=== PATIENT | female | born 1940 | race Caucasian/White ===

== ENCOUNTER → 2016-11-01 | Outpatient (CLI) | payer MEDICARE ==
[2016-11-01 16:27] LABS: Anisocytosis Slight; CH 30.7; CHCM 32.1; HCT 36.3 % (34.0-46.0); HDW 2.49; HGB 11.8 gm/dL (11.4-16.0); MCH 31.2 pg (25.0-35.0); MCHC 32.4 g/dL (31.0-37.0); Mean Platelet Volume 6.7; RBC 3.78 m/uL (3.80-5.40); RDW 16.3 % (11.5-15.5); WBC 8.8 k/uL (3.8-10.6)
[2016-11-01 16:29] LABS: Appearance,Urine Clear (Clear); Bacteria,Urine Occasional /hpf; Bilirubin,Urine Negative (Negative); Glucose,Urine (UA) Negative (Negative); Ketones,Urine Negative (Negative); Leukocyte Esterase,Urine Moderate (Negative); Nitrite,Urine Negative (Negative); PH, Urine 6.5 (5.0-8.0); Particle Count 970; Protein,Urine Negative (Negative); Specific Gravity,Urine 1.006 (1.001-1.035); Squamous Epithelial Cell,Urine 1 /hpf (0-4); UA Billing (MACRO vs. MICRO) MICRO; Urobilinogen,Urine <2.0 mg/dL (<2.0); WBC,Urine 6 /hpf (0-5)
[2016-11-01 16:39] LABS: ALT 27 U/L (9-52); AST 25 U/L (14-36); Alkaline Phosphatase 49 U/L (38-126); Anion Gap 10 mmol/L; Blood Urea Nitrogen 15 mg/dL (7-17); Calcium 9.7 mg/dL (8.4-10.2); Carbon Dioxide 26 mmol/L (22-30); Chloride 102 mmol/L (98-107); Glucose 121 mg/dL (74-99); Non-African American GFR(MDRD) >60 (>60 ml/min/1.73 sqM); Phosphorous 3.8 mg/dL (2.5-4.5); Potassium 5.4 mmol/L (3.5-5.1); Sodium 138 mmol/L (137-145); Total Bilirubin 0.5 mg/dL (0.2-1.3); Total Protein 7.2 g/dL (6.3-8.2)
[2016-11-01 17:45] LABS: Vitamin B12 638 pg/mL
[2016-11-01 19:08] LABS: Hemoglobin A1C 5.6 % (4.2-6.1)
== END | disposition home or self-care (01) ==
LOC: LABWHC1 15:52
PROVIDERS: ATTEND Psychiatry & Neurology Psychiatry
DX: E11.9 Type 2 diabetes mellitus without complications (principal); E03.9 Hypothyroidism, unspecified
CPT/HCPCS: 36415; 80053; 81001; 82306; 82607; 82746; 83036; 84100; 84439; 84443; 85027; 87077; 87086; 87186

== ENCOUNTER → 2017-02-05 | Outpatient (CLI) | payer MEDICARE | END | disposition home or self-care (01) | LOC: LABWHC1 15:44 | PROVIDERS: ATTEND Internal Medicine | DX: E87.5 Hyperkalemia (principal) | CPT/HCPCS: 36415; 84132 ==

== ENCOUNTER → 2017-02-19 | Outpatient (CLI) | payer MEDICARE | END | disposition home or self-care (01) | LOC: LABWHC1 13:50 | PROVIDERS: ATTEND Internal Medicine | DX: J44.9 Chronic obstructive pulmonary disease, unspecified (principal); E11.9 Type 2 diabetes mellitus without complications; E87.5 Hyperkalemia; E78.5 Hyperlipidemia, unspecified; I10 Essential (primary) hypertension; E55.9 Vitamin D deficiency, unspecified | CPT/HCPCS: 36415; 84132 ==

== ENCOUNTER → 2017-02-28 | Outpatient (CLI) | payer MEDICARE ==
[2017-02-28 09:39] LABS: Basophils # (A) 0.1 k/uL (0-0.2); Basophils % (A) 1 %; CH 29.6; CHCM 33.3; Eosinophils # (A) 0.3 k/uL (0-0.7); Eosinophils % (A) 5 %; HCT 35.5 % (34.0-46.0); HDW 2.52; HGB 11.8 gm/dL (11.4-16.0); Luc # (Auto) 0.17; Luc % (Auto) 3; Lymphocytes # (A) 2.2 k/uL (1.0-4.8); Lymphocytes % (A) 35 %; MCH 29.6 pg (25.0-35.0); MCHC 33.2 g/dL (31.0-37.0); Mean Platelet Volume 7.1; Monocytes # (A) 0.4 k/uL (0-1.0); Monocytes % (A) 6 %; Neutrophils # (A) 3.1 k/uL (1.3-7.7); Neutrophils % (A) 50 %; RBC 3.98 m/uL (3.80-5.40); RDW 15.6 % (11.5-15.5); WBC 6.2 k/uL (3.8-10.6); WBC (Perox) 6.62
[2017-02-28 11:05] LABS: Hemoglobin A1C 5.7 % (4.2-6.1)
[2017-02-28 11:26] LABS: Erythrocyte Sedimentation Rate 21 mm/hr (0-20)
[2017-02-28 11:46] LABS: ALT 25 U/L (9-52); AST 17 U/L (14-36); Alkaline Phosphatase 65 U/L (38-126); Anion Gap 10 mmol/L; Blood Urea Nitrogen 17 mg/dL (7-17); C Reactive Protein 7.7 mg/L (<10.0); Calcium 9.8 mg/dL (8.4-10.2); Carbon Dioxide 25 mmol/L (22-30); Chloride 102 mmol/L (98-107); Glucose 84 mg/dL (74-99); Magnesium 1.7 mg/dL (1.6-2.3); Non-African American GFR(MDRD) >60 (>60 ml/min/1.73 sqM); Sodium 137 mmol/L (137-145); Total Bilirubin 0.2 mg/dL (0.2-1.3); Total Protein 6.5 g/dL (6.3-8.2)
== END | disposition home or self-care (01) ==
LOC: LABWHC1 08:15
PROVIDERS: ATTEND Internal Medicine
DX: E27.40 Unspecified adrenocortical insufficiency (principal); D64.9 Anemia, unspecified; E11.9 Type 2 diabetes mellitus without complications; E87.8 Other disorders of electrolyte and fluid balance, not elsewhere classified
CPT/HCPCS: 36415; 80053; 82533; 83036; 83735; 85025; 85652; 86140

== ENCOUNTER → 2017-05-01 | Outpatient (CLI) | payer MEDICARE ==
--- NOTE | 2017-05-01 16:59 | XR ---
EXAMINATION TYPE: XR chest 2V DATE OF EXAM: 05/01/2017 COMPARISON: 04/29/2014 HISTORY: Cough TECHNIQUE: Frontal and lateral views of the chest are obtained. FINDINGS: There is no heart failure nor confluent pneumonic infiltrate. Heart and mediastinum are no rmal. There is no pleural effusion. Bones are osteopenic. IMPRESSION: No active cardiopulmonary disease. No change.
== END | disposition home or self-care (01) ==
LOC: RADXRMAIN 16:05
PROVIDERS: ATTEND Internal Medicine
DX: J06.9 Acute upper respiratory infection, unspecified (principal)
CPT/HCPCS: 71020

== ENCOUNTER → 2017-06-20 | Outpatient (CLI) | payer MEDICARE | END | disposition home or self-care (01) | LOC: LABWHC1 15:54 | PROVIDERS: ATTEND Internal Medicine | DX: E53.8 Deficiency of other specified B group vitamins (principal) | CPT/HCPCS: 36415; 82607; 83921 ==

== ENCOUNTER → 2017-08-30 | Outpatient (CLI) | payer MEDICARE ==
[2017-08-30 12:31] LABS: ALT 32 U/L (9-52); AST 23 U/L (14-36); Anion Gap 10 mmol/L; Blood Urea Nitrogen 26 mg/dL (7-17); C Reactive Protein <5.0 mg/L (<10.0); Calcium 9.7 mg/dL (8.4-10.2); Carbon Dioxide 28 mmol/L (22-30); Chloride 103 mmol/L (98-107); Cholesterol 262 mg/dL (<200); Creatine Kinase 50 U/L (30-135); Glucose 114 mg/dL (74-99); HDL Cholesterol 52 mg/dL (40-60); LDL Cholesterol,Calculated 183 mg/dL (0-99); Potassium 5.4 mmol/L (3.5-5.1); Sodium 141 mmol/L (137-145); Triglycerides 135 mg/dL (<150)
[2017-08-30 15:49] LABS: Iron Saturation 17.37 (12.00-45.00)
[2017-08-30 15:54] LABS: Hemoglobin A1C 5.6 % (4.0-6.0)
[2017-08-30 15:59] LABS: Vitamin D 25 Hydroxy 31.2 ng/mL (30.0-100.0)
== END | disposition home or self-care (01) ==
LOC: LABWHC1 11:40
PROVIDERS: ATTEND Internal Medicine
DX: E11.9 Type 2 diabetes mellitus without complications (principal); E87.5 Hyperkalemia; E78.5 Hyperlipidemia, unspecified; E55.9 Vitamin D deficiency, unspecified; D64.9 Anemia, unspecified
CPT/HCPCS: 36415; 80048; 80061; 82306; 82550; 82728; 83036; 83540; 83550; 84450; 84460; 85652; 86140

== ENCOUNTER 2017-12-01 13:46 | Observation (INO) | payer MEDICARE ==
[2017-12-01] MEDS ORDERED: ASPIRIN 81 MG PO STA (14:06)
--- NOTE | 2017-12-01 14:11 | ED ---
Chest Pain HPI - General Chief Complaint: Chest Pain Stated Complaint: chest; side and back pain; sweaty Time Seen by Provider: 12/01/17 13:50 Source: patient, RN notes reviewed Mode of arrival: wheelchair Limitations: no limitations - History of Present Illness Initial Comments: This is a 76-year-old female with a history of coronary artery disease status post a total of 5 stents who was recently diagnosed with a heart murmur who states she's been having intermittent episodes of left-sided chest pain is burning in nature on and off recently. He states that today she had an episode last about half hour until she took nitroglycerin. She stated it was about a 8/ 10 in severity. She also has some diaphoresis with it. Currently she is pain- free . She did state that the pain this afternoon did radiate down her left arm and to between her shoulder blades. She does she states she's been having some burning sensation to her lower extremities on and off. No abdominal pain currently she is pain-free after the nitroglycerin no fevers or chills no shortness breath no other modifying symptoms or complaints at this time MD Complaint: chest pain - Related Data Home Medications Medication Instructions Recorded Confirmed Aspirin EC [Ecotrin Low Dose] 81 mg PO DAILY 04/29/14 12/01/17 Atenolol 100 mg PO HS 04/29/14 12/01/17 Atorvastatin [Lipitor] 80 mg PO HS 04/29/14 12/01/17 Cevimeline [Evoxac] 30 mg PO TID 04/29/14 12/01/17 Cyclobenzaprine [Flexeril] 10 mg PO HS 04/29/14 12/01/17 Folic Acid 1 mg PO DAILY 04/29/14 12/01/17 Gabapentin [Neurontin] 600 mg PO TID 04/29/14 12/01/17 Glimepiride [Amaryl] 1 mg PO DAILY 04/29/14 12/01/17 HYDROcodone/APAP 10-325MG [[place] 1 each PO Q6H PRN 04/29/14 12/01/17 10-325] Nitroglycerin Extended Release 6.5 mg PO BID 04/29/14 12/01/17 [Nitro-Bid] PARoxetine HCL [Paxil] 30 mg PO DAILY 04/29/14 12/01/17 metFORMIN HCL [Glucophage] 500 mg PO BID 04/29/14 12/01/17 Lisinopril [Zestril] 10 mg PO DAILY 04/29/15 12/01/17 Metoclopramide [Reglan] 10 mg PO ACHS PRN 04/29/15 12/01/17 Previous Rx's Medication Instructions Recorded Nitroglycerin Sl Tabs [Nitrostat] 0.4 mg SUBLINGUAL DIRECTED PRN 05/02/14 #25 tab Allergies Allergy/AdvReac Type Severity Reaction Status Date / Time latex Allergy Itching Verified 12/01/17 13:57 Sulfa (Sulfonamide Allergy Rash/Hives Verified 12/01/17 13:57 Antibiotics) embrel Allergy Rash/Hives Uncoded 12/01/17 13:57 tape Allergy Rash/Hives Uncoded 12/01/17 13:57 Review of Systems ROS Statement: Those systems with pertinent positive or pertinent negative responses have been documented in the HPI. ROS Other: All systems not noted in ROS Statement are negative. EKG Findings - EKG Results: EKG: interpreted by NILES, sinus rhythm (EKG shows a sinus rhythm rate is 78. Interval 182 QRS duration 72 QT since QTC of 46/[address] T-wave configuration) Past Medical History Past Medical History: Chest Pain / Angina, Diabetes Mellitus, Deep Vein Thrombosis (DVT), Eye Disorder, Fibromyalgia, Hyperlipidemia, Hypertension, Rheumatoid Arthritis (RA) Additional Past Medical History / Comment(s): Cataracts History of Any Multi-Drug Resistant Organisms: None Reported Past Surgical History: Appendectomy, Cholecystectomy, Heart Catheterization With Stent, Hernia Repair, Hysterectomy, Tonsillectomy Additional Past Surgical History / Comment(s): 5 heart stents. Cataracts in both eyes. Past Anesthesia/Blood Transfusion Reactions: No Reported Reaction Date of Last Stent Placement:: 2011 Past Psychological History: Depression Smoking Status: Former smoker - Past Family History Father Additional Family Medical History / Comment(s): pt stated had heart issues, but not sure what Mother Additional Family Medical History / Comment(s): leaking valve General Exam - General Exam Comments Initial Comments: This is a well-developed well-nourished awake alert oriented 3 female Limitations: no limitations General appearance: alert, anxious Head exam: Present: atraumatic, normocephalic, normal inspection Eye exam: Present: normal appearance, PERRL, EOMI. Absent: scleral icterus, conjunctival injection, periorbital swelling ENT exam: Present: normal exam, mucous membranes moist Neck exam: Present: normal inspection. Absent: tenderness, meningismus, lymphadenopathy Respiratory exam: Present: normal lung sounds bilaterally. Absent: respiratory distress, wheezes, rales, rhonchi, stridor Cardiovascular Exam: Present: regular rate, normal rhythm, normal heart sounds. Absent: systolic murmur, diastolic murmur, rubs, gallop, clicks GI/Abdominal exam: Present: soft, normal bowel sounds. Absent: distended, tenderness, guarding, rebound, rigid Extremities exam: Present: normal inspection, full ROM, normal capillary refill. Absent: tenderness, pedal edema, joint swelling, calf tenderness Back exam: Present: normal inspection Neurological exam: Present: alert, oriented X3, CN II-XII intact Psychiatric exam: Present: normal affect, normal mood Skin exam: Present: warm, dry, intact, normal color. Absent: rash Course Vital Signs 12/01/17 12/01/17 12/01/17 13:55 14:22 15:01 Temperature 97.6 F Pulse Rate 84 78 87 Respiratory 18 18 18 Rate Blood Pressure 194/85 196/86 167/81 O2 Sat by Pulse 98 100 99 Oximetry 12/01/17 15:55 Temperature Pulse Rate 83 Respiratory 18 Rate Blood Pressure 183/81 O2 Sat by Pulse 100 Oximetry - Reevaluation(s) Reevaluation #1: 12/01/17 16:04 Patient stated he pain-free for well she has some recurrence of pain in the left chest though no changes on the monitor. Chest Pain MDM - MDM I did review the imaging and report no acute findings I did discuss findings with the patient family members patient be admitted for evaluation by cardiology workup thus far is negative however the symptoms are suspicious. Disposition Clinical Impression: Unstable angina pectoris, Chest pain Disposition: ADMITTED IP TO THIS [facility] Condition: Stable Referrals: Cornelio Garcia MD [Primary Care Provider] - 1-2 days
[2017-12-01 14:38] LABS: Anisocytosis Slight; Basophils % (A) 0 %; Eosinophils # (A) 0.1 k/uL (0-0.7); Eosinophils % (A) 1 %; HCT 34.3 % (34.0-46.0); HGB 11.5 gm/dL (11.4-16.0); Lymphocytes # (A) 1.4 k/uL (1.0-4.8); Lymphocytes % (A) 13 %; MCH 30.3 pg (25.0-35.0); MCHC 33.6 g/dL (31.0-37.0); Mean Platelet Volume 7.4; Monocytes # (A) 0.7 k/uL (0-1.0); Monocytes % (A) 6 %; Neutrophils # (A) 8.7 k/uL (1.3-7.7); Neutrophils % (A) 79 %; Platelet Count 272 k/uL (150-450); RBC 3.81 m/uL (3.80-5.40); RDW 16.4 % (11.5-15.5)
[2017-12-01 14:47] LABS: ALT 23 U/L (9-52); AST 18 U/L (14-36); Albumin 4.5 g/dL (3.5-5.0); Alkaline Phosphatase 78 U/L (38-126); Anion Gap 19 mmol/L; Blood Urea Nitrogen 22 mg/dL (7-17); Calcium 10.2 mg/dL (8.4-10.2); Carbon Dioxide 20 mmol/L (22-30); Chloride 103 mmol/L (98-107); Glucose 83 mg/dL (74-99); Magnesium 1.9 mg/dL (1.6-2.3); Potassium 4.3 mmol/L (3.5-5.1); Sodium 142 mmol/L (137-145); Total Bilirubin 0.4 mg/dL (0.2-1.3); Total Protein 7.4 g/dL (6.3-8.2)
[2017-12-01 14:52] LABS: Partial Thromboplastin Time 20.5 sec (22.0-30.0); Prothrombin Time 9.5 sec (9.0-12.0)
--- NOTE | 2017-12-01 14:55 | XR ---
EXAMINATION TYPE: XR chest 2V DATE OF EXAM: 12/01/2017 COMPARISON: 05/01/2017 HISTORY: Chest pain TECHNIQUE: Frontal and lateral views of the chest are obtained. FINDINGS: Heart and mediastinum are normal. Lungs are clear. There is no pleural effusion. There are chest leads. Bony thorax is intact. IMPRESSION: No active cardiopulmonary disease. No change.
[2017-12-01 14:58] LABS: Creatine Kinase 24 U/L (30-135)
[2017-12-01 15:10] LABS: Creatine Kinase MB 0.3 ng/mL (0.0-2.4); Troponin I <0.012 ng/mL (0.000-0.034)
[2017-12-01] MEDS ORDERED: NITROGLYCERIN SL TABS 0.4 MG TAB SUBLINGUAL PRN (16:05)
[2017-12-01] MEDS ORDERED: METOCLOPRAMIDE 10 MG TAB PO PRN (16:08)
[2017-12-01] MEDS ORDERED: SODIUM CHLORIDE 0.9% 1,000 ML IV SCH (16:15)
[2017-12-01 17:21] LABS: Glucose,Whole Blood 141 mg/dL (75-99)
[2017-12-01 17:43] VITALS: BMI 30.9
[2017-12-01] MEDS: metFORMIN 500 MG TAB PO SCH (17:53)
[2017-12-01] MEDS: INSULIN ASPART 100 UNIT/ML 1 ML 10 ML VIAL SQ SCH ×2 (17:54→21:52)
[2017-12-01] MEDS: PANTOPRAZOLE 40 MG TABLET PO SCH (18:36)
[2017-12-01] MEDS: HYDROcodone/APAP 10-325MG 1 EACH TAB PO PRN (18:53)
[2017-12-01 20:56] LABS: Creatine Kinase 20 U/L (30-135)
[2017-12-01 21:09] LABS: Creatine Kinase MB 0.3 ng/mL (0.0-2.4); Troponin I <0.012 ng/mL (0.000-0.034)
[2017-12-01] MEDS: CEVIMELINE 30 MG CAP PO SCH (21:53)
[2017-12-01] MEDS: CYCLOBENZAPRINE 10 MG TAB PO SCH (21:53)
[2017-12-01] MEDS: ATENOLOL 50 MG TAB PO SCH (21:53)
[2017-12-01] MEDS: GABAPENTIN 300 MG CAP PO SCH (21:53)
[2017-12-01] MEDS: ATORVASTATIN 80 MG TAB PO SCH (21:54)
[2017-12-01] MEDS: NITROGLYCERIN EXTENDED RELEASE 6.5 MG CAPSULE.ER PO SCH (21:54)
[2017-12-01 22:05] LABS: Glucose,Whole Blood 83 mg/dL (75-99)
--- NOTE | 2017-12-01 23:13 | HP ---
HISTORY AND PHYSICAL DATE OF ADMISSION: 12/01/2017. ATTENDING PHYSICIAN: Dr. Garcia. HISTORY OF PRESENT ILLNESS: This is a 76-year-old white female who is being admitted by me for Dr. Garcia, who is her primary care physician, and I am covering Dr. Garcia during this weekend. The patient was brought to the emergency room with complaints of chest pain. The patient was having this chest pain on and off for the past 1-2 weeks and it was like a severe burning pain, but it was radiating to the left arm and also since she had some episodes of diaphoresis and she is known to have coronary artery disease and has had a total of 5 stents placed and she has been following with Dr. Ferraro, information security engineer. In the emergency room, her EKG showed a normal sinus rhythm, nonspecific ST changes. There are no acute EKG changes. Apparently her cardiac enzymes are within normal limits and recently Dr. Ferraro noticed a murmur and he was going to further evaluate her cardiac functions and also complete cardiac evaluation. The patient was admitted to the hospital for further evaluation and treatment. PAST MEDICAL HISTORY: Reveals as mentioned before. She is known to have coronary artery disease, hypertensive cardiovascular disease, diabetes mellitus and peripheral neuropathy and rheumatoid arthritis. CURRENT MEDICATIONS: Include: 1. Aspirin 81 mg daily. 2. Atenolol 100 mg p.o. daily. 3. Lipitor 80 mg p.o. daily. 4. Flexeril 10 mg daily. 5. Neurontin 600 mg p.o. t.i.d. 6. Glimepiride 1 mg daily and. 7. [place] 10/325 one every 6 hours p.r.n. 8. Nitro-Bid 30 mg p.o. daily. 9. Nitroglycerin sublingual p.r.n. 10.Paxil 30 mg p.o. daily. 11.Metformin 500 mg p.o. b.i.d. 12.Lisinopril 10 mg daily and. 13.Reglan 10 mg p.o. daily at bedtime p.r.n. ALLERGIES: She is allergic to LATEX, SULFA, ENBREL. REVIEW OF SYSTEMS: The patient denies any headache. Appetite has been good. Bowels regular. She has chest pain as mentioned before and she has no shortness of breath. She has no abdominal pain. She has no polyuria or dysuria. She has no neurological symptoms. PHYSICAL EXAMINATION: Reveals a 76-year-old white female, morbidly obese. She is alert and oriented. There is no jaundice. There is no generalized lymphadenopathy. No petechia or bruises. Temperature 97.6, pulse 84 per minute, blood pressure 167/81. Chest x-ray: No acute process. The patient was admitted to the hospital for further evaluation and treatment. Her family history reveals that the patient has a strong family history of heart disease and coronary artery disease and arthritis. IMPRESSION: 1. Chest pain, unstable angina. 2. History of coronary artery disease, status post multiple stent placements. 3. Hypertensive cardiovascular disease. 4. Diabetes mellitus. 5. Peripheral neuropathy. 6. Rheumatoid arthritis. PLAN: Patient will be admitted to the hospital. Heart will be monitored with telemetry. The patient is back on her previous home medications. Diabetes will be controlled with NovoLog sliding scale. Will get cardiology consultation. Prognosis is guarded. The diagnosis, prognosis and therapeutic plans were discussed in detail with the patient. MMLAUREANOL / IJN: [id number] /
[2017-12-02 04:03] LABS: Cholesterol 149 mg/dL (<200); HDL Cholesterol 56 mg/dL (40-60); LDL Cholesterol,Calculated 69 mg/dL (0-99); Triglycerides 122 mg/dL (<150)
[2017-12-02 04:06] LABS: Creatine Kinase <20 U/L (30-135)
[2017-12-02 04:19] LABS: Creatine Kinase MB 0.3 ng/mL (0.0-2.4); Troponin I <0.012 ng/mL (0.000-0.034)
[2017-12-02] MEDS: HYDROcodone/APAP 10-325MG 1 EACH TAB PO PRN ×2 (08:30→22:14)
--- NOTE | 2017-12-02 08:52 | P.CRDCN ---
History of Present Illness Consult date: 12/02/17 Consult reason: chest pain History of present illness: This is a 76-year-old female patient who presented to the emergency department with left anterior chest burning radiating to her left arm and left scapula. The pain started yesterday afternoon but she states has been on and off for a few days. She states it is different than the pain that she had prior to her myocardial infarction and stent placement but is in the same location. She denies any shortness of breath. Had significant diaphoresis associated with her pain. She follows with Dr. Arriola in the office on a regular basis and last visit was 2 days ago. She had a recent echocardiogram and was told that she has a leaky a valve but was able to give details.The patient had [address] Matt and 3 stents and warmth in the past. She had some bilateral lower extremity pain below the knee found her feet during this episode. I examine her lower extremities and her pedal pulses are palpable bilaterally. No skin color changes noted. The patient did take one nitroglycerin with relief of her chest pain at home. Currently she has no chest discomfort and she is seen lying in bed in no acute distress. Review of Systems All systems: negative Constitutional: Reports as per HPI Eyes: denies blurred vision Cardiovascular: Reports as per HPI, Reports chest pain Past Medical History Past Medical History: Chest Pain / Angina, Diabetes Mellitus, Deep Vein Thrombosis (DVT), Eye Disorder, Fibromyalgia, Hyperlipidemia, Hypertension, Rheumatoid Arthritis (RA) Additional Past Medical History / Comment(s): Cataracts History of Any Multi-Drug Resistant Organisms: None Reported Past Surgical History: Appendectomy, Cholecystectomy, Heart Catheterization With Stent, Hernia Repair, Hysterectomy, Tonsillectomy Additional Past Surgical History / Comment(s): 5 heart stents. Cataracts in both eyes. Past Anesthesia/Blood Transfusion Reactions: No Reported Reaction Date of Last Stent Placement:: 2011 Past Psychological History: Depression Smoking Status: Former smoker Past Alcohol Use History: None Reported Past Drug Use History: None Reported - Past Family History Father Additional Family Medical History / Comment(s): pt stated had heart issues, but not sure what Mother Additional Family Medical History / Comment(s): leaking valve Medications and Allergies Home Medications Medication Instructions Recorded Confirmed Type Aspirin EC [Ecotrin Low Dose] 81 mg PO DAILY 04/29/14 12/01/17 History Atenolol 100 mg PO HS 04/29/14 12/01/17 History Atorvastatin [Lipitor] 80 mg PO HS 04/29/14 12/01/17 History Cevimeline [Evoxac] 30 mg PO BID 04/29/14 12/01/17 History Gabapentin [Neurontin] 600 mg PO TID 04/29/14 12/01/17 History HYDROcodone/APAP 10-325MG [[place] 1 tab PO TID PRN 04/29/14 12/01/17 History 10-325] metFORMIN HCL [Glucophage] 500 mg PO AC-BID 04/29/14 12/01/17 History DULoxetine HCL [Cymbalta] 90 mg PO DAILY 12/01/17 12/01/17 History Loratadine [Claritin] 10 mg PO DAILY 12/01/17 12/01/17 History Memantine [Namenda] 10 mg PO BID 12/01/17 12/01/17 History Methotrexate Sodium [Methotrexate] 25 mg PO Q7D 12/01/17 12/01/17 History Omeprazole [PriLOSEC] 20 mg PO DAILY 12/01/17 12/01/17 History Terazosin [Hytrin] 1 mg PO HS 12/01/17 12/01/17 History Tofacitinib Citrate [Xeljanz] 5 mg PO BID 12/01/17 12/01/17 History buPROPion HCL [Wellbutrin XL] 300 mg PO DAILY 12/01/17 12/01/17 History metFORMIN HCL [Glucophage] 1,000 mg PO AC-SUPPER 12/01/17 12/01/17 History valACYclovir [Valtrex] 500 mg PO DAILY 12/01/17 12/01/17 History Allergies Allergy/AdvReac Type Severity Reaction Status Date / Time etanercept [From Enbrel] Allergy Rash/Hives Verified 12/01/17 16:49 latex Allergy Itching Verified 12/01/17 16:49 Sulfa (Sulfonamide Allergy Rash/Hives Verified 12/01/17 16:49 Antibiotics) tape Allergy Rash/Hives Uncoded 12/01/17 13:57 Physical Exam Vitals: Vital Signs Temp Pulse Pulse Resp BP BP Pulse Ox 12/02/17 06:06 98.1 F 77 18 110/60 96 12/02/17 04:00 98.1 F 77 18 110/60 96 12/02/17 00:00 98.0 F 85 18 169/74 95 12/01/17 20:00 18 12/01/17 19:46 98.1 F 86 18 171/75 95 12/01/17 18:16 16 12/01/17 16:50 97.8 F 86 16 179/77 98 12/01/17 15:55 83 18 183/81 100 12/01/17 15:01 87 18 167/81 99 12/01/17 14:22 78 18 196/86 100 12/01/17 13:55 97.6 F 84 18 194/85 98 Intake and Output 12/01/17 12/02/17 12/02/17 22:59 06:59 14:59 Other: Voiding Method Toilet Toilet Toilet # Voids 1 Weight 78.6 kg 78.6 kg - Constitutional General appearance: average body habitus - EENT Eyes: normal appearance Ears: bilateral: normal - Neck No JVD Carotids: bilateral: upstroke normal - Respiratory Respiratory: bilateral: CTA - Cardiovascular Rhythm: regular Abnormal Heart Sounds: systolic murmur - Gastrointestinal General gastrointestinal: normal bowel sounds - Integumentary Integumentary: normal - Neurologic Neurologic: CNII-XII intact Results 12/01/17 14:22 12/01/17 14:22 Cardiac Enzymes 12/01/17 12/01/17 12/01/17 Range/Units 14:22 14:22 20:25 AST 18 (14-36) U/L CK-MB (CK-2) 0.3 0.3 (0.0-2.4) ng/mL Troponin I <0.012 <0.012 (0.000-0.034) ng/mL 12/02/17 Range/Units 03:19 AST (14-36) U/L CK-MB (CK-2) 0.3 (0.0-2.4) ng/mL Troponin I <0.012 (0.000-0.034) ng/mL Coagulation 12/01/17 Range/Units 14:22 PT 9.5 (9.0-12.0) sec APTT 20.5 L (22.0-30.0) sec Lipids 12/02/17 Range/Units 03:19 Triglycerides 122 (<150) mg/dL Cholesterol 149 (<200) mg/dL HDL Cholesterol 56 (40-60) mg/dL CBC 12/01/17 Range/Units 14:22 WBC 11.0 H (3.8-10.6) k/uL RBC 3.81 (3.80-5.40) m/uL Hgb 11.5 (11.4-16.0) gm/dL Hct 34.3 (34.0-46.0) % Plt Count 272 (150-450) k/uL Comprehensive Metabolic Panel 12/01/17 Range/Units 14:22 Sodium 142 (137-145) mmol/L Potassium 4.3 (3.5-5.1) mmol/L Chloride 103 (98-107) mmol/L Carbon Dioxide 20 L (22-30) mmol/L BUN 22 H (7-17) mg/dL Creatinine 0.70 (0.52-1.04) mg/dL Glucose 83 (74-99) mg/dL Calcium 10.2 (8.4-10.2) mg/dL AST 18 (14-36) U/L ALT 23 (9-52) U/L Alkaline Phosphatase 78 (38-126) U/L Total Protein 7.4 (6.3-8.2) g/dL Albumin 4.5 (3.5-5.0) g/dL Current Medications Generic Name Dose Route Start Last Admin Trade Name Freq PRN Reason Stop Dose Admin Hydrocodone Bitart/Acetaminophen 1 each 12/01/17 16:08 12/02/17 08:30 [place] 10 PO 1 each Q6H PRN Administration Pain Aspirin 325 mg 12/02/17 09:00 Aspirin PO DAILY RUKHSANA Atenolol 100 mg 12/01/17 21:00 12/01/17 21:53 Tenormin PO 100 mg HS RUKHSANA Administration Atorvastatin Calcium 80 mg 12/01/17 21:00 12/01/17 21:54 Lipitor PO 80 mg HS RUKHSANA Administration Cevimeline HCl 30 mg 12/01/17 22:00 12/01/17 21:53 Evoxac PO 30 mg TID RUKHSANA Administration Cyclobenzaprine HCl 10 mg 12/01/17 21:00 12/01/17 21:53 Flexeril PO 10 mg HS RUKHSANA Administration Folic Acid 1 mg 12/02/17 09:00 Folic Acid PO DAILY [facility] Gabapentin 600 mg 12/01/17 22:00 12/01/17 21:53 Neurontin PO 600 mg TID RUKHSANA Administration Glimepiride 1 mg 12/02/17 07:30 Amaryl PO AC-BRKFST [facility] Insulin Aspart 0 unit 12/01/17 17:30 12/01/17 21:52 Novolog SQ Not Given ACHS [facility] Protocol Lisinopril 10 mg 12/02/17 09:00 Zestril PO DAILY [facility] Metformin HCl 500 mg 12/01/17 17:30 12/01/17 17:53 Glucophage PO 500 mg BID-W/MEALS RUKHSANA Administration Metoclopramide HCl 10 mg 12/01/17 16:08 Reglan PO ACHS PRN Nausea And Vomiting Nitroglycerin 6.5 mg 12/01/17 21:00 12/01/17 21:54 Nitro-Bid PO Not Given BID [facility] Nitroglycerin 0.4 mg 12/01/17 16:05 Nitrostat SUBLINGUAL Q5M PRN Chest Pain Pantoprazole Sodium 40 mg 12/01/17 18:00 12/01/17 18:36 Protonix PO 40 mg AC-BID RUKHSANA Administration Paroxetine HCl 30 mg 12/02/17 09:00 Paxil PO DAILY [facility] Sodium Chloride 10 ml 12/01/17 21:00 12/01/17 21:54 Saline Flush IV 10 ml BID RUKHSANA Administration Intake and Output 12/01/17 12/02/17 12/02/17 22:59 06:59 14:59 Other: Voiding Method Toilet Toilet Toilet # Voids 1 Weight 78.6 kg 78.6 kg 12/01/17 14:22 12/01/17 14:22 - EKG Interpretation EKG: sinus rhythm (T-wave inversion in lead V1) Assessment and Plan Assessment: Chest pain History of CAD with stent 5 Diabetes mellitus Hypertension Hyperlipidemia Plan: Obtain recent echocardiogram and records from previous cardiac stents. The patient's pain is consistent with angina and we will start heparin drip and apply Nitropaste to the chest wall. Schedule for Lexiscan stress test tomorrow. Further recommendations will be made depending on the results. Thank you very common for this consultation.
[2017-12-02] MEDS: metFORMIN 500 MG TAB PO SCH ×2 (08:55→17:09)
[2017-12-02] MEDS: INSULIN ASPART 100 UNIT/ML 1 ML 10 ML VIAL SQ SCH ×4 (08:55→22:12)
[2017-12-02] MEDS: LISINOPRIL 10 MG TAB PO SCH (08:58)
[2017-12-02] MEDS: PANTOPRAZOLE 40 MG TABLET PO SCH ×2 (08:58→17:22)
[2017-12-02] MEDS: GABAPENTIN 300 MG CAP PO SCH ×3 (08:58→22:14)
[2017-12-02] MEDS: PARoxetine 10 MG TAB PO SCH (08:59)
[2017-12-02] MEDS: CEVIMELINE 30 MG CAP PO SCH ×3 (08:59→22:14)
[2017-12-02] MEDS: NITROGLYCERIN EXTENDED RELEASE 6.5 MG CAPSULE.ER PO SCH ×2 (08:59→22:14)
[2017-12-02] MEDS: GLIMEPIRIDE 1 MG TAB PO SCH (08:59)
[2017-12-02] MEDS: FOLIC ACID 1 MG TAB PO SCH (08:59)
[2017-12-02] MEDS ORDERED: NON-FORMULARY DRUG (Aspirin Ec 81 MG) PO SCH (09:00)
[2017-12-02 09:05] LABS: Glucose,Whole Blood 97 mg/dL (75-99)
[2017-12-02] MEDS: ASPIRIN 325 MG TAB PO SCH (09:16)
[2017-12-02] MEDS ORDERED: DOCUSATE 100 MG CAP PO PRN (11:34)
[2017-12-02 11:52] LABS: Glucose,Whole Blood 104 mg/dL (75-99)
[2017-12-02 16:51] LABS: Glucose,Whole Blood 105 mg/dL (75-99)
[2017-12-02] MEDS: ACETAMINOPHEN TAB 325 MG TAB PO PRN (20:03)
[2017-12-02] MEDS: ATENOLOL 50 MG TAB PO SCH (21:15)
[2017-12-02] MEDS: CYCLOBENZAPRINE 10 MG TAB PO SCH (21:15)
[2017-12-02] MEDS: ATORVASTATIN 80 MG TAB PO SCH (21:15)
[2017-12-02 21:32] LABS: Glucose,Whole Blood 149 mg/dL (75-99)
[2017-12-02] MEDS ORDERED: MELATONIN 5 MG TABLET PO SCH (22:15)
--- NOTE | 2017-12-02 22:50 | PN ---
PROGRESS NOTE DATE OF SERVICE: 12/02/2017. HISTORY: This is a 76-year-old white female who is known to have coronary artery disease and has had multiple stents placed in the past. Apparently, a total of 5 stents have been inserted in the past. She was brought to the emergency room because of recurrent burning chest pain, sometimes the pain radiates to the left arm. In the ER she has some relief with nitroglycerin. Her cardiac enzymes were within normal limits. EKG did not show any acute changes. Because of a history of coronary artery disease and stent placement, the patient was admitted to the hospital for further evaluation and treatment. The patient's heart was monitored with telemetry and she was placed back on her previous medications. [facility] were consulted and the patient was seen by Dr. Edwin Ferraro. He is following the patient. She is being further evaluated by the post graduate internship. The patient seems to be fairly comfortable. She denies any chest pain. Vital signs are stable. Heart is in sinus rhythm. Lungs are clear. There is no acute cardiorespiratory problems. We will continue current treatments and medications. Primary care physician is Dr. Garcia, he will resume her care starting tomorrow. MMODL / IJN: [id number] /
[2017-12-03] MEDS ORDERED: REGADENOSON 0.4 MG/5 ML SYRINGE IV ONE (07:49)
[2017-12-03] MEDS ORDERED: AMINOPHYLLINE 500 MG/20 ML VIAL IV PRN (07:49)
[2017-12-03 08:10] LABS: Glucose,Whole Blood 101 mg/dL (75-99)
[2017-12-03 08:27] VITALS: RESP 18
[2017-12-03] MEDS: INSULIN ASPART 100 UNIT/ML 1 ML 10 ML VIAL SQ SCH ×2 (08:27→12:32)
[2017-12-03] MEDS ORDERED: AMINOPHYLLINE 250 MG/10 ML VIAL IV ONE (10:10)
--- NOTE | 2017-12-03 10:59 | NM ---
EXAMINATION TYPE: NM stress lexiscan cardiolite DATE OF EXAM: 12/03/2017 COMPARISON: NONE HISTORY: TECHNIQUE: After the intravenous administration of 10.6 mCi Tc 99m Sestamibi - Cardiolite resting SP ECT images acquired 45 minutes post injection. The patient received 0.4mg Lexiscan, 26.7 mCi Tc 99m Sestamibi - Stress images obtained [address] injection FINDINGS: Review of stress and rest SPECT images demonstrates no distinct perfusion abnormality. Gated analysi s shows normal wall motion with an estimated left ventricular ejection fraction of 55 %. IMPRESSION: No scintigraphic evidence for reversible ischemia.
[2017-12-03] MEDS: GABAPENTIN 300 MG CAP PO SCH (11:08)
[2017-12-03] MEDS: LISINOPRIL 10 MG TAB PO SCH (11:08)
[2017-12-03] MEDS: GLIMEPIRIDE 1 MG TAB PO SCH (11:08)
[2017-12-03] MEDS: FOLIC ACID 1 MG TAB PO SCH (11:08)
[2017-12-03] MEDS: NITROGLYCERIN EXTENDED RELEASE 6.5 MG CAPSULE.ER PO SCH (11:08)
[2017-12-03] MEDS: PANTOPRAZOLE 40 MG TABLET PO SCH (11:08)
[2017-12-03] MEDS: CEVIMELINE 30 MG CAP PO SCH (11:08)
[2017-12-03] MEDS: ASPIRIN 325 MG TAB PO SCH (11:08)
[2017-12-03] MEDS: PARoxetine 10 MG TAB PO SCH (11:09)
[2017-12-03] MEDS: ACETAMINOPHEN TAB 325 MG TAB PO PRN (11:14)
[2017-12-03 11:28] VITALS: BP 119/57; PULSE 72; TEMP 98.3
[2017-12-03] MEDS ORDERED: ASPIRIN 81 MG PO SCH (12:14)
[2017-12-03 12:15] LABS: Glucose,Whole Blood 177 mg/dL (75-99)
[2017-12-03] MEDS: metFORMIN 500 MG TAB PO SCH (12:16)
--- NOTE | 2017-12-03 12:22 | P.PN ---
Subjective Progress Note Date: 12/03/17 Mrs. Zazueta is a pleasant 76-year-old female past medical history significant for coronary artery disease, diabetes mellitus, dyslipidemia, hypertension and dyslipidemia. She follows with Dr. Ferraro in the office. We are following with her on this admission for an episode of chest pain. She has had no further symptoms of chest pain since admission. Most recent cardiac catheterization was reviewed from 04/2014 which revealed the left main artery was normal-sized with no significant stenosis, previously stented segment from proximal to mid LAD shows mild in-stent restenosis with portions up to 40-50%, circumflex artery mild to moderate disease, RCA is large dominant vessel and in the midportion has a 40-50% stenosis. Dobutamine stress echocardiogram was obtained at that time which showed no evidence of stress induced ischemia and so angioplasty was not performed, maximum medical therapy recommended. Telemetry tracings have been unremarkable. Cardiac enzymes negative 3, LDL 69 , HDL 56. Blood pressure 112/54 heart rate 63 afebrile maintaining oxygen saturation on room air. Objective - Vital Signs Vital signs: Vital Signs Temp 98.3 F 12/03/17 11:25 Pulse 72 12/03/17 11:58 Resp 18 12/03/17 11:58 BP 119/57 12/03/17 11:25 Pulse Ox 96 12/03/17 11:25 Intake & Output 12/02/17 12/03/17 12/03/17 18:59 06:59 18:59 Weight 78.471 kg Other: Voiding Method Toilet Toilet Toilet - Exam GENERAL: Well-appearing, well-nourished and in no acute distress. NECK: Supple without JVD or thyromegaly. LUNGS: Breath sounds clear to auscultation bilaterally. Respiration equal and unlabored. No wheezes, rales or rhonchi. HEART: Regular rate and rhythm with systolic murmur at the base, no rubs or gallops. S1 and S2 heard. EXTREMITIES: Normal range of motion, no edema. No clubbing or cyanosis. Peripheral pulses intact and strong. - Labs CBC & Chem 7: 12/01/17 14:22 12/01/17 14:22 Labs: Abnormal Lab Results - Last 24 Hours (Table) 12/02/17 12/02/17 12/03/17 Range/Units 16:49 21:13 08:07 POC Glucose (mg/dL) 105 H 149 H 101 H (75-99) mg/dL Assessment and Plan Assessment: ASSESSMENT 1. Chest pain, atypical. An acute coronary event has been ruled out. 2. History of coronary artery disease. 3. Hypertension 4. Dyslipidemia 5. Diabetes mellitus PLAN Office records have been reviewed. Lexiscan stress test was ordered and performed. There is no evidence for reversible ischemia with an EF of 55%. She is stable from a cardiac perspective. Follow-up with Dr. Ferraro in 2 weeks. Nurse Practitioner note has been reviewed, I agree with a documented findings and plan of care. Patient was seen and examined.
[2017-12-03] MEDS: HYDROcodone/APAP 10-325MG 1 EACH TAB PO PRN (12:37)
--- NOTE | 2017-12-03 13:43 | P.DS ---
Providers Date of admission: 12/01/17 16:05 Attending physician: Cornelio Garcia Consults: 12/01/17 16:05 Consult Physician Urgent Consulting Provider: Edwin Ferraro Consult Reason/Comments: Chest pain Do you want consulting provider notified?: Yes Primary care physician: Cornelio Garcia Patient Condition at Discharge: Stable Plan - Discharge Summary Discharge Rx Participant: No New Discharge Prescriptions: Continue metFORMIN HCL [Glucophage] 500 mg PO AC-BID Cevimeline [Evoxac] 30 mg PO BID Aspirin EC [Ecotrin Low Dose] 81 mg PO DAILY HYDROcodone/APAP 10-325MG [[place] 10-325] 1 tab PO TID PRN PRN Reason: Pain Gabapentin [Neurontin] 600 mg PO TID Atenolol 100 mg PO HS metFORMIN HCL [Glucophage] 1,000 mg PO AC-SUPPER valACYclovir [Valtrex] 500 mg PO DAILY Terazosin [Hytrin] 1 mg PO HS Omeprazole [PriLOSEC] 20 mg PO DAILY Methotrexate Sodium [Methotrexate] 25 mg PO Q7D buPROPion HCL [Wellbutrin XL] 300 mg PO DAILY Memantine [Namenda] 10 mg PO BID Loratadine [Claritin] 10 mg PO DAILY DULoxetine HCL [Cymbalta] 90 mg PO DAILY Tofacitinib Citrate [Xeljanz] 5 mg PO BID No Action Atorvastatin [Lipitor] 80 mg PO HS Discharge Medication List Aspirin EC [Ecotrin Low Dose] 81 mg PO DAILY 04/29/14 [History] Atenolol 100 mg PO HS 04/29/14 [History] Atorvastatin [Lipitor] 80 mg PO HS 04/29/14 [History] Cevimeline [Evoxac] 30 mg PO BID 04/29/14 [History] Gabapentin [Neurontin] 600 mg PO TID 04/29/14 [History] HYDROcodone/APAP 10-325MG [[place] 10-325] 1 tab PO TID PRN 04/29/14 [History] metFORMIN HCL [Glucophage] 500 mg PO AC-BID 04/29/14 [History] DULoxetine HCL [Cymbalta] 90 mg PO DAILY 12/01/17 [History] Loratadine [Claritin] 10 mg PO DAILY 12/01/17 [History] Memantine [Namenda] 10 mg PO BID 12/01/17 [History] Methotrexate Sodium [Methotrexate] 25 mg PO Q7D 12/01/17 [History] Omeprazole [PriLOSEC] 20 mg PO DAILY 12/01/17 [History] Terazosin [Hytrin] 1 mg PO HS 12/01/17 [History] Tofacitinib Citrate [Xeljanz] 5 mg PO BID 12/01/17 [History] buPROPion HCL [Wellbutrin XL] 300 mg PO DAILY 12/01/17 [History] metFORMIN HCL [Glucophage] 1,000 mg PO AC-SUPPER 12/01/17 [History] valACYclovir [Valtrex] 500 mg PO DAILY 12/01/17 [History] Follow up Appointment(s)/Referral(s): Edwin Ferraro MD [STAFF PHYSICIAN] - 2 Weeks Cornelio Garcia MD [Primary Care Provider] - 1-2 days
--- NOTE | 2017-12-03 13:43 | P.DS ---
Providers Date of admission: 12/01/17 16:05 Expected date of discharge: 12/03/17 Attending physician: Cornelio Garcia Consults: 12/01/17 16:05 Consult Physician Urgent Consulting Provider: Edwin Ferraro Consult Reason/Comments: Chest pain Do you want consulting provider notified?: Yes Primary care physician: Cornelio Garcia Patient Condition at Discharge: Stable Plan - Discharge Summary Discharge Rx Participant: No New Discharge Prescriptions: Continue metFORMIN HCL [Glucophage] 500 mg PO AC-BID Cevimeline [Evoxac] 30 mg PO BID Aspirin EC [Ecotrin Low Dose] 81 mg PO DAILY HYDROcodone/APAP 10-325MG [[place] 10-325] 1 tab PO TID PRN PRN Reason: Pain Gabapentin [Neurontin] 600 mg PO TID Atenolol 100 mg PO HS metFORMIN HCL [Glucophage] 1,000 mg PO AC-SUPPER valACYclovir [Valtrex] 500 mg PO DAILY Terazosin [Hytrin] 1 mg PO HS Omeprazole [PriLOSEC] 20 mg PO DAILY Methotrexate Sodium [Methotrexate] 25 mg PO Q7D buPROPion HCL [Wellbutrin XL] 300 mg PO DAILY Memantine [Namenda] 10 mg PO BID Loratadine [Claritin] 10 mg PO DAILY DULoxetine HCL [Cymbalta] 90 mg PO DAILY Tofacitinib Citrate [Xeljanz] 5 mg PO BID No Action Atorvastatin [Lipitor] 80 mg PO HS Discharge Medication List Aspirin EC [Ecotrin Low Dose] 81 mg PO DAILY 04/29/14 [History] Atenolol 100 mg PO HS 04/29/14 [History] Atorvastatin [Lipitor] 80 mg PO HS 04/29/14 [History] Cevimeline [Evoxac] 30 mg PO BID 04/29/14 [History] Gabapentin [Neurontin] 600 mg PO TID 04/29/14 [History] HYDROcodone/APAP 10-325MG [[place] 10-325] 1 tab PO TID PRN 04/29/14 [History] metFORMIN HCL [Glucophage] 500 mg PO AC-BID 04/29/14 [History] DULoxetine HCL [Cymbalta] 90 mg PO DAILY 12/01/17 [History] Loratadine [Claritin] 10 mg PO DAILY 12/01/17 [History] Memantine [Namenda] 10 mg PO BID 12/01/17 [History] Methotrexate Sodium [Methotrexate] 25 mg PO Q7D 12/01/17 [History] Omeprazole [PriLOSEC] 20 mg PO DAILY 12/01/17 [History] Terazosin [Hytrin] 1 mg PO HS 12/01/17 [History] Tofacitinib Citrate [Xeljanz] 5 mg PO BID 12/01/17 [History] buPROPion HCL [Wellbutrin XL] 300 mg PO DAILY 12/01/17 [History] metFORMIN HCL [Glucophage] 1,000 mg PO AC-SUPPER 12/01/17 [History] valACYclovir [Valtrex] 500 mg PO DAILY 12/01/17 [History] Follow up Appointment(s)/Referral(s): Edwin Ferraro MD [STAFF PHYSICIAN] - 2 Weeks Cornelio Garcia MD [Primary Care Provider] - 1-2 days
[2017-12-03 14:21] LABS: Hemoglobin A1C 5.9 % (4.0-6.0)
--- NOTE | 2017-12-03 14:33 | EST ---
EXERCISE STRESS DATE OF SERVICE: 12/03/2017 AGE: 76 SEX: F HT: 5'2' WT: 175 PROTOCOL: Lexiscan Cardiolite Stress Test HEART RATE REST: 58 BLOOD PRESSURE REST: 104/41 MAXIMUM HEART RATE ACHIEVED: 71 MAXIMUM BLOOD PRESSURE: 115/57 85% MPHR: 123 100% MPHR: 145 INDICATIONS: Baseline rhythm is sinus mechanism, rate 58, normal axis and intervals, nonspecific ST- T wave changes. Baseline blood pressure 104/41 mmHg. Patient's electrograph monitoring revealed no evidence of diagnostic ischemic ST deviation. Cardiolite was injected per protocol. CONCLUSION: 1. Nondiagnostic electrocardiograph stress testing. 2. Nuclear images will be reported separately. MMODL / IJN: [id number] /
--- NOTE | 2017-12-03 18:21 | DS ---
DISCHARGE SUMMARY DATE OF SERVICE: 12/03/2017. DATA: Her height is 5 feet 2 inches. Weight 78.47 kg. BSA 1.8 m2, BMI 31.6 kg/m2, on the obesity side. ALLERGIES: MULTIPLE: 1. ETANERCEPT (Enbrel) caused rash and hives). 2. LATEX caused itching. 3. SULFA and SULFONAMIDE DERIVATIVES caused rash and hives. 4. TAPE caused rash and hives. FINAL DIAGNOSES: 1. Chest pain with normal EKG and normal troponin. 2. High risk with a history of previous stent with coronary artery disease x5. 3. Underlying rheumatoid arthritis. 4. Diabetes mellitus, type 2. 5. Hypertension, currently controlled. 6. Gastroesophageal reflux disease. 7. Acute coronary event has been ruled out. 8. Cleared for discharge by cardiology group. Patient presented to the emergency room with the complaint of chest pain and perspiration (sweaty) with a history of previous 5 stents and coronary artery disease. She was seen in the emergency room and evaluated, with the impression of unstable angina. Cardiology consultation was ordered and she was placed on observation status. They called Dr. Willam Wallace, who saw the patient and did her history and physical. Patient was seen by Cardiology. They requested a Lexiscan stress test. This was subsequently done, and the result was negative. The patient was seen today and evaluated. She was clear of chest pain. She stated that when she came in she had sudden onset of flushing and her legs were warm as well. The patient has been treated for back pain by Dr. Lemons and she has been on Lyrica as well. The patient is seen today face to face. Her vital signs on discharge are temperature 98.3, pulse 72, respiratory rate 18, blood pressure 119/57 with a mean of 77 and oxygen saturation 96%. HEENT was negative. Neck was supple. Chest was clear to auscultation and percussion. HEART: PMI in the 5th intercostal space outside the midclavicular line with normal S1, S2. No gallop. The abdomen was obese. Positive bowel sounds. No organ enlargement. EXTREMITIES: No edema. Positive pulses and normal movement. Ambulatory. No neuro deficits. ASSESSMENT: Patient is in stable general condition for discharge after clearance from the cardiology group. 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 Ferraro, next week, and myself, Dr. Garcia, next week in 1-2 days. Further evaluation of the chest pain recurrence will be done as outpatient. During her present stress and SPECT scan she was found to have an ejection fraction of 55% with no evidence of abnormalities in the perfusion. MMODL / IJN: [id number] /
== END 2017-12-03 15:10 | disposition home or self-care (01) ==
LOC: EC 13:46 → 3OBS 16:05 → 3SUR 18:58 → 3OBS 12-03 07:18
PROVIDERS: ADMIT Internal Medicine; ATTEND Internal Medicine
DX: R07.89 Other chest pain (principal); R61 Generalized hyperhidrosis; M54.9 Dorsalgia, unspecified; I25.10 Atherosclerotic heart disease of native coronary artery without angina pectoris; Z95.5 Presence of coronary angioplasty implant and graft; M06.9 Rheumatoid arthritis, unspecified; I11.9 Hypertensive heart disease without heart failure; E66.01 Morbid (severe) obesity due to excess calories; Z68.31 Body mass index [BMI] 31.0-31.9, adult; E11.42 Type 2 diabetes mellitus with diabetic polyneuropathy; K21.9 Gastro-esophageal reflux disease without esophagitis; R01.1 Cardiac murmur, unspecified; I25.2 Old myocardial infarction; M79.661 Pain in right lower leg; M79.662 Pain in left lower leg; M79.7 Fibromyalgia; F32.9 Major depressive disorder, single episode, unspecified; E78.5 Hyperlipidemia, unspecified; Z79.899 Other long term (current) drug therapy; Z79.82 Long term (current) use of aspirin; Z79.84 Long term (current) use of oral hypoglycemic drugs; Z88.2 Allergy status to sulfonamides; Z88.8 Allergy status to other drugs, medicaments and biological substances; Z91.048 Other nonmedicinal substance allergy status; Z91.040 Latex allergy status; Z86.718 Personal history of other venous thrombosis and embolism; Z90.49 Acquired absence of other specified parts of digestive tract; Z87.891 Personal history of nicotine dependence
CPT/HCPCS: 99285 ×2; 36415; 94760; 93005; 93017; 83880; 80061; 80053; 82550 ×2; 82553 ×2; 83735; 84484 ×2; 85025; 85610; 85730; 83036; 71046; 78452; G0378 ×3; A9500; J2785; J0280

== ENCOUNTER 2018-01-03 10:13 | Inpatient (IN) | payer MEDICARE ==
[2018-01-03] MEDS ORDERED: IPRATROPIUM-ALBUTEROL 3 ML NEB INHALATION STA (10:44)
[2018-01-03] MEDS ORDERED: ASPIRIN 81 MG PO STA (10:45)
[2018-01-03] MEDS ORDERED: NITROGLYCERIN SL TABS 0.4 MG TAB SUBLINGUAL STA (10:45)
--- NOTE | 2018-01-03 10:49 | ED ---
General Adult HPI - General Chief complaint: Shortness of Breath Stated complaint: Chest Pain Time Seen by Provider: 01/03/18 10:17 Source: patient, family, EMS, RN notes reviewed Mode of arrival: EMS Limitations: no limitations - History of Present Illness Initial comments: Patient is a pleasant 77-year-old female presenting to the emergency Department with chest discomfort. Patient did not feel well last night however symptoms mostly started this morning. Patient has had a cough for a few days. Patient has been easily fatigued the past few days. Patient has dyspnea on exertion. Patient does have chest discomfort that is actually more in her back. Chest discomfort does feel somewhat like previously diagnosed heart problems. Patient does have a history of heart attack and several previous stents. Patient denies any fevers. - Related Data Home Medications Medication Instructions Recorded Confirmed Aspirin EC [Ecotrin Low Dose] 81 mg PO DAILY 04/29/14 01/03/18 Atenolol 100 mg PO HS 04/29/14 01/03/18 Atorvastatin [Lipitor] 80 mg PO HS 04/29/14 01/03/18 Cevimeline [Evoxac] 30 mg PO BID 04/29/14 01/03/18 Gabapentin [Neurontin] 600 mg PO TID 04/29/14 01/03/18 HYDROcodone/APAP 10-325MG [[place] 1 tab PO TID PRN 04/29/14 01/03/18 10-325] metFORMIN HCL [Glucophage] 500 mg PO AC-BID 04/29/14 01/03/18 DULoxetine HCL [Cymbalta] 90 mg PO DAILY 12/01/17 01/03/18 Loratadine [Claritin] 10 mg PO DAILY 12/01/17 01/03/18 Memantine [Namenda] 10 mg PO BID 12/01/17 01/03/18 Methotrexate Sodium [Methotrexate] 25 mg PO Q7D 12/01/17 01/03/18 Omeprazole [PriLOSEC] 20 mg PO DAILY 12/01/17 01/03/18 Terazosin [Hytrin] 1 mg PO HS 12/01/17 01/03/18 Tofacitinib Citrate [Xeljanz] 5 mg PO BID 12/01/17 01/03/18 buPROPion HCL [Wellbutrin XL] 300 mg PO DAILY 12/01/17 01/03/18 metFORMIN HCL [Glucophage] 1,000 mg PO AC-SUPPER 12/01/17 01/03/18 valACYclovir [Valtrex] 500 mg PO DAILY 12/01/17 01/03/18 Allergies Allergy/AdvReac Type Severity Reaction Status Date / Time etanercept [From Enbrel] Allergy Rash/Hives Verified 01/03/18 10:36 latex Allergy Itching Verified 01/03/18 10:36 Sulfa (Sulfonamide Allergy Rash/Hives Verified 01/03/18 10:36 Antibiotics) tape Allergy Rash/Hives Uncoded 12/01/17 13:57 Review of Systems ROS Statement: Those systems with pertinent positive or pertinent negative responses have been documented in the HPI. ROS Other: All systems not noted in ROS Statement are negative. Constitutional: Denies: fever Eyes: Denies: eye pain ENT: Denies: ear pain Respiratory: Reports: cough, dyspnea Cardiovascular: Reports: chest pain Endocrine: Reports: fatigue Gastrointestinal: Denies: abdominal pain Genitourinary: Denies: dysuria Musculoskeletal: Reports: as per HPI, back pain Skin: Denies: rash Neurological: Denies: weakness Past Medical History Past Medical History: Coronary Artery Disease (CAD), Chest Pain / Angina, CVA/ TIA, Diabetes Mellitus, Deep Vein Thrombosis (DVT), Eye Disorder, Fibromyalgia, Hyperlipidemia, Hypertension, Rheumatoid Arthritis (RA) Additional Past Medical History / Comment(s): Cataracts History of Any Multi-Drug Resistant Organisms: None Reported Past Surgical History: Appendectomy, Cholecystectomy, Heart Catheterization With Stent, Hernia Repair, Hysterectomy, Tonsillectomy Additional Past Surgical History / Comment(s): 5 heart stents. Cataracts in both eyes. Past Anesthesia/Blood Transfusion Reactions: No Reported Reaction Date of Last Stent Placement:: 2011 Past Psychological History: Depression Smoking Status: Former smoker Past Alcohol Use History: None Reported Past Drug Use History: None Reported - Past Family History Father Additional Family Medical History / Comment(s): pt stated had heart issues, but not sure what Mother Additional Family Medical History / Comment(s): leaking valve General Exam Limitations: no limitations General appearance: alert, in no apparent distress Head exam: Present: atraumatic Eye exam: Present: normal appearance, PERRL ENT exam: Present: normal oropharynx Neck exam: Present: normal inspection Respiratory exam: Present: rales (Left lung base) Cardiovascular Exam: Present: tachycardia GI/Abdominal exam: Present: soft. Absent: tenderness Extremities exam: Present: normal inspection. Absent: pedal edema, calf tenderness Back exam: Present: normal inspection. Absent: tenderness Neurological exam: Present: alert Psychiatric exam: Present: normal affect, normal mood Skin exam: Present: normal color Course Vital Signs 01/03/18 01/03/18 10:21 11:17 Temperature 99.6 F Pulse Rate 109 H 105 H Respiratory 28 H Rate Blood Pressure 132/62 O2 Sat by Pulse 93 L Oximetry - Reevaluation(s) Reevaluation #1: 01/03/18 13:02 Patient does meet sepsis criteria diagnosed at 1302. IV antibiotics will be ordered. Blood culture and lactic acid were already ordered. EKG Findings - EKG Comments: EKG Findings:: Sinus tachycardia 106. IN 194. QRS 100. QT 352. QTC 467. Normal axis. Inferior Q waves. There is some ST depression in leads aVL and V2 as well as leads V5 and V6. Medical Decision Making - Medical Decision Making Patient reevaluated and somewhat improved. Patient and family updated on results and plan. Patient did have recent stress test . patient does have EKG changes and somewhat elevated troponin. Patient will be placed on heparin. Patient will also be covered with antibiotics for pneumonia as well as treatment for congestive heart failure. Case was discussed in detail with Dr. Trina phelps, who will admit this patient. Cardiology will be placed on consult. - Lab Data Result diagrams: 01/03/18 10:31 01/03/18 10:31 Lab Results 01/03/18 01/03/18 01/03/18 Range/Units 10:31 10:31 10:31 WBC 9.4 (3.8-10.6) k/uL RBC 3.35 L (3.80-5.40) m/uL Hgb 9.9 L D (11.4-16.0) gm/dL Hct 31.1 L (34.0-46.0) % MCV 93.0 (80.0-100.0) fL MCH 29.7 (25.0-35.0) pg MCHC 31.9 (31.0-37.0) g/dL RDW 17.4 H (11.5-15.5) % Plt Count 249 (150-450) k/uL Neutrophils % 93 % Lymphocytes % 4 % Monocytes % 2 % Eosinophils % 0 % Basophils % 0 % Neutrophils # 8.7 H (1.3-7.7) k/uL Lymphocytes # 0.4 L (1.0-4.8) k/uL Monocytes # 0.2 (0-1.0) k/uL Eosinophils # 0.0 (0-0.7) k/uL Basophils # 0.0 (0-0.2) k/uL Hypochromasia Slight Anisocytosis Slight PT (9.0-12.0) sec INR (<1.2) APTT (22.0-30.0) sec D-Dimer (<0.60) mg/L FEU Sodium 137 (137-145) mmol/L Potassium 4.4 (3.5-5.1) mmol/L Chloride 105 (98-107) mmol/L Carbon Dioxide 18 L (22-30) mmol/L Anion Gap 14 mmol/L BUN 17 (7-17) mg/dL Creatinine 0.75 (0.52-1.04) mg/dL Est GFR (CKD-EPI)AfAm 90 (>60 ml/min/1.73 sqM) Est GFR (CKD-EPI)NonAf 78 (>60 ml/min/1.73 sqM) Glucose 153 H (74-99) mg/dL Calcium 8.4 (8.4-10.2) mg/dL Magnesium 1.7 (1.6-2.3) mg/dL Total Bilirubin 0.7 (0.2-1.3) mg/dL AST 18 (14-36) U/L ALT 28 (9-52) U/L Alkaline Phosphatase 64 (38-126) U/L Total Creatine Kinase 77 (30-135) U/L CK-MB (CK-2) 1.3 (0.0-2.4) ng/mL CK-MB (CK-2) Rel Index 1.7 Troponin I 0.179 H* (0.000-0.034) ng/mL NT-Pro-B Natriuret Pep pg/mL Total Protein 6.0 L (6.3-8.2) g/dL Albumin 3.6 (3.5-5.0) g/dL 01/03/18 01/03/18 Range/Units 10:31 10:31 WBC (3.8-10.6) k/uL RBC (3.80-5.40) m/uL Hgb (11.4-16.0) gm/dL Hct (34.0-46.0) % MCV (80.0-100.0) fL MCH (25.0-35.0) pg MCHC (31.0-37.0) g/dL RDW (11.5-15.5) % Plt Count (150-450) k/uL Neutrophils % % Lymphocytes % % Monocytes % % Eosinophils % % Basophils % % Neutrophils # (1.3-7.7) k/uL Lymphocytes # (1.0-4.8) k/uL Monocytes # (0-1.0) k/uL Eosinophils # (0-0.7) k/uL Basophils # (0-0.2) k/uL Hypochromasia Anisocytosis PT 10.2 (9.0-12.0) sec INR 1.0 (<1.2) APTT 20.2 L (22.0-30.0) sec D-Dimer 9.53 H (<0.60) mg/L FEU Sodium (137-145) mmol/L Potassium (3.5-5.1) mmol/L Chloride (98-107) mmol/L Carbon Dioxide (22-30) mmol/L Anion Gap mmol/L BUN (7-17) mg/dL Creatinine (0.52-1.04) mg/dL Est GFR (CKD-EPI)AfAm (>60 ml/min/1.73 sqM) Est GFR (CKD-EPI)NonAf (>60 ml/min/1.73 sqM) Glucose (74-99) mg/dL Calcium (8.4-10.2) mg/dL Magnesium (1.6-2.3) mg/dL Total Bilirubin (0.2-1.3) mg/dL AST (14-36) U/L ALT (9-52) U/L Alkaline Phosphatase (38-126) U/L Total Creatine Kinase (30-135) U/L CK-MB (CK-2) (0.0-2.4) ng/mL CK-MB (CK-2) Rel Index Troponin I (0.000-0.034) ng/mL NT-Pro-B Natriuret Pep 6180 pg/mL Total Protein (6.3-8.2) g/dL Albumin (3.5-5.0) g/dL - Radiology Data Radiology results: report reviewed (Computed tomography scan of the chest shows no pulmonary embolism. Findings favor in multifocal left pneumonia superimposed on congestive heart failure.), image reviewed (Chest x-ray shows congestive heart failure.) Critical Care Time Critical Care Time: Yes Total Critical Care Time: 32 Disposition Clinical Impression: Congestive heart failure, Pneumonia, NSTEMI (non-ST elevated myocardial infarction) Disposition: ADMITTED IP TO THIS HOSP Condition: Serious Referrals: Cornelio Garcia MD [Primary Care Provider] - 1-2 days Decision Time: 13:04
[2018-01-03 11:10] LABS: Albumin 3.6 g/dL (3.5-5.0); Anisocytosis Slight; Basophils % (A) 0 %; Calcium 8.4 mg/dL (8.4-10.2); Eosinophils % (A) 0 %; HCT 31.1 % (34.0-46.0); Hypochromasia Slight; Lymphocytes # (A) 0.4 k/uL (1.0-4.8); Lymphocytes % (A) 4 %; MCH 29.7 pg (25.0-35.0); MCHC 31.9 g/dL (31.0-37.0); Magnesium 1.7 mg/dL (1.6-2.3); Mean Platelet Volume 7.2; Monocytes # (A) 0.2 k/uL (0-1.0); Monocytes % (A) 2 %; Neutrophils # (A) 8.7 k/uL (1.3-7.7); Neutrophils % (A) 93 %; Platelet Count 249 k/uL (150-450); Potassium 4.4 mmol/L (3.5-5.1); RBC 3.35 m/uL (3.80-5.40); RDW 17.4 % (11.5-15.5); Total Bilirubin 0.7 mg/dL (0.2-1.3); WBC 9.4 k/uL (3.8-10.6)
[2018-01-03 11:11] LABS: HGB 9.9 gm/dL (11.4-16.0)
[2018-01-03 11:25] LABS: Prothrombin Time 10.2 sec (9.0-12.0)
[2018-01-03 11:28] LABS: D-Dimer 9.53 mg/L FEU (<0.60); Partial Thromboplastin Time 20.2 sec (22.0-30.0)
[2018-01-03 11:35] LABS: Creatine Kinase MB 1.3 ng/mL (0.0-2.4)
[2018-01-03 11:43] LABS: Troponin I 0.179 ng/mL (0.000-0.034)
--- NOTE | 2018-01-03 11:43 | XR ---
EXAMINATION TYPE: XR chest 2V DATE OF EXAM: 01/03/2018 COMPARISON: Chest x-ray December 01, 2012 HISTORY: Difficulty breathing and chest pain. TECHNIQUE: Frontal and lateral views of the chest are obtained. FINDINGS: Anterior fusion plate lower cervical spine is redemonstrated. There is new cardiomegaly wi th small bilateral pleural effusions seen best on lateral chest x-ray and moderate central congestion as well as alveolar edema bilaterally. No pneumothorax is seen. IMPRESSION: Suspect CHF exacerbation as there is new cardiomegaly with small bilateral pleural effus ions and moderate central vascular congestion as well as central alveolar edema all identified on cur rent study.
[2018-01-03] MEDS ORDERED: HYDROcodone/APAP 5-325MG 1 EACH TAB PO STA (12:16)
--- NOTE | 2018-01-03 12:21 | CT ---
EXAMINATION TYPE: CT angio chest DATE OF EXAM: 01/03/2018 COMPARISON: Chest radiograph of the same date HISTORY: SOB, chest pain, back pain CT DLP: 575 mGycm. Automated Exposure Control for Dose Reduction was Utilized. CONTRAST: CTA scan of the thorax is performed with IV Contrast, patient injected with 100 mL of Isovue 370, pul monary embolism protocol. MIP Images are created on CT scanner and reviewed. FINDINGS: LUNGS: There is a moderate right and small left pleural effusion with associated bibasilar compressiv e atelectasis. In addition to interstitial prominence/interlobular septal thickening, multifocal grou ndglass opacities, and pulmonary vascular engorgement there are left upper lobe and lingular as well as to a lesser degree left lower lobe opacities which demonstrate areas of decreased enhancement comp atible with multifocal pneumonia. There is no pleural effusion or pneumothorax seen. The tracheobron chial tree is patent. MEDIASTINUM: There is satisfactory enhancement of the pulmonary artery and its branches, there is no CT evidence for pulmonary embolism. Mediastinal adenopathy is seen with the largest nodes in the subc arinal space measuring 1.3 cm in short axis and the right perihilar space measuring 1.2 cm in short a xis. No cardiomegaly or pericardial effusion is seen. Coronary artery stent is noted. Moderate athe rosclerosis is noted of the thoracic aorta and upper abdominal aorta. OTHER: There is a moderate hiatal hernia present. There is diffuse pancreatic parenchymal atrophy. Ch olecystectomy clips are within the gallbladder fossa. Mild to moderate multilevel degenerative change of the thoracic spine are noted. IMPRESSION: 1. No evidence of pulmonary embolism. 2. Findings favoring multifocal left-sided pneumonia superimposed upon sequela of congestive heart fa ilure. 3. Moderate hiatal hernia. 4. Mediastinal adenopathy, likely reactive to impression #2.
[2018-01-03] MEDS ORDERED: HEPARIN SODIUM,PORCINE 5,000 UNIT/ML 1 ML VIAL IV ONE (13:04)
[2018-01-03] MEDS ORDERED: NITROGLYCERIN SL TABS 0.4 MG TAB SUBLINGUAL PRN (13:04)
[2018-01-03] MEDS ORDERED: HEPARIN SODIUM,PORCINE 5,000 UNIT/ML 1 ML VIAL IV PRN (13:04)
[2018-01-03] MEDS ORDERED: PNEUMONIA PROTOCOL UTILIZED 1 EACH MISC PO PRN (13:04)
[2018-01-03] MEDS ORDERED: AZITHROMYCIN 500 MG in SODIUM CHLORIDE 0.9% 250 ML IVPB STA (13:09)
[2018-01-03] MEDS ORDERED: cefTRIAXone IN SWFI 1,000 MG/10 ML SYRINGE IVP STA (13:10)
--- NOTE | 2018-01-03 13:49 | XR ---
EXAMINATION TYPE: XR KUB DATE OF EXAM: 01/03/2018 1:41 PM CLINICAL HISTORY: Abdominal tenderness upon palpitation TECHNIQUE: Two supine KUB images of the abdomen are obtained. COMPARISON: Abdominal x-ray series October 09, 2012. FINDINGS: Scattered gas is seen in non-distended small bowel loops. Slightly prominent gas-filled sma ll bowel loops in the left abdomen are present. Gas and fecal material is seen in non-distended colon . Contrast from recent CT chest is seen in collecting systems and bladder. Overlying EKG wires are se en. Cholecystectomy clips are redemonstrated. There are coils over the lower abdomen from prior herni a repair surgery. IMPRESSION: Overall nonspecific but likely nonobstructive bowel gas pattern.
[2018-01-03] MEDS: FUROSEMIDE 10 MG/ML 4 ML VIAL IV SCH ×2 (14:23→20:41)
[2018-01-03] MEDS: HEPARIN SODIUM,PORCINE/D5W PMX 25,000 UNIT in DEXTROSE/WATER 1 500ML.BAG IV SCH (14:26)
[2018-01-03 16:27] LABS: Troponin I 0.575 ng/mL (0.000-0.034)
[2018-01-03] MEDS: GABAPENTIN 300 MG CAP PO SCH ×2 (17:34→20:41)
--- NOTE | 2018-01-03 18:08 | P.HPIM ---
History of Present Illness H&P Date: 01/03/18 (nstemi,chf,) Chief Complaint: sob,chest discomf dictated#[id number] date 01/03/2018 Past Medical History Past Medical History: Coronary Artery Disease (CAD), Chest Pain / Angina, CVA/ TIA, Diabetes Mellitus, Deep Vein Thrombosis (DVT), Eye Disorder, Fibromyalgia, Hyperlipidemia, Hypertension, Myocardial Infarction ([place]), Osteoarthritis (OA), Rheumatoid Arthritis (RA) Additional Past Medical History / Comment(s): "Leaky" heart valve, NIDDM type II , neuropathy R hand and feet, DVT R calf, chronic pain, chronic back pain, DDD, anemia, hiatal hernia, hemorrhoids, IBS, diverticulosis, constipation, sinus problems, falls, skin cancer with removal, shingelle "break outs"- last time a few months ago. Last Myocardial Infarction Date:: 2011 History of Any Multi-Drug Resistant Organisms: None Reported Past Surgical History: Appendectomy, Cholecystectomy, Heart Catheterization, Heart Catheterization With Stent, Hernia Repair, Hysterectomy, Tonsillectomy Additional Past Surgical History / Comment(s): PCI with multiple stents, ventral hernia repair, colonoscopy, bilateral cataract removals, skin cancer removals. Past Anesthesia/Blood Transfusion Reactions: No Reported Reaction Date of Last Stent Placement:: 2011 Past Psychological History: Depression Additional Psychological History / Comment(s): Pt states she has had depression for many years and sees Dr. Will. She states her depression is stable at this time and she is not suicidal, nor would she ever really commit suicide, although in the past she has thought of it. Pt resides with her spouse. She uses a cane or walker to ambulate. Due to health reasons she has not driven in about 2 months, her spouse drives. She has no home care. Smoking Status: Former smoker Past Alcohol Use History: None Reported Additional Past Alcohol Use History / Comment(s): Pt started smoking in 1961 and quit in 1980. Past Drug Use History: None Reported - Past Family History Father Additional Family Medical History / Comment(s): pt stated had heart issues, but not sure what Mother Additional Family Medical History / Comment(s): leaking valve Medications and Allergies Home Medications Medication Instructions Recorded Confirmed Type Aspirin EC [Ecotrin Low Dose] 81 mg PO DAILY 04/29/14 01/03/18 History Atenolol 100 mg PO HS 04/29/14 01/03/18 History Atorvastatin [Lipitor] 80 mg PO HS 04/29/14 01/03/18 History Cevimeline [Evoxac] 30 mg PO BID 04/29/14 01/03/18 History Gabapentin [Neurontin] 600 mg PO TID 04/29/14 01/03/18 History HYDROcodone/APAP 10-325MG [[place] 1 tab PO TID PRN 04/29/14 01/03/18 History 10-325] metFORMIN HCL [Glucophage] 500 mg PO AC-BID 04/29/14 01/03/18 History DULoxetine HCL [Cymbalta] 90 mg PO DAILY 12/01/17 01/03/18 History Loratadine [Claritin] 10 mg PO DAILY 12/01/17 01/03/18 History Memantine [Namenda] 10 mg PO BID 12/01/17 01/03/18 History Methotrexate Sodium [Methotrexate] 25 mg PO Q7D 12/01/17 01/03/18 History Omeprazole [PriLOSEC] 20 mg PO DAILY 12/01/17 01/03/18 History Terazosin [Hytrin] 1 mg PO HS 12/01/17 01/03/18 History Tofacitinib Citrate [Xeljanz] 5 mg PO BID 12/01/17 01/03/18 History buPROPion HCL [Wellbutrin XL] 300 mg PO DAILY 12/01/17 01/03/18 History metFORMIN HCL [Glucophage] 1,000 mg PO AC-SUPPER 12/01/17 01/03/18 History valACYclovir [Valtrex] 500 mg PO DAILY 12/01/17 01/03/18 History Allergies Allergy/AdvReac Type Severity Reaction Status Date / Time etanercept [From Enbrel] Allergy Rash/Hives Verified 01/03/18 10:36 latex Allergy Itching Verified 01/03/18 10:36 Sulfa (Sulfonamide Allergy Rash/Hives Verified 01/03/18 10:36 Antibiotics) tape Allergy Rash/Hives Uncoded 12/01/17 13:57 Physical Exam Vitals: Vital Signs Temp Pulse Resp BP Pulse Ox 01/03/18 14:43 100.3 F H 102 H 20 105/58 96 01/03/18 13:14 103 H 22 122/53 95 01/03/18 13:04 100 01/03/18 11:17 105 H 01/03/18 10:21 99.6 F 109 H 28 H 132/62 93 L Intake and Output 01/03/18 01/03/18 01/03/18 06:59 14:59 22:59 Intake Total 143.5 Balance 143.5 Intake: Intake, IV Titration 143.5 Amount Azithromycin 500 mg In 125 Sodium Chloride 0.9% 250 ml @ 125 mls/hr IVPB ONCE STA Rx#:[id number] Heparin Sodium,Porcine/ 18.5 D5w Pmx 25,000 unit In Dextrose/Water 1 500ml. bag @ 12 UNITS/KG/HR 18.5 mls/hr IV .Q24H [facility] Rx#: [id number] Other: # Voids 1 Weight 77.111 kg Results CBC & Chem 7: 01/03/18 10:31 01/03/18 10:31 Labs: Abnormal Lab Results - Last 24 Hours (Table) 01/03/18 01/03/18 01/03/18 Range/Units 10:31 10:31 10:31 RBC 3.35 L (3.80-5.40) m/uL Hgb 9.9 L D (11.4-16.0) gm/dL Hct 31.1 L (34.0-46.0) % RDW 17.4 H (11.5-15.5) % Neutrophils # 8.7 H (1.3-7.7) k/uL Lymphocytes # 0.4 L (1.0-4.8) k/uL APTT (22.0-30.0) sec D-Dimer (<0.60) mg/L FEU Carbon Dioxide 18 L (22-30) mmol/L Glucose 153 H (74-99) mg/dL CK-MB (CK-2) (0.0-2.4) ng/mL Troponin I 0.179 H* (0.000-0.034) ng/mL Total Protein 6.0 L (6.3-8.2) g/dL 01/03/18 01/03/18 Range/Units 10:31 15:23 RBC (3.80-5.40) m/uL Hgb (11.4-16.0) gm/dL Hct (34.0-46.0) % RDW (11.5-15.5) % Neutrophils # (1.3-7.7) k/uL Lymphocytes # (1.0-4.8) k/uL APTT 20.2 L (22.0-30.0) sec D-Dimer 9.53 H (<0.60) mg/L FEU Carbon Dioxide (22-30) mmol/L Glucose (74-99) mg/dL CK-MB (CK-2) 3.0 H* (0.0-2.4) ng/mL Troponin I 0.575 H* (0.000-0.034) ng/mL Total Protein (6.3-8.2) g/dL Thrombosis Risk Factor Assmnt - Choose All That Apply Any of the Below Risk Factors Present?: Yes Each Factor Represents 1 point: Acute [place], Heart failure (<1month), Obesity (BMI >25), Serious lung disease incl. pneumonia (< 1month) Other Risk Factors: Yes Each Risk Factor Represents 2 Points: Malignancy Each Risk Factor Represents 3 Points: Age 75 years or older, History of DVT/PE Other congenital or acquired thrombophilia - If yes, enter type in comment: No Thrombosis Risk Factor Assessment Total Risk Factor Score: 12 Thrombosis Risk Factor Assessment Level: High Risk
[2018-01-03] MEDS: NITROGLYCERIN OINT 1 INCH/GM PACKET TOPICAL SCH ×2 (18:35→23:26)
[2018-01-03] MEDS: HYDROcodone/APAP 10-325MG 1 EACH TAB PO PRN (18:38)
--- NOTE | 2018-01-03 19:13 | P.CNPUL ---
History of Present Illness Consult date: 01/03/18 Reason for consult: dyspnea, cough, hypoxemia, pulmonary fibrosis Chief complaint: Shortness of breath and dry nonproductive cough History of present illness: 77-year-old female who was seen eval reexamined as per request of Dr. Garcia, patient is a nonsmoker but does have a history of complex and multiple medical problems and issues she is been complaining of increasing shortness of breath especially on exertion for last 1-1/2 month and last few weeks it got to a point that with activity and exertion she had to sit due to severe degree of dyspnea, patient was seen in the emergency department about a week ago was discharged now came back again and presented this time and emergency department earlier this morning with problems associated with bilateral chest discomfort more so on the left side feeling of generalized aches pains fatigue and some chest and back discomfort as well, patient has been admitted into the hospital a computed tomography scan of the chest was performed which I have reviewed Her history is significant for advanced rheumatoid arthritis for which she is on methotrexate once a week and Xeljanz 5 mg 2 times a day, her last use of oral prednisone was somewhere about a month to 2 months ago, her history is significant for coronary artery disease and angina history of TIAs type 2 diabetes mellitus deep venous thrombosis chronic fibromyalgia dyslipidemia hypertension hypertensive cardiovascular disease Review of Systems All systems: negative Constitutional: Reports anorexia, Reports chills, Reports fatigue, Reports lethargy, Reports malaise, Reports sweats, Reports weakness Eyes: denies as per HPI Ears: deny: decreased hearing Ears, nose, mouth and throat: Reports as per HPI Cardiovascular: Reports as per HPI, Reports chest pain, Reports lightheadedness , Reports palpitations, Reports shortness of breath Respiratory: Reports as per HPI, Reports congestion, Reports cough, Reports dyspnea Gastrointestinal: Reports as per HPI, Reports bloating, Reports constipation, Reports dyspepsia, Reports early satiety Genitourinary: Reports as per HPI Menstruation: Reports as per HPI Musculoskeletal: Reports as per HPI, Reports leg numbness/tingling, Reports myalgias Integumentary: Reports as per HPI Neurological: Reports as per HPI Psychiatric: Reports as per HPI Endocrine: Reports as per HPI Hematologic/Lymphatic: Reports as per HPI Allergic/Immunologic: Reports as per HPI Past Medical History Past Medical History: Coronary Artery Disease (CAD), Chest Pain / Angina, CVA/ TIA, Diabetes Mellitus, Deep Vein Thrombosis (DVT), Eye Disorder, Fibromyalgia, Hyperlipidemia, Hypertension, Myocardial Infarction ([place]), Osteoarthritis (OA), Rheumatoid Arthritis (RA) Additional Past Medical History / Comment(s): "Leaky" heart valve, NIDDM type II , neuropathy R hand and feet, DVT R calf, chronic pain, chronic back pain, DDD, anemia, hiatal hernia, hemorrhoids, IBS, diverticulosis, constipation, sinus problems, falls, skin cancer with removal, shingelle "break outs"- last time a few months ago. Last Myocardial Infarction Date:: 2011 History of Any Multi-Drug Resistant Organisms: None Reported Past Surgical History: Appendectomy, Cholecystectomy, Heart Catheterization, Heart Catheterization With Stent, Hernia Repair, Hysterectomy, Tonsillectomy Additional Past Surgical History / Comment(s): PCI with multiple stents, ventral hernia repair, colonoscopy, bilateral cataract removals, skin cancer removals. Past Anesthesia/Blood Transfusion Reactions: No Reported Reaction Date of Last Stent Placement:: 2011 Past Psychological History: Depression Additional Psychological History / Comment(s): Pt states she has had depression for many years and sees Dr. Will. She states her depression is stable at this time and she is not suicidal, nor would she ever really commit suicide, although in the past she has thought of it. Pt resides with her spouse. She uses a cane or walker to ambulate. Due to health reasons she has not driven in about 2 months, her spouse drives. She has no home care. Smoking Status: Former smoker Past Alcohol Use History: None Reported Additional Past Alcohol Use History / Comment(s): Pt started smoking in 1960 and quit in 1980. Past Drug Use History: None Reported - Past Family History Father Additional Family Medical History / Comment(s): pt stated had heart issues, but not sure what Mother Additional Family Medical History / Comment(s): leaking valve Medications and Allergies Home Medications Medication Instructions Recorded Confirmed Type Aspirin EC [Ecotrin Low Dose] 81 mg PO DAILY 04/29/14 01/03/18 History Atenolol 100 mg PO HS 04/29/14 01/03/18 History Atorvastatin [Lipitor] 80 mg PO HS 04/29/14 01/03/18 History Cevimeline [Evoxac] 30 mg PO BID 04/29/14 01/03/18 History Gabapentin [Neurontin] 600 mg PO TID 04/29/14 01/03/18 History HYDROcodone/APAP 10-325MG [[place] 1 tab PO TID PRN 04/29/14 01/03/18 History 10-325] metFORMIN HCL [Glucophage] 500 mg PO AC-BID 04/29/14 01/03/18 History DULoxetine HCL [Cymbalta] 90 mg PO DAILY 12/01/17 01/03/18 History Loratadine [Claritin] 10 mg PO DAILY 12/01/17 01/03/18 History Memantine [Namenda] 10 mg PO BID 12/01/17 01/03/18 History Methotrexate Sodium [Methotrexate] 25 mg PO Q7D 12/01/17 01/03/18 History Omeprazole [PriLOSEC] 20 mg PO DAILY 12/01/17 01/03/18 History Terazosin [Hytrin] 1 mg PO HS 12/01/17 01/03/18 History Tofacitinib Citrate [Xeljanz] 5 mg PO BID 12/01/17 01/03/18 History buPROPion HCL [Wellbutrin XL] 300 mg PO DAILY 12/01/17 01/03/18 History metFORMIN HCL [Glucophage] 1,000 mg PO AC-SUPPER 12/01/17 01/03/18 History valACYclovir [Valtrex] 500 mg PO DAILY 12/01/17 01/03/18 History Allergies Allergy/AdvReac Type Severity Reaction Status Date / Time etanercept [From Enbrel] Allergy Rash/Hives Verified 01/03/18 10:36 latex Allergy Itching Verified 01/03/18 10:36 Sulfa (Sulfonamide Allergy Rash/Hives Verified 01/03/18 10:36 Antibiotics) tape Allergy Rash/Hives Uncoded 12/01/17 13:57 Physical Exam Vitals: Vital Signs Temp Pulse Resp BP Pulse Ox 01/03/18 14:43 100.3 F H 102 H 20 105/58 96 01/03/18 13:14 103 H 22 122/53 95 01/03/18 13:04 100 01/03/18 11:17 105 H 01/03/18 10:21 99.6 F 109 H 28 H 132/62 93 L Intake and Output 01/03/18 01/03/18 01/03/18 06:59 14:59 22:59 Intake Total 143.5 Balance 143.5 Intake: Intake, IV Titration 143.5 Amount Azithromycin 500 mg In 125 Sodium Chloride 0.9% 250 ml @ 125 mls/hr IVPB ONCE STA Rx#:[id number] Heparin Sodium,Porcine/ 18.5 D5w Pmx 25,000 unit In Dextrose/Water 1 500ml. bag @ 12 UNITS/KG/HR 18.5 mls/hr IV .Q24H [facility] Rx#: [id number] Other: # Voids 1 Weight 77.111 kg General appearance: alert, in no apparent distress Head exam: Present: atraumatic Eye exam: Present: normal appearance, PERRL ENT exam: Present: normal oropharynx Neck exam: Present: normal inspection Respiratory exam: Present: rales (Left lung base) with fine expiratory rhonchi basal crackles are present the last to percussion and decrease in air entry at the bases noted bilaterally Cardiovascular Exam: Present: tachycardia GI/Abdominal exam: Present: soft. Absent: tenderness Extremities exam: Present: normal inspection. Absent: pedal edema, calf tenderness, examination the hand revealed finding consistent with advanced rheumatoid arthritis Back exam: Present: normal inspection. Absent: tenderness Neurological exam: Present: alert Psychiatric exam: Present: normal affect, normal mood Skin exam: Present: normal color Results - Laboratory Findings CBC and BMP: 01/03/18 10:31 01/03/18 10:31 PT/INR, D-dimer PT 10.2 sec (9.0-12.0) 01/03/18 10:31 INR 1.0 (<1.2) 01/03/18 10:31 D-Dimer 9.53 mg/L FEU (<0.60) H 01/03/18 10:31 Abnormal lab findings: Abnormal Labs 01/03/18 01/03/18 01/03/18 10:31 10:31 10:31 RBC 3.35 L Hgb 9.9 L D Hct 31.1 L RDW 17.4 H Neutrophils # 8.7 H Lymphocytes # 0.4 L APTT D-Dimer Carbon Dioxide 18 L Glucose 153 H CK-MB (CK-2) Troponin I 0.179 H* Total Protein 6.0 L 01/03/18 01/03/18 10:31 15:23 RBC Hgb Hct RDW Neutrophils # Lymphocytes # APTT 20.2 L D-Dimer 9.53 H Carbon Dioxide Glucose CK-MB (CK-2) 3.0 H* Troponin I 0.575 H* Total Protein - Diagnostic Findings Chest x-ray: report reviewed, image reviewed CT scan - chest: report reviewed, image reviewed (Chest x-ray revealed cardiomegaly interstitial edema small bilateral pleural effusion findings are very much suggestive of congestive heart failure, computed tomography scan of the chest reviewed there is bilateral pleural effusion more so on the right side compared to left side dense infiltrate along with air bronchograms seen in the left upper lobe some patchy groundglass attenuation noted in the left lower lobe as well, basal bronchiectasis noted some evidence of pulmonary hypertension noted as well small mediastinal lymph node about 1.2-1.3 cm noted, his findings are very much suggestive of the multi lobar pneumonia however associated congestive heart failure cannot be excluded noninfectious etiologies like bronchiolitis obliterans occlusive pneumonia however cannot be excluded, mediastinal lymphadenopathy appears to be reactive patient may very well be an heart failure related to multifactorial process and echocardiogram would be helpful) Assessment and Plan Assessment: Acute hypoxic respiratory failure related to multi lobar pneumonia Bilateral pleural effusion likely related to acute heart failure Acute heart failure suspect acute on chronic systolic and/or diastolic heart failure Noninfectious complication like bronchiolitis obliterans occlusive pneumonia related to advanced rheumatoid arthritis cannot be excluded Suspect presence of pulmonary hypertension Rheumatoid lung and interstitial lung disease related to advanced rheumatoid arthritis cannot be excluded however patient needs to be evaluated once pneumonia clears up with a high resolution computed tomography scan which will be arranged on outpatient setting Plan: Agree with workup of heart failure with echocardiogram and cardiovascular evaluation Would initiate patient on IV steroids with Solu-Medrol along with broad- spectrum antibiotics with vancomycin and Zosyn Sputum for Gram stain and culture Bilateral ultrasound of the chest if significant effusion is seen patient could benefit from thoracentesis Further evaluation of rheumatoid lung once pneumonia clears up Follow clinical course closely patient could benefit from bronchoscopy and transbronchial lung biopsy once more stable and if infiltrate do not clear Further recommendations pending plan of care as per clinical response of the patient Time with Patient: Greater than 30
[2018-01-03] MEDS ORDERED: VANCOMYCIN IV PER PHARMACY 1 EACH MISC MISCELLANE PRN (19:15)
[2018-01-03] MEDS ORDERED: VANCOMYCIN 1,500 MG in SODIUM CHLORIDE 0.9% 250 ML IVPB ONE (19:30)
--- NOTE | 2018-01-03 20:30 | HP ---
HISTORY AND PHYSICAL DATE OF ADMISSION: 01/03/18. She is a 77-year-old, white female, , . PATIENT CHIEF COMPLAINT: The patient presented to the emergency room by EMS with the complaint of shortness of breath and chest discomfort with minimal exertion. She stated that her symptoms started 2 days ago. However, she has been fatigued and tired for 1 week duration. As she presented to the emergency room with the chest discomfort and last night she has been coughing and short of breath with minimal exertion as mentioned above and have minimal chest discomfort and mainly in the back. The patient does have a history of heart attack in the past and she had a stent was placed by Cardiology. Her current list of medications. Home medication: 1. Aspirin enteric-coated 81 mg daily. 2. Atenolol 100 mg at q.h.s.. 3. Atorvastatin, Lipitor 80 mg at q.h.s. 4. Evoxac "Cevimeline" 30 mg and twice a day. 5. She is also on gabapentin by Dr. Lemons 600 mg t.i.d. 6. She has been on hydrocodone APAP, [place] 10/[address] Lemons. 7. She had Metformin 500 mg twice a day a.c. meals. 8. Duloxetine, Cymbalta 90 mg p.o. daily. 9. Hydrocodone has been prescribed by the [facility] Dr. Lemons. 10.She is on loratadine, Claritin 10 mg daily. 11.She is also on Namenda 10 mg twice a day. 12.She has been on methotrexate 25 mg once a week per week every 7 days. 13.Omeprazole 20 mg daily. 14.Terazosin 1 mg at q.h.s. 15.She is on Xeljanz. The other name for it is tofacitinib. 16.The patient also on Wellbutrin XL 300 mg once a day. 17.Metformin and Glucophage 1000 AC supper. 18.Valtrex 500 mg daily for underlying herpes simplex protection. ALLERGY: SHE IS ALLERGIC TO ENBREL, LATEX, SULFONAMIDE, AND SULFA DRUGS AND TAPE. PAST MEDICAL HISTORY: 1. She had history of rheumatoid arthritis, has been treated by Dr. Alfonso. 2. History of osteoarthritis as well. 3. Depression. 4. Immune compromised. 5. Currently presented with cough and shortness of breath. REVIEW OF SYMPTOMS: Reviewing of the system shows: GENERAL: She was short of breath as well as underlying some chest discomfort and coughing, fatigue. HEENT: Head is no headache or blurred vision. She has mild temperature at least she is feeling that as she admitted to the hospital. In the hospital, her temperature 100.3, but she denied the temperature or she did not measure it at home. GASTROINTESTINAL: On the GI, she denied any diarrhea or hematochezia or hematemesis or melena. GENITOURINARY: No dysuria. MUSCULOSKELETAL: She has significant weakness associated with the osteoarthritis, back pain, and rheumatoid arthritis. EYES: No injection and no scratching. Ear was no hearing well and no pain. RESPIRATORY as mentioned above and dyspnea and mild chest pain. PAST MEDICAL HISTORY: She had a coronary artery disease, history of angina. She has a history of diabetes mellitus, DVT, eye disorder, fibromyalgia, hyperlipidemia, hypertension, and rheumatoid arthritis. PAST SURGICAL HISTORY: Cataract extraction bilateral, she had surgical history of appendectomy and cholecystectomy, heart catheterization with stent, and hernia repair and hysterectomy and tonsillectomy. SOCIAL HISTORY: She is a former smoker. Alcohol history negative. Drug history negative. Her last stent placement in 2011. She has a history of a 5 heart stents. The patient was conscious, alert and oriented x3. Seen in the emergency room at module 23. She has at that time as well abdominal pain in the mid upper quadrant and did complain of constipation chronically secondary to the pain killers. We did a flat abdomen and found probably tension and she has also a chest x-ray and found that she had anterior fusion of the lower cervical spine and she has cardiomegaly they said new and small bilateral pleural effusion and mild central congestion and alveolar edema bilaterally. No pneumothorax with the conclusion of suspicious congestive heart failure exacerbation with new cardiomegaly and small bilateral pleural effusion and moderate central vascular congestion with the central alveolar edema. She had subsequently had a CT scan of the chest and the impression was to rule out with the presence of elevated D-dimer and found that she had a moderate hiatal hernia and diffuse pancreatic parenchymal atrophy. Cholecystectomy within the gallbladder fossa. [id number] multiple degenerative changes of the thoracic spine. Conclusion there is multi focal left-sided pneumonia superimposed with congestive heart failure, moderate hiatal hernia, and mediastinal adenopathy is likely active secondary to the multifocal sided . LABORATORY DATA: As the patient had laboratory and the laboratory was indicating that her white count is 9.4 and hemoglobin was 9.9 with anemia and she is currently pale and her MCV 93. Her neutrophil for the differential is high 8.7. Her PTT is 20.2, INR is 1 and PT is 10.2. The D-dimer was 9.53, and for that reason, she had CT scan of the chest with contrast. Her chemistry profile indicating sodium 137, potassium 4.4, chloride 105 and carbon dioxide was 18 with the tendency to be in metabolic acidosis and for that purpose we held the metformin. Her anion gap was 14, BUN of 17 and creatinine of 0.75. Estimated glomerular filtration rate for non- was 78 and her blood sugar was 153. Calcium normal. Magnesium 1.7 and AST, ALT normal at 18 and 28, alkaline phosphatase 64. CPK is 77 and CK-MB 1.3 and index 1.7. However, the troponin is 0.179 and when is repeated her troponin went up to 0.575 and she had also the CK-MB was 3. The patient has also beta natriuretic peptide 6180. The total protein is 6 and albumin was 3.6. PHYSICAL EXAMINATION: GENERAL: With the underlying examination [id number]. The patient was conscious, alert, oriented. She still has significant distress and coughing. Not much phlegm and the x-ray also was indicating pneumonia bilateral. VITAL SIGNS: Her current vital signs indicating this temperature 100.3 and orally, and her pulse rate was ranging between 105-102 with the underlying tachycardia. Her blood pressure was ranging between 122/53 to 105/58 with the mean pressure is 73. Her saturation is 96 to 95% on room air. On the physical examination, the patient had as mention her HEENT: The head was normocephalic, atraumatic. Her pupil was equal, reactive and conjunctivae was pink. Sclerae was nonicteric. On the nose was negative. No rhinitis. In the ear, hearing was stable and she had oropharynx upper plate and lower partial. NECK was supple. No JVD. No thyromegaly. No lymphadenopathy. Trachea midline with a history of surgery for the anterior fusion of the cervical spine. LUNG: Was decreased air entry of both bilaterally bases with inspiratory rhonchi. CARDIOVASCULAR: She has tachycardia with a heart positive for a murmur on the apex as well as the base 2/6 with the underlying history of aortic stenosis as well as valvular heart disease. ABDOMEN: The abdomen was protuberant, tympanic on percussion and some tenderness on the left upper and mid quadrant. Initial temperature on presentation in the ER was 99, temperature 99.6 and a pulse rate 109, respiratory rate 28. NEUROLOGICAL examination grossly intact. No lateralizing sign and no facial asymmetry. PSYCHIATRIC: On the psychiatry, she has normal affect and normal mood. SKIN: Normal as well. ASSESSMENT: 1. With the underlying possibility of of sepsis associated with underlying pneumonia as we are multifocal left-sided and congestive heart failure and they order of the lactic acid and blood culture. The EKG was also sinus tachycardia. She has some abnormality with ST depression in the aVL lead. 2. With the underlying her laboratory indicating pneumonia. 3. With a high BNP, congestive heart failure could be possibly diastolic only with the cardiomegaly, however, will not be cleared until we have the echocardiogram results and cardiology consultation. The patient has non STEMI with progressing and elevation of the troponin [address]-segment depression. 4. Anemia of chronic disease as well with the normal MCV and hemoglobin is 9.9, hematocrit 31.1. 5. She has underlying immunocompromise with the history of rheumatoid arthritis and she was on two medications, methotrexate as well as the Xeljanz from Dr. Alfonso the educational therapist. 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 Cardiology consultation and also we consulted Dr. Ismael Valadez, pulmonary and Critical and with the underlying also elevated troponin and non-STEMI evaluation for the heart especially with a history of 5 stents as the patient mentioned. She has as well pallor and monitoring the kidney function as well with a BUN currently 17 and creatinine 0.75. The patient was started on antibiotic in the emergency room. We will continue the antibiotic as well and with the further recommendation as the consultation with the Cardiology and the Pulmonary for the patient to see and further treatment accordingly. MMODL / IJN: [id number] /
[2018-01-03] MEDS: ATORVASTATIN 80 MG TAB PO SCH (20:41)
[2018-01-03] MEDS: MEMANTINE 10 MG TAB PO SCH (20:41)
[2018-01-03] MEDS: CEVIMELINE 30 MG CAP PO SCH (20:41)
[2018-01-03] MEDS: methylPREDNISolone SOD SUCCI 40 MG/ML 1 ML VIAL IV SCH (20:42)
[2018-01-03] MEDS ORDERED: ATENOLOL 50 MG TAB PO SCH (21:00)
[2018-01-03] MEDS ORDERED: ACETAMINOPHEN TAB 325 MG TAB PO PRN (21:13)
[2018-01-03] MEDS: SENNOSIDES-DOCUSATE SODIUM 1 EACH TAB PO SCH (21:54)
--- NOTE | 2018-01-03 22:47 | US ---
EXAMINATION TYPE: US chest DATE OF EXAM: 01/03/2018 COMPARISON: NONE CLINICAL HISTORY: pleural effusion. Pleural effusion EXAM MEASUREMENTS: Right Pleural Effusion fluid pocket: 8.2 cm Right skin to fluid thickness: 2.9 cm Left Pleural Effusion fluid pocket: 7.2 cm Left skin to fluid thickness: 2.7 cm Pulmonologists are able to review the images in the patient?s EMR. Bilateral pleural effusion with lung tissue visualized on both sides. Did not claudette fluid pockets. IMPRESSIONS: Bilateral pleural effusions are demonstrated.
[2018-01-03 23:22] LABS: Creatine Kinase MB 7.2 ng/mL (0.0-2.4); Troponin I 2.16 ng/mL (0.000-0.034)
[2018-01-03] MEDS: PIPERACILLIN-TAZOBACTAM 3.375 GM in DEXTROSE/WATER 1 50ML.BAG IVPB SCH (23:25)
[2018-01-03] MEDS: MELATONIN 3 MG TABLET PO PRN (23:25)
[2018-01-04 03:51] LABS: Anisocytosis Slight; Basophils % (A) 0 %; Eosinophils % (A) 0 %; HCT 28.6 % (34.0-46.0); HGB 8.9 gm/dL (11.4-16.0); Hypochromasia Moderate; Lymphocytes # (A) 0.5 k/uL (1.0-4.8); Lymphocytes % (A) 5 %; MCH 29.9 pg (25.0-35.0); MCHC 31.2 g/dL (31.0-37.0); MCV 95.6 fL (80.0-100.0); Macrocytosis Slight; Mean Platelet Volume 7.1; Monocytes # (A) 0.2 k/uL (0-1.0); Monocytes % (A) 2 %; Neutrophils # (A) 8.9 k/uL (1.3-7.7); Neutrophils % (A) 92 %; Platelet Count 207 k/uL (150-450); RDW 18.2 % (11.5-15.5); WBC 9.7 k/uL (3.8-10.6)
[2018-01-04 04:01] LABS: Calcium 8.7 mg/dL (8.4-10.2); Potassium 4.8 mmol/L (3.5-5.1)
[2018-01-04] MEDS: NITROGLYCERIN OINT 1 INCH/GM PACKET TOPICAL SCH ×2 (05:50→11:40)
[2018-01-04] MEDS: PANTOPRAZOLE 40 MG TABLET PO SCH (05:50)
[2018-01-04] MEDS: VANCOMYCIN 1,250 MG in SODIUM CHLORIDE 0.9% 250 ML IVPB SCH ×2 (05:55→21:24)
[2018-01-04] MEDS: FUROSEMIDE 10 MG/ML 4 ML VIAL IV SCH ×3 (05:55→21:25)
[2018-01-04 06:01] LABS: Glucose,Whole Blood 251 mg/dL (75-99)
[2018-01-04] MEDS: INSULIN ASPART 100 UNIT/ML 1 ML 10 ML VIAL SQ SCH ×4 (06:12→21:24)
[2018-01-04] MEDS: PIPERACILLIN-TAZOBACTAM 3.375 GM in DEXTROSE/WATER 1 50ML.BAG IVPB SCH ×3 (08:05→23:18)
[2018-01-04] MEDS: AZITHROMYCIN 500 MG TAB PO SCH (08:06)
[2018-01-04] MEDS: DULoxetine HCL 30 MG CAPSULE.DR PO SCH (08:06)
[2018-01-04] MEDS: ASPIRIN 81 MG PO SCH (08:07)
[2018-01-04] MEDS: GABAPENTIN 300 MG CAP PO SCH ×3 (08:07→21:24)
[2018-01-04] MEDS: SENNOSIDES-DOCUSATE SODIUM 1 EACH TAB PO SCH ×2 (08:07→21:25)
[2018-01-04] MEDS: MEMANTINE 10 MG TAB PO SCH ×2 (08:07→21:24)
[2018-01-04] MEDS: valACYclovir 500 MG TAB PO SCH (08:07)
[2018-01-04] MEDS: buPROPion XL 300 MG TAB.ER.24H PO SCH (08:07)
[2018-01-04] MEDS: LORATADINE 10 MG TAB PO SCH (08:07)
[2018-01-04] MEDS: CEVIMELINE 30 MG CAP PO SCH ×2 (08:07→21:23)
[2018-01-04] MEDS: methylPREDNISolone SOD SUCCI 40 MG/ML 1 ML VIAL IV SCH ×2 (08:08→21:25)
[2018-01-04] MEDS ORDERED: cefTRIAXone IN SWFI 1,000 MG/10 ML SYRINGE IVP SCH (09:00)
[2018-01-04] MEDS ORDERED: ASPIRIN 325 MG TAB PO SCH (09:00)
--- NOTE | 2018-01-04 09:43 | CONS ---
CONSULTATION Marie Zazueta is a 77-year-old female who presented with increasing shortness of breath. She may have had some vague discomfort in the chest, but her main problem was shortness of breath with minimal exertion. She has been diagnosed with the left-sided multifocal pneumonia and is receiving IV antibiotics. Her symptoms have been ongoing for the last 2 to 3 weeks. However, Cardiology was consulted on account of an abnormal EKG as well as abnormal cardiac enzymes. A 12-lead ECG shows sinus tachycardia with T-wave inversions in the inferior leads and ST depression in the lateral precordial leads as well as the high lateral leads consistent with ischemia in the inferior lateral territory. There is cardiac injury demonstrated by abnormal cardiac enzymes which show a rising trend consistent with acute myocardial infarction in the setting of left multifocal pneumonitis. Her highest troponin is 2.16. These ECG changes are completely new. Some medications at this time include aspirin, atenolol, atorvastatin, Lasix, IV heparin and IV antibiotics including Zosyn and vancomycin. She is on Lasix 40 mg q.8. LABS: Are reviewed. White count is 9.7, hemoglobin is 8.9. Electrolytes are normal. BUN is 18, creatinine is 0.9. LDL is 68, HDL is 53, total cholesterol 124. ALLERGIES: To ENBREL, LATEX, SULFONAMIDES and TAPE PAST MEDICAL HISTORY: Rheumatoid arthritis, depression, immunocompromised state. She has had coronary artery disease, status post coronary stenting in the past. PHYSICAL EXAMINATION: On examination, she is lying in bed, slightly propped up. She is definitely short of breath at rest. She is afebrile, 97 degrees Fahrenheit, pulse rate in the 80s, blood pressure 102/65 mmHg, 99% on 2 L nasal oxygen via nasal via nasal cannula. Breath sounds are reduced bilaterally, especially on the left side. Heart sounds, S1, S2 are soft, but tachycardia. There are no murmurs. Abdomen is soft, nontender. Extremities are warm, no edema. IMPRESSION: 1. Acute myocardial injury consistent with abnormal ECG consistent with an acute myocardial infarction inferolateral tilting. 2. Known coronary artery disease status post stenting in the past. 3. Left-sided pneumonitis at this time and associated shortness of breath. 4. Patient was on appropriate treatment with appropriate packing for coronary artery disease. At this time she is also on IV heparin which I would continue. My plan is to continue IV Lasix while she is on IV antibiotics to avoid fluid overload. Get a 2D echo and Doppler study and continue heparin for at least 24 hours and then once her pneumonitis is under better control, then early next, proceed with coronary angiography. There is no plan for elective cardiac catheterization over the next 2-3 days until her pneumonitis resolves, unless it is an urgent situation. MMJANET / HERNESTON: [id number] /
--- NOTE | 2018-01-04 10:46 | XR ---
EXAMINATION TYPE: XR chest 2V DATE OF EXAM: 01/04/2018 COMPARISON: Prior chest x-ray 01/03/2018 HISTORY: Pneumonia TECHNIQUE: Frontal and lateral views of the chest are obtained. FINDINGS: There is some improvement in bilateral airspace disease. No pneumothorax or sizable effusi on evident. There are overlying cardiac leads. Heart size Slightly improved although there are differences in technique. Coronary artery stents, calcification suspected. IMPRESSION: Suspect improvement in volume status, aeration within the lungs.
[2018-01-04 11:35] LABS: Glucose,Whole Blood 226 mg/dL (75-99)
[2018-01-04] MEDS: IPRATROPIUM-ALBUTEROL 3 ML NEB INHALATION SCH ×2 (11:36→19:49)
[2018-01-04] MEDS: HEPARIN SODIUM,PORCINE/D5W PMX 25,000 UNIT in DEXTROSE/WATER 1 500ML.BAG IV SCH (12:23)
--- NOTE | 2018-01-04 12:44 | P.PN ---
Subjective Progress Note Date: 01/04/18 HPI:77-year-old female who was seen eval reexamined as per request of Dr. Garcia , patient is a nonsmoker but does have a history of complex and multiple medical problems and issues she is been complaining of increasing shortness of breath especially on exertion for last 1-1/2 month and last few weeks it got to a point that with activity and exertion she had to sit due to severe degree of dyspnea, patient was seen in the emergency department about a week ago was discharged now came back again and presented this time and emergency department earlier this morning with problems associated with bilateral chest discomfort more so on the left side feeling of generalized aches pains fatigue and some chest and back discomfort as well, patient has been admitted into the hospital a computed tomography scan of the chest was performed Interval History: 01/04/18- patient is being seen examined and evaluated on rounds. She is resting up in bed on 2 L of supplemental oxygen via nasal cannula. She did undergo an ultrasound of the chest yesterday which did reveal a right-sided 8.2 cm pleural effusion in the left 7.2 cm pleural effusion however both sides bilaterally have lung tissue was in the fluid. This is explained to the patient. And it is high risk to do a thoracentesis so we will continue to hold on the thoracentesis and do more diuresis. Her chest x-ray from this morning was reviewed and is improved. She continues on antibiotics, steroids and heparin drip. She is afebrile no further complaints. Objective - Vital Signs Vital signs: Vital Signs Temp 97.1 F L 01/04/18 08:00 Pulse 88 01/04/18 11:48 Resp 19 01/04/18 08:00 BP 93/56 01/04/18 08:00 Pulse Ox 99 01/04/18 08:02 Intake & Output 01/03/18 01/04/18 01/04/18 18:59 06:59 18:59 Intake Total 143.5 283.147 192.015 Output Total 700 Balance 143.5 -416.853 192.015 Weight 77.111 kg 81.4 kg 81.4 kg Intake: Intake, IV Titration 143.5 283.147 192.015 Amount Azithromycin 500 mg In 125 Sodium Chloride 0.9% 250 ml @ 125 mls/hr IVPB ONCE STA Rx#:[id number] Heparin Sodium,Porcine/ 18.5 283.147 192.015 D5w Pmx 25,000 unit In Dextrose/Water 1 500ml. bag @ 12 UNITS/KG/HR 18.5 mls/hr IV .Q24H [facility] Rx#: [id number] Output: Urine 700 Other: # Voids 1 1 - Exam GENERAL EXAM: Alert, active, comfortable in no apparent distress. HEAD: Normocephalic. EYES: Normal reaction of pupils, equal size. NOSE: Clear with pink turbinates. THROAT: No erythema or exudates. NECK: No masses, no JVD. CHEST: No chest wall deformity. LUNGS: Lungs noted to have some fine expiratory rales bilaterally. Bases diminished CVS: S1 and S2 normal with no audible mumurs, regular rhythm, tachy. ABDOMEN: No hepatosplenomegaly, normal bowel sounds, no guarding or rigidity. EXTREMITIES: No edema noted, pedal pulses palpable. CENTRAL NERVOUS SYSTEM: No focal deficits, tone is normal in all 4 extremities. - Labs CBC & Chem 7: 01/04/18 03:22 01/04/18 03:22 Labs: Abnormal Lab Results - Last 24 Hours (Table) 01/03/18 01/03/18 01/03/18 Range/Units 15:23 19:58 22:10 RBC (3.80-5.40) m/uL Hgb (11.4-16.0) gm/dL Hct (34.0-46.0) % RDW (11.5-15.5) % Neutrophils # (1.3-7.7) k/uL Lymphocytes # (1.0-4.8) k/uL APTT 41.0 H (22.0-30.0) sec Sodium (137-145) mmol/L Carbon Dioxide (22-30) mmol/L BUN (7-17) mg/dL Glucose (74-99) mg/dL POC Glucose (mg/dL) (75-99) mg/dL Total Creatine Kinase 244 H (30-135) U/L CK-MB (CK-2) 3.0 H* 7.2 H* (0.0-2.4) ng/mL Troponin I 0.575 H* 2.160 H* (0.000-0.034) ng/mL 01/04/18 01/04/18 01/04/18 Range/Units 03:22 03:22 03:22 RBC 3.00 L (3.80-5.40) m/uL Hgb 8.9 L (11.4-16.0) gm/dL Hct 28.6 L (34.0-46.0) % RDW 18.2 H (11.5-15.5) % Neutrophils # 8.9 H (1.3-7.7) k/uL Lymphocytes # 0.5 L (1.0-4.8) k/uL APTT 41.2 H (22.0-30.0) sec Sodium 134 L (137-145) mmol/L Carbon Dioxide 21 L (22-30) mmol/L BUN 18 H (7-17) mg/dL Glucose 226 H (74-99) mg/dL POC Glucose (mg/dL) (75-99) mg/dL Total Creatine Kinase (30-135) U/L CK-MB (CK-2) (0.0-2.4) ng/mL Troponin I (0.000-0.034) ng/mL 01/04/18 01/04/18 01/04/18 Range/Units 05:59 10:53 11:24 RBC (3.80-5.40) m/uL Hgb (11.4-16.0) gm/dL Hct (34.0-46.0) % RDW (11.5-15.5) % Neutrophils # (1.3-7.7) k/uL Lymphocytes # (1.0-4.8) k/uL APTT 50.6 H (22.0-30.0) sec Sodium (137-145) mmol/L Carbon Dioxide (22-30) mmol/L BUN (7-17) mg/dL Glucose (74-99) mg/dL POC Glucose (mg/dL) 251 H 226 H (75-99) mg/dL Total Creatine Kinase (30-135) U/L CK-MB (CK-2) (0.0-2.4) ng/mL Troponin I (0.000-0.034) ng/mL Assessment and Plan Assessment: Assessment: Acute hypoxic respiratory failure related to multi lobar pneumonia Bilateral pleural effusion likely related to acute heart failure Acute heart failure suspect acute on chronic systolic and/or diastolic heart failure Noninfectious complication like bronchiolitis obliterans occlusive pneumonia related to advanced rheumatoid arthritis cannot be excluded Suspect presence of pulmonary hypertension Rheumatoid lung and interstitial lung disease related to advanced rheumatoid arthritis cannot be excluded however patient needs to be evaluated once pneumonia clears up with a high resolution computed tomography scan which will be arranged on outpatient setting Plan: Medications have been reviewed and will be continued as ordered. Continue with pulmonary hygiene, coughing and deep breathing exercises, and supportive care. Supplemental oxygen to maintain oxygen saturations of 92% or better. Continue nebulizer treatments. GI and DVT prophylaxis. Heparin drip per cardiology Agree with workup of heart failure with echocardiogram and cardiovascular evaluation Would initiate patient on IV steroids with Solu-Medrol along with broad- spectrum antibiotics with vancomycin and Zosyn Sputum for Gram stain and culture Bilateral ultrasound of the chest if significant effusion is seen patient could benefit from thoracentesis Further evaluation of rheumatoid lung once pneumonia clears up Follow clinical course closely patient could benefit from bronchoscopy and transbronchial lung biopsy once more stable and if infiltrate do not clear Further recommendations pending plan of care as per clinical response of the patient We are covering for Dr. Valadez I performed an examination of the patient and discussed their management with the nurse practitioner. I have reviewed the nurse practitioner's note and agree with the documented findings and plan of care.
--- NOTE | 2018-01-04 12:52 | P.PN ---
Subjective Progress Note Date: 01/04/18 (Acute inferior LA, multilobar pneumonia) Principal diagnosis: This is dictation on the progress note date of service 01/04/2018. Dictation by Dr. Dinora Ewing [facility]. Patient seen and evaluated [id number] discussed with the current diagnosis. #1 acute myocardial infarction inferior wall with the EKG changes and progressive elevation of the troponin. #2 underlying multilobar pneumonia . #3 bilateral pleural effusion. #4 drop in blood pressure or the underlying LA. #5 anemia mixed picture with the underlying chronic disease as well as iron deficiency. #6 underlying mild metabolic acidosis with the carbon dioxide 18 has been improved to 20 today. #7 acute respiratory failure was the elbow pulse ox on room air to 94. Consultation: #1 Dr. Ferraro cnc specialist. #2 pulmonary and critical care Dr. Ismael Valadez. Examination [id number] today Vital sign indicating temperature 97 and repeat 97.1. Her heart rate 80 respiratory rate ranging between 17-19 nonlabored. Blood pressure was 102/65 with a mean 77 and repeat was 93/56 with a mean pressure 68. R oxygenation on room air was 94 L percentage on the nasal cannula was 2 L 99%. Laboratories: White count is 9.7, hemoglobin is 8.9 hematocrit 28.6 and MCV 95.6. She had a moderate hypochromic and the slight macrocytosis with the mixed picture. She is on heparin protocol with the lost PTT level 50.6. Chemistry indicating sodium 134, potassium 4.8, carbon dioxide 21 has been improved. BUN 18 creatinine 0.9 with the estimated glomerular filtration rate for non- 63. Her glucose is 226 covered with insulin to scale however repeat has been 251 and 226. Calcium 8.7, magnesium is 2. Her total CK 244, CK-MB 7.2, troponin 12.160 which progressively elevated with the underlying LA. Acute nature her triglyceride 54 with a total cholesterol 124 and LDL 60 and HDL 53. Troponin started on the 01/03/2018 and they are 0.179 and the second reading 0.575 , last reading troponin 1 was 2.160 indicator of acute transmural LA. BMP 6180 with the mild complication of congestive heart failure associated with effusion., Lactic acid 1.4 was done twice. Here original carbon dioxide was 18 on admission. Patient conscious alert oriented 3, denied any chest pain that she had costochondritis with the underlying osteoarthritis and history of rheumatoid arthritis. Patient also has immunosuppressed and has a high risk of cardiovascular with the rheumatoid arthritis. HEENT was negative she has upper plate dentures and lower partial. Uvula midline able to eat and drink however she is pale with the anemia which will be further investigation the iron and the vitamin with a mixed picture of hypochromasia and macrocytosis. Neck was supple no JVD no thyromegaly no lymphadenopathy and trachea midline. Chest: She has decreased air entry in the lower basis and the lung is 88. She had history of cough and she is on 3 antibiotic at this time with the consultation with Dr. Ismael Valadez pulmonary and critical care. Azithromycin, vancomycin, Rocephin,. With multi lobar pneumonia and pleural effusion. Heart: Regular sinus rhythm and she has history of aortic stenosis. Seen by Dr. Ferraro cardiology and the following the patient closely. Patient on heparin to call as well. The blood pressure dropped down mildly and discussed with Dr. Ferraro and we remove the Nitropaste and as well divided the atenolol to twice a day 50 mg which is a total doses that she has been taken before 100 mg. The abdomen is soft positive bowel sounds no tenderness. Extremities no edema and positive pulses. Neurological examination: No fascial asymmetry no ataxia and no lateralizing sign. Patient complaint for anxiety and insomnia especially with the start of steroid by Dr. 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 Assessment and plan. We'll check iron deficiency and will check vitamin B12 and folic acid as well and the continue the current medication adding Ativan at bedtime 0.5 mg because of the melatonin has not been effective. For further monitoring her laboratory and fasting blood sugar as well as hemoglobin A1c. Dr. Willam Wallace will be following the patient in my absence in the weekend started today until Sunday morning or a be back on service. Objective - Vital Signs Vital signs: Vital Signs Temp 97.1 F L 01/04/18 08:00 Pulse 88 01/04/18 11:48 Resp 19 01/04/18 08:00 BP 93/56 01/04/18 08:00 Pulse Ox 99 01/04/18 08:02 Intake & Output 01/03/18 01/04/18 01/04/18 18:59 06:59 18:59 Intake Total 143.5 283.147 192.015 Output Total 700 Balance 143.5 -416.853 192.015 Weight 77.111 kg 81.4 kg 81.4 kg Intake: Intake, IV Titration 143.5 283.147 192.015 Amount Azithromycin 500 mg In 125 Sodium Chloride 0.9% 250 ml @ 125 mls/hr IVPB [facility] Rx#:[id number] Heparin Sodium,Porcine/ 18.5 283.147 192.015 D5w Pmx 25,000 unit In Dextrose/Water 1 500ml. bag @ 12 UNITS/KG/HR 18.5 mls/hr IV .Q24H [facility] Rx#: [id number] Output: Urine 700 Other: # Voids 1 1 - Labs CBC & Chem 7: 01/04/18 03:22 01/04/18 03:22 Labs: Abnormal Lab Results - Last 24 Hours (Table) 01/03/18 01/03/18 01/03/18 Range/Units 15:23 19:58 22:10 RBC (3.80-5.40) m/uL Hgb (11.4-16.0) gm/dL Hct (34.0-46.0) % RDW (11.5-15.5) % Neutrophils # (1.3-7.7) k/uL Lymphocytes # (1.0-4.8) k/uL APTT 41.0 H (22.0-30.0) sec Sodium (137-145) mmol/L Carbon Dioxide (22-30) mmol/L BUN (7-17) mg/dL Glucose (74-99) mg/dL POC Glucose (mg/dL) (75-99) mg/dL Total Creatine Kinase 244 H (30-135) U/L CK-MB (CK-2) 3.0 H* 7.2 H* (0.0-2.4) ng/mL Troponin I 0.575 H* 2.160 H* (0.000-0.034) ng/mL 01/04/18 01/04/18 01/04/18 Range/Units 03:22 03:22 03:22 RBC 3.00 L (3.80-5.40) m/uL Hgb 8.9 L (11.4-16.0) gm/dL Hct 28.6 L (34.0-46.0) % RDW 18.2 H (11.5-15.5) % Neutrophils # 8.9 H (1.3-7.7) k/uL Lymphocytes # 0.5 L (1.0-4.8) k/uL APTT 41.2 H (22.0-30.0) sec Sodium 134 L (137-145) mmol/L Carbon Dioxide 21 L (22-30) mmol/L BUN 18 H (7-17) mg/dL Glucose 226 H (74-99) mg/dL POC Glucose (mg/dL) (75-99) mg/dL Total Creatine Kinase (30-135) U/L CK-MB (CK-2) (0.0-2.4) ng/mL Troponin I (0.000-0.034) ng/mL 01/04/18 01/04/18 01/04/18 Range/Units 05:59 10:53 11:24 RBC (3.80-5.40) m/uL Hgb (11.4-16.0) gm/dL Hct (34.0-46.0) % RDW (11.5-15.5) % Neutrophils # (1.3-7.7) k/uL Lymphocytes # (1.0-4.8) k/uL APTT 50.6 H (22.0-30.0) sec Sodium (137-145) mmol/L Carbon Dioxide (22-30) mmol/L BUN (7-17) mg/dL Glucose (74-99) mg/dL POC Glucose (mg/dL) 251 H 226 H (75-99) mg/dL Total Creatine Kinase (30-135) U/L CK-MB (CK-2) (0.0-2.4) ng/mL Troponin I (0.000-0.034) ng/mL
--- NOTE | 2018-01-04 14:20 | CDI ---
acute inferior TN Last Revision, June 2017 Documentation Clarification Form Date: 01/04/18 From: Samira Salazar RN Admit Date: 01/03/2018 1:04:00 PM Patient Name: Marie Zazueta Visit Number: [id number] ATTENTION: The Clinical Documentation Specialists (CDI) and [facility] Coding Staff appreciate your assistance in clarifying documentation. Please respond to the clarification below the line at the bottom and electronically sign. The CDI & [facility] Coding staff will review the response and follow-up if needed. Please note: Queries are made part of the Legal Health Record. If you have any questions, please contact the author of this message via ITS. Dr. Cornelio Garcia, Conflicting documentation has been found in the medical record. IN the H&P on 01/03 it is stated the patient had a Non Stemi On 01/04 it is stated acute myocardial infarction History/Risk Factors: RA, osteoarthritis, depression, immune compromised, anemia , CAD, angina, CVA/TIA, DM, DVT, TN Clinical Indicators: TROP 0.179 - 0.575 - 2.160 EKG: sinus tachycardia with t wave inversions and st depression in the lateral precordial leads as well as the high lateral leads consistent with ischemia in the inferior lateral territory. Consult: Cardiology Treatment: Atenolo, aspirin, heparin Telemetry In your opinion what is the most clinically appropriate diagnosis for this patient? Other explanation of clinical findings Unable to determine (no explanation for clinical findings) Please continue to document in your progress notes , under the line below and/ or in the discharge summary in order to capture severity of illness and risk of mortality. Include clinical findings that support your diagnosis. MTDD
[2018-01-04] MEDS: HYDROcodone/APAP 10-325MG 1 EACH TAB PO PRN ×2 (15:25→22:38)
[2018-01-04 16:52] LABS: Glucose,Whole Blood 228 mg/dL (75-99)
--- NOTE | 2018-01-04 18:40 | ECHOF ---
Referral Reason:chf,EKG abn. ,abn. troponin MEASUREMENTS -------- HEIGHT: 157.5 cm WEIGHT: 77.1 kg BP: 122/53 RVIDd: 2.3 cm (< 3.3) IVSd: 0.9 cm (0.6 - 1.1) LVIDd: 6.0 cm (3.9 - 5.3) LVPWd: 0.9 cm (0.6 - 1.1) IVSs: 1.0 cm LVIDs: 5.6 cm LVPWs: 1.0 cm LAESV Index (A-L): 45.51 ml/m Ao Diam: 2.7 cm (2.0 - 3.7) AV Cusp: 1.6 cm (1.5 - 2.6) LA Diam: 4.3 cm (2.7 - 3.8) EPSS: 2.0 cm MV E Nikolas: 1.28 m/s MV DecT: 216 ms MV A Inkolas: 1.21 m/s MV E/A Ratio: 1.06 AR PHT: 258 ms RAP: 5.00 mmHg RVSP: 40.90 mmHg MV EF SLOPE: 74.73 mm/s (70 - 150) MV EXCURSION: 1.75 cm (> 18.000) FINDINGS -------- Sinus rhythm. This was a technically difficult study with suboptimal views. The left ventricular size is normal. Left ventricular wall thickness is normal. Overall left vent ricular systolic function is severely impaired with, an EF between 20 - 25 %. Apical segments contr acting only. The right ventricle is normal in size. LA is severely dilated >40 ml/m2 RA appears enlarged. 5ml of Lumason was utilized for enhancement of images. Aortic valve is trileaflet and is mildly thickened. There is moderate aortic regurgitation. There is no evidence of aortic stenosis. The mitral valve leaflets are mildly thickened. Severe mitral regurgitation is present. Mild tricuspid regurgitation present. There is mild pulmonary hypertension. The right ventricular systolic pressure, as measured by Doppler, is 40.90mmHg. Trace/mild (physiologic) pulmonic regurgitation. The aortic root size is normal. Normal inferior vena cava with normal inspiratory collapse consistent with estimated right atrial pre ssure of 5 mmHg. There is no pericardial effusion. CONCLUSIONS -------- 1. Sinus rhythm. 2. This was a technically difficult study with suboptimal views. 3. The left ventricular size is normal. 4. Left ventricular wall thickness is normal. 5. Overall left ventricular systolic function is severely impaired with, an EF between 20 - 25 %. 6. Apical segments abena only. 7. LA is severely dilated >40 ml/m2 8. RA appears enlarged. 9. 5ml of Lumason was utilized for enhancement of images. 10. Aortic valve is trileaflet and is mildly thickened. 11. There is moderate aortic regurgitation. 12. The mitral valve leaflets are mildly thickened. 13. Severe mitral regurgitation is present. 14. Mild tricuspid regurgitation present. 15. There is mild pulmonary hypertension. 16. The right ventricular systolic pressure, as measured by Doppler, is 40.90mmHg. 17. Trace/mild (physiologic) pulmonic regurgitation. 18. The aortic root size is normal. 19. There is no pericardial effusion. DOUGH RAISER: Femi Bray RDCS
[2018-01-04 20:59] LABS: Glucose,Whole Blood 246 mg/dL (75-99)
[2018-01-04] MEDS: ATORVASTATIN 80 MG TAB PO SCH (21:23)
[2018-01-04] MEDS: INSULIN DETEMIR 100 UNIT/ML 10 ML VIAL SQ SCH (21:23)
[2018-01-04] MEDS: ATENOLOL 50 MG TAB PO SCH (21:24)
[2018-01-04] MEDS: LORazepam 0.5 MG TAB PO SCH (21:24)
[2018-01-05 05:49] LABS: Glucose,Whole Blood 109 mg/dL (75-99)
[2018-01-05] MEDS: INSULIN ASPART 100 UNIT/ML 1 ML 10 ML VIAL SQ SCH ×4 (05:54→21:22)
[2018-01-05] MEDS: FUROSEMIDE 10 MG/ML 4 ML VIAL IV SCH (06:05)
[2018-01-05] MEDS: PANTOPRAZOLE 40 MG TABLET PO SCH (06:05)
[2018-01-05 06:42] LABS: Anisocytosis Slight; Basophils % (A) 0 %; Eosinophils % (A) 0 %; HCT 25.8 % (34.0-46.0); HGB 8.4 gm/dL (11.4-16.0); Hypochromasia Slight; Lymphocytes # (A) 1.2 k/uL (1.0-4.8); Lymphocytes % (A) 14 %; MCH 30.1 pg (25.0-35.0); MCHC 32.5 g/dL (31.0-37.0); MCV 92.7 fL (80.0-100.0); Macrocytosis Slight; Mean Platelet Volume 7.2; Monocytes # (A) 0.4 k/uL (0-1.0); Monocytes % (A) 5 %; Neutrophils # (A) 6.9 k/uL (1.3-7.7); Neutrophils % (A) 79 %; Platelet Count 241 k/uL (150-450); RBC 2.79 m/uL (3.80-5.40); WBC 8.7 k/uL (3.8-10.6)
[2018-01-05 07:19] LABS: Calcium 8.6 mg/dL (8.4-10.2)
[2018-01-05 07:24] LABS: Potassium 4.4 mmol/L (3.5-5.1)
[2018-01-05] MEDS: IPRATROPIUM-ALBUTEROL 3 ML NEB INHALATION SCH ×3 (09:05→20:26)
[2018-01-05] MEDS: GABAPENTIN 300 MG CAP PO SCH ×3 (09:23→19:35)
[2018-01-05] MEDS: MEMANTINE 10 MG TAB PO SCH ×2 (09:23→19:35)
[2018-01-05] MEDS: DULoxetine HCL 30 MG CAPSULE.DR PO SCH (09:24)
[2018-01-05] MEDS: ATENOLOL 50 MG TAB PO SCH ×2 (09:24→19:35)
[2018-01-05] MEDS: CEVIMELINE 30 MG CAP PO SCH ×2 (09:24→19:35)
[2018-01-05] MEDS: SENNOSIDES-DOCUSATE SODIUM 1 EACH TAB PO SCH ×2 (09:26→19:35)
[2018-01-05] MEDS: valACYclovir 500 MG TAB PO SCH (09:26)
[2018-01-05] MEDS: ASPIRIN 81 MG PO SCH (09:26)
[2018-01-05] MEDS: LORATADINE 10 MG TAB PO SCH (09:26)
[2018-01-05] MEDS: buPROPion XL 300 MG TAB.ER.24H PO SCH (09:26)
[2018-01-05] MEDS: AZITHROMYCIN 500 MG TAB PO SCH (09:26)
[2018-01-05] MEDS: methylPREDNISolone SOD SUCCI 40 MG/ML 1 ML VIAL IV SCH ×2 (09:27→21:37)
[2018-01-05] MEDS: PIPERACILLIN-TAZOBACTAM 3.375 GM in DEXTROSE/WATER 1 50ML.BAG IVPB SCH ×2 (10:54→17:13)
[2018-01-05] MEDS: HYDROcodone/APAP 10-325MG 1 EACH TAB PO PRN ×2 (11:07→19:35)
[2018-01-05 11:33] LABS: Glucose,Whole Blood 157 mg/dL (75-99)
[2018-01-05 12:01] LABS: Iron Saturation 5.5 (12.00-45.00)
--- NOTE | 2018-01-05 12:08 | PN ---
PROGRESS NOTE Marie is doing well. She has no chest discomfort, dizziness, lightheadedness. She did have non-Q-wave myocardial infarction. She is pain free. White count is normal. She is on IV antibiotics at this time. Electrolytes show sodium 135, potassium 4.4, bicarb 21, BUN 36, and creatinine . LDL is 60. EXAMINATION: Temperature is 97.4 degrees Fahrenheit, pulse rate in the 70s, blood pressure is 122/66 mmHg, 94% on room air. Medications were reviewed. She is on aspirin, Atenolol, atorvastatin and currently on IV Lasix and IV heparin as well as IV antibiotics. PLAN: 1. Stop heparin tomorrow morning at 5:00 am. 2. Continue current medications but stop IV Lasix and switch to p.o. Lasix 40 mg p.o. daily. MMLAUREANOL / HERNESTON: [id number] /
--- NOTE | 2018-01-05 13:02 | PN ---
PROGRESS NOTE DATE OF SERVICE: 01/05/2018. She does not complain of any shortness of breath today. She has an occasional cough. She is due for a cardiac cath apparently on Sunday. She continues on IV heparin. On physical examination, her blood pressure is 108/56, respiratory rate of 18, pulse rate of 80, temperature 97.4, O2 saturation on room air is 96%. HEENT is unremarkable. Chest reveals decreased breath sounds at bases. Cardiovascular system reveals a S1, S2. Abdomen is soft. There is trace pedal edema. White count is 8.7, hemoglobin of 8.4. Sodium 135, potassium 4.4, chloride 99, bicarb 29, BUN 26, creatinine 0.98. IMPRESSION: At this time: 1. Acute hypoxic respiratory failure in part due to congestive heart failure. 2. Bilateral pleural effusions. 3. Possible pulmonary hypertension. 4. Rheumatoid lung and interstitial lung disease. Continue to optimize the fluid status. Continue her on IV heparin. Agree with further workup from a cardiac perspective. Continue antibiotics. Her prognosis at this time is guarded. MMODL / IJN: [id number] /
[2018-01-05] MEDS: FERROUS SULFATE 325 MG TAB PO SCH (13:09)
[2018-01-05] MEDS: VANCOMYCIN 1,250 MG in SODIUM CHLORIDE 0.9% 250 ML IVPB SCH (15:36)
[2018-01-05] MEDS: HEPARIN SODIUM,PORCINE/D5W PMX 25,000 UNIT in DEXTROSE/WATER 1 500ML.BAG IV SCH (15:46)
[2018-01-05 16:54] LABS: Glucose,Whole Blood 246 mg/dL (75-99)
--- NOTE | 2018-01-05 17:20 | PN ---
PROGRESS NOTE DATE OF SERVICE: 01/05/2018. ATTENDING PHYSICIAN: Dr. Garcia This is a 77-year-old white female who was admitted by Dr. Garcia. The patient has multiple medical problems. The patient was seen by me as I am covering Dr. Garcia this weekend. The patient has a longstanding history of coronary artery disease and has had several stent placements in the past. This time she was admitted with non ST elevation myocardial infarction. Her cardiac enzymes were elevated and the troponin was also elevated and the last troponin level was 2.1. The patient also has bilateral pneumonia with bilateral pleural effusion and the patient currently receiving IV antibiotics and steroid and also getting heparin drip. The patient was seen by [facility] in consultation and they are following the patient. As her troponin level was elevated, release of information clerk is planning to do cardiac catheterization on Sunday. The patient denies any chest pain and the patient was also seen by restaurant line cook in consultation and they are also following the patient because she is on heparin and going to have a cardiac catheterization. Thoracentesis is not going to be done now. The patient also has anemia. Her hemoglobin today is 8.4. It was gradually dropping. The patient denies any rectal bleeding. However, we will check the stool for any occult blood. We will also place her on ferrous sulfate 325 mg p.o. daily. Her vital signs otherwise stable and she is not in any acute distress. Overall prognosis is guarded. The diagnosis, prognosis and therapeutic plans were discussed in detail with the patient today. MMODL / IJN: [id number] /
[2018-01-05] MEDS: ATORVASTATIN 80 MG TAB PO SCH (19:35)
[2018-01-05 21:12] LABS: Glucose,Whole Blood 163 mg/dL (75-99)
[2018-01-05] MEDS: MELATONIN 3 MG TABLET PO PRN (21:22)
[2018-01-05] MEDS: INSULIN DETEMIR 100 UNIT/ML 10 ML VIAL SQ SCH (21:22)
[2018-01-05] MEDS: LORazepam 0.5 MG TAB PO SCH (21:22)
[2018-01-06] MEDS: PIPERACILLIN-TAZOBACTAM 3.375 GM in DEXTROSE/WATER 1 50ML.BAG IVPB SCH ×3 (00:44→15:58)
[2018-01-06] MEDS ORDERED: VANCOMYCIN TROUGH DUE 1 EACH MISC MISCELLANE ONE (05:00)
[2018-01-06] MEDS: VANCOMYCIN 1,250 MG in SODIUM CHLORIDE 0.9% 250 ML IVPB SCH (05:24)
[2018-01-06 05:55] LABS: Glucose,Whole Blood 110 mg/dL (75-99)
[2018-01-06] MEDS: INSULIN ASPART 100 UNIT/ML 1 ML 10 ML VIAL SQ SCH ×4 (05:59→23:01)
[2018-01-06 06:11] LABS: Mean Platelet Volume 7.1; Platelet Count 210 k/uL (150-450)
[2018-01-06] MEDS: PANTOPRAZOLE 40 MG TABLET PO SCH (06:58)
[2018-01-06] MEDS: IPRATROPIUM-ALBUTEROL 3 ML NEB INHALATION SCH ×3 (08:19→20:48)
[2018-01-06] MEDS: CEVIMELINE 30 MG CAP PO SCH ×2 (08:22→20:43)
[2018-01-06] MEDS: methylPREDNISolone SOD SUCCI 40 MG/ML 1 ML VIAL IV SCH ×2 (08:22→20:43)
[2018-01-06] MEDS: GABAPENTIN 300 MG CAP PO SCH ×3 (08:22→20:44)
[2018-01-06] MEDS: AZITHROMYCIN 500 MG TAB PO SCH (08:23)
[2018-01-06] MEDS: valACYclovir 500 MG TAB PO SCH (08:23)
[2018-01-06] MEDS: MEMANTINE 10 MG TAB PO SCH ×2 (08:23→20:43)
[2018-01-06] MEDS: ATENOLOL 50 MG TAB PO SCH ×2 (08:23→20:42)
[2018-01-06] MEDS: SENNOSIDES-DOCUSATE SODIUM 1 EACH TAB PO SCH ×2 (08:23→20:44)
[2018-01-06] MEDS: ASPIRIN 81 MG PO SCH (08:23)
[2018-01-06] MEDS: buPROPion XL 300 MG TAB.ER.24H PO SCH (08:23)
[2018-01-06] MEDS: DULoxetine HCL 30 MG CAPSULE.DR PO SCH (08:24)
[2018-01-06] MEDS: LORATADINE 10 MG TAB PO SCH (08:25)
[2018-01-06] MEDS: HYDROcodone/APAP 10-325MG 1 EACH TAB PO PRN (08:36)
[2018-01-06] MEDS ORDERED: FUROSEMIDE 10 MG/ML 4 ML VIAL IV SCH (09:00)
--- NOTE | 2018-01-06 11:39 | PN ---
PROGRESS NOTE DATE OF SERVICE: 01/06/2018 This is a 77-year-old white female, home, who is a patient of Dr. Garcia. I saw the patient today for Dr. Garcia as I am covering Dr. Garcia this weekend. The patient was admitted with severe shortness of breath and cough and general weakness and in the ER, she was found to have found to be in acute hypoxic respiratory failure and also congestive heart failure and bilateral pleural effusion and pneumonia. She was also found to be anemic and her hemoglobin is 8.4 and it was dropping from previous lab results. The patient was started on iron tablets and also checking the stool for occult blood. The patient was seen by [facility] in consultation and the patient has a history of multiple stent placements in the past. Dr. Ferraro saw the patient today and he is planning to do a cardiac catheterization tomorrow. The patient was also seen by Dr. Ping Penn in consultation The patient is getting IV antibiotics and IV Solu-Medrol and updraft treatments. The patient today is complaining of generalized weakness and otherwise her vital signs are stable. Heart is in sinus rhythm. Lungs revealed diminished breath sounds both bases with few scattered rales and rhonchi. Abdomen is soft and nontender. There is no mass palpable. Examination of the lower extremities reveal no pitting edema. Neurologic examination does not reveal localizing signs. The patient's weakness could be due to the anemia and the patient has been started on iron tablets and also checking the stool for occult blood. Prognosis is guarded. The diagnosis, prognosis and therapeutic plans were discussed in detail with the patient today also. Dr. Garcia will be back to work and resume care of this patient tomorrow. MMODL / IJN: [id number] /
[2018-01-06 11:53] LABS: Glucose,Whole Blood 170 mg/dL (75-99)
[2018-01-06] MEDS: FERROUS SULFATE 325 MG TAB PO SCH (11:53)
[2018-01-06 16:30] LABS: Glucose,Whole Blood 241 mg/dL (75-99)
[2018-01-06] MEDS: VANCOMYCIN 1,500 MG in SODIUM CHLORIDE 0.9% 250 ML IVPB SCH (17:28)
--- NOTE | 2018-01-06 19:27 | PN ---
PROGRESS NOTE 77-year-old female. Marie seems to be stable. She denies any chest discomfort. She does appear a bit short of breath. Blood pressure is 147/84, 133/80 and 102/61 mmHg. She appears to be short of breath at rest. Heart rate is in normal range. Afebrile. Breath sounds are reduced bilaterally. Some crackles at the bases. Heart sounds S1, S2 are soft. She is being treated with IV antibiotics. I reviewed her medications. FINAL IMPRESSION: 1. The patient is being treated for infection in her urinary system. 2. Non-Q-wave myocardial infarction and she is on aspirin, atenolol and atorvastatin. Yesterday had I reduced the dose of Lasix to 40 mg once daily but I would increase that to twice daily since she appears a bit short of breath today. We will reassess tomorrow for cardiac catheterization. MMODL / IJN: [id number] /
[2018-01-06] MEDS: FUROSEMIDE 10 MG/ML 4 ML VIAL IV SCH (20:42)
[2018-01-06] MEDS: ATORVASTATIN 80 MG TAB PO SCH (20:43)
[2018-01-06 20:50] LABS: Glucose,Whole Blood 213 mg/dL (75-99)
[2018-01-06] MEDS: LORazepam 0.5 MG TAB PO SCH (23:01)
[2018-01-06] MEDS: INSULIN DETEMIR 100 UNIT/ML 10 ML VIAL SQ SCH (23:02)
[2018-01-07] MEDS: PIPERACILLIN-TAZOBACTAM 3.375 GM in DEXTROSE/WATER 1 50ML.BAG IVPB SCH ×4 (00:15→23:06)
[2018-01-07 05:57] LABS: Glucose,Whole Blood 105 mg/dL (75-99)
[2018-01-07] MEDS: PANTOPRAZOLE 40 MG TABLET PO SCH (05:59)
[2018-01-07] MEDS: INSULIN ASPART 100 UNIT/ML 1 ML 10 ML VIAL SQ SCH ×4 (05:59→20:30)
[2018-01-07] MEDS: HYDROcodone/APAP 10-325MG 1 EACH TAB PO PRN (06:07)
[2018-01-07 06:49] LABS: Anisocytosis Slight; Basophils % (A) 0 %; Eosinophils % (A) 0 %; HCT 24.5 % (34.0-46.0); HGB 8.2 gm/dL (11.4-16.0); Hypochromasia Slight; Lymphocytes # (A) 1.5 k/uL (1.0-4.8); Lymphocytes % (A) 17 %; MCH 30.1 pg (25.0-35.0); MCHC 33.3 g/dL (31.0-37.0); MCV 90.3 fL (80.0-100.0); Mean Platelet Volume 7.4; Monocytes # (A) 0.7 k/uL (0-1.0); Monocytes % (A) 8 %; Neutrophils # (A) 6.5 k/uL (1.3-7.7); Neutrophils % (A) 73 %; Platelet Count 243 k/uL (150-450); RBC 2.71 m/uL (3.80-5.40); RDW 17.8 % (11.5-15.5); WBC 8.9 k/uL (3.8-10.6)
[2018-01-07 07:01] LABS: Calcium 8.8 mg/dL (8.4-10.2); Potassium 3.9 mmol/L (3.5-5.1)
[2018-01-07] MEDS: IPRATROPIUM-ALBUTEROL 3 ML NEB INHALATION SCH ×3 (08:03→19:06)
[2018-01-07] MEDS: DULoxetine HCL 30 MG CAPSULE.DR PO SCH (08:47)
[2018-01-07] MEDS: MEMANTINE 10 MG TAB PO SCH ×2 (08:47→20:05)
[2018-01-07] MEDS: ASPIRIN 81 MG PO SCH (08:48)
[2018-01-07] MEDS: GABAPENTIN 300 MG CAP PO SCH ×3 (08:48→20:05)
[2018-01-07] MEDS: CEVIMELINE 30 MG CAP PO SCH ×2 (08:48→20:04)
[2018-01-07] MEDS: LORATADINE 10 MG TAB PO SCH (08:48)
[2018-01-07] MEDS: FUROSEMIDE 10 MG/ML 4 ML VIAL IV SCH ×2 (08:48→20:04)
[2018-01-07] MEDS: buPROPion XL 300 MG TAB.ER.24H PO SCH (08:48)
[2018-01-07] MEDS: SENNOSIDES-DOCUSATE SODIUM 1 EACH TAB PO SCH ×2 (08:48→20:05)
[2018-01-07] MEDS: ATENOLOL 50 MG TAB PO SCH ×2 (08:48→20:04)
[2018-01-07] MEDS: valACYclovir 500 MG TAB PO SCH (08:48)
[2018-01-07] MEDS: AZITHROMYCIN 500 MG TAB PO SCH (08:48)
[2018-01-07] MEDS: methylPREDNISolone SOD SUCCI 40 MG/ML 1 ML VIAL IV SCH (08:49)
--- NOTE | 2018-01-07 09:50 | P.PN ---
Subjective Progress Note Date: 01/06/18 (Late entry note) Principal diagnosis: Bilateral pneumonia, acute hypoxic respirator failure, non-infectious pneumonia like bronchiolitis obliterans occlusive pneumonia cannot be excluded, acute hypoxic respirator failure, bilateral pleural effusion, congestive heart failure likely acute systolic heart failure, coronary artery disease, non-ST segment elevated SC 01/06/2018, patient seen and evaluated examined during the rounds has been getting IV steroids antibiotics with significant improvement in respiratory status cardiovascular services following planning for cath and angiogram likely tomorrow labs reviewed medications reviewed care plan discussed with the patient at length 77-year-old female who was seen eval reexamined as per request of Dr. Garcia, patient is a nonsmoker but does have a history of complex and multiple medical problems and issues she is been complaining of increasing shortness of breath especially on exertion for last 1-1/2 month and last few weeks it got to a point that with activity and exertion she had to sit due to severe degree of dyspnea, patient was seen in the emergency department about a week ago was discharged now came back again and presented this time and emergency department earlier this morning with problems associated with bilateral chest discomfort more so on the left side feeling of generalized aches pains fatigue and some chest and back discomfort as well, patient has been admitted into the hospital a computed tomography scan of the chest was performed which I have reviewed Her history is significant for advanced rheumatoid arthritis for which she is on methotrexate once a week and Xeljanz 5 mg 2 times a day, her last use of oral prednisone was somewhere about a month to 2 months ago, her history is significant for coronary artery disease and angina history of TIAs type 2 diabetes mellitus deep venous thrombosis chronic fibromyalgia dyslipidemia hypertension hypertensive cardiovascular disease Objective - Vital Signs Vital signs: Vital Signs Temp 97.7 F 01/07/18 08:53 Pulse 79 01/07/18 08:53 Resp 18 01/07/18 08:53 BP 129/61 01/07/18 08:53 Pulse Ox 95 01/07/18 08:53 Intake & Output 01/06/18 01/07/18 01/07/18 18:59 06:59 18:59 Intake Total 1070 250 Output Total 1400 1200 Balance -330 -950 Weight 83.4 kg Intake: Intake, IV Titration 350 100 Amount Piperacillin-Tazobactam 3 100 100 .375 gm In Dextrose/Water 1 50ml.bag @ 12.5 mls/hr IVPB Q8HR [facility] Rx#: [id number] Vancomycin 1,500 mg In 250 Sodium Chloride 0.9% 250 ml @ 125 mls/hr IVPB Q16H [facility] Rx#:[id number] Oral 720 150 Output: Urine 1400 1200 Other: # Voids 5 - Exam General appearance: alert, in no apparent distress Head exam: Present: atraumatic Eye exam: Present: normal appearance, PERRL ENT exam: Present: normal oropharynx Neck exam: Present: normal inspection Respiratory exam: Present: rales (Left lung base) with fine expiratory rhonchi basal crackles are present the last to percussion and decrease in air entry at the bases noted bilaterally Cardiovascular Exam: Present: tachycardia GI/Abdominal exam: Present: soft. Absent: tenderness Extremities exam: Present: normal inspection. Absent: pedal edema, calf tenderness, examination the hand revealed finding consistent with advanced rheumatoid arthritis Back exam: Present: normal inspection. Absent: tenderness Neurological exam: Present: alert Psychiatric exam: Present: normal affect, normal mood Skin exam: Present: normal color - Labs CBC & Chem 7: 01/07/18 06:24 01/07/18 06:24 Labs: Abnormal Lab Results - Last 24 Hours (Table) 01/06/18 01/06/18 01/06/18 Range/Units 11:27 16:21 20:48 RBC (3.80-5.40) m/uL Hgb (11.4-16.0) gm/dL Hct (34.0-46.0) % RDW (11.5-15.5) % Sodium (137-145) mmol/L Chloride (98-107) mmol/L BUN (7-17) mg/dL Glucose (74-99) mg/dL POC Glucose (mg/dL) 170 H 241 H 213 H (75-99) mg/dL 01/07/18 01/07/18 01/07/18 Range/Units 05:53 06:24 06:24 RBC 2.71 L (3.80-5.40) m/uL Hgb 8.2 L (11.4-16.0) gm/dL Hct 24.5 L (34.0-46.0) % RDW 17.8 H (11.5-15.5) % Sodium 135 L (137-145) mmol/L Chloride 97 L (98-107) mmol/L BUN 23 H (7-17) mg/dL Glucose 102 H (74-99) mg/dL POC Glucose (mg/dL) 105 H (75-99) mg/dL Microbiology - Last 24 Hours (Table) 01/03/18 22:10 Blood Culture - Preliminary Blood No Growth after 72 hours 01/03/18 21:48 Blood Culture - Preliminary Blood No Growth after 72 hours 01/03/18 10:31 Blood Culture - Preliminary Blood No Growth after 72 hours Assessment and Plan Assessment: Acute hypoxic respiratory failure related to multi lobar pneumonia Bilateral pleural effusion likely related to acute heart failure Acute heart failure suspect acute on chronic systolic and/or diastolic heart failure Noninfectious complication like bronchiolitis obliterans occlusive pneumonia related to advanced rheumatoid arthritis cannot be excluded Suspect presence of pulmonary hypertension Rheumatoid lung and interstitial lung disease related to advanced rheumatoid arthritis cannot be excluded however patient needs to be evaluated once pneumonia clears up with a high resolution computed tomography scan which will be arranged on outpatient setting Plan: Agree with workup of heart failure with echocardiogram and cardiovascular evaluation Would maintain patient on IV steroids with Solu-Medrol along with broad- spectrum antibiotics with vancomycin and Zosyn Sputum for Gram stain and culture Bilateral ultrasound of the chest if significant effusion is seen patient could benefit from thoracentesis Further evaluation of rheumatoid lung once pneumonia clears up Follow clinical course closely patient could benefit from bronchoscopy and transbronchial lung biopsy once more stable and if infiltrate do not clear Further recommendations pending plan of care as per clinical response of the patient Time with Patient: Greater than 30
--- NOTE | 2018-01-07 09:53 | P.PN ---
Subjective Progress Note Date: 01/07/18 Principal diagnosis: Bilateral pneumonia, acute hypoxic respirator failure, non-infectious pneumonia like bronchiolitis obliterans occlusive pneumonia cannot be excluded, acute hypoxic respirator failure, bilateral pleural effusion, congestive heart failure likely acute systolic heart failure, coronary artery disease, non-ST segment elevated ID 01/07/2018, patient seen eval examined during the rounds clinically patient has been doing slightly better in terms of breathing denies any cough or sputum production patient remains on broad-spectrum antibiotics and IV steroids tolerating well her to cath and angiogram has been postponed for tomorrow, patient appears to be responding well with IV steroids breathing treatments and antibiotics along with gentle diuresis will lowered down the Solu-Medrol to once daily today 01/06/2018, patient seen and evaluated examined during the rounds has been getting IV steroids antibiotics with significant improvement in respiratory status cardiovascular services following planning for cath and angiogram likely tomorrow labs reviewed medications reviewed care plan discussed with the patient at length 77-year-old female who was seen eval reexamined as per request of Dr. Garcia, patient is a nonsmoker but does have a history of complex and multiple medical problems and issues she is been complaining of increasing shortness of breath especially on exertion for last 1-1/2 month and last few weeks it got to a point that with activity and exertion she had to sit due to severe degree of dyspnea, patient was seen in the emergency department about a week ago was discharged now came back again and presented this time and emergency department earlier this morning with problems associated with bilateral chest discomfort more so on the left side feeling of generalized aches pains fatigue and some chest and back discomfort as well, patient has been admitted into the hospital a computed tomography scan of the chest was performed which I have reviewed Her history is significant for advanced rheumatoid arthritis for which she is on methotrexate once a week and Xeljanz 5 mg 2 times a day, her last use of oral prednisone was somewhere about a month to 2 months ago, her history is significant for coronary artery disease and angina history of TIAs type 2 diabetes mellitus deep venous thrombosis chronic fibromyalgia dyslipidemia hypertension hypertensive cardiovascular disease Objective - Vital Signs Vital signs: Vital Signs Temp 97.7 F 01/07/18 08:53 Pulse 79 01/07/18 08:53 Resp 18 01/07/18 08:53 BP 129/61 01/07/18 08:53 Pulse Ox 95 01/07/18 08:53 Intake & Output 01/06/18 01/07/18 01/07/18 18:59 06:59 18:59 Intake Total 1070 250 Output Total 1400 1200 Balance -330 -950 Weight 83.4 kg Intake: Intake, IV Titration 350 100 Amount Piperacillin-Tazobactam 3 100 100 .375 gm In Dextrose/Water 1 50ml.bag @ 12.5 mls/hr IVPB Q8HR RUKHSANA Rx#: [id number] Vancomycin 1,500 mg In 250 Sodium Chloride 0.9% 250 ml @ 125 mls/hr IVPB Q16H RUKHSANA Rx#:[id number] Oral 720 150 Output: Urine 1400 1200 Other: # Voids 5 - Exam General appearance: alert, in no apparent distress Head exam: Present: atraumatic Eye exam: Present: normal appearance, PERRL ENT exam: Present: normal oropharynx Neck exam: Present: normal inspection Respiratory exam: Present: rales (Left lung base) with fine expiratory rhonchi basal crackles are present the last to percussion and decrease in air entry at the bases noted bilaterally Cardiovascular Exam: Present: tachycardia GI/Abdominal exam: Present: soft. Absent: tenderness Extremities exam: Present: normal inspection. Absent: pedal edema, calf tenderness, examination the hand revealed finding consistent with advanced rheumatoid arthritis Back exam: Present: normal inspection. Absent: tenderness Neurological exam: Present: alert Psychiatric exam: Present: normal affect, normal mood Skin exam: Present: normal color - Labs CBC & Chem 7: 01/07/18 06:24 01/07/18 06:24 Labs: Abnormal Lab Results - Last 24 Hours (Table) 01/06/18 01/06/18 01/06/18 Range/Units 11:27 16:21 20:48 RBC (3.80-5.40) m/uL Hgb (11.4-16.0) gm/dL Hct (34.0-46.0) % RDW (11.5-15.5) % Sodium (137-145) mmol/L Chloride (98-107) mmol/L BUN (7-17) mg/dL Glucose (74-99) mg/dL POC Glucose (mg/dL) 170 H 241 H 213 H (75-99) mg/dL 01/07/18 01/07/18 01/07/18 Range/Units 05:53 06:24 06:24 RBC 2.71 L (3.80-5.40) m/uL Hgb 8.2 L (11.4-16.0) gm/dL Hct 24.5 L (34.0-46.0) % RDW 17.8 H (11.5-15.5) % Sodium 135 L (137-145) mmol/L Chloride 97 L (98-107) mmol/L BUN 23 H (7-17) mg/dL Glucose 102 H (74-99) mg/dL POC Glucose (mg/dL) 105 H (75-99) mg/dL Microbiology - Last 24 Hours (Table) 01/03/18 22:10 Blood Culture - Preliminary Blood No Growth after 72 hours 01/03/18 21:48 Blood Culture - Preliminary Blood No Growth after 72 hours 01/03/18 10:31 Blood Culture - Preliminary Blood No Growth after 72 hours Assessment and Plan Assessment: Acute hypoxic respiratory failure related to multi lobar pneumonia Bilateral pleural effusion likely related to acute heart failure Acute heart failure suspect acute on chronic systolic and/or diastolic heart failure Noninfectious complication like bronchiolitis obliterans occlusive pneumonia related to advanced rheumatoid arthritis cannot be excluded Suspect presence of pulmonary hypertension Rheumatoid lung and interstitial lung disease related to advanced rheumatoid arthritis cannot be excluded however patient needs to be evaluated once pneumonia clears up with a high resolution computed tomography scan which will be arranged on outpatient setting Plan: Agree with workup of heart failure with echocardiogram and cardiovascular evaluation, with cardiac cath and angiogram Would maintain patient on IV steroids with Solu-Medrol along with broad- spectrum antibiotics with vancomycin and Zosyn Sputum for Gram stain and culture Bilateral ultrasound of the chest if significant effusion is seen patient could benefit from thoracentesis Further evaluation of rheumatoid lung once pneumonia clears up Follow clinical course closely patient could benefit from bronchoscopy and transbronchial lung biopsy once more stable and if infiltrate do not clear Further recommendations pending plan of care as per clinical response of the patient Time with Patient: Greater than 30
[2018-01-07] MEDS: VANCOMYCIN 1,500 MG in SODIUM CHLORIDE 0.9% 250 ML IVPB SCH (10:40)
[2018-01-07] MEDS ORDERED: NITROGLYCERIN SL TABS 0.4 MG TAB SUBLINGUAL PRN (11:05)
[2018-01-07] MEDS ORDERED: ALPRAZolam 0.25 MG TAB PO PRN (11:05)
[2018-01-07] MEDS ORDERED: ALPRAZolam 0.5 MG TAB PO PRN (11:05)
[2018-01-07] MEDS ORDERED: SODIUM CHLORIDE 0.9% 1,000 ML in EMPTY BAG 1 BAG IV ONE (11:05)
[2018-01-07] MEDS ORDERED: ATORVASTATIN 80 MG TAB PO STA (11:05)
[2018-01-07] MEDS ORDERED: ASPIRIN 325 MG TAB PO STA (11:05)
--- NOTE | 2018-01-07 11:16 | P.PN ---
Subjective Progress Note Date: 01/07/18 Principal diagnosis: Shortness of breath This is a 77-year-old female who follows with in the office. She has a known history of rheumatoid arthritis, coronary artery disease with prior stent placement, hypertension, hyperlipidemia. She presented to the hospital with symptoms of worsening shortness of breath, exertional in nature. Patient had been diagnosed with left-sided multifocal pneumonia and was receiving antibiotics IV. Cardiology consultation was initially requested because of abnormal EKG and cardiac enzymes. She was seen in consultation by Dr. Ferraro. Blood pressure this morning 128/60 with a heart rate in the 70s, temperature 97.7. White blood cell count 8.9, hemoglobin 8.2, platelet count 243. Sodium 135, potassium 3.9, BUN 23, creatinine 0.8. Patient's breathing overall today is stable. Objective - Vital Signs Vital signs: Vital Signs Temp 97.7 F 01/07/18 08:53 Pulse 79 01/07/18 08:53 Resp 18 01/07/18 08:53 BP 129/61 01/07/18 08:53 Pulse Ox 95 01/07/18 08:53 Intake & Output 01/06/18 01/07/18 01/07/18 18:59 06:59 18:59 Intake Total 1070 250 580 Output Total 1400 1200 Balance -330 -950 580 Weight 83.4 kg Intake: Intake, IV Titration 350 100 Amount Piperacillin-Tazobactam 3 100 100 .375 gm In Dextrose/Water 1 50ml.bag @ 12.5 mls/hr IVPB Q8HR RUKHSANA Rx#: [id number] Vancomycin 1,500 mg In 250 Sodium Chloride 0.9% 250 ml @ 125 mls/hr IVPB Q16H RUKHSANA Rx#:[id number] Oral 720 150 580 Output: Urine 1400 1200 Other: # Voids 5 - Exam PHYSICAL EXAMINATION: GENERAL: 77-year-old female in no apparent distress at the time of my examination. HEENT: Head is atraumatic, normocephalic. Pupils equal, round. Sclera anicteric. Conjunctiva are clear. Mucous membranes of the mouth are moist. Neck is supple. There is no elevated jugular venous pressure.] bruit is heard. HEART EXAMINATION: Heart S1, S2 normal. No murmur or gallop heard. CHEST EXAMINATION: Lungs reveal diminished air entry bilaterally with fine crackles to the bases ABDOMEN: Soft, nontender. Bowel sounds are heard. No organomegaly noted. EXTREMITIES: 2+ peripheral pulses with no evidence of peripheral edema and no calf tenderness noted. NEUROLOGIC patient is awake, alert and oriented -3. . - Labs CBC & Chem 7: 01/07/18 06:24 01/07/18 06:24 Labs: Abnormal Lab Results - Last 24 Hours (Table) 01/06/18 01/06/18 01/06/18 Range/Units 11:27 16:21 20:48 RBC (3.80-5.40) m/uL Hgb (11.4-16.0) gm/dL Hct (34.0-46.0) % RDW (11.5-15.5) % Sodium (137-145) mmol/L Chloride (98-107) mmol/L BUN (7-17) mg/dL Glucose (74-99) mg/dL POC Glucose (mg/dL) 170 H 241 H 213 H (75-99) mg/dL 01/07/18 01/07/18 01/07/18 Range/Units 05:53 06:24 06:24 RBC 2.71 L (3.80-5.40) m/uL Hgb 8.2 L (11.4-16.0) gm/dL Hct 24.5 L (34.0-46.0) % RDW 17.8 H (11.5-15.5) % Sodium 135 L (137-145) mmol/L Chloride 97 L (98-107) mmol/L BUN 23 H (7-17) mg/dL Glucose 102 H (74-99) mg/dL POC Glucose (mg/dL) 105 H (75-99) mg/dL Microbiology - Last 24 Hours (Table) 01/03/18 22:10 Blood Culture - Preliminary Blood No Growth after 72 hours 01/03/18 21:48 Blood Culture - Preliminary Blood No Growth after 72 hours 01/03/18 10:31 Blood Culture - Preliminary Blood No Growth after 72 hours Assessment and Plan Plan: Assessment and plan #1 sepsis associated with underlying and pneumonia #2 non-Q-wave myocardial infarction #3 anemia of chronic disease #4 rheumatoid arthritis #5 known history of coronary artery disease with prior PCI #6 hypertension #7 hyperlipidemia #8 diabetes Plan Cardiology's perspective, patient is advised to undergo cardiac catheterization tomorrow. The risks and benefits were explained in detail willing to proceed. This will be performed by Dr. VC Stoner tomorrow. DNP note has been reviewed, I agree with a documented findings and plan of care. Patient was seen and examined.
[2018-01-07] MEDS: FERROUS SULFATE 325 MG TAB PO SCH (11:40)
[2018-01-07 11:52] LABS: Glucose,Whole Blood 138 mg/dL (75-99)
--- NOTE | 2018-01-07 14:19 | PN ---
PROGRESS NOTE 77-year-old white female. . NEW DATA: Height 5 feet 2 inches, weight 83.4 kg. BSA 1.84 m2 and BMI 33.6 kg/m2, with the underlying obesity. ALLERGIES: ETANERCEPT, LATEX, SULFA and SULFONAMIDE ANTIBIOTIC and TAPE. The patient seen today evaluated and she has only 1 complaint of her bowel movement, constipation with the current plan and program. She only has small bowel movement and she needs to feel that she is having a good bowel movement. Otherwise, she denied any shortness of breath and she denied any chest pain. She stated that the Cardiology planned for cardiac catheterization today and however the because of emergency delayed to tomorrow. Her vital sign is temperature 97.7 orally, pulse 74, respiratory rate 18, nonlabored, and her blood pressure 129/61. Her mean blood pressure 83. She is on room air 95. She had scattered cough with probability with associated bronchitis. LABORATORIES: Current laboratories was indicating her white count is 8.9 with hemoglobin 8.2 and hematocrit 24.5, and the platelet count 243, and she had underlying hypochromasia, slight and anisocytosis slight. On the chemistry, she has sodium 135, potassium 3.9, chloride 97, and her carbon dioxide is 22. Her BUN is 23, creatinine 0.84 with the estimated glomerular filtration rate for non- 68. Her blood sugar has been monitored and as well as with the POC and she has been fluctuating with the underlying steroid and between 241 and 105. This morning, her blood sugar was 102, however , before lunch 138, covered with insulin to scale. Her calcium is 8.8. The patient seen by Cardiology as well as Pulmonary and she was planned as mention for cardiac catheterization will be done tomorrow. Her echocardiogram was indicating patient has sinus rhythm and she had left ventricular systolic function severely impaired with ejection fraction 20-25. She had left atrial severely dilated more than 40 mL/m2. She has right atrium appeared to be enlarged. She had aortic valve trileaflet and she had moderate aortic regurgitation and severe mitral regurgitation and mild tricuspid regurgitation. Mild pulmonary hypertension and right ventricular pressure 40.90 mmHg. She had a physiologic pulmonary regurgitation. No pericardial effusion and the aortic root was normal. Pulmonary consultation was obtained with Dr. Ismael Valadez, who reviewed the patient and his impression acute hypoxic respiratory failure with related to multiple lobar pneumonia. She has bilateral pleural effusion related to acute heart failure. Next she had acute heart failure, acute on chronic systolic and diastolic with the associated impaired systolic function to 20-25%. Next, she has also non infectious complication like bronchiolitis obliterans occlusive pneumonia could be related in advanced rheumatoid arthritis could not be excluded, which supports the event of pulmonary hypertension and rheumatoid lung and interstitial disease related to advanced rheumatoid arthritis could not be excluded. His plan at that time to continue with IV Zosyn and Gram stain and the bilateral ultrasound and further evaluation when the pneumonia cleared up. In regard of cardiology and indicating that assessment and plan by the Cardiology group that the patient has: 1. Sepsis associated with underlying pneumonia. 2. Non-Q myocardial infarction. 3. Anemia of chronic disease. 4. Rheumatoid arthritis. 5. Coronary artery disease with a previous history of 5 stents and prior PCI. 6. Hypertension. 7. Hyperlipidemia. 8. Diabetes mellitus and the patient is supposedly scheduled for cardiac catheterization and will be done by Dr. Virgil Stoner tomorrow. 9. This dictation was done by Bertha Beal, ALLAN-C Dr. Stone. On today's examination, as mentioned before in previous progress note that she had a troponin to 0.160 and with the underlying changes in the EKG. However, the changes was reviewed as well by Dr. Ferraro, who stated that the patient had acute inferior myocardial infarction. BUT NO Q WAVE abnormalites Her vitamin B12 level was normal 614. Folate was 13 and this test was done as patient was using methotrexate and with the underlying possibility of decreased anemia also. We have the serum ferritin 69.8, which was normal. Her hemoglobin A1c was 6 and her magnesium is 2 and the CK was high 244. Her total cholesterol 124 with HDL 53, and normal liver enzymes. As mentioned, her blood pressure currently is very well controlled and no evidence of dysrhythmia and no specific complaint at this time. She had a CT scan on admission with angiogram to rule out PE by the ER and was negative. The result was negative. PHYSICAL EXAMINATION: Patient conscious, alert, oriented x3. Able to communicate freely. Denied any chest pain or shortness of breath today. HEENT: The head was normocephalic, atraumatic. Pupils equal, reactive. Conjunctivae was pale and sclerae nonicteric. The oropharynx was normal. Uvula midline. Normal swallowing. Hearing was normal. Neck was supple. No lymphadenopathy. No thyromegaly. Trachea midline. The chest was clear to auscultation on the upper lung field. In the lower lung staley, she had inspiratory dry rhonchi with the crepitus with deep inspiration and was related probably to pulmonary fibrosis versus rheumatoid arthritis lung. The underlying multilobar pneumonia and she is on antibiotic and last chest x-ray was done on the 15 and will be obtaining another chest x-ray. The chest x- ray was done on the 01/04/2018 indicating that improvement in bilateral airspace disease. No pneumothorax. We will repeat the chest x-ray for the followup. The heart was regular sinus rhythm. However, these drop in her echocardiogram for ejection fraction with the ischemic cardiomyopathy that is considered and with the acute congestive heart failure was mainly systolic on the top of diastolic and systolic. IMPRESSION: 1. She had acute respiratory failure. 2. She has no edema of the lower extremities and no JVD. 3. She had chronic constipation. 4. Hypertension and hypertensive heart disease is currently controlled. 5. She hasNONQMI myocardial infarction, inferior myocardial infarction with the changes in the inferior lead as well as the elevated troponin and the drop in the ejection fraction . 6. Otherwise the lung that she had probable bronchiolitis. Underlying rheumatoid lung and otherwise with the rheumatoid arthritis. 7. Diabetes mellitus, and hemoglobin A1c 6 and currently fairly well controlled. However, fluctuation with the steroid. 8. She had initially pleural effusion and the test for the ultrasound and that was indicating that she had a bilateral pleural effusion demonstrated. However , it was small enough not to need further treatment as she is diuresed with the consideration from the congestive heart failure. 9. Ischemic cardiomyopathy with the ejection fraction of 20-25% by echocardiogram. PLAN: We will continue current treatment. Waiting for the cardiac catheterization and depend on the result of cardiac cath. Further treatment depends on the results of the cardiac catheterization. MMODL / IJN: [id number] / SHILPA
--- NOTE | 2018-01-07 14:42 | XR ---
EXAMINATION TYPE: XR chest 2V DATE OF EXAM: 01/07/2018 COMPARISON: 01/04/2018 TECHNIQUE: PA and lateral views submitted. HISTORY: Shortness of breath FINDINGS: Diffuse interstitial pattern seen with small bilateral effusions and cardiomegaly. Postsurgical noel e overlying the cervical spine and right shoulder. No pneumothorax. Atherosclerotic change aorta. Coronary stenting and previous surgery in the gallbladder fossa noted. Degenerative change of the spine. IMPRESSION: 1. Bilateral small effusions with interstitial pattern correlate for CHF.
[2018-01-07] MEDS: POLYETHYLENE GLYCOL 3350 17 GM POWD.PACK PO SCH (15:58)
[2018-01-07 16:28] LABS: Glucose,Whole Blood 323 mg/dL (75-99)
[2018-01-07] MEDS: ATORVASTATIN 80 MG TAB PO SCH (20:04)
[2018-01-07] MEDS: LORazepam 0.5 MG TAB PO SCH ×2 (20:04→20:53)
[2018-01-07 20:28] LABS: Glucose,Whole Blood 228 mg/dL (75-99)
[2018-01-07] MEDS: INSULIN DETEMIR 100 UNIT/ML 10 ML VIAL SQ SCH (20:30)
[2018-01-08] MEDS: VANCOMYCIN 1,500 MG in SODIUM CHLORIDE 0.9% 250 ML IVPB SCH ×2 (03:20→21:09)
[2018-01-08 05:52] LABS: Glucose,Whole Blood 141 mg/dL (75-99)
[2018-01-08] MEDS: ASPIRIN 81 MG PO SCH (06:21)
[2018-01-08] MEDS: ATENOLOL 50 MG TAB PO SCH ×2 (06:29→21:18)
[2018-01-08] MEDS: PIPERACILLIN-TAZOBACTAM 3.375 GM in DEXTROSE/WATER 1 50ML.BAG IVPB SCH ×2 (06:29→16:02)
[2018-01-08] MEDS: FUROSEMIDE 10 MG/ML 4 ML VIAL IV SCH (06:29)
[2018-01-08] MEDS: PANTOPRAZOLE 40 MG TABLET PO SCH (06:29)
[2018-01-08] MEDS: CEVIMELINE 30 MG CAP PO SCH ×2 (06:30→21:18)
[2018-01-08] MEDS: buPROPion XL 300 MG TAB.ER.24H PO SCH (06:30)
[2018-01-08] MEDS: GABAPENTIN 300 MG CAP PO SCH ×3 (06:30→21:18)
[2018-01-08] MEDS: AZITHROMYCIN 500 MG TAB PO SCH (06:30)
[2018-01-08] MEDS: DULoxetine HCL 30 MG CAPSULE.DR PO SCH (06:30)
[2018-01-08] MEDS: LORATADINE 10 MG TAB PO SCH (06:30)
[2018-01-08] MEDS: valACYclovir 500 MG TAB PO SCH (06:31)
[2018-01-08] MEDS: methylPREDNISolone SOD SUCCI 40 MG/ML 1 ML VIAL IV SCH (06:31)
[2018-01-08] MEDS: MEMANTINE 10 MG TAB PO SCH ×2 (06:31→21:18)
[2018-01-08] MEDS: INSULIN ASPART 100 UNIT/ML 1 ML 10 ML VIAL SQ SCH ×4 (06:31→21:19)
[2018-01-08] MEDS: SENNOSIDES-DOCUSATE SODIUM 1 EACH TAB PO SCH ×2 (06:31→21:18)
[2018-01-08 06:32] LABS: Potassium 4.2 mmol/L (3.5-5.1)
[2018-01-08] MEDS: POLYETHYLENE GLYCOL 3350 17 GM POWD.PACK PO SCH (06:35)
[2018-01-08] MEDS: IPRATROPIUM-ALBUTEROL 3 ML NEB INHALATION SCH ×3 (08:02→20:44)
[2018-01-08] MEDS ORDERED: ATORVASTATIN 80 MG TAB PO ONE (09:00)
[2018-01-08] MEDS ORDERED: ASPIRIN 325 MG TAB PO ONE (09:00)
[2018-01-08 11:37] LABS: Glucose,Whole Blood 155 mg/dL (75-99)
[2018-01-08] MEDS ORDERED: IV FLUID CONTINUATION 150 ML IV ONE (11:57)
[2018-01-08] MEDS ORDERED: SODIUM CHLORIDE 0.9% 500 ML IV ONE (11:57)
[2018-01-08] MEDS ORDERED: fentaNYL (PF) 50 MCG/ML 2 ML AMP ONE (12:13)
[2018-01-08] MEDS ORDERED: fentaNYL (PF) 50 MCG/ML 2 ML AMP IV ONE ×2 (12:18)
[2018-01-08] MEDS ORDERED: LIDOCAINE 2% SYG (PF) 100 MG/5 ML MISCELLANE ONE (12:26)
[2018-01-08] MEDS ORDERED: LIDOCAINE 2% INJ 20 MG/ML SQ ONE (12:26)
[2018-01-08] MEDS ORDERED: MIDAZOLAM 2 MG/2 ML VIAL ONE (12:27)
[2018-01-08] MEDS ORDERED: MIDAZOLAM 2 MG/2 ML VIAL IV ONE (12:29)
[2018-01-08] MEDS ORDERED: CLOPIDOGREL 75 MG TAB ONE ×2 (12:51→12:55)
[2018-01-08] MEDS ORDERED: BIVALIRUDIN BOLUS 250 MG/50 ML IV ONE (12:52)
[2018-01-08] MEDS ORDERED: BIVALIRUDIN 250 MG in SODIUM CHLORIDE 0.9% 50 ML IV ONE (12:52)
[2018-01-08] MEDS ORDERED: CLOPIDOGREL 75 MG TAB PO ONE (12:59)
[2018-01-08] MEDS ORDERED: IOPAMIDOL-370 125ML BTL INJ ONE (13:12)
[2018-01-08] MEDS ORDERED: IOPAMIDOL-370 100ML BTL INJ ONE (13:13)
--- NOTE | 2018-01-08 13:17 | CC ---
CARDIAC CATHETERIZATION REPORT She is a 77-year-old female, who was admitted with symptoms of shortness of breath. The patient was treated for heart failure and pneumonia. Patient was found to have EKG changes with ST-segment depression in the lateral leads and T-wave inversions in the inferior leads. Patient's EKG was suggestive of possible old inferior wall myocardial infarction. Echocardiogram revealed ejection fraction of 20% to 25%. The patient had a troponin elevation of 2.1. The patient also has history of evidence of anemia which appears to be iron-deficiency anemia. In view of the abnormal troponin and impaired LV systolic function, patient was advised further evaluation with a cardiac catheterization. Patient has had prior history of stent to the LAD as well as the right coronary artery. PROCEDURE: The right groin was prepped and draped in the usual manner and the skin is infiltrated with 2% Xylocaine. The right femoral artery was entered using Seldinger technique and #6-Arabic sheath was placed in. Selective coronary angiography was then performed in multiple projections. The left ventricular pressures were obtained. The patient tolerated the procedure well. HEMODYNAMICS: Left ventricular end-diastolic pressure is 32 to 36 mmHg. No gradient is noted across the aortic valve. SELECTIVE CORONARY ANGIOGRAPHY: Left main coronary artery is normally patent. LAD has a long area of stented segment in the proximal and mid portion. There is mild diffuse disease in the stented segment but without any hemodynamically significant stenosis and this is unchanged from the previous cath. The distal LAD in the lower one- third has a 70% stenosis. Circumflex coronary artery is a good caliber blood vessel, nondominant in distribution. The obtuse marginal branch has a long area of 60% stenosis, which is unchanged from before. Right coronary artery is a large caliber blood vessel. There is a stent in the proximal and mid right coronary artery. At the proximal edge of the stent, there is 90% stenosis. The distal area of stented segment looks normal. FINAL IMPRESSION: This study reveals a 90% stenosis in the proximal edge of the stented segment in the right coronary artery. The stent in the left anterior descending artery has mild diffuse disease with 30% to 40% stenosis which is unchanged from before. The obtuse marginal branch has a long area of 60% stenosis. RECOMMENDATIONS: Films were reviewed with Dr. Valenzuela and will proceed with a stent to the RCA. Further workup for patient's anemia is suggested, iron transfusion is suggested. MMODL / IJN: [id number] /
[2018-01-08] MEDS ORDERED: RX INFO: IV CONTRAST WAS GIVEN 1 EACH MISC MISCELLANE PRN (13:25)
[2018-01-08] MEDS ORDERED: ZOLPIDEM 5 MG TAB PO PRN (13:25)
[2018-01-08] MEDS ORDERED: NITROGLYCERIN SL TABS 0.4 MG TAB SUBLINGUAL PRN (13:25)
[2018-01-08] MEDS ORDERED: MAG HYDROX/AL HYDROX/SIMETH 30 ML CUP PO PRN (13:25)
[2018-01-08] MEDS ORDERED: ATROPINE SULFATE 0.1 MG/ML 10ML SYRINGE IV PRN (13:25)
[2018-01-08] MEDS ORDERED: SODIUM CHLORIDE 0.9% 1,000 ML IV SCH (13:30)
--- NOTE | 2018-01-08 13:44 | PTCA ---
PERCUTANEOUSTRANS CORORONARY ANGIOGRAPHY Ms. Zazueta is a 77-year-old female with a known history of coronary artery disease who presented with pneumonia, CHF and elevation of troponin. She was evaluated by Dr. Ferraro. Subsequently underwent cardiac catheterization by Dr. Virgil Stoner and was found to have significant stenosis involving the proximal right coronary artery in a calcified segment. In view of that, recommendation made regarding coronary angioplasty and stenting. The procedure as well as risks and complications were discussed with the patient who is in full understanding and agreement. PROCEDURE: A 6-Luxembourgish FR4 guiding catheter was introduced into the system. After cannulating the right coronary ostium, a 0.014 whisper J-wire was advanced across the lesion, positioned distally. Then a 2.5 x 12 mm Trek balloon was advanced and inflation at 10 atmospheres were done. Following that, the balloon was removed and a 2.5 x 15 mm Xience Alpine stent was deployed, it was dilated at 18 atmospheres. Following that, the balloon was removed and a 2.75 x 12 mm NC Trek balloon was advanced and one inflation at 14 atmospheres was done. After the last inflation, after appropriate wait, the balloon and the guidewire were withdrawn back in the guiding catheter. Images were obtained and repeated. Those images reveal stable successful stenting. At that point, the guiding catheter, the balloon and the guidewire were removed. The sheath was removed. Hemostasis was obtained with deployment of an Angio-Seal. There was no immediate complication. The patient is returned to her room in stable condition. Of note, the patient had no chest discomfort or EKG changes with the inflations. She received Angiomax per protocol as well as oral loading dose of clopidogrel. RESULTS: Successful stenting of the proximal right coronary artery with reduction of stenosis from 99% to 0%. RECOMMENDATION: Patient will be continued on aspirin, Plavix, beta faith, ROBERT inhibitor, statins. The importance of dual antiplatelet treatment were discussed with the patient and her family who are in full understanding and agreement. Duration of procedure: 24 minutes. MMODL / IJN: [id number] /
--- NOTE | 2018-01-08 13:47 | LTR ---
DATE OF SERVICE: 01/08/[address] Garcia: I had the pleasure of performing coronary angioplasty and stenting on Mrs. Zazueta at [facility] on January 08. A full copy of procedure note will be forwarded to you. In brief, she was found to have critical stenosis in the proximal right coronary artery. She underwent successful stenting of that vessel using a drug-eluting stent. I am hopeful that this procedure will stabilize her status. Thank you again for allowing me to participate in her care. Please feel free to call with any questions. Sincerely, BLANK / ROXANN: [id number] /
--- NOTE | 2018-01-08 13:58 | P.PN ---
Subjective Progress Note Date: 01/08/18 Principal diagnosis: Bilateral pneumonia, acute hypoxic respirator failure, non-infectious pneumonia like bronchiolitis obliterans occlusive pneumonia cannot be excluded, acute hypoxic respirator failure, bilateral pleural effusion, congestive heart failure likely acute systolic heart failure, coronary artery disease, non-ST segment elevated CO 09/10/2017, patient seen eval examined during the rounds patient is status post cardiac cath angiogram and another stent has been placed, from [facility] standpoint patient has been doing better denies any cough or sputum production chest x-ray performed yesterday reviewed care plan discussed with the cardiovascular services as well as primary services as well, for now we'll maintain patient on once a day Solu-Medrol along with antibiotics however they can be switched to oral agree with monitoring observing and maximize aeration of medical therapy for now patient does not appear to be ready for discharge for another 48-72 hours until more significant response has been seen of therapy 01/07/2018, patient seen eval examined during the rounds clinically patient has been doing slightly better in terms of breathing denies any cough or sputum production patient remains on broad-spectrum antibiotics and IV steroids tolerating well her to cath and angiogram has been postponed for tomorrow, patient appears to be responding well with IV steroids breathing treatments and antibiotics along with gentle diuresis will lowered down the Solu-Medrol to once daily today 01/06/2018, patient seen and evaluated examined during the rounds has been getting IV steroids antibiotics with significant improvement in respiratory status cardiovascular services following planning for cath and angiogram likely tomorrow labs reviewed medications reviewed care plan discussed with the patient at length 77-year-old female who was seen eval reexamined as per request of Dr. Garcia, patient is a nonsmoker but does have a history of complex and multiple medical problems and issues she is been complaining of increasing shortness of breath especially on exertion for last 1-1/2 month and last few weeks it got to a point that with activity and exertion she had to sit due to severe degree of dyspnea, patient was seen in the emergency department about a week ago was discharged now came back again and presented this time and emergency department earlier this morning with problems associated with bilateral chest discomfort more so on the left side feeling of generalized aches pains fatigue and some chest and back discomfort as well, patient has been admitted into the hospital a computed tomography scan of the chest was performed which I have reviewed Her history is significant for advanced rheumatoid arthritis for which she is on methotrexate once a week and Xeljanz 5 mg 2 times a day, her last use of oral prednisone was somewhere about a month to 2 months ago, her history is significant for coronary artery disease and angina history of TIAs type 2 diabetes mellitus deep venous thrombosis chronic fibromyalgia dyslipidemia hypertension hypertensive cardiovascular disease Objective - Vital Signs Vital signs: Vital Signs Temp 98.3 F 01/08/18 08:54 Pulse 70 01/08/18 13:45 Resp 16 01/08/18 13:45 BP 113/55 01/08/18 13:30 Pulse Ox 93 L 01/08/18 13:30 Intake & Output 01/07/18 01/08/18 01/08/18 18:59 06:59 18:59 Intake Total 1180 120.71 Output Total 1500 925 Balance -320 -925 120.71 Weight 82.3 kg Intake: IV 120.71 Oral 1180 Output: Urine 1500 925 Other: Voiding Method Toilet Toilet # Voids 1 - Exam General appearance: alert, in no apparent distress Head exam: Present: atraumatic Eye exam: Present: normal appearance, PERRL ENT exam: Present: normal oropharynx Neck exam: Present: normal inspection Respiratory exam: Present: Good bilateral air entry is present without any significant reason rhonchi or rub Cardiovascular Exam: Present: tachycardia GI/Abdominal exam: Present: soft. Absent: tenderness Extremities exam: Present: normal inspection. Absent: pedal edema, calf tenderness, examination the hand revealed finding consistent with advanced rheumatoid arthritis Back exam: Present: normal inspection. Absent: tenderness Neurological exam: Present: alert Psychiatric exam: Present: normal affect, normal mood Skin exam: Present: normal color - Labs CBC & Chem 7: 01/07/18 06:24 01/08/18 05:40 Labs: Abnormal Lab Results - Last 24 Hours (Table) 01/07/18 01/07/18 01/08/18 Range/Units 16:10 20:26 05:40 Sodium 135 L (137-145) mmol/L BUN 30 H (7-17) mg/dL Glucose 119 H (74-99) mg/dL POC Glucose (mg/dL) 323 H 228 H (75-99) mg/dL 01/08/18 01/08/18 Range/Units 05:49 11:34 Sodium (137-145) mmol/L BUN (7-17) mg/dL Glucose (74-99) mg/dL POC Glucose (mg/dL) 141 H 155 H (75-99) mg/dL Microbiology - Last 24 Hours (Table) 01/03/18 10:31 Blood Culture - Preliminary Blood No Growth after 120 hours 01/05/18 20:39 Gram Stain - Final Sputum Sputum Culture - Final 01/03/18 22:10 Blood Culture - Preliminary Blood No Growth after 96 hours 01/03/18 21:48 Blood Culture - Preliminary Blood No Growth after 96 hours Assessment and Plan Assessment: Acute hypoxic respiratory failure related to multi lobar pneumonia Bilateral pleural effusion likely related to acute heart failure Coronary artery disease and acute non-ST segment elevated CO, status post stent and LAD for details please refer to dictated report of cardiac cath angiogram performed earlier this morning Acute heart failure suspect acute on chronic systolic and/or diastolic heart failure Noninfectious complication like bronchiolitis obliterans occlusive pneumonia related to advanced rheumatoid arthritis cannot be excluded Suspect presence of pulmonary hypertension Rheumatoid lung and interstitial lung disease related to advanced rheumatoid arthritis cannot be excluded however patient needs to be evaluated once pneumonia clears up with a high resolution computed tomography scan which will be arranged on outpatient setting Plan: Agree with workup and therapy of heart failure with echocardiogram and cardiovascular evaluation, with cardiac cath and angiogram with findings as noted above Would maintain patient on IV steroids with Solu-Medrol along with broad- spectrum antibiotics as however can be switched to oral like Augmentin 875 twice a day Sputum for Gram stain and culture Further evaluation of rheumatoid lung once pneumonia clears up Follow clinical course closely patient could benefit from bronchoscopy and transbronchial lung biopsy once more stable and if infiltrate do not clear Further recommendations pending plan of care as per clinical response of the patient Time with Patient: Greater than 30
[2018-01-08 14:10] LABS: Glucose,Whole Blood 170 mg/dL (75-99)
[2018-01-08] MEDS: HYDROcodone/APAP 10-325MG 1 EACH TAB PO PRN ×2 (15:01→21:28)
[2018-01-08] MEDS: FERROUS SULFATE 325 MG TAB PO SCH (15:02)
[2018-01-08] MEDS: FUROSEMIDE 20 MG TAB PO SCH ×2 (16:02→17:31)
[2018-01-08 17:16] LABS: Glucose,Whole Blood 228 mg/dL (75-99)
--- NOTE | 2018-01-08 18:12 | P.PN ---
Subjective Progress Note Date: 01/08/18 Principal diagnosis: Non-STEMI HI involving proximal right coronary artery, associated successful stenting and the reduction of stenosis from 99-0% done by Dr. Valenzuela, manufacturing quality engineer. Her primary lawn care specialist is Dr. Valdovinos, patient presented to his congestive heart failure, chest pressure, elevated troponin, elevated BNP. With no evidence of Q waves which is a final diagnosis non-STEMI inferior wall HI. She has anemia mixed picture with the underlying anemia of chronic disease as well as iron deficiency with low iron saturation and low iron, patient will be receiving iron infusion started tomorrow 125 mg IV piggyback once a day for 2 days on the monitor. Patient seen by critical care and pulmonary Dr. 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 Ismael Valadez, patient on steroid minimal dose IV and future plan to change to oral, patient on antibiotic which including Zosyn IV piggyback, vancomycin, azithromycin, lost chest x-ray there is no evidence at this time is infiltrate indicating that has been resolved. Cardiac cath done today on 01/08/2018 with the stent successful in the proximal right coronary artery with reduction of the stenosis from 99-0%. Her laboratory her today lab is a sodium 135 potassium 4.2 chloride 98 carbon dioxide 22 BUN of 30 creatinine 0.9 and blood sugar 119 her serum B12 614 serum folate 13 and serum ferritin 69.8. Her hemoglobin on 8.2 with the hematocrit 24.5 On the physical exam: Her temperature 96.9 pulse is 64 per minute regular., Respiratory rate 18 and blood pressure is stable 127/61 and 133/63 with the oxygen saturation 97%. Patient had CT angiogram on admission and was indicating no PE, ultrasound of the chest showed that she had effusion however his medical from the congestive heart failure. And her echocardiogram indicating ejection fraction 20-25% with the underlying global hypokinesia and ischemic cardiomyopathy with a history of prior 5 stenting to the coronary arteries. HEENT was negative, she had a. Conjunctiva and the mucous membrane with bandemia. We did send for stool for Hemoccults. And plan for the iron transfusion. Tomorrow. Neck was supple no JVD no thyromegaly no lymphadenopathy trachea midline. Chest currently is clear to auscultation and percussion and yesterday chest x- ray indicating small bilateral pleural effusion associated with the congestive heart failure no pneumonia, which explain that probably resulted with the antibiotic however patient had currently laryngitis with a loss of voice and probably with the associated bronchiolitis from rheumatoid lung. Heart was regular sinus rhythm and the blood pressure has been stable. Abdomen soft positive bowel sounds no tenderness. Extremities severe generalized weakness unable to carry herself by her legs and need significant rehabilitation probably may need rehab at [facility] or medical [place] [facility] and we will be consulting the office the social service and the supply chain planner. Neurologically: No lateralizing sign., No neuro deficit, she had right leg discomfort however she had the cardiac cath through the right femoral vessels. 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 #2 acute inferior myocardial infarction complicated with congestive heart failure, elevated troponin, elevated pro-bnp. And shortness of breath. #3 bilateral multilobar lung infiltrate with the associated pneumonia treated with the antibiotic IV. 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 And treated with a steroid IV. #5 severe anemia with the mixed picture associated with chronic disease and iron deficiency, patient will be transfused iron tomorrow for 2 doses. #6 rheumatoid arthritis advanced with the immunosuppressed secondary to xeljans and the methotrexate #7 normal vitamin B12 level and folic acid and homocysteine and Malonic acid. #8 severe cardiomyopathy with the underlying ejection fraction of 20-25% which has been dropped on this admission from previous echo. Patient had today the cardiac cath and stent placement, will be infused her with iron tomorrow and day after and will continue rehab and will consult social service for custodial rehabilitation for reconditioning. Dr. Ismael Valadez will assess her pneumonia and antibiotic as well and the steroid. Objective - Vital Signs Vital signs: Vital Signs Temp 97.7 F 01/08/18 16:00 Pulse 72 01/08/18 16:30 Resp 16 01/08/18 16:30 BP 123/63 01/08/18 16:30 Pulse Ox 95 01/08/18 16:30 Intake & Output 01/07/18 01/08/18 01/08/18 18:59 06:59 18:59 Intake Total 1180 120.71 Output Total 1500 925 Balance -320 -925 120.71 Weight 82.3 kg Intake: IV 120.71 Oral 1180 Output: Urine 1500 925 Other: Voiding Method Toilet Toilet # Voids 1 - Labs CBC & Chem 7: 01/07/18 06:24 01/08/18 05:40 Labs: Abnormal Lab Results - Last 24 Hours (Table) 01/07/18 01/08/18 01/08/18 Range/Units 20:26 05:40 05:49 Sodium 135 L (137-145) mmol/L BUN 30 H (7-17) mg/dL Glucose 119 H (74-99) mg/dL POC Glucose (mg/dL) 228 H 141 H (75-99) mg/dL 01/08/18 01/08/18 01/08/18 Range/Units 11:34 13:58 17:00 Sodium (137-145) mmol/L BUN (7-17) mg/dL Glucose (74-99) mg/dL POC Glucose (mg/dL) 155 H 170 H 228 H (75-99) mg/dL Microbiology - Last 24 Hours (Table) 01/03/18 10:31 Blood Culture - Preliminary Blood No Growth after 120 hours 01/05/18 20:39 Gram Stain - Final Sputum Sputum Culture - Final 01/03/18 22:10 Blood Culture - Preliminary Blood No Growth after 96 hours 01/03/18 21:48 Blood Culture - Preliminary Blood No Growth after 96 hours
[2018-01-08 20:33] LABS: Glucose,Whole Blood 175 mg/dL (75-99)
[2018-01-08] MEDS: ATORVASTATIN 80 MG TAB PO SCH (21:18)
[2018-01-08] MEDS: INSULIN DETEMIR 100 UNIT/ML 10 ML VIAL SQ SCH (21:19)
[2018-01-08] MEDS: LORazepam 0.5 MG TAB PO SCH (21:28)
[2018-01-09] MEDS: PIPERACILLIN-TAZOBACTAM 3.375 GM in DEXTROSE/WATER 1 50ML.BAG IVPB SCH ×2 (00:11→07:45)
[2018-01-09 06:04] LABS: Glucose,Whole Blood 141 mg/dL (75-99)
[2018-01-09] MEDS: PANTOPRAZOLE 40 MG TABLET PO SCH (06:10)
[2018-01-09] MEDS: INSULIN ASPART 100 UNIT/ML 1 ML 10 ML VIAL SQ SCH ×4 (06:10→21:15)
[2018-01-09] MEDS: FERROUS SULFATE 325 MG TAB PO SCH (07:43)
[2018-01-09] MEDS: buPROPion XL 300 MG TAB.ER.24H PO SCH (07:43)
[2018-01-09] MEDS: LORATADINE 10 MG TAB PO SCH (07:43)
[2018-01-09] MEDS: valACYclovir 500 MG TAB PO SCH (07:43)
[2018-01-09] MEDS: DULoxetine HCL 30 MG CAPSULE.DR PO SCH (07:44)
[2018-01-09] MEDS: CLOPIDOGREL 75 MG TAB PO SCH (07:44)
[2018-01-09] MEDS: CEVIMELINE 30 MG CAP PO SCH ×2 (07:44→20:05)
[2018-01-09] MEDS: GABAPENTIN 300 MG CAP PO SCH ×3 (07:44→20:05)
[2018-01-09] MEDS: FUROSEMIDE 20 MG TAB PO SCH (07:44)
[2018-01-09] MEDS: AZITHROMYCIN 500 MG TAB PO SCH (07:44)
[2018-01-09] MEDS: ATENOLOL 50 MG TAB PO SCH (07:44)
[2018-01-09] MEDS: methylPREDNISolone SOD SUCCI 40 MG/ML 1 ML VIAL IV SCH (07:45)
[2018-01-09] MEDS: SENNOSIDES-DOCUSATE SODIUM 1 EACH TAB PO SCH ×2 (07:45→20:05)
[2018-01-09] MEDS: ASPIRIN 81 MG PO SCH (07:45)
[2018-01-09] MEDS: POLYETHYLENE GLYCOL 3350 17 GM POWD.PACK PO SCH (07:45)
[2018-01-09] MEDS: MEMANTINE 10 MG TAB PO SCH ×2 (07:45→20:05)
[2018-01-09] MEDS: IPRATROPIUM-ALBUTEROL 3 ML NEB INHALATION SCH ×3 (08:32→19:19)
[2018-01-09] MEDS ORDERED: LISINOPRIL 5 MG TAB PO SCH (09:00)
[2018-01-09] MEDS ORDERED: VANCOMYCIN TROUGH DUE 1 EACH MISC MISCELLANE ONE (09:00)
[2018-01-09] MEDS ORDERED: FUROSEMIDE 10 MG/ML 2 ML VIAL IV SCH (09:00)
--- NOTE | 2018-01-09 09:39 | P.PN ---
Subjective Progress Note Date: 01/09/18 Principal diagnosis: Non-Q MA acute inferior status post cardiac cath and stent in the right coronary artery proximal "". Acute respiratory failure resolved Bilateral infiltrate with underlying bronchitis and laryngitis. Rheumatoid arthritis Deconditioning with inability to walk need for rehabilitation. Diabetes mellitus2 on insulin to scale. Hypertension with hypertensive heart disease, blood pressure is controlled. Ischemic cardiomyopathy with ejection fraction 20-25%. 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 Fever on admission associated with the above. Blood culture negative Sputum culture negative. Bilateral small pleural effusion associated with congestive heart failure acute systolic dysfunction. Anemia secondary chronic disease as well as iron deficiency, iron infusion once a day for 2 days ordered. Dictation on the progress note dictated 01/09/[address] miguel Ewing [facility] Patient seen today evaluated [id number] she denied any chest pain, no anginal pain. She is status post PCI angioplasty and stent placement in the proximal right coronary artery on the date of 01/08/[address] Valenzuela. Patient denied any abdominal pain and she is taking medication for constipation and she is started to have small bowel movement. Vital sign 97.7 temperature pulse 72/m regular, respiratory rate 16 nonlabored. Blood pressure 116/63. Conscious alert oriented 3. She is pale with the iron deficiency she will be transfused iron infusion today. Patient need rehab the future planning for [facility]/medical [place] for rehabilitation. HEENT normal no changes. Neck was supple no JVD no thyromegaly no lymphadenopathy. Chest is irradiated, she is coughing, she has a loss of voice with harsh with the associated laryngitis, blood culture was negative sputum culture also was negative with the probably viral. Dr. Ismael Valadez pulmonary and critical is following the patient as well. Lost chest x-ray did not indicate for further pneumonia. She has minimal small effusion, patient on diuretics. Heart regular sinus rhythm with the underlying history of congestive heart failure and progressively improving. And no chest pain. The abdomen is soft positive bowel sounds and no tenderness and she has some discomfort due to coughing and using her lips and radiated to the upper abdominal area. Extremities no edema and positive pulses. However she is unable to ambulate with a few steps to the bathroom and need for rehabilitation. Neurologically stable no lateralizing sign no neuro deficit. Assessment and plan: Will obtain laboratory tomorrow, lab today was not available at the time of dictation. And will monitor her hemoglobin and hematocrit and consult director of social work for planning of discharge, Patient will be transfused iron infusion 1 today and 1 tomorrow. Further pulmonary evaluation and advice will be obtained from Dr. Ismael Valadez pulmonary and critical. And the cardiology doctor Bonifacio. Objective - Vital Signs Vital signs: Vital Signs Temp 97.7 F 01/09/18 07:55 Pulse 72 01/09/18 08:46 Resp 16 01/09/18 07:55 BP 110/62 01/09/18 07:55 Pulse Ox 95 01/09/18 07:55 Intake & Output 01/08/18 01/09/18 01/09/18 18:59 06:59 18:59 Intake Total 120.71 236 Balance 120.71 236 Weight 83.1 kg Intake: IV 120.71 Oral 236 Other: Voiding Method Toilet Toilet Toilet # Voids 1 - Labs CBC & Chem 7: 01/07/18 06:24 01/08/18 05:40 Labs: Abnormal Lab Results - Last 24 Hours (Table) 01/08/18 01/08/18 01/08/18 Range/Units 11:34 13:58 17:00 POC Glucose (mg/dL) 155 H 170 H 228 H (75-99) mg/dL 01/08/18 01/09/18 Range/Units 20:32 06:02 POC Glucose (mg/dL) 175 H 141 H (75-99) mg/dL Microbiology - Last 24 Hours (Table) 01/03/18 22:10 Blood Culture - Preliminary Blood No Growth after 120 hours 01/03/18 21:48 Blood Culture - Preliminary Blood No Growth after 120 hours 01/03/18 10:31 Blood Culture - Preliminary Blood No Growth after 120 hours 01/05/18 20:39 Gram Stain - Final Sputum Sputum Culture - Final
[2018-01-09 09:45] LABS: Anisocytosis Slight; Basophils % (A) 0 %; Eosinophils # (A) 0.1 k/uL (0-0.7); Eosinophils % (A) 1 %; HCT 25.3 % (34.0-46.0); HGB 8.1 gm/dL (11.4-16.0); Hypochromasia Slight; Lymphocytes # (A) 1.4 k/uL (1.0-4.8); Lymphocytes % (A) 15 %; MCH 29.4 pg (25.0-35.0); MCHC 31.8 g/dL (31.0-37.0); MCV 92.3 fL (80.0-100.0); Mean Platelet Volume 7.7; Monocytes # (A) 0.9 k/uL (0-1.0); Monocytes % (A) 9 %; Neutrophils # (A) 6.5 k/uL (1.3-7.7); Neutrophils % (A) 71 %; Platelet Count 266 k/uL (150-450); RBC 2.74 m/uL (3.80-5.40); RDW 17.9 % (11.5-15.5); WBC 9.2 k/uL (3.8-10.6)
[2018-01-09 09:52] LABS: Calcium 8.8 mg/dL (8.4-10.2); Potassium 3.6 mmol/L (3.5-5.1)
[2018-01-09] MEDS: VANCOMYCIN 1,500 MG in SODIUM CHLORIDE 0.9% 250 ML IVPB SCH (10:20)
[2018-01-09] MEDS: CARVEDILOL 6.25 MG TAB PO SCH ×2 (11:19→15:54)
[2018-01-09] MEDS: SPIRONOLACTONE 25 MG TAB PO SCH (11:19)
[2018-01-09 11:27] LABS: Glucose,Whole Blood 277 mg/dL (75-99)
[2018-01-09] MEDS: SODIUM FERRIC GLUCONAT-SUCROSE 125 MG in SODIUM CHLORIDE 0.9% 100 ML IVPB SCH (12:36)
--- NOTE | 2018-01-09 14:10 | P.PN ---
Subjective Progress Note Date: 01/09/18 Principal diagnosis: Bilateral pneumonia, acute hypoxic respirator failure, non-infectious pneumonia like bronchiolitis obliterans occlusive pneumonia cannot be excluded, acute hypoxic respirator failure, bilateral pleural effusion, congestive heart failure likely acute systolic heart failure, coronary artery disease, non-ST segment elevated OK 01/09/2018, patient seen eval examined during the rounds clinically patient has been doing well awake and alert breathing comfortably still get short of breath on activity and exertion patient has been tolerating his steroids and antibiotics fairly well labs reviewed medications reviewed recent chest x-ray reviewed as well, the culture results and reports are reviewed blood cultures 3 and negative sputum Gram stain no significant predominance of any organism is seen final culture results are pending would recommend to switch antibiotics and DC the Vanco and Zosyn and simply use Augmentin along with Zithromax, would continue IV Solu-Medrol once daily for now 01/08/2018, patient seen eval examined during the rounds patient is status post cardiac cath angiogram and another stent has been placed, from [facility] standpoint patient has been doing better denies any cough or sputum production chest x-ray performed yesterday reviewed care plan discussed with the cardiovascular services as well as primary services as well, for now we'll maintain patient on once a day Solu-Medrol along with antibiotics however they can be switched to oral agree with monitoring observing and maximize aeration of medical therapy for now patient does not appear to be ready for discharge for another 48-72 hours until more significant response has been seen of therapy 01/07/2018, patient seen eval examined during the rounds clinically patient has been doing slightly better in terms of breathing denies any cough or sputum production patient remains on broad-spectrum antibiotics and IV steroids tolerating well her to cath and angiogram has been postponed for tomorrow, patient appears to be responding well with IV steroids breathing treatments and antibiotics along with gentle diuresis will lowered down the Solu-Medrol to once daily today 01/06/2018, patient seen and evaluated examined during the rounds has been getting IV steroids antibiotics with significant improvement in respiratory status cardiovascular services following planning for cath and angiogram likely tomorrow labs reviewed medications reviewed care plan discussed with the patient at length 77-year-old female who was seen eval reexamined as per request of Dr. Garcia, patient is a nonsmoker but does have a history of complex and multiple medical problems and issues she is been complaining of increasing shortness of breath especially on exertion for last 1-1/2 month and last few weeks it got to a point that with activity and exertion she had to sit due to severe degree of dyspnea, patient was seen in the emergency department about a week ago was discharged now came back again and presented this time and emergency department earlier this morning with problems associated with bilateral chest discomfort more so on the left side feeling of generalized aches pains fatigue and some chest and back discomfort as well, patient has been admitted into the hospital a computed tomography scan of the chest was performed which I have reviewed Her history is significant for advanced rheumatoid arthritis for which she is on methotrexate once a week and Xeljanz 5 mg 2 times a day, her last use of oral prednisone was somewhere about a month to 2 months ago, her history is significant for coronary artery disease and angina history of TIAs type 2 diabetes mellitus deep venous thrombosis chronic fibromyalgia dyslipidemia hypertension hypertensive cardiovascular disease Objective - Vital Signs Vital signs: Vital Signs Temp 97.8 F 01/09/18 11:49 Pulse 72 01/09/18 13:59 Resp 16 01/09/18 11:49 BP 119/61 01/09/18 11:49 Pulse Ox 98 01/09/18 11:49 Intake & Output 01/08/18 01/09/18 01/09/18 18:59 06:59 18:59 Intake Total 120.71 336 Balance 120.71 336 Weight 83.1 kg Intake: IV 120.71 Oral 336 Other: Voiding Method Toilet Toilet Toilet # Voids 1 1 - Exam General appearance: alert, in no apparent distress Head exam: Present: atraumatic Eye exam: Present: normal appearance, PERRL ENT exam: Present: normal oropharynx Neck exam: Present: normal inspection Respiratory exam: Present: Good bilateral air entry is present without any significant reason rhonchi or rub Cardiovascular Exam: Present: tachycardia GI/Abdominal exam: Present: soft. Absent: tenderness Extremities exam: Present: normal inspection. Absent: pedal edema, calf tenderness, examination the hand revealed finding consistent with advanced rheumatoid arthritis Back exam: Present: normal inspection. Absent: tenderness Neurological exam: Present: alert Psychiatric exam: Present: normal affect, normal mood Skin exam: Present: normal color - Labs CBC & Chem 7: 01/09/18 08:55 01/09/18 08:55 Labs: Abnormal Lab Results - Last 24 Hours (Table) 01/08/18 01/08/18 01/08/18 Range/Units 13:58 17:00 20:32 RBC (3.80-5.40) m/uL Hgb (11.4-16.0) gm/dL Hct (34.0-46.0) % RDW (11.5-15.5) % BUN (7-17) mg/dL Glucose (74-99) mg/dL POC Glucose (mg/dL) 170 H 228 H 175 H (75-99) mg/dL 01/09/18 01/09/18 01/09/18 Range/Units 06:02 08:55 08:55 RBC 2.74 L (3.80-5.40) m/uL Hgb 8.1 L (11.4-16.0) gm/dL Hct 25.3 L (34.0-46.0) % RDW 17.9 H (11.5-15.5) % BUN 32 H (7-17) mg/dL Glucose 165 H (74-99) mg/dL POC Glucose (mg/dL) 141 H (75-99) mg/dL 01/09/18 Range/Units 11:25 RBC (3.80-5.40) m/uL Hgb (11.4-16.0) gm/dL Hct (34.0-46.0) % RDW (11.5-15.5) % BUN (7-17) mg/dL Glucose (74-99) mg/dL POC Glucose (mg/dL) 277 H (75-99) mg/dL Microbiology - Last 24 Hours (Table) 01/03/18 10:31 Blood Culture - Final Blood No Growth after 144 hours 01/03/18 22:10 Blood Culture - Preliminary Blood No Growth after 120 hours 01/03/18 21:48 Blood Culture - Preliminary Blood No Growth after 120 hours Assessment and Plan Assessment: Acute hypoxic respiratory failure related to multi lobar pneumonia Bilateral pleural effusion likely related to acute heart failure Coronary artery disease and acute non-ST segment elevated OK, status post stent and LAD for details please refer to dictated report of cardiac cath angiogram performed earlier this morning Acute heart failure suspect acute on chronic systolic and/or diastolic heart failure Noninfectious complication like bronchiolitis obliterans occlusive pneumonia related to advanced rheumatoid arthritis cannot be excluded Suspect presence of pulmonary hypertension Rheumatoid lung and interstitial lung disease related to advanced rheumatoid arthritis cannot be excluded however patient needs to be evaluated once pneumonia clears up with a high resolution computed tomography scan which will be arranged on outpatient setting Plan: Agree with workup and therapy of heart failure with echocardiogram and cardiovascular evaluation, with cardiac cath and angiogram with findings as noted above Would maintain patient on IV steroids with Solu-Medrol along with broad- spectrum antibiotics and adjustment of antibiotics as noted above Reviewed results of Sputum for Gram stain and culture Further evaluation of rheumatoid lung once pneumonia clears up Follow clinical course closely patient could benefit from bronchoscopy and transbronchial lung biopsy once more stable and if infiltrate do not clear Further recommendations pending plan of care as per clinical response of the patient Time with Patient: Greater than 30
--- NOTE | 2018-01-09 15:23 | P.PN ---
Subjective Progress Note Date: 01/09/18 Principal diagnosis: Shortness of breath This is a 77-year-old female who follows with in the office. She has a known history of rheumatoid arthritis, coronary artery disease with prior stent placement, hypertension, hyperlipidemia. She presented to the hospital with symptoms of worsening shortness of breath, exertional in nature. Patient had been diagnosed with left-sided multifocal pneumonia and was receiving antibiotics IV. Cardiology consultation was initially requested because of abnormal EKG and cardiac enzymes. She was seen in consultation by Dr. Ferraro. Blood pressure this morning 128/60 with a heart rate in the 70s, temperature 97.7. White blood cell count 8.9, hemoglobin 8.2, platelet count 243. Sodium 135, potassium 3.9, BUN 23, creatinine 0.8. Patient's breathing overall today is stable. 01/09/2018 Patient was taken to the cardiac catheterization lab yesterday where she was found to have a 90% stenosis in the proximal edge of the stented segment in the right coronary artery. The stent in the LAD has mild disease of 30-40% stenosis unchanged from prior. The obtuse marginal branch had a long area of stenosis proximally 60%. Following the procedure patient underwent angioplasty and stenting of the RCA. She was seen and examined this morning, complaining of some mild shortness of breath. Blood pressure 120/60 with a heart rate in the 70s, 98% on room air. White blood cell count 9.2, hemoglobin 8.1, platelet count 266. Sodium 137, potassium 3.6, BUN 32, creatinine 1.0. Objective - Vital Signs Vital signs: Vital Signs Temp 97.8 F 01/09/18 11:49 Pulse 73 01/09/18 11:49 Resp 16 01/09/18 11:49 BP 119/61 01/09/18 11:49 Pulse Ox 98 01/09/18 11:49 Intake & Output 01/08/18 01/09/18 01/09/18 18:59 06:59 18:59 Intake Total 120.71 236 Balance 120.71 236 Weight 83.1 kg Intake: IV 120.71 Oral 236 Other: Voiding Method Toilet Toilet Toilet # Voids 1 1 - Exam PHYSICAL EXAMINATION: GENERAL: 77-year-old female in no apparent distress at the time of my examination. HEENT: Head is atraumatic, normocephalic. Pupils equal, round. Sclera anicteric. Conjunctiva are clear. Mucous membranes of the mouth are moist. Neck is supple. There is no elevated jugular venous pressure.] bruit is heard. HEART EXAMINATION: Heart S1, S2 normal. No murmur or gallop heard. CHEST EXAMINATION: Lungs reveal diminished air entry bilaterally with fine crackles to the bases ABDOMEN: Soft, nontender. Bowel sounds are heard. No organomegaly noted. Right groin soft, no evidence of any hematoma. EXTREMITIES: 2+ peripheral pulses with no evidence of peripheral edema and no calf tenderness noted. NEUROLOGIC patient is awake, alert and oriented -3. . - Labs CBC & Chem 7: 01/09/18 08:55 01/09/18 08:55 Labs: Abnormal Lab Results - Last 24 Hours (Table) 01/08/18 01/08/18 01/08/18 Range/Units 13:58 17:00 20:32 RBC (3.80-5.40) m/uL Hgb (11.4-16.0) gm/dL Hct (34.0-46.0) % RDW (11.5-15.5) % BUN (7-17) mg/dL Glucose (74-99) mg/dL POC Glucose (mg/dL) 170 H 228 H 175 H (75-99) mg/dL 01/09/18 01/09/18 01/09/18 Range/Units 06:02 08:55 08:55 RBC 2.74 L (3.80-5.40) m/uL Hgb 8.1 L (11.4-16.0) gm/dL Hct 25.3 L (34.0-46.0) % RDW 17.9 H (11.5-15.5) % BUN 32 H (7-17) mg/dL Glucose 165 H (74-99) mg/dL POC Glucose (mg/dL) 141 H (75-99) mg/dL 01/09/18 Range/Units 11:25 RBC (3.80-5.40) m/uL Hgb (11.4-16.0) gm/dL Hct (34.0-46.0) % RDW (11.5-15.5) % BUN (7-17) mg/dL Glucose (74-99) mg/dL POC Glucose (mg/dL) 277 H (75-99) mg/dL Microbiology - Last 24 Hours (Table) 01/03/18 10:31 Blood Culture - Final Blood No Growth after 144 hours 01/03/18 22:10 Blood Culture - Preliminary Blood No Growth after 120 hours 01/03/18 21:48 Blood Culture - Preliminary Blood No Growth after 120 hours 01/05/18 20:39 Gram Stain - Final Sputum Sputum Culture - Final Assessment and Plan Plan: Assessment and plan #1 sepsis associated with underlying and pneumonia #2 non-Q-wave myocardial infarction #3 anemia of chronic disease #4 rheumatoid arthritis #5 known history of coronary artery disease with prior PCI #6 hypertension #7 hyperlipidemia #8 diabetes #9 systolic congestive heart failure acute on chronic Plan Status post angioplasty and stenting of the right coronary artery. We will start her on IV Lasix today, add Aldactone to her medication regime, decrease aspirin 81 mg daily. We will also discontinue the Tenormin and start the patient on Coreg. Lisinopril, we will hold this now for 48 hours and then initiate Entresto. DNP note has been reviewed, I agree with a documented findings and plan of care. Patient was seen and examined.
[2018-01-09 16:39] LABS: Glucose,Whole Blood 210 mg/dL (75-99)
[2018-01-09] MEDS: AMOXIC-POT CLAV 500-125 MG 1 EACH TAB PO SCH (20:04)
[2018-01-09] MEDS: FUROSEMIDE 10 MG/ML 4 ML VIAL IV SCH (20:05)
[2018-01-09] MEDS: ATORVASTATIN 80 MG TAB PO SCH (20:05)
[2018-01-09 20:53] LABS: Glucose,Whole Blood 187 mg/dL (75-99)
[2018-01-09] MEDS: INSULIN DETEMIR 100 UNIT/ML 10 ML VIAL SQ SCH (21:15)
[2018-01-09] MEDS: LORazepam 0.5 MG TAB PO SCH (21:15)
[2018-01-09] MEDS: HYDROcodone/APAP 10-325MG 1 EACH TAB PO PRN (22:45)
[2018-01-10] MEDS: PANTOPRAZOLE 40 MG TABLET PO SCH (06:27)
[2018-01-10] MEDS: CARVEDILOL 6.25 MG TAB PO SCH ×2 (06:27→18:41)
[2018-01-10 06:28] LABS: Glucose,Whole Blood 98 mg/dL (75-99)
[2018-01-10] MEDS: INSULIN ASPART 100 UNIT/ML 1 ML 10 ML VIAL SQ SCH ×4 (06:28→21:08)
[2018-01-10 06:36] LABS: Anisocytosis Slight; Basophils % (A) 0 %; Eosinophils # (A) 0.2 k/uL (0-0.7); Eosinophils % (A) 2 %; HGB 8.3 gm/dL (11.4-16.0); Hypochromasia Slight; Lymphocytes # (A) 1.4 k/uL (1.0-4.8); Lymphocytes % (A) 15 %; MCH 29.8 pg (25.0-35.0); MCHC 33.3 g/dL (31.0-37.0); MCV 89.4 fL (80.0-100.0); Mean Platelet Volume 7.3; Monocytes # (A) 0.7 k/uL (0-1.0); Monocytes % (A) 8 %; Neutrophils # (A) 6.5 k/uL (1.3-7.7); Neutrophils % (A) 72 %; Platelet Count 278 k/uL (150-450); RDW 17.6 % (11.5-15.5)
[2018-01-10 06:49] LABS: Calcium 8.7 mg/dL (8.4-10.2); Potassium 3.5 mmol/L (3.5-5.1)
[2018-01-10] MEDS ORDERED: VANCOMYCIN 1,500 MG in SODIUM CHLORIDE 0.9% 250 ML IVPB SCH (07:00)
[2018-01-10 08:55] VITALS: RESP 18
[2018-01-10] MEDS: IPRATROPIUM-ALBUTEROL 3 ML NEB INHALATION SCH ×3 (09:20→19:42)
[2018-01-10] MEDS: AMOXIC-POT CLAV 500-125 MG 1 EACH TAB PO SCH ×2 (09:49→20:02)
[2018-01-10] MEDS: SENNOSIDES-DOCUSATE SODIUM 1 EACH TAB PO SCH ×2 (09:49→20:02)
[2018-01-10] MEDS: MEMANTINE 10 MG TAB PO SCH ×2 (09:49→20:02)
[2018-01-10] MEDS: CEVIMELINE 30 MG CAP PO SCH ×2 (09:49→20:02)
[2018-01-10] MEDS: CLOPIDOGREL 75 MG TAB PO SCH (09:50)
[2018-01-10] MEDS: GABAPENTIN 300 MG CAP PO SCH ×3 (09:50→20:02)
[2018-01-10] MEDS: DULoxetine HCL 30 MG CAPSULE.DR PO SCH (09:50)
[2018-01-10] MEDS: ASPIRIN 81 MG PO SCH (09:50)
[2018-01-10] MEDS: SPIRONOLACTONE 25 MG TAB PO SCH (09:50)
[2018-01-10] MEDS: methylPREDNISolone SOD SUCCI 40 MG/ML 1 ML VIAL IV SCH (09:50)
[2018-01-10] MEDS: AZITHROMYCIN 500 MG TAB PO SCH (09:50)
[2018-01-10] MEDS: POLYETHYLENE GLYCOL 3350 17 GM POWD.PACK PO SCH (09:50)
[2018-01-10] MEDS: LORATADINE 10 MG TAB PO SCH (09:50)
[2018-01-10] MEDS: buPROPion XL 300 MG TAB.ER.24H PO SCH (09:50)
[2018-01-10] MEDS: FUROSEMIDE 10 MG/ML 4 ML VIAL IV SCH (09:50)
[2018-01-10] MEDS: valACYclovir 500 MG TAB PO SCH (09:50)
[2018-01-10] MEDS: SODIUM FERRIC GLUCONAT-SUCROSE 125 MG in SODIUM CHLORIDE 0.9% 100 ML IVPB SCH (10:09)
[2018-01-10 10:46] VITALS: BMI 33.5
[2018-01-10 12:00] LABS: Glucose,Whole Blood 259 mg/dL (75-99)
--- NOTE | 2018-01-10 12:58 | P.PN ---
Subjective Progress Note Date: 01/10/18 Principal diagnosis: Shortness of breath This is a 77-year-old female who follows with in the office. She has a known history of rheumatoid arthritis, coronary artery disease with prior stent placement, hypertension, hyperlipidemia. She presented to the hospital with symptoms of worsening shortness of breath, exertional in nature. Patient had been diagnosed with left-sided multifocal pneumonia and was receiving antibiotics IV. Cardiology consultation was initially requested because of abnormal EKG and cardiac enzymes. She was seen in consultation by Dr. Ferraro. Blood pressure this morning 128/60 with a heart rate in the 70s, temperature 97.7. White blood cell count 8.9, hemoglobin 8.2, platelet count 243. Sodium 135, potassium 3.9, BUN 23, creatinine 0.8. Patient's breathing overall today is stable. 01/09/2018 Patient was taken to the cardiac catheterization lab yesterday where she was found to have a 90% stenosis in the proximal edge of the stented segment in the right coronary artery. The stent in the LAD has mild disease of 30-40% stenosis unchanged from prior. The obtuse marginal branch had a long area of stenosis proximally 60%. Following the procedure patient underwent angioplasty and stenting of the RCA. She was seen and examined this morning, complaining of some mild shortness of breath. Blood pressure 120/60 with a heart rate in the 70s, 98% on room air. White blood cell count 9.2, hemoglobin 8.1, platelet count 266. Sodium 137, potassium 3.6, BUN 32, creatinine 1.0. 01/10/2018 Patient was seen and examined this morning, feeling better overall. Up ambulating with physical therapy today. Blood pressure 130/60, heart rate in the 80s, 95% on room air. White blood cell count 9.0, hemoglobin 8.3, platelet count 278. Sodium 137, potassium 3.5, BUN 29, creatinine 0.7. Echocardiogram with Doppler study was performed which revealed an ejection fraction of 20-25%. LA is severely dilated. Moderate aortic regurgitation, severe mitral regurgitation. We will repeat a chest x-ray tomorrow morning. Continue current dose of IV Lasix. Objective - Vital Signs Vital signs: Vital Signs Temp 97.1 F L 01/10/18 08:00 Pulse 80 06/21/18 08:00 Resp 18 01/10/18 08:00 BP 109/55 01/10/18 08:00 Pulse Ox 96 01/10/18 08:00 Intake & Output 01/09/18 01/10/18 01/10/18 18:59 06:59 18:59 Intake Total 436 600 368 Balance 436 600 368 Weight 83.2 kg 83.2 kg Intake: Intake, IV Titration 250 Amount Vancomycin 1,500 mg In 250 Sodium Chloride 0.9% 250 ml @ 125 mls/hr IVPB Q16H [facility] Rx#:[id number] Oral 436 600 118 Other: Voiding Method Toilet Toilet # Voids 1 - Exam PHYSICAL EXAMINATION: GENERAL: 77-year-old female in no apparent distress at the time of my examination. HEENT: Head is atraumatic, normocephalic. Pupils equal, round. Sclera anicteric. Conjunctiva are clear. Mucous membranes of the mouth are moist. Neck is supple. There is no elevated jugular venous pressure.] bruit is heard. HEART EXAMINATION: Heart S1, S2 normal. No murmur or gallop heard. CHEST EXAMINATION: Lungs reveal diminished air entry bilaterally with fine crackles to the bases ABDOMEN: Soft, nontender. Bowel sounds are heard. No organomegaly noted. Right groin soft, no evidence of any hematoma. EXTREMITIES: 2+ peripheral pulses with no evidence of peripheral edema and no calf tenderness noted. Right groin soft, no evidence of any hematoma. NEUROLOGIC patient is awake, alert and oriented -3. . - Labs CBC & Chem 7: 01/10/18 06:22 01/10/18 06:22 Labs: Abnormal Lab Results - Last 24 Hours (Table) 01/09/18 01/09/18 01/10/18 Range/Units 16:36 20:52 06:22 RBC 2.80 L (3.80-5.40) m/uL Hgb 8.3 L (11.4-16.0) gm/dL Hct 25.0 L (34.0-46.0) % RDW 17.6 H (11.5-15.5) % BUN (7-17) mg/dL POC Glucose (mg/dL) 210 H 187 H (75-99) mg/dL 01/10/18 01/10/18 Range/Units 06:22 11:52 RBC (3.80-5.40) m/uL Hgb (11.4-16.0) gm/dL Hct (34.0-46.0) % RDW (11.5-15.5) % BUN 29 H (7-17) mg/dL POC Glucose (mg/dL) 259 H (75-99) mg/dL Microbiology - Last 24 Hours (Table) 01/03/18 22:10 Blood Culture - Final Blood No Growth after 144 hours 01/03/18 21:48 Blood Culture - Final Blood No Growth after 144 hours 01/03/18 10:31 Blood Culture - Final Blood No Growth after 144 hours Assessment and Plan Plan: Assessment and plan #1 sepsis associated with underlying and pneumonia #2 non-Q-wave myocardial infarction #3 anemia of chronic disease #4 rheumatoid arthritis #5 known history of coronary artery disease with prior PCI #6 hypertension #7 hyperlipidemia #8 diabetes #9 systolic congestive heart failure acute on chronic Plan From cardiology's perspective, we will continue current dose of IV Lasix. Repeat chest x-ray in the morning tomorrow. Patient had severe mitral regurgitation on echocardiogram. will review his office notes regarding further management. We'll check lytes BUN and creatinine in the morning. Continue to monitor intake and output and daily weights. DNP note has been reviewed, I agree with a documented findings and plan of care. Patient was seen and examined.
[2018-01-10] MEDS ORDERED: POTASSIUM CHLORIDE ER 10 MEQ TAB.ER.PRT PO STA (13:15)
--- NOTE | 2018-01-10 13:29 | P.PN ---
Subjective Progress Note Date: 01/10/18 Non-Q CA with a coronary artery stenosis and right coronary artery proximal part 90 percent, status post angioplasty and stent after cardiac catheterization with the result 0 stenosis post procedure. Anemia Picture patient transfused 2 units of iron, her hemoglobin 8.3 and we will be transfusing third one tomorrow prior to transfer to the care home facility. Dr. Rory patterson and critical care has been adjusting the antibiotic currently she is on Augmentin and azithromycin and we will be question regarding discharge with a 2 antibiotic versus 1, as well as in regard of the steroid as well. Patient has underlying congestive heart failure acute systolic dysfunction with the improvement of the ejection fraction to 20-25. Admission with underlying multilobar pneumonia resolved with the antibiotic, however she had tracheobronchitis with the laryngitis questionable viral in origin negative blood culture and negative sputum. 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 Ismael patterson. Hypertension with hypertensive heart disease currently stable with blood pressure ranging between 109/55. On the physical exam today Temperature 97.1 orally, pulse 80/m regular nonlabored and respiratory rate 18/ m blood pressure 109/55 and a mean pressure 73. HEENT negative, neck was supple, no JVD, no lymphadenopathy. Chest was clear no wheezes nor rhonchi's she had a small pleural effusion from the congestive heart failure stable. Heart: Regular sinus rhythm with the underlying cardiomegaly and severe mitral regurg will be followed as outpatient by Dr. Ferraro. Abdomen soft obese positive bowel sounds and extremities no edema and positive pulses. Neurological stable general condition no lateralizing sign and now able to have a few steps. With the deconditioning with their heart attack will be also transferred to extended facility as [facility] for further rehabilitation and conditioning. We will be starting her on as outpatient with the her medication for the rheumatoid arthritis and with the plan Plan: Obtain that tomorrow a chest x-ray in the morning as well as CBC with differential as well as BMP and magnesium. Objective - Vital Signs Vital signs: Vital Signs Temp 97.1 F L 01/10/18 08:00 Pulse 80 01/10/18 08:00 Resp 18 01/10/18 08:00 BP 109/55 01/10/18 08:00 Pulse Ox 96 01/10/18 08:00 Intake & Output 01/09/18 01/10/18 01/10/18 18:59 06:59 18:59 Intake Total 436 600 368 Balance 436 600 368 Weight 83.2 kg 83.2 kg Intake: Intake, IV Titration 250 Amount Vancomycin 1,500 mg In 250 Sodium Chloride 0.9% 250 ml @ 125 mls/hr IVPB Q16H [facility] Rx#:[id number] Oral 436 600 118 Other: Voiding Method Toilet Toilet # Voids 1 - Labs CBC & Chem 7: 01/10/18 06:22 01/10/18 06:22 Labs: Abnormal Lab Results - Last 24 Hours (Table) 01/09/18 01/09/18 01/10/18 Range/Units 16:36 20:52 06:22 RBC 2.80 L (3.80-5.40) m/uL Hgb 8.3 L (11.4-16.0) gm/dL Hct 25.0 L (34.0-46.0) % RDW 17.6 H (11.5-15.5) % BUN (7-17) mg/dL POC Glucose (mg/dL) 210 H 187 H (75-99) mg/dL 01/10/18 01/10/18 Range/Units 06:22 11:52 RBC (3.80-5.40) m/uL Hgb (11.4-16.0) gm/dL Hct (34.0-46.0) % RDW (11.5-15.5) % BUN 29 H (7-17) mg/dL POC Glucose (mg/dL) 259 H (75-99) mg/dL Microbiology - Last 24 Hours (Table) 01/03/18 22:10 Blood Culture - Final Blood No Growth after 144 hours 01/03/18 21:48 Blood Culture - Final Blood No Growth after 144 hours 01/03/18 10:31 Blood Culture - Final Blood No Growth after 144 hours
--- NOTE | 2018-01-10 13:43 | P.PN ---
Progress Note - Text Office records reviewed Patient seen on November 2017 76-year-old female who had presented with shortness of breath and a burning discomfort in the chest. The echo showed ejection fraction of 50% with septal hypokinesis. Past history of coronary stenting to the mid LAD many years back before 2005 as of the stenting to the RCA Moderate aortic regurgitation, mild mitral regurgitation A few days later she was admitted to the hospital with burning discomfort in the left arm and left scapula lung with diaphoresis She underwent pharmacologic stress testing at [facility] on December 03 and the stress test did not show any evidence for ischemia ejection fraction was 55% History of hypertension and diabetes dyslipidemia and past history of myocardial infarction After the stress test was planning to perform a transesophageal echo to assess her valves In addition the plan was to switch to beta blockers and lisinopril and discontinue amlodipine On this admission in December 2017 she underwent coronary angiography, for non-Q- wave myocardial infarction 90% stenosis at the proximal edge of the stented RCA Mild diffuse disease in the area of the stent in the mid LAD, 30-40% stenosis Long area of 60% stenosis in the obtuse marginal She underwent RCA stenting, Zions stent She is also being evaluated and treated for iron deficiency anemia 2-D echo shows severe LV dysfunction ejection fraction 20-25%. Only the apical segments abena. Severe MR and moderate aortic regurgitation These are new echocardiographic findings Plan Maximize medical treatment Reassess LV function in follow-up post revascularization Increase his degree of mitral regurgitation and consider transesophageal echocardiography in the future
--- NOTE | 2018-01-10 14:16 | XR ---
EXAMINATION TYPE: XR chest 2V DATE OF EXAM: 01/10/2018 COMPARISON: 01/07/2018 TECHNIQUE: PA and lateral views submitted. HISTORY: cough and congestion FINDINGS: Diffuse interstitial pattern. Small bilateral effusions. Postsurgical change overlying the right shou lder and cervical spine. No pneumothorax. Coronary artery stenting noted. Degenerative change of the spine. Heart size stable. IMPRESSION: 1. Diffuse interstitial pattern with small bilateral effusions correlate for CHF.
[2018-01-10] MEDS: FUROSEMIDE 20 MG TAB PO SCH (15:13)
--- NOTE | 2018-01-10 15:17 | P.PN ---
Subjective Progress Note Date: 01/10/18 Principal diagnosis: Bilateral pneumonia, acute hypoxic respirator failure, non-infectious pneumonia like bronchiolitis obliterans occlusive pneumonia cannot be excluded, acute hypoxic respirator failure, bilateral pleural effusion, congestive heart failure likely acute systolic heart failure, coronary artery disease, non-ST segment elevated OR 01/10/2018, patient seen eval reexamined during the rounds clinically patient has been doing well awake and alert breathing comfortably patient is status post stent of the RCA hemodynamics is stable patient is being maximized on medical therapy she remains on oral broad-spectrum antibiotics, Solu-Medrol is just once a day and tolerating it well, labs reviewed medications reviewed him a chest x-ray performed today reviewed as well revealed cardiomegaly interstitial edema possible small pleural effusion 01/09/2018, patient seen eval examined during the rounds clinically patient has been doing well awake and alert breathing comfortably still get short of breath on activity and exertion patient has been tolerating his steroids and antibiotics fairly well labs reviewed medications reviewed recent chest x-ray reviewed as well, the culture results and reports are reviewed blood cultures 3 and negative sputum Gram stain no significant predominance of any organism is seen final culture results are pending would recommend to switch antibiotics and DC the Vanco and Zosyn and simply use Augmentin along with Zithromax, would continue IV Solu-Medrol once daily for now 01/08/2018, patient seen eval examined during the rounds patient is status post cardiac cath angiogram and another stent has been placed, from [facility] standpoint patient has been doing better denies any cough or sputum production chest x-ray performed yesterday reviewed care plan discussed with the cardiovascular services as well as primary services as well, for now we'll maintain patient on once a day Solu-Medrol along with antibiotics however they can be switched to oral agree with monitoring observing and maximize aeration of medical therapy for now patient does not appear to be ready for discharge for another 48-72 hours until more significant response has been seen of therapy 01/07/2018, patient seen eval examined during the rounds clinically patient has been doing slightly better in terms of breathing denies any cough or sputum production patient remains on broad-spectrum antibiotics and IV steroids tolerating well her to cath and angiogram has been postponed for tomorrow, patient appears to be responding well with IV steroids breathing treatments and antibiotics along with gentle diuresis will lowered down the Solu-Medrol to once daily today 01/06/2018, patient seen and evaluated examined during the rounds has been getting IV steroids antibiotics with significant improvement in respiratory status cardiovascular services following planning for cath and angiogram likely tomorrow labs reviewed medications reviewed care plan discussed with the patient at length 77-year-old female who was seen eval reexamined as per request of Dr. Garcia, patient is a nonsmoker but does have a history of complex and multiple medical problems and issues she is been complaining of increasing shortness of breath especially on exertion for last 1-1/2 month and last few weeks it got to a point that with activity and exertion she had to sit due to severe degree of dyspnea, patient was seen in the emergency department about a week ago was discharged now came back again and presented this time and emergency department earlier this morning with problems associated with bilateral chest discomfort more so on the left side feeling of generalized aches pains fatigue and some chest and back discomfort as well, patient has been admitted into the hospital a computed tomography scan of the chest was performed which I have reviewed Her history is significant for advanced rheumatoid arthritis for which she is on methotrexate once a week and Xeljanz 5 mg 2 times a day, her last use of oral prednisone was somewhere about a month to 2 months ago, her history is significant for coronary artery disease and angina history of TIAs type 2 diabetes mellitus deep venous thrombosis chronic fibromyalgia dyslipidemia hypertension hypertensive cardiovascular disease Objective - Vital Signs Vital signs: Vital Signs Temp 97.1 F L 01/10/18 08:00 Pulse 80 01/10/18 08:00 Resp 18 01/10/18 08:00 BP 109/55 01/10/18 08:00 Pulse Ox 96 01/10/18 08:00 Intake & Output 01/09/18 01/10/18 01/10/18 18:59 06:59 18:59 Intake Total 436 600 368 Balance 436 600 368 Weight 83.2 kg 83.2 kg Intake: Intake, IV Titration 250 Amount Vancomycin 1,500 mg In 250 Sodium Chloride 0.9% 250 ml @ 125 mls/hr IVPB Q16H [facility] Rx#:[id number] Oral 436 600 118 Other: Voiding Method Toilet Toilet # Voids 1 - Exam General appearance: alert, in no apparent distress Head exam: Present: atraumatic Eye exam: Present: normal appearance, PERRL ENT exam: Present: normal oropharynx Neck exam: Present: normal inspection Respiratory exam: Present: Good bilateral air entry is present without any significant reason rhonchi or rub Cardiovascular Exam: Present: tachycardia GI/Abdominal exam: Present: soft. Absent: tenderness Extremities exam: Present: normal inspection. Absent: pedal edema, calf tenderness, examination the hand revealed finding consistent with advanced rheumatoid arthritis Back exam: Present: normal inspection. Absent: tenderness Neurological exam: Present: alert Psychiatric exam: Present: normal affect, normal mood Skin exam: Present: normal color - Labs CBC & Chem 7: 01/10/18 06:22 01/10/18 06:22 Labs: Abnormal Lab Results - Last 24 Hours (Table) 01/09/18 01/09/18 01/10/18 Range/Units 16:36 20:52 06:22 RBC 2.80 L (3.80-5.40) m/uL Hgb 8.3 L (11.4-16.0) gm/dL Hct 25.0 L (34.0-46.0) % RDW 17.6 H (11.5-15.5) % BUN (7-17) mg/dL POC Glucose (mg/dL) 210 H 187 H (75-99) mg/dL 01/10/18 01/10/18 Range/Units 06:22 11:52 RBC (3.80-5.40) m/uL Hgb (11.4-16.0) gm/dL Hct (34.0-46.0) % RDW (11.5-15.5) % BUN 29 H (7-17) mg/dL POC Glucose (mg/dL) 259 H (75-99) mg/dL Microbiology - Last 24 Hours (Table) 01/03/18 22:10 Blood Culture - Final Blood No Growth after 144 hours 01/03/18 21:48 Blood Culture - Final Blood No Growth after 144 hours 01/03/18 10:31 Blood Culture - Final Blood No Growth after 144 hours Assessment and Plan Assessment: Acute hypoxic respiratory failure related to multi lobar pneumonia Bilateral pleural effusion likely related to acute heart failure, echo now reveals ejection fraction 20% Coronary artery disease and acute non-ST segment elevated OR, status post stent in RCA for details please refer to dictated report of cardiac cath angiogram performed earlier this morning Acute heart failure suspect acute on chronic systolic and/or diastolic heart failure Noninfectious complication like bronchiolitis obliterans occlusive pneumonia related to advanced rheumatoid arthritis cannot be excluded Suspect presence of severe pulmonary hypertension Rheumatoid lung and interstitial lung disease related to advanced rheumatoid arthritis cannot be excluded however patient needs to be evaluated once pneumonia clears up with a high resolution computed tomography scan which will be arranged on outpatient setting Plan: Agree with workup and therapy of heart failure with echocardiogram and cardiovascular evaluation, with cardiac cath and angiogram with findings as noted above Would maintain patient on IV steroids with Solu-Medrol along with broad- spectrum antibiotics and adjustment of antibiotics as noted above Reviewed results of Sputum for Gram stain and culture Further evaluation of rheumatoid lung once pneumonia clears up Follow clinical course closely patient could benefit from bronchoscopy and transbronchial lung biopsy once more stable and if infiltrate do not clear Further recommendations pending plan of care as per clinical response of the patient Time with Patient: Greater than 30
[2018-01-10 16:48] LABS: Glucose,Whole Blood 272 mg/dL (75-99)
[2018-01-10] MEDS: SACUBITRIL/VALSARTAN 24 MG-26 MG TABLET PO SCH (20:02)
[2018-01-10] MEDS: ATORVASTATIN 80 MG TAB PO SCH (20:02)
[2018-01-10] MEDS: LORazepam 0.5 MG TAB PO SCH (20:05)
[2018-01-10] MEDS: MELATONIN 3 MG TABLET PO PRN (20:05)
[2018-01-10] MEDS: HYDROcodone/APAP 10-325MG 1 EACH TAB PO PRN (20:06)
[2018-01-10 20:50] LABS: Glucose,Whole Blood 139 mg/dL (75-99)
[2018-01-10] MEDS: INSULIN DETEMIR 100 UNIT/ML 10 ML VIAL SQ SCH (21:40)
[2018-01-11 05:57] LABS: Glucose,Whole Blood 126 mg/dL (75-99)
[2018-01-11] MEDS: INSULIN ASPART 100 UNIT/ML 1 ML 10 ML VIAL SQ SCH ×2 (06:00→12:12)
[2018-01-11] MEDS: PANTOPRAZOLE 40 MG TABLET PO SCH (06:10)
[2018-01-11] MEDS: CARVEDILOL 6.25 MG TAB PO SCH (06:10)
[2018-01-11 07:25] LABS: Anisocytosis Slight; Basophils % (A) 0 %; Eosinophils # (A) 0.2 k/uL (0-0.7); Eosinophils % (A) 2 %; HCT 28.1 % (34.0-46.0); Hypochromasia Slight; Lymphocytes # (A) 1.4 k/uL (1.0-4.8); Lymphocytes % (A) 18 %; MCH 29.6 pg (25.0-35.0); MCV 92.3 fL (80.0-100.0); Mean Platelet Volume 6.6; Monocytes # (A) 0.6 k/uL (0-1.0); Monocytes % (A) 8 %; Neutrophils # (A) 5.4 k/uL (1.3-7.7); Neutrophils % (A) 70 %; Platelet Count 293 k/uL (150-450); RBC 3.05 m/uL (3.80-5.40); RDW 18.8 % (11.5-15.5); WBC 7.7 k/uL (3.8-10.6)
[2018-01-11 07:53] LABS: Anion Gap 11 mmol/L; Blood Urea Nitrogen 19 mg/dL (7-17); Calcium 8.5 mg/dL (8.4-10.2); Carbon Dioxide 29 mmol/L (22-30); Chloride 96 mmol/L (98-107); Glucose 113 mg/dL (74-99); Magnesium 1.8 mg/dL (1.6-2.3); Potassium 3.5 mmol/L (3.5-5.1); Sodium 136 mmol/L (137-145)
[2018-01-11] MEDS: SENNOSIDES-DOCUSATE SODIUM 1 EACH TAB PO SCH (08:19)
[2018-01-11] MEDS: LORATADINE 10 MG TAB PO SCH (08:19)
[2018-01-11] MEDS: SACUBITRIL/VALSARTAN 24 MG-26 MG TABLET PO SCH (08:19)
[2018-01-11] MEDS: CLOPIDOGREL 75 MG TAB PO SCH (08:19)
[2018-01-11] MEDS: buPROPion XL 300 MG TAB.ER.24H PO SCH (08:19)
[2018-01-11] MEDS: AZITHROMYCIN 500 MG TAB PO SCH (08:19)
[2018-01-11] MEDS: valACYclovir 500 MG TAB PO SCH (08:19)
[2018-01-11] MEDS: CEVIMELINE 30 MG CAP PO SCH (08:19)
[2018-01-11] MEDS: ASPIRIN 81 MG PO SCH (08:19)
[2018-01-11] MEDS: AMOXIC-POT CLAV 500-125 MG 1 EACH TAB PO SCH (08:19)
[2018-01-11] MEDS: DULoxetine HCL 30 MG CAPSULE.DR PO SCH (08:19)
[2018-01-11] MEDS: MEMANTINE 10 MG TAB PO SCH (08:19)
[2018-01-11] MEDS: POLYETHYLENE GLYCOL 3350 17 GM POWD.PACK PO SCH (08:20)
[2018-01-11] MEDS: GABAPENTIN 300 MG CAP PO SCH ×2 (08:20→16:17)
[2018-01-11] MEDS: FUROSEMIDE 20 MG TAB PO SCH ×2 (08:20→16:17)
[2018-01-11] MEDS: SPIRONOLACTONE 25 MG TAB PO SCH (08:20)
[2018-01-11] MEDS: IPRATROPIUM-ALBUTEROL 3 ML NEB INHALATION SCH ×2 (08:21→12:13)
[2018-01-11] MEDS ORDERED: predniSONE 50 MG TAB PO SCH (09:00)
[2018-01-11] MEDS: SODIUM FERRIC GLUCONAT-SUCROSE 125 MG in SODIUM CHLORIDE 0.9% 100 ML IVPB SCH (09:59)
[2018-01-11 11:18] LABS: Glucose,Whole Blood 238 mg/dL (75-99)
--- NOTE | 2018-01-11 12:32 | P.PN ---
Subjective Patient is lying comfortably in bed. She denies any chest discomfort no shortness of breath. Her breathing is a lot better now. On examination she is afebrile 97.2F, blood pressure is 128/64 mmHg heart rates are in the 80s Breath sounds are reduced bilaterally but no rhonchi no crackles Systolic murmur is audible over the apex of the heart Abdomen soft nontender External is warm no edema Impression New onset cardio myopathy, which was not present several months back New onset mitral regurgitation which was not present several months back Known CAD, non-Q-wave MA on this admission status post coronary stenting to the proximal RCA Plan Maximize medical treatment for heart failure and coronary artery disease In the future evaluation of mitral regurgitation and cardio myopathy in follow- up in about 3 months as an outpatient Objective - Vital Signs Vital signs: Vital Signs Temp 97.2 F L 01/11/18 08:00 Pulse 85 01/11/18 08:00 Resp 18 01/11/18 08:00 BP 131/60 01/11/18 08:00 Pulse Ox 93 L 01/11/18 08:00 Intake & Output 01/10/18 01/11/18 01/11/18 18:59 06:59 18:59 Intake Total 1018 240 340 Output Total 0 Balance 1018 240 340 Weight 83.2 kg 80.6 kg Intake: Intake, IV Titration 350 100 Amount Sodium Ferric Gluconat- 100 100 Sucrose 125 mg In Sodium Chloride 0.9% 100 ml @ 100 mls/hr IVPB DAILY [facility] Rx#:[id number] Vancomycin 1,500 mg In 250 Sodium Chloride 0.9% 250 ml @ 125 mls/hr IVPB Q16H [facility] Rx#:[id number] Oral 668 240 240 Output: Urine 0 Other: Voiding Method Toilet # Voids 1 2 1 - Labs CBC & Chem 7: 01/11/18 07:03 01/11/18 07:03 Labs: Abnormal Lab Results - Last 24 Hours (Table) 01/10/18 01/10/18 01/11/18 Range/Units 16:42 20:49 05:56 RBC (3.80-5.40) m/uL Hgb (11.4-16.0) gm/dL Hct (34.0-46.0) % RDW (11.5-15.5) % Sodium (137-145) mmol/L Chloride (98-107) mmol/L BUN (7-17) mg/dL Glucose (74-99) mg/dL POC Glucose (mg/dL) 272 H 139 H 126 H (75-99) mg/dL 01/11/18 01/11/18 01/11/18 Range/Units 07:03 07:03 11:15 RBC 3.05 L (3.80-5.40) m/uL Hgb 9.0 L (11.4-16.0) gm/dL Hct 28.1 L (34.0-46.0) % RDW 18.8 H (11.5-15.5) % Sodium 136 L (137-145) mmol/L Chloride 96 L (98-107) mmol/L BUN 19 H (7-17) mg/dL Glucose 113 H (74-99) mg/dL POC Glucose (mg/dL) 238 H (75-99) mg/dL
--- NOTE | 2018-01-11 13:22 | P.DS ---
Providers Date of admission: 01/03/18 13:04 Expected date of discharge: 01/11/18 (discharge to [facility]) Attending physician: Cornelio Garcia Consults: 01/03/18 13:04 Consult Physician Urgent Consulting Provider: William Brumfield Consult Reason/Comments: [email or web address] Do you want consulting provider notified?: Yes 01/03/18 14:36 Consult Physician Urgent Consulting Provider: Ismael Valadez Consult Reason/Comments: SOB , R/O rheumatoid lung Do you want consulting provider notified?: Yes 01/08/18 13:25 Consult Physician Routine Consulting Provider: [facility] Consult Reason/Comments: Post Interventional patient Do you want consulting provider notified?: Already Contacted Primary care physician: Cornelio Garcia discharge summary dictated by Dr. Dinora Ewing [facility] date of discharge his 2017. Final diagnoses #1 acute non-Q myocardial infarction , #2 right coronary proximal artery stenosis status post cardiac cath, PCI, stent placement by Dr. brumfield invasive cardiology. #3 complicated with congestive heart failure acute systolic #4 ischemic cardiomyopathy with drop of the ejection fraction 20% to 25 %. #5 anemia mixed picture of iron deficiency and chronic disease, status post iron transfusion 1 unit per day for 3 days. With the improvement of the hemoglobin to 9 today. #6 multilobar pneumonia treated with 3 antibiotic Zosyn , vancomycin, azithromycin, by the critical care and pulmonary Dr. Ismael Valadez. #7 bilateral pleural effusion secondary to congestive heart failure. #8 underlying pulmonary fibrosis, interstitial lung disease, need for further investigation as outpatient by Dr. Ismael Valadez the pulmonary and critical. #9 underlying rheumatoid arthritis, rheumatoid lung associated with bronchitis obliterans. #10 laryngitis and bronchitis. #11hypertension with hypertensive heart disease currently blood pressure is controlled. #12 immunocompromise with the methotrexate, with possible effect on the lung. #13 acute hypoxic respiratory failure related to multiple lobar pneumonia. #14 non-infectious complication like burrowing acute colitis obliterans occlusive pneumonia related to rheumatoid arthritis could not be executed until for further investigation her Dr. Ismael Valadez Laboratory today on 01/11/2018: WBC 7.7 hemoglobin 9 hematocrit 28.1 which is improved from 8.3 hemoglobin and hematocrit was 25 on 620. Electrolyte sodium 136 potassium 3.5 chloride 96 carbon dioxide 29 BUN 19 creatinine 0.68 magnesium 1.8 and blood sugar fasting 113. Vital sign today on 01/11/2018 Temperature 97.2 orally pulse is 85 and respiratory rate is 18/m comfortable nonlabored, blood pressure 131/60 with a mean 83 her pulse ox ranging between 93 and 95. Percent. Patient feel comfortable no shortness of breath her laryngitis and cough is improved.the chest x-ray on the date of 621 improved with the underlying diffuse interstitial lung disease.and The impression of Dr. Arriola the breast buffer who is taking care of her as outpatient as well stated in his impression new onset of of cardiomyopathy which was not present several months ago. Also new onset of mitral regurgitation severe and was not present several months back and currently stated that coronary artery disease and non-Q wave FL on admission and post stenting to the proximal RCA continued for future evaluation for mitral regurg and cardiomyopathy as outpatient. On the presentation to the emergency room: Presented with shortness of breath, congestive heart failure, chest discomfort, with abnormal chest x-ray, hypoxemia , pleural effusion, pneumonia. Hospital course: Patient admitted to telemetry with the progression of the troponin and cardiac panel and her elevated proBNP, telemetry and IV diuresis with Lasix and echocardiogram, cardiology consultation, pulmonary consultation As patient improved gradually and the cardiology advised to go to the care home for rehab and I was told that everything is set up for [facility] currently 90 received a note from the social professionals who came and discussed with me the patient is not eligible for care home and the insurance would send her home with [facility]. On On the physical examination patient is conscious alert oriented she had able to go to the bathroom a few steps however she definitely needs further rehabilitation. Her HEENT negative and she had her color is improving but she still have pallor and anemia her oropharynx is negative and no neck was supple no JVD no thyromegaly no lymphadenopathy trachea midline. The chest was markedly improvement and with no wheezes no rhonchi's and the heart was regular sinus rhythm the abdomen was soft positive bowel sounds and extremities no edema. The assessment Assessment: And plan: Patient apparently has the insurance did not accepting her for care home she will be going home and to be discharged home today and follow-up with Dr. Ismael Valadez as well as Dr. Ferraro as well as myself in 3-[address] Farias. And continue her current medication. Patient Condition at Discharge: Serious Plan - Discharge Summary Discharge Rx Participant: Yes New Discharge Prescriptions: New Acetaminophen Tab [Tylenol] 650 mg PO Q6HR PRN tab PRN Reason: Fever And/ Or Pain Amoxic-Pot Clav 500-125 mg [Augmentin 500-125 mg] 1 each PO BID 7 Days tab Aspirin 81 mg PO DAILY chew Azithromycin [Zithromax] 500 mg PO DAILY #5 tab Carvedilol [Coreg] 6.25 mg PO BID-W/MEALS tab Clopidogrel [Plavix] 75 mg PO DAILY tab Furosemide [Lasix] 60 mg PO BID@0900,1600 tab Insulin Aspart [NovoLOG (formulary)] 0 unit SQ ACHS vial Insulin Detemir [Levemir] 10 unit SQ HS syr Ipratropium-Albuterol Nebulize [Duoneb 0.5 mg-3 mg/3 ml Soln] 3 ml INHALATION RT-TID ampul.neb Mag Hydrox/Al Hydrox/Simeth [Maalox] 30 ml PO Q4HR PRN cup PRN Reason: Heartburn Melatonin 6 mg PO HS PRN tablet PRN Reason: insomia Nitroglycerin Sl Tabs [Nitrostat] 0.4 mg SUBLINGUAL Q5M PRN tab PRN Reason: Chest Pain Polyethylene Glycol 3350 [Miralax] 17 gm PO DAILY powd.pack predniSONE 50 mg PO DAILY tab Sacubitril/Valsartan [Entresto 24 mg-26 mg Tablet] 1 each PO BID tablet Sennosides-Docusate Sodium [Senokot-S] 1 each PO BID tab Continue Cevimeline [Evoxac] 30 mg PO BID Atorvastatin [Lipitor] 80 mg PO HS Gabapentin [Neurontin] 600 mg PO TID valACYclovir [Valtrex] 500 mg PO DAILY Omeprazole [PriLOSEC] 20 mg PO DAILY buPROPion HCL [Wellbutrin XL] 300 mg PO DAILY Loratadine [Claritin] 10 mg PO DAILY DULoxetine HCL [Cymbalta] 90 mg PO DAILY Tofacitinib Citrate [Xeljanz] 5 mg PO BID Discontinued metFORMIN HCL [Glucophage] 500 mg PO AC-BID Aspirin EC [Ecotrin Low Dose] 81 mg PO DAILY HYDROcodone/APAP 10-325MG [[place] 10-325] 1 tab PO TID PRN PRN Reason: Pain Atenolol 100 mg PO HS metFORMIN HCL [Glucophage] 1,000 mg PO AC-SUPPER Terazosin [Hytrin] 1 mg PO HS Memantine [Namenda] 10 mg PO BID No Action Methotrexate Sodium [Methotrexate] 25 mg PO Q7D Discharge Medication List Atorvastatin [Lipitor] 80 mg PO HS 04/29/14 [History] Cevimeline [Evoxac] 30 mg PO BID 04/29/14 [History] Gabapentin [Neurontin] 600 mg PO TID 04/29/14 [History] DULoxetine HCL [Cymbalta] 90 mg PO DAILY 12/01/17 [History] Loratadine [Claritin] 10 mg PO DAILY 12/01/17 [History] Methotrexate Sodium [Methotrexate] 25 mg PO Q7D 12/01/17 [History] Omeprazole [PriLOSEC] 20 mg PO DAILY 12/01/17 [History] Tofacitinib Citrate [Xeljanz] 5 mg PO BID 12/01/17 [History] buPROPion HCL [Wellbutrin XL] 300 mg PO DAILY 12/01/17 [History] valACYclovir [Valtrex] 500 mg PO DAILY 12/01/17 [History] Acetaminophen Tab [Tylenol] 650 mg PO Q6HR PRN tab 01/11/18 [Rx] Amoxic-Pot Clav 500-125 mg [Augmentin 500-125 mg] 1 each PO BID 7 Days tab [Rx] Aspirin 81 mg PO DAILY chew 01/11/18 [Rx] Azithromycin [Zithromax] 500 mg PO DAILY #5 tab 01/11/18 [Rx] Carvedilol [Coreg] 6.25 mg PO BID-W/MEALS tab 01/11/18 [Rx] Clopidogrel [Plavix] 75 mg PO DAILY tab 01/11/18 [Rx] Furosemide [Lasix] 60 mg PO BID@0900,1600 tab 01/11/18 [Rx] Insulin Aspart [NovoLOG (formulary)] 0 unit SQ ACHS vial 01/11/18 [Rx] Insulin Detemir [Levemir] 10 unit SQ HS syr 01/11/18 [Rx] Ipratropium-Albuterol Nebulize [Duoneb 0.5 mg-3 mg/3 ml Soln] 3 ml INHALATION RT -TID ampul.neb 01/11/18 [Rx] Mag Hydrox/Al Hydrox/Simeth [Maalox] 30 ml PO Q4HR PRN cup 01/11/18 [Rx] Melatonin 6 mg PO HS PRN tablet 01/11/18 [Rx] Nitroglycerin Sl Tabs [Nitrostat] 0.4 mg SUBLINGUAL Q5M PRN tab 01/11/18 [Rx] Polyethylene Glycol 3350 [Miralax] 17 gm PO DAILY powd.pack 01/11/18 [Rx] Sacubitril/Valsartan [Entresto 24 mg-26 mg Tablet] 1 each PO BID tablet [Rx] Sennosides-Docusate Sodium [Senokot-S] 1 each PO BID tab 01/11/18 [Rx] predniSONE 50 mg PO DAILY tab 01/11/18 [Rx] Follow up Appointment(s)/Referral(s): Edwin Ferraro MD [STAFF PHYSICIAN] - 01/25/18 6:00 pm (Sunday) Ismael Valadez MD [STAFF PHYSICIAN] - 1 Week Cornelio Garcia MD [Primary Care Provider] - 01/11/18 11:00 am (Sunday) Patient Instructions/Handouts: *Surgery [facility] - After Heart Catheterization - [facility] [facility] Instructions, Left Heart Catheterization (DC)
[2018-01-11 14:21] VITALS: BP 111/56; PULSE 86; TEMP 97.1
--- NOTE | 2018-01-11 15:20 | P.PN ---
Subjective Progress Note Date: 01/11/18 Principal diagnosis: Bilateral pneumonia, acute hypoxic respirator failure, non-infectious pneumonia like bronchiolitis obliterans occlusive pneumonia cannot be excluded, acute hypoxic respirator failure, bilateral pleural effusion, congestive heart failure likely acute systolic heart failure, coronary artery disease, non-ST segment elevated VT 01/11/2018, patient seen eval examined during the rounds clinically patient is doing well cuff congestion shortness of breath is improved able to ambulate now hemodynamic status stable, room air oxygen saturation ranging from 90-95% chest x-ray performed yesterday reviewed and compared with the prior x-ray, IV steroids have been discontinued patient likely will be discharged home later on today 01/10/2018, patient seen eval reexamined during the rounds clinically patient has been doing well awake and alert breathing comfortably patient is status post stent of the RCA hemodynamics is stable patient is being maximized on medical therapy she remains on oral broad-spectrum antibiotics, Solu-Medrol is just once a day and tolerating it well, labs reviewed medications reviewed him a chest x-ray performed today reviewed as well revealed cardiomegaly interstitial edema possible small pleural effusion 01/09/2018, patient seen eval examined during the rounds clinically patient has been doing well awake and alert breathing comfortably still get short of breath on activity and exertion patient has been tolerating his steroids and antibiotics fairly well labs reviewed medications reviewed recent chest x-ray reviewed as well, the culture results and reports are reviewed blood cultures 3 and negative sputum Gram stain no significant predominance of any organism is seen final culture results are pending would recommend to switch antibiotics and DC the Vanco and Zosyn and simply use Augmentin along with Zithromax, would continue IV Solu-Medrol once daily for now 01/08/2018, patient seen eval examined during the rounds patient is status post cardiac cath angiogram and another stent has been placed, from [facility] standpoint patient has been doing better denies any cough or sputum production chest x-ray performed yesterday reviewed care plan discussed with the cardiovascular services as well as primary services as well, for now we'll maintain patient on once a day Solu-Medrol along with antibiotics however they can be switched to oral agree with monitoring observing and maximize aeration of medical therapy for now patient does not appear to be ready for discharge for another 48-72 hours until more significant response has been seen of therapy 01/07/2018, patient seen eval examined during the rounds clinically patient has been doing slightly better in terms of breathing denies any cough or sputum production patient remains on broad-spectrum antibiotics and IV steroids tolerating well her to cath and angiogram has been postponed for tomorrow, patient appears to be responding well with IV steroids breathing treatments and antibiotics along with gentle diuresis will lowered down the Solu-Medrol to once daily today 01/06/2018, patient seen and evaluated examined during the rounds has been getting IV steroids antibiotics with significant improvement in respiratory status cardiovascular services following planning for cath and angiogram likely tomorrow labs reviewed medications reviewed care plan discussed with the patient at length 77-year-old female who was seen eval reexamined as per request of Dr. Garcia, patient is a nonsmoker but does have a history of complex and multiple medical problems and issues she is been complaining of increasing shortness of breath especially on exertion for last 1-1/2 month and last few weeks it got to a point that with activity and exertion she had to sit due to severe degree of dyspnea, patient was seen in the emergency department about a week ago was discharged now came back again and presented this time and emergency department earlier this morning with problems associated with bilateral chest discomfort more so on the left side feeling of generalized aches pains fatigue and some chest and back discomfort as well, patient has been admitted into the hospital a computed tomography scan of the chest was performed which I have reviewed Her history is significant for advanced rheumatoid arthritis for which she is on methotrexate once a week and Xeljanz 5 mg 2 times a day, her last use of oral prednisone was somewhere about a month to 2 months ago, her history is significant for coronary artery disease and angina history of TIAs type 2 diabetes mellitus deep venous thrombosis chronic fibromyalgia dyslipidemia hypertension hypertensive cardiovascular disease Objective - Vital Signs Vital signs: Vital Signs Temp 97.1 F L 01/11/18 12:00 Pulse 86 01/11/18 12:00 Resp 18 01/11/18 12:00 BP 111/56 01/11/18 12:00 Pulse Ox 93 L 01/11/18 12:00 Intake & Output 01/10/18 01/11/18 01/11/18 18:59 06:59 18:59 Intake Total 1018 240 580 Output Total 0 Balance 1018 240 580 Weight 83.2 kg 80.6 kg Intake: Intake, IV Titration 350 100 Amount Sodium Ferric Gluconat- 100 100 Sucrose 125 mg In Sodium Chloride 0.9% 100 ml @ 100 mls/hr IVPB DAILY RUKHSANA Rx#:[id number] Vancomycin 1,500 mg In 250 Sodium Chloride 0.9% 250 ml @ 125 mls/hr IVPB Q16H RUKHSANA Rx#:[id number] Oral 668 240 480 Output: Urine 0 Other: Voiding Method Toilet # Voids 1 2 1 - Exam General appearance: alert, in no apparent distress Head exam: Present: atraumatic Eye exam: Present: normal appearance, PERRL ENT exam: Present: normal oropharynx Neck exam: Present: normal inspection Respiratory exam: Present: Good bilateral air entry is present without any significant reason rhonchi or rub Cardiovascular Exam: Present: tachycardia GI/Abdominal exam: Present: soft. Absent: tenderness Extremities exam: Present: normal inspection. Absent: pedal edema, calf tenderness, examination the hand revealed finding consistent with advanced rheumatoid arthritis Back exam: Present: normal inspection. Absent: tenderness Neurological exam: Present: alert Psychiatric exam: Present: normal affect, normal mood Skin exam: Present: normal color - Labs CBC & Chem 7: 01/11/18 07:03 01/11/18 07:03 Labs: Abnormal Lab Results - Last 24 Hours (Table) 01/10/18 01/10/18 01/11/18 Range/Units 16:42 20:49 05:56 RBC (3.80-5.40) m/uL Hgb (11.4-16.0) gm/dL Hct (34.0-46.0) % RDW (11.5-15.5) % Sodium (137-145) mmol/L Chloride (98-107) mmol/L BUN (7-17) mg/dL Glucose (74-99) mg/dL POC Glucose (mg/dL) 272 H 139 H 126 H (75-99) mg/dL 01/11/18 01/11/18 01/11/18 Range/Units 07:03 07:03 11:15 RBC 3.05 L (3.80-5.40) m/uL Hgb 9.0 L (11.4-16.0) gm/dL Hct 28.1 L (34.0-46.0) % RDW 18.8 H (11.5-15.5) % Sodium 136 L (137-145) mmol/L Chloride 96 L (98-107) mmol/L BUN 19 H (7-17) mg/dL Glucose 113 H (74-99) mg/dL POC Glucose (mg/dL) 238 H (75-99) mg/dL Assessment and Plan Assessment: Acute hypoxic respiratory failure related to multi lobar pneumonia Bilateral pleural effusion likely related to acute heart failure, echo now reveals ejection fraction 20% Coronary artery disease and acute non-ST segment elevated VT, status post stent in RCA for details please refer to dictated report of cardiac cath angiogram performed earlier this morning Acute heart failure suspect acute on chronic systolic and/or diastolic heart failure Noninfectious complication like bronchiolitis obliterans occlusive pneumonia related to advanced rheumatoid arthritis cannot be excluded Suspect presence of severe pulmonary hypertension Rheumatoid lung and interstitial lung disease related to advanced rheumatoid arthritis cannot be excluded however patient needs to be evaluated once pneumonia clears up with a high resolution computed tomography scan which will be arranged on outpatient setting Plan: Agree with workup and therapy of heart failure with echocardiogram and cardiovascular evaluation, with cardiac cath and angiogram with findings as noted above Would also off of IV steroids Reviewed results of Sputum for Gram stain and culture Further evaluation of rheumatoid lung once pneumonia clears up Follow clinical course closely patient could benefit from bronchoscopy and transbronchial lung biopsy once more stable and if infiltrate do not clear Further recommendations pending plan of care as per clinical response of the patient Time with Patient: Greater than 30
== END 2018-01-11 16:47 | disposition home or self-care (01) | DRG 246 ==
LOC: EC 10:13 → 6SEL 13:04
PROVIDERS: ADMIT Internal Medicine; ATTEND Internal Medicine
PROC: B2111ZZ Fluoroscopy of Multiple Coronary Arteries using Low Osmolar Contrast (ICD-10-PCS; 2018-01-08)
PROC: 027034Z Dilation of Coronary Artery, One Artery with Drug-eluting Intraluminal Device, Percutaneous Approach (ICD-10-PCS; principal; 2018-01-08 11:57)
PROC: 4A023N7 Measurement of Cardiac Sampling and Pressure, Left Heart, Percutaneous Approach (ICD-10-PCS; 2018-01-08 11:57)
DX: I21.4 Non-ST elevation (NSTEMI) myocardial infarction (principal); I50.23 Acute on chronic systolic (congestive) heart failure; J18.9 Pneumonia, unspecified organism; J96.01 Acute respiratory failure with hypoxia; E87.2 Acidosis; J84.9 Interstitial pulmonary disease, unspecified; D50.9 Iron deficiency anemia, unspecified; D63.8 Anemia in other chronic diseases classified elsewhere; E11.42 Type 2 diabetes mellitus with diabetic polyneuropathy; E66.9 Obesity, unspecified; E78.5 Hyperlipidemia, unspecified; F32.9 Major depressive disorder, single episode, unspecified; F41.9 Anxiety disorder, unspecified; G47.00 Insomnia, unspecified; I08.0 Rheumatic disorders of both mitral and aortic valves; I11.0 Hypertensive heart disease with heart failure; I25.10 Atherosclerotic heart disease of native coronary artery without angina pectoris; I25.2 Old myocardial infarction; I25.5 Ischemic cardiomyopathy; J04.0 Acute laryngitis; J45.909 Unspecified asthma, uncomplicated; K44.9 Diaphragmatic hernia without obstruction or gangrene; K58.9 Irritable bowel syndrome, unspecified; K59.09 Other constipation; M05.10 Rheumatoid lung disease with rheumatoid arthritis of unspecified site; M79.7 Fibromyalgia; G89.29 Other chronic pain; K57.90 Diverticulosis of intestine, part unspecified, without perforation or abscess without bleeding; K64.9 Unspecified hemorrhoids; M19.90 Unspecified osteoarthritis, unspecified site; M54.9 Dorsalgia, unspecified; R59.0 Localized enlarged lymph nodes; I27.20 Pulmonary hypertension, unspecified; J84.89 Other specified interstitial pulmonary diseases; Z79.899 Other long term (current) drug therapy; Z68.33 Body mass index [BMI] 33.0-33.9, adult; Z79.82 Long term (current) use of aspirin; Z79.84 Long term (current) use of oral hypoglycemic drugs; Z85.828 Personal history of other malignant neoplasm of skin; Z91.040 Latex allergy status; Z88.2 Allergy status to sulfonamides; Z88.8 Allergy status to other drugs, medicaments and biological substances; Z91.048 Other nonmedicinal substance allergy status; Z86.73 Personal history of transient ischemic attack (TIA), and cerebral infarction without residual deficits; Z87.891 Personal history of nicotine dependence; Z86.718 Personal history of other venous thrombosis and embolism; Z90.49 Acquired absence of other specified parts of digestive tract; Z90.710 Acquired absence of both cervix and uterus; Z98.1 Arthrodesis status; Z95.5 Presence of coronary angioplasty implant and graft; Z98.42 Cataract extraction status, left eye; Z98.41 Cataract extraction status, right eye; Z96.1 Presence of intraocular lens; Z91.81 History of falling
CPT/HCPCS: 36415; 71046; 71275; 74018; 76604; 80048; 80053; 80061; 80202; 82550; 82553; 82607; 82728; 82746; 83036; 83090; 83540; 83550; 83605; 83735; 83880; 83921; 84484; 85025; 85049; 85347; 85379; 85610; 85730; 87040; 87070; 87205; 93005; 93306; 93458; 94640; 94760; 96365; 96368; 96375; 96376; 99291

== ENCOUNTER → 2018-02-18 | Outpatient (CLI) | payer MEDICARE ==
[2018-02-18 17:06] LABS: Anion Gap 6 mmol/L; Blood Urea Nitrogen 19 mg/dL (7-17); Calcium 9.8 mg/dL (8.4-10.2); Carbon Dioxide 26 mmol/L (22-30); Chloride 104 mmol/L (98-107); Glucose 82 mg/dL (74-99); Magnesium 2.2 mg/dL (1.6-2.3); Potassium 5.4 mmol/L (3.5-5.1); Sodium 136 mmol/L (137-145)
== END | disposition home or self-care (01) ==
LOC: LABWHC1 16:26
PROVIDERS: ATTEND Internal Medicine
DX: E87.8 Other disorders of electrolyte and fluid balance, not elsewhere classified (principal); N18.3 Chronic kidney disease, stage 3 (moderate)
CPT/HCPCS: 36415; 80048; 83735

== ENCOUNTER → 2018-03-04 | Outpatient (CLI) | payer MEDICARE ==
[2018-03-04 16:36] LABS: Anion Gap 8 mmol/L; Blood Urea Nitrogen 23 mg/dL (7-17); Calcium 9.4 mg/dL (8.4-10.2); Carbon Dioxide 25 mmol/L (22-30); Chloride 105 mmol/L (98-107); Glucose 112 mg/dL (74-99); Sodium 138 mmol/L (137-145)
[2018-03-04 16:53] LABS: T4, Free (Free Thyroxine) 0.93 ng/dL (0.78-2.19)
== END | disposition home or self-care (01) ==
LOC: LABWHC1 15:45
PROVIDERS: ATTEND Internal Medicine
DX: E87.5 Hyperkalemia (principal); E05.90 Thyrotoxicosis, unspecified without thyrotoxic crisis or storm
CPT/HCPCS: 36415; 80048; 84439; 84443

== ENCOUNTER 2018-07-18 08:45 | Emergency (ER) | payer MEDICARE ==
[2018-07-18 09:06] VITALS: RESP 18
[2018-07-18] MEDS ORDERED: ACETAMINOPHEN TAB 500 MG TAB PO STA (09:47)
--- NOTE | 2018-07-18 10:20 | ED ---
Fall HPI - General Chief Complaint: Fall Stated Complaint: FALL, HEAD INJURY Time Seen by Provider: 07/18/18 09:11 Source: patient, RN notes reviewed, old records reviewed Mode of arrival: wheelchair - History of Present Illness Initial Comments: Patient is a 77-year-old female who was sent by [employer]. She presents [facility] today for headache after falling from a standing positioning hitting her head one week ago. Short she had no loss consciousness at the time. She states she's had persistent dizziness and headache since then. She is not on any blood thinners. Patient reports that her head went through the drywall of her house. She states that she's had no vomiting episodes. She denies any extremity, chest pain or abdominal pain. She denies any back pain related to the fall. Patient also complains of some neck pain with position. Patient denies any recent fever, chills, shortness of breath, chest pain, back pain, abdominal pain, nausea vomiting, numbness or tingling, dysuria or hematuria, constipation or diarrhea, visual changes, or any other current symptoms - Related Data Home Medications Medication Instructions Recorded Confirmed Atorvastatin [Lipitor] 80 mg PO HS 04/29/14 07/18/18 Cevimeline [Evoxac] 30 mg PO BID 04/29/14 07/18/18 Gabapentin [Neurontin] 600 mg PO TID 04/29/14 07/18/18 DULoxetine HCL [Cymbalta] 30 mg PO TID 12/01/17 07/18/18 Omeprazole [PriLOSEC] 20 mg PO DAILY 12/01/17 07/18/18 Tofacitinib Citrate [Xeljanz] 5 mg PO BID 12/01/17 07/18/18 valACYclovir [Valtrex] 500 mg PO DAILY 12/01/17 07/18/18 Aspirin EC [Ecotrin Low Dose] 81 mg PO DAILY 07/18/18 07/18/18 Carvedilol [Coreg] 6.25 mg PO BID 07/18/18 07/18/18 Cetirizine HCl [Zyrtec] 10 mg PO BID 07/18/18 07/18/18 Cyclobenzaprine [Flexeril] 10 mg PO TID PRN 07/18/18 07/18/18 Furosemide [Lasix] 20 mg PO DAILY 07/18/18 07/18/18 Insulin Aspart (Niacinamide) See Protocol SQ AC-TID 07/18/18 07/18/18 [Fiasp 100 Unit/ml Flextouch] Insulin Glargine,Hum.rec.anlog 10 unit SQ HS 07/18/18 07/18/18 [Lantus Solostar] Metoprolol Succinate (ER) [Toprol 25 mg PO DAILY 07/18/18 07/18/18 XL] Sennosides-Docusate Sodium 1 tab PO BID 07/18/18 07/18/18 [Senokot-S] busPIRone HCl [Buspar] 5 mg PO BID 07/18/18 07/18/18 rOPINIRole HCL [Requip] 0.25 mg PO HS 07/18/18 07/18/18 Previous Rx's Medication Instructions Recorded Clopidogrel [Plavix] 75 mg PO DAILY tab 01/11/18 Nitroglycerin Sl Tabs [Nitrostat] 0.4 mg SUBLINGUAL Q5M PRN tab 01/11/18 Polyethylene Glycol 3350 [Miralax] 17 gm PO DAILY powd.pack 01/11/18 Acetaminophen Tab [Tylenol Tab] 500 mg PO Q4H #20 tablet 07/18/18 Meclizine [Antivert] 25 mg PO TID #12 tab 07/18/18 Ondansetron Odt [Zofran Odt] 4 mg PO Q8HR PRN #12 tab 07/18/18 Allergies Allergy/AdvReac Type Severity Reaction Status Date / Time etanercept [From Enbrel] Allergy Rash/Hives Verified 07/18/18 09:38 latex Allergy Itching Verified 07/18/18 09:38 Sulfa (Sulfonamide Allergy Rash/Hives Verified 07/18/18 09:38 Antibiotics) tape Allergy Rash/Hives Uncoded 07/18/18 09:06 Review of Systems ROS Statement: Those systems with pertinent positive or pertinent negative responses have been documented in the HPI. ROS Other: All systems not noted in ROS Statement are negative. Past Medical History Past Medical History: Coronary Artery Disease (CAD), Chest Pain / Angina, CVA/ TIA, Diabetes Mellitus, Deep Vein Thrombosis (DVT), Eye Disorder, Fibromyalgia, Hyperlipidemia, Hypertension, Myocardial Infarction (PA), Osteoarthritis (OA), Rheumatoid Arthritis (RA) Additional Past Medical History / Comment(s): "Leaky" heart valve, NIDDM type II , neuropathy R hand and feet, DVT R calf, chronic pain, chronic back pain, DDD, anemia, hiatal hernia, hemorrhoids, IBS, diverticulosis, constipation, sinus problems, falls, skin cancer with removal, shingelle "break outs"- last time a few months ago. Last Myocardial Infarction Date:: 2011 History of Any Multi-Drug Resistant Organisms: None Reported Past Surgical History: Appendectomy, Cholecystectomy, Heart Catheterization, Heart Catheterization With Stent, Hernia Repair, Hysterectomy, Tonsillectomy Additional Past Surgical History / Comment(s): PCI with multiple stents, ventral hernia repair, colonoscopy, bilateral cataract removals, skin cancer removals. Past Anesthesia/Blood Transfusion Reactions: No Reported Reaction Date of Last Stent Placement:: 2011 Past Psychological History: Depression Smoking Status: Former smoker Past Alcohol Use History: None Reported Past Drug Use History: None Reported - Past Family History Father Additional Family Medical History / Comment(s): pt stated had heart issues, but not sure what Mother Additional Family Medical History / Comment(s): leaking valve General Exam - General Exam Comments Initial Comments: 77-year-old female. Alert and oriented 3. Limitations: physical limitation General appearance: alert, in no apparent distress Head exam: Present: atraumatic, normocephalic, normal inspection, other ( Tenderness over the top of her scalp over the bilateral parietal regions.) Eye exam: Present: normal appearance, PERRL, EOMI. Absent: scleral icterus, conjunctival injection, periorbital swelling ENT exam: Present: normal exam, mucous membranes moist Neck exam: Present: normal inspection. Absent: tenderness, meningismus, lymphadenopathy Respiratory exam: Present: normal lung sounds bilaterally. Absent: respiratory distress, wheezes, rales, rhonchi, stridor Cardiovascular Exam: Present: regular rate, normal rhythm, normal heart sounds. Absent: systolic murmur, diastolic murmur, rubs, gallop, clicks GI/Abdominal exam: Present: soft, normal bowel sounds. Absent: distended, tenderness, guarding, rebound, rigid Extremities exam: Present: normal inspection, full ROM, normal capillary refill. Absent: tenderness, pedal edema, joint swelling, calf tenderness Back exam: Present: normal inspection Neurological exam: Present: alert, oriented X3, CN II-XII intact Expanded Patient oriented to: Present: person, place, time Speech: Present: fluid speech Cranial nerves: EOM's Intact: Normal Cerebellar function: Finger to Nose: Normal Upper motor neuron: Pronator Drift: Normal Sensory exam: Upper Extremity Light Touch: Normal, Lower Extremity Light Touch: Normal Motor strength exam: RUE: 5, LUE: 5, RLE: 5, LLE: 5 Eye Response: (4) open spontaneously Motor Response: (6) obeys commands Verbal Response: (5) oriented Heber Total: 15 Psychiatric exam: Present: normal affect, normal mood Skin exam: Present: warm, dry, intact, normal color. Absent: rash Course Vital Signs 07/18/18 09:02 Temperature 98.2 F Pulse Rate 79 Respiratory 18 Rate Blood Pressure 117/68 O2 Sat by Pulse 99 Oximetry Medical Decision Making - Medical Decision Making 77-year-old female presents for his apartment today with chief complaint of fall 1 week ago where she hit her head on the drywall. She has no neurological deficits. She complains of tenderness to palpation over the front of her scalp. A She's had history of surgery on her spine. She has no neurological paresthesias or deficits. She is on plavix. At this time her CT of the brain is completed and negative for any acute process. CT of the cervical spine shows no acute subluxation. Patient will be discharged with concussion diagnoses. Discussed that she can follow-up with primary care provider neurology. Discussed all return parameters and all questions answered. - Radiology Data Radiology results: report reviewed CT of the brain shows age-related atrophy and chronic small vessel ischemic change without acute intracranial process seen at this time. CT of the cervical spine shows no acute fracture subluxation. Disposition Clinical Impression: Concussion Disposition: HOME SELF-CARE Condition: Good Prescriptions: Acetaminophen Tab [Tylenol Tab] 500 mg PO Q4H #20 tablet Meclizine [Antivert] 25 mg PO TID #12 tab Ondansetron Odt [Zofran Odt] 4 mg PO Q8HR PRN #12 tab PRN Reason: Nausea Is patient prescribed a controlled substance at d/c from ED?: No Referrals: Cornelio Garcia MD [Primary Care Provider] - 1-2 days Time of Disposition: 10:39
--- NOTE | 2018-07-18 10:27 | CT ---
EXAMINATION TYPE: CT brain marianela tomlinson DATE OF EXAM: 07/18/2018 COMPARISON: 05/23/2017 HISTORY: fall, headache CT DLP: 1379.[address] of the brain was performed. The ventricles, basal cisterns and sulci overlying the cerebral convexities demonstrate mild enlargem ent. There is no evidence for intracranial hemorrhage or sulcal effacement. There is decreased attenuatio n about the periventricular white matter and deep white matter of both cerebral hemispheres, compatib le with chronic small vessel ischemia. No mass effects are seen. If symptoms persist consider MRI. Osseous calvarium is intact. IMPRESSION: 1. Age related atrophic and chronic small vessel ischemic change without acute intracranial process seen at this time. CT Cervical Spine: Unenhanced CT of the cervical spine was performed with bone and soft tissue window settings submitted . Coronal and sagittal reconstruction is obtained. There is normal alignment and prevertebral soft tissues. No evidence for acute cervical fracture . Scattered degenerative disc disease and spondylosis. Biapical scarring. IMPRESSION: 1. No evidence for acute fracture or subluxation of the cervical spine.
[2018-07-18 11:04] VITALS: BP 114/76; PULSE 73; TEMP 97.3
== END 2018-07-18 11:07 | disposition home or self-care (01) ==
LOC: EC 08:45
DX: S06.0X0A Concussion without loss of consciousness, initial encounter (principal); M54.2 Cervicalgia; I11.9 Hypertensive heart disease without heart failure; E11.40 Type 2 diabetes mellitus with diabetic neuropathy, unspecified; I25.119 Atherosclerotic heart disease of native coronary artery with unspecified angina pectoris; I25.2 Old myocardial infarction; E78.5 Hyperlipidemia, unspecified; G89.29 Other chronic pain; F32.9 Major depressive disorder, single episode, unspecified; M06.9 Rheumatoid arthritis, unspecified; K58.9 Irritable bowel syndrome, unspecified; Z87.891 Personal history of nicotine dependence; Z79.899 Other long term (current) drug therapy; Z79.82 Long term (current) use of aspirin; Z79.4 Long term (current) use of insulin; Z91.040 Latex allergy status; Z88.2 Allergy status to sulfonamides; Z91.048 Other nonmedicinal substance allergy status; Z88.8 Allergy status to other drugs, medicaments and biological substances; Z87.19 Personal history of other diseases of the digestive system; Z85.828 Personal history of other malignant neoplasm of skin; Z86.69 Personal history of other diseases of the nervous system and sense organs; Z98.890 Other specified postprocedural states; Z95.5 Presence of coronary angioplasty implant and graft; Z90.49 Acquired absence of other specified parts of digestive tract; Z98.42 Cataract extraction status, left eye; Z98.41 Cataract extraction status, right eye; W18.39XA Other fall on same level, initial encounter; W22.01XA Walked into wall, initial encounter; Y92.009 Unspecified place in unspecified non-institutional (private) residence as the place of occurrence of the external cause
CPT/HCPCS: 70450; 72125; 99284

== ENCOUNTER → 2018-08-08 | Outpatient (CLI) | payer MEDICARE ==
--- NOTE | 2018-08-08 13:47 | XR ---
Left hip HISTORY: Trauma and pain 2 views of the left hip Bone mineralization, joint spaces and alignment are maintained. IMPRESSION: No fracture or dislocation. Consider hip MRI for persistent symptoms.
--- NOTE | 2018-08-08 13:49 | XR ---
Lumbar spine HISTORY: Trauma and pain 5 views of the lumbosacral spine, correlation plain film 02/24/2013 Lumbar vertebral bodies show preserved height, and there is an anterolisthesis grade 1 at L4-5. Bone mineralization is reduced, stable. Postop changes are noted anterior abdomen, right upper quadrant. T here are vascular calcifications present. Loss of disc height present L4-5, L5-S1. There is no spondylolysis or spondylolisthesis. Sclerosis in the posterior elements compatible with f acet arthropathy. IMPRESSION: Degenerative disc disease, osteopenia, facet arthropathy. No fracture or subluxation. MRI may be of benefit.
--- NOTE | 2018-08-08 13:51 | XR ---
Thoracic spine HISTORY: Trauma and pain 3 views of the thoracic spine correlated to prior exam 02/24/2013 No significant interval change. There is multilevel spondylosis. Loss of disc height present at the i ntervertebral levels of the lower thoracic spine. Present vertebral bodies show decreased mineralizat ion which could limit sensitivity. Thoracic vertebral bodies show preserved height and alignment. Pos top changes are noted in the cervical spine. There is a mild spinal curvature. IMPRESSION: Degenerative disc disease and osteopenia. No fracture or subluxation.
== END | disposition home or self-care (01) ==
LOC: RADXRMAIN 11:43
PROVIDERS: ATTEND Internal Medicine
DX: M85.88 Other specified disorders of bone density and structure, other site (principal); M51.36 Other intervertebral disc degeneration, lumbar region; M46.96 Unspecified inflammatory spondylopathy, lumbar region; M06.9 Rheumatoid arthritis, unspecified; M54.5 Low back pain; M25.552 Pain in left hip; M51.34 Other intervertebral disc degeneration, thoracic region
CPT/HCPCS: 72072; 72110; 73502

== ENCOUNTER → 2018-08-23 | Outpatient (CLI) | payer MEDICARE ==
[2018-08-23 17:55] LABS: Calcium 9.5 mg/dL (8.4-10.2); Magnesium 2.1 mg/dL (1.6-2.3)
--- NOTE | 2018-08-24 09:59 | CT ---
EXAMINATION TYPE: CT pelvis wo con DATE OF EXAM: 08/23/2018 COMPARISON: None. HISTORY: low back and left hip pain following fall. CT DLP: 533.2 mGycm Automated exposure control for dose reduction was used. FINDINGS: Sacrum and coccyx are intact. Pelvis is intact. Sacroiliac joints are symmetric and felt within pantera l limits. There is mild to moderate axial joint space loss and mild acetabular spurring in both hips without acute fracture or dislocation. Pubic symphysis is intact. No suspicious bowel dilatation. Uterus is surgically absent or markedly atrophic. Remnant ovaries are not suspiciously enlarged. No concerning pelvic fluid collection is present. No suspicious groin rock nopathy or hernia. There is partial visualization of coils over the anterior abdominal wall from prio r hernia repair surgery. IMPRESSION: NO ACUTE FRACTURE OR DISLOCATION IN THE PELVIS.
--- NOTE | 2018-08-24 10:05 | CT ---
EXAMINATION TYPE: CT lumbar spine wo con DATE OF EXAM: 08/23/2018 5:16 PM COMPARISON: CT lumbar spine May 23, 2017 HISTORY: low back and left hip pain following fall. CT DLP: 1049.6 mGycm Automated exposure control for dose reduction was used. Unenhanced CT of the lumbar spine was performed. Bone and soft tissue window settings are submitted as well as coronal and sagittal reconstructions. 5 lumbar-type vertebra are redemonstrated. No acute fracture or dislocation is present. There is pers istent grade 1 anterolisthesis of L4 on L5. Persistent mild disc space narrowing L4-L5 level. Vertebr al body heights and disc space heights are maintained. No new large posterior disc herniations are se en. Review of axial images redemonstrate mild facet degenerative changes L2-L3 level with mild effacement posterior lateral thecal sac. No significant change from prior. Axial images at L3-L4 level redemonstrate mild to moderate facet degenerative changes and ligament fl avum hypertrophy bilaterally effacing posterior lateral thecal sac. There is mild broad disc bulge mi ldly effacing anterior thecal sac on axial image 58. There is mild bilateral anterior inferior neural foraminal narrowing. Axial images at the L4-L5 level show spondylolisthesis with moderate to advanced facet degenerative c hanges bilaterally. There is broad disc protrusions. There is effacement of anterior posterior latera l thecal sac on axial image 68. Most prominent spinal canal stenosis is seen at this level similar to prior study axial image 58. There is mild right and moderate left-sided anterior inferior neural for aminal narrowing similar to prior. Axial images at L5-S1 level show moderate facet degenerative changes bilaterally. Spinal canal is pre served. Bilateral neural foramina are patent. There is redemonstration of 2 nonobstructing calculi left kidney axial image 31 measuring up to 3 mm in size. Some cortical thinning in both kidneys is present. Mild to moderate calcified plaque in aort a extending into branch vessels is redemonstrated. IMPRESSION: Multilevel degenerative changes redemonstrated. Most prominent findings L4-L5 level due t o degenerative changes and spondylolisthesis. No significant change from prior CT.
== END | disposition home or self-care (01) ==
LOC: RADCTMAIN 16:49
PROVIDERS: ATTEND Psychiatry & Neurology Neurology
DX: M47.816 Spondylosis without myelopathy or radiculopathy, lumbar region (principal); M43.16 Spondylolisthesis, lumbar region; M53.3 Sacrococcygeal disorders, not elsewhere classified; M25.552 Pain in left hip; M85.80 Other specified disorders of bone density and structure, unspecified site; Z51.81 Encounter for therapeutic drug level monitoring
CPT/HCPCS: 36415; 72131; 72192; 82306; 82310; 83735

== ENCOUNTER → 2018-09-09 | Outpatient (CLI) | payer MEDICARE ==
[2018-09-09 10:06] LABS: Appearance,Urine Clear (Clear); Bilirubin,Urine Negative (Negative); Blood,Urine Negative (Negative); Color,Urine Yellow; Glucose,Urine (UA) Negative (Negative); Hyaline Casts,Urine 20 /lpf (0-2); Ketones,Urine Negative (Negative); Leukocyte Esterase,Urine Small (Negative); Mucus,Urine Rare /hpf; Nitrite,Urine Negative (Negative); Protein,Urine Negative (Negative); RBC,Urine 1 /hpf (0-5); Specific Gravity,Urine 1.016 (1.001-1.035); Squamous Epithelial Cell,Urine 6 /hpf (0-4); Urobilinogen,Urine <2.0 mg/dL (<2.0); WBC,Urine 1 /hpf (0-5)
[2018-09-09 10:09] LABS: Basophils # (A) 0.1 k/uL (0-0.2); Basophils % (A) 1 %; Eosinophils # (A) 0.2 k/uL (0-0.7); Eosinophils % (A) 2 %; HCT 34.6 % (34.0-46.0); HGB 11.3 gm/dL (11.4-16.0); Lymphocytes % (A) 29 %; MCH 30.8 pg (25.0-35.0); MCHC 32.7 g/dL (31.0-37.0); MCV 94.1 fL (80.0-100.0); Mean Platelet Volume 6.9; Monocytes # (A) 0.4 k/uL (0-1.0); Monocytes % (A) 6 %; Neutrophils # (A) 4.1 k/uL (1.3-7.7); Neutrophils % (A) 61 %; Platelet Count 225 k/uL (150-450); RBC 3.68 m/uL (3.80-5.40); RDW 14.5 % (11.5-15.5); WBC 6.8 k/uL (3.8-10.6)
[2018-09-09 11:43] LABS: Erythrocyte Sedimentation Rate 18 mm/hr (0-20)
[2018-09-09 18:41] LABS: ALT 20 U/L (8-44); AST 26 U/L (13-35); Albumin/Globulin Ratio 2.15 (1.60-3.17); Alkaline Phosphatase 76 U/L (41-126); C Reactive Protein <0.4 mg/dL (0.0-0.8); Calcium 9.1 mg/dL (8.7-10.3); Carbon Dioxide 26.9 mmol/L (21.6-31.8); Chloride 107 mmol/L (96-109); Cholesterol 142 mg/dL (0-200); Creatine Kinase 76 U/L (26-186); Glucose 105 mg/dL (70-110); LDL Cholesterol,Calculated 65.4 mg/dL (0.0-131.0); Potassium 4.6 mmol/L (3.5-5.5); Sodium 142 mmol/L (135-145); Total Bilirubin 0.3 mg/dL (0.3-1.2); Total Protein 6.3 g/dL (6.2-8.2)
[2018-09-09 21:31] LABS: Hemoglobin A1C 6.9 % (4.0-6.0)
== END | disposition home or self-care (01) ==
LOC: LABWHC1 09:23
PROVIDERS: ATTEND Internal Medicine
DX: E11.9 Type 2 diabetes mellitus without complications (principal); E78.5 Hyperlipidemia, unspecified; I10 Essential (primary) hypertension; E55.9 Vitamin D deficiency, unspecified; M06.9 Rheumatoid arthritis, unspecified
CPT/HCPCS: 36415; 80053; 80061; 81001; 82306; 82550; 83036; 84443; 85025; 85652; 86140

== ENCOUNTER → 2019-01-25 | Outpatient (CLI) | payer MEDICARE ==
--- NOTE | 2019-01-25 15:18 | XR ---
EXAMINATION TYPE: XR foot complete RT DATE OF EXAM: 01/25/2019 COMPARISON: NONE HISTORY: Foot pain TECHNIQUE: 3 views FINDINGS: There is mild subluxation deformity at the second and third MP joints with minimal spurring . There is no osteopenia. I see no fracture. Metatarsals are intact. The big toe appears intact. IMPRESSION: Mild subluxation deformity of the second and third MP joints. No fracture seen. This coul d relate to inflammatory arthritis.
== END | disposition home or self-care (01) ==
LOC: RADXRMAIN 14:34
PROVIDERS: ATTEND Internal Medicine
DX: S93.331A Other subluxation of right foot, initial encounter (principal); M21.6X1 Other acquired deformities of right foot
CPT/HCPCS: 84550

== ENCOUNTER 2019-02-01 17:00 | Observation (INO) | payer MEDICARE ==
[2019-02-01] MEDS ORDERED: ASPIRIN 81 MG PO STA (17:55)
[2019-02-01] MEDS ORDERED: SODIUM CHLORIDE 0.9% 500 ML 500 ML IV STA (17:55)
[2019-02-01] MEDS ORDERED: SODIUM CHLORIDE 0.9% 1,000 ML IV STA (17:58)
--- NOTE | 2019-02-01 18:01 | ED ---
General Adult HPI - General Chief complaint: Chest Pain Stated complaint: chest pain Time Seen by Provider: 02/01/19 17:29 Source: patient Mode of arrival: wheelchair Limitations: no limitations - History of Present Illness Initial comments: Dictation was produced using [employer] dictation software. please excuse any grammatical, word or spelling errors. Chief Complaint: 78-year-old female with past medical history of coronary artery disease, status post stent, diabetes presents with chest pain. History of Present Illness: She is 78-year-old female she states she is here today because of some chest pain. Patient states that yesterday she tripped causing her to fall and strike her head and neck. Patient denies any loss of consciousness. Patient also reports that she hurt her chest after the incident. Patient went to bed tonight and was warm and was sweaty. Disorder she woke up and felt worsening chest pain. States the pain radiates to her left scapula. She also feels some spasms to her left upper extremity. Patient has history of coronary artery disease. She denies being on any anticoagulation medications at this time. Patient had a coronary artery stent placed November of last year. States that her pain is worse with movement and deep inspiration. However sometimes does feel dull. Denies any coughing. She is in mild shortness of breath. The ROS documented in this emergency department record has been reviewed and confirmed by me. Those systems with pertinent positive or negative responses coles ve been documented in the HPI. All other systems are other negative and/or noncontributory. PHYSICAL EXAM: General Impression: Alert and oriented x3, not in acute distress HEENT: Normocephalic atraumatic, extra-ocular movements intact, pupils equal and reactive to light bilaterally, mucous membranes moist. Cardiovascular: Heart regular rate and rhythm, S1&S2 audible, no murmurs, rubs or gallops Chest: Lungs clear to auscultation bilaterally, no rhonchi, no wheeze, no rales Abdomen: Bowel sounds present, abdomen soft, non-tender, non-distended, no organomegaly Musculoskeletal: Pulses present and equal in all extremities, no peripheral edema Motor: no focal deficits noted Neurological: CN II-XII grossly intact, no focal motor or sensory deficits noted Skin: Intact with no visualized rashes Psych: Normal affect and mood ED course: 78-year-old female multiple comorbidities presents with chest pain. His upon arrival shows heart rate of 103, blood pressure 72/47. Rest of vital signs within acceptable limits. EKG shows nonspecific changes. Patient did take a nitroglycerin without any improvement of her symptoms. Repeat blood pressure is within acceptable limits.Laboratory evaluation was obtained. CBC unremarkable. Coag panel unremarkable. D-dimer is 4.64. Patient had a candidate for CTA given elevated renal markers. Metabolic panel was obtained showing elevated renal markers. Patient does have a troponin of 0.02. Patient has any active pain symptoms at this time. VQ scan was obtained showing low probability for pulmonary emboli. Chest CT was obtained because patient is chest pain and fell showing no acute processes. No acute traumatic injuries noted to the CT of the head and spine. Given patient's clinical presentation we will have patient admitted observation for serial troponins and cardiology consultation. Patient's clinical presentation consistent with atypical chest pain with typical features. Patient be admitted observation for serial troponins. Patient was given aspirin. EKG interpretation: Ventricular rate 92, normal sinus rhythm,. Interval 160, Q 72, QTC 472. No MA prolongation, no QTC prolongation, no ST changes. There are T-wave inversions in the high lateral leads.. EKG compared to 01/09/2018 showing no changes. Overall, this EKG is unremarkable - Related Data Home Medications Medication Instructions Recorded Confirmed Atorvastatin [Lipitor] 80 mg PO HS 04/29/14 02/01/19 Cevimeline [Evoxac] 30 mg PO BID 04/29/14 02/01/19 Gabapentin [Neurontin] 600 mg PO TID 04/29/14 02/01/19 DULoxetine HCL [Cymbalta] 30 mg PO TID 12/01/17 02/01/19 Omeprazole [PriLOSEC] 20 mg PO DAILY 12/01/17 02/01/19 Tofacitinib Citrate [Xeljanz] 5 mg PO BID 12/01/17 02/01/19 valACYclovir [Valtrex] 500 mg PO DAILY 12/01/17 02/01/19 Aspirin EC [Ecotrin Low Dose] 81 mg PO DAILY 07/18/18 02/01/19 Cyclobenzaprine [Flexeril] 10 mg PO TID PRN 07/18/18 02/01/19 Furosemide [Lasix] 20 mg PO DAILY 07/18/18 02/01/19 Insulin Aspart (Niacinamide) See Protocol SQ AC-TID 07/18/18 02/01/19 [Fiasp 100 Unit/ml Flextouch] Insulin Glargine,Hum.rec.anlog 10 unit SQ HS 07/18/18 02/01/19 [Lantus Solostar] Metoprolol Succinate (ER) [Toprol 25 mg PO DAILY 07/18/18 02/01/19 XL] Sennosides-Docusate Sodium 1 tab PO BID 07/18/18 02/01/19 [Senokot-S] busPIRone HCl [Buspar] 5 mg PO BID 07/18/18 02/01/19 rOPINIRole HCL [Requip] 0.25 mg PO HS 07/18/18 02/01/19 Loratadine [Claritin] 10 mg PO DAILY PRN 02/01/19 02/01/19 Previous Rx's Medication Instructions Recorded Clopidogrel [Plavix] 75 mg PO DAILY tab 01/11/18 Nitroglycerin Sl Tabs [Nitrostat] 0.4 mg SUBLINGUAL Q5M PRN tab 01/11/18 Polyethylene Glycol 3350 [Miralax] 17 gm PO DAILY powd.pack 01/11/18 Allergies Allergy/AdvReac Type Severity Reaction Status Date / Time etanercept [From Enbrel] Allergy Rash/Hives Verified 02/01/19 19:10 latex Allergy Itching Verified 02/01/19 19:10 Sulfa (Sulfonamide Allergy Rash/Hives Verified 02/01/19 19:10 Antibiotics) tape Allergy Rash/Hives Uncoded 07/18/18 09:06 Review of Systems ROS Statement: Those systems with pertinent positive or pertinent negative responses have been documented in the HPI. ROS Other: All systems not noted in ROS Statement are negative. Past Medical History Past Medical History: Coronary Artery Disease (CAD), Chest Pain / Angina, CVA/TIA, Diabetes Mellitus, Deep Vein Thrombosis (DVT), Eye Disorder, Fibromyalgia, Hyperlipidemia, Hypertension, Myocardial Infarction (RI), Osteoarthritis (OA), Rheumatoid Arthritis (RA) Additional Past Medical History / Comment(s): "Leaky" heart valve, NIDDM type II, neuropathy R hand and feet, DVT R calf, chronic pain, chronic back pain, DDD, anemia, hiatal hernia, hemorrhoids, IBS, diverticulosis, constipation, sinus problems, falls, skin cancer with removal, shingelle "break outs"- last time a few months ago. Last Myocardial Infarction Date:: 2011 History of Any Multi-Drug Resistant Organisms: None Reported Past Surgical History: Appendectomy, Cholecystectomy, Heart Catheterization, Heart Catheterization With Stent, Hernia Repair, Hysterectomy, Tonsillectomy Additional Past Surgical History / Comment(s): PCI with multiple stents, ventral hernia repair, colonoscopy, bilateral cataract removals, skin cancer removals. Past Anesthesia/Blood Transfusion Reactions: No Reported Reaction Date of Last Stent Placement:: 2011 Past Psychological History: Depression Smoking Status: Former smoker Past Alcohol Use History: None Reported Past Drug Use History: None Reported - Past Family History Father Additional Family Medical History / Comment(s): pt stated had heart issues, but not sure what Mother Additional Family Medical History / Comment(s): leaking valve General Exam Limitations: no limitations Course Vital Signs 02/01/19 02/01/19 02/01/19 17:04 18:05 18:38 Temperature 97.6 F Pulse Rate 103 H 86 Respiratory 20 18 Rate Blood Pressure 72/47 109/57 107/53 O2 Sat by Pulse 98 99 99 Oximetry 02/01/19 21:50 Temperature Pulse Rate 86 Respiratory 18 Rate Blood Pressure 125/57 O2 Sat by Pulse 99 Oximetry Medical Decision Making - Lab Data Result diagrams: 02/01/19 17:45 02/01/19 17:45 Lab Results 02/01/19 02/01/19 02/01/19 Range/Units 17:45 17:45 17:45 WBC 10.4 (3.8-10.6) k/uL RBC 4.13 (3.80-5.40) m/uL Hgb 12.6 (11.4-16.0) gm/dL Hct 36.7 (34.0-46.0) % MCV 88.8 (80.0-100.0) fL MCH 30.6 (25.0-35.0) pg MCHC 34.4 (31.0-37.0) g/dL RDW 15.3 (11.5-15.5) % Plt Count 290 (150-450) k/uL Neutrophils % 67 % Lymphocytes % 22 % Monocytes % 7 % Eosinophils % 1 % Basophils % 1 % Neutrophils # 7.0 (1.3-7.7) k/uL Lymphocytes # 2.3 (1.0-4.8) k/uL Monocytes # 0.7 (0-1.0) k/uL Eosinophils # 0.1 (0-0.7) k/uL Basophils # 0.1 (0-0.2) k/uL PT 9.9 (9.0-12.0) sec INR 0.9 (<1.2) APTT 21.9 L (22.0-30.0) sec D-Dimer 4.64 H (<0.60) mg/L FEU Sodium 136 L (137-145) mmol/L Potassium 4.5 (3.5-5.1) mmol/L Chloride 99 (98-107) mmol/L Carbon Dioxide 21 L (22-30) mmol/L Anion Gap 16 mmol/L BUN 31 H (7-17) mg/dL Creatinine 1.64 H (0.52-1.04) mg/dL Est GFR (CKD-EPI)AfAm 35 (>60 ml/min/1.73 sqM) Est GFR (CKD-EPI)NonAf 30 (>60 ml/min/1.73 sqM) Glucose 132 H (74-99) mg/dL Calcium 10.0 (8.4-10.2) mg/dL Magnesium 2.1 (1.6-2.3) mg/dL Total Bilirubin 0.6 (0.2-1.3) mg/dL AST 26 (14-36) U/L ALT 17 (9-52) U/L Alkaline Phosphatase 122 (38-126) U/L Troponin I (0.000-0.034) ng/mL Total Protein 7.4 (6.3-8.2) g/dL Albumin 4.6 (3.5-5.0) g/dL Lipase 83 (23-300) U/L 02/01/19 Range/Units 17:45 WBC (3.8-10.6) k/uL RBC (3.80-5.40) m/uL Hgb (11.4-16.0) gm/dL Hct (34.0-46.0) % MCV (80.0-100.0) fL MCH (25.0-35.0) pg MCHC (31.0-37.0) g/dL RDW (11.5-15.5) % Plt Count (150-450) k/uL Neutrophils % % Lymphocytes % % Monocytes % % Eosinophils % % Basophils % % Neutrophils # (1.3-7.7) k/uL Lymphocytes # (1.0-4.8) k/uL Monocytes # (0-1.0) k/uL Eosinophils # (0-0.7) k/uL Basophils # (0-0.2) k/uL PT (9.0-12.0) sec INR (<1.2) APTT (22.0-30.0) sec D-Dimer (<0.60) mg/L FEU Sodium (137-145) mmol/L Potassium (3.5-5.1) mmol/L Chloride (98-107) mmol/L Carbon Dioxide (22-30) mmol/L Anion Gap mmol/L BUN (7-17) mg/dL Creatinine (0.52-1.04) mg/dL Est GFR (CKD-EPI)AfAm (>60 ml/min/1.73 sqM) Est GFR (CKD-EPI)NonAf (>60 ml/min/1.73 sqM) Glucose (74-99) mg/dL Calcium (8.4-10.2) mg/dL Magnesium (1.6-2.3) mg/dL Total Bilirubin (0.2-1.3) mg/dL AST (14-36) U/L ALT (9-52) U/L Alkaline Phosphatase (38-126) U/L Troponin I 0.020 (0.000-0.034) ng/mL Total Protein (6.3-8.2) g/dL Albumin (3.5-5.0) g/dL Lipase (23-300) U/L Disposition Clinical Impression: Chest pain Disposition: ADMITTED IP TO THIS HOSP Condition: Fair Referrals: Cornelio Garcia MD [Primary Care Provider] - 1-2 days Decision Time: 21:57
[2019-02-01 18:22] LABS: Albumin 4.6 g/dL (3.5-5.0); Magnesium 2.1 mg/dL (1.6-2.3); Potassium 4.5 mmol/L (3.5-5.1); Total Bilirubin 0.6 mg/dL (0.2-1.3); Total Protein 7.4 g/dL (6.3-8.2)
[2019-02-01 18:27] LABS: Basophils # (A) 0.1 k/uL (0-0.2); Basophils % (A) 1 %; Eosinophils # (A) 0.1 k/uL (0-0.7); Eosinophils % (A) 1 %; HCT 36.7 % (34.0-46.0); HGB 12.6 gm/dL (11.4-16.0); Lymphocytes # (A) 2.3 k/uL (1.0-4.8); Lymphocytes % (A) 22 %; MCH 30.6 pg (25.0-35.0); MCHC 34.4 g/dL (31.0-37.0); MCV 88.8 fL (80.0-100.0); Mean Platelet Volume 7.8; Monocytes # (A) 0.7 k/uL (0-1.0); Monocytes % (A) 7 %; Neutrophils % (A) 67 %; Platelet Count 290 k/uL (150-450); RBC 4.13 m/uL (3.80-5.40); RDW 15.3 % (11.5-15.5); WBC 10.4 k/uL (3.8-10.6)
--- NOTE | 2019-02-01 18:35 | XR ---
EXAMINATION TYPE: XR chest 2V DATE OF EXAM: 02/01/2019 COMPARISON: 01/10/2018 INDICATION: Chest pain short of breath TECHNIQUE: Frontal and lateral views of the chest are obtained. FINDINGS: The heart size is normal. The pulmonary vasculature is normal. Some minimal atelectasis may be within the lingula adjacent to the cardiac apex. Lung windows otherwi se are clear. IMPRESSION: 1. Suggestion of some atelectasis at the level of the cardiac apex within the lingula.
[2019-02-01 18:39] LABS: INR 0.9 (<1.2); Prothrombin Time 9.9 sec (9.0-12.0)
--- NOTE | 2019-02-01 18:46 | CT ---
EXAMINATION TYPE: CT brain cspine wo con DATE OF EXAM: 02/01/2019 COMPARISON: 07/18/2018 HISTORY: Fall 2 days ago. Complains of fatigue and weakness. CT DLP: 1420.3 mGycm, Automated exposure control for dose reduction was used. CONTRAST: None CT of the brain is performed utilizing 3 mm thick sections through the posterior fossa and 3 mm thick sections through the remaining calvarium. Study is performed within 24 hours of arrival to the hospital. No abnormal hyperdensity is present to suggest an acute intracranial hemorrhage. No mass lesion is evident. No acute infarcts are evident. Ventricles and sulci are appropriate for the patient age. Paranasal sinuses and mastoid air cells within the [id number] are clear. IMPRESSIONS: 1. Normal CT brain. CT cervical spine. COMPARISON: None CT of the cervical spine is performed in the axial plane at 2 mm thick sections. Reconstructed image s in the coronal, and sagittal plane are reviewed on the computer. No acute fractures are evident. Vertebral body alignment is normal. There is a prior anterior C5-6 fusion. There is mild disc space narrowing through the unfused cervical spine Vertebral body heights are preserved. No spinal canal stenosis is evident. Facet hypertrophy is present C2-C3 contributing to foraminal narrowing on the left. Facet hypertrophy is present at C3-4 also contributing to foraminal narrowing on the left. Milder foraminal narrowing but facet hypertrophy is present C4-5. IMPRESSIONS: 1. Facet hypertrophy C2-3 soon through C4-5 on the left contributing to mild foraminal narrowing. 2. No acute osseous abnormality.
[2019-02-01 18:53] LABS: D-Dimer 4.64 mg/L FEU (<0.60); Partial Thromboplastin Time 21.9 sec (22.0-30.0)
[2019-02-01] MEDS ORDERED: LORazepam 2 MG/ML INJ IV STA (19:45)
[2019-02-01] MEDS ORDERED: MORPHINE SULFATE 2 MG/ML SYRINGE IVP STA (19:45)
--- NOTE | 2019-02-01 19:52 | CT ---
EXAMINATION TYPE: CT chest wo con DATE OF EXAM: 02/01/2019 COMPARISON: 01/03/2018 HISTORY: Elevated d-dimer. Fall today. Unable to inject due to elevated labs. CT DLP: 301 mGycm, Automated exposure control for dose reduction was used. CONTRAST: Performed injected with 0 mL of Isovue 300. TECHNIQUE: Axial images were obtained at 5 mm thick sections. Reconstructed images are reviewed on [facility] computer in the coronal plane. FINDINGS: Portion of the thyroid visualized is normal. No suspicious lung nodules or focal infiltrates are present. No enlarged mediastinal or hilar adenopathy is evident. The ascending aorta diameter at the level o f the main pulmonary artery is 3.2 cm. The main pulmonary artery diameter at the bifurcation is 2.4 cm. Significant coronary artery calcification is present. There is a moderate size hiatal hernia. Limited CT sections are obtained through the upper abdomen. Nonobstructing renal stones are present. No pneumothorax is evident. Mediastinum appears unremarkable. No displaced rib fractures are evident. Vertebral body heights are preserved. Vacuum disc phenomenon is within scattered midthoracic levels. IMPRESSIONS: 1. Normal Chest CT.
--- NOTE | 2019-02-01 21:25 | NM ---
EXAMINATION TYPE: NM pul vent and perfuse DATE OF EXAM: 02/01/2019 COMPARISON: NONE HISTORY: History provided is rule out PE TECHNIQUE: Utilizing inhalation of 67.5 mCi Tc 99m DTPA aerosol and intravenous injection of 5.1 mCi of Tc 99m MAA, ventilation and perfusion images are acquired post injection in multiple projections. FINDINGS: Normal radiotracer distribution is noted in the lungs. There is no evidence of mismatched defects. IMPRESSION: Low probability for pulmonary embolism.
[2019-02-01] MEDS ORDERED: NITROGLYCERIN SL TABS 0.4 MG TAB SUBLINGUAL PRN ×2 (21:57→22:44)
[2019-02-01 23:37] LABS: Glucose,Whole Blood 107 mg/dL (75-99)
[2019-02-02] MEDS: CYCLOBENZAPRINE 10 MG TAB PO PRN ×2 (00:07→09:00)
[2019-02-02 00:11] LABS: Appearance,Urine Clear (Clear); Bilirubin,Urine Negative (Negative); Blood,Urine Negative (Negative); Color,Urine Yellow; Glucose,Urine (UA) Negative (Negative); Hyaline Casts,Urine 70 /lpf (0-2); Ketones,Urine Negative (Negative); Leukocyte Esterase,Urine Trace (Negative); Mucus,Urine Rare /hpf; Nitrite,Urine Negative (Negative); Protein,Urine Negative (Negative); RBC,Urine <1 /hpf (0-5); Specific Gravity,Urine 1.014 (1.001-1.035); Squamous Epithelial Cell,Urine 3 /hpf (0-4); Urobilinogen,Urine <2.0 mg/dL (<2.0)
[2019-02-02] MEDS: ASPIRIN 81 MG PO SCH ×2 (00:13→09:01)
[2019-02-02 05:48] LABS: Basophils % (A) 0 %; Eosinophils # (A) 0.1 k/uL (0-0.7); Eosinophils % (A) 2 %; HCT 32.8 % (34.0-46.0); HGB 10.7 gm/dL (11.4-16.0); Lymphocytes # (A) 1.8 k/uL (1.0-4.8); Lymphocytes % (A) 26 %; MCH 30.2 pg (25.0-35.0); MCHC 32.5 g/dL (31.0-37.0); MCV 92.9 fL (80.0-100.0); Mean Platelet Volume 7.1; Monocytes # (A) 0.5 k/uL (0-1.0); Monocytes % (A) 7 %; Neutrophils # (A) 4.5 k/uL (1.3-7.7); Neutrophils % (A) 63 %; Platelet Count 212 k/uL (150-450); RBC 3.53 m/uL (3.80-5.40); RDW 14.2 % (11.5-15.5); WBC 7.1 k/uL (3.8-10.6)
[2019-02-02 05:57] LABS: Calcium 8.7 mg/dL (8.4-10.2); Potassium 3.8 mmol/L (3.5-5.1)
[2019-02-02 06:12] LABS: Glucose,Whole Blood 132 mg/dL (75-99)
[2019-02-02] MEDS: INSULIN ASPART (NovoLOG) 100 UNIT/ML VIAL SQ SCH ×2 (06:15→11:52)
[2019-02-02] MEDS ORDERED: LORATADINE 10 MG TAB PO PRN (09:00)
[2019-02-02] MEDS ORDERED: POLYETHYLENE GLYCOL 3350 17 GM POWD.PACK PO SCH (09:00)
[2019-02-02] MEDS ORDERED: valACYclovir 500 MG TAB PO SCH (09:00)
[2019-02-02] MEDS ORDERED: CEVIMELINE 30 MG CAP PO SCH (09:00)
[2019-02-02] MEDS ORDERED: PANTOPRAZOLE 40 MG TABLET PO SCH (09:00)
[2019-02-02] MEDS ORDERED: ASPIRIN 325 MG TAB PO SCH (09:00)
[2019-02-02] MEDS ORDERED: DULoxetine HCL 30 MG CAPSULE.DR PO SCH (09:00)
[2019-02-02] MEDS ORDERED: GABAPENTIN 300 MG CAP PO SCH (09:00)
[2019-02-02] MEDS ORDERED: FUROSEMIDE 20 MG TAB PO SCH (09:00)
[2019-02-02] MEDS ORDERED: busPIRone HCl 5 MG TAB PO SCH (09:00)
[2019-02-02] MEDS ORDERED: CLOPIDOGREL 75 MG TAB PO SCH (09:00)
[2019-02-02] MEDS ORDERED: SENNOSIDES-DOCUSATE SODIUM 1 EACH TAB PO SCH (09:00)
[2019-02-02] MEDS ORDERED: METOPROLOL SUCCINATE (ER) 25 MG TAB.ER.24H PO SCH (09:00)
[2019-02-02 11:56] LABS: Glucose,Whole Blood 139 mg/dL (75-99)
--- NOTE | 2019-02-02 12:51 | P.HPIM ---
History of Present Illness H&P Date: 02/02/19 Chief Complaint: Chest pain This is admission history and physical on observation status. Dictation by Dr. Radha Ewing [facility] Patient presented with the chief complaint of chest pain arrived in wheelchair after she fell down. History of present illness 78 years old white female she presented to the ER because of the chest pain after she tripped and fell down facedown with strike her head and neck with the bruise on the left side of the forehead. There is no loss of consciousness. This event happened on 02/01/2019 as she went to bed in the night she felt the pain is worsening and the pain radiated to the left scapula and left upper extremities. She had a history of coronary artery disease and stenting and which is done last year and she felt is better to go to the emergency room. Review of system: She had neck pain and they did computed tomography scan of the brain and the neck and she has degenerative arthritis of the cervical neck. No evidence of bleeding in the brain or fracture of the cervical neck. She had also computed tomography scan of the chest with no evidence of PE as well as VQ scan which was low probability. But still have the traumatic chest pain and the same time she had low blood pressure. Due to the EKG found that her ventricular rate 92/m regular sinus and no NH prolongation and no QT C prolongation she had however T-wave inversion. Medication list: Patient on atorvastatin 80 mg daily at bedtime #2 cevimeline 30 mg twice a day for saliva under a mouse with a history of rheumatoid arthritis or the saliva and dry mouth due to rheumatoid arthritis. #3 gabapentin Neurontin 600 mg 3 times a day. #4 duloxetine Cymbalta 30 mg by mouth 3 times a day. #5 omeprazole 20 mg before meals breakfast daily. #6 Central xeljanz 5 mg twice a day #7. Valtrex 500 mg daily. #8 aspirin enteric-coated 81 mg daily. #9 Flexeril 10 mg 3 times a day when necessary. #10 Lasix 20 mg daily. #11 insulin aspart slacks touch before meals meal 3 times a day to scale. #12 insulin with Lantus Solo*10 units at at bedtime. #13 metoprolol succinate 25 mg daily. #14 Senokot-S 1 tablet twice a day when necessary for constipation. #15 5 mg twice a day #16 Requip 0.25 mg at at bedtime #17 Claritin 10 mg daily. #18 Plavix 75 mg daily. #19 nitroglycerin sublingual Nitrostat 0.4 mg every 5 minutes when necessary for chest pain. #20 polyethylene glycol 3350 MiraLAX 17 g daily when necessary Past medical history: #1 coronary artery disease, history of chest pain and angina in the past, diabetes mellitus type 2 insulin dependent. History of fibromyalgia, rheumatoid arthritis, hyperlipidemia, hypertension, myocardial infarction, osteoarthritis. She has also I disorder followed by the process specialist. No murmurs of the heart. Neuropathy of the right hand and feet. History of right DVT in the past, chronic pain syndrome treated by Dr. Telles, history of hiatal hernia, diverticulosis, constipation, Kina, skin cancer with removal,. Surgical history she has appendectomy, cholecystectomy, heart catheterization, stent placement, hernia repair, hysterectomy, tonsillectomy, with multiple stent, ventral hernia repair, colonoscopy, bilateral cataract removal,. History of depression not present at this time. On the examination: Clinical exam patient at the time presentation in the ER her vital sign indicating temperature 97.6 heart rate 103 respiratory rate 20 and blood pressure 72/47 with the pulse ox 98 and that's hypotension. On the physical examination patient is conscious alert oriented 3. Head was normocephalic and she had bruises on the left side of the scientologist negative computed tomography scan. Of the brain. Neck she is tender with the underlying cervical arthritis facet arthropathy of the cervical spine no fracture. Pupil equal reactive conjunctivae was pink sclera was nonicteric. Oropharynx was negative with dentures. Ears negative with normal hearing and nose no discharge. Neck was supple no JVD no thyromegaly no lymphadenopathy and trachea midline. Chest is clear to auscultation and percussion and no wheezes no rhonchi's. And respiratory sound is normal Heart is regular sinus rhythm was soft murmur on the left sternal border grade 1-2/6. Abdomen soft positive bowel sounds obese and no tenderness in the 4 quadrant. And Extremities there is left leg sign of bruising and due to the fall. On palpation of the chest wall she has underlying tenderness with a history of costochondritis and fibromyalgia. Endocrine she had history of diabetes mellitus and neuropathy. Psychiatry: Depression. And antianxiety. Neurologically: No lateralizing sign and no evidence of cranial nerve deficit. And she is ambulatory. Assessment: #1 chest pain #2 fall as she tripped. #3 history of coronary artery disease atherosclerotic heart disease with several stenting she stated up to 5 at this time #4 hypotension etiology unclear #5 laboratory was normal with the WBC 10.4 and hemoglobin 12.6, and platelet count 290. Her PT and INR is normal but the d-dimer was elevated 4.64 etiology unknown His electrolytes sodium 136 potassium 4.5 carbon dioxide 21 BUN 31 and creatinine 1.64, her estimated glomerular filtration rate of 30 with the underlying chronic kidney disease stage III B. His blood sugar 132 on the admission magnesium 2.1 and alkaline phosphatase was 122 AST 26 and a LT 17 and total protein 7.4 albumin 4.6 serum lipase is 84. VQ scan low probability of pulmonary embolism. CT of the chest is normal Her vital sign today on the 02/02/2019: Temperature 98.2 F oral pulse rate 95/m respiratory rate 17 and the blood pressure fluctuating between 107/65 and 99/55 her pulse ox also fluctuating between 98 on room air and 94. Recommendation plan: Patient seen by Dr. Arriola is her manager shift however we don't have input if further testing will be done as echo, or other testing including stress test and adjusting of her medication. We will wait for his opinion. Continue monitoring the blood pressure and the monitoring the blood sugar. And will adjust some of the medication if the patient also agreeable to see if the blood pressure . Today laboratory on 714 indicating that WBC 7.1, hemoglobin 10.7 and the hematocrit 32.8 platelet count 212. Her sodium 138 potassium 3.8 chloride 105 carbon dioxide 25, creatinine is 1.14 with the BUN 29 and estimated glomerular filtration rate for non- 47 indicating chronic kidney disease stage IIIA. Blood sugar was 135 and the POC glucose was 139 is very good control her lipid profile indicating LDL 49 with the total of cholesterol 114 with HDL 34 and triglyceride 156. Troponin is 0.013 and the prior one 0.020., Her urine analysis was negative We will waiting for Dr. Arriola to evaluate and and have a decision of the patient to go home today or waiting for for further testing. Patient on observation status as my knowledge from the ER Past Medical History Past Medical History: Coronary Artery Disease (CAD), Chest Pain / Angina, CVA/TIA, Diabetes Mellitus, Deep Vein Thrombosis (DVT), Eye Disorder, Fibromyalgia, Hyperlipidemia, Hypertension, Myocardial Infarction ([place]), Osteoarthritis (OA), Rheumatoid Arthritis (RA) Additional Past Medical History / Comment(s): "Leaky" heart valve, NIDDM type II, neuropathy R hand and feet, DVT R calf, chronic pain, chronic back pain, DDD, anemia, hiatal hernia, hemorrhoids, IBS, diverticulosis, constipation, sinus problems, falls, skin cancer with removal, shingelle "break outs"- last time a few months ago. Last Myocardial Infarction Date:: 2017 History of Any Multi-Drug Resistant Organisms: None Reported Past Surgical History: Appendectomy, Cholecystectomy, Heart Catheterization, Heart Catheterization With Stent, Hernia Repair, Hysterectomy, Tonsillectomy Additional Past Surgical History / Comment(s): PCI with multiple stents(6-7), ventral hernia repair, colonoscopy, bilateral cataract removals, skin cancer removals. Past Anesthesia/Blood Transfusion Reactions: No Reported Reaction Date of Last Stent Placement:: 2017 Smoking Status: Former smoker - Past Family History Father Additional Family Medical History / Comment(s): pt stated had heart issues, but not sure what Mother Additional Family Medical History / Comment(s): leaking valve Medications and Allergies Home Medications Medication Instructions Recorded Confirmed Type Atorvastatin [Lipitor] 80 mg PO HS 04/29/14 02/01/19 History Cevimeline [Evoxac] 30 mg PO BID 04/29/14 02/01/19 History Gabapentin [Neurontin] 600 mg PO TID 04/29/14 02/01/19 History DULoxetine HCL [Cymbalta] 30 mg PO TID 12/01/17 02/01/19 History Omeprazole [PriLOSEC] 20 mg PO DAILY 12/01/17 02/01/19 History Tofacitinib Citrate [Xeljanz] 5 mg PO BID 12/01/17 02/01/19 History valACYclovir [Valtrex] 500 mg PO DAILY 12/01/17 02/01/19 History Clopidogrel [Plavix] 75 mg PO DAILY tab 01/11/18 02/01/19 Rx Nitroglycerin Sl Tabs [Nitrostat] 0.4 mg SUBLINGUAL Q5M PRN tab 01/11/18 02/01/19 Rx Polyethylene Glycol 3350 [Miralax] 17 gm PO DAILY powd.pack 01/11/18 02/01/19 Rx Aspirin EC [Ecotrin Low Dose] 81 mg PO DAILY 07/18/18 02/01/19 History Cyclobenzaprine [Flexeril] 10 mg PO TID PRN 07/18/18 02/01/19 History Furosemide [Lasix] 20 mg PO DAILY 07/18/18 02/01/19 History Insulin Aspart (Niacinamide) See Protocol SQ AC-TID 07/18/18 02/01/19 History [Fiasp 100 Unit/ml Flextouch] Insulin Glargine,Hum.rec.anlog 10 unit SQ HS 07/18/18 02/01/19 History [Lantus Solostar] Metoprolol Succinate (ER) [Toprol 25 mg PO DAILY 07/18/18 02/01/19 History XL] Sennosides-Docusate Sodium 1 tab PO BID 07/18/18 02/01/19 History [Senokot-S] busPIRone HCl [Buspar] 5 mg PO BID 07/18/18 02/01/19 History rOPINIRole HCL [Requip] 0.25 mg PO HS 07/18/18 02/01/19 History Loratadine [Claritin] 10 mg PO DAILY PRN 02/01/19 02/01/19 History Allergies Allergy/AdvReac Type Severity Reaction Status Date / Time etanercept [From Enbrel] Allergy Rash/Hives Verified 02/01/19 19:10 latex Allergy Itching Verified 02/01/19 19:10 Sulfa (Sulfonamide Allergy Rash/Hives Verified 02/01/19 19:10 Antibiotics) tape Allergy Rash/Hives Uncoded 07/18/18 09:06 Physical Exam Vitals: Vital Signs Temp Pulse Pulse Resp BP BP Pulse Ox 02/02/19 08:00 98 F 93 17 99/55 94 L 02/02/19 04:00 98.2 F 95 17 107/65 98 02/02/19 03:43 92 17 02/02/19 00:00 92 17 02/01/19 23:57 98 F 92 17 121/62 100 02/01/19 23:44 100 02/01/19 22:41 98.0 F 87 18 111/55 99 02/01/19 21:50 86 18 125/57 99 02/01/19 18:38 86 18 107/53 99 02/01/19 18:05 109/57 99 02/01/19 17:04 97.6 F 103 H 20 72/47 98 Intake and Output 02/01/19 02/02/19 02/02/19 22:59 06:59 14:59 Intake Total 400 Output Total 400 Balance 0 Intake: Oral 400 Output: Urine 400 Other: Voiding Method Toilet Weight 77.111 kg 77.3 kg Results CBC & Chem 7: 02/02/19 05:33 02/02/19 05:33 Labs: Abnormal Lab Results - Last 24 Hours (Table) 02/01/19 02/01/19 02/01/19 Range/Units 17:45 17:45 23:35 RBC (3.80-5.40) m/uL Hgb (11.4-16.0) gm/dL Hct (34.0-46.0) % APTT 21.9 L (22.0-30.0) sec D-Dimer 4.64 H (<0.60) mg/L FEU Sodium 136 L (137-145) mmol/L Carbon Dioxide 21 L (22-30) mmol/L BUN 31 H (7-17) mg/dL Creatinine 1.64 H (0.52-1.04) mg/dL Glucose 132 H (74-99) mg/dL POC Glucose (mg/dL) 107 H (75-99) mg/dL Triglycerides (<150) mg/dL HDL Cholesterol (40-60) mg/dL Ur Leukocyte Esterase (Negative) Hyaline Casts (0-2) /lpf Urine Mucus (None) /hpf 02/01/19 02/02/19 02/02/19 Range/Units 23:40 05:33 05:33 RBC 3.53 L (3.80-5.40) m/uL Hgb 10.7 L (11.4-16.0) gm/dL Hct 32.8 L (34.0-46.0) % APTT (22.0-30.0) sec D-Dimer (<0.60) mg/L FEU Sodium (137-145) mmol/L Carbon Dioxide (22-30) mmol/L BUN 29 H (7-17) mg/dL Creatinine 1.14 H (0.52-1.04) mg/dL Glucose 135 H (74-99) mg/dL POC Glucose (mg/dL) (75-99) mg/dL Triglycerides 156 H (<150) mg/dL HDL Cholesterol 34 L (40-60) mg/dL Ur Leukocyte Esterase Trace H (Negative) Hyaline Casts 70 H (0-2) /lpf Urine Mucus Rare H (None) /hpf 02/02/19 02/02/19 Range/Units 06:09 11:36 RBC (3.80-5.40) m/uL Hgb (11.4-16.0) gm/dL Hct (34.0-46.0) % APTT (22.0-30.0) sec D-Dimer (<0.60) mg/L FEU Sodium (137-145) mmol/L Carbon Dioxide (22-30) mmol/L BUN (7-17) mg/dL Creatinine (0.52-1.04) mg/dL Glucose (74-99) mg/dL POC Glucose (mg/dL) 132 H 139 H (75-99) mg/dL Triglycerides (<150) mg/dL HDL Cholesterol (40-60) mg/dL Ur Leukocyte Esterase (Negative) Hyaline Casts (0-2) /lpf Urine Mucus (None) /hpf Thrombosis Risk Factor Assmnt - Choose All That Apply Each Risk Factor Represents 3 Points: Age 75 years or older Thrombosis Risk Factor Assessment Total Risk Factor Score: 3 Thrombosis Risk Factor Assessment Level: Moderate Risk
[2019-02-02 14:31] VITALS: RESP 18
--- NOTE | 2019-02-02 14:48 | P.CRDCN ---
History of Present Illness History of present illness: This is Sandra Payan PA-C dictating a consult on this patient The patient was interviewed and examined by me as well as by Dr. Ferraro Case discussed with Dr. Ferraro and he agrees with the plan of care IMPRESSION / ASSESSMENT: chest discomfort, EKG shows no ST-T changes, troponins negative 3, pain has resolved CAD status post stenting Diabetes Hypotension on admission, blood pressure has been stable PLAN: Patient states she had a low blood pressure at home, blood pressure has been low normal at the hospital, does not appear to need Lasix at this time discontinue Lasix to avoid hypotension Check orthostatic vitals Continue all other cardiac medications including dual antiplatelet therapy, statins, and metoprolol due to history of CAD and stenting, monitor for hypotension HPI Patient is a 78-year-old female with a past medical history of CAD status post stenting, diabetes, hypertension who presented to the emergency department with complaints of dizziness and chest tightness. States she has been dizzy and had trouble walking for the last 2 days and checked her blood pressure at home and it was in the low "80s" systolic. She also had some chest discomfort which she describes as a tightness in the left side of her chest. She this discomfort was different from how she felt prior to her stent placement. Denies shortness of breath or syncope. States she has been taking all her medications as prescribed. States she was well hydrated and had eaten that day. He did fall the day before because she tripped over her husbands [facility]. Denies passing out. Patient took nitroglycerin without relief from her symptoms per ER note. Upon admission her blood pressure was 72/87 and heart rate was 103 but repeat vitals showed improvement to 109/57 heart rate came down to 86. Patient underwent workup for PE which was negative. Patient seen and examined resting comfortably in bed. The blood pressure has remained low normal, stable. States she feels better today. Denies any symptoms of chest pain, shortness of breath, lightheadedness, dizziness. ROS: No fevers, chills or rigors, no cough, phlegm or expectoration, no nausea, vomiting or diarrhea, no hematuria, dysuria, no musculoskeletal complaints, no strokes or seizures, no skin lesions. EXAMINATION: Patient is afebrile, pulse 93, respirations 17, blood pressure 99/55, oxygen saturation 94 percent on room air Patient seen and examined resting comfortably in bed Heart is regular, no murmurs appreciated, lungs clear to auscultation bilaterally, no rhonchi, wheezing, or crackles appreciated No elevated JVD No lower extremity edema Mucous membranes dry REVIEW OF LABS, ECG & MEDICAL DATA EKG showed sinus rhythm with Q waves inferiorly which are present on previous EKGs, no ST changes noted WBC 7.1, hemoglobin 10.7, electrolytes within normal limits, BUN 29, creatinine 1.14 Total cholesterol 114, LDL 49, HDL 34 Troponins negative [address] showed no suspicious lung nodules, focal infiltrates, or pneumothorax Pulmonary perfusion imaging showed low probability for PE Past Medical History Past Medical History: Coronary Artery Disease (CAD), Chest Pain / Angina, CVA/TIA, Diabetes Mellitus, Deep Vein Thrombosis (DVT), Eye Disorder, Fibromyalgia, Hyperlipidemia, Hypertension, Myocardial Infarction ([place]), Osteoart hritis ([place]), Rheumatoid Arthritis ([place]) Additional Past Medical History / Comment(s): "Leaky" heart valve, NIDDM type II, neuropathy R hand and feet, DVT R calf, chronic pain, chronic back pain, DDD, anemia, hiatal hernia, hemorrhoids, IBS, diverticulosis, constipation, sinus problems, falls, skin cancer with removal, shingelle "break outs"- last time a few months ago. Last Myocardial Infarction Date:: 2017 History of Any Multi-Drug Resistant Organisms: None Reported Past Surgical History: Appendectomy, Cholecystectomy, Heart Catheterization, Heart Catheterization With Stent, Hernia Repair, Hysterectomy, Tonsillectomy Additional Past Surgical History / Comment(s): PCI with multiple stents(6-7), ventral hernia repair, colonoscopy, bilateral cataract removals, skin cancer removals. Past Anesthesia/Blood Transfusion Reactions: No Reported Reaction Date of Last Stent Placement:: 2017 Smoking Status: Former smoker - Past Family History Father Additional Family Medical History / Comment(s): pt stated had heart issues, but not sure what Mother Additional Family Medical History / Comment(s): leaking valve Medications and Allergies Home Medications Medication Instructions Recorded Confirmed Type Atorvastatin [Lipitor] 80 mg PO HS 04/29/14 02/01/19 History Cevimeline [Evoxac] 30 mg PO BID 04/29/14 02/01/19 History Gabapentin [Neurontin] 600 mg PO TID 04/29/14 02/01/19 History DULoxetine HCL [Cymbalta] 30 mg PO TID 12/01/17 02/01/19 History Omeprazole [PriLOSEC] 20 mg PO DAILY 12/01/17 02/01/19 History Tofacitinib Citrate [Xeljanz] 5 mg PO BID 12/01/17 02/01/19 History valACYclovir [Valtrex] 500 mg PO DAILY 12/01/17 02/01/19 History Clopidogrel [Plavix] 75 mg PO DAILY tab 01/11/18 02/01/19 Rx Nitroglycerin Sl Tabs [Nitrostat] 0.4 mg SUBLINGUAL Q5M PRN tab 01/11/18 02/01/19 Rx Polyethylene Glycol 3350 [Miralax] 17 gm PO DAILY powd.pack 01/11/18 02/01/19 Rx Aspirin EC [Ecotrin Low Dose] 81 mg PO DAILY 07/18/18 02/01/19 History Cyclobenzaprine [Flexeril] 10 mg PO TID PRN 07/18/18 02/01/19 History Furosemide [Lasix] 20 mg PO DAILY 07/18/18 02/01/19 History Insulin Aspart (Niacinamide) See Protocol SQ AC-TID 07/18/18 02/01/19 History [Fiasp 100 Unit/ml Flextouch] Insulin Glargine,Hum.rec.anlog 10 unit SQ HS 07/18/18 02/01/19 History [Lantus Solostar] Metoprolol Succinate (ER) [Toprol 25 mg PO DAILY 07/18/18 02/01/19 History XL] Sennosides-Docusate Sodium 1 tab PO BID 07/18/18 02/01/19 History [Senokot-S] busPIRone HCl [Buspar] 5 mg PO BID 07/18/18 02/01/19 History rOPINIRole HCL [Requip] 0.25 mg PO HS 07/18/18 02/01/19 History Loratadine [Claritin] 10 mg PO DAILY PRN 02/01/19 02/01/19 History Allergies Allergy/AdvReac Type Severity Reaction Status Date / Time etanercept [From Enbrel] Allergy Rash/Hives Verified 02/01/19 19:10 latex Allergy Itching Verified 02/01/19 19:10 Sulfa (Sulfonamide Allergy Rash/Hives Verified 02/01/19 19:10 Antibiotics) tape Allergy Rash/Hives Uncoded 07/18/18 09:06 Physical Exam Vitals: Vital Signs Temp Pulse Pulse Resp BP BP Pulse Ox 02/02/19 12:00 98 F 86 18 115/59 97 02/02/19 08:00 98 F 93 17 99/55 94 L 02/02/19 04:00 98.2 F 95 17 107/65 98 02/02/19 03:43 92 17 02/02/19 00:00 92 17 02/01/19 23:57 98 F 92 17 121/62 100 02/01/19 23:44 100 02/01/19 22:41 98.0 F 87 18 111/55 99 02/01/19 21:50 86 18 125/57 99 02/01/19 18:38 86 18 107/53 99 02/01/19 18:05 109/57 99 02/01/19 17:04 97.6 F 103 H 20 72/47 98 Intake and Output 02/01/19 02/02/19 02/02/19 22:59 06:59 14:59 Intake Total 400 Output Total 400 Balance 0 Intake: Oral 400 Output: Urine 400 Other: Voiding Method Toilet Weight 77.111 kg 77.3 kg Results 02/02/19 05:33 02/02/19 05:33 Cardiac Enzymes 02/01/19 02/01/19 02/01/19 Range/Units 17:45 17:45 23:56 AST 26 (14-36) U/L Troponin I 0.020 0.020 (0.000-0.034) ng/mL 02/02/19 Range/Units 05:33 AST (14-36) U/L Troponin I 0.013 (0.000-0.034) ng/mL Coagulation 02/01/19 Range/Units 17:45 PT 9.9 (9.0-12.0) sec APTT 21.9 L (22.0-30.0) sec Lipids 02/02/19 Range/Units 05:33 Triglycerides 156 H (<150) mg/dL Cholesterol 114 (<200) mg/dL HDL Cholesterol 34 L (40-60) mg/dL CBC 02/01/19 02/02/19 Range/Units 17:45 05:33 WBC 10.4 7.1 (3.8-10.6) k/uL RBC 4.13 3.53 L (3.80-5.40) m/uL Hgb 12.6 10.7 L (11.4-16.0) gm/dL Hct 36.7 32.8 L (34.0-46.0) % Plt Count 290 212 (150-450) k/uL Comprehensive Metabolic Panel 02/01/19 02/02/19 Range/Units 17:45 05:33 Sodium 136 L 138 (137-145) mmol/L Potassium 4.5 3.8 (3.5-5.1) mmol/L Chloride 99 105 (98-107) mmol/L Carbon Dioxide 21 L 25 (22-30) mmol/L BUN 31 H 29 H (7-17) mg/dL Creatinine 1.64 H 1.14 H (0.52-1.04) mg/dL Glucose 132 H 135 H (74-99) mg/dL Calcium 10.0 8.7 (8.4-10.2) mg/dL AST 26 (14-36) U/L ALT 17 (9-52) U/L Alkaline Phosphatase 122 (38-126) U/L Total Protein 7.4 (6.3-8.2) g/dL Albumin 4.6 (3.5-5.0) g/dL Current Medications Generic Name Dose Route Start Last Admin Trade Name Freq PRN Reason Stop Dose Admin Aspirin 81 mg 02/01/19 22:45 02/02/19 09:01 Aspirin PO 81 mg DAILY RUKHSANA Administration Atorvastatin Calcium 80 mg 02/02/19 21:00 Lipitor PO HS RUKHSANA Buspirone HCl 5 mg 02/02/19 09:00 02/02/19 09:00 Buspar PO 5 mg BID RUKHSANA Administration Cevimeline HCl 30 mg 02/02/19 09:00 02/02/19 09:01 Evoxac PO 30 mg BID RUKHSANA Administration Clopidogrel Bisulfate 75 mg 02/02/19 09:00 02/02/19 09:01 Plavix PO 75 mg DAILY RUKHSANA Administration Cyclobenzaprine HCl 10 mg 02/01/19 23:30 02/02/19 09:00 Flexeril PO 10 mg TID PRN Administration Muscle Spasm Duloxetine HCl 30 mg 02/02/19 09:00 02/02/19 09:00 Cymbalta PO 30 mg TID RUKHSANA Administration Gabapentin 600 mg 02/02/19 09:00 02/02/19 09:00 Neurontin PO 600 mg TID RUKHSANA Administration Insulin Aspart 2 - 12 unit 02/02/19 07:30 02/02/19 11:52 Novolog SQ Not Given ACHS [facility] Insulin Detemir 10 unit 02/02/19 21:00 Levemir SQ HS [facility] Loratadine 10 mg 02/02/19 09:00 Claritin PO DAILY PRN Allergy Symptoms Metoprolol Succinate 25 mg 02/02/19 09:00 02/02/19 09:00 Toprol Xl PO 25 mg DAILY [facility] Administration Nitroglycerin 0.4 mg 02/01/19 21:57 Nitrostat SUBLINGUAL Q5M PRN Chest Pain Nitroglycerin 0.4 mg 02/01/19 22:44 Nitrostat SUBLINGUAL Q5M PRN Chest Pain Pantoprazole Sodium 40 mg 02/02/19 09:00 02/02/19 09:00 Protonix PO 40 mg DAILY [facility] Administration Polyethylene Glycol 17 gm 02/02/19 09:00 02/02/19 09:04 Miralax PO Not Given DAILY [facility] Ropinirole HCl 0.25 mg 02/02/19 21:00 Requip PO HS [facility] Senna/Docusate Sodium 1 each 02/02/19 09:00 02/02/19 09:00 Senokot-S PO 1 each BID [facility] Administration Valacyclovir HCl 500 mg 02/02/19 09:00 02/02/19 09:00 Valtrex PO 500 mg DAILY [facility] Administration Intake and Output 02/01/19 02/02/19 02/02/19 22:59 06:59 14:59 Intake Total 400 Output Total 400 Balance 0 Intake: Oral 400 Output: Urine 400 Other: Voiding Method Toilet Weight 77.111 kg 77.3 kg 02/02/19 05:33 02/02/19 05:33
[2019-02-02 15:35] VITALS: BP 108/56; PULSE 85; TEMP 98.1
--- NOTE | 2019-02-02 16:32 | P.DS ---
Providers Date of admission: 02/01/19 21:58 Attending physician: Cornelio Garcia Consults: 02/01/19 21:57 Consult Physician Urgent Consulting Provider: William Valenzuela Consult Reason/Comments: chest pain Do you want consulting provider notified?: Yes Primary care physician: Cornelio Garcia This is dictation on discharge summary date of service 02/02/2019. Patient cleared by Dr. Ferraro the conveyor feeder offbearer for discharge. Final diagnosis: #1 chest pain associated with full at home. #2 hypotension associated with Lasix diuretic discontinued. #3 CT of the chest, VQ scan, chest x-ray, troponin, all the above is negative with no acute cardiac event. #4 history of rheumatoid arthritis, degenerative osteoarthritis, fibromyalgia. #5 hypotension which is fluctuating and Lasix has been discontinued. #6 history of coronary artery disease and atherosclerotic heart disease with previous 5 stent was placed. #7 lightheadedness and dizziness associated with hypotension which is improved on discharge. Dr. Ferraro cardiology consult. Emergency room presentation: 78 years old white female with the underlying history of coronary artery disease and stents. She had fall at home and developed chest pain, when she went to the bed at the night of 02/01/2019 she felt pain radiated to the left scapula and she was warm and sweaty. Her lost stent was placed on the last year and she thought that may be something going on with a history of MD in the past. Patient also with a history of rheumatoid arthritis was treated by Dr. Carranza the cosmetics presser. Hospital course In the emergency room underwent pulmonary perfusion imaging VQ scan which was no evidence of PE, she has also CT of the head and the cervical spine because of the fall and the pain in the neck and she found that she had cervical arthritis of the spine as well as computed tomography scan of the head which was normal. The chest x-ray showed some atelectatic at cardiac apex within the lingula however the computed tomography scan was negative Patient admitted on observation status and repeated the cardiac panel was troponin and cardiology consultation. Patient cleared from the cardiology point of the and they stopped the Lasix with the underlying hypotension improved. Exam on discharge: Her vital sign temperature 98.1 F oral her pulse rate is 85/m regular and respiratory rate is 18/m nonlabored her blood pressure 106/55 with a mean 72 and a repeat 108/56 with a repeat 73. Her pulse ox 97 on the room air. Her head is normocephalic she had bruises on the left methodist secondary to the fall with the computed tomography scan of the brain was negative. Pupil was equal reactive. Extraocular muscle movement intact, no nausea no vomiting. The neck was supple muscle pain of the neck with the underlying facet arthropathy no fractures. She had both an to eat and swallow, hearing not affected. Nose no discharge. Chest was clear to auscultation and percussion no wheezes no rhonchi's no shortness of breath Heart regular sinus rhythm no dysrhythmia. Abdomen soft positive bowel sound Extremities no edema. Positive pulses, ambulatory, Psychiatry: Anxiety and depression. Neurology: No lateralizing sign and no tremors cranial nerve is intact Patient assessment and plan: #1 patient stable general condition for discharge home #2 continue home medication except Lasix. #3 follow-up was Dr. Ferraro next week #4 follow-up with Dr. Garcia in 2-3 days with the whole medication in a bag to review in the office Patient was on observation status and discharge on observation status. Patient Condition at Discharge: Fair Plan - Discharge Summary Discharge Rx Participant: No New Discharge Prescriptions: Discontinued Furosemide [Lasix] 20 mg PO DAILY No Action Cevimeline [Evoxac] 30 mg PO BID Atorvastatin [Lipitor] 80 mg PO HS Gabapentin [Neurontin] 600 mg PO TID valACYclovir [Valtrex] 500 mg PO DAILY Omeprazole [PriLOSEC] 20 mg PO DAILY DULoxetine HCL [Cymbalta] 30 mg PO TID Tofacitinib Citrate [Xeljanz] 5 mg PO BID Clopidogrel [Plavix] 75 mg PO DAILY tab Nitroglycerin Sl Tabs [Nitrostat] 0.4 mg SUBLINGUAL Q5M PRN tab PRN Reason: Chest Pain Polyethylene Glycol 3350 [Miralax] 17 gm PO DAILY powd.pack Aspirin EC [Ecotrin Low Dose] 81 mg PO DAILY busPIRone HCl [Buspar] 5 mg PO BID Cyclobenzaprine [Flexeril] 10 mg PO TID PRN PRN Reason: Muscle Spasm Insulin Aspart (Niacinamide) [Fiasp 100 Unit/ml Flextouch] See Protocol SQ AC-TID Insulin Glargine,Hum.rec.anlog [Lantus Solostar] 10 unit SQ HS Metoprolol Succinate (ER) [Toprol XL] 25 mg PO DAILY rOPINIRole HCL [Requip] 0.25 mg PO HS Sennosides-Docusate Sodium [Senokot-S] 1 tab PO BID Loratadine [Claritin] 10 mg PO DAILY PRN PRN Reason: Allergy Symptoms Discharge Medication List Atorvastatin [Lipitor] 80 mg PO HS 04/29/14 [History] Cevimeline [Evoxac] 30 mg PO BID 04/29/14 [History] Gabapentin [Neurontin] 600 mg PO TID 04/29/14 [History] DULoxetine HCL [Cymbalta] 30 mg PO TID 12/01/17 [History] Omeprazole [PriLOSEC] 20 mg PO DAILY 12/01/17 [History] Tofacitinib Citrate [Xeljanz] 5 mg PO BID 12/01/17 [History] valACYclovir [Valtrex] 500 mg PO DAILY 12/01/17 [History] Clopidogrel [Plavix] 75 mg PO DAILY tab 01/11/18 [Rx] Nitroglycerin Sl Tabs [Nitrostat] 0.4 mg SUBLINGUAL Q5M PRN tab 01/11/18 [Rx] Polyethylene Glycol 3350 [Miralax] 17 gm PO DAILY powd.pack 01/11/18 [Rx] Aspirin EC [Ecotrin Low Dose] 81 mg PO DAILY 07/18/18 [History] Cyclobenzaprine [Flexeril] 10 mg PO TID PRN 07/18/18 [History] Insulin Aspart (Niacinamide) [Fiasp 100 Unit/ml Flextouch] See Protocol SQ AC- TID 07/18/18 [History] Insulin Glargine,Hum.rec.anlog [Lantus Solostar] 10 unit SQ HS 07/18/18 [History] Metoprolol Succinate (ER) [Toprol XL] 25 mg PO DAILY 07/18/18 [History] Sennosides-Docusate Sodium [Senokot-S] 1 tab PO BID 07/18/18 [History] busPIRone HCl [Buspar] 5 mg PO BID 07/18/18 [History] rOPINIRole HCL [Requip] 0.25 mg PO HS 07/18/18 [History] Loratadine [Claritin] 10 mg PO DAILY PRN 02/01/19 [History] Follow up Appointment(s)/Referral(s): Cornelio Garcia MD [Primary Care Provider] - 1-2 days
[2019-02-02] MEDS ORDERED: INSULIN DETEMIR (LEVEMIR) 100 UNIT/ML SYR SQ SCH (21:00)
[2019-02-02] MEDS ORDERED: ATORVASTATIN 80 MG TAB PO SCH (21:00)
== END 2019-02-02 17:29 | disposition home or self-care (01) ==
LOC: EC 17:00 → 3SCARD 21:58
PROVIDERS: ADMIT Internal Medicine; ATTEND Internal Medicine
DX: R07.89 Other chest pain (principal); S00.83XA Contusion of other part of head, initial encounter; S80.12XA Contusion of left lower leg, initial encounter; I95.2 Hypotension due to drugs; T50.1X5A Adverse effect of loop [high-ceiling] diuretics, initial encounter; I12.9 Hypertensive chronic kidney disease with stage 1 through stage 4 chronic kidney disease, or unspecified chronic kidney disease; N18.3 Chronic kidney disease, stage 3 (moderate); I25.10 Atherosclerotic heart disease of native coronary artery without angina pectoris; M79.7 Fibromyalgia; M06.9 Rheumatoid arthritis, unspecified; E78.5 Hyperlipidemia, unspecified; M46.92 Unspecified inflammatory spondylopathy, cervical region; R79.89 Other specified abnormal findings of blood chemistry; M19.90 Unspecified osteoarthritis, unspecified site; G89.4 Chronic pain syndrome; E11.42 Type 2 diabetes mellitus with diabetic polyneuropathy; K58.9 Irritable bowel syndrome, unspecified; K57.90 Diverticulosis of intestine, part unspecified, without perforation or abscess without bleeding; K44.9 Diaphragmatic hernia without obstruction or gangrene; F32.9 Major depressive disorder, single episode, unspecified; F41.9 Anxiety disorder, unspecified; K59.00 Constipation, unspecified; K64.9 Unspecified hemorrhoids; M54.9 Dorsalgia, unspecified; D64.9 Anemia, unspecified; Z79.82 Long term (current) use of aspirin; Z79.02 Long term (current) use of antithrombotics/antiplatelets; Z79.4 Long term (current) use of insulin; Z79.899 Other long term (current) drug therapy; Z91.040 Latex allergy status; Z88.2 Allergy status to sulfonamides; Z88.8 Allergy status to other drugs, medicaments and biological substances; Z91.048 Other nonmedicinal substance allergy status; Z86.73 Personal history of transient ischemic attack (TIA), and cerebral infarction without residual deficits; Z95.5 Presence of coronary angioplasty implant and graft; I25.2 Old myocardial infarction; Z86.718 Personal history of other venous thrombosis and embolism; Z85.828 Personal history of other malignant neoplasm of skin; Z90.49 Acquired absence of other specified parts of digestive tract; Z90.710 Acquired absence of both cervix and uterus; Z98.42 Cataract extraction status, left eye; Z98.41 Cataract extraction status, right eye; Z87.891 Personal history of nicotine dependence; Z82.49 Family history of ischemic heart disease and other diseases of the circulatory system; W01.0XXA Fall on same level from slipping, tripping and stumbling without subsequent striking against object, initial encounter; Y92.009 Unspecified place in unspecified non-institutional (private) residence as the place of occurrence of the external cause
CPT/HCPCS: 96361; 96374; 96375; 99285; 36415; 94760; 93005; 85379; 80061; 80053; 80048; 83690; 83735; 84484 ×2; 85025 ×2; 85610; 85730; 81001; 71046; 72125; 70450; 71250; 78582; G0378 ×2; A9540; A9567; J2060; J2270

== ENCOUNTER → 2019-03-04 | Outpatient (CLI) | payer MEDICARE | END | disposition home or self-care (01) | LOC: LABWHC1 11:28 | PROVIDERS: ATTEND Psychiatry & Neurology Pain Medicine | DX: I49.9 Cardiac arrhythmia, unspecified (principal) | CPT/HCPCS: 93005 ==

== ENCOUNTER 2019-03-25 16:56 | Inpatient (IN) | payer MEDICARE ==
[2019-03-25] MEDS ORDERED: SODIUM CHLORIDE 0.9% 1,000 ML IV STA ×2 (17:24)
[2019-03-25] MEDS ORDERED: SODIUM CHLORIDE 0.9% 500 ML 500 ML IV STA (17:24)
--- NOTE | 2019-03-25 17:24 | ED ---
Allergic Reaction HPI - General Chief complaint: Allergic Reaction Stated complaint: Med Reaction Time Seen by Provider: 03/25/19 17:00 Source: EMS, RN notes reviewed, old records reviewed Mode of arrival: EMS Limitations: no limitations - History of Present Illness Initial Comments: This is a 78-year-old female the ER for eversion multiple complaints, patient is initially presented for she feels like maybe symptoms are medication reaction, recently start Atarax or hydroxyzine for overall generalized itching prescribed by dermatology and developed a red rash itching rash over entire body. She also admits to having some chest pain evasive shortness of breath. Patient has a long calm. Medical history both medical and surgical history. No other known significant change in medications per patient. MD Complaint: allergic reaction, hives, other (Urticaria) -: days(s) Exposure: medication Symptoms: rash, itching Severity: moderate Previous Allergy History: none - Related Data Home Medications Medication Instructions Recorded Confirmed Atorvastatin [Lipitor] 80 mg PO HS 04/29/14 03/25/19 Cevimeline [Evoxac] 30 mg PO BID 04/29/14 03/25/19 Gabapentin [Neurontin] 600 mg PO TID 04/29/14 03/25/19 DULoxetine HCL [Cymbalta] 30 mg PO TID 12/01/17 03/25/19 Omeprazole [PriLOSEC] 40 mg PO DAILY 12/01/17 03/25/19 Tofacitinib Citrate [Xeljanz] 5 mg PO BID 12/01/17 03/25/19 valACYclovir [Valtrex] 500 mg PO DAILY 12/01/17 03/25/19 Aspirin EC [Ecotrin Low Dose] 81 mg PO DAILY 07/18/18 03/25/19 Cyclobenzaprine [Flexeril] 10 mg PO TID PRN 07/18/18 03/25/19 Insulin Aspart (Niacinamide) See Protocol SQ AC-TID 07/18/18 03/25/19 [Fiasp 100 Unit/ml Flextouch] Insulin Glargine,Hum.rec.anlog 10 unit SQ HS 07/18/18 03/25/19 [Lantus Solostar] Metoprolol Succinate (ER) [Toprol 25 mg PO DAILY 07/18/18 03/25/19 XL] busPIRone HCl [Buspar] 5 mg PO BID 07/18/18 03/25/19 rOPINIRole HCL [Requip] 0.25 mg PO HS 07/18/18 03/25/19 Loratadine [Claritin] 10 mg PO DAILY PRN 02/01/19 03/25/19 Hydrocodone/Acetaminophen [[place] 1 tab PO TID PRN 03/25/19 03/25/19 10-325] Memantine [Namenda] 10 mg PO DAILY 03/25/19 03/25/19 Terazosin [Hytrin] 1 mg PO HS 03/25/19 03/25/19 hydrOXYzine HCL 10 mg PO HS 03/25/19 03/25/19 Previous Rx's Medication Instructions Recorded Clopidogrel [Plavix] 75 mg PO DAILY tab 01/11/18 Nitroglycerin Sl Tabs [Nitrostat] 0.4 mg SUBLINGUAL Q5M PRN tab 01/11/18 Allergies Allergy/AdvReac Type Severity Reaction Status Date / Time etanercept [From Enbrel] Allergy Rash/Hives Verified 03/25/19 17:39 latex Allergy Itching Verified 03/25/19 17:39 Sulfa (Sulfonamide Allergy Rash/Hives Verified 03/25/19 17:39 Antibiotics) tape Allergy Rash/Hives Uncoded 07/18/18 09:06 Review of Systems ROS Statement: Those systems with pertinent positive or pertinent negative responses have been documented in the HPI. ROS Other: All systems not noted in ROS Statement are negative. Past Medical History Past Medical History: Coronary Artery Disease (CAD), Chest Pain / Angina, CVA/TIA, Diabetes Mellitus, Deep Vein Thrombosis (DVT), Eye Disorder, Fibromyalgia, Hyperlipidemia, Hypertension, Myocardial Infarction (PR), Ost eoarthritis (OA), Rheumatoid Arthritis (RA) Additional Past Medical History / Comment(s): "Leaky" heart valve, NIDDM type II, neuropathy R hand and feet, DVT R calf, chronic pain, chronic back pain, DDD, anemia, hiatal hernia, hemorrhoids, IBS, diverticulosis, constipation, sinus problems, falls, skin cancer with removal, shingelle "break outs"- last time a few months ago. Last Myocardial Infarction Date:: 2017 History of Any Multi-Drug Resistant Organisms: None Reported Past Surgical History: Appendectomy, Cholecystectomy, Heart Catheterization, Heart Catheterization With Stent, Hernia Repair, Hysterectomy, Tonsillectomy Additional Past Surgical History / Comment(s): PCI with multiple stents(6-7), ventral hernia repair, colonoscopy, bilateral cataract removals, skin cancer removals. Past Anesthesia/Blood Transfusion Reactions: No Reported Reaction Date of Last Stent Placement:: 2017 Past Psychological History: Depression Smoking Status: Former smoker - Past Family History Father Additional Family Medical History / Comment(s): pt stated had heart issues, but not sure what Mother Additional Family Medical History / Comment(s): leaking valve General Exam Limitations: no limitations General appearance: alert, in no apparent distress Head exam: Present: atraumatic, normocephalic, normal inspection Eye exam: Present: normal appearance, PERRL, EOMI. Absent: scleral icterus, conjunctival injection, periorbital swelling ENT exam: Present: normal exam, mucous membranes moist Neck exam: Present: normal inspection. Absent: tenderness, meningismus, lymphadenopathy Respiratory exam: Present: normal lung sounds bilaterally. Absent: respiratory distress, wheezes, rales, rhonchi, stridor Cardiovascular Exam: Present: normal rhythm, tachycardia, normal heart sounds. Absent: systolic murmur, diastolic murmur, rubs, gallop, clicks GI/Abdominal exam: Present: soft, normal bowel sounds. Absent: distended, tenderness, guarding, rebound, rigid Extremities exam: Present: normal inspection, full ROM, normal capillary refill. Absent: tenderness, pedal edema, joint swelling, calf tenderness Back exam: Present: normal inspection Neurological exam: Present: alert, oriented X3, CN II-XII intact Psychiatric exam: Present: normal affect, normal mood Skin exam: Present: warm, dry, intact, normal color, rash, urticaria (Diffuse) Course Vital Signs 03/25/19 03/25/19 03/25/19 16:59 18:00 18:53 Temperature 99.4 F 99.5 F 100.9 F H Pulse Rate 102 H 103 H Respiratory 18 18 Rate Blood Pressure 135/58 115/64 O2 Sat by Pulse 92 L 99 Oximetry 03/25/19 19:06 Temperature Pulse Rate 64 Respiratory 18 Rate Blood Pressure 118/64 O2 Sat by Pulse 97 Oximetry - Reevaluation(s) Reevaluation #1: 03/25/19 17:34 Medical records reviewed Reevaluation #2: 03/25/19 19:47 Symptoms are improved with fever control hydration and antihistamines here in the ER as well as steroids Medical Decision Making - Medical Decision Making 78 female the ER for evaluation. Patient has a for rash and itching, bleeding is medication reaction, patient also having fever and elevated heart rate. New- onset A. fib with RVR we'll admit for cardiology evaluation, patient also be admitted to rule out any kind of underlying infection or bacteremia regarding positive fever. Patient denying any chest pain currently - Lab Data Result diagrams: 03/25/19 17:37 03/25/19 17:37 Lab Results 03/25/19 03/25/19 03/25/19 Range/Units 17:37 17:37 17:37 WBC 6.2 (3.8-10.6) k/uL RBC 3.99 (3.80-5.40) m/uL Hgb 11.5 (11.4-16.0) gm/dL Hct 35.3 (34.0-46.0) % MCV 88.5 (80.0-100.0) fL MCH 28.8 (25.0-35.0) pg MCHC 32.5 (31.0-37.0) g/dL RDW 14.3 (11.5-15.5) % Plt Count 171 (150-450) k/uL Neutrophils % 76 % Lymphocytes % 12 % Monocytes % 5 % Eosinophils % 4 % Basophils % 1 % Neutrophils # 4.7 (1.3-7.7) k/uL Lymphocytes # 0.7 L (1.0-4.8) k/uL Monocytes # 0.3 (0-1.0) k/uL Eosinophils # 0.3 (0-0.7) k/uL Basophils # 0.1 (0-0.2) k/uL PT (9.0-12.0) sec INR (<1.2) APTT (22.0-30.0) sec Sodium 136 L (137-145) mmol/L Potassium 3.6 (3.5-5.1) mmol/L Chloride 104 (98-107) mmol/L Carbon Dioxide 21 L (22-30) mmol/L Anion Gap 11 mmol/L BUN 19 H (7-17) mg/dL Creatinine 0.82 (0.52-1.04) mg/dL Est GFR (CKD-EPI)AfAm 80 (>60 ml/min/1.73 sqM) Est GFR (CKD-EPI)NonAf 69 (>60 ml/min/1.73 sqM) Glucose 170 H (74-99) mg/dL Calcium 8.7 (8.4-10.2) mg/dL Phosphorus 2.5 (2.5-4.5) mg/dL Magnesium 1.9 (1.6-2.3) mg/dL Total Bilirubin 0.7 (0.2-1.3) mg/dL AST 18 (14-36) U/L ALT 30 (9-52) U/L Alkaline Phosphatase 85 (38-126) U/L Creatine Kinase 42 (30-135) U/L Troponin I (0.000-0.034) ng/mL NT-Pro-B Natriuret Pep 2840 pg/mL Total Protein 6.2 L (6.3-8.2) g/dL Albumin 3.5 (3.5-5.0) g/dL TSH 0.548 (0.465-4.680) mIU/L Urine Color Urine Appearance (Clear) Urine pH (5.0-8.0) Ur Specific [place] (1.001-1.035) Urine Protein (Negative) Urine Glucose (UA) (Negative) Urine Ketones (Negative) Urine Blood (Negative) Urine Nitrite (Negative) Urine Bilirubin (Negative) Urine Urobilinogen (<2.0) mg/dL Ur Leukocyte Esterase (Negative) 03/25/19 03/25/19 03/25/19 Range/Units 17:37 17:37 18:07 WBC (3.8-10.6) k/uL RBC (3.80-5.40) m/uL Hgb (11.4-16.0) gm/dL Hct (34.0-46.0) % MCV (80.0-100.0) fL MCH (25.0-35.0) pg MCHC (31.0-37.0) g/dL RDW (11.5-15.5) % Plt Count (150-450) k/uL Neutrophils % % Lymphocytes % % Monocytes % % Eosinophils % % Basophils % % Neutrophils # (1.3-7.7) k/uL Lymphocytes # (1.0-4.8) k/uL Monocytes # (0-1.0) k/uL Eosinophils # (0-0.7) k/uL Basophils # (0-0.2) k/uL PT 9.6 (9.0-12.0) sec INR 0.9 (<1.2) APTT 18.8 L (22.0-30.0) sec Sodium (137-145) mmol/L Potassium (3.5-5.1) mmol/L Chloride (98-107) mmol/L Carbon Dioxide (22-30) mmol/L Anion Gap mmol/L BUN (7-17) mg/dL Creatinine (0.52-1.04) mg/dL Est GFR (CKD-EPI)AfAm (>60 ml/min/1.73 sqM) Est GFR (CKD-EPI)NonAf (>60 ml/min/1.73 sqM) Glucose (74-99) mg/dL Calcium (8.4-10.2) mg/dL Phosphorus (2.5-4.5) mg/dL Magnesium (1.6-2.3) mg/dL Total Bilirubin (0.2-1.3) mg/dL AST (14-36) U/L ALT (9-52) U/L Alkaline Phosphatase (38-126) U/L Creatine Kinase (30-135) U/L Troponin I 0.023 (0.000-0.034) ng/mL NT-Pro-B Natriuret Pep pg/mL Total Protein (6.3-8.2) g/dL Albumin (3.5-5.0) g/dL TSH (0.465-4.680) mIU/L Urine Color Light Yellow Urine Appearance Clear (Clear) Urine pH 6.0 (5.0-8.0) Ur Specific [place] 1.003 (1.001-1.035) Urine Protein Negative (Negative) Urine Glucose (UA) Negative (Negative) Urine Ketones Negative (Negative) Urine Blood Negative (Negative) Urine Nitrite Negative (Negative) Urine Bilirubin Negative (Negative) Urine Urobilinogen <2.0 (<2.0) mg/dL Ur Leukocyte Esterase Negative (Negative) - EKG Data -: EKG Interpreted by Me (EKG shows A. fib with RVR rate 108, QRS 72, QTc 463) - Radiology Data Radiology results: report reviewed (Chest x-rays negative for acute disease), image reviewed Disposition Clinical Impression: Allergic reaction, Atrial fibrillation with RVR, Fever Disposition: ADMITTED IP TO THIS HOSP Condition: Fair Is patient prescribed a controlled substance at d/c from ED?: No Referrals: Cornelio Garcia MD [Primary Care Provider] - 1-2 days
[2019-03-25 17:49] LABS: Basophils # (A) 0.1 k/uL (0-0.2); Basophils % (A) 1 %; Eosinophils # (A) 0.3 k/uL (0-0.7); Eosinophils % (A) 4 %; HCT 35.3 % (34.0-46.0); HGB 11.5 gm/dL (11.4-16.0); Lymphocytes # (A) 0.7 k/uL (1.0-4.8); Lymphocytes % (A) 12 %; MCH 28.8 pg (25.0-35.0); MCHC 32.5 g/dL (31.0-37.0); MCV 88.5 fL (80.0-100.0); Mean Platelet Volume 7.1; Monocytes # (A) 0.3 k/uL (0-1.0); Monocytes % (A) 5 %; Neutrophils # (A) 4.7 k/uL (1.3-7.7); Neutrophils % (A) 76 %; Platelet Count 171 k/uL (150-450); RBC 3.99 m/uL (3.80-5.40); RDW 14.3 % (11.5-15.5); WBC 6.2 k/uL (3.8-10.6)
[2019-03-25 17:59] LABS: Albumin 3.5 g/dL (3.5-5.0); Calcium 8.7 mg/dL (8.4-10.2); Magnesium 1.9 mg/dL (1.6-2.3); Phosphorus 2.5 mg/dL (2.5-4.5); Potassium 3.6 mmol/L (3.5-5.1); Total Bilirubin 0.7 mg/dL (0.2-1.3); Total Protein 6.2 g/dL (6.3-8.2)
[2019-03-25 18:04] LABS: INR 0.9 (<1.2); Prothrombin Time 9.6 sec (9.0-12.0)
[2019-03-25 18:11] LABS: Partial Thromboplastin Time 18.8 sec (22.0-30.0)
[2019-03-25 18:14] LABS: Appearance,Urine Clear (Clear); Bilirubin,Urine Negative (Negative); Blood,Urine Negative (Negative); Color,Urine Light Yellow; Glucose,Urine (UA) Negative (Negative); Ketones,Urine Negative (Negative); Leukocyte Esterase,Urine Negative (Negative); Nitrite,Urine Negative (Negative); Protein,Urine Negative (Negative); Specific Gravity,Urine 1.003 (1.001-1.035); Urobilinogen,Urine <2.0 mg/dL (<2.0)
[2019-03-25] MEDS ORDERED: ACETAMINOPHEN TAB 500 MG TAB PO STA (19:01)
[2019-03-25] MEDS ORDERED: HEPARIN SODIUM,PORCINE 5,000 UNIT/ML 1 ML VIAL IV PRN (19:13)
[2019-03-25] MEDS ORDERED: HEPARIN SODIUM,PORCINE 5,000 UNIT/ML 1 ML VIAL IV ONE (19:13)
[2019-03-25] MEDS ORDERED: NITROGLYCERIN SL TABS 0.4 MG TAB SUBLINGUAL PRN ×2 (19:13→22:07)
[2019-03-25] MEDS ORDERED: ASPIRIN 81 MG PO STA (19:13)
[2019-03-25] MEDS ORDERED: HEPARIN SOD,PORK IN 0.45% NACL 25,000 UNIT in 0.45% NACL 1 250ML.BAG IV SCH (19:15)
--- NOTE | 2019-03-25 19:33 | XR ---
EXAMINATION: XR chest 2V DATE AND TIME: 03/25/2019 6:07 PM CLINICAL INDICATION: PHH; Weakness TECHNIQUE: Departmental protocol COMPARISON: 02/01/2019 FINDINGS: The lungs are clear. The pleural spaces are negative. The cardiac silhouette is not enlarged. The remainder of the mediastinal silhouette is unremarkable. The skeletal structures and soft tissues are negative for acute findings. IMPRESSION: NO ACUTE PROCESS.
[2019-03-25] MEDS ORDERED: DILTIAZEM DRIP BOLUS FROM BAG 1 MG SOLN IV ONE (19:47)
[2019-03-25] MEDS ORDERED: DILTIAZEM 125 MG in SODIUM CHLORIDE 0.9% 100 ML IV SCH (20:00)
[2019-03-25] MEDS: METOPROLOL TARTRATE 25 MG TAB PO SCH (20:17)
[2019-03-25] MEDS: SODIUM CHLORIDE 0.9% 1,000 ML IV SCH (20:57)
[2019-03-25 21:06] LABS: Glucose,Whole Blood 125 mg/dL (75-99)
[2019-03-25] MEDS ORDERED: DOXAZOSIN 1 MG TAB PO SCH (22:35)
[2019-03-25] MEDS ORDERED: hydrOXYzine HCL 10 MG TAB PO SCH (22:35)
[2019-03-25] MEDS: ATORVASTATIN 80 MG TAB PO SCH (22:44)
[2019-03-25] MEDS: busPIRone HCl 5 MG TAB PO SCH (22:45)
[2019-03-25] MEDS: DULoxetine HCL 30 MG CAPSULE.DR PO SCH (22:45)
[2019-03-25] MEDS: GABAPENTIN 300 MG CAP PO SCH (22:45)
[2019-03-25] MEDS: HYDROcodone/APAP 10-325MG 1 EACH TAB PO PRN (22:45)
[2019-03-25] MEDS: TOFACITINIB CITRATE 5 MG PO SCH (22:46)
[2019-03-25] MEDS: CYCLOBENZAPRINE 10 MG TAB PO PRN (22:47)
[2019-03-25 22:52] LABS: Glucose,Whole Blood 184 mg/dL (75-99)
[2019-03-25] MEDS: INSULIN DETEMIR (LEVEMIR) 100 UNIT/ML SYR SQ SCH (23:38)
[2019-03-25] MEDS: ZOLPIDEM 5 MG TAB PO PRN (23:39)
[2019-03-25] MEDS: CEVIMELINE 30 MG CAP PO SCH (23:49)
[2019-03-26] MEDS: SODIUM CHLORIDE 0.9% 1,000 ML IV SCH ×3 (03:25→20:55)
[2019-03-26 06:00] LABS: Mean Platelet Volume 7.1; Platelet Count 146 k/uL (150-450)
[2019-03-26 06:07] LABS: Glucose,Whole Blood 120 mg/dL (75-99)
[2019-03-26] MEDS ORDERED: INSULIN ASPART SQ SCH (07:30)
[2019-03-26 08:18] LABS: Cholesterol 97 mg/dL (<200); HDL Cholesterol 33 mg/dL (40-60); LDL Cholesterol,Calculated 2 mg/dL (0-99); Triglycerides 311 mg/dL (<150)
[2019-03-26] MEDS ORDERED: LORATADINE 10 MG TAB PO PRN (09:00)
[2019-03-26] MEDS ORDERED: predniSONE 10 MG TAB PO SCH (09:00)
[2019-03-26] MEDS ORDERED: ASPIRIN 325 MG TAB PO SCH (09:00)
[2019-03-26] MEDS: METOPROLOL TARTRATE 25 MG TAB PO SCH (09:11)
[2019-03-26] MEDS: ASPIRIN 81 MG PO SCH (09:11)
[2019-03-26] MEDS: GABAPENTIN 300 MG CAP PO SCH ×3 (09:11→20:47)
[2019-03-26] MEDS: HYDROcodone/APAP 10-325MG 1 EACH TAB PO PRN ×3 (09:12→23:04)
[2019-03-26] MEDS: PANTOPRAZOLE 40 MG TABLET PO SCH (09:12)
[2019-03-26] MEDS: busPIRone HCl 5 MG TAB PO SCH ×2 (09:12→20:47)
[2019-03-26] MEDS: DULoxetine HCL 30 MG CAPSULE.DR PO SCH ×3 (09:12→20:46)
[2019-03-26] MEDS: CLOPIDOGREL 75 MG TAB PO SCH (09:12)
[2019-03-26] MEDS: MEMANTINE 10 MG TAB PO SCH (09:12)
[2019-03-26] MEDS: valACYclovir 500 MG TAB PO SCH (09:22)
[2019-03-26] MEDS: methylPREDNISolone SOD SUCCI 40 MG/ML 1 ML VIAL IV SCH ×2 (09:45→20:48)
--- NOTE | 2019-03-26 11:40 | P.CRDCN ---
History of Present Illness Consult date: 03/26/19 Requesting physician: Cornelio Garcia Consult reason: atrial fibrillation Chief complaint: Weakness, rash History of present illness: This is a 78-year-old female who follows regularly with Dr. Reilly in the office. She has a known history of diabetes, hypertension, hyperlipidemia, coronary artery disease, history of iron deficiency anemia, prior history of LAD stenting and RCA stenting. She underwent a cardiac catheterization by Dr. maddie archer in December of last year which revealed a 90% stenosis of the proximal stented segment of the RCA, the stent in the LAD had mild diffuse disease of 30-40% stenosis which was unchanged from previous in the obtuse marginal branch had a long area of 60% stenosis. Subsequent to that patient underwent stenting of the RCA by Dr. Valenzuela. The patient had an echo performed during that admission which revealed an ejection fraction of 20-25%, severe mitral regurgitation. Patient presents to the hospital on this occasion with symptoms of lethargy. She states that she developed a rash after the procedure was done by her proposition player, she was started on Atarax and shortly thereafter developed a reaction, she became quite weak and lethargic. For this reason the patient came to the emergency room for further evaluation and treatment. Her EKG on presentation here showed atrial fibrillation with rapid ventricular response, according to the patient she had no prior documented history of atrial fibrillation. Chest x-ray did not reveal any acute process. Blood pressure 116/58, heart rate in the 70s, 96% on room air. She is afebrile. Her white blood cell count is normal, hemoglobin 11.5, platelet count 171 on admission, 146 this morning. Sodium 136, potassium 3.6, BUN 19 and creatinine 0.8. Magnesium 1.9, BNP level 2840. Troponin 0.023, 0.029, 0.028. TSH 0.548. At the time of my examination, patient feels well, she denies having any palpitations, but states that she had an episode of sharp chest pain prior to coming to the hospital, very different from the pain she has had in the past with her myocardial infarction. Past Medical History Past Medical History: Coronary Artery Disease (CAD), Chest Pain / Angina, CVA/TIA, Diabetes Mellitus, Deep Vein Thrombosis (DVT), Eye Disorder, Fib romyalgia, Hyperlipidemia, Hypertension, Myocardial Infarction ([place]), Osteoarthritis (OA), Rheumatoid Arthritis (RA) Additional Past Medical History / Comment(s): "Leaky" heart valve, NIDDM type II, neuropathy R hand and feet, DVT R calf, chronic pain, chronic back pain, DDD, anemia, hiatal hernia, hemorrhoids, IBS, diverticulosis, constipation, sinus problems, falls, skin cancer with removal, shingelle "break outs"- last time a few months ago. Last Myocardial Infarction Date:: 2017 History of Any Multi-Drug Resistant Organisms: None Reported Past Surgical History: Appendectomy, Cholecystectomy, Heart Catheterization, Heart Catheterization With Stent, Hernia Repair, Hysterectomy, Tonsillectomy Additional Past Surgical History / Comment(s): PCI with multiple stents(6-7), ventral hernia repair, colonoscopy, bilateral cataract removals, skin cancer removals. Past Anesthesia/Blood Transfusion Reactions: No Reported Reaction Date of Last Stent Placement:: 2017 Past Psychological History: Depression Additional Psychological History / Comment(s): . Smoking Status: Former smoker Past Alcohol Use History: None Reported Additional Past Alcohol Use History / Comment(s): Pt started smoking in 1960 and quit in 1980. Past Drug Use History: None Reported - Past Family History Father Additional Family Medical History / Comment(s): pt stated had heart issues, but not sure what Mother Additional Family Medical History / Comment(s): leaking valve Medications and Allergies Home Medications Medication Instructions Recorded Confirmed Type Atorvastatin [Lipitor] 80 mg PO HS 04/29/14 03/25/19 History Cevimeline [Evoxac] 30 mg PO BID 04/29/14 03/25/19 History Gabapentin [Neurontin] 600 mg PO TID 04/29/14 03/25/19 History DULoxetine HCL [Cymbalta] 30 mg PO TID 12/01/17 03/25/19 History Omeprazole [PriLOSEC] 40 mg PO DAILY 12/01/17 03/25/19 History Tofacitinib Citrate [Xeljanz] 5 mg PO BID 12/01/17 03/25/19 History valACYclovir [Valtrex] 500 mg PO DAILY 12/01/17 03/25/19 History Clopidogrel [Plavix] 75 mg PO DAILY tab 01/11/18 03/25/19 Rx Nitroglycerin Sl Tabs [Nitrostat] 0.4 mg SUBLINGUAL Q5M PRN tab 01/11/18 03/25/19 Rx Aspirin EC [Ecotrin Low Dose] 81 mg PO DAILY 07/18/18 03/25/19 History Cyclobenzaprine [Flexeril] 10 mg PO TID PRN 07/18/18 03/25/19 History Insulin Aspart (Niacinamide) See Protocol SQ AC-TID 07/18/18 03/25/19 History [Fiasp 100 Unit/ml Flextouch] Insulin Glargine,Hum.rec.anlog 10 unit SQ HS 07/18/18 03/25/19 History [Lantus Solostar] Metoprolol Succinate (ER) [Toprol 25 mg PO DAILY 07/18/18 03/25/19 History XL] busPIRone HCl [Buspar] 5 mg PO BID 07/18/18 03/25/19 History rOPINIRole HCL [Requip] 0.25 mg PO HS 07/18/18 03/25/19 History Loratadine [Claritin] 10 mg PO DAILY PRN 02/01/19 03/25/19 History Hydrocodone/Acetaminophen [[place] 1 tab PO TID PRN 03/25/19 03/25/19 History 10-325] Memantine [Namenda] 10 mg PO DAILY 03/25/19 03/25/19 History Terazosin [Hytrin] 1 mg PO HS 03/25/19 03/25/19 History hydrOXYzine HCL 10 mg PO HS 03/25/19 03/25/19 History predniSONE 0 mg PO DIRECTED 03/25/19 03/25/19 History Allergies Allergy/AdvReac Type Severity Reaction Status Date / Time etanercept [From Enbrel] Allergy Rash/Hives Verified 03/25/19 17:39 latex Allergy Itching Verified 03/25/19 17:39 Sulfa (Sulfonamide Allergy Rash/Hives Verified 03/25/19 17:39 Antibiotics) tape Allergy Rash/Hives Uncoded 07/18/18 09:06 Physical Exam Vitals: Vital Signs Temp Pulse Pulse Pulse Resp BP BP 03/26/19 08:17 98.6 F 79 79 18 115/55 03/26/19 08:00 18 03/26/19 04:00 82 18 111/62 03/26/19 03:24 18 03/25/19 23:34 98.2 F 80 18 106/86 03/25/19 23:31 80 18 03/25/19 22:21 99.7 F H 89 89 18 106/69 03/25/19 21:41 03/25/19 20:32 98.9 F 105 H 18 115/68 03/25/19 19:06 64 18 118/64 03/25/19 18:53 100.9 F H 03/25/19 18:00 99.5 F 103 H 18 115/64 03/25/19 16:59 99.4 F 102 H 18 135/58 Pulse Ox 03/26/19 08:17 96 03/26/19 08:00 03/26/19 04:00 95 03/26/19 03:24 03/25/19 23:34 94 L 03/25/19 23:31 03/25/19 22:21 98 03/25/19 21:41 98 03/25/19 20:32 98 03/25/19 19:06 97 03/25/19 18:53 03/25/19 18:00 99 03/25/19 16:59 92 L Intake and Output 03/25/19 03/26/19 03/26/19 22:59 06:59 14:59 Intake Total 120.189 Balance 120.189 Intake: Intake, IV Titration 120.189 Amount Heparin Sod,Pork in 0.45% 120.189 NaCl 25,000 unit In 0.45 % NaCl 1 250ml.bag @ 12 UNITS/KG/HR 9.798 mls/hr IV .Q24H [facility] Rx#: [id number] Other: Voiding Method Toilet Toilet Toilet # Voids 1 1 Weight 81.647 kg 80.1 kg PHYSICAL EXAMINATION: GENERAL: 78-year-old female in no acute distress at the time of my examination HEENT: Head is atraumatic, normocephalic. Pupils equal, round. Sclera anicteric. Conjunctiva are clear. Mucous membranes of the mouth are moist. Neck is supple. There is no elevated jugular venous pressure. No carotid bruit is heard. HEART EXAMINATION: Heart S1 and S2 irregularly irregular a systolic murmur is heard CHEST EXAMINATION: Lungs are clear to auscultation and precussion. No chest wall tenderness is noted on palpation or with deep breathing. Patient does have a rash on her back ABDOMEN: Soft, nontender. Bowel sounds are heard. No organomegaly noted. EXTREMITIES: 2+ peripheral pulses with no evidence of peripheral edema and no calf tenderness noted. NEUROLOGIC patient is awake, alert and oriented 3 . . Results 03/26/19 05:26 03/25/19 17:37 Cardiac Enzymes 03/25/19 03/25/19 03/25/19 Range/Units 17:37 17:37 23:59 AST 18 (14-36) U/L Troponin I 0.023 0.029 (0.000-0.034) ng/mL 03/26/19 Range/Units 05:26 AST (14-36) U/L Troponin I 0.028 (0.000-0.034) ng/mL Coagulation 03/25/19 03/26/19 Range/Units 17:37 05:26 PT 9.6 (9.0-12.0) sec APTT 18.8 L 44.5 H (22.0-30.0) sec Lipids 03/26/19 Range/Units 05:26 Triglycerides 311 H (<150) mg/dL Cholesterol 97 (<200) mg/dL HDL Cholesterol 33 L (40-60) mg/dL CBC 03/25/19 03/26/19 Range/Units 17:37 05:26 WBC 6.2 (3.8-10.6) k/uL RBC 3.99 (3.80-5.40) m/uL Hgb 11.5 (11.4-16.0) gm/dL Hct 35.3 (34.0-46.0) % Plt Count 171 146 L (150-450) k/uL Comprehensive Metabolic Panel 03/25/19 Range/Units 17:37 Sodium 136 L (137-145) mmol/L Potassium 3.6 (3.5-5.1) mmol/L Chloride 104 (98-107) mmol/L Carbon Dioxide 21 L (22-30) mmol/L BUN 19 H (7-17) mg/dL Creatinine 0.82 (0.52-1.04) mg/dL Glucose 170 H (74-99) mg/dL Calcium 8.7 (8.4-10.2) mg/dL AST 18 (14-36) U/L ALT 30 (9-52) U/L Alkaline Phosphatase 85 (38-126) U/L Total Protein 6.2 L (6.3-8.2) g/dL Albumin 3.5 (3.5-5.0) g/dL Current Medications Generic Name Dose Route Start Last Admin Trade Name Freq PRN Reason Stop Dose Admin Hydrocodone Bitart/Acetaminophen 1 each 03/25/19 22:35 03/26/19 09:12 [place] 10 PO 1 each TID PRN Administration Pain Aspirin 81 mg 03/26/19 09:00 03/26/19 09:11 Aspirin PO 81 mg DAILY RUKHSANA Administration Atorvastatin Calcium 80 mg 03/25/19 22:30 03/25/19 22:44 Lipitor PO 80 mg HS RUKHSANA Administration Buspirone HCl 5 mg 03/25/19 22:30 03/26/19 09:12 Buspar PO 5 mg BID RUKHSANA Administration Calamine/Pramoxine 1 applic 03/26/19 09:25 Caladryl TOPICAL TID PRN Skin Irritation Cevimeline HCl 30 mg 03/25/19 22:30 03/25/19 23:49 Evoxac PO 30 mg BID RUKHSANA Administration Clopidogrel Bisulfate 75 mg 03/26/19 09:00 03/26/19 09:12 Plavix PO 75 mg DAILY RUKHSANA Administration Cyclobenzaprine HCl 10 mg 03/25/19 22:30 03/25/19 22:47 Flexeril PO 10 mg TID PRN Administration Muscle Spasm Doxazosin Mesylate 1 mg 03/25/19 22:35 03/25/19 23:38 Cardura PO 1 mg HS RUKHSANA Administration Duloxetine HCl 30 mg 03/25/19 22:30 03/26/19 09:12 Cymbalta PO 30 mg TID RUKHSANA Administration Gabapentin 600 mg 03/25/19 22:30 03/26/19 09:11 Neurontin PO 600 mg TID RUKHSANA Administration Heparin Sodium (Porcine) 0 unit 03/25/19 19:13 Heparin IV Q6HR PRN Low PTT Protocol Sodium Chloride 1,000 mls @ 100 mls/hr 03/25/19 19:15 03/26/19 08:31 Saline 0.9% IV 100 mls/hr .Q10H RUKHSANA Administration Heparin Sodium/Sodium Chloride 250 mls @ 9.798 mls/hr 03/25/19 19:15 03/26/19 08:34 25,000 unit/ Sodium Chloride IV 14 units/kg/hr .Q24H RUKHSANA 11.431 mls/hr Titration Protocol 12 UNITS/KG/HR Diltiazem HCl 125 mg/ Sodium 125 mls @ 5 mls/hr 03/25/19 20:00 03/25/19 20:25 Chloride IV Not Given .Q24H RUKHSANA 5 MG/HR Insulin Aspart 0 unit 03/26/19 23:17 Novolog SQ ACHS RUKHSANA Protocol Insulin Detemir 10 unit 03/25/19 22:35 03/25/19 23:38 Levemir SQ 10 unit HS RUKHSANA Administration Loratadine 10 mg 03/26/19 09:00 Claritin PO DAILY PRN Allergy Symptoms Memantine 10 mg 03/26/19 09:00 03/26/19 09:12 Namenda PO 10 mg DAILY RUKHSANA Administration Methylprednisolone Sodium Succinate 40 mg 03/26/19 09:30 03/26/19 09:45 Solu-Medrol IV 40 mg Q12HR RUKHSANA Administration Metoprolol Tartrate 25 mg 03/25/19 21:00 03/26/19 09:11 Lopressor PO 25 mg BID RUKHSANA Administration Nitroglycerin 0.4 mg 03/25/19 22:07 Nitrostat SUBLINGUAL Q5M PRN Chest Pain Non-Formulary Medication 5 mg 03/25/19 22:15 03/25/19 22:46 Tofacitinib Citrate [Xeljanz] PO Not Given BID RUKHSANA Pantoprazole Sodium 40 mg 03/26/19 09:00 03/26/19 09:12 Protonix PO 40 mg DAILY RUKHSANA Administration Ropinirole HCl 0.25 mg 03/25/19 22:35 03/25/19 23:39 Requip PO 0.25 mg HS RUKHSANA Administration Valacyclovir HCl 500 mg 03/26/19 09:00 03/26/19 09:22 Valtrex PO 500 mg DAILY RUKHSANA Administration Zolpidem Tartrate 5 mg 03/25/19 23:14 03/25/19 23:39 Ambien PO 5 mg HS PRN Administration Insomnia Intake and Output 03/25/19 03/26/19 03/26/19 22:59 06:59 14:59 Intake Total 120.189 Balance 120.189 Intake: Intake, IV Titration 120.189 Amount Heparin Sod,Pork in 0.45% 120.189 NaCl 25,000 unit In 0.45 % NaCl 1 250ml.bag @ 12 UNITS/KG/HR 9.798 mls/hr IV .Q24H [facility] Rx#: [id number] Other: Voiding Method Toilet Toilet Toilet # Voids 1 1 Weight 81.647 kg 80.1 kg 03/26/19 05:26 03/25/19 17:37 EKG Interpretations (text) EKG shows atrial fibrillation with moderately rapid ventricular response Assessment and Plan Plan: Assessment and plan #1 symptoms of weakness and lethargy, likely secondary to medication reaction, patient was recently started on Atarax, temperature of 100.9 #2 recent rash following the procedure at dermatology office #3 coronary artery disease history with prior LAD and RCA stenting, most recent stent was performed in 2018 #4 ischemic cardiomyopathy, documented ejection fraction of 20-25% by echo performed a year ago, severe mitral regurgitation #5 hypertension #6 hyperlipidemia #7 diabetes #8 nicotine dependence #9 family history of premature coronary artery disease Plan We will obtain a repeat echocardiogram with Doppler study, continue baby aspirin, Lipitor 80, discontinue IV Cardizem, patient has a known documented ejection fraction of 20%, increase metoprolol to 50 mg by mouth twice a day, discontinue the IV heparin and start the patient on Eliquis 5 mg one tablet by mouth twice a day. Patient is also receiving 100 mL of IV fluid per hour we will discontinue this. We also recommend starting the patient on Entresto . Further recommendations to follow. DNP note has been reviewed, I agree with a documented findings and plan of care. Patient was seen and examined.
--- NOTE | 2019-03-26 11:58 | HP ---
HISTORY AND PHYSICAL The patient 78 years old, white female, . CHIEF COMPLAINT: Patient brought by EMS because of her underlying itching and hives and also anxiety with the underlying allergic reaction. HISTORY OF PRESENT ILLNESS: A 78-year-old white female presented to the ER at [facility] by EMS with the complaint that she had allergic reaction. Patient seen by the physician in the ER doctor, Dr. Coppola and who did not call me to tell me about the patient and subsequently I received a call on the floor that the patient admitted to the floor with the chest pain. As I did ask her, she presented to the emergency room from reaction and she thought that is from hydroxyzine and all what she received only 1-1/2 tablet. DETAILED HISTORY: On March 21, the patient had rash and itching. Went to Dr. Ramos's office where seen by nurse practitioner who did do cryo and treat her underlying itching and hives with Atarax and gave her a prescription for 10 mg of Atarax once a day. Patient at that time went back home. She took the Atarax 1 tablet 10 mg and she stated that she could not sleep all night. She was itching. She was miserable and; however, she waited for another day to see if improving. On Sunday, patient took half a tablet and she felt to that itching was worse and she felt also some pressure on the chest and felt that the chest discomfort or pressure from the medication or the allergy happened with whole-body blotches and urticaria. She was seen by Dr. Coppola and at that time they fund that she had heart rate in atrial fibrillation and with the rapid ventricular response and they admitted her to the groundwater monitoring technician floor as well as they changed her medication from Lopressor, metoprolol succinate to Lopressor tartrate twice a day. They did laboratory in the ER and the disposition was allergic reaction, and the atrial fibrillation, RVR was a fever. Unfortunately, Torrey Alvarez never contacted me to let me acknowledged that the patient in the hospital in the case of some urgency or other acute problem without my knowledge. I did question the patient today and the patient stated that she is feeling fine. She did not feel any palpitation, but she felt the chest pressure could be associated with her allergic reaction that happened with the hives. Her home medication: 1. Atorvastatin 80 mg at bedtime. 2. Evoxac 30 mg twice a day for dryness of the mouth. 3. Gabapentin, Neurontin 600 mg t.i.d. 4. Duloxetine, Cymbalta 30 mg t.i.d. 5. Omeprazole 40 mg daily a.c. breakfast. 6. Xeljanz for the rheumatoid arthritis and she was taking at 5 mg twice a day by Dr. Alfonso, the inspector receiving. 7. She is also on Valtrex 500 mg p.o. q. daily. 8. Aspirin enteric-coated low-dose 81 mg daily. 9. Flexeril 10 mg t.i.d. p.r.n. only for muscle spasm. 10.She is on insulin as part 100 unit touch a.c. meals t.i.d. 11.Also, she is on insulin Glargine which is" Lantus SoloSTAR" 10 unit at bedtime subcutaneous. 12.Metoprolol succinate 25 mg daily, which changed in the ER to metoprolol tartrate 25 mg twice a day. 13.She is on buspirone 5 mg twice a day. 14.Ropinirole, Requip 0.25 mg at bedtime for restless legs syndrome. 15.She is also on loratadine 10 mg daily. 16.She is on hydrocodone acetaminophen, [place] 10/325 mg t.i.d. p.r.n. by Dr. [facility]. 17.She is on Namenda 10 mg daily. 18.Terazosin 1 mg at bedtime. 19.Hydroxyzine was a recent event from the Dermatology given on March 21. Patient did go there for her rashes. 20.She is on Clopidogrel, Plavix 75 mg q. daily. 21.Sublingual nitroglycerin 0.4 mg IV every 5 minutes p.r.n. for acute chest pain. She has allergic to ENBREL causes hives. LATEX, itching, SULFA, rash and hives, TAPE, allergy. Review of systems mainly: NEUROPSYCHIATRY: She had anxiety, neurosis and depression but stable at the time of exam. CARDIOVASCULAR: She had history of multiple stents with coronary artery disease and she had a heart catheterization and history of chest pain that worried her and brought to the emergency room. GI: She had loose bowel at home for the last 3 days. However, today she said that she had no bowel movement. MUSCULOSKELETAL: She is ambulatory. ENDOCRINE: She has diabetes mellitus. MUSCULOSKELETAL: She has also underlying degenerative arthritis and rheumatoid arthritis and fibromyalgia. SKIN: Hives, not completely resolving associated with itching and causing her to be having severe irritation, inability to sleep, insomnia after taken the Atarax. PAST MEDICAL HISTORY: She had coronary artery disease, chest pain, angina. She has history of diabetes mellitus as well as history of DVT. She has high disorder and fibromyalgia, hyperlipidemia, hypertension, OR, osteoarthritis, rheumatoid arthritis. She had history of murmurs and neuropathy of the lower extremities, degenerative osteoarthritis, hiatal hernia and irritable bowel syndrome and history of hemorrhoid, diverticulosis, constipation, but recently was loose bowel. She had history of shingles in the past and skin cancer removed. SURGICAL HISTORY: Cholecystectomy, heart catheterization, stent placement, hernia repair, hysterectomy, tonsillectomy. She had multiple stents approximation is 5-6, ventral hernia repair, colonoscopy in the past, bilateral cataract removal and skin cancer as mentioned. History of depression and she is former smoker. She is . FAMILY HISTORY: Mother, leaky valve, and her father has heart issues. PHYSICAL EXAMINATION: Patient is conscious, alert, oriented x3, and sitting on the chair, no evidence of respiratory distress. Vital sign when presented to the emergency room: Temperature was 99.4 low-grade with a heart rate 102, 103 and her blood pressure 135/58 and; however, subsequently the temperature was increased with the groundwater monitoring technician found to have atrial fibrillation with RVR and subsequently patient admitted to the hospital for the RVR and allergic reaction. On examination, clinical, patient is conscious, alert, oriented x3. The head was normocephalic, atraumatic. Pupil was equal, reactive. Oropharynx was negative and she had upper plate and lower partial uvula midline. No facial asymmetry. Neck was supple. No JVD. No thyromegaly. No lymph node adenopathy. Trachea midline. The chest was clear to auscultation and percussion with the underlying fibromyalgia and tenderness over the chest. The skin rash has been improving, but not completely resolved, and still itching. CARDIOVASCULAR: The heart was normal size and rhythm; however, in the ER was mentioned that she had the AF. The abdomen is soft. Positive bowel sounds. No organ enlargement. EXTREMITIES: No edema and full range and she had also osteoarthritis. Neurologically, she is oriented x3. Cranial nerve 2 through 12 was intact. Psychiatry was normal mood. Skin was diffuse urticaria. The etiology that was thought to be Atarax; however, usually the Atarax helped with the allergy as patient initially went to the Dermatology because of rash. The laboratory indicating white count was 6.2 with a hemoglobin 11.5 and hematocrit 35.3, MCV 88.5, platelet count 171. Sodium 136, potassium 3.6, chloride 104, carbon dioxide 21, her BUN was 19 and creatinine 0.82 with an EGFR for non- 69. Her blood sugar was 170 and normal calcium 8.7, phosphorus 2.5, magnesium 1.9, total bili 0.7, AST 18, ALT of 30 and alk phos 85, and CK was 42. Her proBNP beta natriuretic peptide was 2,840 and the protein was 6.2, albumin 3.5, and TSH was stable 0.548. She had also PT and INR with the PT 9.6, INR 0.9, and PTT 18.8. She had troponin, one was negative 0.023, and she had a urine analysis was essentially negative and no glucose and no blood. An EKG was indicating that heart rate 108 with the atrial fib, RVR per the note of Dr. Coppola with the underlying allergic reaction as the final disposition from the ER, Dr. Coppola and the chest x-ray was no acute process. ASSESSMENT: 1. Patient had this history of urticaria and acute reaction, it is unclear is it from Atarax or other etiology and she only received 1-1/2 tablets. 2. Underlying history of tachyarrhythmia as seen in the ER with atrial fibrillation and rapid ventricular response; however, the rapid response was in 108, which is considered not extreme, and the patient at that time admitted to the hospital to the groundwater monitoring technician. However, I did not know until the nursing staff called me and told me that the patient on the floor and I did not have any knowledge of the patient. Subsequently, the patient received her medication and we adjusted the medicine when I did history and physical as well and stop the Atarax completely. Continue the consultation with the Cardiology and started Medrol 40 mg IV q.12 hours and monitoring the effect and also Caladryl 3 times a day spray. 3. She is diabetic and we have continued her insulin and also insulin to scale. BLANK / HERNESTON: [id number] /
[2019-03-26 12:04] LABS: Glucose,Whole Blood 277 mg/dL (75-99)
[2019-03-26] MEDS: TOFACITINIB CITRATE 5 MG PO SCH ×2 (12:20→20:40)
[2019-03-26] MEDS: APIXABAN 5 MG TAB PO SCH ×2 (12:30→20:47)
[2019-03-26] MEDS: INSULIN ASPART (NovoLOG) 100 UNIT/ML VIAL SQ SCH ×3 (13:06→20:51)
[2019-03-26] MEDS: CYCLOBENZAPRINE 10 MG TAB PO PRN (13:59)
[2019-03-26] MEDS: PRAMOX-CALAMINE 1-8% LOTION 1 APPLIC/5 ML LOTION TOPICAL PRN ×2 (15:39→23:34)
[2019-03-26] MEDS: CEVIMELINE 30 MG CAP PO SCH ×2 (15:40→20:48)
[2019-03-26 17:04] LABS: Glucose,Whole Blood 267 mg/dL (75-99)
[2019-03-26] MEDS ORDERED: INSULIN ASPART (NovoLOG) 100 UNIT/ML VIAL SQ ONE (17:11)
[2019-03-26 20:42] LABS: Glucose,Whole Blood 353 mg/dL (75-99)
[2019-03-26] MEDS: ATORVASTATIN 80 MG TAB PO SCH (20:47)
[2019-03-26] MEDS: METOPROLOL TARTRATE 50 MG TAB PO SCH (20:48)
[2019-03-26] MEDS: INSULIN DETEMIR (LEVEMIR) 100 UNIT/ML SYR SQ SCH (20:51)
[2019-03-26] MEDS ORDERED: INSULIN ASPART (NovoLOG) 100 UNIT/ML VIAL SQ SCH (23:17)
[2019-03-26] MEDS: ZOLPIDEM 5 MG TAB PO PRN (23:35)
[2019-03-27 06:07] LABS: Glucose,Whole Blood 257 mg/dL (75-99)
[2019-03-27 06:14] LABS: Basophils % (A) 0 %; Eosinophils % (A) 0 %; HCT 28.3 % (34.0-46.0); Lymphocytes # (A) 0.8 k/uL (1.0-4.8); Lymphocytes % (A) 18 %; MCH 29.4 pg (25.0-35.0); MCHC 32.5 g/dL (31.0-37.0); MCV 90.2 fL (80.0-100.0); Mean Platelet Volume 7.4; Monocytes # (A) 0.2 k/uL (0-1.0); Monocytes % (A) 4 %; Neutrophils # (A) 3.5 k/uL (1.3-7.7); Neutrophils % (A) 76 %; Platelet Count 151 k/uL (150-450); RBC 3.14 m/uL (3.80-5.40); RDW 14.4 % (11.5-15.5); WBC 4.6 k/uL (3.8-10.6)
[2019-03-27 06:17] LABS: HGB 9.2 gm/dL (11.4-16.0)
--- NOTE | 2019-03-27 06:21 | ECHOF ---
Referral Reason:afib MEASUREMENTS -------- HEIGHT: 160.0 cm WEIGHT: 79.8 kg BP: 115/55 RVIDd: 2.9 cm (< 3.3) IVSd: 1.0 cm (0.6 - 1.1) LVIDd: 4.9 cm (3.9 - 5.3) LVPWd: 1.1 cm (0.6 - 1.1) IVSs: 1.5 cm LVIDs: 3.7 cm LVPWs: 1.4 cm LA Diam: 3.7 cm (2.7 - 3.8) LAESV Index (A-L): 32.97 ml/m Ao Diam: 2.7 cm (2.0 - 3.7) AV Cusp: 2.0 cm (1.5 - 2.6) MV EXCURSION: 18.395 mm (> 18.000) MV EF SLOPE: 52 mm/s (70 - 150) EPSS: 0.5 cm MV E Nikolas: 1.25 m/s MV DecT: 185 ms MV A Nikolas: 1.08 m/s MV E/A Ratio: 1.15 AR PHT: 336 ms RAP: 5.00 mmHg RVSP: 26.31 mmHg FINDINGS -------- Sinus rhythm. This was a technically adequate study. The left ventricular size is normal. There is borderline concentric left ventricular hypertrophy. Overall left ventricular systolic function is mildly impaired with, an EF between 45 - 50 %. Basal inferior LV wall motion is hypokinetic. Mid inferior LV wall motion is hypokinetic. The right ventricle is normal in size. LA is midly dilated 29-33ml/m2. The right atrium is normal in size. Interatrial and interventricular septum intact. There is mild aortic valve sclerosis. There is mild aortic regurgitation. Mild mitral annular calcification present. [id number] mitral regurgitation is present. Mild tricuspid regurgitation present. Right ventricular systolic pressure is normal at < 35 mmHg. Trace/mild (physiologic) pulmonic regurgitation. The aortic root size is normal. Normal inferior vena cava with normal inspiratory collapse consistent with estimated right atrial pre ssure of 5 mmHg. There is no pericardial effusion. CONCLUSIONS -------- 1. Sinus rhythm. 2. This was a technically adequate study. 3. The left ventricular size is normal. 4. There is borderline concentric left ventricular hypertrophy. 5. Overall left ventricular systolic function is mildly impaired with, an EF between 45 - 50 %. 6. Basal inferior LV wall motion is hypokinetic. 7. Mid inferior LV wall motion is hypokinetic. 8. The right ventricle is normal in size. 9. LA is midly dilated 29-33ml/m2. 10. The right atrium is normal in size. 11. Interatrial and interventricular septum intact. 12. There is mild aortic valve sclerosis. 13. There is mild aortic regurgitation. 14. Mild mitral annular calcification present. 15. [id number] mitral regurgitation is present. 16. Mild tricuspid regurgitation present. 17. Right ventricular systolic pressure is normal at < 35 mmHg. 18. Trace/mild (physiologic) pulmonic regurgitation. 19. The aortic root size is normal. 20. Normal inferior vena cava with normal inspiratory collapse consistent with estimated right atrial pressure of 5 mmHg. 21. There is no pericardial effusion. INDEPENDENT LIVING INSTRUCTOR: Valencia Ha RDCS
[2019-03-27] MEDS: INSULIN ASPART (NovoLOG) 100 UNIT/ML VIAL SQ SCH ×2 (06:22→17:07)
[2019-03-27 06:42] LABS: African American GFR (CKD) >90 (>60 ml/min/1.73 sqM); Anion Gap 9 mmol/L; Blood Urea Nitrogen 17 mg/dL (7-17); Calcium 8.5 mg/dL (8.4-10.2); Carbon Dioxide 21 mmol/L (22-30); Chloride 106 mmol/L (98-107); Glucose 264 mg/dL (74-99); Potassium 4.7 mmol/L (3.5-5.1); Sodium 136 mmol/L (137-145)
[2019-03-27] MEDS ORDERED: predniSONE 10 MG TAB PO SCH (09:00)
[2019-03-27] MEDS ORDERED: predniSONE 5 MG TAB PO SCH (09:00)
[2019-03-27] MEDS: CEVIMELINE 30 MG CAP PO SCH (09:06)
[2019-03-27] MEDS: busPIRone HCl 5 MG TAB PO SCH (09:06)
[2019-03-27] MEDS: GABAPENTIN 300 MG CAP PO SCH (09:06)
[2019-03-27] MEDS: CLOPIDOGREL 75 MG TAB PO SCH (09:07)
[2019-03-27] MEDS: ASPIRIN 81 MG PO SCH (09:07)
[2019-03-27] MEDS: valACYclovir 500 MG TAB PO SCH (09:07)
[2019-03-27] MEDS: PANTOPRAZOLE 40 MG TABLET PO SCH (09:08)
[2019-03-27] MEDS: MEMANTINE 10 MG TAB PO SCH (09:08)
[2019-03-27] MEDS: APIXABAN 5 MG TAB PO SCH (09:08)
[2019-03-27] MEDS: DULoxetine HCL 30 MG CAPSULE.DR PO SCH (09:09)
[2019-03-27] MEDS: METOPROLOL TARTRATE 50 MG TAB PO SCH (09:09)
[2019-03-27] MEDS: TOFACITINIB CITRATE 5 MG PO SCH (10:31)
[2019-03-27] MEDS: CYCLOBENZAPRINE 10 MG TAB PO PRN (10:46)
[2019-03-27] MEDS: HYDROcodone/APAP 10-325MG 1 EACH TAB PO PRN (10:46)
[2019-03-27 12:06] LABS: Glucose,Whole Blood 263 mg/dL (75-99)
[2019-03-27 12:21] VITALS: BP 121/58; PULSE 74; RESP 16; TEMP 96.9
--- NOTE | 2019-03-27 15:41 | P.PN ---
Subjective Progress Note Date: 03/27/19 This is a 78-year-old female who follows regularly with Dr. Reilly in the office. She has a known history of diabetes, hypertension, hyperlipidemia, coronary artery disease, history of iron deficiency anemia, prior history of LAD stenting and RCA stenting. She underwent a cardiac catheterization by Dr. maddie archer in December of last year which revealed a 90% stenosis of the proximal stented segment of the RCA, the stent in the LAD had mild diffuse disease of 30-40% stenosis which was unchanged from previous in the obtuse marginal branch had a long area of 60% stenosis. Subsequent to that patient underwent stenting of the RCA by Dr. Valenzuela. The patient had an echo performed during that admission which revealed an ejection fraction of 20-25%, severe mitral regurgitation. Patient presents to the hospital on this occasion with symptoms of lethargy. She states that she developed a rash after the procedure was done by her traveling crane operator, she was started on Atarax and shortly thereafter developed a reaction, she became quite weak and lethargic. For this reason the patient came to the emergency room for further evaluation and treatment. Her EKG on presentation here showed atrial fibrillation with rapid ventricular response, according to the patient she had no prior documented history of atrial fibrillation. Chest x-ray did not reveal any acute process. Blood pressure 116/58, heart rate in the 70s, 96% on room air. She is afebrile. Her white blood cell count is normal, hemoglobin 11.5, platelet count 171 on admission, 146 this morning. Sodium 136, potassium 3.6, BUN 19 and creatinine 0.8. Magnesium 1.9, BNP level 2840. Troponin 0.023, 0.029, 0.028. TSH 0.548. At the time of my examination, patient feels well, she denies having any palpitations, but states that she had an episode of sharp chest pain prior to coming to the hospital, very different from the pain she has had in the past with her myocardial infarction. 03/27/2019 Patient seen and examined this morning, overall doing well. Continues to be in atrial fibrillation. From our perspective she may be able to be discharged home, we would recommend she continue the Eliquis along with the Plavix, no aspi rin. Hemodynamically the patient is stable. Echocardiogram with Doppler study revealed an ejection fraction of 45-50%. Objective - Vital Signs Vital signs: Vital Signs Temp 96.9 F L 03/27/19 12:00 Pulse 74 03/27/19 12:00 Resp 16 03/27/19 12:00 BP 121/58 03/27/19 12:00 Pulse Ox 96 03/27/19 12:00 Intake & Output 03/26/19 03/27/19 03/27/19 18:59 06:59 18:59 Intake Total 1746.189 700 Output Total 1 Balance 1745.189 700 Weight 83.2 kg Intake: IV 666 Heparin Sod,Pork in 0.45% 66 NaCl 25,000 unit In 0.45 % NaCl 1 250ml.bag @ 12 UNITS/KG/HR 9.798 mls/hr IV .Q24H RUKHSANA Rx#: [id number] Sodium Chloride 0.9% 1, 600 000 ml @ 100 mls/hr IV . Q10H STA Rx#:[id number] Intake, IV Titration 120.189 Amount Heparin Sod,Pork in 0.45% 120.189 NaCl 25,000 unit In 0.45 % NaCl 1 250ml.bag @ 12 UNITS/KG/HR 9.798 mls/hr IV .Q24H RUKHSANA Rx#: [id number] Oral 960 700 Output: Stool 1 Other: Voiding Method Toilet Toilet # Voids 3 1 3 # Bowel Movements 1 - Exam PHYSICAL EXAMINATION: GENERAL: 78-year-old female in no acute distress at the time of my examination HEENT: Head is atraumatic, normocephalic. Pupils equal, round. Sclera anicteric. Conjunctiva are clear. Mucous membranes of the mouth are moist. Neck is supple. There is no elevated jugular venous pressure. No carotid bruit is heard. HEART EXAMINATION: Heart S1 and S2 irregularly irregular a systolic murmur is heard CHEST EXAMINATION: Lungs are clear to auscultation and precussion. No chest wall tenderness is noted on palpation or with deep breathing. Patient does have a rash on her back ABDOMEN: Soft, nontender. Bowel sounds are heard. No organomegaly noted. EXTREMITIES: 2+ peripheral pulses with no evidence of peripheral edema and no calf tenderness noted. NEUROLOGIC patient is awake, alert and oriented 3 . - Labs CBC & Chem 7: 03/27/19 05:43 09/05/19 05:43 Labs: Abnormal Lab Results - Last 24 Hours (Table) 03/26/19 03/26/19 03/27/19 Range/Units 16:56 20:40 05:43 RBC 3.14 L (3.80-5.40) m/uL Hgb 9.2 L D (11.4-16.0) gm/dL Hct 28.3 L (34.0-46.0) % Lymphocytes # 0.8 L (1.0-4.8) k/uL Sodium (137-145) mmol/L Carbon Dioxide (22-30) mmol/L Glucose (74-99) mg/dL POC Glucose (mg/dL) 267 H 353 H (75-99) mg/dL 03/27/19 03/27/19 03/27/19 Range/Units 05:43 06:05 12:04 RBC (3.80-5.40) m/uL Hgb (11.4-16.0) gm/dL Hct (34.0-46.0) % Lymphocytes # (1.0-4.8) k/uL Sodium 136 L (137-145) mmol/L Carbon Dioxide 21 L (22-30) mmol/L Glucose 264 H (74-99) mg/dL POC Glucose (mg/dL) 257 H 263 H (75-99) mg/dL Microbiology - Last 24 Hours (Table) 03/25/19 20:09 Blood Culture - Preliminary Blood No Growth after 24 hours Assessment and Plan Plan: Assessment and plan #1 symptoms of weakness and lethargy, likely secondary to medication reaction, patient was recently started on Atarax, temperature of 100.9 #2 recent rash following the procedure at dermatology office #3 coronary artery disease history with prior LAD and RCA stenting, most recent stent was performed in 2018 #4 ischemic cardiomyopathy, documented ejection fraction of 20-25% by echo performed a year ago, severe mitral regurgitation #5 hypertension #6 hyperlipidemia #7 diabetes #8 nicotine dependence #9 family history of premature coronary artery disease Plan Echo showed normal left ventricular systolic function. From our perspective patient may be able to be discharged home today, we'll make her a follow-up appointment in the office post discharge. We'll recommend patient to be discharged home on Eliquis along with Plavix, no aspirin. DNP note has been reviewed, I agree with a documented findings and plan of care. Patient was seen and examined.
--- NOTE | 2019-03-28 10:19 | DS ---
DISCHARGE SUMMARY DATE OF SERVICE: 03/27/2019 FINAL DIAGNOSES: 1. Acute fever associated with urticarial rash with a reaction to the Atarax and abnormal temperature 100.9. 2. Atrial fibrillation with RVR, mild, which is resolved. 3. Underlying coronary artery disease with a history of LAD and RCA stenting with most recent stent was in 2018. 4. History of ischemic heart disease and her ejection fraction was noted at 20%-25%; however, the new echocardiogram done by Dr. Tinoco was indicating 45%-50%. 5. She had severe mitral regurgitation, hypertension and hypertensive heart disease, hyperlipidemia, diabetes mellitus type 2, on insulin. 6. She also has rheumatoid arthritis as well as osteoarthritis and treated by Dr. Alfonso and she has mentioned history of nicotine dependence, currently is not a smoker and she had a severe mitral regurgitation. 7. Family history of premature coronary artery disease. 8. Hypomagnesemia and currently magnesium is 2 and normal. On the recent, she has a rash with visitation to the Dermatology followed by acute reaction to the medication, Atarax, which was discontinued. Patient on Eliquis, Plavix and aspirin on discharge and we requested the assessment with the Cardiology for clarification of continuation of the three medicines or only two. Patient had an echocardiogram and was read by Dr. Tinoco with the impression of sinus rhythm at that time as well as she had left ventricular size is normal. She had ejection fraction 45%- 50%. She has basal inferior left ventricular wall motion hypokinetic. She had a mid inferior left ventricular wall motion hypokinetic. She had mild aortic regurgitation and she had left atrial mild dilated with the intra-atrial and interventricular septum is intact and she had mild aortic valve sclerosis, mild aortic regurgitation and she had mild mitral annular calcification. She had a mild to moderate mitral regurgitation, mild tricuspid regurgitation, and she had right ventricular systolic pressure normal, less than 35 mmHg. She had trace physiologic pulmonary regurgitation and the aortic root size is normal. No pain on discharge and her presentation, patient presented to the emergency room with the rash and chest discomfort and subsequently the emergency room physician admitted her to the floor and then subsequently the nursing staff called me with the presence of the patient; however, I was not called by the ER to tell me about the patient's admission. Patient did well and her heart rate returned to normal range, and subsequently as patient stabilized, discharged home today in a stable general condition with the vital sign on exam indicating that her temperature was 96.9 orally Fahrenheit. Her pulse rate regular sinus 74 beats per minute, respiratory rate 16 per minute, nonlabored, her blood pressure 121/58 with a mean arterial pressure 79. Her oxygen saturation was 96. Patient in the ER was changed her medication Toprol-XL to metoprolol tartrate 25 mg twice a day and patient given a prescription for that. REVIEWING OF LABORATORY: Patient today, her white count is 4.6 with a hemoglobin 9.2, hematocrit 28.3 with the underlying anemia of chronic disease. Her sodium 136, and with the normal range 137 and her potassium 4.7, chloride 106, carbon dioxide 21 and a normal range of 22, which is insignificant. Her BUN of 9, creatinine is 0.73 with the underlying estimated glomerular filtration rate for then non- 80 and she had a blood sugar was elevated with the use of Solu-Medrol 40 mg IV every 12 hours for 2 doses for the clarification of her itching as well as her scratching with the presence of hives secondary to Atarax that she presumed and her blood sugar, she continued to be monitored at home and use as she is on basal insulin as well as short-acting and she is followed by Dr. Zulema Valadez, the recruiting intern who she will be seeing for followup. Currently magnesium is 2 and normal, calcium is 8.5. DISCHARGE PHYSICAL EXAM: Patient is feeling fine. No complaint. No chest pain. No feeling of arrhythmia and the heart rate was in the 70-80 per minute and the blood pressure stable. Her HEENT, head was normocephalic, atraumatic. Pupil was equal, reactive. Conjunctivae were pink. Sclerae were nonicteric and the oropharynx, he had dentures and normal and she has dentures with the upper and lower natural, uvula midline. No facial asymmetry. The neck was supple. No JVD. No thyromegaly. No lymphadenopathy. Trachea midline. The chest was clear to auscultation and percussion. No wheezes, no rhonchi. Heart, PMI in the fifth intercostal space outside midclavicular line and the normal S1, S2 and no gallop and no evidence of atrial fibrillation on discharge. The abdomen is obese, positive bowel sounds. No organ enlargement and the extremities no edema and positive pulses. Skin, resolution of the rash and no itching and no hives. ASSESSMENT: Patient in stable general condition, cleared by Cardiology for discharge and we were requesting from Cardiology to evaluate the three medications, Plavix as well as the Eliquis as well as aspirin and to decide which one needs to be stopped per the Cardiology recommendation. Patient otherwise will be discharged home today to follow up with bilingual teacher aide as well and to follow up with me in 3-5 days. BLANK / ROXANN: [id number] /
--- NOTE | 2019-03-31 08:47 | CDI ---
Documentation Clarification Form Date: 03/31/2019 8:43:00 AM From: Inessa Hines Phone: If you have a question regarding this query, please contact Seema Eric at [phone] between 8am and 5pm. Admit Date: 03/25/2019 7:13:00 PM Patient Name: Marie Zazueta Visit Number: [id number] Discharge Date: 03/27/2019 3:42:00 PM ATTENTION: The Clinical Documentation Specialists (CDI) and [facility] Coding Staff appreciate your assistance in clarifying documentation. Please respond to the clarification below the line at the bottom and electronically sign. The CDI & [facility] Coding staff will review the response and follow-up if needed. Please note: Queries are made part of the Legal Health Record. If you have any questions, please contact the author of this message via ITS. Dr. Tom Tinoco Atrial Fibrillation is documented throughout the chart. History/Risk Factors: Patient admitted with adverse reaction to Atarax, Hypertension, CAD, aortic valve sclerosis and regurgitation, mitral annular calcification Clinical Indicators: Chest pain, shortness of breath, elevated heart rate EKG/telemetry: On presentation showed atrial fibrillation with RVR Treatment: IV Cardizem ordered but not given In your professional opinion, can you please clarify the type of Atrial Fibrillation, if known? Chronic/Permanent Paroxysmal Persistent Other, please specify Unable to determine MTDD
[2019-04-11] MEDS ORDERED: predniSONE 5 MG TAB PO SCH (09:00)
== END 2019-03-27 15:42 | disposition home or self-care (01) | DRG 310 ==
LOC: EC 16:56 → 3SCARD 19:13
PROVIDERS: ADMIT Internal Medicine; ATTEND Internal Medicine
DX: I48.91 Unspecified atrial fibrillation (principal); L27.0 Generalized skin eruption due to drugs and medicaments taken internally; E11.65 Type 2 diabetes mellitus with hyperglycemia; E11.42 Type 2 diabetes mellitus with diabetic polyneuropathy; I25.5 Ischemic cardiomyopathy; R50.2 Drug induced fever; D63.8 Anemia in other chronic diseases classified elsewhere; I11.9 Hypertensive heart disease without heart failure; M06.9 Rheumatoid arthritis, unspecified; T43.595A Adverse effect of other antipsychotics and neuroleptics, initial encounter; E78.5 Hyperlipidemia, unspecified; F32.9 Major depressive disorder, single episode, unspecified; F41.9 Anxiety disorder, unspecified; G25.81 Restless legs syndrome; G47.00 Insomnia, unspecified; I08.0 Rheumatic disorders of both mitral and aortic valves; I25.10 Atherosclerotic heart disease of native coronary artery without angina pectoris; I25.2 Old myocardial infarction; K58.9 Irritable bowel syndrome, unspecified; M19.90 Unspecified osteoarthritis, unspecified site; M79.7 Fibromyalgia; G89.29 Other chronic pain; K44.9 Diaphragmatic hernia without obstruction or gangrene; K57.90 Diverticulosis of intestine, part unspecified, without perforation or abscess without bleeding; K64.9 Unspecified hemorrhoids; M54.9 Dorsalgia, unspecified; Z79.02 Long term (current) use of antithrombotics/antiplatelets; Z79.4 Long term (current) use of insulin; Z79.82 Long term (current) use of aspirin; Z79.899 Other long term (current) drug therapy; Z85.828 Personal history of other malignant neoplasm of skin; Z86.19 Personal history of other infectious and parasitic diseases; Z86.718 Personal history of other venous thrombosis and embolism; Z86.73 Personal history of transient ischemic attack (TIA), and cerebral infarction without residual deficits; Z90.710 Acquired absence of both cervix and uterus; Z95.5 Presence of coronary angioplasty implant and graft; Z90.49 Acquired absence of other specified parts of digestive tract; Z98.42 Cataract extraction status, left eye; Z98.41 Cataract extraction status, right eye; Z96.1 Presence of intraocular lens; Z87.891 Personal history of nicotine dependence; Z91.040 Latex allergy status; Z88.2 Allergy status to sulfonamides; Z88.8 Allergy status to other drugs, medicaments and biological substances; Z91.048 Other nonmedicinal substance allergy status; Z91.81 History of falling; Z82.49 Family history of ischemic heart disease and other diseases of the circulatory system
CPT/HCPCS: 36415; 71046; 80048; 80053; 80061; 81003; 82550; 83735; 83880; 84100; 84443; 84484; 85025; 85049; 85610; 85730; 87040; 93005; 93306; 94760; 96361; 96374; 99285

== ENCOUNTER → 2019-04-23 | Outpatient (CLI) | payer MEDICARE ==
[2019-04-23 13:10] LABS: Basophils % (A) 1 %; Eosinophils # (A) 0.2 k/uL (0-0.7); Eosinophils % (A) 3 %; HCT 34.9 % (34.0-46.0); HGB 10.9 gm/dL (11.4-16.0); Hypochromasia Slight; Lymphocytes # (A) 2.1 k/uL (1.0-4.8); Lymphocytes % (A) 36 %; MCH 28.5 pg (25.0-35.0); MCHC 31.2 g/dL (31.0-37.0); MCV 91.3 fL (80.0-100.0); Mean Platelet Volume 7.5; Monocytes # (A) 0.3 k/uL (0-1.0); Monocytes % (A) 6 %; Neutrophils % (A) 52 %; Platelet Count 184 k/uL (150-450); RBC 3.83 m/uL (3.80-5.40); RDW 14.2 % (11.5-15.5); WBC 5.7 k/uL (3.8-10.6)
[2019-04-23 18:49] LABS: ALT 17 U/L (8-44); AST 18 U/L (13-35); African American GFR (CKD) 71.5 (60.0-200.0); Albumin/Globulin Ratio 2.22 (1.60-3.17); Alkaline Phosphatase 59 U/L (41-126); Bilirubin, Conjugated <0.20 mg/dL (0.20-0.40); Calcium 9.3 mg/dL (8.7-10.3); Chloride 108 mmol/L (96-109); Globulin 1.8 g/dL (1.6-3.3); Glucose 175 mg/dL (70-110); Non-African American GFR(CKD) 61.7 (60.0-200.0); Potassium 4.3 mmol/L (3.5-5.5); Sodium 143 mmol/L (135-145); Total Bilirubin 0.3 mg/dL (0.2-1.2); Total Protein 5.8 g/dL (6.2-8.2)
== END | disposition home or self-care (01) ==
LOC: LABWHC1 11:43
PROVIDERS: ATTEND Dermatology Procedural Dermatology
DX: E03.9 Hypothyroidism, unspecified (principal); L29.8 Other pruritus
CPT/HCPCS: 36415; 80048; 80076; 84439; 84443; 85025

== ENCOUNTER 2019-05-09 17:13 | Inpatient (IN) | payer MEDICARE ==
--- NOTE | 2019-05-09 17:24 | US ---
EXAMINATION TYPE: US venous doppler duplex LE DATE OF EXAM: 05/09/2019 5:02 PM COMPARISON: NONE CLINICAL HISTORY: R22.42 SWELLING OF LOWER LIMBS. Edema and pain bilateral legs for 1 week, right leg worse SIDE PERFORMED: bilateral TECHNIQUE: The lower extremity deep venous system is examined utilizing real time linear array sonog lauren with graded compression, doppler sonography and color-flow sonography. VESSELS IMAGED: External Iliac Vein (EIV) Common Femoral Vein Deep Femoral Vein Greater Saphenous Vein * Femoral Vein Popliteal Vein Small Saphenous Vein * Proximal Calf Veins (* superficial vessels) Right Leg: No evidence of DVT as visualized Left Leg: Positive for DVT left femoral vein extending into popliteal vein IMPRESSION: There is evidence of acute deep venous thrombosis in the left femoral vein extending to t he knee. No evidence of deep venous thrombosis in the right leg.
[2019-05-09] MEDS ORDERED: HEPARIN SODIUM,PORCINE 10,000 UNIT/ML 1 ML VIAL IV ONE (17:43)
--- NOTE | 2019-05-09 18:01 | ED ---
General Adult HPI - General Chief complaint: Recheck/Abnormal Lab/Rx Stated complaint: Poss dvt-came from [place] Time Seen by Provider: 05/09/19 17:38 Source: patient Mode of arrival: wheelchair Limitations: no limitations - History of Present Illness Initial comments: Dictation was produced using [employer] dictation software. please excuse any grammatical, word or spelling errors. Chief Complaint: 78-year-old female sent in by primary care physician for DVT. History of Present Illness: Patient is 78-year-old female she was sent in by primary care physician for left lower extremity DVT. Patient has been having days of groin pain bilaterally. She complains of some swelling in her left leg. Patient seen at primary care physician's office where she was evaluated. She was sent over to have ultrasound performed of her lower extremities. Patient was found to have a left lower extremity DVT. Denies any chest pain or sh ortness of breath. The ROS documented in this emergency department record has been reviewed and co nfirmed by me. Those systems with pertinent positive or negative responses have been documented in the HPI. All other systems are other negative and/or noncontributory. PHYSICAL EXAM: General Impression: Alert and oriented x3, not in acute distress HEENT: Normocephalic atraumatic, extra-ocular movements intact, pupils equal and reactive to light bilaterally, mucous membranes moist. Cardiovascular: Heart regular rate and rhythm, S1&S2 audible, no murmurs, rubs or gallops Chest: Lungs clear to auscultation bilaterally, no rhonchi, no wheeze, no rales Abdomen: Bowel sounds present, abdomen soft, non-tender, non-distended, no organomegaly Musculoskeletal: Pulses present and equal in all extremities, no peripheral edema, swelling at the mid tib area of the left compared to the right Motor: no focal deficits noted Neurological: CN II-XII grossly intact, no focal motor or sensory deficits noted Skin: Intact with no visualized rashes Psych: Normal affect and mood ED course: 78-year-old male presents with left lower extremity DVT. Patient has no signs or symptoms to suggest pulmonary embolus. On arrival are within acceptable limits. Discussed patient case with Dr. Garcia who requests the patient be admitted with anticoagulation medications. Return evaluation obtained. Pending CBC. Coag panel metabolic panel grossly unremarkable. Chest x-ray is nonacute. Pelvis x-ray shows no acute processes. Suspicion case with Dr. Garcia who is willing to accept patients care. Patient started on heparin. EKG interpretation: Ventricular rate 77, normal sinus rhythm,. Interval to 6, care is 84, QTC 439. No WA prolongation, no QTC prolongation, no ST or T-wave changes noted. Compared to EKG from 03/25/2019 without any changes. Overall, this EKG is unremarkable - Related Data Home Medications Medication Instructions Recorded Confirmed Atorvastatin [Lipitor] 80 mg PO HS 04/29/14 05/09/19 Cevimeline [Evoxac] 30 mg PO BID 04/29/14 05/09/19 Gabapentin [Neurontin] 600 mg PO DIRECTED 04/29/14 05/09/19 Omeprazole [PriLOSEC] 40 mg PO DAILY 12/01/17 05/09/19 Tofacitinib Citrate [Xeljanz] 5 mg PO BID 12/01/17 05/09/19 valACYclovir [Valtrex] 500 mg PO DAILY 12/01/17 05/09/19 Cyclobenzaprine [Flexeril] 10 mg PO TID PRN 07/18/18 05/09/19 Insulin Aspart (Niacinamide) See Protocol SQ ACHS PRN 07/18/18 05/09/19 [Fiasp 100 Unit/ml Flextouch] Insulin Glargine,Hum.rec.anlog 10 unit SQ HS 07/18/18 05/09/19 [Lantus Solostar] busPIRone HCl [Buspar] 5 mg PO BID 07/18/18 05/09/19 rOPINIRole HCL [Requip] 0.25 mg PO HS 07/18/18 05/09/19 Loratadine [Claritin] 10 mg PO DAILY PRN 02/01/19 05/09/19 Hydrocodone/Acetaminophen [[place] 1 tab PO TID PRN 03/25/19 05/09/19 10-325] Memantine [Namenda] 10 mg PO DAILY 03/25/19 05/09/19 Terazosin [Hytrin] 1 mg PO HS 03/25/19 05/09/19 Previous Rx's Medication Instructions Recorded Clopidogrel [Plavix] 75 mg PO DAILY tab 01/11/18 Nitroglycerin Sl Tabs [Nitrostat] 0.4 mg SUBLINGUAL Q5M PRN tab 01/11/18 Apixaban [Eliquis] 5 mg PO BID tab 03/27/19 Metoprolol Tartrate [Lopressor] 50 mg PO BID #60 tab 03/27/19 Pramox-Calamine 1-8% Lotion 1 applic TOPICAL TID PRN lotion 03/27/19 [Caladryl] Zolpidem [Ambien] 5 mg PO HS PRN tab 03/27/19 Allergies Allergy/AdvReac Type Severity Reaction Status Date / Time etanercept [From Enbrel] Allergy Rash/Hives Verified 05/09/19 19:14 latex Allergy Itching Verified 05/09/19 19:14 Sulfa (Sulfonamide Allergy Rash/Hives Verified 05/09/19 19:14 Antibiotics) tape Allergy Rash/Hives Uncoded 05/09/19 17:16 Review of Systems ROS Statement: Those systems with pertinent positive or pertinent negative responses have been documented in the HPI. ROS Other: All systems not noted in ROS Statement are negative. Past Medical History Past Medical History: Coronary Artery Disease (CAD), Chest Pain / Angina, CVA/TIA, Diabetes Mellitus, Deep Vein Thrombosis (DVT), Eye Disorder, Fibromyalgia, Hyperlipidemia, Hypertension, Myocardial Infarction ([place]), Osteoarthritis (OA), Rheumatoid Arthritis (RA) Additional Past Medical History / Comment(s): "Leaky" heart valve, NIDDM type II, neuropathy R hand and feet, DVT R calf, chronic pain, chronic back pain, DDD, anemia, hiatal hernia, hemorrhoids, IBS, diverticulosis, constipation, sinus problems, falls, skin cancer with removal, shingelle "break outs"- last time a few months ago. Last Myocardial Infarction Date:: 2017 History of Any Multi-Drug Resistant Organisms: None Reported Past Surgical History: Appendectomy, Cholecystectomy, Heart Catheterization, Heart Catheterization With Stent, Hernia Repair, Hysterectomy, Tonsillectomy Additional Past Surgical History / Comment(s): PCI with multiple stents(6-7), ventral hernia repair, colonoscopy, bilateral cataract removals, skin cancer removals. Past Anesthesia/Blood Transfusion Reactions: No Reported Reaction Date of Last Stent Placement:: 2017 Past Psychological History: Depression Smoking Status: Former smoker Past Alcohol Use History: None Reported Past Drug Use History: None Reported - Past Family History Father Additional Family Medical History / Comment(s): pt stated had heart issues, but not sure what Mother Additional Family Medical History / Comment(s): leaking valve General Exam Limitations: no limitations Course Vital Signs 05/09/19 05/09/19 17:18 18:57 Temperature 98.1 F Pulse Rate 75 77 Respiratory 18 19 Rate Blood Pressure 152/73 127/56 O2 Sat by Pulse 98 99 Oximetry Medical Decision Making - Lab Data Result diagrams: 05/09/19 18:35 Lab Results 05/09/19 05/09/19 Range/Units 18:35 18:35 PT 9.8 (9.0-12.0) sec INR 0.9 (<1.2) APTT 22.4 (22.0-30.0) sec Sodium 138 (137-145) mmol/L Potassium 4.2 (3.5-5.1) mmol/L Chloride 106 (98-107) mmol/L Carbon Dioxide 21 L (22-30) mmol/L Anion Gap 11 mmol/L BUN 27 H (7-17) mg/dL Creatinine 0.77 (0.52-1.04) mg/dL Est GFR (CKD-EPI)AfAm 86 (>60 ml/min/1.73 sqM) Est GFR (CKD-EPI)NonAf 75 (>60 ml/min/1.73 sqM) Glucose 117 H (74-99) mg/dL Calcium 9.6 (8.4-10.2) mg/dL Disposition Clinical Impression: DVT (deep venous thrombosis) Disposition: ADMITTED IP TO THIS [facility] Condition: Fair Referrals: Cornelio Garcia MD [Primary Care Provider] - 1-2 days Decision Time: 21:02
[2019-05-09] MEDS: HEPARIN SOD,PORK IN 0.45% NACL 25,000 UNIT in 0.45% NACL 1 250ML.BAG IV SCH (18:52)
[2019-05-09 18:56] LABS: Calcium 9.6 mg/dL (8.4-10.2); Potassium 4.2 mmol/L (3.5-5.1)
[2019-05-09 19:09] LABS: INR 0.9 (<1.2); Partial Thromboplastin Time 22.4 sec (22.0-30.0); Prothrombin Time 9.8 sec (9.0-12.0)
[2019-05-09] MEDS ORDERED: LORATADINE 10 MG TAB PO PRN (19:30)
[2019-05-09] MEDS ORDERED: NITROGLYCERIN SL TABS 0.4 MG TAB SUBLINGUAL PRN (19:30)
[2019-05-09] MEDS ORDERED: PRAMOX-CALAMINE 1-8% LOTION 1 APPLIC/5 ML LOTION TOPICAL PRN (19:30)
[2019-05-09] MEDS ORDERED: INSULIN ASPART SQ PRN (19:30)
--- NOTE | 2019-05-09 19:39 | XR ---
EXAMINATION TYPE: XR chest 1V portable DATE OF EXAM: 05/09/2019 COMPARISON: 03/25/2019 HISTORY: Leg edema TECHNIQUE: Single frontal view of the chest is obtained. FINDINGS: There is no heart failure nor confluent pneumonic infiltrate. Costophrenic angles are flakito r. Heart size is normal. IMPRESSION: No active cardiopulmonary disease. Normal heart. No change.
--- NOTE | 2019-05-09 19:49 | XR ---
EXAMINATION TYPE: XR pelvis AP view DATE OF EXAM: 05/09/2019 COMPARISON: NONE HISTORY: Leg edema TECHNIQUE: Single view FINDINGS: Pelvic ring is intact. Proximal femurs and hip joints are intact. Sacroiliac joints appear normal. There is vascular calcification. IMPRESSION: Pelvis appears normal for age. No fracture.
[2019-05-09] MEDS: CYCLOBENZAPRINE 10 MG TAB PO PRN (19:59)
--- NOTE | 2019-05-09 20:08 | HP ---
HISTORY AND PHYSICAL DATE OF SERVICE: 05/09/2019 CHIEF COMPLAINT: The patient came today, requested to be seen in the office because of her leg swelling. She did not have any other symptoms except the leg swelling, and the leg was painful at times in both lower extremities. HISTORY OF PRESENT ILLNESS: This patient is a 78-year-old white female with multiple medical problems. 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 Ferraro, and she came today because her leg was swelling. She denied any chest pain or shortness of breath or tenderness on the chest. She was examined in the office today, and the only impression was tenderness on the lower extremities bilaterally, worse on the left than the right, with the distribution of the femoral vein. She had ankle swelling 2+ and positive pulses on the dorsalis pedis and posterior tibial. However, she had pain at the junction of the calf muscle and the knee on the medial side. Subsequently the patient was sent to [facility] for a STAT ultrasound of the lower extremities to rule out DVT and to obtain D-dimer as well. We were able to catch the service before the end of the day and subsequently the patient had the test and I was called from the ultrasound department that the patient has positive DVT in the left femoral vein extending into the popliteal vein on the left side. No DVT was visualized on the right side. The department advised sending the patient to the emergency room and I was called from the emergency room with the finding as well and discussed it with the ER physician. Patient will be admitted to the floor with heparin protocol. ALLERGIES: She had flushing and itching and she thought this was from Neurontin. The patient was advised in the office to stop the Neurontin for now. She has ALLERGIES to: 1. LIPITOR. 2. LISINOPRIL. 3. LYRICA. 4. ENBREL. 5. SULFA. 6. CIPRO. 7. ATARAX. MEDICATIONS: Her current list of medications: 1. Cough syrup which is promethazine without codeine 6.25 mg/5 mL. She was taking it 4 times a day. 2. Atorvastatin 40 mg once a day at bedtime. She had previous reaction, but currently she has consideration of reaction from Lipitor or not. We will be consulting Dr. Ferraro. 3. She is on anticoagulation on Eliquis 5 mg tablet twice a day in spite of the presence of DVT of the left leg. 4. Metoprolol tartrate 50 mg 1 tablet twice a day. 5. Terazosin 1 mg at bedtime. 6. Prednisone 10 mg daily. That is for rheumatoid arthritis. 7. Buspirone 5 mg twice a day. 8. She had allergy in the eyes and she is using [facility]. 9. From Dr. Lemons for back pain she takes [place] 325/10 thee times a day. 10.She has a history of viral infection and herpes simplex and she has been taking 500 mg of Valtrex once a day. 11.Namenda 10 mg twice a day. 12.From the rheumatology office, the [facility], she is also on Xeljanz [address] Alfonso and continued by the PA of Dr. Alfonso, Any. 13.Ropinirole for restless legs syndrome. 14.Fluticasone nasal spray 1 spray in the nostril twice a day a.m. and p.m. 15.With her allergies, she is also taking Claritin 10 mg or the generic form, loratadine. 16.Omeprazole 40 mg before breakfast. 17.Gabapentin 600 mg twice a day from Dr. Lemons. 18.She currently thought that her itching was from the Neurontin and was advised to stop it temporarily. 19.She is a diabetic, on insulin therapy. She is taking Lantus Solostar 100 units/mL and she takes 10 units at bedtime. 20.CBG to scale with Humalog KwikPen 100. She does that according to scale. 21.For chronic constipation, she was taking MiraLAX 17 grams p.o. dissolved with water or juice once daily as needed. 22.Senokot S, which is 50 mg/8.6 mg one twice a day. 23.Nitroglycerin; however, she denied any chest pain. This is sublingual 0.4 mg p.r.n. 24.Cyclobenzaprine, which is Flexeril, from Dr. eLmons's team, the [facility]. 25.Cevimeline from Dr. Alfonso, with the [facility] giving her 30 mg capsule as directed for dryness of the mouth with the Sjogren syndrome. When the patient was seen in the office, she was able to ambulate. REVIEW OF SYSTEMS: NEUROPSYCHIATRY: Patient was stable. No history of stroke in the past. CARDIOVASCULAR: No palpitation or chest pain. RESPIRATORY: No cough or expectoration or shortness of breath. GI: No hematemesis or melena or hematochezia. Normal bowel movement. MUSCULOSKELETAL: She had underlying history of rheumatoid arthritis as well as osteoarthritis and chronic pain syndrome and was treated by Dr. Alfonso, the saddle and harness maker, and Dr. Lemons, the neurologist. ENDOCRINE: She has history of diabetes mellitus, type 2, insulin-dependent, and has been monitored by Dr. Zulema Valadez, art studio teacher. The patient has underlying cognitive function impairment and has been started on medication that was initiated by the PA of Dr. Lemons's office. PHYSICAL EXAMINATION: The patient was conscious, alert, oriented x3. Her weight in the office was 184.4. Blood pressure 132/70, pulse regular 82 per minute, respiratory rate 16 per minute. She was afebrile. Her pulse ox was 98%. Height was 62-3/4. HEENT: The head was normocephalic, atraumatic. Pupils equal, reactive. Conjunctivae were pink. Sclerae were nonicteric. Her nose was negative. Oropharynx: She had partial and upper plate. No abnormality. Uvula midline. The throat were normal. She has flushed skin of the face and neck; she thought that was from the Neurontin; however, that could be also associated with something else, as she had in the past a problem with Lipitor, with rash and itching. That has been described by Dr. Ferraro, Cardiology, and I did not know whether he knows or not, but for the time being we will consult Cardiology as well. The chest was clear to auscultation and percussion. Normal breath sounds. HEART: PMI in the fifth intercostal space. Normal S1, S2. No gallop. She has history of hypertension with hypertensive heart disease and history of fibromyalgia as well. She has history of COPD and chronic obstructive lung disease, cervicalgia, as well as GERD disease. She has anxiety and she has been seen in the past by Dr. Will and currently Dr. Lemons. She has history of restless legs syndrome as well. The abdomen was soft. Positive bowel sounds. No tenderness in the 4 quadrants. EXTREMITIES: She had bilateral pitting edema, mainly on the foot, ankle, shaft, and she has some tenderness on the junction on the left side between the venous crossing the popliteal. No erythema has been present with that. She had been anticoagulated and the problem is how that happened with the anticoagulation. Patient admitted to the hospital and will start the heparin protocol and we will consult Cardiology and also Hematology/Oncology. MMODL / IJN: [id number] /
[2019-05-09] MEDS ORDERED: NALOXONE 0.4 MG/ML 1 ML VIAL IV PRN (20:59)
[2019-05-09] MEDS ORDERED: INSULIN DETEMIR (LEVEMIR) 100 UNIT/ML SYR SQ SCH (21:00)
[2019-05-09] MEDS: CEVIMELINE 30 MG CAP PO SCH (22:51)
[2019-05-09] MEDS: busPIRone HCl 5 MG TAB PO SCH (22:51)
[2019-05-09] MEDS: TOFACITINIB CITRATE 5 MG PO SCH (22:53)
[2019-05-09 22:59] LABS: Glucose,Whole Blood 191 mg/dL (75-99)
[2019-05-10] MEDS: HYDROcodone/APAP 10-325MG 1 EACH TAB PO PRN ×3 (00:10→18:05)
[2019-05-10] MEDS: METOPROLOL TARTRATE 50 MG TAB PO SCH ×3 (00:10→20:32)
[2019-05-10] MEDS: ZOLPIDEM 5 MG TAB PO PRN ×2 (00:11→23:39)
[2019-05-10] MEDS: DOXAZOSIN 1 MG TAB PO SCH ×2 (00:49→20:31)
[2019-05-10 07:59] LABS: Glucose,Whole Blood 103 mg/dL (75-99)
[2019-05-10] MEDS: INSULIN ASPART (NovoLOG) 100 UNIT/ML VIAL SQ SCH ×4 (09:15→20:31)
[2019-05-10] MEDS: PANTOPRAZOLE 40 MG TABLET PO SCH (09:18)
[2019-05-10] MEDS: CLOPIDOGREL 75 MG TAB PO SCH (09:18)
[2019-05-10] MEDS: busPIRone HCl 5 MG TAB PO SCH ×2 (09:19→20:31)
[2019-05-10] MEDS: TOFACITINIB CITRATE 5 MG PO SCH ×2 (09:19→20:32)
[2019-05-10] MEDS: valACYclovir 500 MG TAB PO SCH (09:19)
[2019-05-10] MEDS: CEVIMELINE 30 MG CAP PO SCH ×2 (09:19→20:31)
[2019-05-10] MEDS: MEMANTINE 10 MG TAB PO SCH (09:19)
[2019-05-10] MEDS: CYCLOBENZAPRINE 10 MG TAB PO PRN ×2 (09:24→18:06)
[2019-05-10 11:04] LABS: Glucose,Whole Blood 231 mg/dL (75-99)
--- NOTE | 2019-05-10 12:43 | P.CRDCN ---
<Tavia Watson - Last Filed: 05/10/19 13:41> History of Present Illness Consult date: 05/10/19 Reason for Consult (text): DVT History of present illness: the patient is a 78-year-old female with past medical history of new onset paroxysmal atrial fibrillation, diabetes mellitus, hypertension, hyperlipidemia, coronary artery disease status post stenting of the RCA and LAD, iron deficiency edema, and ischemic cardiomyopathy, who follows with Dr. Ferraro in the off ice.she was sent to the hospital by her primary care provider after she was found to have a left femoral and left popliteal DVT on recent venous ultrasound. She states while she was in the emergency room she also had developed some chest discomfort which was relieved with nitroglycerin. EKG shows sinus mechanism without acute ST or T-wave changes.recent echocardiogram in March 2019 shows LV function of 45-50% with basal inferior and mid inferior hypokinesis, mild aortic sclerosis, mild aortic regurgitation, and mild to moderate mitral regurgitation. sodium 138, potassium 4.2, chloride 106, BUN 27, and creatinine 0.77. on exam this morning she is currently sitting comfortably at the side of her bed. She states she does continue to have some discomfort in her lower extremities, which is worse on the right. She denies any recurrence of her chest discomfort since her initial episode in the emergency room. PAST MEDICAL HISTORY: CAD status post stenting, hypertension, hyperlipidemia, ischemic cardiomyopathy, diabetes mellitus, deficiency anemia REVIEW OF SYSTEMS: No fever or chills. No cough or expectoration. No diaphoresis. Patient denies headache, dizziness, blurred vision, double vision. Patient denies any stomach discomfort. No nausea, vomiting. No hematochezia. No hematemesis. Denies any black stools or blood in his stools. Denies dysuria or hematuria. No muscle weakness or numbness. no chest discomfort or shortness of breath. Bilateral lower extremity discomfort, worse on the right. PHYSICAL EXAMINATION: This is a 78-year-old female in no apparent distress at the time of my examination. HEENT: Head is atraumatic, normocephalic. Pupils are equal, round. Sclerae anicteric. Conjunctivae are clear. Mucous membranes of the mouth are moist. Neck is supple. There is no jugular venous distention. No carotid bruit is heard. CHEST EXAMINATION: Lungs are clear to auscultation. No chest wall tenderness is noted on palpation or with deep breathing. HEART EXAMINATION: Heart regular rate and rhythm. S1, S2 heard.soft systolic murmur. No gallops or rub. ABDOMEN: Soft, nontender. Bowel sounds are heard. No organomegaly noted. EXTREMITIES: 2+ peripheral pulses with no evidence of peripheral edema and no calf tenderness noted. NEUROLOGIC EXAMINATION: Patient is awake, alert and oriented x3. LABORATORY DATA: sodium 138, potassium 4.2, chloride 106, BUN 27, and creatinine 0.77.. FINAL ASSESSMENT AND PLAN: #1 acute DVT, left femoral and left popliteal #2 CAD #3 hypertension, controlled #4 dyslipidemia #5 ischemic cardiomyopathy, recent LV function 45-50% #6 mitral regurgitation #7 paroxysmal atrial fibrillation, on Eliquis PLAN: We will continue heparin drip and current medication regimen. If she has recurrent chest discomfort, stress testing will be considered. hematology consult for acute DVT on novel anticoagulation Past Medical History Past Medical History: Coronary Artery Disease (CAD), Chest Pain / Angina, CVA/TIA, Diabetes Mellitus, Deep Vein Thrombosis (DVT), Eye Disorder, Fibromyalgia, Hyperlipidemia, Hypertension, Myocardial Infarction (NM), Osteoarthritis (OA), Rheumatoid Arthritis (RA) Additional Past Medical History / Comment(s): "Leaky" heart valve, NIDDM type II, neuropathy R hand and feet, DVT R calf, chronic pain, chronic back pain, DDD, anemia, hiatal hernia, hemorrhoids, IBS, diverticulosis, constipation, sinus problems, falls, skin cancer with removal, shingelle "break outs" Last Myocardial Infarction Date:: 2017 History of Any Multi-Drug Resistant Organisms: None Reported Past Surgical History: Appendectomy, Cholecystectomy, Heart Catheterization, Heart Catheterization With Stent, Hernia Repair, Hysterectomy, Tonsillectomy Additional Past Surgical History / Comment(s): PCI with multiple stents(6-7), ventral hernia repair, colonoscopy, bilateral cataract removals, skin cancer removals. Past Anesthesia/Blood Transfusion Reactions: No Reported Reaction Date of Last Stent Placement:: 2017 Past Psychological History: Depression Smoking Status: Former smoker Past Alcohol Use History: None Reported Additional Past Alcohol Use History / Comment(s): Pt started smoking in 1 and quit in 1980. Past Drug Use History: None Reported - Past Family History Father Additional Family Medical History / Comment(s): pt stated had heart issues, but not sure what Mother Additional Family Medical History / Comment(s): leaking valve Medications and Allergies Home Medications Medication Instructions Recorded Confirmed Type Atorvastatin [Lipitor] 80 mg PO HS 04/29/14 05/09/19 History Cevimeline [Evoxac] 30 mg PO BID 04/29/14 05/09/19 History Gabapentin [Neurontin] 600 mg PO DIRECTED 04/29/14 05/09/19 History Omeprazole [PriLOSEC] 40 mg PO DAILY 12/01/17 05/09/19 History Tofacitinib Citrate [Xeljanz] 5 mg PO BID 12/01/17 05/09/19 History valACYclovir [Valtrex] 500 mg PO DAILY 12/01/17 05/09/19 History Clopidogrel [Plavix] 75 mg PO DAILY tab 01/11/18 05/09/19 Rx Nitroglycerin Sl Tabs [Nitrostat] 0.4 mg SUBLINGUAL Q5M PRN tab 01/11/18 05/09/19 Rx Cyclobenzaprine [Flexeril] 10 mg PO TID PRN 07/18/18 05/09/19 History Insulin Aspart (Niacinamide) See Protocol SQ ACHS PRN 07/18/18 05/09/19 History [Fiasp 100 Unit/ml Flextouch] Insulin Glargine,Hum.rec.anlog 10 unit SQ HS 07/18/18 05/09/19 History [Lantus Solostar] busPIRone HCl [Buspar] 5 mg PO BID 07/18/18 05/09/19 History rOPINIRole HCL [Requip] 0.25 mg PO HS 07/18/18 05/09/19 History Loratadine [Claritin] 10 mg PO DAILY PRN 02/01/19 05/09/19 History Hydrocodone/Acetaminophen [Vesper 1 tab PO TID PRN 03/25/19 05/09/19 History 10-325] Memantine [Namenda] 10 mg PO DAILY 03/25/19 05/09/19 History Terazosin [Hytrin] 1 mg PO HS 03/25/19 05/09/19 History Apixaban [Eliquis] 5 mg PO BID tab 03/27/19 05/09/19 Rx Metoprolol Tartrate [Lopressor] 50 mg PO BID #60 tab 03/27/19 05/09/19 Rx Pramox-Calamine 1-8% Lotion 1 applic TOPICAL TID PRN lotion 03/27/19 05/09/19 Rx [Caladryl] Zolpidem [Ambien] 5 mg PO HS PRN tab 03/27/19 05/09/19 Rx Allergies Allergy/AdvReac Type Severity Reaction Status Date / Time etanercept [From Enbrel] Allergy Rash/Hives Verified 05/09/19 19:14 latex Allergy Itching Verified 05/09/19 19:14 Sulfa (Sulfonamide Allergy Rash/Hives Verified 05/09/19 19:14 Antibiotics) tape Allergy Rash/Hives Uncoded 05/09/19 17:16 Physical Exam Vitals: Vital Signs Temp Pulse Pulse Resp BP BP Pulse Ox 05/10/19 11:33 97.9 F 66 18 138/61 95 05/10/19 04:20 97.0 F L 72 16 119/58 95 05/10/19 00:48 93 153/76 05/10/19 00:07 101 H 160/75 05/09/19 22:36 155/73 05/09/19 22:23 97.8 F 96 16 176/89 99 05/09/19 21:38 98.2 F 88 18 155/68 98 05/09/19 18:57 77 19 127/56 99 05/09/19 17:18 98.1 F 75 18 152/73 98 Intake and Output 05/09/19 05/10/19 05/10/19 22:59 06:59 14:59 Intake Total 104.924 67.322 Balance 104.924 67.322 Intake: Intake, IV Titration 104.924 67.322 Amount Heparin Sod,Pork in 0.45% 104.924 67.322 NaCl 25,000 unit In 0.45 % NaCl 1 250ml.bag @ 18 UNITS/KG/HR 14.778 mls/hr IV .[id number] [facility] Rx#: [id number] Other: Voiding Method Toilet Toilet # Voids 1 Weight 82.1 kg Results 05/09/19 18:35 Coagulation 05/09/19 05/10/19 05/10/19 Range/Units 18:35 01:00 07:52 PT 9.8 (9.0-12.0) sec APTT 22.4 >200.0 H* 152.1 H* (22.0-30.0) sec Comprehensive Metabolic Panel 05/09/19 Range/Units 18:35 Sodium 138 (137-145) mmol/L Potassium 4.2 (3.5-5.1) mmol/L Chloride 106 (98-107) mmol/L Carbon Dioxide 21 L (22-30) mmol/L BUN 27 H (7-17) mg/dL Creatinine 0.77 (0.52-1.04) mg/dL Glucose 117 H (74-99) mg/dL Calcium 9.6 (8.4-10.2) mg/dL Current Medications Generic Name Dose Route Start Last Admin Trade Name Freq PRN Reason Stop Dose Admin Hydrocodone Bitart/Acetaminophen 1 each 05/09/19 23:53 05/10/19 09:23 Vesper 10 PO 1 each TID PRN Administration Pain Buspirone HCl 5 mg 05/09/19 21:00 05/10/19 09:19 Buspar PO 5 mg BID RUKHSANA Administration Calamine/Pramoxine 1 applic 05/09/19 19:30 Caladryl TOPICAL TID PRN Skin Irritation Cevimeline HCl 30 mg 05/09/19 21:00 05/10/19 09:19 Evoxac PO 30 mg BID RUKHSANA Administration Clopidogrel Bisulfate 75 mg 05/10/19 09:00 05/10/19 09:18 Plavix PO 75 mg DAILY RUKHSANA Administration Cyclobenzaprine HCl 10 mg 05/09/19 19:30 05/10/19 09:24 Flexeril PO 10 mg TID PRN Administration Muscle Spasm Doxazosin Mesylate 1 mg 05/09/19 21:00 05/10/19 00:49 Cardura PO 1 mg HS RUKHSANA Administration Heparin Sodium (Porcine) 0 unit 05/09/19 17:43 Heparin IV PER PROTOCOL PRN Low PTT Protocol Heparin Sodium/Sodium Chloride 250 mls @ 14.778 mls/hr 05/09/19 17:45 05/10/19 09:52 25,000 unit/ Sodium Chloride IV 12 units/kg/hr .[id number] RUKHSANA 9.852 mls/hr Titration Protocol 18 UNITS/KG/HR Insulin Aspart 0 unit 05/10/19 07:30 05/10/19 12:19 Novolog SQ 3 unit ACHS RUKHSANA Administration Protocol Insulin Detemir 10 unit 05/09/19 21:00 05/09/19 22:51 Levemir SQ 10 unit HS RUKHSANA Administration Loratadine 10 mg 05/09/19 19:30 Claritin PO DAILY PRN Allergy Symptoms Memantine 10 mg 05/10/19 09:00 05/10/19 09:19 Namenda PO 10 mg DAILY RUKHSANA Administration Metoprolol Tartrate 50 mg 05/09/19 21:00 05/10/19 09:18 Lopressor PO 50 mg BID RUKHSANA Administration Naloxone HCl 0.2 mg 05/09/19 20:59 Narcan IV Q2M PRN Opioid Reversal Nitroglycerin 0.4 mg 05/09/19 19:30 05/09/19 22:32 Nitrostat SUBLINGUAL 0.4 mg Q5M PRN Administration Chest Pain Non-Formulary Medication 5 mg 05/09/19 21:00 05/10/19 09:19 Tofacitinib Citrate [Xeljanz] PO Not Given BID [facility] Pantoprazole Sodium 40 mg 05/10/19 07:30 05/10/19 09:18 Protonix PO 40 mg AC-BRKFST RUKHSANA Administration Ropinirole HCl 0.25 mg 05/09/19 21:00 05/09/19 22:52 Requip PO 0.25 mg HS RUKHSANA Administration Valacyclovir HCl 500 mg 05/10/19 09:00 05/10/19 09:19 Valtrex PO 500 mg DAILY RUKHSANA Administration Zolpidem Tartrate 5 mg 05/09/19 19:30 05/10/19 00:11 Ambien PO 5 mg HS PRN Administration Insomnia Intake and Output 05/09/19 05/10/19 05/10/19 22:59 06:59 14:59 Intake Total 104.924 67.322 Balance 104.924 67.322 Intake: Intake, IV Titration 104.924 67.322 Amount Heparin Sod,Pork in 0.45% 104.924 67.322 NaCl 25,000 unit In 0.45 % NaCl 1 250ml.bag @ 18 UNITS/KG/HR 14.778 mls/hr IV .[id number] [facility] Rx#: [id number] Other: Voiding Method Toilet Toilet # Voids 1 Weight 82.1 kg 05/09/19 18:35 <Edwin Ferraro - Last Filed: 05/10/19 21:28> History of Present Illness History of present illness: Patient presented with lower extremity edema and was found to have femoral/popliteal DVT despite normal anticoagulants plus aspirin She had complained of chest discomfort upon admission but a CT scan did not show any evidence for pulmonary embolism Troponin normal Hematology Evaluation Consideration for IVC filter placement Hold off on stress testing for now Physical Exam Vitals: Vital Signs Temp Pulse Pulse Resp BP BP Pulse Ox 05/10/19 21:00 97.8 F 81 16 164/79 99 05/10/19 11:33 97.9 F 66 18 138/61 95 05/10/19 04:20 97.0 F L 72 16 119/58 95 05/10/19 00:48 93 153/76 05/10/19 00:07 101 H 160/75 05/09/19 22:36 155/73 05/09/19 22:23 97.8 F 96 16 176/89 99 05/09/19 21:38 98.2 F 88 18 155/68 98 Intake and Output 05/10/19 05/10/19 05/10/19 06:59 14:59 22:59 Intake Total 104.924 67.322 72.549 Balance 104.924 67.322 72.549 Intake: Intake, IV Titration 104.924 67.322 72.549 Amount Heparin Sod,Pork in 0.45% 104.924 67.322 72.549 NaCl 25,000 unit In 0.45 % NaCl 1 250ml.bag @ 18 UNITS/KG/HR 14.778 mls/hr IV .[id number] [facility] Rx#: [id number] Other: Voiding Method Toilet Toilet # Voids 1 2 1 # Bowel Movements 1 Results 05/09/19 18:35 Cardiac Enzymes 05/10/19 Range/Units 14:44 Troponin I 0.029 (0.000-0.034) ng/mL Coagulation 05/10/19 05/10/19 05/10/19 Range/Units 01:00 07:52 16:00 APTT >200.0 H* 152.1 H* 44.3 H (22.0-30.0) sec Current Medications Generic Name Dose Route Start Last Admin Trade Name Freq PRN Reason Stop Dose Admin Hydrocodone Bitart/Acetaminophen 1 each 05/09/19 23:53 05/10/19 18:05 Vesper 10 PO 1 each TID PRN Administration Pain Buspirone HCl 5 mg 05/09/19 21:00 05/10/19 20:31 Buspar PO 5 mg BID RUKHSANA Administration Calamine/Pramoxine 1 applic 05/09/19 19:30 Caladryl TOPICAL TID PRN Skin Irritation Cevimeline HCl 30 mg 05/09/19 21:00 05/10/19 20:31 Evoxac PO 30 mg BID RUKHSANA Administration Clopidogrel Bisulfate 75 mg 05/10/19 09:00 05/10/19 09:18 Plavix PO 75 mg DAILY RUKHSANA Administration Cyclobenzaprine HCl 10 mg 05/09/19 19:30 05/10/19 18:06 Flexeril PO 10 mg TID PRN Administration Muscle Spasm Doxazosin Mesylate 1 mg 05/09/19 21:00 05/10/19 20:31 Cardura PO 1 mg HS RUKHSANA Administration Heparin Sodium (Porcine) 0 unit 05/09/19 17:43 Heparin IV PER PROTOCOL PRN Low PTT Protocol Heparin Sodium/Sodium Chloride 250 mls @ 14.778 mls/hr 05/09/19 17:45 17:10 25,000 unit/ Sodium Chloride IV 14 units/kg/hr .[id number] RUKHSANA 11.494 mls/hr Administration Protocol 18 UNITS/KG/HR Insulin Aspart 0 unit 05/10/19 07:30 05/10/19 20:31 Novolog SQ 1 unit ACHS RUKHSANA Administration Protocol Loratadine 10 mg 05/09/19 19:30 Claritin PO DAILY PRN Allergy Symptoms Memantine 10 mg 05/10/19 09:00 05/10/19 09:19 Namenda PO 10 mg DAILY RUKHSANA Administration Metoprolol Tartrate 50 mg 05/09/19 21:00 05/10/19 20:32 Lopressor PO 50 mg BID RUKHSANA Administration Naloxone HCl 0.2 mg 05/09/19 20:59 Narcan IV Q2M PRN Opioid Reversal Nitroglycerin 0.4 mg 05/09/19 19:30 05/09/19 22:32 Nitrostat SUBLINGUAL 0.4 mg Q5M PRN Administration Chest Pain Non-Formulary Medication 5 mg 05/09/19 21:00 05/10/19 20:32 Tofacitinib Citrate [Xeljanz] PO Not Given BID [facility] Pantoprazole Sodium 40 mg 05/10/19 07:30 05/10/19 09:18 Protonix PO 40 mg AC-BRKFST RUKHSANA Administration Ropinirole HCl 0.25 mg 05/09/19 21:00 05/10/19 20:32 Requip PO 0.25 mg HS RUKHSANA Administration Valacyclovir HCl 500 mg 05/10/19 09:00 05/10/19 09:19 Valtrex PO 500 mg DAILY RUKHSANA Administration Zolpidem Tartrate 5 mg 05/09/19 19:30 05/10/19 00:11 Ambien PO 5 mg HS PRN Administration Insomnia Intake and Output 05/10/19 05/10/19 05/10/19 06:59 14:59 22:59 Intake Total 104.924 67.322 72.549 Balance 104.924 67.322 72.549 Intake: Intake, IV Titration 104.924 67.322 72.549 Amount Heparin Sod,Pork in 0.45% 104.924 67.322 72.549 NaCl 25,000 unit In 0.45 % NaCl 1 250ml.bag @ 18 UNITS/KG/HR 14.778 mls/hr IV .[id number] [facility] Rx#: [id number] Other: Voiding Method Toilet Toilet # Voids 1 2 1 # Bowel Movements 1 05/09/19 18:35
--- NOTE | 2019-05-10 13:08 | P.CONS ---
History of Present Illness - Reason for Consult Consult date: 05/10/19 DVT, on anticoagulation - History of Present Illness The patient is a 78-year-old white female with multiple medical problems. The patient had been seen in the cuff knitter's office on the day of admission and had complained of some chest discomfort which was relieved with nitroglycerin. She is also complaining of some swelling in both lower extremities with pain that is more marked in the right groin and right thigh. She was subsequently seen by her PCP and sent in for an ultrasound, which revealed a DVT in the left femoral vein extending to the popliteal vein. She was therefore admitted for further management, and started on IV heparin. Interestingly the patient is already on eliquis or atrial fibrillation, prescribed by cardiology. She states that she has been on this for some months at least. On my questioning, the patient was very definite that she had not missed any doses. The patient has a long-standing history of rheumatoid arthritis for more than 25 years, and is on Xeljanz. The admitting history and physical notes that she is also on prednisone 10 mg per day. However the patient states that this was just started. She had not been on chronic steroids a long time, other than a Me drol Dosepak within the last few weeks. She states that she had had a blood clot in the right lower extremity, in the calf about 20 years ago after traveling to and from [place]. She does not re member how this was treated. There is no history of miscarriages, or family history of clotting disorders The patient does have some memory issues. Review of Systems Constitutional: Reports fatigue Eyes: denies blurred vision, denies pain Ears: deny: decreased hearing, ear discharge, earache, tinnitus Ears, nose, mouth and throat: Reports as per HPI (dry mouth) Cardiovascular: Reports chest pain, Reports irregular heart beat Respiratory: Reports dyspnea (mild) Gastrointestinal: Denies abdominal pain, Denies diarrhea, Denies nausea, Denies vomiting Genitourinary: Reports urinary frequency Menstruation: Reports postmenopausal Musculoskeletal: Reports as per HPI, Reports hot joints (not currently active), Reports muscle weakness Integumentary: Denies pruritus, Denies rash Neurological: Reports memory loss, Denies numbness, Denies weakness Psychiatric: Reports memory loss Endocrine: Reports fatigue Hematologic/Lymphatic: Reports as per HPI, Reports thrombophilia Past Medical History Past Medical History: Coronary Artery Disease (CAD), Chest Pain / Angina, CVA/TIA, Diabetes Mellitus, Deep Vein Thrombosis (DVT), Eye Disorder, Fibromyalgia, Hyperlipidemia, Hypertension, Myocardial Infarction (IA), Osteoarthritis (OA), Rheumatoid Arthritis (RA) Additional Past Medical History / Comment(s): "Leaky" heart valve, NIDDM type II, neuropathy R hand and feet, DVT R calf, chronic pain, chronic back pain, DDD, anemia, hiatal hernia, hemorrhoids, IBS, diverticulosis, constipation, sinus problems, falls, skin cancer with removal, shingelle "break outs" Last Myocardial Infarction Date:: 2018 History of Any Multi-Drug Resistant Organisms: None Reported Past Surgical History: Appendectomy, Cholecystectomy, Heart Catheterization, Heart Catheterization With Stent, Hernia Repair, Hysterectomy, Tonsillectomy Additional Past Surgical History / Comment(s): PCI with multiple stents(6-7), ventral hernia repair, colonoscopy, bilateral cataract removals, skin cancer removals. Past Anesthesia/Blood Transfusion Reactions: No Reported Reaction Date of Last Stent Placement:: 2017 Past Psychological History: Depression Smoking Status: Former smoker Past Alcohol Use History: None Reported Additional Past Alcohol Use History / Comment(s): Pt started smoking in 1960 and quit in 1980. Past Drug Use History: None Reported - Past Family History Father Additional Family Medical History / Comment(s): pt stated had heart issues, but not sure what Mother Additional Family Medical History / Comment(s): leaking valve Medications and Allergies Home Medications Medication Instructions Recorded Confirmed Type Atorvastatin [Lipitor] 80 mg PO HS 04/29/14 05/09/19 History Cevimeline [Evoxac] 30 mg PO BID 04/29/14 05/09/19 History Gabapentin [Neurontin] 600 mg PO DIRECTED 04/29/14 05/09/19 History Omeprazole [PriLOSEC] 40 mg PO DAILY 12/01/17 05/09/19 History Tofacitinib Citrate [Xeljanz] 5 mg PO BID 12/01/17 05/09/19 History valACYclovir [Valtrex] 500 mg PO DAILY 12/01/17 05/09/19 History Clopidogrel [Plavix] 75 mg PO DAILY tab 01/11/18 05/09/19 Rx Nitroglycerin Sl Tabs [Nitrostat] 0.4 mg SUBLINGUAL Q5M PRN tab 01/11/18 05/09/19 Rx Cyclobenzaprine [Flexeril] 10 mg PO TID PRN 07/18/18 05/09/19 History Insulin Aspart (Niacinamide) See Protocol SQ ACHS PRN 07/18/18 05/09/19 History [Fiasp 100 Unit/ml Flextouch] Insulin Glargine,Hum.rec.anlog 10 unit SQ HS 07/18/18 05/09/19 History [Lantus Solostar] busPIRone HCl [Buspar] 5 mg PO BID 07/18/18 05/09/19 History rOPINIRole HCL [Requip] 0.25 mg PO HS 07/18/18 05/09/19 History Loratadine [Claritin] 10 mg PO DAILY PRN 02/01/19 05/09/19 History Hydrocodone/Acetaminophen [[place] 1 tab PO TID PRN 03/25/19 05/09/19 History 10-325] Memantine [Namenda] 10 mg PO DAILY 03/25/19 05/09/19 History Terazosin [Hytrin] 1 mg PO HS 03/25/19 05/09/19 History Apixaban [Eliquis] 5 mg PO BID tab 03/27/19 05/09/19 Rx Metoprolol Tartrate [Lopressor] 50 mg PO BID #60 tab 03/27/19 05/09/19 Rx Pramox-Calamine 1-8% Lotion 1 applic TOPICAL TID PRN lotion 03/27/19 05/09/19 Rx [Caladryl] Zolpidem [Ambien] 5 mg PO HS PRN tab 03/27/19 05/09/19 Rx Allergies Allergy/AdvReac Type Severity Reaction Status Date / Time etanercept [From Enbrel] Allergy Rash/Hives Verified 05/09/19 19:14 latex Allergy Itching Verified 05/09/19 19:14 Sulfa (Sulfonamide Allergy Rash/Hives Verified 05/09/19 19:14 Antibiotics) tape Allergy Rash/Hives Uncoded 05/09/19 17:16 Physical Exam Vitals: Vital Signs Temp Pulse Pulse Resp BP BP Pulse Ox 05/10/19 11:33 97.9 F 66 18 138/61 95 05/10/19 04:20 97.0 F L 72 16 119/58 95 05/10/19 00:48 93 153/76 05/10/19 00:07 101 H 160/75 05/09/19 22:36 155/73 05/09/19 22:23 97.8 F 96 16 176/89 99 05/09/19 21:38 98.2 F 88 18 155/68 98 05/09/19 18:57 77 19 127/56 99 05/09/19 17:18 98.1 F 75 18 152/73 98 Intake and Output 05/09/19 05/10/19 05/10/19 22:59 06:59 14:59 Intake Total 104.924 67.322 Balance 104.924 67.322 Intake: Intake, IV Titration 104.924 67.322 Amount Heparin Sod,Pork in 0.45% 104.924 67.322 NaCl 25,000 unit In 0.45 % NaCl 1 250ml.bag @ 18 UNITS/KG/HR 14.778 mls/hr IV .[id number] [facility] Rx#: [id number] Other: Voiding Method Toilet Toilet # Voids 1 Weight 82.1 kg - Constitutional General appearance: no acute distress - EENT Eyes: EOMI, PERRLA ENT: hearing grossly normal, normal oropharynx - Neck Neck: no lymphadenopathy Thyroid: bilateral: normal size - Respiratory Respiratory: bilateral: CTA - Cardiovascular Rhythm: regular Heart sounds: normal: S1, S2 - Gastrointestinal General gastrointestinal: normal bowel sounds, soft - Integumentary Integumentary: normal - Neurologic Neurologic: CNII-XII intact - Musculoskeletal 1+ right lower extremity edema pretibial - Psychiatric Psychiatric: A&O x's 3, appropriate affect Results CBC & Chem 7: 05/09/19 18:35 Labs: Abnormal Lab Results - Last 24 Hours (Table) 05/09/19 05/09/19 05/10/19 Range/Units 18:35 22:49 01:00 APTT >200.0 H* (22.0-30.0) sec Carbon Dioxide 21 L (22-30) mmol/L BUN 27 H (7-17) mg/dL Glucose 117 H (74-99) mg/dL POC Glucose (mg/dL) 191 H (75-99) mg/dL 1005/10/19 05/10/19 Range/Units 07:48 07:52 11:00 APTT 152.1 H* (22.0-30.0) sec Carbon Dioxide (22-30) mmol/L BUN (7-17) mg/dL Glucose (74-99) mg/dL POC Glucose (mg/dL) 103 H 231 H (75-99) mg/dL Comments: pelvis x-ray report reviewed Chest x-ray: report reviewed Venous US: report reviewed Assessment and Plan (1) DVT (deep venous thrombosis) Narrative/Plan: The patient is being seen for a diagnosis of left lower extremity proximal DVT, while on anticoagulation. This is her second episode, the first one being many years ago, in the calf and occurring after traveling. No details could be recorded by the patient about that event. There is no other personal or family history suggestive of a clotting disorder The patient's recall is diminished and it is possible that she may not have been compliant with the eliquis. However on repeated questioning, she was very definite that she had not missed any doses. Therefore, at this time, and this would have to be resumed as possible failure of eliquis. The patient has been placed on IV heparin, which is very appropriate at this time. Continue IV heparin for now, till further recommendations can be finalized - The patient does have underlying risk factors, including chronic inflammation from her rheumatoid arthritis for more than 25 years. In addition Xeljanz is also associated with increased risk of venous thrombus embolism. - As obvious provoking factors are present, and there is no family history, full hypercoagulable workup is not required. Given her history of autoimmune disease, and we will however check for antiphospholipid antibodies. - I will also check a CTA for baseline, to check for a concurrent PE as the patient did report some chest pain and mild shortness of breath - case discussed with the shell machine operator Current Visit: Yes Status: Acute Code(s): I82.409 - ACUTE EMBOLISM AND THOMBOS UNSP DEEP VN UNSP LOWER EXTREMITY SNOMED Code(s): 557502193 Plan: Therefore to the admitting service and other consultants for management of her other medical problems
--- NOTE | 2019-05-10 14:25 | P.CON ---
Consult Note - . Consult date: 05/10/19 Assessment/Plan:: Progress note date of service 05/10/2019. Patient was a positive DVT left femoral vein extending to the popliteal. Patient placed on IV heparin. Patient with history of stenting of the heart she is on Plavix which she is continued. Patient was not on aspirin will not start aspirin to avoid the risk of bleeding. I did this for close Dr. Ferraro today personally on the phone and I did discuss with him that ALLERGY to Lipitor in the past and the patient complaining of itching and flushing we held the Lipitor but she has no other ALLERGY to other statins, we held also the Neurontin and will see in the future if the future statin. Any itching or flushing. Patient stated that she is religiously taking Eliquis anticoagulant twice a day, and currently developed a DVT of the left lower extremity in the femoral vein with extension to popliteal and distillation operator helper on the examination today, she had bilateal ankle edema, with the bedrest currently on these exam was completely resolved but still have the tenderness on the medial left thigh with a crossing to the popliteal vein. I did do read the consultation was Dr. Montes hematology oncology. I felt the patient has failure of eliquis for preventing the PE or DVT, patient on heparin IV, Plavix. Patient vital signs stable temperature 97.9 orally F pulse 66 regular sinus, respiratory rate 18, blood pressure 138/61 with the pulse ox 95%. Laboratory her pro time and INR has been monitored and her pro time went up more than 200 and then subsequently down to 152.1 and down which is according to the protocol for heparin for DVT her blood sugars 31 after lunch however she is on insulin long-acting and short acting as well. Further adjustment will be made Dr. Montes did order CT of the lung to rule out any PEs as well. On the clinical exam: HEENT was negative Head was normocephalic and atraumatic. Oropharynx is normal. Chest was clear to auscultation and percussion no wheezes no rhonchi's. The heart regular sinus rhythm no evidence of atrial fibrillation. Abdomen soft positive bowel sounds no organ enlargement. Extremities currently no edema but she has tenderness on the left femoral vein crossing to the popliteal. Neurologically stable generally no CVA. Assessment: Left femoral vein DVT with extension to the popliteal. With the proposed failure of Eliquis to prevent DVT. 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 Coronary artery disease atherosclerotic heart disease with history of stent treated with Plavix. Rheumatoid arthritis treated by Dr. Susan Hayes mechanical artist. Chronic pain syndrome treated by Dr. Lemons and the PAs. For management of the pain control. Fibromyalgia. History of itching and flushing associated with Lipitor, has been held. Possible association with Neurontin for given neuropathy and complication of colton betes mellitus currently stopped. Hyperlipidemia. Lost night she had symptoms of jaw pain and the neck pain with a history of angina in the past we'll be obtaining troponin, patient had EKG was negative in the ER lost night. Underlying autoimmune diseae . Continue the heparin therapy IV. Further evaluation regarding of statin ALLERGY, and eliquis failure. Obtaining laboratory in a.m. I spoke with Dr. Jasmine brito guarding of the case personally .
--- NOTE | 2019-05-10 15:29 | CT ---
EXAMINATION TYPE: CT angio chest DATE OF EXAM: 05/10/2019 2:24 PM COMPARISON: 02/01/2019 HISTORY: Cough. PE. CT DLP: 456.1 mGycm Automated exposure control for dose reduction was used. CONTRAST: CTA scan of the thorax is performed with IV Contrast, patient injected with 66ml mL of Isovue 370, pu lmonary embolism protocol. . There are 3-D post processed images. FINDINGS: There is subpleural interstitial density at the posterior lung bases. There is no pleural effusion. T here is mild hiatal hernia. Heart size is normal. There is no pericardial effusion. There are no mony r masses. There is no mediastinal adenopathy. There are a few mediastinal lymph nodes that measure le ss than 1 cm. Thoracic aorta shows no aneurysm or dissection. There is normal contrast opacification of the pulmonary arteries. There are no filling defects. There is hypertrophic spurring in the thoracic spine. There is no compression fracture. The ribs appear in tact. IMPRESSION: NO EVIDENCE OF PULMONARY EMBOLISM. MILD PULMONARY INTERSTITIAL FIBROTIC CHANGES. HIATAL HERNIA. HEART AND LUNGS UNCHANGED COMPARED TO OLD EXAM.
[2019-05-10] MEDS ORDERED: HEPARIN SODIUM,PORCINE 5,000 UNIT/ML 1 ML VIAL IV STA (16:45)
[2019-05-10] MEDS: HEPARIN SOD,PORK IN 0.45% NACL 25,000 UNIT in 0.45% NACL 1 250ML.BAG IV SCH (17:10)
[2019-05-10 17:15] LABS: Glucose,Whole Blood 211 mg/dL (75-99)
[2019-05-10 20:04] LABS: Glucose,Whole Blood 142 mg/dL (75-99)
[2019-05-11 05:54] LABS: Basophils % (A) 0 %; Eosinophils # (A) 0.1 k/uL (0-0.7); Eosinophils % (A) 2 %; HCT 30.6 % (34.0-46.0); HGB 9.8 gm/dL (11.4-16.0); Lymphocytes # (A) 1.8 k/uL (1.0-4.8); Lymphocytes % (A) 35 %; MCH 28.7 pg (25.0-35.0); MCHC 31.9 g/dL (31.0-37.0); MCV 89.9 fL (80.0-100.0); Mean Platelet Volume 8.4; Monocytes # (A) 0.5 k/uL (0-1.0); Monocytes % (A) 9 %; Neutrophils # (A) 2.8 k/uL (1.3-7.7); Neutrophils % (A) 52 %; Platelet Count 175 k/uL (150-450); RDW 15.1 % (11.5-15.5); WBC 5.3 k/uL (3.8-10.6)
[2019-05-11 06:43] LABS: Erythrocyte Sedimentation Rate 17 mm/hr (0-20)
[2019-05-11 06:59] LABS: ALT 19 U/L (9-52); AST 19 U/L (14-36); African American GFR (CKD) >90 (>60 ml/min/1.73 sqM); Albumin 3.6 g/dL (3.5-5.0); Alkaline Phosphatase 58 U/L (38-126); Anion Gap 7 mmol/L; Blood Urea Nitrogen 14 mg/dL (7-17); Calcium 8.9 mg/dL (8.4-10.2); Carbon Dioxide 24 mmol/L (22-30); Chloride 111 mmol/L (98-107); Cholesterol 143 mg/dL (<200); Glucose 113 mg/dL (74-99); HDL Cholesterol 50 mg/dL (40-60); LDL Cholesterol,Calculated 61 mg/dL (0-99); Potassium 4.1 mmol/L (3.5-5.1); Sodium 142 mmol/L (137-145); Total Bilirubin 0.3 mg/dL (0.2-1.3); Total Protein 6.3 g/dL (6.3-8.2); Triglycerides 161 mg/dL (<150)
[2019-05-11 07:22] LABS: Glucose,Whole Blood 109 mg/dL (75-99)
[2019-05-11] MEDS: INSULIN ASPART (NovoLOG) 100 UNIT/ML VIAL SQ SCH ×4 (07:33→20:51)
[2019-05-11] MEDS: CYCLOBENZAPRINE 10 MG TAB PO PRN ×3 (08:50→20:58)
[2019-05-11] MEDS: PANTOPRAZOLE 40 MG TABLET PO SCH (08:50)
[2019-05-11] MEDS: CLOPIDOGREL 75 MG TAB PO SCH (08:50)
[2019-05-11] MEDS: METOPROLOL TARTRATE 50 MG TAB PO SCH ×2 (08:50→20:50)
[2019-05-11] MEDS: MEMANTINE 10 MG TAB PO SCH (08:51)
[2019-05-11] MEDS: HYDROcodone/APAP 10-325MG 1 EACH TAB PO PRN ×3 (08:51→20:58)
[2019-05-11] MEDS: busPIRone HCl 5 MG TAB PO SCH ×2 (08:52→20:49)
[2019-05-11] MEDS: CEVIMELINE 30 MG CAP PO SCH ×2 (08:52→20:50)
[2019-05-11] MEDS: valACYclovir 500 MG TAB PO SCH (08:53)
[2019-05-11] MEDS: TOFACITINIB CITRATE 5 MG PO SCH ×2 (08:53→20:52)
[2019-05-11 11:30] LABS: Glucose,Whole Blood 126 mg/dL (75-99)
--- NOTE | 2019-05-11 13:53 | P.PN ---
Subjective Progress Note Date: 05/11/19 the patient is a 78-year-old female with past medical history of new onset paroxysmal atrial fibrillation, diabetes mellitus, hypertension, hyperlipidemia, coronary artery disease status post stenting of the RCA and LAD, iron deficiency edema, and ischemic cardiomyopathy, who follows with Dr. Ferraro in the office.she was sent to the hospital by her primary care provider after she was found to have a left femoral and left popliteal DVT on recent venous ultrasound. She states while she was in the emergency room she also had developed some chest discomfort which was relieved with nitroglycerin. EKG shows sinus mechanism without acute ST or T-wave changes.recent echocardiogram in March 2019 shows LV function of 45-50% with basal inferior and mid inferior hypokinesis, mild aortic sclerosis, mild aortic regurgitation, and mild to moderate mitral regurgitation. sodium 138, potassium 4.2, chloride 106, BUN 27, and creatinine 0.77. 05/10/19 on exam this morning she is currently sitting comfortably at the side of her bed. She states she does continue to have some discomfort in her lower extre mities, which is worse on the right. She denies any recurrence of her chest discomfort since her initial episode in the emergency room. CT of the chest negative for pulmonary emboli. 05/11/19 Patient states her lower extremity discomfort is improving. She denies any chest pain, chest pressure, palpitations, dizziness, or lightheadedness. She continues to be on heparin drip. Laboratory data shows WBC of 5.3, hemoglobin 9.8, hematocrit 30.6, platelet 175, sodium 142, potassium 4.1, BUN 14, c reatinine 0.72, LDL 61, triglycerides 161. Objective - Vital Signs Vital signs: Vital Signs Temp 98.0 F 05/11/19 04:57 Pulse 75 05/11/19 04:57 Resp 16 05/11/19 04:57 BP 144/78 05/11/19 04:57 Pulse Ox 95 05/11/19 04:57 Intake & Output 05/10/19 05/11/19 05/11/19 18:59 06:59 18:59 Intake Total 139.871 664.519 Balance 139.871 664.519 Intake: Intake, IV Titration 139.871 74.519 Amount Heparin Sod,Pork in 0.45% 139.871 74.519 NaCl 25,000 unit In 0.45 % NaCl 1 250ml.bag @ 18 UNITS/KG/HR 14.778 mls/hr IV .[id number] [facility] Rx#: [id number] Oral 590 Other: Voiding Method Toilet Toilet # Voids 2 1 2 # Bowel Movements 1 - Exam GENERAL: Well-appearing, well-nourished and in no acute distress. NECK: Supple without JVD or thyromegaly. LUNGS: Breath sounds clear to auscultation bilaterally. Respiration equal and unlabored. No wheezes, rales or rhonchi. HEART: Regular rate and rhythm.soft systolic murmur. no rubs or gallops. S1 and S2 heard. EXTREMITIES: Normal range of motion, no edema. No clubbing or cyanosis. Peripheral pulses intact and strong. - Labs CBC & Chem 7: 05/11/19 05:35 05/11/19 05:35 Labs: Abnormal Lab Results - Last 24 Hours (Table) 05/10/19 05/10/19 05/10/19 Range/Units 16:00 17:13 20:03 RBC (3.80-5.40) m/uL Hgb (11.4-16.0) gm/dL Hct (34.0-46.0) % APTT 44.3 H (22.0-30.0) sec Chloride (98-107) mmol/L Glucose (74-99) mg/dL POC Glucose (mg/dL) 211 H 142 H (75-99) mg/dL Triglycerides (<150) mg/dL 05/10/19 05/11/19 05/11/19 Range/Units 22:33 05:35 05:35 RBC 3.40 L (3.80-5.40) m/uL Hgb 9.8 L (11.4-16.0) gm/dL Hct 30.6 L (34.0-46.0) % APTT 112.3 H* (22.0-30.0) sec Chloride 111 H (98-107) mmol/L Glucose 113 H (74-99) mg/dL POC Glucose (mg/dL) (75-99) mg/dL Triglycerides 161 H (<150) mg/dL 05/11/19 05/11/19 05/11/19 Range/Units 05:35 07:13 11:29 RBC (3.80-5.40) m/uL Hgb (11.4-16.0) gm/dL Hct (34.0-46.0) % APTT 51.2 H (22.0-30.0) sec Chloride (98-107) mmol/L Glucose (74-99) mg/dL POC Glucose (mg/dL) 109 H 126 H (75-99) mg/dL Triglycerides (<150) mg/dL Assessment and Plan Assessment: #1 acute DVT, left femoral and left popliteal, on novel anticoagulation #2 CAD #3 hypertension, controlled #4 dyslipidemia #5 ischemic cardiomyopathy, recent LV function 45-50% #6 mitral regurgitation #7 paroxysmal atrial fibrillation, on Eliquis Plan: Further recommendations regarding anticoagulation per hematology. Patient states she did not miss any doses of her Eliquis, although her APTT was not mildly elevated on initial blood work. Increase lisinopril to 5 mg daily for hypertension.
--- NOTE | 2019-05-11 13:56 | P.PN ---
Subjective Progress Note Date: 05/11/19 (Failure of Eliquis, DVT) Progress note date of service 05/11/2019. Patient seen and evaluated. The admission diagnosis: Left femoral vein thrombosis with extension to the popliteal, #2 failure of Eliquis anticoagulant to prevent DVT with a history of the secondary current. #3 rheumatoid arthritis, osteoarthritis, #4 autoimmune disease, sjogrn's syndrome. #5 fibromyalgia. #6 history of atrial fibrillation currently normal sinus rhythm . #7 diabetes mellitus type 2. Insulin-dependent. #8 hypertension with hypertensive heart disease. #9 coronary artery disease atherosclerotic heart disease, previous stenting 5. #10 history of impairment of left ventricular function with the ischemic cardiomyopathy. #11 no history of current congestive heart failure, normal also troponin. In spite that she had left jaw pain. With normal EKG sinus rhythm. #12 history of asthma not reactive at this time This patient seen and evaluated today she is conscious alert oriented 3 Her vital sign indicating temperature 98.0 F oral and pulse rate 75 regular permanent respiratory rate 16 and blood pressure 144/78. Laboratory WBC 5.3 with hemoglobin dropped to 9.8 with a hematocrit 30.6. She is on anticoagulation with heparin unfractionated IV with the held with holding eliquis space due to failure uncontrolled Dr. Montes hematology oncology able to advice with different protocol or we need to have green filter. Lipid profile was normal with the LDL 61, HDL 50, total 143, triglycerides 161. Stool for Hemoccult was negative and yesterday troponin was normal which was done because of the pain over the left jaw. And the EKG prior to that was negative normal sinus rhythm. HEENT negative neck was supple chest was clear to auscultation and percussion no wheezes no rhonchi's Heart was regular sinus rhythm, abdomen was soft positive bowel sounds, history of atrial fibrillation currently not present. Extremities edema has resolved. Still have the discomfort and tenderness on the left femoral vein crossing to the popliteal vein. PT and therapeutic on heparin There is CTA impression no evidence of pulmonary embolism. Pulmonary interstitial fibrotic changes. Changes for hiatal hernia. Heart and lung was negative. Assessment and plan #1 as mentioned above in the diagnosis #2 continue the current treatment. #3 waiting for cardiology for decision on the anticholesterol medication after we held the atorvastatin/Lipitor because of the ALLERGY and itching and flushing. #4 will be waiting also for Dr. Montes the hematology oncology for his advice and instruction with the underlying DVT. And the failure of eliquis, and the underlying use of green filter if needed, and at this time we'll be consulting Dr. Kelby Macario vascular surgeon if this is the recommendation from Dr. Montes. Objective - Vital Signs Vital signs: Vital Signs Temp 98.0 F 05/11/19 04:57 Pulse 75 05/11/19 04:57 Resp 16 05/11/19 04:57 BP 144/78 05/11/19 04:57 Pulse Ox 95 05/11/19 04:57 Intake & Output 05/10/19 05/11/19 05/11/19 18:59 06:59 18:59 Intake Total 139.871 664.519 Balance 139.871 664.519 Intake: Intake, IV Titration 139.871 74.519 Amount Heparin Sod,Pork in 0.45% 139.871 74.519 NaCl 25,000 unit In 0.45 % NaCl 1 250ml.bag @ 18 UNITS/KG/HR 14.778 mls/hr IV .[id number] [facility] Rx#: [id number] Oral 590 Other: Voiding Method Toilet Toilet # Voids 2 1 # Bowel Movements 1 - Labs CBC & Chem 7: 05/11/19 05:35 05/11/19 05:35 Labs: Abnormal Lab Results - Last 24 Hours (Table) 05/10/19 05/10/19 05/10/19 Range/Units 16:00 17:13 20:03 RBC (3.80-5.40) m/uL Hgb (11.4-16.0) gm/dL Hct (34.0-46.0) % APTT 44.3 H (22.0-30.0) sec Chloride (98-107) mmol/L Glucose (74-99) mg/dL POC Glucose (mg/dL) 211 H 142 H (75-99) mg/dL Triglycerides (<150) mg/dL 05/10/19 05/11/19 05/11/19 Range/Units 22:33 05:35 05:35 RBC 3.40 L (3.80-5.40) m/uL Hgb 9.8 L (11.4-16.0) gm/dL Hct 30.6 L (34.0-46.0) % APTT 112.3 H* (22.0-30.0) sec Chloride 111 H (98-107) mmol/L Glucose 113 H (74-99) mg/dL POC Glucose (mg/dL) (75-99) mg/dL Triglycerides 161 H (<150) mg/dL 05/11/19 05/11/19 05/11/19 Range/Units 05:35 07:13 11:29 RBC (3.80-5.40) m/uL Hgb (11.4-16.0) gm/dL Hct (34.0-46.0) % APTT 51.2 H (22.0-30.0) sec Chloride (98-107) mmol/L Glucose (74-99) mg/dL POC Glucose (mg/dL) 109 H 126 H (75-99) mg/dL Triglycerides (<150) mg/dL
[2019-05-11] MEDS: HEPARIN SOD,PORK IN 0.45% NACL 25,000 UNIT in 0.45% NACL 1 250ML.BAG IV SCH (16:20)
[2019-05-11 17:15] LABS: Glucose,Whole Blood 126 mg/dL (75-99)
[2019-05-11 19:52] LABS: Glucose,Whole Blood 175 mg/dL (75-99)
[2019-05-11] MEDS: DOXAZOSIN 1 MG TAB PO SCH (20:50)
[2019-05-11] MEDS: ZOLPIDEM 5 MG TAB PO PRN (23:00)
[2019-05-12] MEDS: HEPARIN SOD,PORK IN 0.45% NACL 25,000 UNIT in 0.45% NACL 1 250ML.BAG IV SCH ×2 (02:17→15:39)
[2019-05-12 07:12] LABS: Glucose,Whole Blood 104 mg/dL (75-99)
[2019-05-12] MEDS: CLOPIDOGREL 75 MG TAB PO SCH (08:30)
[2019-05-12] MEDS: valACYclovir 500 MG TAB PO SCH (08:30)
[2019-05-12] MEDS: INSULIN ASPART (NovoLOG) 100 UNIT/ML VIAL SQ SCH ×4 (08:30→21:20)
[2019-05-12] MEDS: MEMANTINE 10 MG TAB PO SCH (08:30)
[2019-05-12] MEDS: METOPROLOL TARTRATE 50 MG TAB PO SCH ×2 (08:30→21:20)
[2019-05-12] MEDS: TOFACITINIB CITRATE 5 MG PO SCH ×2 (08:30→21:19)
[2019-05-12] MEDS: CEVIMELINE 30 MG CAP PO SCH ×2 (08:30→21:20)
[2019-05-12] MEDS: busPIRone HCl 5 MG TAB PO SCH ×2 (08:30→21:19)
[2019-05-12] MEDS: PANTOPRAZOLE 40 MG TABLET PO SCH (08:30)
[2019-05-12] MEDS: LISINOPRIL 5 MG TAB PO SCH (08:30)
[2019-05-12] MEDS: HEPARIN SODIUM,PORCINE 5,000 UNIT/ML 1 ML VIAL IV PRN ×2 (08:32→22:59)
[2019-05-12] MEDS: CYCLOBENZAPRINE 10 MG TAB PO PRN ×2 (08:45→16:13)
[2019-05-12] MEDS: HYDROcodone/APAP 10-325MG 1 EACH TAB PO PRN ×2 (08:45→16:13)
[2019-05-12] MEDS ORDERED: LISINOPRIL 2.5 MG TAB PO SCH (09:00)
--- NOTE | 2019-05-12 09:09 | P.PN ---
Subjective Progress Note Date: 05/12/19 The patient is tolerating IV heparin well. She continues to have discomfort in the right hip and thigh region and persistent mild swelling of the right lower extremity. No fever/chills/nausea/vomiting/obvious bleeding Objective - Vital Signs Vital signs: Vital Signs Temp 97.8 F 05/11/19 20:51 Pulse 78 05/12/19 05:00 Resp 16 05/12/19 05:00 BP 146/72 05/12/19 05:00 Pulse Ox 95 05/12/19 05:00 Intake & Output 05/11/19 05/12/19 05/12/19 18:59 06:59 18:59 Intake Total 765.481 57.046 Balance 765.481 57.046 Intake: Intake, IV Titration 175.481 57.046 Amount Heparin Sod,Pork in 0.45% 175.481 57.046 NaCl 25,000 unit In 0.45 % NaCl 1 250ml.bag @ 18 UNITS/KG/HR 14.778 mls/hr IV .[id number] [facility] Rx#: [id number] Oral 590 Other: Voiding Method Toilet # Voids 2 2 - Constitutional General appearance: Present: no acute distress - EENT Eyes: Present: EOMI ENT: Present: hearing grossly normal, normal oropharynx - Respiratory Respiratory: bilateral: CTA - Cardiovascular Rhythm: irregularly irregular Heart sounds: normal: S1, S2 - Gastrointestinal General gastrointestinal: Present: normal bowel sounds, soft - Integumentary Integumentary: Present: normal - Neurologic Neurologic: Present: CNII-XII intact - Musculoskeletal Musculoskeletal Comment(s): Persistent right lower extremity 1+ edema pretibial, as well as calf tenderness Musculoskeletal: Present: strength equal bilaterally - Psychiatric Psychiatric: Present: A&O x's 3, appropriate affect - Labs CBC & Chem 7: 05/11/19 05:35 05/11/19 05:35 Labs: Abnormal Lab Results - Last 24 Hours (Table) 05/11/19 05/11/19 05/11/19 Range/Units 11:29 17:13 19:51 APTT (22.0-30.0) sec POC Glucose (mg/dL) 126 H 126 H 175 H (75-99) mg/dL 05/12/19 05/12/19 Range/Units 06:54 07:09 APTT 35.9 H (22.0-30.0) sec POC Glucose (mg/dL) 104 H (75-99) mg/dL Assessment and Plan (1) DVT (deep venous thrombosis) Narrative/Plan: The patient is tolerating IV heparin well. She continues to have pain in the right lower extremity along with swelling and calf tenderness. Therefore Dopp ler of the right lower extremity will be repeated. - Antiphospholipid antibody testing results are pending at this time - Nursing has been asked to have family bring over her Eliquis bottle to the [employer] [facility] to check your the patient has truly been taking it regularly. - If it is confirmed and the patient has been compliant, indicating that this is a failure of anticoagulation, then she will need a change of outpatient therapy. Awaiting results of APL antibody testing. If these are positive, she should be treated with warfarin. On the other hand, if it appears the patient was not compliant with her medication, she can be switched back to the same with compliance is reinforced. -The case was also discussed with rheumatology. Xeljanz may be associated with an increased risk of venous thromboembolism. Therefore the patient has other options, change of therapy could be considered. - At this time there is NO indication for the patient to have an IVC filter. She has several other anticoagulation options available for her. - If APL antibody testing is still not available, the patient could potentially be discharged on Lovenox and transitioned to her final regimen as an outpatient - CTA was negative. Current Visit: Yes Status: Acute Code(s): I82.409 - ACUTE EMBOLISM AND THOMBOS UNSP DEEP VN UNSP LOWER EXTREMITY SNOMED Code(s): 714120405 Plan: Defer to the admitting service and other consultants for management of other medical problems
[2019-05-12 11:24] LABS: Glucose,Whole Blood 213 mg/dL (75-99)
[2019-05-12 14:15] LABS: Cardiolipin Ab IgG Interp NEGATIVE (NEGATIVE); Cardiolipin Ab IgM Interp NEGATIVE (NEGATIVE); Cardiolipin IgA Antibody <0.5 U/mL; Cardiolipin IgM Antibody 0.2 U/mL
[2019-05-12 15:12] LABS: APTT 99 Sec(s) (<43); APTT 1:1 Mix 58 Sec(s) (<43); Dilute Russell Viper Venom 40 Sec(s) (<44); Hexagonal Phase Neutralization Negative (Negative)
--- NOTE | 2019-05-12 15:45 | US ---
EXAMINATION TYPE: US venous doppler duplex LE RT DATE OF EXAM: 05/12/2019 12:57 PM COMPARISON: NONE CLINICAL HISTORY: Pain, swelling. Right leg pain and swelling. SIDE PERFORMED: Right TECHNIQUE: The lower extremity deep venous system is examined utilizing real time linear array sonog lauren with graded compression, doppler sonography and color-flow sonography. VESSELS IMAGED: External Iliac Vein (EIV) Common Femoral Vein Deep Femoral Vein Greater Saphenous Vein * Femoral Vein Popliteal Vein Small Saphenous Vein * Proximal Calf Veins (* superficial vessels) There is normal flow, compressibility, vascular waveforms. Right Leg: Negative for DVT IMPRESSION: No evident deep venous thrombosis at or above the right knee.
--- NOTE | 2019-05-12 16:03 | PN ---
PROGRESS NOTE DATE OF SERVICE: 05/12/2019 FULL CODE. DATA: She is 5 feet 3 inches, weight 82.1 kg. BSA 1.85 m2. BMI 32.1 kg/m2. ALLERGIES: ETANERCEPT, LATEX, SULFA, SULFONAMIDE and TAPE. The patient was seen today, evaluated. Discussion with her, face to face. CURRENT VITAL SIGNS: Stable. Temperature 97.9 Fahrenheit orally, pulse 67 per minute, regular, respiratory rate 18 per minute, non-labored, blood pressure 117/59 with a mean blood pressure 78. Her oxygen is 99% on room air. She monitors her blood sugar. In the morning it was 104. However, when she eats lunch and breakfast it becomes elevated. The patient is on currently on insulin to scale as well as long-acting insulin Levemir. She was at home on Lantus and in the hospital on Levemir. Her current status is with the underlying left DVT of the femoral vein with extension to the popliteal vein. She is on heparin protocol. Dr. Montes of Hematology/Oncology saw her this morning. She also had right lower extremity discomfort suspicious for DVT and he repeated the venous duplex scan today. The official report is not available yet. Currently on examination she is conscious, alert, oriented x3. CTA of the chest was negative for PE. HEENT was negative. Neck was supple. No JVD. No thyromegaly. No lymphadenopathy. Trachea midline. The chest was clear to auscultation and percussion. No wheezes. No rhonchi. HEART: PMI in the fifth intercostal space. Regular sinus rhythm. No dysrhythmia. She has a history of paroxysmal atrial fibrillation and she was on Eliquis. Beside that she was on Plavix and she developed the DVT of the left lower extremity. Her abdomen is soft. Positive bowel sounds. EXTREMITIES: Currently no edema, but presence of both left leg and right leg discomfort, and she thought that there was some pain across the vein. Dr. Montes subsequently ordered the venous duplex study. Report is not available at this time. ASSESSMENT: 1. Failure of Eliquis for preventing deep venous thrombosis. She is also on Plavix with a previous history of stent. She stated 5 stents. 2. Currently also she is diabetic, on insulin to scale. 3. She is also on a beta faith. 4. She has a history of insomnia, restless legs syndrome. 5. History of underlying chronic use of for herpes simplex. She is on valacyclovir as well. I did review Dr. Montes's note today. He indicates that he will be checking more regarding her compliance versus noncompliance and he mentioned that if failure of Eliquis, the patient may be on Coumadin. We will be looking for his order in the future if we start the Coumadin or if we wait until he finishes his evaluation. The patient understands the current situation. I discussed it with her in detail. We will wait for Dr. Montes's decision on what anticoagulation will be, starting the oral medication for anticoagulation. At this time the patient is on the heparin protocol and she is comfortable with that at this time. Dr. Montes is also comfortable with the IV heparin. We will see in the next couple of days the results of his testing as well as further planning about continuing anticoagulation. In regards to the statin, we are waiting for Cardiology to name the different statins that they may like to use, as we have a history of ALLERGY TO LIPITOR in the past. She has no for further itching and no further flushing. With this finding, we will be waiting for Cardiology to determine which statin to consider for the hyperlipidemia. We did check her cholesterol and lipid panel, which has been very satisfactory. MMLAUREANOL / IJN: [id number] /
[2019-05-12 17:26] LABS: Glucose,Whole Blood 126 mg/dL (75-99)
[2019-05-12 20:22] LABS: Glucose,Whole Blood 156 mg/dL (75-99)
[2019-05-12] MEDS: DOXAZOSIN 1 MG TAB PO SCH (21:20)
[2019-05-12] MEDS: ZOLPIDEM 5 MG TAB PO PRN (23:05)
[2019-05-13] MEDS: HYDROcodone/APAP 10-325MG 1 EACH TAB PO PRN ×3 (00:22→17:23)
[2019-05-13] MEDS: HEPARIN SOD,PORK IN 0.45% NACL 25,000 UNIT in 0.45% NACL 1 250ML.BAG IV SCH (03:08)
[2019-05-13 07:09] LABS: Glucose,Whole Blood 108 mg/dL (75-99)
[2019-05-13] MEDS: INSULIN ASPART (NovoLOG) 100 UNIT/ML VIAL SQ SCH ×4 (08:30→20:13)
[2019-05-13] MEDS: PANTOPRAZOLE 40 MG TABLET PO SCH (08:39)
[2019-05-13] MEDS: busPIRone HCl 5 MG TAB PO SCH ×2 (08:39→21:12)
[2019-05-13] MEDS: CEVIMELINE 30 MG CAP PO SCH ×2 (08:40→21:13)
[2019-05-13] MEDS: CLOPIDOGREL 75 MG TAB PO SCH (08:40)
[2019-05-13] MEDS: METOPROLOL TARTRATE 50 MG TAB PO SCH ×2 (08:40→21:13)
[2019-05-13] MEDS: MEMANTINE 10 MG TAB PO SCH (08:40)
[2019-05-13] MEDS: TOFACITINIB CITRATE 5 MG PO SCH (08:40)
[2019-05-13] MEDS: LISINOPRIL 5 MG TAB PO SCH (08:40)
[2019-05-13] MEDS: valACYclovir 500 MG TAB PO SCH (08:43)
[2019-05-13] MEDS: CYCLOBENZAPRINE 10 MG TAB PO PRN ×2 (08:43→17:23)
--- NOTE | 2019-05-13 09:12 | P.PN ---
Subjective Progress Note Date: 05/13/19 The patient denies any new complaints. She continues to have some discomfort in the right lower extremity which is slightly better. She has had no new extremity swelling. No shortness of breath or recurrent chest pain. No obvious bleeding. Objective - Vital Signs Vital signs: Vital Signs Temp 98.2 F 05/13/19 05:00 Pulse 78 05/13/19 05:00 Resp 18 05/13/19 05:00 BP 126/78 05/13/19 05:00 Pulse Ox 96 05/13/19 05:00 Intake & Output 05/12/19 05/13/19 05/13/19 18:59 06:59 18:59 Intake Total 731.461 965.071 Balance 731.461 965.071 Intake: Intake, IV Titration 151.461 125.071 Amount Heparin Sod,Pork in 0.45% 151.461 125.071 NaCl 25,000 unit In 0.45 % NaCl 1 250ml.bag @ 18 UNITS/KG/HR 14.778 mls/hr IV .[id number] [facility] Rx#: [id number] Oral 580 840 Other: Voiding Method Toilet Toilet Toilet # Voids 3 3 # Bowel Movements 1 - Constitutional General appearance: Present: no acute distress - EENT Eyes: Present: EOMI ENT: Present: hearing grossly normal, normal oropharynx - Respiratory Respiratory: bilateral: CTA - Cardiovascular Rhythm: irregularly irregular Heart sounds: normal: S1, S2 - Gastrointestinal General gastrointestinal: Present: normal bowel sounds, soft - Integumentary Integumentary: Present: normal - Neurologic Neurologic: Present: CNII-XII intact - Musculoskeletal Musculoskeletal: Present: generalized weakness, strength equal bilaterally - Psychiatric Psychiatric: Present: A&O x's 3 - Labs CBC & Chem 7: 05/11/19 05:35 05/11/19 05:35 Labs: Abnormal Lab Results - Last 24 Hours (Table) 05/11/19 05/12/19 05/12/19 Range/Units 05:35 11:13 15:23 APTT 128.8 H* (22.0-30.0) sec Lupus Anticoag aPTT 99 H (<43) Sec(s) Lupus Anticoag PTT Mix 58 H (<43) Sec(s) POC Glucose (mg/dL) 213 H (75-99) mg/dL 05/12/19 05/12/19 05/12/19 Range/Units 17:24 20:21 21:58 APTT 38.5 H (22.0-30.0) sec Lupus Anticoag aPTT (<43) Sec(s) Lupus Anticoag PTT Mix (<43) Sec(s) POC Glucose (mg/dL) 126 H 156 H (75-99) mg/dL 05/13/19 05/13/19 Range/Units 04:24 07:08 APTT 154.2 H* (22.0-30.0) sec Lupus Anticoag aPTT (<43) Sec(s) Lupus Anticoag PTT Mix (<43) Sec(s) POC Glucose (mg/dL) 108 H (75-99) mg/dL Assessment and Plan (1) DVT (deep venous thrombosis) Narrative/Plan: The patient's labs showed to be negative for the antiphospholipid antibodies. She had Doppler of the right lower extremity done which was also negative. She is tolerating IV heparin well. - The patient's medications were obtained from home and it was confirmed that she had been taking her Eliquis. Thus this DVT does appear to represent failure of her prior anticoagulation. - The patient was therefore need to be switched to a different regimen. I discussed various options with her. She is obviously reluctant to take Lovenox because of the inconvenience of giving herself injections daily. She would much prefer an oral alternative. Pradaxa would be a reasonable oral option. It is approved for treatment of DVT/PE, as well as in patients with non-valvular atrial fibrillation. The patient does not have any underlying liver or kidney disease that would contraindicate its use. Mechanism of action is also different from that of Eliquis - I therefore asked nursing to check for coverage for the 150 mg by mouth twice a day dose. If it is covered, the patient can stop heparin and get a dose now and then be discharged on the same. - Case was also discussed with rheumatology. As her Xeljanz may be a potential provoking factor, this will be held at this time. The patient will follow up with rheumatology to discuss alternative therapies Current Visit: Yes Status: Acute Code(s): I82.409 - ACUTE EMBOLISM AND TH OMBOS UNSP DEEP VN UNSP LOWER EXTREMITY SNOMED Code(s): 437066399 Plan: Defer to the admitting service for management of her other medical problems
[2019-05-13 11:33] LABS: Glucose,Whole Blood 138 mg/dL (75-99)
[2019-05-13] MEDS: DABIGATRAN 150 MG CAP PO SCH ×2 (13:06→21:13)
--- NOTE | 2019-05-13 14:50 | PN ---
PROGRESS NOTE She is a 78-year-old white female, , date of 1940 and room number in the [facility], bed 2. NEW DATA: She is a FULL CODE. Her height is 5 foot 3 inches, weight 82.1 kg, BSA 1.85 m2, BMI 32.1 kg/m2 and her account number again [id number]. ALLERGY AND ADVERSE EFFECT: Entracept , LATEX, SULFONAMIDE, TAPE. Patient is seen and evaluated today. She is feeling much better. However, she had yesterday the venous duplex study on the right lower extremities, which is indicating normal with no evidence of DVT, which was ordered Dr. Montes because of the patient complaint at that time. Also, patient denied any chest pain, denied any shortness of breath and her edema of the lower extremity has been resolved and she did very well today and she was seen today by Dr. Montes, Hematology and Oncology and he did discuss with her the current plan of care with the underlying left DVT and failure of the Eliquis and the patient agreed with him for trying similar in a different mechanism of action and after his discussion, they agreed for using Pradaxa which noted is his reasonable option. And was approved for DVT and PE and also with nonvalvular atrial fibrillation, and at this time also, he advised the patient to discuss the treatment of Xeljanz with the oreman. Currently she is not on any Xeljanz and with the underlying potential provoking factor for DVT. The only question for the Hematology/Oncology; patient is on Plavix with the underlying history of stent placed in the heart, about 5 of them and that was started by the Cardiology and the question is for the Hematology/Oncology, do we have any increased risk of bleeding with using Pradaxa and Plavix or it will be enough to use Pradaxa only or continue with the Plavix with the Pradaxa and that will be causing any risk of high bleeding or not to be monitoring that. I did discuss with nurse and she will call Dr. Montes and meanwhile because the patient is still on the heparin, will hold after the hand heparin discontinuation and clarification with Dr. Montes and starting the Pradaxa and tomorrow she will be having again Pradaxa if Dr. Montes agree with the possible treatment or continuation of Pradaxa and Plavix and subsequently we can send her home in a clarification situation instead of having worried about the risk of bleeding. CURRENT EXAMINATION: She is conscious, alert, oriented. She denied any chest pain and as mentioned, she has negative PE by the CTA of the chest. Today, her vital signs indicating that her temperature is 96.7, and regular heart beat. No evidence of atrial fibrillation. She has respiratory nonlabored 18 per minute, blood pressure 112/60, and respiratory rate 77 with 97% pulse ox on room air. HEENT was negative. Neck was supple and no JVD. No thyromegaly. No lymphadenopathy. Trachea midline. Chest was clear to auscultation percussion. No wheezes, no rhonchi. The heart was regular sinus rhythm and the abdomen was soft. Positive bowel sounds. Extremities, she had still some tenderness on the left lower extremities of the femoral vein and crossing to the popliteal, DVT and with the underlying left leg has markedly improved and with edema resolved. The right lower extremity has been improving with no pain to minimal pain. No edema of the ankles bilaterally or the calf. NEUROLOGICALLY: Stable general condition. No asymmetry and cranial nerves were intact. ASSESSMENT: 1. The failure of Eliquis for prophylaxis of deep venous thrombosis. 2. Underlying new event of deep venous thrombosis of the left lower extremity femoral vein with the extension to the popliteal. 3. Her Eliquis has been discontinued and Dr. Montes is starting her on Pradaxa with the question is do we use Plavix with the Pradaxa and they will clarify that with Dr. Montes and will see after patient taken the Pradaxa and discontinuation of the heparin per order of Dr. Montes and subsequently tomorrow if she is stable and vital signs stable and no further problem, will be discharging her tomorrow. MMODL / IJN: [id number] / MTDStanley
[2019-05-13 16:55] LABS: Glucose,Whole Blood 143 mg/dL (75-99)
[2019-05-13 20:07] LABS: Glucose,Whole Blood 122 mg/dL (75-99)
[2019-05-13] MEDS: DOXAZOSIN 1 MG TAB PO SCH (21:13)
[2019-05-13] MEDS: ZOLPIDEM 5 MG TAB PO PRN (22:50)
[2019-05-14] MEDS: CYCLOBENZAPRINE 10 MG TAB PO PRN ×2 (03:53→12:04)
[2019-05-14] MEDS: HYDROcodone/APAP 10-325MG 1 EACH TAB PO PRN ×2 (03:53→12:03)
[2019-05-14 07:02] LABS: Glucose,Whole Blood 107 mg/dL (75-99)
[2019-05-14] MEDS: INSULIN ASPART (NovoLOG) 100 UNIT/ML VIAL SQ SCH ×2 (08:06→12:05)
[2019-05-14] MEDS: METOPROLOL TARTRATE 50 MG TAB PO SCH (08:25)
[2019-05-14] MEDS: PANTOPRAZOLE 40 MG TABLET PO SCH (08:25)
[2019-05-14] MEDS: LISINOPRIL 5 MG TAB PO SCH (08:25)
[2019-05-14] MEDS: valACYclovir 500 MG TAB PO SCH (08:26)
[2019-05-14] MEDS: DABIGATRAN 150 MG CAP PO SCH (08:26)
[2019-05-14] MEDS: busPIRone HCl 5 MG TAB PO SCH (08:27)
[2019-05-14] MEDS: CEVIMELINE 30 MG CAP PO SCH (08:27)
[2019-05-14 11:08] LABS: Glucose,Whole Blood 161 mg/dL (75-99)
[2019-05-14 12:15] VITALS: PULSE 72; RESP 16
[2019-05-14 13:04] VITALS: BP 137/62; TEMP 97.9
--- NOTE | 2019-05-14 14:08 | P.DS ---
Providers Date of admission: 05/09/19 21:01 Admission date Discharge date 05/14/2019 Expected date of discharge: 05/14/19 Attending physician: Cornelio Garcia Consults: 05/10/19 08:00 Consult Physician Routine Consulting Provider: Edwin Ferraro Consult Reason/Comments: DVT, patient already on elliquis, ALLERGY to Lipitor with itching Do you want consulting provider notified?: Yes Consult Physician Routine Consulting Provider: Hiro Montes Consult Reason/Comments: Left DVT with extension to the popliteal non- provoked, and despite elliquis Do you want consulting provider notified?: Yes Primary care physician: Cornelio Garcia Dictation of discharge summary date of service 05/14/2019. Diagnosis: #1 left femoral vein DVT with extension to the popliteal. #2 failure of r eliquis anticoagulant for preventing DVT, stopped and changed to Paradaxa. After full course of heparin unfractionated IV infusion. #3 coronary artery disease status post 5 stent, patient on Plavix, because of increased risk of bleeding, communication with cardiology as well as hematology oncology decided to stop the Plavix. #4 rheumatoid arthritis, Sjogren syndrome, on xeljanx orally, with the tendency and promot to DVT recommended for discontinuation by Dr. montes/after he discusses that with Dr. Alfonso the home care chaplain. #5 hypertension is controlled, with the blood pressure tendency to be low today 100 systolic, prazosin has been stopped and discontinued. #6 patient on Flexeril currently no apparently reason for use discontinued. #7 history of paroxysmal atrial fibrillation, currently normal sinus rhythm, on anticoagulant. #8 degenerative osteoarthritis. #9 fibromyalgia. #10 hyper-lipidemia. #11 previous history of DVT this is her second episode non-provoked DVT. ER presentation: Patient initially seen in the office because of underlying leg pain and swelling of the ankle with 1-2+ pitting edema. Patient sent to the ultrasound stat in the hospital ultrasound department, they called me back with the presence of the DVT of the left femoral vein on the left lower extremities with extension to the popliteal vein, patient subsequently admitted to the emergency room and admitted to the hospital. Patient already was on eliquis 5 mg twice a day and Plavix 75 mg once a day and she was religiously taken her medication with good compliance, patient developed DVT of the left lower extremities with the underlying failure of anticoagulant. Progress note: Patient started on unfractionated heparin IV, consultation with hematology oncology, consultation with the cardiology, monitoring her vital sign and the blood pressure. Patient had IV heparin for full 5 days since admission until discharge however started on paradaxa yesterday first dosing, Dr. Montes ordered 150 mg twice a day. Subsequently he had a question on the use of Plavix with paradoxical with increased risk of bleeding, Dr. Montes did refer that to the cardiology and subsequently they decided to stop the Plavix with the understandable the patient had stent in the past and she is followed by Dr. Arriola. No complaint of chest pain or shortness of breath she had a complain of the right leg pain, Dr. Montes did order a venous duplex study on the right lower extremities as a repeat and was negative again for DVT. Patient did well, after clarification with the pharmaceutical that the insurance will pay for paradoxical, and the cardiology discontinued the Plavix. And the patient stable general condition patient discharged home today with the adjustment of medication. On discharge exam: Patient is conscious alert oriented her blood pressure was earlier 100 systolic and discontinued the alpha-1 faith which was ordered by different physician i.e. neurologist or cash on delivery clerk. Also discontinuation of Xeljanz for rheumatoid arthritis uncontrolled patient seen by Dr. Carranza because of the tendency to promote DVT. Discontinuation of Flexeril with known unknown reason to be used she doesn't have no muscle spasm. Pain management has been done by Dr. Lemons and she continue to follow on with him. And will follow with Dr. Montes hematology oncology for the paradoxical as well as cardiology Dr. Arriola. She also seen Dr. Tenorio dermatology for pruritus and itching. On exam today: HEENT: Head was normocephalic and atraumatic, pupil was equal reactive, conjunctiva was pink, sclera nonicteric, Normal hearing, oropharynx she has upper plate and lower natural occasional partial use. Neck was supple no JVD no thyromegaly no lymphadenopathy trachea midline. Chest: Clear to auscultation percussion no wheezes no rhonchi's, Heart regular sinus rhythm with a history of paroxysmal atrial fibrillation the present at this time and she is on anticoagulant. Abdomen: Soft. Bowel sounds no organ enlargement. Extremities: Complete resolution of edema of the lower extremities no ankle edema pulses is intact 2+ bilateral. Still have tenderness on the femoral vein on the left lower extremities with extension to the popliteal. Neurologically: Normal mood conscious alert oriented 3 no lateralizing sign and ambulatory. No evidence of TIA or CVA. Assessment stable general condition for discharge home today . Discussed with the patient the changes of medication in detail and given typed medication list by myself as well as discussed the medication with the prescription given to the patient as well. Plan: To follow-up with the consulting physician cardiology, hematology oncology, home care chaplain, pain management Dr. Lemons, and the cash on delivery clerk as outpatient Follow-up appointment with me Dr. Garcia in 5-7 days post discharge or sooner if any other problems arised. Patient Condition at Discharge: Fair Plan - Discharge Summary Discharge Rx Participant: No New Discharge Prescriptions: New Dabigatran [Pradaxa] 150 mg PO BID #60 capsule Lisinopril [Zestril] 5 mg PO DAILY #30 tab Continue Cevimeline [Evoxac] 30 mg PO BID Atorvastatin [Lipitor] 80 mg PO HS valACYclovir [Valtrex] 500 mg PO DAILY Omeprazole [PriLOSEC] 40 mg PO DAILY Nitroglycerin Sl Tabs [Nitrostat] 0.4 mg SUBLINGUAL Q5M PRN tab PRN Reason: Chest Pain busPIRone HCl [Buspar] 5 mg PO BID Insulin Aspart (Niacinamide) [Fiasp 100 Unit/ml Flextouch] See Protocol SQ ACHS PRN PRN Reason: BLOOD SUGAR Insulin Glargine,Hum.rec.anlog [Lantus Solostar] 10 unit SQ HS rOPINIRole HCL [Requip] 0.25 mg PO HS Loratadine [Claritin] 10 mg PO DAILY PRN PRN Reason: Allergy Symptoms Hydrocodone/Acetaminophen [[place] 10-325] 1 tab PO TID PRN PRN Reason: Pain Memantine [Namenda] 10 mg PO DAILY Zolpidem [Ambien] 5 mg PO HS PRN tab PRN Reason: Insomnia Pramox-Calamine 1-8% Lotion [Caladryl] 1 applic TOPICAL TID PRN lotion PRN Reason: Skin Irritation Metoprolol Tartrate [Lopressor] 50 mg PO BID #60 tab Dabigatran [Pradaxa] 150 mg PO BID #60 cap Discontinued Gabapentin [Neurontin] 600 mg PO DIRECTED Tofacitinib Citrate [Xeljanz] 5 mg PO BID Clopidogrel [Plavix] 75 mg PO DAILY tab Cyclobenzaprine [Flexeril] 10 mg PO TID PRN PRN Reason: Muscle Spasm Terazosin [Hytrin] 1 mg PO HS Apixaban [Eliquis] 5 mg PO BID tab Discharge Medication List Atorvastatin [Lipitor] 80 mg PO HS 04/29/14 [History] Cevimeline [Evoxac] 30 mg PO BID 04/29/14 [History] Omeprazole [PriLOSEC] 40 mg PO DAILY 12/01/17 [History] valACYclovir [Valtrex] 500 mg PO DAILY 12/01/17 [History] Nitroglycerin Sl Tabs [Nitrostat] 0.4 mg SUBLINGUAL Q5M PRN tab 01/11/18 [Rx] Insulin Aspart (Niacinamide) [Fiasp 100 Unit/ml Flextouch] See Protocol SQ ACHS PRN 07/18/18 [History] Insulin Glargine,Hum.rec.anlog [Lantus Solostar] 10 unit SQ HS 07/18/18 [History] busPIRone HCl [Buspar] 5 mg PO BID 07/18/18 [History] rOPINIRole HCL [Requip] 0.25 mg PO HS 07/18/18 [History] Loratadine [Claritin] 10 mg PO DAILY PRN 02/01/19 [History] Hydrocodone/Acetaminophen [[place] 10-325] 1 tab PO TID PRN 03/25/19 [History] Memantine [Namenda] 10 mg PO DAILY 03/25/19 [History] Pramox-Calamine 1-8% Lotion [Caladryl] 1 applic TOPICAL TID PRN lotion 03/27/19 [Rx] Zolpidem [Ambien] 5 mg PO HS PRN tab 03/27/19 [Rx] Dabigatran [Pradaxa] 150 mg PO BID #60 capsule 05/13/19 [Rx] Dabigatran [Pradaxa] 150 mg PO BID #60 cap 05/14/19 [Rx] Lisinopril [Zestril] 5 mg PO DAILY #30 tab 05/14/19 [Rx] Metoprolol Tartrate [Lopressor] 50 mg PO BID #60 tab 05/14/19 [Rx] Follow up Appointment(s)/Referral(s): Cornelio Garcia MD [Primary Care Provider] - 1 Week Edwin Ferraro MD [STAFF PHYSICIAN] - 1 Week Noemi Alfonso MD [STAFF PHYSICIAN] - 1 Week Hiro Montes MD [STAFF PHYSICIAN] - 1 Week Patient Instructions/Handouts: Dabigatran (By mouth)
== END 2019-05-14 15:20 | disposition home or self-care (01) | DRG 301 ==
LOC: EC 17:13 → 3NMEDONC 21:01
PROVIDERS: ADMIT Internal Medicine; ATTEND Internal Medicine
DX: I82.412 Acute embolism and thrombosis of left femoral vein (principal); I82.432 Acute embolism and thrombosis of left popliteal vein; E11.40 Type 2 diabetes mellitus with diabetic neuropathy, unspecified; E78.5 Hyperlipidemia, unspecified; G25.81 Restless legs syndrome; G89.4 Chronic pain syndrome; I11.9 Hypertensive heart disease without heart failure; I25.10 Atherosclerotic heart disease of native coronary artery without angina pectoris; I25.2 Old myocardial infarction; I25.5 Ischemic cardiomyopathy; I34.0 Nonrheumatic mitral (valve) insufficiency; I48.0 Paroxysmal atrial fibrillation; J44.9 Chronic obstructive pulmonary disease, unspecified; K21.9 Gastro-esophageal reflux disease without esophagitis; M06.9 Rheumatoid arthritis, unspecified; M19.90 Unspecified osteoarthritis, unspecified site; M79.7 Fibromyalgia; Z79.01 Long term (current) use of anticoagulants; Z79.02 Long term (current) use of antithrombotics/antiplatelets; Z79.4 Long term (current) use of insulin; Z79.899 Other long term (current) drug therapy; Z85.828 Personal history of other malignant neoplasm of skin; Z86.718 Personal history of other venous thrombosis and embolism; Z86.73 Personal history of transient ischemic attack (TIA), and cerebral infarction without residual deficits; Z87.891 Personal history of nicotine dependence; Z88.8 Allergy status to other drugs, medicaments and biological substances; Z90.710 Acquired absence of both cervix and uterus; Z91.14 Patient's other noncompliance with medication regimen; Z95.5 Presence of coronary angioplasty implant and graft; Z88.2 Allergy status to sulfonamides; Z91.040 Latex allergy status; Z90.49 Acquired absence of other specified parts of digestive tract; Z98.42 Cataract extraction status, left eye; Z98.41 Cataract extraction status, right eye; Z79.52 Long term (current) use of systemic steroids
CPT/HCPCS: 36415; 71045; 71275; 72170; 80048; 80053; 80061; 82272; 84484; 85025; 85598; 85610; 85613; 85652; 85730; 85732; 86146; 86147; 93005; 93970; 96365; 96366; 96376; 99285

== ENCOUNTER → 2019-06-25 | Outpatient (CLI) | payer MEDICARE ==
[2019-06-25 11:15] LABS: Basophils % (A) 1 %; Eosinophils % (A) 1 %; HCT 39.4 % (34.0-46.0); HGB 12.6 gm/dL (11.4-16.0); Lymphocytes # (A) 1.6 k/uL (1.0-4.8); Lymphocytes % (A) 24 %; MCV 87.4 fL (80.0-100.0); Mean Platelet Volume 6.4; Monocytes # (A) 0.4 k/uL (0-1.0); Monocytes % (A) 6 %; Neutrophils # (A) 4.3 k/uL (1.3-7.7); Neutrophils % (A) 67 %; Platelet Count 265 k/uL (150-450); RBC 4.51 m/uL (3.80-5.40); RDW 15.2 % (11.5-15.5); WBC 6.4 k/uL (3.8-10.6)
[2019-06-25 18:02] LABS: ALT 14 U/L (8-44); AST 21 U/L (13-35); African American GFR (CKD) 82.4 (60.0-200.0); Albumin/Globulin Ratio 2.25 (1.60-3.17); Alkaline Phosphatase 79 U/L (41-126); Bilirubin, Conjugated <0.20 mg/dL (0.20-0.40); Calcium 9.8 mg/dL (8.7-10.3); Carbon Dioxide 23.9 mmol/L (21.6-31.8); Chloride 103 mmol/L (96-109); Glucose 131 mg/dL (70-110); Non-African American GFR(CKD) 71.1 (60.0-200.0); Potassium 4.5 mmol/L (3.5-5.5); Sodium 138 mmol/L (135-145); Total Bilirubin 0.3 mg/dL (0.3-1.2); Total Protein 6.5 g/dL (6.2-8.2)
[2019-06-25 19:16] LABS: Hemoglobin A1C 7.1 % (4.0-6.0)
== END | disposition home or self-care (01) ==
LOC: LABWHC1 09:51
PROVIDERS: ATTEND Internal Medicine
DX: E11.65 Type 2 diabetes mellitus with hyperglycemia (principal); E11.22 Type 2 diabetes mellitus with diabetic chronic kidney disease; D63.1 Anemia in chronic kidney disease; N18.3 Chronic kidney disease, stage 3 (moderate); K75.9 Inflammatory liver disease, unspecified
CPT/HCPCS: 36415; 80048; 80076; 83036; 85025

== ENCOUNTER 2019-11-02 19:48 | Inpatient (IN) | payer MEDICARE ==
[2019-11-02] MEDS ORDERED: NITROGLYCERIN SL TABS 0.4 MG TAB SUBLINGUAL STA ×2 (20:28)
[2019-11-02] MEDS ORDERED: ASPIRIN 81 MG PO STA (20:28)
--- NOTE | 2019-11-02 20:31 | ED ---
General Adult HPI - General Chief complaint: Chest Pain Stated complaint: Chest pain Time Seen by Provider: 11/02/19 20:17 Source: patient, RN notes reviewed Mode of arrival: wheelchair Limitations: no limitations - History of Present Illness Initial comments: Patient is a pleasant 78-year-old female presenting to the emergency Department with complaints of chest discomfort. Onset of symptoms was less than an hour prior to arrival. Patient has discomfort of her chest and upper back. Discomfort does increase with position changes and deep breaths. Patient does feel somewhat short of breath as well. Discomfort is moderate to severe. No associated nausea or diaphoresis. Patient did have some tingling in both of her hands. No history of similar symptoms previously. Discomfort is difficult to describe. No fevers. - Related Data Home Medications Medication Instructions Recorded Confirmed Cevimeline [Evoxac] 30 mg PO BID 04/29/14 11/02/19 valACYclovir [Valtrex] 500 mg PO DIRECTED 12/01/17 11/02/19 Insulin Glargine,Hum.rec.anlog 10 unit SQ HS 07/18/18 11/02/19 [Lantus Solostar] rOPINIRole HCL [Requip] 0.25 mg PO HS 07/18/18 11/02/19 Loratadine [Claritin] 10 mg PO DAILY PRN 02/01/19 11/02/19 Hydrocodone/Acetaminophen [[place] 1 tab PO TID PRN 03/25/19 11/02/19 10-325] Memantine [Namenda] 10 mg PO BID 03/25/19 11/02/19 Atorvastatin [Lipitor] 40 mg PO HS 11/02/19 11/02/19 Cromolyn 4% Eye Drops 1 drop BOTH EYES QAM 11/02/19 11/02/19 DULoxetine HCL [Cymbalta] 60 mg PO DAILY 11/02/19 11/02/19 Fluticasone Nasal [place] [Flonase 2 spr EA NOSTRIL DAILY PRN 11/02/19 11/02/19 Nasal [place]] Furosemide [Lasix] 20 mg PO DAILY 11/02/19 11/02/19 Gabapentin [Neurontin] 300 mg PO TID 11/02/19 11/02/19 INSULIN LISPRO (humaLOG) [humaLOG] 5 units SQ AC-TID PRN 11/02/19 11/02/19 INSULIN LISPRO (humaLOG) [humaLOG] See Protocol SQ AC-TID PRN 11/02/19 11/02/19 Lisinopril [Zestril] 2.5 mg PO DAILY 11/02/19 11/02/19 Metoprolol Succinate [Toprol XL] 25 mg PO DAILY 11/02/19 11/02/19 Olopatadine HCl 1 drop BOTH EYES QAM 11/02/19 11/02/19 Omeprazole [PriLOSEC] 40 mg PO DAILY 11/02/19 11/02/19 Prednisone (Unknown Dose) 1 tab PO DAILY 11/02/19 11/02/19 Primidone [Mysoline] 25 mg PO DAILY 11/02/19 11/02/19 Sennosides [Senokot] 8.6 mg PO DAILY PRN 11/02/19 11/02/19 Terazosin HCl 5 mg PO HS 11/02/19 11/02/19 busPIRone HCL 10 mg PO BID 11/02/19 11/02/19 tiZANidine [Zanaflex] 4 mg PO BID PRN 11/02/19 11/02/19 valACYclovir HCL [Valtrex] 1 g PO TID 11/02/19 11/02/19 Previous Rx's Medication Instructions Recorded Nitroglycerin Sl Tabs [Nitrostat] 0.4 mg SUBLINGUAL Q5M PRN tab 01/11/18 Zolpidem [Ambien] 5 mg PO HS PRN tab 03/27/19 Dabigatran [Pradaxa] 150 mg PO BID #60 capsule 05/13/19 Allergies Allergy/AdvReac Type Severity Reaction Status Date / Time etanercept [From Enbrel] Allergy Rash/Hives Verified 11/02/19 21:26 latex Allergy Itching Verified 11/02/19 21:26 Sulfa (Sulfonamide Allergy Rash/Hives Verified 11/02/19 21:26 Antibiotics) tape Allergy Rash/Hives Uncoded 11/02/19 19:54 Review of Systems ROS Statement: Those systems with pertinent positive or pertinent negative responses have been documented in the HPI. ROS Other: All systems not noted in ROS Statement are negative. Constitutional: Denies: fever Eyes: Denies: eye pain ENT: Denies: ear pain Respiratory: Reports: dyspnea. Denies: cough Cardiovascular: Reports: chest pain. Denies: palpitations Endocrine: Denies: fatigue Gastrointestinal: Denies: abdominal pain, nausea, vomiting Genitourinary: Denies: dysuria Musculoskeletal: Reports: as per HPI Skin: Denies: rash Neurological: Denies: weakness Past Medical History Past Medical History: Coronary Artery Disease (CAD), Chest Pain / Angina, CVA/ TIA, Diabetes Mellitus, Deep Vein Thrombosis (DVT), Eye Disorder, Fibromyalgia, Hyperlipidemia, Hypertension, Myocardial Infarction (OR), Osteoarthritis (OA), Rheumatoid Arthritis (RA) Additional Past Medical History / Comment(s): "Leaky" heart valve, NIDDM type II, neuropathy R hand and feet, DVT R calf, chronic pain, chronic back pain, DDD, anemia, hiatal hernia, hemorrhoids, IBS, diverticulosis, constipation, sinus problems, falls, skin cancer with removal, shingelle "break outs" Last Myocardial Infarction Date:: 2017 History of Any Multi-Drug Resistant Organisms: None Reported Past Surgical History: Appendectomy, Cholecystectomy, Heart Catheterization, Heart Catheterization With Stent, Hernia Repair, Hysterectomy, Tonsillectomy Additional Past Surgical History / Comment(s): PCI with multiple stents(6-7), ventral hernia repair, colonoscopy, bilateral cataract removals, skin cancer removals. Past Anesthesia/Blood Transfusion Reactions: No Reported Reaction Date of Last Stent Placement:: 2017 Past Psychological History: Depression Smoking Status: Former smoker Past Alcohol Use History: None Reported Past Drug Use History: None Reported - Past Family History Father Additional Family Medical History / Comment(s): pt stated had heart issues, but not sure what Mother Additional Family Medical History / Comment(s): leaking valve General Exam Limitations: no limitations General appearance: alert, in no apparent distress Head exam: Present: normocephalic Eye exam: Present: normal appearance Neck exam: Present: normal inspection Respiratory exam: Present: normal lung sounds bilaterally. Absent: chest wall tenderness Cardiovascular Exam: Present: regular rate, normal rhythm Expanded Peripheral pulses: 2+: Radial (R), Radial (L), Posterior Tibialis (R), Posterior Tibialis (L), Dorsalis Pedis (R), Dorsalis Pedis (L) GI/Abdominal exam: Present: soft. Absent: distended, tenderness Extremities exam: Present: normal inspection. Absent: pedal edema, calf tenderness Back exam: Present: normal inspection, tenderness (Mild tenderness over the upper back/mid trapezius region) Neurological exam: Present: alert, oriented X3. Absent: motor sensory deficit Psychiatric exam: Present: normal affect, normal mood Skin exam: Present: normal color Course Vital Signs 11/02/19 11/02/19 11/02/19 19:52 21:35 21:48 Temperature 98.1 F Pulse Rate 89 80 83 Respiratory 18 18 Rate Blood Pressure 135/60 115/60 127/60 O2 Sat by Pulse 98 94 L 100 Oximetry 11/02/19 22:15 Temperature Pulse Rate 83 Respiratory 17 Rate Blood Pressure 113/65 O2 Sat by Pulse 99 Oximetry - Reevaluation(s) Reevaluation #1: 11/02/19 21:57 Repeat EKG shows normal sinus rhythm 81. VA 198. QRS 90. QT 368. QTC 427. Normal axis. Inferior Q waves. Lateral T wave flattening. EKG Findings - EKG Comments: EKG Findings:: Normal sinus rhythm 84. VA 182. QRS 78. QT 386. QTc 456. Normal axis. Inferior Q waves. No acute ST change. Medical Decision Making - Medical Decision Making Patient reevaluated and significantly improved. Patient updated on results and plan. Case discussed in detail with Dr. Henderson, who will admit covering for Dr. Julian. Patient specifically updated on rest nodule on chest CT. - Lab Data Result diagrams: 11/02/19 20:30 11/02/19 20:30 Lab Results 11/02/19 11/02/19 11/02/19 Range/Units 20:30 20:30 20:30 WBC 8.1 (3.8-10.6) k/uL RBC 3.84 (3.80-5.40) m/uL Hgb 10.9 L (11.4-16.0) gm/dL Hct 33.1 L (34.0-46.0) % MCV 86.3 (80.0-100.0) fL MCH 28.3 (25.0-35.0) pg MCHC 32.8 (31.0-37.0) g/dL RDW 14.7 (11.5-15.5) % Plt Count 234 (150-450) k/uL Neutrophils % 63 % Lymphocytes % 27 % Monocytes % 6 % Eosinophils % 2 % Basophils % 0 % Neutrophils # 5.1 (1.3-7.7) k/uL Lymphocytes # 2.2 (1.0-4.8) k/uL Monocytes # 0.5 (0-1.0) k/uL Eosinophils # 0.1 (0-0.7) k/uL Basophils # 0.0 (0-0.2) k/uL PT 14.5 H (9.0-12.0) sec INR 1.5 H (<1.2) APTT 48.7 H (22.0-30.0) sec D-Dimer 0.66 H (<0.60) mg/L FEU Sodium 129 L (137-145) mmol/L Potassium 4.0 (3.5-5.1) mmol/L Chloride 96 L (98-107) mmol/L Carbon Dioxide 23 (22-30) mmol/L Anion Gap 10 mmol/L BUN 23 H (7-17) mg/dL Creatinine 0.98 (0.52-1.04) mg/dL Est GFR (CKD-EPI)AfAm 64 (>60 ml/min/1.73 sqM) Est GFR (CKD-EPI)NonAf 56 (>60 ml/min/1.73 sqM) Glucose 168 H (74-99) mg/dL Calcium 8.7 (8.4-10.2) mg/dL Magnesium 1.8 (1.6-2.3) mg/dL Total Bilirubin 0.3 (0.2-1.3) mg/dL AST 26 (14-36) U/L ALT 14 (4-34) U/L Alkaline Phosphatase 61 (38-126) U/L Troponin I (0.000-0.034) ng/mL NT-Pro-B Natriuret Pep pg/mL Total Protein 6.1 L (6.3-8.2) g/dL Albumin 3.6 (3.5-5.0) g/dL Amylase 32 (30-110) U/L Lipase 35 (23-300) U/L 11/02/19 11/02/19 Range/Units 20:30 20:30 WBC (3.8-10.6) k/uL RBC (3.80-5.40) m/uL Hgb (11.4-16.0) gm/dL Hct (34.0-46.0) % MCV (80.0-100.0) fL MCH (25.0-35.0) pg MCHC (31.0-37.0) g/dL RDW (11.5-15.5) % Plt Count (150-450) k/uL Neutrophils % % Lymphocytes % % Monocytes % % Eosinophils % % Basophils % % Neutrophils # (1.3-7.7) k/uL Lymphocytes # (1.0-4.8) k/uL Monocytes # (0-1.0) k/uL Eosinophils # (0-0.7) k/uL Basophils # (0-0.2) k/uL PT (9.0-12.0) sec INR (<1.2) APTT (22.0-30.0) sec D-Dimer (<0.60) mg/L FEU Sodium (137-145) mmol/L Potassium (3.5-5.1) mmol/L Chloride (98-107) mmol/L Carbon Dioxide (22-30) mmol/L Anion Gap mmol/L BUN (7-17) mg/dL Creatinine (0.52-1.04) mg/dL Est GFR (CKD-EPI)AfAm (>60 ml/min/1.73 sqM) Est GFR (CKD-EPI)NonAf (>60 ml/min/1.73 sqM) Glucose (74-99) mg/dL Calcium (8.4-10.2) mg/dL Magnesium (1.6-2.3) mg/dL Total Bilirubin (0.2-1.3) mg/dL AST (14-36) U/L ALT (4-34) U/L Alkaline Phosphatase (38-126) U/L Troponin I <0.012 (0.000-0.034) ng/mL NT-Pro-B Natriuret Pep 319 pg/mL Total Protein (6.3-8.2) g/dL Albumin (3.5-5.0) g/dL Amylase (30-110) U/L Lipase (23-300) U/L - Radiology Data Radiology results: report reviewed (CT angios chest shows cardiomegaly. No pulmonary embolism. Hiatal hernia. Breast nodule.), image reviewed (Chest x- ray shows no acute process.) Disposition Clinical Impression: Chest pain Disposition: ADMITTED IP TO THIS HOSP Is patient prescribed a controlled substance at d/c from ED?: No Referrals: Ziyad Julian DO [Primary Care Provider] - 1-2 days Decision Time: 22:21
[2019-11-02 20:54] LABS: Basophils % (A) 0 %; Eosinophils # (A) 0.1 k/uL (0-0.7); Eosinophils % (A) 2 %; HCT 33.1 % (34.0-46.0); HGB 10.9 gm/dL (11.4-16.0); Lymphocytes # (A) 2.2 k/uL (1.0-4.8); Lymphocytes % (A) 27 %; MCH 28.3 pg (25.0-35.0); MCHC 32.8 g/dL (31.0-37.0); MCV 86.3 fL (80.0-100.0); Mean Platelet Volume 7.3; Monocytes # (A) 0.5 k/uL (0-1.0); Monocytes % (A) 6 %; Neutrophils # (A) 5.1 k/uL (1.3-7.7); Neutrophils % (A) 63 %; Platelet Count 234 k/uL (150-450); RBC 3.84 m/uL (3.80-5.40); RDW 14.7 % (11.5-15.5); WBC 8.1 k/uL (3.8-10.6)
--- NOTE | 2019-11-02 20:59 | XR ---
EXAMINATION TYPE: XR chest 2V DATE OF EXAM: 11/02/2019 COMPARISON: 05/09/2019 TECHNIQUE: PA and lateral views submitted. HISTORY: Shortness of breath and chest pain FINDINGS: The lungs are clear and there is no pneumothorax, pleural effusion, or focal pneumonia. Postsurgica l change right shoulder and cervical spine. No overt failure. Arthropathy of the shoulders. Small hia benedicto hernia suspected. Degenerative changes of the spine. Suggest coronary stent placement. IMPRESSION: 1. No acute process. Correlate for hiatal hernia.
[2019-11-02 21:05] LABS: INR 1.5 (<1.2); Partial Thromboplastin Time 48.7 sec (22.0-30.0); Prothrombin Time 14.5 sec (9.0-12.0)
[2019-11-02 21:12] LABS: D-Dimer 0.66 mg/L FEU (<0.60)
[2019-11-02] MEDS: NITROGLYCERIN SL TABS 0.4 MG TAB SUBLINGUAL STA ×2 (21:29→21:48)
[2019-11-02 21:30] LABS: Albumin 3.6 g/dL (3.5-5.0); Calcium 8.7 mg/dL (8.4-10.2); Magnesium 1.8 mg/dL (1.6-2.3); Total Bilirubin 0.3 mg/dL (0.2-1.3); Total Protein 6.1 g/dL (6.3-8.2)
--- NOTE | 2019-11-02 22:07 | CT ---
EXAMINATION TYPE: CT angio chest DATE OF EXAM: 11/02/2019 9:47 PM COMPARISON: 05/10/2019 HISTORY: Chest and back pain, dyspnea CT DLP: 448.3 mGycm Automated exposure control for dose reduction was used. CONTRAST: CTA scan of the thorax is performed with IV Contrast, patient injected with 80 mL of Isovue 370, pulm onary embolism protocol. . FINDINGS: LUNGS: No pleural effusion or pneumothorax. Basilar bronchiectasis noted. Peripheral subsegmental are as of consolidation in the basis of atelectasis correlate clinically to exclude developing infiltrate . 6 mm subpleural nodule superior segment left lower lobe. Not seen clearly on prior exam. MEDIASTINUM: There is satisfactory enhancement of the pulmonary artery and its branches, there is no CT evidence for pulmonary embolism. There are no greater than 1 cm hilar or mediastinal lymph nodes. Correlate for coronary artery stenting or calcification. Trace of pericardial fluid noted in the s uperior pericardial recess. OTHER: Large hiatal hernia noted. Postcholecystectomy changes seen. Atherosclerotic changes aorta in cluding the mesenteric vasculature. Chronic rib deformities noted suggest remote trauma. Hypertrophic and degenerative changes of vertebral column noted. A nonobstructing 5 mm less left renal calculus. Calcification along the inner margin posterior segment right lobe the liver is nonspecific. 1 cm righ t breast nodule. IMPRESSION: 1. Cardiomegaly with suggestion previous coronary artery stenting. 2. No diagnostic evidence of pulmonary embolism 3. Peripheral subsegmental areas of consolidation correlate for atelectasis versus early infiltrate. 4. Large hiatal hernia. 5. Nonobstructing left renal calculus. 5. There is a nodule in the right breast measuring 1 cm recommend follow-up mammogram.
[2019-11-02] MEDS ORDERED: NITROGLYCERIN SL TABS 0.4 MG TAB SUBLINGUAL PRN (22:24)
[2019-11-02] MEDS ORDERED: tiZANidine 4 MG TAB PO PRN (22:25)
[2019-11-02] MEDS: ZOLPIDEM 5 MG TAB PO PRN (23:46)
[2019-11-02] MEDS: NITROGLYCERIN OINT 1 INCH/GM PACKET TOPICAL SCH (23:46)
[2019-11-03] MEDS ORDERED: HYDROcodone/APAP 10-325MG 1 EACH TAB PO PRN ×2 (00:01→09:25)
[2019-11-03 03:07] LABS: Cholesterol 129 mg/dL (<200); HDL Cholesterol 36 mg/dL (40-60); LDL Cholesterol,Calculated 65 mg/dL (0-99); Triglycerides 138 mg/dL (<150)
[2019-11-03 05:57] LABS: Glucose,Whole Blood 161 mg/dL (75-99)
[2019-11-03] MEDS: INSULIN ASPART (NovoLOG) 100 UNIT/ML VIAL SQ SCH ×4 (06:23→21:00)
[2019-11-03] MEDS: NITROGLYCERIN OINT 1 INCH/GM PACKET TOPICAL SCH ×4 (06:23→23:25)
[2019-11-03] MEDS: PANTOPRAZOLE 40 MG TABLET PO SCH (06:26)
[2019-11-03] MEDS ORDERED: AMINOPHYLLINE 500 MG/20 ML VIAL IV PRN (09:22)
[2019-11-03] MEDS ORDERED: CAFFEINE CITRATE 60 MG/3 ML VIAL IV PRN (09:22)
[2019-11-03] MEDS ORDERED: REGADENOSON 0.4 MG/5 ML SYRINGE IV ONE (10:00)
[2019-11-03] MEDS ORDERED: SENNOSIDES 8.6 MG TAB PO PRN (11:07)
[2019-11-03] MEDS ORDERED: INSULIN ASPART (NovoLOG) 100 UNIT/ML VIAL SQ PRN (11:07)
[2019-11-03] MEDS ORDERED: AMINOPHYLLINE 500 MG/20 ML VIAL IV ONE (11:36)
[2019-11-03 12:23] LABS: Hemoglobin A1C 8.6 % (4.0-6.0)
[2019-11-03 12:49] LABS: Glucose,Whole Blood 141 mg/dL (75-99)
[2019-11-03] MEDS: LISINOPRIL 2.5 MG TAB PO SCH (13:12)
[2019-11-03] MEDS: ASPIRIN 325 MG TAB PO SCH (13:12)
[2019-11-03] MEDS: PRIMIDONE 50 MG TAB PO SCH (13:12)
[2019-11-03] MEDS: METOPROLOL SUCCINATE (ER) 25 MG TAB.ER.24H PO SCH (13:12)
[2019-11-03] MEDS: FUROSEMIDE 20 MG TAB PO SCH (13:12)
--- NOTE | 2019-11-03 13:22 | CONS ---
CONSULTATION REASON FOR CONSULTATION: Chest pain. Mrs. Marie Zazueta is a 78-year-old lady with known history of CAD, previous multivessel PCI. She has type 2 diabetes, insulin requiring; hypertension; hypercholesterolemia; and also apparently has a history of DVT and has been on Pradaxa 150 mg b.i.d. This lady came into the hospital with an episode of chest pain. EKG does not reveal any significant ST segment changes. There is evidence of old inferior LA but no acute ST segment abnormalities. She is resting comfortably at the time of my evaluation. Complains of some midscapular discomfort, seems musculoskeletal. She came in with complaints of having discomfort in the chest mostly that seems to get worse when leaning forward and on deep breath. She did not have any relief with nitroglycerin but had some improvement when she received some pain medications and she seems to take [place] on a regular basis. At the time of my evaluation, her pain has improved and the pain quality seems to be more or less musculoskeletal. She does carry a diagnosis of rheumatoid arthritis and fibromyalgia additionally. She had a previous inferior LA and underwent stenting of RCA in 2018 and prior to that had LAD stenting performed. PAST MEDICAL HISTORY: 1. CAD with multivessel PCI. 2. History of TIA, details unclear. 3. Type 2 diabetes. 4. Rheumatoid arthritis and fibromyalgia. 5. History of aortic regurgitation. 6. History of prior inferior LA. MEDICATIONS: Medications at home include Lantus insulin, she also takes Lipitor 40 mg daily, Zestril 2.5 mg daily, metoprolol succinate 25 mg daily, and Lasix 20 mg daily. She also takes Pradaxa 150 mg b.i.d. for some DVT, details of which are unclear. ALLERGIES: She is allergic to SULFA and ENBREL. PHYSICAL EXAMINATION: Blood pressure is 110/70, pulse rate of 118/70, pulse rate is 80 per minute, regular. HEENT: Unremarkable. Fundus was not examined by me. NECK: Supple. There is no JVD. I do not hear a carotid bruit. HEART: Exam reveals S1, S2 heard normally. There is a soft diastolic murmur at left sternal border. LUNGS: Reveal decent air entry. ABDOMEN: Soft. Lower extremity revealed diminished pulses. CENTRAL NERVOUS SYSTEM: Normal. EKG reveals sinus mechanism. No acute changes. Old inferior LA. LABORATORY DATA: Reveals that all three sets of troponins are normal. Renal function is normal. BNP is normal. D-dimer was elevated at 0.[address] angio did not reveal any pulmonary embolism and apparently ascending aortic was not well seen but the aortic arch and the descending thoracic aorta were unremarkable. The ascending aorta and aortic root were not well visualized. IMPRESSION: 1. Chest pain syndrome, cannot exclude angina. 2. History of coronary artery disease with multivessel PCI, last intervention was that of RCA in 2018 with a drug-eluting stent. The patient had prior to that LAD PCI, the details are unclear. 3. History of type 2 diabetes. 4. Hypertension. 5. Hyperlipidemia. 6. Rheumatoid arthritis and fibromyalgia. RECOMMENDATIONS: I am recommending that we will obtain an echocardiogram to assess LV function and also extent of aortic regurgitation and aortic root and also Lexiscan stress test and if these are completely normal I will consider CT angio of the ascending aorta, mainly looking for aortic pathology or a transesophageal echo if patient's symptoms persist. Her blood pressure is not elevated and her symptoms seem more or less musculoskeletal. I will await the results of the testing and then make further recommendations. I discussed my thoughts in detail with the patient. All sets of troponins are normal. Based on clinical course, I will make further recommendations. MMODL / IJN: [id number] /
[2019-11-03] MEDS: busPIRone HCl 10 MG TAB PO SCH ×2 (13:25→20:34)
[2019-11-03] MEDS: valACYclovir HCL 1,000 MG TABLET PO SCH ×2 (13:25→19:48)
[2019-11-03] MEDS: CEVIMELINE 30 MG CAP PO SCH ×2 (13:25→20:34)
[2019-11-03] MEDS: MEMANTINE 10 MG TAB PO SCH ×2 (13:25→20:34)
[2019-11-03] MEDS: GABAPENTIN 300 MG CAP PO SCH ×3 (13:25→19:48)
[2019-11-03] MEDS: DULoxetine HCL 60 MG CAPSULE.DR PO SCH (13:25)
[2019-11-03] MEDS: CROMOLYN 4% BOTH EYES SCH (13:27)
[2019-11-03] MEDS: EYE BOTH EYES SCH (13:27)
--- NOTE | 2019-11-03 13:36 | NM ---
EXAMINATION TYPE: NM stress lexiscan cardiolite DATE OF EXAM: 11/03/2019 COMPARISON: 12/03/2017 HISTORY: Chest pain TECHNIQUE: After the intravenous administration of 10.8 mCi Tc 99m Sestamibi - Cardiolite resting SP ECT images acquired 60 minutes post injection. The patient received 0.4mg Lexiscan, 26.3 mCi Tc 99m Sestamibi - Stress images obtained [address] injection FINDINGS: There is a large defect along the inferior wall extending to nearly the apex. Prior infarct should be considered. Wall motion appears normal. Ejection fraction of 47% is slightly low. Normal greater than 50%. IMPRESSION: 1. There appears be an interval infarct which involves the majority of the inferior wall. This appear s matched, stress-induced ischemic changes are not identified. 2. Low ejection fraction of 47%.
--- NOTE | 2019-11-03 14:22 | EST ---
EXERCISE STRESS AGE: 78 SEX: Female HT: 63" WT: 180 pounds PROTOCOL: Lexiscan Cardiolite STAGE: DURATION OF EXERCISE: HEART RATE REST: 79 BLOOD PRESSURE REST: 138/60 MAXIMUM HEART RATE ACHIEVED: 96 MAXIMUM BLOOD PRESSURE: 141/64 85% MPHR: 122 100% MPHR: 143 METS: INDICATIONS: Chest pain. CLINICAL INFORMATION: Baseline rhythm is a sinus mechanism, rate of 79, normal axis and intervals, minor nonspecific ST-T wave changes. Baseline blood pressure 138/60 mmHg. Patient received an injection of Lexiscan. Electrocardiograph monitoring revealed rare single PVCs. There was no evidence of diagnostic ischemic ST deviation. Cardiolite was injected per protocol. CONCLUSION: 1. Nondiagnostic electrocardiograph stress testing with rare single PVCs. 2. Nuclear images will be reported separately. MMODL / IJN: [id number] /
[2019-11-03] MEDS: KETOTIFEN 0.025% OPHTH DROPS 5 ML BTL BOTH EYES SCH ×2 (14:40→19:47)
[2019-11-03] MEDS: CYCLOBENZAPRINE 5 MG TAB PO PRN (15:23)
[2019-11-03] MEDS ORDERED: LORATADINE 10 MG TAB PO PRN (16:16)
[2019-11-03] MEDS: HYDROcodone/APAP 10-325MG 1 EACH TAB PO PRN ×2 (16:38→21:27)
[2019-11-03 16:39] LABS: Glucose,Whole Blood 186 mg/dL (75-99)
[2019-11-03] MEDS: DABIGATRAN 150 MG CAP PO SCH ×2 (17:06→19:48)
--- NOTE | 2019-11-03 18:40 | P.HPIM ---
History of Present Illness H&P Date: 11/03/19 Chief Complaint: Chest pain History of presenting complaint: This is a 78-year-old patient of Dr. Kimberlee Julian. Chronic stable medical conditions include diabetes, fibromyalgia, hypertension, hyperlipidemia, rheumatoid arthritis neuropathy chronic pain in the lateral hernia IBS diverticulosis. Patient is always trouble with that rheumatoid arthritis. Which she has chronically in different joints including the back. Patient began having pain between her shoulder blades off-and-on. He had pain yesterday for little bit more different. Tired. Minimal shortness of breath no dizziness or lightheadedness. Decided to come in to rule out a cardiac cause. She thinks the last coronary stent was placed in 2018. Admitted with diagnosis of unstable angina and cardiology was consulted. Review of systems: GEN.: Tired EYES: None HEENT: None NECK: None RESPIRATORY: None CARDIOVASCULAR: As above GASTROINTESTINAL: None GENITOURINARY: None MUSCULOSKELETAL: Pain in multiple joints LYMPHATICS: None HEMATOLOGICAL: None PSYCHIATRY: Slightly anxious NEUROLOGICAL: Neuropathy Past medical history to include: Coronary artery disease with stent, diabetes, DVT, fibromyalgia, hypertension, hyperlipidemia, rheumatoid arthritis, peripheral neuropathy, DVT in the right c conner, chronic pain, chronic ITP hernia, hemorrhoids, IBS, diverticulosis, constipation, shingles Social history: Smoked for 20 years stopped in 1980. No alcohol. Lives alone. Physical examination: VITAL SIGNS: 98.1, 89, 18, 135/60, 98% on room air GENERAL: BMI 32.1, sitting up in a chair, not in distress. EYES: Pupils equal. Conjunctiva normal. HEENT: External appearance of nose and ears normal, oral cavity grossly normal. NECK: JVD not raised; masses not palpable. HEART: First and second heart sounds are normal; no edema. LUNGS: Respiratory rate normal; clear to auscultation. ABDOMEN: Soft, nontender, liver spleen not palpable, no masses palpable. PSYCH: [Alert and oriented x3; mood and affect slightly anxious l. MUSCULOSKELETAL: Evidence of arthritis especially in the hands NEUROLOGICAL: Cranial nerves grossly intact; no facial asymmetry, power and sensation grossly intact. LYMPHATICS: No lymph nodes palpable in the axilla and neck INVESTIGATIONS, reviewed in the clinical context: White count 8.1 hemoglobin 10.9 potassium 4 creatinine 0.98 Troponin I 3 specimens 0.012 LDL 65 Chest x-ray film personally reviewed by me-no obvious infiltrate. Questionable chronic changes EKG tracing personally reviewed by me-sinus syndrome unspecific T-wave changes in inferior leads CT chest-cardiomegaly, some atelectasis, large hiatal hernia, nonobstructing left renal calculi. No obvious dissection reported Assessment: -Chest wall pain somewhat atypical cannot rule out a cardiac cause in a patient with already known coronary artery disease. 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 They ordered a stress test. Other home medications resumed. Care was discussed with the patient question were answered. Past Medical History Past Medical History: Coronary Artery Disease (CAD), Chest Pain / Angina, CVA/TIA, Diabetes Mellitus, Deep Vein Thrombosis (DVT), Eye Disorder, Fibromyalgia, Hyperlipidemia, Hypertension, Myocardial Infarction (SC), Osteoarthritis (OA), Rheumatoid Arthritis (RA) Additional Past Medical History / Comment(s): "Leaky" heart valve, NIDDM type II, neuropathy R hand and feet, DVT R calf, chronic pain, chronic back pain, DDD, anemia, hiatal hernia, hemorrhoids, IBS, diverticulosis, constipation, sinus problems, falls, skin cancer with removal, shingelle "break outs" Last Myocardial Infarction Date:: 2017 History of Any Multi-Drug Resistant Organisms: None Reported Past Surgical History: Appendectomy, Cholecystectomy, Heart Catheterization, Heart Catheterization With Stent, Hernia Repair, Hysterectomy, Tonsillectomy Additional Past Surgical History / Comment(s): PCI with multiple stents(6-7), ventral hernia repair, colonoscopy, bilateral cataract removals, skin cancer rem ovals. Past Anesthesia/Blood Transfusion Reactions: No Reported Reaction Date of Last Stent Placement:: 2017 Past Psychological History: Depression Additional Psychological History / Comment(s): . Smoking Status: Never smoker Past Alcohol Use History: None Reported Additional Past Alcohol Use History / Comment(s): Pt started smoking in 1960 and quit in 1980. Past Drug Use History: None Reported - Past Family History Father Additional Family Medical History / Comment(s): pt stated had heart issues, but not sure what Mother Additional Family Medical History / Comment(s): leaking valve Medications and Allergies Home Medications Medication Instructions Recorded Confirmed Type Cevimeline [Evoxac] 30 mg PO BID 04/29/14 11/02/19 History valACYclovir [Valtrex] 500 mg PO DIRECTED 12/01/17 11/02/19 History Nitroglycerin Sl Tabs [Nitrostat] 0.4 mg SUBLINGUAL Q5M PRN tab 01/11/18 11/02/19 Rx Insulin Glargine,Hum.rec.anlog 10 unit SQ HS 07/18/18 11/02/19 History [Lantus Solostar] rOPINIRole HCL [Requip] 0.25 mg PO HS 07/18/18 11/02/19 History Loratadine [Claritin] 10 mg PO DAILY PRN 02/01/19 11/02/19 History Hydrocodone/Acetaminophen [Banks 1 tab PO TID PRN 03/25/19 11/02/19 History 10-325] Memantine [Namenda] 10 mg PO BID 03/25/19 11/02/19 History Zolpidem [Ambien] 5 mg PO HS PRN tab 03/27/19 11/02/19 Rx Dabigatran [Pradaxa] 150 mg PO BID #60 capsule 05/13/19 11/02/19 Rx Atorvastatin [Lipitor] 40 mg PO HS 11/02/19 11/02/19 History Cromolyn 4% Eye Drops 1 drop BOTH EYES DAILY 11/02/19 11/03/19 History DULoxetine HCL [Cymbalta] 60 mg PO DAILY 11/02/19 11/02/19 History Fluticasone Nasal [place] [Flonase 2 spr EA NOSTRIL DAILY PRN 11/02/19 11/02/19 History Nasal [place]] Furosemide [Lasix] 20 mg PO DAILY 11/02/19 11/02/19 History Gabapentin [Neurontin] 300 mg PO TID 11/02/19 11/02/19 History INSULIN LISPRO (humaLOG) [humaLOG] 5 units SQ AC-TID PRN 11/02/19 11/02/19 History INSULIN LISPRO (humaLOG) [humaLOG] See Protocol SQ AC-TID PRN 11/02/19 11/02/19 History Lisinopril [Zestril] 2.5 mg PO DAILY 11/02/19 11/02/19 History Metoprolol Succinate [Toprol XL] 25 mg PO DAILY 11/02/19 11/02/19 History Olopatadine HCl 1 drop BOTH EYES DAILY 11/02/19 11/03/19 History Omeprazole [PriLOSEC] 40 mg PO DAILY 11/02/19 11/02/19 History Primidone [Mysoline] 25 mg PO DAILY 11/02/19 11/02/19 History Sennosides [Senokot] 8.6 mg PO DAILY PRN 11/02/19 11/02/19 History Terazosin HCl 5 mg PO HS 11/02/19 11/02/19 History busPIRone HCL 10 mg PO BID 11/02/19 11/02/19 History tiZANidine [Zanaflex] 4 mg PO BID PRN 11/02/19 11/02/19 History valACYclovir HCL [Valtrex] 1 g PO TID 11/02/19 11/02/19 History predniSONE See Taper PO DAILY 11/03/19 11/03/19 History Allergies Allergy/AdvReac Type Severity Reaction Status Date / Time etanercept [From Enbrel] Allergy Rash/Hives Verified 11/02/19 21:26 latex Allergy Itching Verified 11/02/19 21:26 Sulfa (Sulfonamide Allergy Rash/Hives Verified 11/02/19 21:26 Antibiotics) tape Allergy Rash/Hives Uncoded 11/02/19 19:54 Physical Exam Vitals: Vital Signs Temp Pulse Pulse Resp BP BP Pulse Ox 11/03/19 08:00 98.2 F 71 16 158/71 97 11/03/19 03:54 97.7 F 82 16 168/77 97 11/03/19 00:30 97.9 F 82 16 106/48 98 11/02/19 22:15 83 17 113/65 99 11/02/19 21:48 83 18 127/60 100 11/02/19 21:35 80 115/60 94 L 11/02/19 19:52 98.1 F 89 18 135/60 98 Intake and Output 11/02/19 11/03/19 11/03/19 22:59 06:59 14:59 Other: Voiding Method Toilet # Voids 1 Weight 77.111 kg 82.1 kg Results CBC & Chem 7: 11/02/19 20:30 04/12/20 20:30 Labs: Abnormal Lab Results - Last 24 Hours (Table) 11/02/19 11/02/19 11/02/19 Range/Units 20:30 20:30 20:30 Hgb 10.9 L (11.4-16.0) gm/dL Hct 33.1 L (34.0-46.0) % PT 14.5 H (9.0-12.0) sec INR 1.5 H (<1.2) APTT 48.7 H (22.0-30.0) sec D-Dimer 0.66 H (<0.60) mg/L FEU Sodium 129 L (137-145) mmol/L Chloride 96 L (98-107) mmol/L BUN 23 H (7-17) mg/dL Glucose 168 H (74-99) mg/dL POC Glucose (mg/dL) (75-99) mg/dL Total Protein 6.1 L (6.3-8.2) g/dL HDL Cholesterol (40-60) mg/dL 11/03/19 11/03/19 Range/Units 02:45 05:56 Hgb (11.4-16.0) gm/dL Hct (34.0-46.0) % PT (9.0-12.0) sec INR (<1.2) APTT (22.0-30.0) sec D-Dimer (<0.60) mg/L FEU Sodium (137-145) mmol/L Chloride (98-107) mmol/L BUN (7-17) mg/dL Glucose (74-99) mg/dL POC Glucose (mg/dL) 161 H (75-99) mg/dL Total Protein (6.3-8.2) g/dL HDL Cholesterol 36 L (40-60) mg/dL Thrombosis Risk Factor Assmnt - Choose All That Apply Any of the Below Risk Factors Present?: Yes Each Factor Represents 1 point: Obesity (BMI >25) Each Risk Factor Represents 3 Points: Age 75 years or older, History of DVT/PE Thrombosis Risk Factor Assessment Total Risk Factor Score: 7 Thrombosis Risk Factor Assessment Level: High Risk
[2019-11-03 20:01] VITALS: RESP 16
[2019-11-03 20:30] LABS: Glucose,Whole Blood 196 mg/dL (75-99)
[2019-11-03] MEDS ORDERED: ATORVASTATIN 40 MG TAB PO SCH (21:00)
[2019-11-03] MEDS ORDERED: DOXAZOSIN 4 MG TAB PO SCH (21:00)
[2019-11-03] MEDS ORDERED: INSULIN DETEMIR (LEVEMIR) 100 UNIT/ML SYR SQ SCH (21:00)
[2019-11-03] MEDS: ZOLPIDEM 5 MG TAB PO PRN (21:27)
[2019-11-04] MEDS: CYCLOBENZAPRINE 5 MG TAB PO PRN (05:49)
[2019-11-04] MEDS: HYDROcodone/APAP 10-325MG 1 EACH TAB PO PRN ×2 (05:49→12:51)
[2019-11-04] MEDS: NITROGLYCERIN OINT 1 INCH/GM PACKET TOPICAL SCH ×2 (05:49→12:52)
[2019-11-04] MEDS: PANTOPRAZOLE 40 MG TABLET PO SCH (05:53)
[2019-11-04] MEDS: INSULIN ASPART (NovoLOG) 100 UNIT/ML VIAL SQ SCH ×2 (06:06→12:53)
[2019-11-04 06:08] LABS: Glucose,Whole Blood 131 mg/dL (75-99)
[2019-11-04 08:36] VITALS: TEMP 97.9
[2019-11-04] MEDS: DABIGATRAN 150 MG CAP PO SCH (09:55)
[2019-11-04] MEDS: ASPIRIN 325 MG TAB PO SCH (09:55)
[2019-11-04] MEDS: CEVIMELINE 30 MG CAP PO SCH (09:56)
[2019-11-04] MEDS: busPIRone HCl 10 MG TAB PO SCH (09:56)
[2019-11-04] MEDS: DULoxetine HCL 60 MG CAPSULE.DR PO SCH (09:56)
[2019-11-04] MEDS: FUROSEMIDE 20 MG TAB PO SCH (09:56)
[2019-11-04] MEDS: GABAPENTIN 300 MG CAP PO SCH (09:57)
[2019-11-04] MEDS: METOPROLOL SUCCINATE (ER) 25 MG TAB.ER.24H PO SCH (09:57)
[2019-11-04] MEDS: LISINOPRIL 2.5 MG TAB PO SCH (09:57)
[2019-11-04] MEDS: MEMANTINE 10 MG TAB PO SCH (09:57)
[2019-11-04] MEDS: PRIMIDONE 50 MG TAB PO SCH (09:57)
[2019-11-04] MEDS: valACYclovir HCL 1,000 MG TABLET PO SCH (09:57)
--- NOTE | 2019-11-04 10:00 | ECHOF ---
Referral Reason:assess aortic root and lvf MEASUREMENTS -------- HEIGHT: 160.0 cm WEIGHT: 80.3 kg BP: 101/50 RVIDd: 4.0 cm (< 3.3) IVSd: 1.2 cm (0.6 - 1.1) LVIDd: 3.1 cm (3.9 - 5.3) LVPWd: 1.5 cm (0.6 - 1.1) IVSs: 1.2 cm LVIDs: 2.3 cm LVPWs: 1.7 cm LAESV Index (A-L): 32.98 ml/m Ao Diam: 2.6 cm (2.0 - 3.7) AV Cusp: 1.4 cm (1.5 - 2.6) MV EXCURSION: 18.069 mm (> 18.000) MV EF SLOPE: 33 mm/s (70 - 150) EPSS: 1.4 cm MV E Nikolas: 0.48 m/s MV DecT: 202 ms MV A Nikolas: 1.05 m/s MV E/A Ratio: 0.46 AV maxP.75 mmHg AV meanP.35 mmHg AR PHT: 363 ms RAP: 5.00 mmHg RVSP: 42.36 mmHg FINDINGS -------- Sinus rhythm. This was a technically adequate study. The left ventricular size is normal. There is mild concentric left ventricular hypertrophy. Overa ll left ventricular systolic function is mildly impaired with, an EF between 45 - 50 %. Mitral Dopp ler inflow pattern suggests diastolic filling abnormality 10.00. Mid anteroseptal LV wall motion is hypokinetic. Apical septum LV wall motion is hypokinetic. The right ventricle is moderately enlarged. LA is midly dilated 29-33ml/m2. The right atrial size is normal. Mobile interatrial septum. There is mild aortic valve sclerosis. There is moderate aortic regurgitation. There is mild aorti c stenosis present. Peak/mean gradient across the Aortic Valve is 21.75mmHg / 13.35mmHg. The mitral valve leaflets are mildly thickened. [id number] mitral regurgitation is present. Mild tricuspid regurgitation present. There is mild pulmonary hypertension. The right ventricular systolic pressure, as measured by Doppler, is 42.36mmHg. Trace/mild (physiologic) pulmonic regurgitation. The aortic root size is normal. Normal inferior vena cava with normal inspiratory collapse consistent with estimated right atrial pre ssure of 5 mmHg. There is no pericardial effusion. CONCLUSIONS -------- 1. There is mild concentric left ventricular hypertrophy. 2. Overall left ventricular systolic function is mildly impaired with, an EF between 45 - 50 %. 3. Mitral Doppler inflow pattern suggest diastolic filling abnormality 10.00. 4. Mid anteroseptal LV wall motion is hypokinetic. 5. Apical septum LV wall motion is hypokinetic. 6. The right ventricle is moderately enlarged. 7. LA is midly dilated 29-33ml/m2. 8. Mobile interatrial septum. 9. There is mild aortic valve sclerosis. 10. There is moderate aortic regurgitation. 11. There is mild aortic stenosis present. 12. Peak/mean gradient across the Aortic Valve is 21.75mmHg / 13.35mmHg. 13. [id number] mitral regurgitation is present. 14. Mild tricuspid regurgitation present. 15. There is mild pulmonary hypertension. 16. Trace/mild (physiologic) pulmonic regurgitation. STRIPPER APPRENTICE: Vicki Sherman RDCS
[2019-11-04] MEDS: EYE BOTH EYES SCH (10:48)
[2019-11-04] MEDS: CROMOLYN 4% BOTH EYES SCH (10:48)
--- NOTE | 2019-11-04 11:10 | P.PN ---
Subjective Progress Note Date: 11/04/19 This is a 78-year-old female with known history of coronary artery disease with prior multivessel PCI, history of diabetes, hypertension, hyperlipidemia, prior history of DVT for which the patient was on Pradaxa. She presented to the hospital with symptoms of chest discomfort, underwent a Lexisc an stress test which appeared to show an interval infarct involving the majority of the inferior wall. This was reviewed by Dr. Allie Penn and compared to the patient's prior stress testing. It appeared that these changes were similar to what the patient had in the past. No new changes were noted. The patient was seen and examined this morning and denied any chest discomfort was overall feeling well. Echocardiogram with Doppler study was requested to assess the LV function and also to look at the aortic root. Echocardiogram with Doppler study was performed which revealed an ejection fraction of 45-50%, moderate aortic regurgitation with mild to moderate mitral regurgitation. Mild home-septal hypokinesia. Objective - Vital Signs Vital signs: Vital Signs Temp 97.9 F 11/04/19 08:00 Pulse 84 11/04/19 08:00 Resp 16 11/04/19 08:00 BP 123/76 11/04/19 08:00 Pulse Ox 97 11/04/19 08:00 Intake & Output 11/03/19 11/04/19 11/04/19 18:59 06:59 18:59 Intake Total 240 250 240 Output Total 0 Balance 240 250 240 Weight 82.1 kg 80.4 kg Intake: Oral 240 250 240 Output: Urine 0 Other: Voiding Method Toilet Toilet # Voids 1 2 1 # Bowel Movements 0 - Exam PHYSICAL EXAMINATION: GENERAL: 78-year-old female in no acute distress at the time of my examination HEENT: Head is atraumatic, normocephalic. Pupils equal, round. Sclera anicteric. Conjunctiva are clear. Mucous membranes of the mouth are moist. Neck is supple. There is no elevated jugular venous pressure. No carotid bruit is heard. HEART EXAMINATION: Heart S1 and S2 with systolic murmur is heard CHEST EXAMINATION: Lungs are clear to auscultation and precussion. No chest wall tenderness is noted on palpation or with deep breathing. ABDOMEN: Soft, nontender. Bowel sounds are heard. No organomegaly noted. EXTREMITIES: 2+ peripheral pulses with no evidence of peripheral edema and no calf tenderness noted. NEUROLOGIC patient is awake, alert and oriented 3 . . - Labs CBC & Chem 7: 11/02/19 20:30 11/02/19 20:30 Labs: Abnormal Lab Results - Last 24 Hours (Table) 11/03/19 11/03/19 11/03/19 Range/Units 02:45 12:47 16:37 POC Glucose (mg/dL) 141 H 186 H (75-99) mg/dL Hemoglobin A1c 8.6 H (4.0-6.0) % 11/03/19 11/04/19 Range/Units 20:29 06:05 POC Glucose (mg/dL) 196 H 131 H (75-99) mg/dL Hemoglobin A1c (4.0-6.0) % Assessment and Plan Plan: Assessment and plan #1 chest pain, patient underwent a Lexiscan stress test which showed an interval infarct involving the inferior wall. This was similar to the patient's prior stress test, no new changes noted. #2 coronary artery disease with prior multivessel PCI #3 diabetes #4 hypertension #5 hyperlipidemia #6 history of TIA #7 rheumatoid arthritis #8 history of DVT Plan From cardiology's perspective, patient may be discharged home after lunch today. We will make a follow-up appointment in the office post discharge. DNP note has been reviewed, I agree with a documented findings and plan of care. Patient was seen and examined.
[2019-11-04 11:44] VITALS: BP 122/68; PULSE 79
[2019-11-04 11:47] LABS: Glucose,Whole Blood 194 mg/dL (75-99)
[2019-11-04] MEDS: KETOTIFEN 0.025% OPHTH DROPS 5 ML BTL BOTH EYES SCH (12:51)
--- NOTE | 2019-11-04 20:52 | P.DS ---
Providers Date of admission: 11/04/19 10:17 Expected date of discharge: 11/04/19 Attending physician: Pedro Henderson Consults: 11/02/19 22:24 Consult Physician Urgent Consulting Provider: David Mann Consult Reason/Comments: cp Do you want consulting provider notified?: Yes Primary care physician: Ziyad Julian [facility] Course: Chief Complaint: Chest pain History of presenting complaint: This is a 78-year-old patient of Dr. Kmiberlee Julian. Chronic stable medical conditions include diabetes, fibromyalgia, hypertension, hyperlipidemia, rheu matoid arthritis neuropathy chronic pain in the lateral hernia IBS diverticulosis. Patient is always trouble with that rheumatoid arthritis. Which she has chronically in different joints including the back. Patient began having pain between her shoulder blades off-and-on. He had pain yesterday for little bit more different. Tired. Minimal shortness of breath no dizziness or lightheadedness. Decided to come in to rule out a cardiac cause. She thinks the last coronary stent was placed in 2018. Admitted with diagnosis of unstable angina and cardiology was consulted. Serial troponins were negative. Nuclear stress test was done. Reviewed by cardiology. Not for any further intervention. Today-feeling well. Eager to go home home. Cleared by cardiology. Chest pain- felt to be musculoskeletal.. Discussed the patient. Consultation: Dr. AMANDA Penn from cardiology Physical examination: VITAL SIGNS: 97.9, 79, 16, 122 was a 68, 98% room air GENERAL: BMI 32.1, sitting up in a chair, not in distress. EYES: Pupils equal. Conjunctiva normal. HEENT: External appearance of nose and ears normal, oral cavity grossly normal. NECK: JVD not raised; masses not palpable. HEART: First and second heart sounds are normal; no edema. LUNGS: Respiratory rate normal; clear to auscultation. ABDOMEN: Soft, nontender, liver spleen not palpable, no masses palpable. PSYCH: [Alert and oriented x3; mood and affect slightly anxious l. MUSCULOSKELETAL: Evidence of arthritis especially in the hands INVESTIGATIONS, reviewed in the clinical context: White count 8.1 hemoglobin 10.9 potassium 4 creatinine 0.98 Troponin I 3 specimens 0.012 LDL 65 Chest x-ray film personally reviewed by me-no obvious infiltrate. Questionable chronic changes EKG tracing personally reviewed by me-sinus syndrome unspecific T-wave changes in inferior leads CT chest-cardiomegaly, some atelectasis, large hiatal hernia, nonobstructing left renal calculi. No obvious dissection reported Nuclear stress test no evidence of reversibility Assessment: -Anterior Chest wall pain possibly musculoskeletal from arthritis -Coronary artery disease with prior stent -Diabetes mellitus type 2 -Chronic fibromyalgia -Hyperlipidemia -Essential hypertension -Peripheral neuropathy from diabetes -Chronic hiatal hernia -Irritable bowel syndrome -Chronic diverticulosis -Obesity BMI 32.1 -Left renal calculi-asymptomatic Disposition: Home Patient Condition at Discharge: Stable Plan - Discharge Summary Discharge Rx Participant: No New Discharge Prescriptions: New Aspirin 81 mg PO DAILY #30 chewable Continue Cevimeline [Evoxac] 30 mg PO BID valACYclovir [Valtrex] 500 mg PO DIRECTED Nitroglycerin Sl Tabs [Nitrostat] 0.4 mg SUBLINGUAL Q5M PRN tab PRN Reason: Chest Pain Insulin Glargine,Hum.rec.anlog [Lantus Solostar] 10 unit SQ HS rOPINIRole HCL [Requip] 0.25 mg PO HS Loratadine [Claritin] 10 mg PO DAILY PRN PRN Reason: Allergy Symptoms Hydrocodone/Acetaminophen [Glasco 10-325] 1 tab PO TID PRN PRN Reason: Pain Memantine [Namenda] 10 mg PO BID Zolpidem [Ambien] 5 mg PO HS PRN tab PRN Reason: Insomnia Dabigatran [Pradaxa] 150 mg PO BID #60 capsule valACYclovir HCL [Valtrex] 1 g PO TID tiZANidine [Zanaflex] 4 mg PO BID PRN PRN Reason: Muscle Spasm Sennosides [Senokot] 8.6 mg PO DAILY PRN PRN Reason: Constipation Terazosin HCl 5 mg PO HS Metoprolol Succinate [Toprol XL] 25 mg PO DAILY Primidone [Mysoline] 25 mg PO DAILY Omeprazole [PriLOSEC] 40 mg PO DAILY Olopatadine HCl 1 drop BOTH EYES DAILY Lisinopril [Zestril] 2.5 mg PO DAILY INSULIN LISPRO (humaLOG) [humaLOG] 5 units SQ AC-TID PRN PRN Reason: blood sugar above 150 INSULIN LISPRO (humaLOG) [humaLOG] See Protocol SQ AC-TID PRN PRN Reason: blood sugar above 150 Gabapentin [Neurontin] 300 mg PO TID Furosemide [Lasix] 20 mg PO DAILY Fluticasone Nasal [place] [Flonase Nasal [place]] 2 spr EA NOSTRIL DAILY PRN PRN Reason: Allergy Symptoms DULoxetine HCL [Cymbalta] 60 mg PO DAILY Cromolyn 4% Eye Drops 1 drop BOTH EYES DAILY busPIRone HCL 10 mg PO BID Atorvastatin [Lipitor] 40 mg PO HS predniSONE See Taper PO DAILY Discharge Medication List Cevimeline [Evoxac] 30 mg PO BID 04/29/14 [History] valACYclovir [Valtrex] 500 mg PO DIRECTED 12/01/17 [History] Nitroglycerin Sl Tabs [Nitrostat] 0.4 mg SUBLINGUAL Q5M PRN tab 01/11/18 [Rx] Insulin Glargine,Hum.rec.anlog [Lantus Solostar] 10 unit SQ HS 07/18/18 [History] rOPINIRole HCL [Requip] 0.25 mg PO HS 07/18/18 [History] Loratadine [Claritin] 10 mg PO DAILY PRN 02/01/19 [History] Hydrocodone/Acetaminophen [Glasco 10-325] 1 tab PO TID PRN 03/25/19 [History] Memantine [Namenda] 10 mg PO BID 03/25/19 [History] Zolpidem [Ambien] 5 mg PO HS PRN tab 03/27/19 [Rx] Dabigatran [Pradaxa] 150 mg PO BID #60 capsule 05/13/19 [Rx] Atorvastatin [Lipitor] 40 mg PO HS 11/02/19 [History] Cromolyn 4% Eye Drops 1 drop BOTH EYES DAILY 11/02/19 [History] DULoxetine HCL [Cymbalta] 60 mg PO DAILY 11/02/19 [History] Fluticasone Nasal [place] [Flonase Nasal [place]] 2 spr EA NOSTRIL DAILY PRN 11/02/19 [History] Furosemide [Lasix] 20 mg PO DAILY 11/02/19 [History] Gabapentin [Neurontin] 300 mg PO TID 11/02/19 [History] INSULIN LISPRO (humaLOG) [humaLOG] 5 units SQ AC-TID PRN 11/02/19 [History] INSULIN LISPRO (humaLOG) [humaLOG] See Protocol SQ AC-TID PRN 11/02/19 [History] Lisinopril [Zestril] 2.5 mg PO DAILY 11/02/19 [History] Metoprolol Succinate [Toprol XL] 25 mg PO DAILY 11/02/19 [History] Olopatadine HCl 1 drop BOTH EYES DAILY 11/02/19 [History] Omeprazole [PriLOSEC] 40 mg PO DAILY 11/02/19 [History] Primidone [Mysoline] 25 mg PO DAILY 11/02/19 [History] Sennosides [Senokot] 8.6 mg PO DAILY PRN 11/02/19 [History] Terazosin HCl 5 mg PO HS 11/02/19 [History] busPIRone HCL 10 mg PO BID 11/02/19 [History] tiZANidine [Zanaflex] 4 mg PO BID PRN 11/02/19 [History] valACYclovir HCL [Valtrex] 1 g PO TID 11/02/19 [History] predniSONE See Taper PO DAILY 11/03/19 [History] Aspirin 81 mg PO DAILY #30 chewable 11/04/19 [Rx] Follow up Appointment(s)/Referral(s): Licensed Audiologistdr [Other] - 1 Week Edwin Ferraro MD [STAFF PHYSICIAN] - 11/14/19 4:15 pm Ziyad Julian DO [Primary Care Provider] - 1 Week Noemi Alfonso MD [STAFF PHYSICIAN] - 1 Week Patient Instructions/Handouts: Chest Pain (DC) Activity/Diet/Wound Care/Special Instructions: Pt states she is known to Dr Alfonso & will schedule a follow up soon. Discharge Disposition: HOME SELF-CARE
[2019-11-07] MEDS ORDERED: valACYclovir 500 MG TAB PO SCH (09:00)
== END 2019-11-04 14:46 | disposition home or self-care (01) | DRG 547 ==
LOC: EC 19:48 → 3SCARD 22:24 → OBSVTOIN 11-04 10:17
PROVIDERS: ADMIT Hospitalist; ATTEND Hospitalist
DX: M06.9 Rheumatoid arthritis, unspecified (principal); R07.89 Other chest pain; E11.42 Type 2 diabetes mellitus with diabetic polyneuropathy; I25.10 Atherosclerotic heart disease of native coronary artery without angina pectoris; E78.00 Pure hypercholesterolemia, unspecified; D64.9 Anemia, unspecified; E66.9 Obesity, unspecified; M79.7 Fibromyalgia; E78.5 Hyperlipidemia, unspecified; I10 Essential (primary) hypertension; I08.0 Rheumatic disorders of both mitral and aortic valves; N20.0 Calculus of kidney; M19.90 Unspecified osteoarthritis, unspecified site; G89.29 Other chronic pain; I25.2 Old myocardial infarction; M54.9 Dorsalgia, unspecified; F32.9 Major depressive disorder, single episode, unspecified; K44.9 Diaphragmatic hernia without obstruction or gangrene; K64.9 Unspecified hemorrhoids; K57.90 Diverticulosis of intestine, part unspecified, without perforation or abscess without bleeding; Z68.32 Body mass index [BMI] 32.0-32.9, adult; K58.1 Irritable bowel syndrome with constipation; Z79.01 Long term (current) use of anticoagulants; Z79.4 Long term (current) use of insulin; Z79.899 Other long term (current) drug therapy; Z87.891 Personal history of nicotine dependence; Z95.5 Presence of coronary angioplasty implant and graft; Z85.828 Personal history of other malignant neoplasm of skin; Z90.49 Acquired absence of other specified parts of digestive tract; Z90.710 Acquired absence of both cervix and uterus; Z86.19 Personal history of other infectious and parasitic diseases; Z98.890 Other specified postprocedural states; Z98.42 Cataract extraction status, left eye; Z98.41 Cataract extraction status, right eye; Z86.2 Personal history of diseases of the blood and blood-forming organs and certain disorders involving the immune mechanism; Z86.73 Personal history of transient ischemic attack (TIA), and cerebral infarction without residual deficits; Z86.718 Personal history of other venous thrombosis and embolism; Z91.040 Latex allergy status; Z88.2 Allergy status to sulfonamides; Z88.8 Allergy status to other drugs, medicaments and biological substances; Z91.048 Other nonmedicinal substance allergy status
CPT/HCPCS: 36415; 71046; 71275; 78452; 80053; 80061; 82150; 83036; 83690; 83735; 83880; 84484; 85025; 85379; 85610; 85730; 93005; 93017; 93306; 99285

== ENCOUNTER 2019-12-13 19:02 | Inpatient (IN) | payer MEDICARE ==
[2019-12-13 19:51] LABS: Basophils # (A) 0.1 k/uL (0-0.2); Basophils % (A) 1 %; Eosinophils # (A) 0.2 k/uL (0-0.7); Eosinophils % (A) 3 %; HCT 35.8 % (34.0-46.0); HGB 11.7 gm/dL (11.4-16.0); Lymphocytes # (A) 2.1 k/uL (1.0-4.8); Lymphocytes % (A) 29 %; MCH 27.9 pg (25.0-35.0); MCHC 32.6 g/dL (31.0-37.0); MCV 85.7 fL (80.0-100.0); Mean Platelet Volume 7.8; Monocytes # (A) 0.5 k/uL (0-1.0); Monocytes % (A) 7 %; Neutrophils # (A) 4.5 k/uL (1.3-7.7); Neutrophils % (A) 59 %; Platelet Count 228 k/uL (150-450); RBC 4.18 m/uL (3.80-5.40); RDW 14.8 % (11.5-15.5); WBC 7.5 k/uL (3.8-10.6)
--- NOTE | 2019-12-13 20:01 | XR ---
EXAMINATION TYPE: XR chest 2V DATE OF EXAM: 12/13/2019 COMPARISON: 11/02/2019 HISTORY: Evaluate for congestive heart failure. Shortness of breath. TECHNIQUE: Frontal and lateral views of the chest are obtained. FINDINGS: There is no focal air space opacity, pleural effusion, or pneumothorax seen. The cardiac silhouette size is mildly enlarged. Coronary artery stent is seen. The osseous structures are intact . Cholecystectomy clips, right humeral surgical anchor and cervical spinal fusion changes are seen. IMPRESSION: Chronic changes with no acute cardiopulmonary process.
[2019-12-13 20:06] LABS: INR 1.1 (<1.2); Partial Thromboplastin Time 35.1 sec (22.0-30.0); Prothrombin Time 11.6 sec (9.0-12.0)
[2019-12-13 20:15] LABS: Appearance,Urine Clear (Clear); Bilirubin,Urine Negative (Negative); Blood,Urine Negative (Negative); Color,Urine Light Yellow; Glucose,Urine (UA) Negative (Negative); Ketones,Urine Negative (Negative); Leukocyte Esterase,Urine Negative (Negative); Nitrite,Urine Negative (Negative); Protein,Urine Negative (Negative); Specific Gravity,Urine 1.008 (1.001-1.035); Urobilinogen,Urine <2.0 mg/dL (<2.0)
[2019-12-13 20:31] LABS: ALT 14 U/L (4-34); AST 21 U/L (14-36); African American GFR (CKD) >90 (>60 ml/min/1.73 sqM); Albumin 3.8 g/dL (3.5-5.0); Alkaline Phosphatase 66 U/L (38-126); Anion Gap 11 mmol/L; Blood Urea Nitrogen 13 mg/dL (7-17); Calcium 9.1 mg/dL (8.4-10.2); Carbon Dioxide 22 mmol/L (22-30); Chloride 104 mmol/L (98-107); Glucose 131 mg/dL (74-99); Magnesium 1.8 mg/dL (1.6-2.3); Non-African American GFR(CKD) 87 (>60 ml/min/1.73 sqM); Phosphorus 4.4 mg/dL (2.5-4.5); Potassium 4.2 mmol/L (3.5-5.1); Sodium 137 mmol/L (137-145); Total Bilirubin 0.3 mg/dL (0.2-1.3); Total Protein 6.5 g/dL (6.3-8.2)
--- NOTE | 2019-12-13 20:46 | ED ---
General Adult HPI - General Chief complaint: Extremity Injury, Lower Stated complaint: Leg swelling Time Seen by Provider: 12/13/19 19:19 Source: patient, RN notes reviewed, old records reviewed Mode of arrival: wheelchair Limitations: no limitations - History of Present Illness Initial comments: 78-year-old female patient past medical history coronary artery disease, DVT for she is currently anticoagulated presents to ED for evaluation of bilateral lower extremity pain. Reports that both of her legs are swollen on her causing her pain. Reports that her right one is worse than it is in the posterior calf and posterior hamstring region. Denies any chest pain or shortness of breath. Denies any other complaints at this time. Systemic: Pt denies fatigue, fever/chills, rash. Pt denies weakness, night sweats, weight loss. Neuro: Pt denies headache, visual disturbances, syncope or pre-syncope. HEENT: Pt denies ocular discharge or irritation, otalgia, rhinorrhea, pharyngitis or notable lymphadenopathy. Cardiopulmonary: Pt denies chest pain, SOB, heart palpitations, dyspnea on exertion. Abdominal/GI: Pt denies abdominal pain, n/v/d. : Pt denies dysuria, burning w/ urination, frequency/urgency. Denies new onset urinary or bowel incontinence. MSK: Pt denies loss of strength or function in extremities. Neuro: Pt denies new onset weakness, paresthesias. - Related Data Home Medications Medication Instructions Recorded Confirmed Cevimeline [Evoxac] 30 mg PO BID 04/29/14 11/02/19 valACYclovir [Valtrex] 500 mg PO DIRECTED 12/01/17 11/02/19 Insulin Glargine,Hum.rec.anlog 10 unit SQ HS 07/18/18 11/02/19 [Lantus Solostar] rOPINIRole HCL [Requip] 0.25 mg PO HS 07/18/18 11/02/19 Loratadine [Claritin] 10 mg PO DAILY PRN 02/01/19 11/02/19 Hydrocodone/Acetaminophen [[place] 1 tab PO TID PRN 03/25/19 11/02/19 10-325] Memantine [Namenda] 10 mg PO BID 03/25/19 11/02/19 Atorvastatin [Lipitor] 40 mg PO HS 11/02/19 11/02/19 Cromolyn 4% Eye Drops 1 drop BOTH EYES DAILY 11/02/19 11/03/19 DULoxetine HCL [Cymbalta] 60 mg PO DAILY 11/02/19 11/02/19 Fluticasone Nasal [place] [Flonase 2 spr EA NOSTRIL DAILY PRN 11/02/19 11/02/19 Nasal [place]] Furosemide [Lasix] 20 mg PO DAILY 11/02/19 11/02/19 Gabapentin [Neurontin] 300 mg PO TID 11/02/19 11/02/19 INSULIN LISPRO (humaLOG) [humaLOG] 5 units SQ AC-TID PRN 11/02/19 11/02/19 INSULIN LISPRO (humaLOG) [humaLOG] See Protocol SQ AC-TID PRN 11/02/19 11/02/19 Lisinopril [Zestril] 2.5 mg PO DAILY 11/02/19 11/02/19 Metoprolol Succinate [Toprol XL] 25 mg PO DAILY 11/02/19 11/02/19 Olopatadine HCl 1 drop BOTH EYES DAILY 11/02/19 11/03/19 Omeprazole [PriLOSEC] 40 mg PO DAILY 11/02/19 11/02/19 Primidone [Mysoline] 25 mg PO DAILY 11/02/19 11/02/19 Sennosides [Senokot] 8.6 mg PO DAILY PRN 11/02/19 11/02/19 Terazosin HCl 5 mg PO HS 11/02/19 11/02/19 busPIRone HCL 10 mg PO BID 11/02/19 11/02/19 tiZANidine [Zanaflex] 4 mg PO BID PRN 11/02/19 11/02/19 valACYclovir HCL [Valtrex] 1 g PO TID 11/02/19 11/02/19 predniSONE See Taper PO DAILY 11/03/19 11/03/19 Previous Rx's Medication Instructions Recorded Nitroglycerin Sl Tabs [Nitrostat] 0.4 mg SUBLINGUAL Q5M PRN tab 01/11/18 Zolpidem [Ambien] 5 mg PO HS PRN tab 03/27/19 Dabigatran [Pradaxa] 150 mg PO BID #60 capsule 05/13/19 Aspirin 81 mg PO DAILY #30 chewable 11/04/19 Allergies Allergy/AdvReac Type Severity Reaction Status Date / Time etanercept [From Enbrel] Allergy Rash/Hives Verified 12/13/19 19:14 hydroxyzine [From Atarax] Allergy Unknown Verified 12/13/19 19:15 latex Allergy Itching Verified 12/13/19 19:14 Sulfa (Sulfonamide Allergy Rash/Hives Verified 12/13/19 19:14 Antibiotics) tape Allergy Rash/Hives Uncoded 12/13/19 19:14 Review of Systems ROS Statement: Those systems with pertinent positive or pertinent negative responses have been documented in the HPI. ROS Other: All systems not noted in ROS Statement are negative. Past Medical History Past Medical History: Coronary Artery Disease (CAD), Chest Pain / Angina, CVA/TIA, Diabetes Mellitus, Deep Vein Thrombosis (DVT), Eye Disorder, Fibromyalgia, Hyperlipidemia, Hypertension, Myocardial Infarction (OH), Osteoarthritis (OA), Rheumatoid Arthritis (RA) Additional Past Medical History / Comment(s): "Leaky" heart valve, NIDDM type II, neuropathy R hand and feet, DVT R calf, chronic pain, chronic back pain, DDD, anemia, hiatal hernia, hemorrhoids, IBS, diverticulosis, constipation, sinus problems, falls, skin cancer with removal, shingelle "break outs" Last Myocardial Infarction Date:: 2017 History of Any Multi-Drug Resistant Organisms: None Reported Past Surgical History: Appendectomy, Cholecystectomy, Heart Catheterization, Heart Catheterization With Stent, Hernia Repair, Hysterectomy, Tonsillectomy Additional Past Surgical History / Comment(s): PCI with multiple stents(6-7), ventral hernia repair, colonoscopy, bilateral cataract removals, skin cancer removals. Past Anesthesia/Blood Transfusion Reactions: No Reported Reaction Date of Last Stent Placement:: 2017 Past Psychological History: Depression Smoking Status: Never smoker Past Alcohol Use History: None Reported Past Drug Use History: None Reported - Past Family History Father Additional Family Medical History / Comment(s): pt stated had heart issues, but not sure what Mother Additional Family Medical History / Comment(s): leaking valve General Exam - General Exam Comments Initial Comments: Constitutional: NAD, AOX3, Pt has pleasant affect. HEENT: NC/AT, trachea midline, neck supple, no lymphadenopathy. Posterior pharynx non erythematous, without exudates. External ears appear normal, without discharge. Mucous membranes moist. Eyes PERRLA, EOM intact. There is no scleral icterus. No pallor noted. Cardiopulmonary: RRR, no murmurs, rubs or gallops, no JVD noted. Lungs CTAB in anterior and posterior staley. +1 peripheral edema. Abdominal exam: Abdomen soft and non-distended. Abdomen non-tender to palpation in all 4 quadrants. Bowel sounds active in LLQ. No hepatosplenomegaly. No ecchymosis Neuro: CN II-XII grossly intact. No nuchal rigidity. No raccon eyes, no machado sign, no hemotympanum. No cervical spinal tenderness. MSK: Bilateral posterior calf tenderness. tenderness bilaterally, homans sign positive bilaterally. Posterior tibialis and radial pulse +1 bilaterally. Sensation intact in upper and lower extremities. Full active ROM in upper and lower extremities, 5/5 stregnth. Limitations: no limitations Course Vital Signs 12/13/19 12/13/19 12/13/19 19:12 22:27 23:00 Temperature 98.4 F Pulse Rate 69 69 70 Respiratory 18 16 20 Rate Blood Pressure 149/77 123/61 139/64 O2 Sat by Pulse 98 97 97 Oximetry Medical Decision Making - Medical Decision Making 78-year-old female patient past medical history coronary artery disease, DVT for she is currently anticoagulated presents to ED for evaluation of bilateral lower extremity pain. Reports that both of her legs are swollen on her causing her pain. Reports that her right one is worse than it is in the posterior calf and posterior hamstring region. Denies any chest pain or shortness of breath. Denies any other complaints at this time. Patient will symptoms are stable, afebrile. Physical exam displayed: Bilateral posterior calf tenderness. tenderness bilaterally, homans sign positive bilaterally. Posterior tibialis and radial pulse +1 bilaterally. Laboratory investigations are non-impressive. Chest x-ray displayed no acute process. Ultrasound displayed negative right leg for DVT. Left leg is positive for proximal femoral and posterior vein and distal femoral DVT. Case was discussed with vascular surgeon Dr. Mancini who reccomends high intensity heparinzation and admission. Pt will be admitted to Dr. aCtherine SOCIAL DIRECTOR accepts case. Case discussed with Dr. Collier. - Lab Data Result diagrams: 12/13/19 23:08 12/13/19 19:44 Lab Results 12/13/19 12/13/1912/12/20 Range/Units 19:24 19:44 19:44 WBC 7.5 (3.8-10.6) k/uL RBC 4.18 (3.80-5.40) m/uL Hgb 11.7 (11.4-16.0) gm/dL Hct 35.8 (34.0-46.0) % MCV 85.7 (80.0-100.0) fL MCH 27.9 (25.0-35.0) pg MCHC 32.6 (31.0-37.0) g/dL RDW 14.8 (11.5-15.5) % Plt Count 228 (150-450) k/uL Neutrophils % 59 % Lymphocytes % 29 % Monocytes % 7 % Eosinophils % 3 % Basophils % 1 % Neutrophils # 4.5 (1.3-7.7) k/uL Lymphocytes # 2.1 (1.0-4.8) k/uL Monocytes # 0.5 (0-1.0) k/uL Eosinophils # 0.2 (0-0.7) k/uL Basophils # 0.1 (0-0.2) k/uL PT (9.0-12.0) sec INR (<1.2) APTT (22.0-30.0) sec Sodium 137 (137-145) mmol/L Potassium 4.2 (3.5-5.1) mmol/L Chloride 104 (98-107) mmol/L Carbon Dioxide 22 (22-30) mmol/L Anion Gap 11 mmol/L BUN 13 (7-17) mg/dL Creatinine 0.62 (0.52-1.04) mg/dL Est GFR (CKD-EPI)AfAm >90 (>60 ml/min/1.73 sqM) Est GFR (CKD-EPI)NonAf 87 (>60 ml/min/1.73 sqM) Glucose 131 H (74-99) mg/dL Calcium 9.1 (8.4-10.2) mg/dL Phosphorus 4.4 (2.5-4.5) mg/dL Magnesium 1.8 (1.6-2.3) mg/dL Total Bilirubin 0.3 (0.2-1.3) mg/dL AST 21 (14-36) U/L ALT 14 (4-34) U/L Alkaline Phosphatase 66 (38-126) U/L Troponin I (0.000-0.034) ng/mL NT-Pro-B Natriuret Pep pg/mL Total Protein 6.5 (6.3-8.2) g/dL Albumin 3.8 (3.5-5.0) g/dL Urine Color Light Yellow Urine Appearance Clear (Clear) Urine pH 7.0 (5.0-8.0) Ur Specific [place] 1.008 (1.001-1.035) Urine Protein Negative (Negative) Urine Glucose (UA) Negative (Negative) Urine Ketones Negative (Negative) Urine Blood Negative (Negative) Urine Nitrite Negative (Negative) Urine Bilirubin Negative (Negative) Urine Urobilinogen <2.0 (<2.0) mg/dL Ur Leukocyte Esterase Negative (Negative) 12/13/19 12/13/19 12/13/19 Range/Units 19:44 19:44 19:45 WBC (3.8-10.6) k/uL RBC (3.80-5.40) m/uL Hgb (11.4-16.0) gm/dL Hct (34.0-46.0) % MCV (80.0-100.0) fL MCH (25.0-35.0) pg MCHC (31.0-37.0) g/dL RDW (11.5-15.5) % Plt Count (150-450) k/uL Neutrophils % % Lymphocytes % % Monocytes % % Eosinophils % % Basophils % % Neutrophils # (1.3-7.7) k/uL Lymphocytes # (1.0-4.8) k/uL Monocytes # (0-1.0) k/uL Eosinophils # (0-0.7) k/uL Basophils # (0-0.2) k/uL PT 11.6 (9.0-12.0) sec INR 1.1 (<1.2) APTT 35.1 H (22.0-30.0) sec Sodium (137-145) mmol/L Potassium (3.5-5.1) mmol/L Chloride (98-107) mmol/L Carbon Dioxide (22-30) mmol/L Anion Gap mmol/L BUN (7-17) mg/dL Creatinine (0.52-1.04) mg/dL Est GFR (CKD-EPI)AfAm (>60 ml/min/1.73 sqM) Est GFR (CKD-EPI)NonAf (>60 ml/min/1.73 sqM) Glucose (74-99) mg/dL Calcium (8.4-10.2) mg/dL Phosphorus (2.5-4.5) mg/dL Magnesium (1.6-2.3) mg/dL Total Bilirubin (0.2-1.3) mg/dL AST (14-36) U/L ALT (4-34) U/L Alkaline Phosphatase (38-126) U/L Troponin I 0.012 (0.000-0.034) ng/mL NT-Pro-B Natriuret Pep 4240 pg/mL Total Protein (6.3-8.2) g/dL Albumin (3.5-5.0) g/dL Urine Color Urine Appearance (Clear) Urine pH (5.0-8.0) Ur Specific [place] (1.001-1.035) Urine Protein (Negative) Urine Glucose (UA) (Negative) Urine Ketones (Negative) Urine Blood (Negative) Urine Nitrite (Negative) Urine Bilirubin (Negative) Urine Urobilinogen (<2.0) mg/dL Ur Leukocyte Esterase (Negative) 12/13/19 Range/Units 23:08 WBC 7.3 (3.8-10.6) k/uL RBC 3.86 (3.80-5.40) m/uL Hgb 10.9 L (11.4-16.0) gm/dL Hct 33.7 L (34.0-46.0) % MCV 87.3 (80.0-100.0) fL MCH 28.4 (25.0-35.0) pg MCHC 32.5 (31.0-37.0) g/dL RDW 15.1 (11.5-15.5) % Plt Count 221 (150-450) k/uL Neutrophils % 51 % Lymphocytes % 38 % Monocytes % 6 % Eosinophils % 3 % Basophils % 1 % Neutrophils # 3.7 (1.3-7.7) k/uL Lymphocytes # 2.8 (1.0-4.8) k/uL Monocytes # 0.5 (0-1.0) k/uL Eosinophils # 0.2 (0-0.7) k/uL Basophils # 0.1 (0-0.2) k/uL PT (9.0-12.0) sec INR (<1.2) APTT (22.0-30.0) sec Sodium (137-145) mmol/L Potassium (3.5-5.1) mmol/L Chloride (98-107) mmol/L Carbon Dioxide (22-30) mmol/L Anion Gap mmol/L BUN (7-17) mg/dL Creatinine (0.52-1.04) mg/dL Est GFR (CKD-EPI)AfAm (>60 ml/min/1.73 sqM) Est GFR (CKD-EPI)NonAf (>60 ml/min/1.73 sqM) Glucose (74-99) mg/dL Calcium (8.4-10.2) mg/dL Phosphorus (2.5-4.5) mg/dL Magnesium (1.6-2.3) mg/dL Total Bilirubin (0.2-1.3) mg/dL AST (14-36) U/L ALT (4-34) U/L Alkaline Phosphatase (38-126) U/L Troponin I (0.000-0.034) ng/mL NT-Pro-B Natriuret Pep pg/mL Total Protein (6.3-8.2) g/dL Albumin (3.5-5.0) g/dL Urine Color Urine Appearance (Clear) Urine pH (5.0-8.0) Ur Specific [place] (1.001-1.035) Urine Protein (Negative) Urine Glucose (UA) (Negative) Urine Ketones (Negative) Urine Blood (Negative) Urine Nitrite (Negative) Urine Bilirubin (Negative) Urine Urobilinogen (<2.0) mg/dL Ur Leukocyte Esterase (Negative) - EKG Data -: EKG Interpreted by Me EKG Comments: Ventricular rate 73, CT interval 196, QRS 84, QT/QTc 424/467. Normal sinus rhythm, low voltage QRS, borderline EKG. Disposition Clinical Impression: Acute DVT (deep venous thrombosis) Disposition: ADMITTED IP TO THIS [facility] Condition: Serious Is patient prescribed a controlled substance at d/c from ED?: No
[2019-12-13] MEDS ORDERED: MORPHINE SULFATE 4 MG/ML SYRINGE IV STA (20:55)
[2019-12-13] MEDS ORDERED: diphenhydrAMINE 50 MG/ML 1 ML VIAL IVP STA ×2 (21:05→22:41)
--- NOTE | 2019-12-13 21:31 | US ---
EXAMINATION TYPE: US venous doppler duplex LE DATE OF EXAM: 12/13/2019 8:57 PM COMPARISON: US 2019 CLINICAL HISTORY: r/o chf . Bilateral leg pain and swelling, history of DVT, patient on blood thinner s SIDE PERFORMED: Bilateral TECHNIQUE: The lower extremity deep venous system is examined utilizing real time linear array sonog lauren with graded compression, doppler sonography and color-flow sonography. VESSELS IMAGED: External Iliac Vein (EIV) Common Femoral Vein Deep Femoral Vein Greater Saphenous Vein * Femoral Vein Popliteal Vein Small Saphenous Vein * Proximal Calf Veins (* superficial vessels) Right Leg: Appears negative for DVT Left Leg: Appears positive for DVT proximal femoral vein and posterior vein of duel mid and distal f emoral vein with no flow seen and unable to compress, also unable to compress proximal popliteal vein IMPRESSION: There is acute deep vein thrombosis in the left leg.
[2019-12-13] MEDS ORDERED: HEPARIN SODIUM,PORCINE 10,000 UNIT/ML 1 ML VIAL IV ONE (22:19)
[2019-12-13] MEDS ORDERED: HEPARIN SODIUM,PORCINE 5,000 UNIT/ML 1 ML VIAL IV PRN (22:19)
[2019-12-13] MEDS ORDERED: HEPARIN SOD,PORK IN 0.45% NACL 25,000 UNIT in 0.45% NACL 1 250ML.BAG IV SCH (22:30)
[2019-12-13] MEDS ORDERED: MORPHINE SULFATE 4 MG/ML SYRINGE IV PRN (23:15)
[2019-12-13] MEDS ORDERED: NALOXONE 0.4 MG/ML 1 ML VIAL IV PRN (23:15)
[2019-12-13 23:43] LABS: Basophils # (A) 0.1 k/uL (0-0.2); Basophils % (A) 1 %; Eosinophils # (A) 0.2 k/uL (0-0.7); Eosinophils % (A) 3 %; HCT 33.7 % (34.0-46.0); HGB 10.9 gm/dL (11.4-16.0); Lymphocytes # (A) 2.8 k/uL (1.0-4.8); Lymphocytes % (A) 38 %; MCH 28.4 pg (25.0-35.0); MCHC 32.5 g/dL (31.0-37.0); MCV 87.3 fL (80.0-100.0); Mean Platelet Volume 7.7; Monocytes # (A) 0.5 k/uL (0-1.0); Monocytes % (A) 6 %; Neutrophils # (A) 3.7 k/uL (1.3-7.7); Neutrophils % (A) 51 %; Platelet Count 221 k/uL (150-450); RBC 3.86 m/uL (3.80-5.40); RDW 15.1 % (11.5-15.5); WBC 7.3 k/uL (3.8-10.6)
[2019-12-14 00:19] LABS: INR 1.3 (<1.2); Partial Thromboplastin Time >200.0 sec (22.0-30.0)
[2019-12-14 01:05] VITALS: RESP 16
[2019-12-14 03:50] LABS: Basophils % (A) 1 %; Eosinophils # (A) 0.2 k/uL (0-0.7); Eosinophils % (A) 3 %; HCT 34.2 % (34.0-46.0); HGB 11.1 gm/dL (11.4-16.0); Lymphocytes # (A) 3.1 k/uL (1.0-4.8); Lymphocytes % (A) 43 %; MCH 28.2 pg (25.0-35.0); MCHC 32.4 g/dL (31.0-37.0); Mean Platelet Volume 7.7; Monocytes # (A) 0.4 k/uL (0-1.0); Monocytes % (A) 6 %; Neutrophils # (A) 3.3 k/uL (1.3-7.7); Neutrophils % (A) 46 %; Platelet Count 191 k/uL (150-450); RBC 3.93 m/uL (3.80-5.40); RDW 14.8 % (11.5-15.5); WBC 7.2 k/uL (3.8-10.6)
[2019-12-14 07:08] LABS: Glucose,Whole Blood 177 mg/dL (75-99)
[2019-12-14] MEDS: INSULIN ASPART (NovoLOG) 100 UNIT/ML VIAL SQ SCH ×2 (07:12→12:22)
--- NOTE | 2019-12-14 10:27 | P.GSCN ---
History of Present Illness Consult date: 12/14/19 Reason for Consult: Deep venous thrombosis left lower extremity Requesting physician: Ivette Catherine History of present illness: Patient is a 78-year-old female who is evaluated in reference to a history of deep venous thrombosis affecting her left lower extremity. This was originally documented in April of last year. Since that time the patient has been operated ask. She presented to the hospital yesterday with a complaint of bilateral lower extremity edema. This is been ongoing for 5-7 days prior to her presentation to the hospital. She denied any shortness of breath or any other significant changes in her health. She indicates that the swelling of her legs is most pronounced in the afternoon hours at least noticeable upon arising in the morning. She does not wear support hose nor does she make any significant attempt to elevate her legs while not ambulatory. Since her admission to the hospital the patient admits that her leg edema has markedly diminished. She denies any leg pain at this time. Impression: #1: Chronic venous changes left femoral popliteal venous segments consistent with a history of deep venous thrombosis. #2: Mild postphlebitic syndrome left lower extremity. Recommendation: #1: The patient would benefit by the use of 15-20 mm gradient knee high support hose to help reduce leg edema. #2: There is no indication for vena caval interruption at this time. #3: I would be happy to follow this patient in the office as an outpatient. Card was given to patient. #4: I would be happy to reevaluate this patient at your request during her hospital stay. Past Medical History Past Medical History: Coronary Artery Disease (CAD), Chest Pain / Angina, CVA/TIA, Diabetes Mellitus, Deep Vein Thrombosis (DVT), Eye Disorder, Fibromyalgia, Hyperlipidemia, Hypertension, Myocardial Infarction (ND), Osteoarthritis (OA), Rheumatoid Arthritis (RA) Additional Past Medical History / Comment(s): "Leaky" heart valve, NIDDM type II, neuropathy R hand and feet, DVT R calf, chronic pain, chronic back pain, DDD, anemia, hiatal hernia, hemorrhoids, IBS, diverticulosis, constipation, sinus problems, falls, skin cancer with removal, shingelle "break outs," skin itching (whole body) "like a prickly itch" started 6 months ago Last Myocardial Infarction Date:: 2017 History of Any Multi-Drug Resistant Organisms: None Reported Past Surgical History: Appendectomy, Cholecystectomy, Heart Catheterization, Heart Catheterization With Stent, Hernia Repair, Hysterectomy, Tonsillectomy Additional Past Surgical History / Comment(s): PCI with multiple stents(6-7), ventral hernia repair, colonoscopy, bilateral cataract removals, skin cancer removals. Past Anesthesia/Blood Transfusion Reactions: No Reported Reaction Date of Last Stent Placement:: 2017 Past Psychological History: Depression Smoking Status: Never smoker Past Alcohol Use History: None Reported Additional Past Alcohol Use History / Comment(s): Pt started smoking in 1960 and quit in 1980. Past Drug Use History: None Reported - Past Family History Father Additional Family Medical History / Comment(s): pt stated had heart issues, but not sure what Mother Additional Family Medical History / Comment(s): leaking valve Medications and Allergies Home Medications Medication Instructions Recorded Confirmed Type Cevimeline [Evoxac] 30 mg PO BID 04/29/14 12/14/19 History valACYclovir [Valtrex] 500 mg PO DAILY 12/01/17 12/14/19 History Nitroglycerin Sl Tabs [Nitrostat] 0.4 mg SUBLINGUAL Q5M PRN tab 01/11/18 12/14/19 Rx Insulin Glargine,Hum.rec.anlog 10 unit SQ HS 07/18/18 12/14/19 History [Lantus Solostar] rOPINIRole HCL [Requip] 0.25 mg PO HS 07/18/18 12/14/19 History Loratadine [Claritin] 10 mg PO DAILY PRN 02/01/19 12/14/19 History Hydrocodone/Acetaminophen [[place] 1 tab PO TID PRN 03/25/19 12/14/19 History 10-325] Memantine [Namenda] 10 mg PO BID 03/25/19 12/14/19 History Zolpidem [Ambien] 5 mg PO HS PRN tab 03/27/19 12/14/19 Rx Dabigatran [Pradaxa] 150 mg PO BID #60 capsule 05/13/19 12/14/19 Rx Atorvastatin [Lipitor] 40 mg PO HS 11/02/19 12/14/19 History Cromolyn 4% Eye Drops 1 drop BOTH EYES DAILY 11/02/19 12/14/19 History DULoxetine HCL [Cymbalta] 60 mg PO DAILY 11/02/19 12/14/19 History Fluticasone Nasal [place] [Flonase 2 spr EA NOSTRIL DAILY PRN 11/02/19 12/14/19 History Nasal [place]] Furosemide [Lasix] 20 mg PO DAILY 11/02/19 12/14/19 History Gabapentin [Neurontin] 300 mg PO TID 11/02/19 12/14/19 History Lisinopril [Zestril] 2.5 mg PO DAILY 11/02/19 12/14/19 History Metoprolol Succinate [Toprol XL] 25 mg PO DAILY 11/02/19 12/14/19 History Olopatadine HCl 1 drop BOTH EYES DAILY 11/02/19 12/14/19 History Omeprazole [PriLOSEC] 40 mg PO DAILY 11/02/19 12/14/19 History Primidone [Mysoline] 25 mg PO DAILY 11/02/19 12/14/19 History Sennosides [Senokot] 8.6 mg PO DAILY PRN 11/02/19 12/14/19 History busPIRone HCL 10 mg PO BID 11/02/19 12/14/19 History tiZANidine [Zanaflex] 4 mg PO BID PRN 11/02/19 12/14/19 History predniSONE See Taper PO DAILY 11/03/19 12/14/19 History Aspirin 81 mg PO DAILY #30 chewable 11/04/19 12/14/19 Rx Insulin Lispro [humaLOG Kwikpen] 5 unit SQ AC-TID 12/14/19 12/14/19 History Insulin Lispro [humaLOG Kwikpen] See Protocol SQ AC-TID 12/14/19 12/14/19 History Terazosin [Hytrin] 1 mg PO HS 12/14/19 12/14/19 History Allergies Allergy/AdvReac Type Severity Reaction Status Date / Time etanercept [From Enbrel] Allergy Rash/Hives Verified 12/14/19 08:58 hydroxyzine [From Atarax] Allergy Unknown Verified 12/14/19 08:58 latex Allergy Itching Verified 12/14/19 08:58 Sulfa (Sulfonamide Allergy Rash/Hives Verified 12/14/19 08:58 Antibiotics) tape Allergy Rash/Hives Uncoded 12/14/19 08:58 Surgical - Exam Osteopathic Statement: *. No significant issues noted on an osteopathic structural exam other than those noted in the History and Physical/Consult. Vital Signs Temp Pulse Resp BP Pulse Ox 98.4 F 69 18 149/77 98 12/13/19 19:12 12/13/19 19:12 12/13/19 19:12 12/13/19 19:12 12/13/19 19:12 - General well developed, well nourished, no distress - Neck no masses, no bruits, trachea midline, no lymphadectomy, no venous distension - Respiratory normal expansion, normal respiratory effort, clear to auscultation - Cardiovascular Rhythm: regular - Abdomen Abdomen: soft, non tender - Neurologic normal coordination, normal sensation Femoral, popliteal, dorsalis pedis and posterior tibial pulses are intact bilaterally. There is no cyanosis or edema via the lower extremity. Legs are nontender to palpation. I did review the results of the venous duplex performed upon her admission. This was compared to the duplex performed in April of last year. To my judgment there is no evidence of acute thrombus but rather findings consistent with chronic venous changes consistent with a history of deep venous thrombosis. Results - Labs 12/14/19 03:23 12/13/19 19:44 Abnormal Lab Results - Last 24 Hours (Table) 12/13/19 12/13/19 12/13/19 Range/Units 19:44 19:45 23:08 Hgb 10.9 L (11.4-16.0) gm/dL Hct 33.7 L (34.0-46.0) % PT (9.0-12.0) sec INR (<1.2) APTT 35.1 H (22.0-30.0) sec Glucose 131 H (74-99) mg/dL POC Glucose (mg/dL) (75-99) mg/dL 12/14/19 12/14/19 12/14/19 Range/Units 00:00 03:23 03:23 Hgb 11.1 L (11.4-16.0) gm/dL Hct (34.0-46.0) % PT 13.0 H (9.0-12.0) sec INR 1.3 H (<1.2) APTT >200.0 H* >200.0 H* (22.0-30.0) sec Glucose (74-99) mg/dL POC Glucose (mg/dL) (75-99) mg/dL 12/14/19 Range/Units 07:06 Hgb (11.4-16.0) gm/dL Hct (34.0-46.0) % PT (9.0-12.0) sec INR (<1.2) APTT (22.0-30.0) sec Glucose (74-99) mg/dL POC Glucose (mg/dL) 177 H (75-99) mg/dL Diabetes panel 12/13/19 Range/Units 19:44 Sodium 137 (137-145) mmol/L Potassium 4.2 (3.5-5.1) mmol/L Chloride 104 (98-107) mmol/L Carbon Dioxide 22 (22-30) mmol/L BUN 13 (7-17) mg/dL Creatinine 0.62 (0.52-1.04) mg/dL Glucose 131 H (74-99) mg/dL Calcium 9.1 (8.4-10.2) mg/dL AST 21 (14-36) U/L ALT 14 (4-34) U/L Alkaline Phosphatase 66 (38-126) U/L Total Protein 6.5 (6.3-8.2) g/dL Albumin 3.8 (3.5-5.0) g/dL Calcium panel 12/13/19 Range/Units 19:44 Calcium 9.1 (8.4-10.2) mg/dL Phosphorus 4.4 (2.5-4.5) mg/dL Albumin 3.8 (3.5-5.0) g/dL Pituitary panel 12/13/19 Range/Units 19:44 Sodium 137 (137-145) mmol/L Potassium 4.2 (3.5-5.1) mmol/L Chloride 104 (98-107) mmol/L Carbon Dioxide 22 (22-30) mmol/L BUN 13 (7-17) mg/dL Creatinine 0.62 (0.52-1.04) mg/dL Glucose 131 H (74-99) mg/dL Calcium 9.1 (8.4-10.2) mg/dL Adrenal panel 12/13/19 Range/Units 19:44 Sodium 137 (137-145) mmol/L Potassium 4.2 (3.5-5.1) mmol/L Chloride 104 (98-107) mmol/L Carbon Dioxide 22 (22-30) mmol/L BUN 13 (7-17) mg/dL Creatinine 0.62 (0.52-1.04) mg/dL Glucose 131 H (74-99) mg/dL Calcium 9.1 (8.4-10.2) mg/dL Total Bilirubin 0.3 (0.2-1.3) mg/dL AST 21 (14-36) U/L ALT 14 (4-34) U/L Alkaline Phosphatase 66 (38-126) U/L Total Protein 6.5 (6.3-8.2) g/dL Albumin 3.8 (3.5-5.0) g/dL
[2019-12-14 11:48] VITALS: BP 132/59; PULSE 73; TEMP 97.4
[2019-12-14 12:20] LABS: Glucose,Whole Blood 118 mg/dL (75-99)
--- NOTE | 2019-12-14 14:54 | P.HPIM ---
History of Present Illness 68-year-old female came in with complains of pedal edema and pain in both legs has been going on for some time patient was diagnosed with left lower limb DVT and patient is on Protonix for that. Patient had a repeat ultrasound which showed the same DVT but although it started as acute DVT because of age. Patient was started on IV heparin subsequently admitted to the hospital last for surgery was consulted. Patient appears to have chronic DVT rather rather and acute as that it was read. Patient may have some post phlebitic syndrome and pain secondary to that. Patient will benefit from compression socks same thing was counseled the patient patient will be given prescription for anti- inflammatory medications along with compression socks patient will be asked to elevate her legs for pedal edema patient is already on as needed Lasix at home patient will not need any more further hospital physician will be discharged to follow-up with PCP as an outpatient and doesn't have any chest pain patient doesn't have any shortness of breath at this time. Review of Systems REVIEW OF SYSTEMS: CONSTITUTIONAL: No fever, no malaise, no fatigue. HEENT: No recent visual problems or hearing problems. Denied any sore throat. CARDIOVASCULAR: No chest pain, orthopnea, PND, no palpitations, no syncope. PULMONARY: No shortness of breath, no cough, no hemoptysis. GASTROINTESTINAL: No diarrhea, no nausea, no vomiting, no abdominal pain. NEUROLOGICAL: No headaches, no weakness, no numbness. HEMATOLOGICAL: Denies any bleeding or petechiae. GENITOURINARY: Denies any burning micturition, frequency, or urgency. MUSCULOSKELETAL/RHEUMATOLOGICAL: Denies any joint pain, swelling, or any muscle pain. ENDOCRINE: Denies any polyuria or polydipsia. The rest of the 14-point review of systems is negative. Past Medical History Past Medical History: Coronary Artery Disease (CAD), Chest Pain / Angina, CVA/TIA, Diabetes Mellitus, Deep Vein Thrombosis (DVT), Eye Disorder, Fibromyalgia, Hyperlipidemia, Hypertension, Myocardial Infarction (MS), Osteoarthritis (OA), Rheumatoid Arthritis (RA) Additional Past Medical History / Comment(s): "Leaky" heart valve, NIDDM type II, neuropathy R hand and feet, DVT R calf, chronic pain, chronic back pain, DDD, anemia, hiatal hernia, hemorrhoids, IBS, diverticulosis, constipation, sinus problems, falls, skin cancer with removal, shingelle "break outs," skin itching (whole body) "like a prickly itch" started 6 months ago Last Myocardial Infarction Date:: 2017 History of Any Multi-Drug Resistant Organisms: None Reported Past Surgical History: Appendectomy, Cholecystectomy, Heart Catheterization, Heart Catheterization With Stent, Hernia Repair, Hysterectomy, Tonsillectomy Additional Past Surgical History / Comment(s): PCI with multiple stents(6-7), ventral hernia repair, colonoscopy, bilateral cataract removals, skin cancer removals. Past Anesthesia/Blood Transfusion Reactions: No Reported Reaction Date of Last Stent Placement:: 2017 Past Psychological History: Depression Smoking Status: Never smoker Past Alcohol Use History: None Reported Additional Past Alcohol Use History / Comment(s): Pt started smoking in 1960 and quit in 1980. Past Drug Use History: None Reported - Past Family History Father Additional Family Medical History / Comment(s): pt stated had heart issues, but not sure what Mother Additional Family Medical History / Comment(s): leaking valve Medications and Allergies Home Medications Medication Instructions Recorded Confirmed Type Cevimeline [Evoxac] 30 mg PO BID 04/29/14 12/14/19 History valACYclovir [Valtrex] 500 mg PO DAILY 12/01/17 12/14/19 History Nitroglycerin Sl Tabs [Nitrostat] 0.4 mg SUBLINGUAL Q5M PRN tab 01/11/18 12/14/19 Rx Insulin Glargine,Hum.rec.anlog 10 unit SQ HS 07/18/18 12/14/19 History [Lantus Solostar] rOPINIRole HCL [Requip] 0.25 mg PO HS 07/18/18 12/14/19 History Loratadine [Claritin] 10 mg PO DAILY PRN 02/01/19 12/14/19 History Hydrocodone/Acetaminophen [[place] 1 tab PO TID PRN 03/25/19 12/14/19 History 10-325] Memantine [Namenda] 10 mg PO BID 03/25/19 12/14/19 History Zolpidem [Ambien] 5 mg PO HS PRN tab 03/27/19 12/14/19 Rx Dabigatran [Pradaxa] 150 mg PO BID #60 capsule 05/13/19 12/14/19 Rx Atorvastatin [Lipitor] 40 mg PO HS 11/02/19 12/14/19 History Cromolyn 4% Eye Drops 1 drop BOTH EYES DAILY 11/02/19 12/14/19 History DULoxetine HCL [Cymbalta] 60 mg PO DAILY 11/02/19 12/14/19 History Fluticasone Nasal [place] [Flonase 2 spr EA NOSTRIL DAILY PRN 11/02/19 12/14/19 History Nasal [place]] Furosemide [Lasix] 20 mg PO DAILY 11/02/19 12/14/19 History Gabapentin [Neurontin] 300 mg PO TID 11/02/19 12/14/19 History Lisinopril [Zestril] 2.5 mg PO DAILY 11/02/19 12/14/19 History Metoprolol Succinate [Toprol XL] 25 mg PO DAILY 11/02/19 12/14/19 History Olopatadine HCl 1 drop BOTH EYES DAILY 11/02/19 12/14/19 History Omeprazole [PriLOSEC] 40 mg PO DAILY 11/02/19 12/14/19 History Primidone [Mysoline] 25 mg PO DAILY 11/02/19 12/14/19 History Sennosides [Senokot] 8.6 mg PO DAILY PRN 11/02/19 12/14/19 History busPIRone HCL 10 mg PO BID 11/02/19 12/14/19 History tiZANidine [Zanaflex] 4 mg PO BID PRN 11/02/19 12/14/19 History Aspirin 81 mg PO DAILY #30 chewable 11/04/19 12/14/19 Rx Insulin Lispro [humaLOG Kwikpen] 5 unit SQ AC-TID 12/14/19 12/14/19 History Insulin Lispro [humaLOG Kwikpen] See Protocol SQ AC-TID 12/14/19 12/14/19 History Meloxicam [Mobic] 7.5 mg PO DAILY PRN #30 tab 12/14/19 Rx Terazosin [Hytrin] 1 mg PO HS 12/14/19 12/14/19 History Allergies Allergy/AdvReac Type Severity Reaction Status Date / Time etanercept [From Enbrel] Allergy Rash/Hives Verified 12/14/19 08:58 hydroxyzine [From Atarax] Allergy Unknown Verified 12/14/19 08:58 latex Allergy Itching Verified 12/14/19 08:58 Sulfa (Sulfonamide Allergy Rash/Hives Verified 12/14/19 08:58 Antibiotics) tape Allergy Rash/Hives Uncoded 12/14/19 08:58 Physical Exam Vitals: Vital Signs Temp Pulse Pulse Resp BP BP Pulse Ox 12/14/19 11:41 97.4 F L 73 16 132/59 96 12/14/19 08:46 97 F L 75 16 154/77 100 12/14/19 08:40 97 F L 75 18 154/77 100 12/14/19 04:00 97.6 F 76 16 140/63 95 12/14/19 00:56 98 F 66 16 124/62 97 12/13/19 23:00 70 20 139/64 97 12/13/19 22:27 69 16 123/61 97 12/13/19 19:12 98.4 F 69 18 149/77 98 Intake and Output 12/13/19 12/14/19 12/14/19 22:59 06:59 14:59 Intake Total 558.947 83.426 Balance 558.947 83.426 Intake: Intake, IV Titration 58.947 83.426 Amount Heparin Sod,Pork in 0.45% 58.947 83.426 NaCl 25,000 unit In 0.45 % NaCl 1 250ml.bag @ 18 UNITS/KG/HR 14.615 mls/hr IV .[id number] [facility] Rx#: [id number] Oral 500 Other: # Voids 1 1 Weight 81.193 kg 81.4 kg PHYSICAL EXAMINATION: GENERAL: The patient is alert and oriented x3, not in any acute distress. Well developed, well nourished. HEENT: Pupils are round and equally reacting to light. EOMI. No scleral icterus. No conjunctival pallor. Normocephalic, atraumatic. No pharyngeal erythema. No thyromegaly. CARDIOVASCULAR: S1 and S2 present. No murmurs, rubs, or gallops. PULMONARY: Chest is clear to auscultation, no wheezing or crackles. ABDOMEN: Soft, nontender, nondistended, normoactive bowel sounds. No palpable organomegaly. MUSCULOSKELETAL: No joint swelling or deformity. EXTREMITIES: No cyanosis, clubbing, or pedal edema. NEUROLOGICAL: Gross neurological examination did not reveal any focal deficits. SKIN: No rashes. Results CBC & Chem 7: 12/14/19 03:23 12/13/19 19:44 Labs: Abnormal Lab Results - Last 24 Hours (Table) 12/13/19 12/13/19 12/13/19 Range/Units 19:44 19:45 23:08 Hgb 10.9 L (11.4-16.0) gm/dL Hct 33.7 L (34.0-46.0) % PT (9.0-12.0) sec INR (<1.2) APTT 35.1 H (22.0-30.0) sec Glucose 131 H (74-99) mg/dL POC Glucose (mg/dL) (75-99) mg/dL 12/14/19 12/14/19 12/14/19 Range/Units 00:00 03:23 03:23 Hgb 11.1 L (11.4-16.0) gm/dL Hct (34.0-46.0) % PT 13.0 H (9.0-12.0) sec INR 1.3 H (<1.2) APTT >200.0 H* >200.0 H* (22.0-30.0) sec Glucose (74-99) mg/dL POC Glucose (mg/dL) (75-99) mg/dL 12/14/19 12/14/19 12/14/19 Range/Units 07:06 11:31 12:19 Hgb (11.4-16.0) gm/dL Hct (34.0-46.0) % PT (9.0-12.0) sec INR (<1.2) APTT 88.6 H (22.0-30.0) sec Glucose (74-99) mg/dL POC Glucose (mg/dL) 177 H 118 H (75-99) mg/dL Thrombosis Risk Factor Assmnt - Choose All That Apply Each Factor Represents 1 point: Swollen legs (current) Each Risk Factor Represents 3 Points: Age 75 years or older, History of DVT/PE Thrombosis Risk Factor Assessment Total Risk Factor Score: 7 Thrombosis Risk Factor Assessment Level: High Risk Assessment and Plan Plan: Rule out acute DVT the left lower extremity patient appears to have chronic DVT and postphlebitic syndrome patient will be in effect from knee-high support hose and ration will follow with vascular surgery and PCP as outpatient for restless surgery evaluated the patient here. -Chronic venous insufficiency -History of DVT in the past for which patient is on Protonix which will be continued -Coronary disease -Severity of the past -Fibromyalgia -Hyperlipidemia -Coronary artery disease -History of arthritis -Depression For above-mentioned chronic medical problems patient can resume and continue on above-mentioned medications patient will be discharged today
--- NOTE | 2019-12-14 14:55 | P.DS ---
Providers Date of admission: 12/13/19 23:29 Attending physician: Ivette Catherine Consults: 12/13/19 23:15 Consult Physician Stat Consulting Provider: Sadi Mancini Consult Reason/Comments: LLE DVT Do you want consulting provider notified?: Yes Primary care physician: Ziyad Julian [facility] Hospital Course: Please refer to my HPI for further details Patient Condition at Discharge: Serious Plan - Discharge Summary Discharge Rx Participant: No New Discharge Prescriptions: New Meloxicam [Mobic] 7.5 mg PO DAILY PRN #30 tab PRN Reason: Pain Continue Cevimeline [Evoxac] 30 mg PO BID valACYclovir [Valtrex] 500 mg PO DAILY Nitroglycerin Sl Tabs [Nitrostat] 0.4 mg SUBLINGUAL Q5M PRN tab PRN Reason: Chest Pain Insulin Glargine,Hum.rec.anlog [Lantus Solostar] 10 unit SQ HS rOPINIRole HCL [Requip] 0.25 mg PO HS Loratadine [Claritin] 10 mg PO DAILY PRN PRN Reason: Allergy Symptoms Hydrocodone/Acetaminophen [[place] 10-325] 1 tab PO TID PRN PRN Reason: Pain Memantine [Namenda] 10 mg PO BID Zolpidem [Ambien] 5 mg PO HS PRN tab PRN Reason: Insomnia Dabigatran [Pradaxa] 150 mg PO BID #60 capsule tiZANidine [Zanaflex] 4 mg PO BID PRN PRN Reason: Muscle Spasm Sennosides [Senokot] 8.6 mg PO DAILY PRN PRN Reason: Constipation Metoprolol Succinate [Toprol XL] 25 mg PO DAILY Primidone [Mysoline] 25 mg PO DAILY Omeprazole [PriLOSEC] 40 mg PO DAILY Olopatadine HCl 1 drop BOTH EYES DAILY Lisinopril [Zestril] 2.5 mg PO DAILY Gabapentin [Neurontin] 300 mg PO TID Furosemide [Lasix] 20 mg PO DAILY Fluticasone Nasal [place] [Flonase Nasal [place]] 2 spr EA NOSTRIL DAILY PRN PRN Reason: Allergy Symptoms DULoxetine HCL [Cymbalta] 60 mg PO DAILY Cromolyn 4% Eye Drops 1 drop BOTH EYES DAILY busPIRone HCL 10 mg PO BID Atorvastatin [Lipitor] 40 mg PO HS Aspirin 81 mg PO DAILY #30 chewable Terazosin [Hytrin] 1 mg PO HS Insulin Lispro [humaLOG Kwikpen] 5 unit SQ AC-TID Insulin Lispro [humaLOG Kwikpen] See Protocol SQ AC-TID Discontinued predniSONE See Taper PO DAILY Discharge Medication List Cevimeline [Evoxac] 30 mg PO BID 04/29/14 [History] valACYclovir [Valtrex] 500 mg PO DAILY 12/01/17 [History] Nitroglycerin Sl Tabs [Nitrostat] 0.4 mg SUBLINGUAL Q5M PRN tab 01/11/18 [Rx] Insulin Glargine,Hum.rec.anlog [Lantus Solostar] 10 unit SQ HS 07/18/18 [History] rOPINIRole HCL [Requip] 0.25 mg PO HS 07/18/18 [History] Loratadine [Claritin] 10 mg PO DAILY PRN 02/01/19 [History] Hydrocodone/Acetaminophen [[place] 10-325] 1 tab PO TID PRN 03/25/19 [History] Memantine [Namenda] 10 mg PO BID 03/25/19 [History] Zolpidem [Ambien] 5 mg PO HS PRN tab 03/27/19 [Rx] Dabigatran [Pradaxa] 150 mg PO BID #60 capsule 05/13/19 [Rx] Atorvastatin [Lipitor] 40 mg PO HS 11/02/19 [History] Cromolyn 4% Eye Drops 1 drop BOTH EYES DAILY 11/02/19 [History] DULoxetine HCL [Cymbalta] 60 mg PO DAILY 11/02/19 [History] Fluticasone Nasal [place] [Flonase Nasal [place]] 2 spr EA NOSTRIL DAILY PRN 11/02/19 [History] Furosemide [Lasix] 20 mg PO DAILY 11/02/19 [History] Gabapentin [Neurontin] 300 mg PO TID 11/02/19 [History] Lisinopril [Zestril] 2.5 mg PO DAILY 11/02/19 [History] Metoprolol Succinate [Toprol XL] 25 mg PO DAILY 11/02/19 [History] Olopatadine HCl 1 drop BOTH EYES DAILY 11/02/19 [History] Omeprazole [PriLOSEC] 40 mg PO DAILY 11/02/19 [History] Primidone [Mysoline] 25 mg PO DAILY 11/02/19 [History] Sennosides [Senokot] 8.6 mg PO DAILY PRN 11/02/19 [History] busPIRone HCL 10 mg PO BID 11/02/19 [History] tiZANidine [Zanaflex] 4 mg PO BID PRN 11/02/19 [History] Aspirin 81 mg PO DAILY #30 chewable 11/04/19 [Rx] Insulin Lispro [humaLOG Kwikpen] 5 unit SQ AC-TID 12/14/19 [History] Insulin Lispro [humaLOG Kwikpen] See Protocol SQ AC-TID 12/14/19 [History] Meloxicam [Mobic] 7.5 mg PO DAILY PRN #30 tab 12/14/19 [Rx] Terazosin [Hytrin] 1 mg PO HS 12/14/19 [History] Follow up Appointment(s)/Referral(s): Kevon Ta DO [Doctor of Osteopathic Medicine] - 1 Week (please call to make follow up appointment ) Ziyad Julian DO [Primary Care Provider] - 3 Days (please call sunday to make follow up appointment ) Ambulatory/Diagnostic Orders: Miscellaneous DME Order [DME.AMB] Location: None Selected Patient Instructions/Handouts: Deep Vein Thrombosis (DC) Discharge Disposition: HOME SELF-CARE
== END 2019-12-14 14:37 | disposition home or self-care (01) | DRG 301 ==
LOC: EC 19:02 → 3SCARD 23:29
PROVIDERS: ADMIT Hospitalist; ATTEND Hospitalist
DX: I82.512 Chronic embolism and thrombosis of left femoral vein (principal); E11.40 Type 2 diabetes mellitus with diabetic neuropathy, unspecified; Z79.4 Long term (current) use of insulin; E78.5 Hyperlipidemia, unspecified; F32.9 Major depressive disorder, single episode, unspecified; I10 Essential (primary) hypertension; I25.10 Atherosclerotic heart disease of native coronary artery without angina pectoris; I25.2 Old myocardial infarction; I87.002 Postthrombotic syndrome without complications of left lower extremity; M06.9 Rheumatoid arthritis, unspecified; M79.7 Fibromyalgia; Z79.01 Long term (current) use of anticoagulants; Z79.1 Long term (current) use of non-steroidal anti-inflammatories (NSAID); Z79.82 Long term (current) use of aspirin; Z79.899 Other long term (current) drug therapy; Z85.828 Personal history of other malignant neoplasm of skin; Z86.73 Personal history of transient ischemic attack (TIA), and cerebral infarction without residual deficits; Z87.891 Personal history of nicotine dependence; Z11.59 Encounter for screening for other viral diseases; Z90.710 Acquired absence of both cervix and uterus; Z98.42 Cataract extraction status, left eye; Z98.41 Cataract extraction status, right eye; Z95.5 Presence of coronary angioplasty implant and graft; M54.9 Dorsalgia, unspecified; G89.29 Other chronic pain; K58.1 Irritable bowel syndrome with constipation; R29.6 Repeated falls; Z91.81 History of falling; Z86.19 Personal history of other infectious and parasitic diseases; I87.2 Venous insufficiency (chronic) (peripheral)
CPT/HCPCS: 36415; 71046; 80053; 81003; 83735; 83880; 84100; 84484; 85025; 85610; 85730; 87635; 93005; 93970; 96365; 96366; 96375; 96376; 99285

== ENCOUNTER 2020-02-04 13:54 | Inpatient (IN) | payer MEDICARE ==
[2020-02-04] MEDS ORDERED: fentaNYL (PF) 50 MCG/ML 2 ML AMP IVP ONE (14:00)
[2020-02-04] MEDS ORDERED: ASPIRIN 81 MG PO STA (14:02)
[2020-02-04] MEDS ORDERED: SODIUM CHLORIDE 0.9% 500 ML 500 ML IV STA (14:02)
--- NOTE | 2020-02-04 14:20 | ED ---
Chest Pain HPI - General Chief Complaint: Chest Pain Stated Complaint: Chest Pain Time Seen by Provider: 02/04/20 13:55 Source: patient, EMS Mode of arrival: EMS Limitations: no limitations - History of Present Illness Initial Comments: Patient is a 71-year-old female past medical history of coronary artery disease, CVA, DVT on Pradaxa who presents to the emergency room with reported chest pain, shortness of breath for 2 days. She describes it as a bandlike pressure sensation located around her epigastric region which radiates to her back. States it makes her extreme short of breath. The discomfort started 2 days ago. States that the shortness of breath and pain got worse yesterday in the afternoon. She was unable to ambulate across a room without having to stop and sit down. Because of the persistence and worsening of her symptoms today she called EMS. They arrived and found the patient diaphoretic and pale. She does have a previous cardiac history. Last stents were placed "several years ago". She sees Dr. Ferraro in office. Reports to having 6 stents. Patient also has a history of DVT. Denies missing any doses of her anticoagulation. She denies any fevers, chills or contacts with positive Covid patients. No nausea or vomiting. Denies any changes in her bowel or bladder habits. Patient had stable blood pressure. She was given 2 nitro en route which did drop her blood pressures 80 systolic. She also received a full dose aspirin. No other allevating, precipitating or modifying factors - Related Data Home Medications Medication Instructions Recorded Confirmed Cevimeline [Evoxac] 30 mg PO BID 04/29/14 02/04/20 valACYclovir [Valtrex] 500 mg PO DAILY 12/01/17 02/04/20 Insulin Glargine,Hum.rec.anlog 10 unit SQ HS 07/18/18 02/04/20 [Lantus Solostar] rOPINIRole HCL [Requip] 0.25 mg PO HS 07/18/18 02/04/20 Loratadine [Claritin] 10 mg PO DAILY PRN 02/01/19 02/04/20 Memantine [Namenda] 10 mg PO BID 03/25/19 02/04/20 Atorvastatin [Lipitor] 40 mg PO HS 11/02/19 02/04/20 Cromolyn 4% Eye Drops 1 drop BOTH EYES DAILY 11/02/19 02/04/20 DULoxetine HCL [Cymbalta] 60 mg PO DAILY 11/02/19 02/04/20 Fluticasone Nasal [place] [Flonase 2 spr EA NOSTRIL DAILY PRN 11/02/19 02/04/20 Nasal [place]] Furosemide [Lasix] 20 mg PO DAILY 11/02/19 02/04/20 Gabapentin [Neurontin] 300 mg PO TID 11/02/19 02/04/20 Lisinopril [Zestril] 2.5 mg PO DAILY 11/02/19 02/04/20 Metoprolol Succinate [Toprol XL] 25 mg PO DAILY 11/02/19 02/04/20 Omeprazole [PriLOSEC] 40 mg PO DAILY 11/02/19 02/04/20 Primidone [Mysoline] 25 mg PO HS 11/02/19 02/04/20 Sennosides [Senokot] 8.6 mg PO DAILY PRN 11/02/19 02/04/20 busPIRone HCL 10 mg PO BID 11/02/19 02/04/20 Insulin Lispro [humaLOG Kwikpen] 5 unit SQ AC-TID 12/14/19 02/04/20 Insulin Lispro [humaLOG Kwikpen] See Protocol SQ AC-TID 12/14/19 02/04/20 Terazosin [Hytrin] 1 mg PO HS 12/14/19 02/04/20 HYDROcodone/APAP 5-325MG [[place] 1 tab PO BID 02/04/20 02/04/20 5-325] Ibuprofen [Motrin] 800 mg PO Q8H PRN 02/04/20 02/04/20 fentaNYL 12MCG/HR PATCH [Duragesic 1 patch TRANSDERM Q72H 02/04/20 02/04/20 12MCG/HR] hydrOXYzine HCL [Atarax] 25 mg PO TID 02/04/20 02/04/20 Previous Rx's Medication Instructions Recorded Nitroglycerin Sl Tabs [Nitrostat] 0.4 mg SUBLINGUAL Q5M PRN tab 01/11/18 Zolpidem [Ambien] 5 mg PO HS PRN tab 03/27/19 Dabigatran [Pradaxa] 150 mg PO BID #60 capsule 05/13/19 Aspirin 81 mg PO DAILY #30 chewable 11/04/19 Allergies Allergy/AdvReac Type Severity Reaction Status Date / Time etanercept [From Enbrel] Allergy Rash/Hives Verified 02/04/20 15:14 hydroxyzine [From Atarax] Allergy Unknown Verified 02/04/20 15:14 latex Allergy Itching Verified 02/04/20 15:14 Sulfa (Sulfonamide Allergy Rash/Hives Verified 02/04/20 15:14 Antibiotics) tape Allergy Rash/Hives Uncoded 02/04/20 14:03 Review of Systems ROS Statement: Those systems with pertinent positive or pertinent negative responses have been documented in the HPI. ROS Other: All systems not noted in ROS Statement are negative. EKG Findings - EKG Comments: EKG Findings:: EKG demonstrates a sinus tachycardia with a ventricular rate of 109. WA interval 196. QRS 102. QTC 474. No acute ST segment elevations. Inverted T-wave with mild depression in the 46. Q wave in lead 3. Repeat EKG has significant baseline artifact. Continues to demonstrate a sinus tachycardia with a rate of 116. WA interval 206. QRS 96. QTC of 478. no acute ST segment elevation Past Medical History Past Medical History: Coronary Artery Disease (CAD), Chest Pain / Angina, CVA/TIA, Diabetes Mellitus, Deep Vein Thrombosis (DVT), Eye Disorder, Fibromyalgia, Hyperlipidemia, Hypertension, Myocardial Infarction ([place]), Osteoarthritis (OA), Rheumatoid Arthritis (RA) Additional Past Medical History / Comment(s): "Leaky" heart valve, NIDDM type II, neuropathy R hand and feet, DVT R calf, chronic pain, chronic back pain, DDD, anemia, hiatal hernia, hemorrhoids, IBS, diverticulosis, constipation, sinus problems, falls, skin cancer with removal, shingelle "break outs," skin itching (whole body) "like a prickly itch" started 6 months ago Last Myocardial Infarction Date:: 2018 History of Any Multi-Drug Resistant Organisms: None Reported Past Surgical History: Appendectomy, Cholecystectomy, Heart Catheterization, Heart Catheterization With Stent, Hernia Repair, Hysterectomy, Tonsillectomy Additional Past Surgical History / Comment(s): PCI with multiple stents(6-7), ventral hernia repair, colonoscopy, bilateral cataract removals, skin cancer removals. Past Anesthesia/Blood Transfusion Reactions: No Reported Reaction Date of Last Stent Placement:: 2018 Past Psychological History: Depression Past Alcohol Use History: None Reported Past Drug Use History: None Reported - Past Family History Father Additional Family Medical History / Comment(s): pt stated had heart issues, but not sure what Mother Additional Family Medical History / Comment(s): leaking valve General Exam Limitations: no limitations General appearance: alert, anxious, other (diaphoretic) Head exam: Present: atraumatic, normocephalic ENT exam: Present: normal exam, mucous membranes moist Neck exam: Present: other (jvd) Respiratory exam: Present: wheezes, rales, accessory muscle use, other (tachypnia) Cardiovascular Exam: Present: normal rhythm, tachycardia GI/Abdominal exam: Present: soft, normal bowel sounds. Absent: distended, tenderness, guarding, rebound, rigid Extremities exam: Present: pedal edema Neurological exam: Present: alert, oriented X3, CN II-XII intact Psychiatric exam: Present: normal affect, normal mood, anxious Skin exam: Present: warm, dry, intact, normal color. Absent: rash Course Vital Signs 02/04/20 02/04/20 02/04/20 13:55 14:08 14:30 Temperature 98 F Pulse Rate 110 H 105 H 108 H Respiratory 24 24 18 Rate Blood Pressure 102/70 133/70 O2 Sat by Pulse 96 96 91 L Oximetry 02/04/20 02/04/20 02/04/20 15:00 15:30 16:00 Temperature Pulse Rate 109 H 109 H Respiratory 27 H 27 H Rate Blood Pressure 113/84 118/77 110/60 O2 Sat by Pulse 98 98 Oximetry 02/04/20 02/04/20 02/04/20 16:30 17:30 18:04 Temperature Pulse Rate 101 H 109 H 107 H Respiratory 28 H 20 20 Rate Blood Pressure 105/72 122/66 108/65 O2 Sat by Pulse 97 97 100 Oximetry - Reevaluation(s) Reevaluation #1: 02/04/20 16:33 Attempted to speak with Dr. Penn however. He is in Mediator Reevaluation #2: Discuss the case with Dr. Penn 02/04/20 17:08 who would like the patient in the icu Reevaluation #3: Discuss case once again with Dr. Penn who states that Dr. Ferraro who will be evaluating the patient. Also discussed case with Dr. Gill 02/04/20 17:23 Chest Pain MDM - MDM Upon arrival the patient is placed into room 1. She is hooked up to continuous pulse ox and cardiac monitoring. She received 2 nitro and a full dose aspirin. A 12-lead EKG was performed which demonstrates some J-point elevation in the anterior leads however no acute ST segment elevation. Patient was given 100 mics of fentanyl with improvement of her pain to a 3 out of 10. Laboratory signs were conducted which are remarkable for hemoglobin of 9.6, d-dimer 3.17, troponin 7.3 and BNP of 16,500. Patient was sent for a CT of her chest as well as a CT of her abdomen. CT of her chest demonstrates fluid overload with bilateral pleural effusions and central pulmonary vascular congestion. No PE. Abdomen demonstrates no acute process. The patient's Pradaxa was stopped. I did initiate her on a heparin drip. She is given 60 mg of Lasix. I attempted to discuss the case with Dr. Penn at 1605 however he is in the label maker. I did leave a message with the Mediator nurse. He does call me back and recommends Lasix 40q8 and ICU admission at 1708. I discussed the case with Dr. Gill in at 1720. I did discuss the case further with Dr. Penn at [address] Ferraro will evaluate the patient in the ED however do not believe the patient would benefit from immediate catherization due to symptoms being >36 hours old. She was updated as to her care. She was admitted to the ICU in stable condition. Dr. Ferraro did present to the ED to evaluate the patient. Recommended lasix gtt instead of lasix q8. Pt inititated on lasix gtt and will be transferred to ICU Critical Care Time Critical Care Time: Yes Critical Care Time: 45 minutes Disposition Clinical Impression: Acute non-ST elevation myocardial infarction (NSTEMI), Chest pain, Acute pulmonary edema Disposition: ADMITTED IP TO THIS HOSP Condition: Serious Is patient prescribed a controlled substance at d/c from ED?: No Decision to Admit Reason: Admit from EC Decision Date: 02/04/20 Decision Time: 16:17
[2020-02-04 14:34] LABS: Basophils % (A) 0 %; Eosinophils % (A) 0 %; Hypochromasia Slight; Lymphocytes # (A) 0.8 k/uL (1.0-4.8); Lymphocytes % (A) 9 %; MCHC 30.9 g/dL (31.0-37.0); MCV 87.3 fL (80.0-100.0); Mean Platelet Volume 7.7; Monocytes # (A) 0.4 k/uL (0-1.0); Monocytes % (A) 4 %; Neutrophils % (A) 86 %; Platelet Count 286 k/uL (150-450); RBC 3.55 m/uL (3.80-5.40); RDW 14.9 % (11.5-15.5); WBC 9.3 k/uL (3.8-10.6)
[2020-02-04 14:39] LABS: HGB 9.6 gm/dL (11.4-16.0)
[2020-02-04 14:42] LABS: Albumin 3.3 g/dL (3.5-5.0); Calcium 8.5 mg/dL (8.4-10.2); Potassium 4.7 mmol/L (3.5-5.1); Total Bilirubin 0.7 mg/dL (0.2-1.3); Total Protein 5.6 g/dL (6.3-8.2)
[2020-02-04 14:54] LABS: INR 1.1 (<1.2); Partial Thromboplastin Time 20.7 sec (22.0-30.0); Prothrombin Time 11.4 sec (9.0-12.0)
[2020-02-04 15:00] LABS: D-Dimer 3.17 mg/L FEU (<0.60)
--- NOTE | 2020-02-04 15:39 | CT ---
EXAMINATION TYPE: CT chest angio for PE DATE OF EXAM: 02/04/2020 COMPARISON: Chest x-ray 12/13/2019 HISTORY: Trouble breathing CT DLP: 580.7 mGycm Automated exposure control for dose reduction was used. CONTRAST: CT Chest for pulmonary embolism performed with with IV Contrast, patient injected with 100 mL of Isov ue 370. Three-dimensional reconstructions performed on an alternate workstation. FINDINGS: Surgical changes are noted to the cervical spine. LUNGS: The lungs are markable for groundglass opacity bilaterally. There are bilateral pleural effusi ons with associated atelectasis. Interstitium is increased. The tracheobronchial tree is patent. MEDIASTINUM: There is satisfactory enhancement of the pulmonary artery and its branches, there is no CT evidence for pulmonary embolism. There are no greater than 1 cm hilar or mediastinal lymph nodes. No pericardial effusion is seen, heart is [id number]. There are dense coronary artery calcificatio ns. AORTA: No additional significant abnormality is seen. OTHER: No additional significant abnormality is seen. IMPRESSION: Findings consistent with congestive heart failure with bilateral pleural effusions
--- NOTE | 2020-02-04 15:43 | CT ---
EXAMINATION TYPE: CT abdomen pelvis w con DATE OF EXAM: 02/04/2020 COMPARISON: HISTORY: Trouble breathing CT DLP: 739.6 mGycm Automated exposure control for dose reduction was used. TECHNIQUE: Helical acquisition of images from the lung bases through the pelvis have been completed. CONTRAST: Performed without Oral Contrast and with IV Contrast, patient injected with 100 mL of Isovue 370. FINDINGS: Postop changes are noted along anterior abdominal wall LUNG BASES: Bilateral pleural effusions noted. AORTA: No significant abnormality is appreciated. LIVER/GB: Patient is post cholecystectomy, no evident liver mass PANCREAS: It is fatty replaced SPLEEN: No significant abnormality is seen. ADRENALS: No significant abnormality is seen. KIDNEYS: No significant abnormality is seen. REPRODUCTIVE ORGANS: Postop changes are noted. Uterus and adnexal structures are absent. BOWEL: Tendons is normal. No bowel obstruction. FREE AIR: No Free Air visible. ASCITES: None visible. PELVIC ADENOPATHY: None visualized. RETROPERITONEAL ADENOPATHY: No Retroperitoneal Adenopathy visible. URINARY BLADDER: No significant abnormality is seen. OSSEOUS STRUCTURES: There are facet arthropathy changes present, degenerative disc change, minimal C suspect grade 1 L4-5. IMPRESSION: NO ACUTE INTRA-ABDOMINAL ADENOPATHY OR ABNORMALITY.
[2020-02-04] MEDS ORDERED: HEPARIN SODIUM,PORCINE 5,000 UNIT/ML 1 ML VIAL IV ONE (15:53)
[2020-02-04] MEDS ORDERED: HEPARIN SODIUM,PORCINE 5,000 UNIT/ML 1 ML VIAL IV PRN (15:53)
[2020-02-04] MEDS ORDERED: HEPARIN SOD,PORK IN 0.45% NACL 25,000 UNIT in 0.45% NACL 1 250ML.BAG IV SCH (16:00)
[2020-02-04] MEDS ORDERED: NALOXONE 0.4 MG/ML 1 ML VIAL IV PRN (16:18)
[2020-02-04] MEDS ORDERED: LORATADINE 10 MG TAB PO PRN (16:24)
[2020-02-04] MEDS ORDERED: FLUTICASONE 50MCG/SPRAY NASAL 16GM EA NOSTRIL PRN (16:24)
[2020-02-04] MEDS ORDERED: FUROSEMIDE 10 MG/ML 10 ML VIAL IV STA (16:29)
--- NOTE | 2020-02-04 18:20 | P.CRDCN ---
History of Present Illness History of present illness: This is Dr. Ferraro dictating a consult on this patient The patient was interviewed and examined Marie is my patient IMPRESSION / ASSESSMENT: Non-Q wave myocardial infarction Acute and chronic congestive heart failure, systolic Large bilateral pleural effusions Past history of ischemic cardiomyopathy and stenting to the LAD and stenting to the RCA on 2 separate occasions History of DVT PLAN: IV heparin Beta blockers, short-acting, 12.5 mg 3 times a day of metoprolol Aspirin Start IV Lasix drip 10 mg an hour Increase statins to 80 mg of atorvastatin daily Once a heart rate is status improves then coronary angiography will be pursued At this time she is quite cachectic in the upright position and has large pleural effusions HPI For the last 3 days the patient has been experiencing tightness which is up and across the front of the chest. It is almost constant. She initially thought was gas and did not seek medical attention for the last 3 days However on more detailed questioning she's been short of breath for a longer period than that and she is very short of breath this time even at rest and is barely able to complete full sentences even though she is propped up No dizziness no loss of consciousness Twelve-lead EKG shows T-wave inversions in the lateral precordial leads Abnormal troponin and abnormal BNP No evidence for pulmonary embolism ROS: No fever chills or rigors, no cough, phlegm or expectoration, no nausea, vomiting or diarrhea, no hematuria, dysuria, no musculoskeletal complaints, no strokes or seizures, no skin lesions. EXAMINATION: Sinus tachycardia 110 beats a minute tachypneic at rest, uncomfortable but the chest discomfort and tightness is better Blood pressure 165 mmHg She drop with sublingual nitroglycerin but her blood pressure now is back in the normal range Reduced breath sounds bilaterally at bases with crackles in the mid lungs Heart sounds are tachycardic and soft Bilateral lower extremity edema Positive hepatojugular reflux REVIEW OF LABS, ECG & MEDICAL DATA Past history of coronary artery disease Stenting to the LAD in 2005 Stenting to the RCA 2013 Repeat stenting to the RCA thereafter Ischemic cardio myopathy with ejection fraction 45% history of DVT on Pradaxa Patient is on atorvastatin Drop in hemoglobin to 9.6 D-dimer 3.17 Sodium 133 potassium 4.7 normal renal function Troponin I 7.36 NT proBNP 16,500 Twelve-lead ECG shows sinus tachycardia with inverted T waves in V4 through V6 as well his lead 1 Follow-up ECG shows baseline artifact but no new ST segment abnormalities CT of the chest is consistent with congestive heart failure with bilateral large pleural effusions Past Medical History Past Medical History: Coronary Artery Disease (CAD), Chest Pain / Angina, CVA/TIA, Diabetes Mellitus, Deep Vein Thrombosis (DVT), Eye Disorder, Fibro myalgia, Hyperlipidemia, Hypertension, Myocardial Infarction ([place]), Osteoarthritis (OA), Rheumatoid Arthritis ([place]) Additional Past Medical History / Comment(s): "Leaky" heart valve, NIDDM type II, neuropathy R hand and feet, DVT R calf, chronic pain, chronic back pain, DDD, anemia, hiatal hernia, hemorrhoids, IBS, diverticulosis, constipation, sinus problems, falls, skin cancer with removal, shingelle "break outs," skin itching (whole body) "like a prickly itch" started 6 months ago Last Myocardial Infarction Date:: 2017 History of Any Multi-Drug Resistant Organisms: None Reported Past Surgical History: Appendectomy, Cholecystectomy, Heart Catheterization, Heart Catheterization With Stent, Hernia Repair, Hysterectomy, Tonsillectomy Additional Past Surgical History / Comment(s): PCI with multiple stents(6-7), ventral hernia repair, colonoscopy, bilateral cataract removals, skin cancer removals. Past Anesthesia/Blood Transfusion Reactions: No Reported Reaction Date of Last Stent Placement:: 2017 Past Psychological History: Depression Past Alcohol Use History: None Reported Past Drug Use History: None Reported - Past Family History Father Additional Family Medical History / Comment(s): pt stated had heart issues, but not sure what Mother Additional Family Medical History / Comment(s): leaking valve Medications and Allergies Home Medications Medication Instructions Recorded Confirmed Type Cevimeline [Evoxac] 30 mg PO BID 04/29/14 02/04/20 History valACYclovir [Valtrex] 500 mg PO DAILY 12/01/17 02/04/20 History Nitroglycerin Sl Tabs [Nitrostat] 0.4 mg SUBLINGUAL Q5M PRN tab 01/11/18 Rx Insulin Glargine,Hum.rec.anlog 10 unit SQ HS 07/18/18 02/04/20 History [Lantus Solostar] rOPINIRole HCL [Requip] 0.25 mg PO HS 07/18/18 02/04/20 History Loratadine [Claritin] 10 mg PO DAILY PRN 02/01/19 02/04/20 History Memantine [Namenda] 10 mg PO BID 03/25/19 02/04/20 History Zolpidem [Ambien] 5 mg PO HS PRN tab 03/27/19 02/04/20 Rx Dabigatran [Pradaxa] 150 mg PO BID #60 capsule 05/13/19 02/04/20 Rx Atorvastatin [Lipitor] 40 mg PO HS 11/02/19 02/04/20 History Cromolyn 4% Eye Drops 1 drop BOTH EYES DAILY 11/02/19 02/04/20 History DULoxetine HCL [Cymbalta] 60 mg PO DAILY 11/02/19 02/04/20 History Fluticasone Nasal [place] [Flonase 2 spr EA NOSTRIL DAILY PRN 11/02/19 02/04/20 History Nasal [place]] Furosemide [Lasix] 20 mg PO DAILY 11/02/19 02/04/20 History Gabapentin [Neurontin] 300 mg PO TID 11/02/19 02/04/20 History Lisinopril [Zestril] 2.5 mg PO DAILY 11/02/19 02/04/20 History Metoprolol Succinate [Toprol XL] 25 mg PO DAILY 11/02/19 02/04/20 History Omeprazole [PriLOSEC] 40 mg PO DAILY 11/02/19 02/04/20 History Primidone [Mysoline] 25 mg PO HS 11/02/19 02/04/20 History Sennosides [Senokot] 8.6 mg PO DAILY PRN 11/02/19 02/04/20 History busPIRone HCL 10 mg PO BID 11/02/19 02/04/20 History Aspirin 81 mg PO DAILY #30 chewable 11/04/19 02/04/20 Rx Insulin Lispro [humaLOG Kwikpen] 5 unit SQ AC-TID 12/14/19 02/04/20 History Insulin Lispro [humaLOG Kwikpen] See Protocol SQ AC-TID 12/14/19 02/04/20 History Terazosin [Hytrin] 1 mg PO HS 12/14/19 02/04/20 History HYDROcodone/APAP 5-325MG [[place] 1 tab PO BID 02/04/20 02/04/20 History 5-325] Ibuprofen [Motrin] 800 mg PO Q8H PRN 02/04/20 02/04/20 History fentaNYL 12MCG/HR PATCH [Duragesic 1 patch TRANSDERM Q72H 02/04/20 02/04/20 History 12MCG/HR] hydrOXYzine HCL [Atarax] 25 mg PO TID 02/04/20 02/04/20 History Allergies Allergy/AdvReac Type Severity Reaction Status Date / Time etanercept [From Enbrel] Allergy Rash/Hives Verified 02/04/20 15:14 hydroxyzine [From Atarax] Allergy Unknown Verified 02/04/20 15:14 latex Allergy Itching Verified 02/04/20 15:14 Sulfa (Sulfonamide Allergy Rash/Hives Verified 02/04/20 15:14 Antibiotics) tape Allergy Rash/Hives Uncoded 02/04/20 14:03 Physical Exam Vitals: Vital Signs Temp Pulse Resp BP Pulse Ox 02/04/20 18:04 107 H 20 108/65 100 02/04/20 17:30 109 H 20 122/66 97 02/04/20 16:30 101 H 28 H 105/72 97 02/04/20 16:00 109 H 27 H 110/60 98 02/04/20 15:30 109 H 27 H 118/77 98 02/04/20 15:00 113/84 02/04/20 14:30 108 H 18 133/70 91 L 02/04/20 14:08 105 H 24 96 02/04/20 13:55 98 F 110 H 24 102/70 96 Intake and Output 02/04/20 02/04/20 02/04/20 06:59 14:59 22:59 Other: Weight 77.111 kg Results 02/04/20 14:20 02/04/20 14:20 Cardiac Enzymes 02/04/20 02/04/20 Range/Units 14:20 14:20 AST 98 H (14-36) U/L Troponin I 7.360 H* (0.000-0.034) ng/mL Coagulation 02/04/20 Range/Units 14:20 PT 11.4 (9.0-12.0) sec APTT 20.7 L (22.0-30.0) sec CBC 02/04/20 Range/Units 14:20 WBC 9.3 (3.8-10.6) k/uL RBC 3.55 L (3.80-5.40) m/uL Hgb 9.6 L D (11.4-16.0) gm/dL Hct 31.0 L (34.0-46.0) % Plt Count 286 (150-450) k/uL Comprehensive Metabolic Panel 02/04/20 Range/Units 14:20 Sodium 133 L (137-145) mmol/L Potassium 4.7 (3.5-5.1) mmol/L Chloride 105 (98-107) mmol/L Carbon Dioxide 15 L (22-30) mmol/L BUN 22 H (7-17) mg/dL Creatinine 0.91 (0.52-1.04) mg/dL Glucose 291 H (74-99) mg/dL Calcium 8.5 (8.4-10.2) mg/dL AST 98 H (14-36) U/L ALT 30 (4-34) U/L Alkaline Phosphatase 81 (38-126) U/L Total Protein 5.6 L (6.3-8.2) g/dL Albumin 3.3 L (3.5-5.0) g/dL Current Medications Generic Name Dose Route Start Last Admin Trade Name Freq PRN Reason Stop Dose Admin Hydrocodone Bitart/Acetaminophen 1 each 02/04/20 21:00 [place] 5-325 PO BID RUKHSANA Aspirin 81 mg 02/05/20 09:00 Aspirin PO DAILY RUKHSANA Buspirone HCl 10 mg 02/04/20 21:00 Buspar PO BID RUKHSANA Cevimeline HCl 30 mg 02/04/20 21:00 Evoxac PO BID RUKHSANA Duloxetine HCl 60 mg 02/05/20 09:00 Cymbalta PO DAILY RUKHSANA Fentanyl 1 patch 02/04/20 17:00 02/04/20 17:27 Duragesic 12mcg/Hr Patch TRANSDERM Not Given Q72H RUKHSANA Fluticasone Propionate 2 spray 02/04/20 16:24 Flonase Nasal [place] EA NOSTRIL DAILY PRN Allergy Symptoms Gabapentin 300 mg 02/04/20 22:00 Neurontin PO TID RUKHSANA Heparin Sodium (Porcine) 0 unit 02/04/20 15:53 Heparin IV PER PROTOCOL PRN Low PTT Protocol Heparin Sodium/Sodium Chloride 250 mls @ 9.253 mls/hr 02/04/20 16:00 02/04/20 16:08 25,000 unit/ Sodium Chloride IV 12 units/kg/hr .Q24H RUKHSANA 9.253 mls/hr Administration Protocol 12 UNITS/KG/HR Furosemide 100 mg/ Sodium 100 mls @ 10 mls/hr 02/04/20 18:15 Chloride IV .Q10H RUKHSANA 10 MG/HR Insulin Aspart 5 unit 02/04/20 17:30 Novolog SQ AC-TID RUKHSANA Insulin Detemir 10 unit 02/04/20 21:00 Levemir SQ HS RUKHSANA Lisinopril 2.5 mg 02/05/20 09:00 Zestril PO DAILY RUKHSANA Loratadine 10 mg 02/04/20 16:24 Claritin PO DAILY PRN Allergy Symptoms Memantine 10 mg 02/04/20 21:00 Namenda PO BID RUKHSANA Naloxone HCl 0.2 mg 02/04/20 16:18 Narcan IV Q2M PRN Opioid Reversal Non-Formulary Medication 1 drop 02/05/20 09:00 Cromolyn 4% Eye Drops BOTH EYES DAILY RUKHSANA Pantoprazole Sodium 40 mg 02/05/20 07:30 Protonix PO AC-BRKFST RUKHSANA Primidone 25 mg 02/04/20 21:00 Mysoline PO HS [facility] Intake and Output 02/04/20 02/04/20 02/04/20 06:59 14:59 22:59 Other: Weight 77.111 kg Patient Weight 02/05/20 06:59 Weight 77.111 kg 02/04/20 14:20 02/04/20 14:20
[2020-02-04] MEDS: INSULIN ASPART (NovoLOG) 100 UNIT/ML VIAL SQ SCH (18:54)
[2020-02-04 19:00] LABS: Glucose,Whole Blood 251 mg/dL (75-99)
[2020-02-04] MEDS: FUROSEMIDE 100 MG in SODIUM CHLORIDE 0.9% 90 ML IV SCH (19:31)
[2020-02-04] MEDS ORDERED: ONDANSETRON 4 MG/2 ML VIAL IVP PRN (19:35)
[2020-02-04 20:18] LABS: Glucose,Whole Blood 243 mg/dL (75-99)
[2020-02-04] MEDS ORDERED: PROMETHAZINE INJ 25 MG in SODIUM CHLORIDE 0.9% 50 ML IVPB PRN (20:48)
[2020-02-04] MEDS ORDERED: ATORVASTATIN 40 MG TAB PO SCH (21:00)
[2020-02-04] MEDS ORDERED: PRIMIDONE 25 MG TAB PO SCH (21:00)
[2020-02-04] MEDS ORDERED: INSULIN DETEMIR (LEVEMIR) 100 UNIT/ML SYR SQ SCH ×2 (21:00)
[2020-02-04] MEDS ORDERED: INSULIN ASPART (NovoLOG) 100 UNIT/ML VIAL SQ SCH (21:00)
[2020-02-04] MEDS ORDERED: CEVIMELINE 30 MG CAP PO SCH (21:00)
[2020-02-04] MEDS: METOPROLOL TARTRATE 12.5 MG TAB PO SCH (21:03)
[2020-02-04] MEDS: GABAPENTIN 300 MG CAP PO SCH (21:03)
[2020-02-04] MEDS: ATORVASTATIN 80 MG TAB PO SCH (21:04)
[2020-02-04] MEDS: HYDROcodone/APAP 5-325MG 1 EACH TAB PO SCH (21:04)
[2020-02-04] MEDS: busPIRone HCl 10 MG TAB PO SCH (22:15)
[2020-02-04] MEDS: MEMANTINE 10 MG TAB PO SCH (22:15)
[2020-02-04] MEDS ORDERED: ZOLPIDEM 5 MG TAB PO PRN (22:23)
[2020-02-05] MEDS ORDERED: FUROSEMIDE 10 MG/ML 4 ML VIAL IV SCH
--- NOTE | 2020-02-05 00:50 | P.HPIM ---
History of Present Illness H&P Date: 02/04/20 Chief Complaint: Chest pain Patient is a 79-year-old female with a known history of coronary artery disease status post stent placement x6 as per patient, history of DVT on Pradaxa, fibromyalgia, hypertension, hyperlipidemia, history of NV, osteoarthritis and rheumatoid arthritis, rlj-[id number] type 2, diabetic peripheral neuropathy and chronic back pain and other multiple medical problems came to ER with the complaints of chest pain and worsening shortness of breath since yesterday. Patient states that she felt bandlike sensation across the upper chest and to the back. Symptoms are getting worse since yesterday afternoon.Patient has been having ongoing symptoms. Patient has been having symptoms for the past 2 days. No complaints of cough or sputum production. No fever no chills. No nausea vomiting or abdominal pain or diarrhea. Denied any recent illnesses. Patient called EMS today. Was found to be pale and diaphoretic. Patient was given aspirin and 2 nitroglycerin tablets enroute to ER which did drop her blood pressure [address] angiogram of the chest showed findings consistent with congestive heart failure with bilateral pleural effusions. CT of the abdomen pelvis was done showed no acute intra-abdominal adenopathy or abnormality. EKG showed sinus tachycardia. T wave Inversions in the lateral leads. Laboratory data showed WBC 9.3, hemoglobin 9.6 and platelets 286 D-dimer 3.17 Sodium 133, potassium 4.7, BUN 22 and creatinine 0.91, bicarb 15 Blood sugar was 291 on admission AST 98 and ALT 30 Troponin 7.36, 27.1 and 44.3 proBNP 16 500 Lipase 32 Review of Systems Constitutional: Patient denies any fever or chills . No generalized weakness or weight loss. Abdomen: Patient denied nausea vomiting and diarrhea and abdominal pain. Cardiovascular: Patient does have chest pain associated with shortness of breath and no palpitations. Patient does have leg swelling. Respiratory: patient denied any cough is from production. No shortness of breath Neurologic: Patient denied any numbness or tingling headache. Musculoskeletal: Patient denies any complaints of joint swelling or deformity. Skin: Negative Psychiatric: Negative Endocrine: No heat or cold intolerance. No recent weight gain. Genitourinary: No dysuria or hematuria. All other 14 point ROS negative except the above Past Medical History Past Medical History: Coronary Artery Disease (CAD), Chest Pain / Angina, CVA/TIA, Diabetes Mellitus, Deep Vein Thrombosis (DVT), Eye Disorder, Fibromyalgia, Hyperlipidemia, Hypertension, Myocardial Infarction (NV), Osteoarthritis (OA), Rheumatoid Arthritis (RA) Additional Past Medical History / Comment(s): "Leaky" heart valve, NIDDM type II, neuropathy R hand and feet, DVT R calf, chronic pain, chronic back pain, DDD, anemia, hiatal hernia, hemorrhoids, IBS, diverticulosis, constipation, sinus problems, falls, skin cancer with removal, shingelle "break outs," skin itching (whole body) "like a prickly itch" started 6 months ago Last Myocardial Infarction Date:: 2017 History of Any Multi-Drug Resistant Organisms: None Reported Past Surgical History: Appendectomy, Cholecystectomy, Heart Catheterization, Heart Catheterization With Stent, Hernia Repair, Hysterectomy, Tonsillectomy Additional Past Surgical History / Comment(s): PCI with multiple stents(6-7), ventral hernia repair, colonoscopy, bilateral cataract removals, skin cancer removals. Past Anesthesia/Blood Transfusion Reactions: No Reported Reaction Date of Last Stent Placement:: 2017 Past Psychological History: Depression Past Alcohol Use History: None Reported Past Drug Use History: None Reported - Past Family History Father Additional Family Medical History / Comment(s): pt stated had heart issues, but not sure what Mother Additional Family Medical History / Comment(s): leaking valve Medications and Allergies Home Medications Medication Instructions Recorded Confirmed Type Cevimeline [Evoxac] 30 mg PO BID 04/29/14 02/04/20 History valACYclovir [Valtrex] 500 mg PO DAILY 12/01/17 02/04/20 History Nitroglycerin Sl Tabs [Nitrostat] 0.4 mg SUBLINGUAL Q5M PRN tab 01/11/18 02/04/20 Rx Insulin Glargine,Hum.rec.anlog 10 unit SQ HS 07/18/18 02/04/20 History [Lantus Solostar] rOPINIRole HCL [Requip] 0.25 mg PO HS 07/18/18 02/04/20 History Loratadine [Claritin] 10 mg PO DAILY PRN 02/01/19 02/04/20 History Memantine [Namenda] 10 mg PO BID 03/25/19 02/04/20 History Zolpidem [Ambien] 5 mg PO HS PRN tab 03/27/19 02/04/20 Rx Dabigatran [Pradaxa] 150 mg PO BID #60 capsule 05/13/19 02/04/20 Rx Atorvastatin [Lipitor] 40 mg PO HS 11/02/19 02/04/20 History Cromolyn 4% Eye Drops 1 drop BOTH EYES DAILY 11/02/19 02/04/20 History DULoxetine HCL [Cymbalta] 60 mg PO DAILY 11/02/19 02/04/20 History Fluticasone Nasal [place] [Flonase 2 spr EA NOSTRIL DAILY PRN 11/02/19 02/04/20 History Nasal [place]] Furosemide [Lasix] 20 mg PO DAILY 11/02/19 02/04/20 History Gabapentin [Neurontin] 300 mg PO TID 11/02/19 02/04/20 History Lisinopril [Zestril] 2.5 mg PO DAILY 11/02/19 02/04/20 History Metoprolol Succinate [Toprol XL] 25 mg PO DAILY 11/02/19 02/04/20 History Omeprazole [PriLOSEC] 40 mg PO DAILY 11/02/19 02/04/20 History Primidone [Mysoline] 25 mg PO HS 11/02/19 02/04/20 History Sennosides [Senokot] 8.6 mg PO DAILY PRN 11/02/19 02/04/20 History busPIRone HCL 10 mg PO BID 11/02/19 02/04/20 History Aspirin 81 mg PO DAILY #30 chewable 11/04/19 02/04/20 Rx Insulin Lispro [humaLOG Kwikpen] 5 unit SQ AC-TID 12/14/19 02/04/20 History Insulin Lispro [humaLOG Kwikpen] See Protocol SQ AC-TID 12/14/19 02/04/20 History Terazosin [Hytrin] 1 mg PO HS 12/14/19 02/04/20 History HYDROcodone/APAP 5-325MG [Shannon 1 tab PO BID 02/04/20 02/04/20 History 5-325] Ibuprofen [Motrin] 800 mg PO Q8H PRN 02/04/20 02/04/20 History fentaNYL 12MCG/HR PATCH [Duragesic 1 patch TRANSDERM Q72H 02/04/20 02/04/20 History 12MCG/HR] hydrOXYzine HCL [Atarax] 25 mg PO TID 02/04/20 02/04/20 History Allergies Allergy/AdvReac Type Severity Reaction Status Date / Time etanercept [From Enbrel] Allergy Rash/Hives Verified 02/04/20 15:14 hydroxyzine [From Atarax] Allergy Unknown Verified 02/04/20 15:14 latex Allergy Itching Verified 02/04/20 15:14 Sulfa (Sulfonamide Allergy Rash/Hives Verified 02/04/20 15:14 Antibiotics) tape Allergy Rash/Hives Uncoded 02/04/20 14:03 Physical Exam Vitals: Vital Signs Temp Pulse Resp BP Pulse Ox 02/04/20 16:30 101 H 28 H 105/72 97 02/04/20 16:00 109 H 27 H 110/60 98 02/04/20 15:30 109 H 27 H 118/77 98 02/04/20 15:00 113/84 02/04/20 14:30 108 H 18 133/70 91 L 02/04/20 14:08 105 H 24 96 02/04/20 13:55 98 F 110 H 24 102/70 96 Intake and Output 02/04/20 02/04/20 02/04/20 06:59 14:59 22:59 Other: Weight 77.111 kg PHYSICAL EXAMINATION: Patient is lying in the bed comfortably, acute distress due to KENNETH, awake alert and oriented.. HEENT: Normocephalic. Neck is supple. Pupils reactive. Nostrils clear. Oral cavity is moist. Ears reveal no drainage. Neck reveals no JVD, carotid bruits, or thyromegaly. CHEST EXAMINATION: Trachea is central. Symmetrical expansion.Bibasilar diminished air entry no wheezing.. Lung staley clear to auscultation and percussion. CARDIAC: Normal S1, S2 with no gallops. Systolic murmur. ABDOMEN: Soft. Bowel sounds normal. No organomegaly. No abdominal bruits. Extremities: 2+ edema. No clubbing or cyanosis Neurologically awake, alert, oriented x3 with well-coordinated movements. No focal deficits noted Skin: No rash or skin lesions. Psychiatric: Coperative. Nonsuicidal Musculoskeletal: No joint swelling or deformity. Normal range of motion. Results CBC & Chem 7: 02/04/20 14:20 02/04/20 14:20 Labs: Abnormal Lab Results - Last 24 Hours (Table) 02/04/20 02/04/20 02/04/20 Range/Units 14:20 14:20 14:20 RBC 3.55 L (3.80-5.40) m/uL Hgb 9.6 L D (11.4-16.0) gm/dL Hct 31.0 L (34.0-46.0) % MCHC 30.9 L (31.0-37.0) g/dL Neutrophils # 8.0 H (1.3-7.7) k/uL Lymphocytes # 0.8 L (1.0-4.8) k/uL APTT 20.7 L (22.0-30.0) sec D-Dimer 3.17 H (<0.60) mg/L FEU Sodium 133 L (137-145) mmol/L Carbon Dioxide 15 L (22-30) mmol/L BUN 22 H (7-17) mg/dL Glucose 291 H (74-99) mg/dL AST 98 H (14-36) U/L Troponin I (0.000-0.034) ng/mL Total Protein 5.6 L (6.3-8.2) g/dL Albumin 3.3 L (3.5-5.0) g/dL 02/04/20 Range/Units 14:20 RBC (3.80-5.40) m/uL Hgb (11.4-16.0) gm/dL Hct (34.0-46.0) % MCHC (31.0-37.0) g/dL Neutrophils # (1.3-7.7) k/uL Lymphocytes # (1.0-4.8) k/uL APTT (22.0-30.0) sec D-Dimer (<0.60) mg/L FEU Sodium (137-145) mmol/L Carbon Dioxide (22-30) mmol/L BUN (7-17) mg/dL Glucose (74-99) mg/dL AST (14-36) U/L Troponin I 7.360 H* (0.000-0.034) ng/mL Total Protein (6.3-8.2) g/dL Albumin (3.5-5.0) g/dL Thrombosis Risk Factor Assmnt - DVT/VTE Prophylaxis DVT/VTE Prophylaxis: Pharmacologic Prophylaxis ordered Assessment and Plan Assessment: Acute non-ST elevated NV with elevated troponin level. Acute on chronic CHF with systolic dysfunction Bilateral pleural effusions Ischemic cardiomyopathy History of coronary artery status post multiple stent placement History of DVT currently on Pradaxa at home Hyperglycemia with uncontrolled diabetes type 2 History of CVA/TIA without much residual weakness. Fibromyalgia Hypertension Hyperlipidemia History of NV Rheumatoid arthritis and osteoarthritis Diabetic peripheral neuropathy Chronic back pain Degenerative disc disease Hiatal hernia IBS History of diverticulosis History of skin cancer removal Depression Obesity with BMI 30.1 Plan: Patient will be continued on telemetry monitoring and serial troponins levels. Will be started on heparin drip and 1 dose of IV Lasix will be given in the ER. Continue with aspirin and statins. Cardiology was consulted. Patient may need to be transferred to ICU for possible Lasix drip and monitor closely. Prognosis is guarded. Time with Patient: Greater than 30
[2020-02-05] MEDS ORDERED: propofoL 100 ML IV ONE (01:14)
[2020-02-05 01:52] LABS: ABG Base Excess -9.9 mmol/L; ABG HCO3 16 mmol/L (21-25); ABG Oxygen Saturation 99.5 % (94-97); ABG PCO2 30 mmHg (35-45); ABG PH 7.33 (7.35-7.45); ABG PO2 281 mmHg (83-108); ABG TCO2 17 mmol/L (19-24); Allen Test Performed? Yes
--- NOTE | 2020-02-05 02:10 | XR ---
EXAMINATION TYPE: XR chest 1V DATE OF EXAM: 02/05/2020 COMPARISON: 12/13/2019 HISTORY: Respiratory failure Check tube placement TECHNIQUE: Single view FINDINGS: There is endotracheal tube 2.5 cm from the joselito. There is nasogastric tube in the stomach . There are chest leads. There is pulmonary airspace edema. There is blunting of the costophrenic ang les. Bony thorax is intact. There is cervical spine fusion surgery. IMPRESSION: Congestive heart failure with pulmonary edema and pleural fluid is a change compared to o ld exam. Endotracheal tube in fairly good position.
[2020-02-05] MEDS: FUROSEMIDE 100 MG in SODIUM CHLORIDE 0.9% 90 ML IV SCH (03:51)
[2020-02-05 04:28] LABS: Basophils % (A) 0 %; Eosinophils # (A) 0.1 k/uL (0-0.7); Eosinophils % (A) 1 %; HCT 31.7 % (34.0-46.0); HGB 10.3 gm/dL (11.4-16.0); Hypochromasia Slight; Lymphocytes # (A) 1.3 k/uL (1.0-4.8); Lymphocytes % (A) 12 %; MCH 27.8 pg (25.0-35.0); MCHC 32.5 g/dL (31.0-37.0); MCV 85.5 fL (80.0-100.0); Mean Platelet Volume 8.3; Monocytes # (A) 0.7 k/uL (0-1.0); Monocytes % (A) 6 %; Neutrophils # (A) 8.6 k/uL (1.3-7.7); Neutrophils % (A) 79 %; Platelet Count 295 k/uL (150-450); RBC 3.71 m/uL (3.80-5.40); RDW 15.2 % (11.5-15.5); WBC 10.8 k/uL (3.8-10.6)
[2020-02-05 04:36] LABS: INR 1.2 (<1.2); Partial Thromboplastin Time 45.9 sec (22.0-30.0); Prothrombin Time 11.7 sec (9.0-12.0)
[2020-02-05 05:29] LABS: Glucose,Whole Blood 186 mg/dL (75-99)
[2020-02-05] MEDS: INSULIN ASPART (NovoLOG) 100 UNIT/ML VIAL SQ SCH ×6 (05:29→18:03)
[2020-02-05 05:32] LABS: Albumin 3.5 g/dL (3.5-5.0); Calcium 8.7 mg/dL (8.4-10.2); Magnesium 2.4 mg/dL (1.6-2.3); Phosphorus 5.7 mg/dL (2.5-4.5); Potassium 5.5 mmol/L (3.5-5.1); Total Bilirubin 0.7 mg/dL (0.2-1.3); Total Protein 5.8 g/dL (6.3-8.2)
[2020-02-05 05:45] LABS: ABG Base Excess -8.5 mmol/L; ABG HCO3 17 mmol/L (21-25); ABG Oxygen Saturation 98.7 % (94-97); ABG PCO2 29 mmHg (35-45); ABG PH 7.37 (7.35-7.45); ABG PO2 127 mmHg (83-108); ABG TCO2 18 mmol/L (19-24); Allen Test Performed? Yes
[2020-02-05] MEDS ORDERED: PANTOPRAZOLE 40 MG TABLET PO SCH (07:30)
[2020-02-05] MEDS: ASPIRIN 81 MG PO SCH (08:39)
[2020-02-05] MEDS ORDERED: METOPROLOL SUCCINATE (ER) 25 MG TAB.ER.24H PO SCH (09:00)
[2020-02-05] MEDS ORDERED: LIDOCAINE 1% INJ 10MG/ML (20 ML MDV) ONE ×2 (09:07→09:08)
[2020-02-05] MEDS ORDERED: SODIUM CHLORIDE 0.9% 500 ML 500 ML IV ONE ×2 (09:30→09:31)
[2020-02-05] MEDS ORDERED: LIDOCAINE 1% INJ 10MG/ML (20 ML MDV) SQ ONE (09:30)
[2020-02-05] MEDS ORDERED: MIDAZOLAM 2 MG/2 ML VIAL IVP ONE (09:32)
[2020-02-05] MEDS ORDERED: DEXTROSE 5% IN WATER 100 ML BAG IV ONE (09:35)
[2020-02-05] MEDS ORDERED: AMIODARONE 50 MG/ML 3 ML VIAL IV ONE ×2 (09:35→09:51)
[2020-02-05] MEDS ORDERED: BIVALIRUDIN BOLUS 250 MG/50 ML IV ONE (09:40)
[2020-02-05] MEDS ORDERED: METOPROLOL TARTRATE 5 MG/5 ML VIAL IVP ONE ×2 (09:41→09:47)
[2020-02-05] MEDS ORDERED: BIVALIRUDIN 250 MG in SODIUM CHLORIDE 0.9% 50 ML IV ONE (09:41)
[2020-02-05] MEDS ORDERED: TICAGRELOR 90 MG TAB ONE (09:42)
[2020-02-05] MEDS ORDERED: TICAGRELOR 90 MG TAB NG-TUBE ONE (09:48)
[2020-02-05] MEDS ORDERED: NOREPINEPHRINE 4 MG in SODIUM CHLORIDE 0.9% 250 ML IV ONE (09:55)
[2020-02-05] MEDS ORDERED: IOPAMIDOL-370 100ML BTL INJ ONE ×3 (09:55→10:32)
[2020-02-05] MEDS ORDERED: DEXTROSE 5% IN WATER 250 ML with AMIODARONE 300 MG IV ONE (10:00)
[2020-02-05 10:16] LABS: Allen Test Performed? Yes
[2020-02-05 10:18] LABS: ABG Base Excess -11.6 mmol/L; ABG HCO3 13 mmol/L (21-25); ABG Oxygen Saturation 99.2 % (94-97); ABG PCO2 27 mmHg (35-45); ABG PH 7.31 (7.35-7.45); ABG PO2 189 mmHg (83-108)
[2020-02-05] MEDS ORDERED: AMIODARONE 360 MG in DEXTROSE 5% IN WATER 200 ML IV ONE ×2 (10:25)
[2020-02-05] MEDS ORDERED: RX INFO: IV CONTRAST WAS GIVEN 1 EACH MISC MISCELLANE PRN (10:44)
[2020-02-05] MEDS ORDERED: NITROGLYCERIN SL TABS 0.4 MG TAB SUBLINGUAL PRN (10:44)
[2020-02-05] MEDS ORDERED: ATROPINE SULFATE 0.1 MG/ML 10ML SYRINGE IV PRN (10:44)
[2020-02-05] MEDS ORDERED: MAG HYDROX/AL HYDROX/SIMETH 30 ML CUP PO PRN (10:44)
[2020-02-05] MEDS ORDERED: ZOLPIDEM 5 MG TAB PO PRN (10:44)
[2020-02-05] MEDS ORDERED: SODIUM CHLORIDE 0.9% 1,000 ML IV SCH (10:45)
[2020-02-05] MEDS ORDERED: HEPARIN SODIUM,PORCINE 5,000 UNIT/ML 1 ML VIAL IV PRN (10:47)
[2020-02-05 11:24] LABS: ABG Base Excess -13.4 mmol/L; ABG HCO3 12 mmol/L (21-25); ABG Oxygen Saturation 96.5 % (94-97); ABG PH 7.39 (7.35-7.45); ABG PO2 88 mmHg (83-108); ABG TCO2 12 mmol/L (19-24)
[2020-02-05 11:26] LABS: Glucose,Whole Blood 287 mg/dL (75-99)
[2020-02-05 11:27] LABS: ABG PCO2 19 mmHg (35-45); Allen Test Performed? no
[2020-02-05] MEDS: HEPARIN SOD,PORK IN 0.45% NACL 25,000 UNIT in 0.45% NACL 1 250ML.BAG IV SCH (11:34)
--- NOTE | 2020-02-05 11:59 | XR ---
EXAMINATION TYPE: XR chest 1V confirm line [facility] DATE OF EXAM: 02/05/2020 COMPARISON: Prior chest x-ray 02/05/2020 HISTORY: Central venous catheter placement TECHNIQUE: Single frontal view of the chest is obtained. FINDINGS: There is been interval placement of a left jugular central venous catheter, distal tip is overlying the cavoatrial junction. There is no evident pneumothorax. There may be some improvement in aeration within the lungs. Intra-aortic balloon pump thought present overlying the transverse aorta. IMPRESSION: No evident complication status post central venous catheter placement, intra-aortic ball oon pump
--- NOTE | 2020-02-05 12:00 | ECHOF ---
Referral Reason:elevated troponin MEASUREMENTS -------- HEIGHT: 160.0 cm WEIGHT: 86.2 kg BP: IVSd: 1.5 cm (0.6 - 1.1) LVIDd: 5.2 cm (3.9 - 5.3) LVPWd: 1.1 cm (0.6 - 1.1) IVSs: 1.7 cm LVIDs: 4.4 cm LVPWs: 0.9 cm LAESV Index (A-L): 38.55 ml/m FINDINGS -------- Sinus rhythm. This was a technically adequate study. The left ventricular size is normal. There is moderate concentric left ventricular hypertrophy. O verall left ventricular systolic function is severely impaired with, an EF < 20%. Mid anterior LV w all motion is akinetic. Mid lateral LV wall motion is akinetic. Mid inferior LV wall motion is akinetic. Mid inferoseptal LV wall motion is akinetic. Mid anteroseptal LV wall motion is akine tic. Apical anterior LV wall motion is akinetic. Apical lateral LV wall motion is akinetic. Apical inferior LV wall motion is akinetic. Apical septum LV wall motion is akinetic. LA is moderately dilated 34-39 ml/m2 There is mild aortic valve sclerosis. There is mild aortic regurgitation. Mild mitral annular calcification present. Severe mitral regurgitation is present. Moderate to severe tricuspid regurgitation present. Unable to estimate RVSP due to inadequate TR je t spectral doppler profile. The pulmonic valve was not well visualized. There is no pericardial effusion. CONCLUSIONS -------- 1. There is moderate concentric left ventricular hypertrophy. 2. Overall left ventricular systolic function is severely impaired with, an EF < 20%. 3. Mid anterior LV wall motion is akinetic. 4. Mid lateral LV wall motion is akinetic. 5. Mid inferior LV wall motion is akinetic. 6. Mid inferoseptal LV wall motion is akinetic. 7. Mid anteroseptal LV wall motion is akinetic. 8. Apical anterior LV wall motion is akinetic. 9. Apical lateral LV wall motion is akinetic. 10. Apical inferior LV wall motion is akinetic. 11. Apical septum LV wall motion is akinetic. 12. There is mild aortic regurgitation. 13. Mild mitral annular calcification present. 14. Severe mitral regurgitation is present. 15. Moderate to severe tricuspid regurgitation present. 16. There is no pericardial effusion. STAVE BLOCK SPLITTER: Vicki Sherman RDCS
--- NOTE | 2020-02-05 12:03 | CC ---
CARDIAC CATHETERIZATION REPORT Mrs. Zazueta is a 79-year-old female known history of coronary artery disease, status post multiple stenting of the LAD and the right coronary artery. Last time she underwent an intervention was in 2018. She is followed on a regular basis by Dr. Ferraro. She presented yesterday to the hospital with symptoms of progressive dyspnea and evidence of non ST-segment elevation myocardial infarction. She had evidence of congestive heart failure requiring mechanical ventilation with pulmonary edema. Because of the elevation of troponin and her overall status, she was evaluated by Dr. Penn who has recommended cardiac catheterization. PROCEDURE: Patient was brought to the cook house laborer. She is intubated and sedated. Using Xylocaine anesthesia and Seldinger technique, a 6-[place]se sheath was introduced in the right femoral artery. Selective right and left coronary angiography performed using 6-[place] 4 bend left Rudy and 6-[place] FR4 guiding catheter. Images of the coronary arteries were obtained. Following that, cardiac catheters were removed. Images were reviewed. FINDINGS: Left main: This is a large-sized vessel bifurcating to left circumflex, left anterior descending artery. Left main coronary artery has no evidence of high-grade stenosis. Left anterior descending artery: This is a large-sized vessel, has a long stent in the proximal segment in mid segment with another stent in the mid distal segment. The proximal LAD proximal to the stent has a 50% stenosis at the distal edge of the stent. In the mid segment, there is a 99% stenosis with what appears to be intracoronary thrombus. The 2nd stent is patent, but there is intimal disease distal to it with area of stenosis of about 60%. The rest of the vessel has no high-grade stenosis. Left circumflex: This is a nondominant vessel, moderate in caliber, giving rise to an obtuse marginal branch of moderate caliber. The obtuse marginal branch has a 50% to 60% plaque. The rest of the vessel has no high-grade stenosis. Right coronary artery: This vessel is totally occluded proximally with ipsilateral collaterals to the distal segment. Collaterals: There is collateral from the left coronary system filling up the right PLV and PDA. Left ventriculogram: Left ventriculogram was not performed. CONCLUSION: 1. Chronic occluded proximal and mid right coronary artery with collateral from the left system. 2. Subtotally occluded mid left anterior descending in the distal segment of the stented area. 3. Mild disease in the left circumflex. RECOMMENDATION: In view of finding anatomy, I recommend proceeding with angioplasty and stenting of the LAD. MMODL / IJN: [id number] /
--- NOTE | 2020-02-05 12:11 | PTCA ---
PERCUTANEOUSTRANS CORORONARY ANGIOGRAPHY Mrs. Zazueta is a 79-year-old female with known history of coronary artery disease, history of hypertension, hyperlipidemia, diabetes mellitus, who presented with congestive heart failure and pulmonary edema requiring mechanical ventilation with evidence of non ST-segment elevation myocardial infarction. She was brought into the chemical laboratory assistant, intubated, hemodynamically borderline with a low blood pressure and evidence of cardiogenic shock. She underwent cardiac catheterization and was found to have significant stenosis in the LAD. In view of that, recommendation was made regarding angioplasty and stenting of the LAD. PROCEDURE: A 6-Romanian FR4 guiding catheter was introduced into the system. After cannulating the left main, a 0.014 balanced medium weight J-wire was advanced across the lesion, positioned distally, then a 2.5 x 12 mm NC Emerge balloon was advanced and one inflation at 10 atmospheres was done. Following that the balloon was removed and a 2.75 x 18 mm Xience Hemalatha stent was deployed, post dilated at 16 atmospheres. Following that the balloon was removed and a 3.0 x 15 mm NC Trek balloon was advanced and multiple inflation and stented segment at a maximum of 14 atmospheres was done. After the last inflation, after appropriate wait, the balloon and guidewire were withdrawn back in the guiding catheter. Images were obtained and revealed stable successful angioplasty and stenting. At that point, using a guidewire exchange technique, the 6-Romanian sheath in the right femoral artery was exchanged to the intra- aortic balloon sheath and the intra-aortic balloon pump was introduced, positioned under fluoroscopy and secured in place. The patient was returned to her room in stable condition. Of note, during the procedure, the patient had runs of nonsustained ventricular tachycardia. She received intravenous beta faith as well as was started on IV amiodarone. She had low blood pressure and was started on IV Levophed. At the end of the procedure, her blood pressure stabilized with intra-aortic balloon pump. She received an oral loading dose of Brilinta, as well as Angiomax per protocol. RESULTS: 1. Successful stenting of the mid LAD with reduction of stenosis from 99% to 0%. 2. Cardiogenic shock with intra-aortic balloon pump placement. RECOMMENDATIONS: The patient will be continued on Brilinta, aspirin and statin with low-dose beta faith. Close followup for renal function were done. The intra-aortic balloon pump will be continued. Unfortunately, the prognosis is guarded. I have discussed those finding in detail with her . She had an echocardiogram done in the cardiac catheterization laboratory that showed severely impaired left ventricular systolic function, severe mitral and tricuspid regurgitation. Duration of procedure is 66 minutes. BLANK / ROXANN: [id number] /
--- NOTE | 2020-02-05 12:17 | LTR ---
February 04, 2020 RE: Marie Zazueta Dear Dr. Julian: I proceeded to perform cardiac catheterization and coronary angioplasty and stenting on Mrs. Zazueta at [facility] on the 04 of February. A full copy of the procedure note will be forwarded to you. In brief, she was found to have subtotally occluded LAD in a setting of cardiogenic shock and respiratory failure requiring mechanical ventilation. She underwent stenting of the LAD with placement of intra-aortic balloon pump. I am hopeful that her status will stabilize, although unfortunately at this time, her prognosis is quite poor. I will keep you updated on progress. Thank you again for allowing me to participate in this patients medical care. Please feel free to call me with any questions. Sincerely yours, William Valenzuela M.D. BLANK / ROXANN: [id number] /
[2020-02-05 12:22] LABS: Basophils % (A) 0 %; Eosinophils % (A) 0 %; HCT 30.9 % (34.0-46.0); HGB 9.9 gm/dL (11.4-16.0); Hypochromasia Slight; Lymphocytes # (A) 1.5 k/uL (1.0-4.8); Lymphocytes % (A) 11 %; MCH 28.2 pg (25.0-35.0); MCHC 32.2 g/dL (31.0-37.0); MCV 87.6 fL (80.0-100.0); Mean Platelet Volume 8.3; Monocytes % (A) 8 %; Neutrophils # (A) 10.2 k/uL (1.3-7.7); Neutrophils % (A) 79 %; Platelet Count 327 k/uL (150-450); RBC 3.52 m/uL (3.80-5.40); RDW 15.3 % (11.5-15.5)
--- NOTE | 2020-02-05 12:28 | P.CNPUL ---
History of Present Illness Consult date: 02/05/20 Reason for consult: dyspnea History of present illness: This is a 79-year-old female patient was multiple medical positive comorbidities including history of coronary artery disease and the patient has undergone multiple coronary stenting of the LAD and RCA in the past last cardiac catheterization was in 2018. The patient came into the emergency department yesterday with progressive worsening shortness of breath. The patient was found to be CHF. The patient also was found to have an acute non-ST segment myocardial infarction. Troponins were quite elevated. The patient apparently had been having worsening shortness of breath for the past 3 days. Subsequently, shortness of breath became constant and she also expressed some chest pain. Her EKG showed T-wave inversions in the lateral precordial leads. The patient had normal troponin and a troponin peaked at 44 and the patient had a elevated proBNP level of 16,500. The patient underwent a CT angiogram that showed no evidence of any pulmonary embolism. There is some market groundglass bilateral opacities in bilateral pleural effusion consistent with CHF. The patient also had a CAT scan of the abdomen and pelvis that showed again bilateral pleural effusion without any similar significant abnormalities. The patient was admitted to the ICU and the patient was placed on a combination of aspirin and IV heparin. The patient was also started on Lasix drip at 10 mg an hour. Urine output this morning was quite low and the patient was having diminished pulses in all 4 extremities and extremities were cold and clammy. An echocardiogram at the bedside and the patient was found to have an ejection fraction of less than 20%. There was several segmental wall motion abnor malities including the midanterior LV wall, lateral wall, a few wall, anteroseptal wall, anteroseptal wall, apical and there was evidence of severe mitral regurgitation and moderate tricuspid regurgitation. Overnight, the patient became progressively more short of breath and the patient had to be i ntubated and placed on a mechanical ventilator. This morning, the patient was sedated with propofol. She was assist-control mode of ventilation with a rate of 20 with tidal volume of 400 and FiO2 of 40% with a PEEP of 5. Blood gases showed a pH of 7.37 with a pCO2 of 29 and pO2 127. She was not requiring any pressors. Arterial line was in place. Case discussed with cardiology. The patient was taken to the [facility] and the patient underwent a cardiac catheterization. During the procedure, the patient became hypotensive and the patient developed episodes of V. tach. An intra-aortic balloon pump was inserted as the patient went into cardiogenic shock. Also, the patient was started on amiodarone drip at 1 mg per minute. The patient completed the procedure and she was found to have chronic chronically occluded proximal and mid RCA with collaterals from the left system. There was subtotal occlusion of the mid LAD and distal segment of the stented area. There was mild disease in the circumflex. And depressed and stenting of the LAD was done. Following this, the patient was brought into the intensive care unit I had to see the patient back following her cardiac catheterization and stenting. The patient was an obvious cardiac shock on intra-aortic balloon pump. I establish a triple lumen catheter in the patient is currently on norepinephrine infusion at 0.15 g per KG per minute. The patient is also on intra-aortic balloon pump with one-to-one augmentation and a augmented blood pressure of 113/50. I was able to modify tidal volume to 500 and The PEEP at 5 with an FiO2 of 40% at the rate of 20. The patient was then amiodarone drip and a cardiac rhythm was sinus. Troponin is running at 25 mg per KG per minute. Extremities are still cold and clammy/in lower oximetry is bilaterally. Chest x-ray post-line insertion showed CHF/pulmonary edema. There was adequate positioning of the orotracheal tube and the triple-lumen catheter. Blood gases and rest of the blood work is still pending for now. Review of Systems ROS unobtainable: due to endotracheal tube Past Medical History Past Medical History: Coronary Artery Disease (CAD), Chest Pain / Angina, CVA/TIA, Diabetes Mellitus, Deep Vein Thrombosis (DVT), Eye Disorder, Fibromyalgia, Hyperlipidemia, Hypertension, Myocardial Infarction ([place]), Osteoarthritis (OA), Rheumatoid Arthritis (RA) Additional Past Medical History / Comment(s): -Coronary artery disease with prior stent-multiple. -Diabetes mellitus type 2. -Chronic fibromyalgia. - Hyperlipidemia. -Essential hypertension. -Peripheral neuropathy from diabetes. -Chronic hiatal hernia. -Irritable bowel syndrome. -Chronic diverticulosis. -Obesity BMI 32.1. -Left renal calculi-asymptomatic. -Recurrent DVTs. -Large hiatal hernia. - skin cancer with removal, shingelle "break outs," skin itching (whole body). - chronic back pain. -CHF , EF 45% and mild moderate AR and MR. - Dementia. -RLS Last Myocardial Infarction Date:: 2017 History of Any Multi-Drug Resistant Organisms: None Reported Past Surgical History: Appendectomy, Cholecystectomy, Heart Catheterization, Heart Catheterization With Stent, Hernia Repair, Hysterectomy, Tonsillectomy Additional Past Surgical History / Comment(s): PCI with multiple stents(6-7), ventral hernia repair, colonoscopy, bilateral cataract removals, skin cancer removals. Past Anesthesia/Blood Transfusion Reactions: No Reported Reaction Date of Last Stent Placement:: 2017 Past Psychological History: Depression Past Alcohol Use History: None Reported Past Drug Use History: None Reported - Past Family History Father Additional Family Medical History / Comment(s): pt stated had heart issues, but not sure what Mother Additional Family Medical History / Comment(s): leaking valve Medications and Allergies Home Medications Medication Instructions Recorded Confirmed Type Cevimeline [Evoxac] 30 mg PO BID 04/29/14 02/04/20 History valACYclovir [Valtrex] 500 mg PO DAILY 12/01/17 02/04/20 History Nitroglycerin Sl Tabs [Nitrostat] 0.4 mg SUBLINGUAL Q5M PRN tab 01/11/18 02/04/20 Rx Insulin Glargine,Hum.rec.anlog 10 unit SQ HS 07/18/18 02/04/20 History [Lantus Solostar] rOPINIRole HCL [Requip] 0.25 mg PO HS 07/18/18 02/04/20 History Loratadine [Claritin] 10 mg PO DAILY PRN 02/01/19 02/04/20 History Memantine [Namenda] 10 mg PO BID 03/25/19 02/04/20 History Zolpidem [Ambien] 5 mg PO HS PRN tab 03/27/19 02/04/20 Rx Dabigatran [Pradaxa] 150 mg PO BID #60 capsule 05/13/19 02/04/20 Rx Atorvastatin [Lipitor] 40 mg PO HS 11/02/19 02/04/20 History Cromolyn 4% Eye Drops 1 drop BOTH EYES DAILY 11/02/19 02/04/20 History DULoxetine HCL [Cymbalta] 60 mg PO DAILY 11/02/19 02/04/20 History Fluticasone Nasal [place] [Flonase 2 spr EA NOSTRIL DAILY PRN 11/02/19 02/04/20 History Nasal [place]] Furosemide [Lasix] 20 mg PO DAILY 11/02/19 02/04/20 History Gabapentin [Neurontin] 300 mg PO TID 11/02/19 02/04/20 History Lisinopril [Zestril] 2.5 mg PO DAILY 11/02/19 02/04/20 History Metoprolol Succinate [Toprol XL] 25 mg PO DAILY 11/02/19 02/04/20 History Omeprazole [PriLOSEC] 40 mg PO DAILY 11/02/19 02/04/20 History Primidone [Mysoline] 25 mg PO HS 11/02/19 02/04/20 History Sennosides [Senokot] 8.6 mg PO DAILY PRN 11/02/19 02/04/20 History busPIRone HCL 10 mg PO BID 11/02/19 02/04/20 History Aspirin 81 mg PO DAILY #30 chewable 11/04/19 02/04/20 Rx Insulin Lispro [humaLOG Kwikpen] 5 unit SQ AC-TID 12/14/19 02/04/20 History Insulin Lispro [humaLOG Kwikpen] See Protocol SQ AC-TID 12/14/19 02/04/20 History Terazosin [Hytrin] 1 mg PO HS 12/14/19 02/04/20 History HYDROcodone/APAP 5-325MG [[place] 1 tab PO BID 02/04/20 02/04/20 History 5-325] Ibuprofen [Motrin] 800 mg PO Q8H PRN 02/04/20 02/04/20 History fentaNYL 12MCG/HR PATCH [Duragesic 1 patch TRANSDERM Q72H 02/04/20 02/04/20 History 12MCG/HR] hydrOXYzine HCL [Atarax] 25 mg PO TID 02/04/20 02/04/20 History Allergies Allergy/AdvReac Type Severity Reaction Status Date / Time etanercept [From Enbrel] Allergy Rash/Hives Verified 02/04/20 15:14 hydroxyzine [From Atarax] Allergy Unknown Verified 02/04/20 15:14 latex Allergy Itching Verified 02/04/20 15:14 Sulfa (Sulfonamide Allergy Rash/Hives Verified 02/04/20 15:14 Antibiotics) tape Allergy Rash/Hives Uncoded 02/04/20 14:03 Physical Exam Vitals: Vital Signs Temp Pulse Resp BP Pulse Ox 02/05/20 07:00 96 21 94/69 95 02/05/20 06:00 94 20 95/67 96 02/05/20 05:00 93 20 89/78 99 02/05/20 04:00 98.3 F 92 20 87/63 98 02/05/20 03:00 93 20 86/54 98 02/05/20 02:00 92 20 86/70 97 02/05/20 01:00 95 23 96/66 96 02/05/20 00:18 96 37 H 96/66 98 02/05/20 00:00 97.8 F 93 19 111/68 94 L 02/04/20 23:00 100 28 H 111/68 94 L 02/04/20 22:00 107 H 28 H 122/87 96 02/04/20 21:00 105 H 24 123/72 94 L 02/04/20 20:00 98 F 100 23 100/73 95 02/04/20 19:00 104 H 27 H 92/65 96 02/04/20 18:04 107 H 20 108/65 100 02/04/20 17:30 109 H 20 122/66 97 02/04/20 16:30 101 H 28 H 105/72 97 02/04/20 16:00 109 H 27 H 110/60 98 02/04/20 15:30 109 H 27 H 118/77 98 02/04/20 15:00 113/84 02/04/20 14:30 108 H 18 133/70 91 L 02/04/20 14:08 105 H 24 96 02/04/20 13:55 98 F 110 H 24 102/70 96 Intake and Output 02/04/20 02/05/20 02/05/20 22:59 06:59 14:59 Intake Total 90 443.548 30 Output Total 105 153 20 Balance -15 290.548 10 Intake: IV 90 240 30 Furosemide 100 mg In 30 80 10 Sodium Chloride 0.9% 90 ml @ 10 MG/HR 10 mls/hr IV .Q10H [facility] Rx#: [id number] KVO 60 160 20 Intake, IV Titration 203.548 Amount Furosemide 100 mg In 83.333 Sodium Chloride 0.9% 90 ml @ 10 MG/HR 10 mls/hr IV .Q10H [facility] Rx#: [id number] Heparin Sod,Pork in 0.45% 64 NaCl 25,000 unit In 0.45 % NaCl 1 250ml.bag @ 12 UNITS/KG/HR 9.253 mls/hr IV .Q24H [facility] Rx#: [id number] Propofol 1,000 mg In 56.215 Empty Bag 1 bag @ Titrate IV .Q0M [facility] Rx#: [id number] Output: Urine 105 153 20 Other: Voiding Method Indwelling Catheter Indwelling Catheter Weight 77.111 kg 86.3 kg ABP, PAP, CO, CI - Last 8 Hours Arterial Blood Pressure 97/50 Arterial Blood Pressure 101/56 Arterial Blood Pressure 105/59 Arterial Blood Pressure 97/55 Arterial Blood Pressure 96/55 Arterial Blood Pressure 92/52 Gen. appearance the patient is intubated, comfortable likely distress sedated with propofol. Orogastric and orotracheal tube are both in place. Head exam was generally normal. There was no scleral icterus or corneal arcus. Mucous membranes were moist. Neck was supple and with jugular venous distension, thyromegaly, or carotid bruits. Carotids were easily palpable bilaterally. There was no adenopathy. Patient has bilateral JVDs. No goiter or neck masses. Lungs sounds are diminished bilaterally. The breath sounds are equal and symmetrical. No wheezes. No rhonchi. Heart sounds are distant, the patient has an intra-aortic balloon pump with one-to-one augmentation. No significant murmurs could be appreciated. Abdominal exam revealed normal bowel sounds. The abdomen was soft, non-tender, and without masses, organomegaly, or appreciable enlargement of the abdominal aorta. Extremities are cold and clammy and there are diminished pulses no friction especially lower extremities bilaterally. No cyanosis. No clubbing. Examination of the skin revealed no evidence of significant rashes, suspicious appearing nevi or other concerning lesions. Neurologically the patient is sedated and calm and comfortable currently on propofol. The patient has a left IJ triple-lumen catheter which is also in place. The patient has a intra-aortic balloon pump in the femoral artery. Results - Laboratory Findings CBC and BMP: 02/05/20 04:10 02/05/20 04:10 ABG ABG pH 7.37 (7.35-7.45) 02/05/20 05:40 ABG pCO2 29 mmHg (35-45) L 02/05/20 05:40 ABG pO2 127 mmHg (83-108) H 02/05/20 05:40 ABG O2 Saturation 98.7 % (94-97) H 02/05/20 05:40 PT/INR, D-dimer PT 11.7 sec (9.0-12.0) 02/05/20 04:10 INR 1.2 (<1.2) H 02/05/20 04:10 D-Dimer 3.17 mg/L FEU (<0.60) H 02/04/20 14:20 Abnormal lab findings: Abnormal Labs 02/04/20 02/04/20 02/04/20 14:20 14:20 14:20 WBC RBC 3.55 L Hgb 9.6 L D Hct 31.0 L MCHC 30.9 L Neutrophils # 8.0 H Lymphocytes # 0.8 L INR APTT 20.7 L D-Dimer 3.17 H ABG pH ABG pCO2 ABG pO2 ABG HCO3 ABG Total CO2 ABG O2 Saturation Sodium 133 L Potassium Carbon Dioxide 15 L BUN 22 H Creatinine Glucose 291 H POC Glucose (mg/dL) Phosphorus Magnesium AST 98 H ALT Troponin I Total Protein 5.6 L Albumin 3.3 L 02/04/20 02/04/20 02/04/20 14:20 17:51 18:48 WBC RBC Hgb Hct MCHC Neutrophils # Lymphocytes # INR APTT D-Dimer ABG pH ABG pCO2 ABG pO2 ABG HCO3 ABG Total CO2 ABG O2 Saturation Sodium Potassium Carbon Dioxide BUN Creatinine Glucose POC Glucose (mg/dL) 251 H Phosphorus Magnesium AST ALT Troponin I 7.360 H* 27.100 H* Total Protein Albumin 02/04/20 02/04/20 02/04/20 20:07 21:53 21:53 WBC RBC Hgb Hct MCHC Neutrophils # Lymphocytes # INR APTT 76.1 H D-Dimer ABG pH ABG pCO2 ABG pO2 ABG HCO3 ABG Total CO2 ABG O2 Saturation Sodium Potassium Carbon Dioxide BUN Creatinine Glucose POC Glucose (mg/dL) 243 H Phosphorus Magnesium AST ALT Troponin I 44.300 H* Total Protein Albumin 07/02/05/20 02/05/20 01:46 04:10 04:10 WBC 10.8 H RBC 3.71 L Hgb 10.3 L Hct 31.7 L MCHC Neutrophils # 8.6 H Lymphocytes # INR 1.2 H APTT 45.9 H D-Dimer ABG pH 7.33 L ABG pCO2 30 L ABG pO2 281 H ABG HCO3 16 L ABG Total CO2 17 L ABG O2 Saturation 99.5 H Sodium Potassium Carbon Dioxide BUN Creatinine Glucose POC Glucose (mg/dL) Phosphorus Magnesium AST ALT Troponin I Total Protein Albumin 02/05/20 02/05/20 02/05/20 04:10 05:27 05:40 WBC RBC Hgb Hct MCHC Neutrophils # Lymphocytes # INR APTT D-Dimer ABG pH ABG pCO2 29 L ABG pO2 127 H ABG HCO3 17 L ABG Total CO2 18 L ABG O2 Saturation 98.7 H Sodium 132 L Potassium 5.5 H Carbon Dioxide 17 L BUN 30 H Creatinine 1.58 H Glucose 182 H POC Glucose (mg/dL) 186 H Phosphorus 5.7 H Magnesium 2.4 H AST 440 H ALT 194 H Troponin I Total Protein 5.8 L Albumin - Diagnostic Findings Chest x-ray: image reviewed Assessment and Plan Plan: 1 acute non-STEMI post cardiac catheterization and post stenting of a subtotally occluded mid LAD and distal segment of the stented area. The patient was also found to have chronically occluded proximal and mid RCA with collateral system from the left. 2 cardiogenic shock secondary to above. Patient ejection fraction is less then 20% and the patient has segmental wall motion abnormalities based on echocardiogram. There is also evidence of severe mitral regurgitation. The patient currently has an intra-aortic balloon pump with one-to-one augmentation. The patient is quite hypotensive and the blood pressures augmented for now and the patient is also norepinephrine infusion at 0.15 mg per KG per minute. 3 hypotension secondary to above 4 acute kidney injury secondary to above. There is obvious cardiorenal factors in addition to that the patient had taken significant amount of contrast due to CT angiograms and cardiac catheterizations. 5 V. tach during cardiac catheterization and the patient is currently on am iodarone drip. The current cardiac rhythm is sinus. 6 acute hypoxic respiratory failure secondary to above and the patient is currently intubated on a mechanical ventilator , this is secondary to pulmonary edema and cardiogenic shock 7 non-anion gap metabolic acidosis 8 known history of coronary artery disease with multiple coronary stenting in the past 9 diabetes mellitus type 2 10 chronic fibromyalgia 11 hyperlipidemia 12 history of hypertension 13 history of a large chronic hiatal hernia 14 history of colonic diverticulosis and irritable bowel disease 15 history of left renal calculi, symptomatic 16 history of recurrent DVTs and the patient has not been taking Pradaxa on an outpatient basis 17 history of skin cancer 18 history of chronic back pain 19 history of dementia on Namenda 20 history of restless 6 syndrome and tremors Plan Condition is critical Continue vent support and awaiting the blood gases the necessity ventilator changes will be done Triple-lumen catheter has been established Keep the intra-aortic balloon pump for 1 additional cardiac output and the blood pressure Continue with pressors IV Lasix 40 mg every 8 hours Monitor renal function repeated the blood work and electrolytes Continue aspirin and Brilinta Continue amiodarone drip loading and maintenance Echocardiogram was noted NovoLog insulin size. Coverage We'll continue to follow make further recommendations based on her progress. Condition is critical. This evaluation was done and more than 1 hour. Time with Patient: Greater than 30
--- NOTE | 2020-02-05 12:30 | P.PCN ---
Date of Procedure: 02/05/20 Preoperative Diagnosis: Acute cardiogenic shock Postoperative Diagnosis: Acute cardiogenic shock Procedure(s) Performed: Central line insertion Anesthesia: local Surgeon: Loretta Bruce Estimated Blood Loss (ml): 0 Pathology: none sent Condition: critical Disposition: ICU Operative Findings: Indication: Hemodynamic monitoring/Intravenous access. A time-out was completed verifying correct patient, procedure, site, positioning, and implant(s) or special equipment if applicable. The patient was placed in a dependent position appropriate for central line placement based on the vein to be cannulated. The patient left shoulder neck was prepped and draped in sterile fashion. 1% Lidocaine was used to anesthetize the surrounding skin area. A triple lumen 9F Cordis catheter was introduced into the left IJ internal jugular or common femoral] vein using Seldinger tech nique. The catheter was threaded smoothly over the guide wire and appropriate blood return was obtained. Each lumen of the catheter was evacuated of air and flushed with sterile saline. The catheter was then sutured in place to the skin and a sterile dressing applied. Perfusion to the extremity distal to the point of catheter insertion was checked and found to be adequate. The patient tolerated the procedure well and there were no complications.
[2020-02-05 12:32] LABS: Albumin 2.8 g/dL (3.5-5.0); Calcium 7.9 mg/dL (8.4-10.2); INR 3.5 (<1.2); Magnesium 2.1 mg/dL (1.6-2.3); Potassium 5.8 mmol/L (3.5-5.1); Prothrombin Time 34.4 sec (9.0-12.0); Total Bilirubin 0.7 mg/dL (0.2-1.3)
[2020-02-05] MEDS ORDERED: METOPROLOL TARTRATE 5 MG/5 ML VIAL IVP STA (12:53)
[2020-02-05] MEDS: DULoxetine HCL 60 MG CAPSULE.DR PO SCH (13:06)
[2020-02-05] MEDS: CROMOLYN 4% BOTH EYES SCH (13:06)
[2020-02-05] MEDS: CHLORHEXIDINE GLUCONATE 15 ML CUP MUCOUS MEM SCH ×2 (13:06→20:21)
[2020-02-05] MEDS: EYE BOTH EYES SCH (13:06)
[2020-02-05] MEDS: GABAPENTIN 300 MG CAP PO SCH ×3 (13:06→22:05)
[2020-02-05] MEDS: METOPROLOL TARTRATE 12.5 MG TAB PO SCH ×3 (13:06→22:05)
[2020-02-05 13:18] LABS: Glucose,Whole Blood 253 mg/dL (75-99)
[2020-02-05] MEDS: PANTOPRAZOLE 40 MG/10 ML VIAL IVP SCH (13:20)
[2020-02-05] MEDS: NOREPINEPHRINE 32 MG in SODIUM CHLORIDE 0.9% 218 ML IV SCH (14:12)
--- NOTE | 2020-02-05 14:23 | PN ---
PROGRESS NOTE This lady came in yesterday with congestive heart failure and was evaluated by Dr. Ferraro in the emergency room. She had a previous stenting of LAD and RCA. RCA stent was performed in 2018 here and LAD was performed at another facility in the past. However, her initial troponin was 7. It appeared that she had pain for 36-48 hours before but after her hospitalization her shortness of breath got worse and she was intubated and placed on a ventilator. Her troponin has gone up significantly. I am recommending coronary angiography while she is on the vent to see if there is any salvageable myocardium. I discussed my thoughts in detail with Dr. Valenzuela who will perform the cardiac cath. Risk is very high. Prognosis is poor. LV function is impaired. She has significant multivessel disease. She has a known previous stenting of RCA and circumflex. RCA was performed by Dr. Valenzuela in 2018. She is not on any pressors. She is on amiodarone drip and her urine output has decreased. Creatinine has gone up to 1.58. She also had a CT angiogram yesterday. Blood pressure today is about 108 systolic. S1-S2 heard normally. Tachycardia noted. Short systolic murmur noted. Lungs reveal ventilator assisted breath sounds. Abdomen is soft. Lower extremities reveal diminished pulses. IMPRESSION: 1. A non ST elevation myocardial infarction with cardiogenic shock type picture. 2. History of prior multivessel percutaneous coronary intervention. 3. Probably has some prerenal azotemia, as well as a dye induced worsening of renal function. She had a CT angio yesterday performed and this did not reveal any evidence of pulmonary embolism. RECOMMENDATION: I am recommending coronary angiography and based on findings, intervention and if she may require intra-aortic balloon pump as well based on the clinical picture. Prognosis remains poor. I will speak to the patient's family or Dr. Valenzuela will speak to them after the procedure. MMODL / IJN: [id number] /
[2020-02-05] MEDS: MEMANTINE 10 MG TAB PO SCH (15:49)
[2020-02-05] MEDS: HYDROcodone/APAP 5-325MG 1 EACH TAB PO SCH (15:50)
[2020-02-05] MEDS: busPIRone HCl 10 MG TAB PO SCH (15:50)
[2020-02-05] MEDS ORDERED: SODIUM CHLORIDE 0.9% 500 ML 250 ML IV ONE (16:12)
[2020-02-05] MEDS: FUROSEMIDE 10 MG/ML 4 ML VIAL IV SCH ×2 (16:37→23:46)
[2020-02-05] MEDS: AMIODARONE 360 MG in DEXTROSE 5% IN WATER 200 ML IV SCH ×4 (17:35→23:54)
[2020-02-05 17:58] LABS: Glucose,Whole Blood 221 mg/dL (75-99)
[2020-02-05] MEDS: ATORVASTATIN 80 MG TAB PO SCH (20:21)
[2020-02-05] MEDS: TICAGRELOR 90 MG TAB PO SCH (20:22)
[2020-02-05 23:47] LABS: Glucose,Whole Blood 161 mg/dL (75-99)
[2020-02-06] MEDS: INSULIN ASPART (NovoLOG) 100 UNIT/ML VIAL SQ SCH ×4 (00:06→18:39)
[2020-02-06 01:22] LABS: Potassium 5.5 mmol/L (3.5-5.1)
[2020-02-06 04:13] LABS: Basophils % (A) 0 %; Eosinophils % (A) 0 %; HCT 32.7 % (34.0-46.0); HGB 10.3 gm/dL (11.4-16.0); Hypochromasia Slight; Lymphocytes # (A) 2.1 k/uL (1.0-4.8); Lymphocytes % (A) 9 %; MCH 27.2 pg (25.0-35.0); MCHC 31.6 g/dL (31.0-37.0); Mean Platelet Volume 8.8; Monocytes # (A) 2.2 k/uL (0-1.0); Monocytes % (A) 10 %; Neutrophils % (A) 77 %; Platelet Count 263 k/uL (150-450); RDW 15.3 % (11.5-15.5); WBC 22.1 k/uL (3.8-10.6)
[2020-02-06 05:03] LABS: Albumin 3.1 g/dL (3.5-5.0); Calcium 7.9 mg/dL (8.4-10.2); Potassium 5.7 mmol/L (3.5-5.1); Total Bilirubin 1.5 mg/dL (0.2-1.3); Total Protein 5.4 g/dL (6.3-8.2)
[2020-02-06 05:24] LABS: ABG Base Excess -19.5 mmol/L; ABG Oxygen Saturation 93.1 % (94-97); ABG PH 7.25 (7.35-7.45); ABG PO2 79 mmHg (83-108); ABG TCO2 8 mmol/L (19-24)
[2020-02-06] MEDS ORDERED: SODIUM BICARB 8.4% 50 ML SYR (1 MEQ/ML) IV STA (05:38)
[2020-02-06] MEDS: AMIODARONE 360 MG in DEXTROSE 5% IN WATER 200 ML IV SCH ×4 (05:41→14:04)
[2020-02-06] MEDS ORDERED: SODIUM BICARB 8.4% 50 ML SYR (1 MEQ/ML) ONE (05:44)
[2020-02-06 05:45] LABS: Allen Test Performed? no
[2020-02-06 06:01] LABS: Glucose,Whole Blood 134 mg/dL (75-99)
[2020-02-06 06:19] LABS: INR 2.3 (<1.2); Partial Thromboplastin Time 63.2 sec (22.0-30.0); Prothrombin Time 22.2 sec (9.0-12.0)
[2020-02-06] MEDS ORDERED: INSULIN REGULAR 100 UNIT/ML VIAL IV ONE (06:19)
[2020-02-06] MEDS ORDERED: FUROSEMIDE 10 MG/ML 10 ML VIAL IV STA (06:19)
[2020-02-06] MEDS ORDERED: DEXTROSE 50% SYRINGE 50 ML IVP STA (06:19)
[2020-02-06] MEDS: DEXTROSE 5% IN WATER 1,000 ML with SODIUM BICARB (1 MEQ/ML) 150 ML IV SCH (06:24)
[2020-02-06] MEDS: ASPIRIN 81 MG PO SCH (08:11)
[2020-02-06] MEDS: TICAGRELOR 90 MG TAB PO SCH ×2 (08:11→20:38)
[2020-02-06] MEDS: METOPROLOL TARTRATE 12.5 MG TAB PO SCH ×3 (08:11→21:58)
[2020-02-06] MEDS: PANTOPRAZOLE 40 MG/10 ML VIAL IVP SCH (08:11)
[2020-02-06] MEDS: DULoxetine HCL 60 MG CAPSULE.DR PO SCH (08:11)
[2020-02-06] MEDS: CHLORHEXIDINE GLUCONATE 15 ML CUP MUCOUS MEM SCH ×2 (08:11→20:38)
[2020-02-06] MEDS: GABAPENTIN 300 MG CAP PO SCH ×3 (08:13→21:58)
--- NOTE | 2020-02-06 08:44 | XR ---
EXAMINATION TYPE: XR chest 1V portable DATE OF EXAM: 02/06/2020 COMPARISON: Chest radiograph 02/05/2020 HISTORY: Tube placement TECHNIQUE: Single frontal view of the chest is obtained. FINDINGS: Endotracheal tube distal tip at the level of the clavicular heads, 3.0 cm from the joselito. Right-sided internal jugular central venous catheter distal tip over the cavoatrial junction. Intra- aortic balloon pump marker again overlies the aortic arch. Enteric tube coursing over the left upper quadrant off the inferior most aspect of the image with nonvisualization of the distal tip. Cervical spine fixation hardware. Mildly decreased pulmonary vascular congestion. Small bilateral pleural effu sions, right greater than left not significantly changed. IMPRESSION: Tubes and lines not significantly changed in radiographic position. 1. Mildly decreased pulmonary vascular congestion. 2. Persistent small bilateral pleural effusions, right greater than left.
[2020-02-06] MEDS: CROMOLYN 4% BOTH EYES SCH (08:49)
[2020-02-06] MEDS: EYE BOTH EYES SCH (08:49)
--- NOTE | 2020-02-06 09:22 | PN ---
PROGRESS NOTE Mrs. Zazueta is a lady with ischemic cardiomyopathy, presented with a non-ST elevation CA. Has total occlusion of RCA and nondominant circumflex and diseased LAD, which was stented yesterday. She is on a balloon pump, augmented pressure is about 100 systolic. Urine output is almost zero. The creatinine has gone up to more than 2.5. She is on 30 mics of Levophed. Overall patient is not doing well. We are dealing with a pump failure and poor coronary vasculature. I will speak to the patient's when he is here and will recommend comfort care if she does not make any meaningful improvement. Heart rate is about 80 per minute. She has no further runs of ventricular tachycardia, but she is having isolated PVCs, sometimes in a bigeminal fashion. JVD is evident. S1-S2 heard normally. Short systolic murmur is audible at the left lower sternal border and apex. Lungs revealed a ventilator assisted breath sounds. Abdomen is distended. Lower extremities reveal Doppler pulses. ASSESSMENT: 1. The patient has acute myocardial infarction with cardiogenic shock with RCA occlusion and stented LAD with a nondominant circumflex. 2. History of multiple comorbid conditions. PLAN: I will recommend that we continue current supportive care with a combination of Levophed and the intra-aortic balloon pump, but we will speak to the family to see if we should consider comfort care, given the fact that her LV systolic function is impaired and her coronary circulation is also quite limited under the circumstances. Prognosis remains poor. We will continue current medical regimen, supportive care, and I will speak to the family. Also discussed with Dr. Bruce. Will reduce the amiodarone to 0.5 mg drip. MMODL / IJN: [id number] / Addendum: Spoke with Pt's , explained the situation and poor prognosis. He understands. Will continue current efforts and their children will come later today and will decide on Comfort care tomorrow if no improvement. Dialysis is a consideration if she tolerates. MTDD
[2020-02-06] MEDS: NOREPINEPHRINE 32 MG in SODIUM CHLORIDE 0.9% 218 ML IV SCH (09:44)
[2020-02-06 10:12] VITALS: BMI 33.1
--- NOTE | 2020-02-06 10:22 | P.PN ---
Subjective Progress Note Date: 02/05/20 Principal diagnosis: Cardiogenic shock NTEMI Patient is a 79-year-old female with a known history of coronary artery disease status post stent placement x6 as per patient, history of DVT on Pradaxa, fibromyalgia, hypertension, hyperlipidemia, history of AK, osteoarthritis and rh eumatoid arthritis, [id number] type 2, diabetic peripheral neuropathy and chronic back pain and other multiple medical problems came to ER with the complaints of chest pain and worsening shortness of breath since yesterday. Patient states that she felt bandlike sensation across the upper chest and to the back. Symptoms are getting worse since yesterday afternoon.Patient has been having ongoing symptoms. Patient has been having symptoms for the past 2 days. No complaints of cough or sputum production. No fever no chills. No nausea vomiting or abdominal pain or diarrhea. Denied any recent illnesses. Patient called EMS today. Was found to be pale and diaphoretic. Patient was given aspirin and 2 nitroglycerin tablets enroute to ER which did drop her blood pressure [address] angiogram of the chest showed findings consistent with congestive heart failure with bilateral pleural effusions. CT of the abdomen pelvis was done showed no acute intra-abdominal adenopathy or abnormality. EKG showed sinus tachycardia. T wave Inversions in the lateral leads. Laboratory data showed WBC 9.3, hemoglobin 9.6 and platelets 286 D-dimer 3.17 Sodium 133, potassium 4.7, BUN 22 and creatinine 0.91, bicarb 15 Blood sugar was 291 on admission AST 98 and ALT 30 Troponin 7.36, 27.1 and 44.3 proBNP 16 500 Lipase 32 02/05/20 Patient is status post cardiac catheterization. During procedure patient came hypotensive and developed episode of V. tach. Patient was intubated. An intra- aortic balloon pump was inserted as the patient went into cardiogenic shock. Patient was started on amiodarone drip. Cardiac catheterization showed chronically occluded proximal and mid RCA with collaterals from the left system. There was subtotal occlusion of the mid LAD and distal segment of the stented area. There is mild disease in the circumflex. Stenting of the LAD was done. Patient is currently being monitored in the MICU. Chest x-ray showed CHF/pulmonary edema. Current laboratory data and medications reviewed. Laboratory data showed WBC 13.0, hemoglobin 9.9 and platelets 327 INR 3.5 Sodium 131, potassium 5.8, chloride 105, bicarbonate 39 BUN 31 creatinine 1.6 Blood sugar is 287 AST 581, ALT 319 and alk phos 96 Objective - Vital Signs Vital signs: Vital Signs Temp 97.7 F 02/05/20 16:00 Pulse 70 02/05/20 16:00 Resp 8 L 02/05/20 16:00 BP 95/64 02/05/20 08:00 Pulse Ox 97 02/05/20 16:00 Intake & Output 02/04/20 02/05/20 02/05/20 18:59 06:59 18:59 Intake Total 533.548 675.614 Output Total 258 214 Balance 275.548 461.614 Weight 77.111 kg 86.3 kg Intake: IV 330 579 Furosemide 100 mg In 110 10 Sodium Chloride 0.9% 90 ml @ 10 MG/HR 10 mls/hr IV .Q10H RUKHSANA Rx#: [id number] KVO 220 50 Intake, IV Titration 203.548 96.614 Amount Furosemide 100 mg In 83.333 Sodium Chloride 0.9% 90 ml @ 10 MG/HR 10 mls/hr IV .Q10H RUKHSANA Rx#: [id number] Heparin Sod,Pork in 0.45% 64 NaCl 25,000 unit In 0.45 % NaCl 1 250ml.bag @ 12 UNITS/KG/HR 9.253 mls/hr IV .Q24H RUKHSANA Rx#: [id number] Norepinephrine 32 mg In 0.303 Sodium Chloride 0.9% 218 ml @ 0.05 MCG/KG/MIN 2. 023 mls/hr IV .Q24H RUKHSANA Rx#:[id number] Propofol 1,000 mg In 56.215 96.311 Empty Bag 1 bag @ Titrate IV .Q0M RUKHSANA Rx#: [id number] Output: Urine 258 214 Other: Voiding Method Indwelling Catheter Indwelling Catheter ABP, PAP, CO, CI - Last Documented Arterial Blood Pressure 132/50 - Exam PHYSICAL EXAMINATION: Patient is Currently sedated and intubated... HEENT: Normocephalic. Neck is supple. Pupils reactive. Nostrils clear. Oral cavity is moist. Ears reveal no drainage. Neck reveals no JVD, carotid bruits, or thyromegaly. CHEST EXAMINATION: Trachea is central. Symmetrical expansion.Bibasilar diminished air entry and minimal crackles. . CARDIAC: Normal S1, S2 with no gallops. No murmurs ABDOMEN: Soft. Bowel sounds normal. No organomegaly. No abdominal bruits. Extremities: trace edema. No clubbing or cyanosis Neurologically Patient is currently sedated and intubated. No gross focal deficits noted Skin: No rash or skin lesions. Psychiatric: Could not be assessed at this time. Musculoskeletal: No joint swelling or deformity. - Labs CBC & Chem 7: 02/06/20 04:03 02/06/20 20:20 Labs: Abnormal Lab Results - Last 24 Hours (Table) 02/04/20 02/04/20 02/04/20 Range/Units 17:51 18:48 20:07 WBC (3.8-10.6) k/uL RBC (3.80-5.40) m/uL Hgb (11.4-16.0) gm/dL Hct (34.0-46.0) % Neutrophils # (1.3-7.7) k/uL PT (9.0-12.0) sec INR (<1.2) APTT (22.0-30.0) sec ABG pH (7.35-7.45) ABG pCO2 (35-45) mmHg ABG pO2 (83-108) mmHg ABG HCO3 (21-25) mmol/L ABG Total CO2 (19-24) mmol/L ABG O2 Saturation (94-97) % Sodium (137-145) mmol/L Potassium (3.5-5.1) mmol/L Carbon Dioxide (22-30) mmol/L BUN (7-17) mg/dL Creatinine (0.52-1.04) mg/dL Glucose (74-99) mg/dL POC Glucose (mg/dL) 251 H 243 H (75-99) mg/dL Calcium (8.4-10.2) mg/dL Phosphorus (2.5-4.5) mg/dL Magnesium (1.6-2.3) mg/dL AST (14-36) U/L ALT (4-34) U/L Troponin I 27.100 H* (0.000-0.034) ng/mL Total Protein (6.3-8.2) g/dL Albumin (3.5-5.0) g/dL 02/04/20 02/04/20 02/05/20 Range/Units 21:53 21:53 01:46 WBC (3.8-10.6) k/uL RBC (3.80-5.40) m/uL Hgb (11.4-16.0) gm/dL Hct (34.0-46.0) % Neutrophils # (1.3-7.7) k/uL PT (9.0-12.0) sec INR (<1.2) APTT 76.1 H (22.0-30.0) sec ABG pH 7.33 L (7.35-7.45) ABG pCO2 30 L (35-45) mmHg ABG pO2 281 H (83-108) mmHg ABG HCO3 16 L (21-25) mmol/L ABG Total CO2 17 L (19-24) mmol/L ABG O2 Saturation 99.5 H (94-97) % Sodium (137-145) mmol/L Potassium (3.5-5.1) mmol/L Carbon Dioxide (22-30) mmol/L BUN (7-17) mg/dL Creatinine (0.52-1.04) mg/dL Glucose (74-99) mg/dL POC Glucose (mg/dL) (75-99) mg/dL Calcium (8.4-10.2) mg/dL Phosphorus (2.5-4.5) mg/dL Magnesium (1.6-2.3) mg/dL AST (14-36) U/L ALT (4-34) U/L Troponin I 44.300 H* (0.000-0.034) ng/mL Total Protein (6.3-8.2) g/dL Albumin (3.5-5.0) g/dL 02/05/20 02/05/20 02/05/20 Range/Units 04:10 04:10 04:10 WBC 10.8 H (3.8-10.6) k/uL RBC 3.71 L (3.80-5.40) m/uL Hgb 10.3 L (11.4-16.0) gm/dL Hct 31.7 L (34.0-46.0) % Neutrophils # 8.6 H (1.3-7.7) k/uL PT (9.0-12.0) sec INR 1.2 H (<1.2) APTT 45.9 H (22.0-30.0) sec ABG pH (7.35-7.45) ABG pCO2 (35-45) mmHg ABG pO2 (83-108) mmHg ABG HCO3 (21-25) mmol/L ABG Total CO2 (19-24) mmol/L ABG O2 Saturation (94-97) % Sodium 132 L (137-145) mmol/L Potassium 5.5 H (3.5-5.1) mmol/L Carbon Dioxide 17 L (22-30) mmol/L BUN 30 H (7-17) mg/dL Creatinine 1.58 H (0.52-1.04) mg/dL Glucose 182 H (74-99) mg/dL POC Glucose (mg/dL) (75-99) mg/dL Calcium (8.4-10.2) mg/dL Phosphorus 5.7 H (2.5-4.5) mg/dL Magnesium 2.4 H (1.6-2.3) mg/dL AST 440 H (14-36) U/L ALT 194 H (4-34) U/L Troponin I (0.000-0.034) ng/mL Total Protein 5.8 L (6.3-8.2) g/dL Albumin (3.5-5.0) g/dL 02/05/20 02/05/20 02/05/20 Range/Units 05:27 05:40 10:07 WBC (3.8-10.6) k/uL RBC (3.80-5.40) m/uL Hgb (11.4-16.0) gm/dL Hct (34.0-46.0) % Neutrophils # (1.3-7.7) k/uL PT (9.0-12.0) sec INR (<1.2) APTT (22.0-30.0) sec ABG pH 7.31 L (7.35-7.45) ABG pCO2 29 L 27 L (35-45) mmHg ABG pO2 127 H 189 H (83-108) mmHg ABG HCO3 17 L 13 L (21-25) mmol/L ABG Total CO2 18 L (19-24) mmol/L ABG O2 Saturation 98.7 H 99.2 H (94-97) % Sodium (137-145) mmol/L Potassium (3.5-5.1) mmol/L Carbon Dioxide (22-30) mmol/L BUN (7-17) mg/dL Creatinine (0.52-1.04) mg/dL Glucose (74-99) mg/dL POC Glucose (mg/dL) 186 H (75-99) mg/dL Calcium (8.4-10.2) mg/dL Phosphorus (2.5-4.5) mg/dL Magnesium (1.6-2.3) mg/dL AST (14-36) U/L ALT (4-34) U/L Troponin I (0.000-0.034) ng/mL Total Protein (6.3-8.2) g/dL Albumin (3.5-5.0) g/dL 02/05/20 02/05/20 02/05/20 Range/Units 11:22 11:24 11:25 WBC 13.0 H (3.8-10.6) k/uL RBC 3.52 L (3.80-5.40) m/uL Hgb 9.9 L (11.4-16.0) gm/dL Hct 30.9 L (34.0-46.0) % Neutrophils # 10.2 H (1.3-7.7) k/uL PT (9.0-12.0) sec INR (<1.2) APTT (22.0-30.0) sec ABG pH (7.35-7.45) ABG pCO2 19 L* (35-45) mmHg ABG pO2 (83-108) mmHg ABG HCO3 12 L (21-25) mmol/L ABG Total CO2 12 L (19-24) mmol/L ABG O2 Saturation (94-97) % Sodium (137-145) mmol/L Potassium (3.5-5.1) mmol/L Carbon Dioxide (22-30) mmol/L BUN (7-17) mg/dL Creatinine (0.52-1.04) mg/dL Glucose (74-99) mg/dL POC Glucose (mg/dL) 287 H (75-99) mg/dL Calcium (8.4-10.2) mg/dL Phosphorus (2.5-4.5) mg/dL Magnesium (1.6-2.3) mg/dL AST (14-36) U/L ALT (4-34) U/L Troponin I (0.000-0.034) ng/mL Total Protein (6.3-8.2) g/dL Albumin (3.5-5.0) g/dL 02/05/20 02/05/20 02/05/20 Range/Units 11:25 11:25 13:16 WBC (3.8-10.6) k/uL RBC (3.80-5.40) m/uL Hgb (11.4-16.0) gm/dL Hct (34.0-46.0) % Neutrophils # (1.3-7.7) k/uL PT 34.4 H (9.0-12.0) sec INR 3.5 H (<1.2) APTT 68.0 H (22.0-30.0) sec ABG pH (7.35-7.45) ABG pCO2 (35-45) mmHg ABG pO2 (83-108) mmHg ABG HCO3 (21-25) mmol/L ABG Total CO2 (19-24) mmol/L ABG O2 Saturation (94-97) % Sodium 131 L (137-145) mmol/L Potassium 5.8 H (3.5-5.1) mmol/L Carbon Dioxide 13 L (22-30) mmol/L BUN 31 H (7-17) mg/dL Creatinine 1.68 H (0.52-1.04) mg/dL Glucose 241 H (74-99) mg/dL POC Glucose (mg/dL) 253 H (75-99) mg/dL Calcium 7.9 L (8.4-10.2) mg/dL Phosphorus (2.5-4.5) mg/dL Magnesium (1.6-2.3) mg/dL AST 581 H (14-36) U/L ALT 319 H (4-34) U/L Troponin I (0.000-0.034) ng/mL Total Protein 5.0 L (6.3-8.2) g/dL Albumin 2.8 L (3.5-5.0) g/dL Microbiology - Last 24 Hours (Table) 02/05/20 01:34 Gram Stain - Preliminary Sputum Sputum Culture - Preliminary Assessment and Plan Assessment: Acute non-ST elevated AK with elevated troponin level. Status post cardiac catheterization. Cardiogenic shock. With RCA occlusion and nondominant circumflex LAD was stented With RCA occlusion and nondominant circumflex LAD was stented. 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 Fibromyalgia Hypertension Hyperlipidemia History of AK Rheumatoid arthritis and osteoarthritis Diabetic peripheral neuropathy Chronic back pain Degenerative disc disease Hiatal hernia IBS History of diverticulosis History of skin cancer removal Depression Obesity with BMI 30.1 Plan: Patient is being continued on pressor support and intra-aortic balloon pump. Status post stent placement. Continued on mechanical ventilator. Cardiology and pulmonary is following. Patient is also on amiodarone drip. Prognosis is guarded. Time with Patient: Greater than 30
--- NOTE | 2020-02-06 10:36 | P.NPCON ---
History of Present Illness - Reason for Consult acute renal failure - History of Present Illness Reason for consultation: Acute kidney injury History of present illness: Patient is a 79-year-old female seen in renal consultation for acute kidney injury. Patient presented to the emergency room on 02/04/2020 with chest pain or shortness of breath going on for 2 days. Patient has history of coronary art fox disease with several stents in place. She underwent chest CTA on February 03 which was consistent with congestive heart failure. Bilateral pleural effusions were noted. She also underwent CAT scan of the abdomen and pelvis with IV contrast which revealed no hydronephrosis. No acute intra-abdominal abnormality was noted. Echocardiogram revealed ejection fraction of less than 20% and moderate to severe tricuspid regurgitation. She underwent cardiac catheterization on February 04 with stent placement to the LAD. She also has an intra-aortic balloon pump at this time for cardiogenic shock. Patient is on 32 mics of Levophed. She is noted to be severely acidotic with a bicarbonate level of 9 this morning. Potassium level V.7. She did receive 3 and sodium bicarbonate IV push and was started on D5 with 3 A of bicarbonate running at 50 mL an hour. He shouldn't is oliguric. She is intubated and sedated. is present at bedside. She is also on amiodarone and heparin drip. Vital signs: Blood pressure stable on Levophed. Afebrile. General: The patient appeared well nourished and normally developed. HEENT: Head exam is unremarkable. Intubated. LUNGS: Scattered rhonchi. HEART: Irregular rhythm. ABDOMEN: Soft, no distention noted. EXTREMITITES: No edema. Past Medical History Past Medical History: Coronary Artery Disease (CAD), Chest Pain / Angina, CVA/TIA, Diabetes Mellitus, Deep Vein Thrombosis (DVT), Eye Disorder, Fibromyalgia, Hyperlipidemia, Hypertension, Myocardial Infarction (CO), Osteoarthritis (OA), Rheumatoid Arthritis (RA) Additional Past Medical History / Comment(s): -Coronary artery disease with prior stent-multiple. -Diabetes mellitus type 2. -Chronic fibromyalgia. - Hyperlipidemia. -Essential hypertension. -Peripheral neuropathy from diabetes. -Chronic hiatal hernia. -Irritable bowel syndrome. -Chronic diverticulosis. -Obesity BMI 32.1. -Left renal calculi-asymptomatic. -Recurrent DVTs. -Large hiatal hernia. - skin cancer with removal, shingelle "break outs," skin itching (whole body). - chronic back pain. -CHF , EF 45% and mild moderate AR and MR. - Dementia. -RLS Last Myocardial Infarction Date:: 2017 History of Any Multi-Drug Resistant Organisms: None Reported Past Surgical History: Appendectomy, Cholecystectomy, Heart Catheterization, Heart Catheterization With Stent, Hernia Repair, Hysterectomy, Tonsillectomy Additional Past Surgical History / Comment(s): PCI with multiple stents(6-7), ventral hernia repair, colonoscopy, bilateral cataract removals, skin cancer removals. Past Anesthesia/Blood Transfusion Reactions: No Reported Reaction Date of Last Stent Placement:: 2017 Past Psychological History: Depression Past Alcohol Use History: None Reported Past Drug Use History: None Reported - Past Family History Father Additional Family Medical History / Comment(s): pt stated had heart issues, but not sure what Mother Additional Family Medical History / Comment(s): leaking valve Medications and Allergies Home Medications Medication Instructions Recorded Confirmed Type Cevimeline [Evoxac] 30 mg PO BID 04/29/14 02/04/20 History valACYclovir [Valtrex] 500 mg PO DAILY 12/01/17 02/04/20 History Nitroglycerin Sl Tabs [Nitrostat] 0.4 mg SUBLINGUAL Q5M PRN tab 01/11/18 02/04/20 Rx Insulin Glargine,Hum.rec.anlog 10 unit SQ HS 07/18/18 02/04/20 History [Lantus Solostar] rOPINIRole HCL [Requip] 0.25 mg PO HS 07/18/18 02/04/20 History Loratadine [Claritin] 10 mg PO DAILY PRN 02/01/19 02/04/20 History Memantine [Namenda] 10 mg PO BID 03/25/19 02/04/20 History Zolpidem [Ambien] 5 mg PO HS PRN tab 03/27/19 02/04/20 Rx Dabigatran [Pradaxa] 150 mg PO BID #60 capsule 05/13/19 02/04/20 Rx Atorvastatin [Lipitor] 40 mg PO HS 11/02/19 02/04/20 History Cromolyn 4% Eye Drops 1 drop BOTH EYES DAILY 11/02/19 02/04/20 History DULoxetine HCL [Cymbalta] 60 mg PO DAILY 11/02/19 02/04/20 History Fluticasone Nasal [place] [Flonase 2 spr EA NOSTRIL DAILY PRN 11/02/19 02/04/20 History Nasal [place]] Furosemide [Lasix] 20 mg PO DAILY 11/02/19 02/04/20 History Gabapentin [Neurontin] 300 mg PO TID 11/02/19 02/04/20 History Lisinopril [Zestril] 2.5 mg PO DAILY 11/02/19 02/04/20 History Metoprolol Succinate [Toprol XL] 25 mg PO DAILY 11/02/19 02/04/20 History Omeprazole [PriLOSEC] 40 mg PO DAILY 11/02/19 02/04/20 History Primidone [Mysoline] 25 mg PO HS 11/02/19 02/04/20 History Sennosides [Senokot] 8.6 mg PO DAILY PRN 11/02/19 02/04/20 History busPIRone HCL 10 mg PO BID 11/02/19 02/04/20 History Aspirin 81 mg PO DAILY #30 chewable 11/04/19 02/04/20 Rx Insulin Lispro [humaLOG Kwikpen] 5 unit SQ AC-TID 12/14/19 02/04/20 History Insulin Lispro [humaLOG Kwikpen] See Protocol SQ AC-TID 12/14/19 02/04/20 History Terazosin [Hytrin] 1 mg PO HS 12/14/19 02/04/20 History HYDROcodone/APAP 5-325MG [[place] 1 tab PO BID 02/04/20 02/04/20 History 5-325] Ibuprofen [Motrin] 800 mg PO Q8H PRN 02/04/20 02/04/20 History fentaNYL 12MCG/HR PATCH [Duragesic 1 patch TRANSDERM Q72H 02/04/20 02/04/20 History 12MCG/HR] hydrOXYzine HCL [Atarax] 25 mg PO TID 02/04/20 02/04/20 History Allergies Allergy/AdvReac Type Severity Reaction Status Date / Time etanercept [From Enbrel] Allergy Rash/Hives Verified 02/04/20 15:14 hydroxyzine [From Atarax] Allergy Unknown Verified 02/04/20 15:14 latex Allergy Itching Verified 02/04/20 15:14 Sulfa (Sulfonamide Allergy Rash/Hives Verified 02/04/20 15:14 Antibiotics) tape Allergy Rash/Hives Uncoded 02/04/20 14:03 Physical Exam Vitals: Vital Signs Temp Pulse Resp BP Pulse Ox 02/06/20 10:00 70 20 100 02/06/20 09:45 64 20 120/54 100 02/06/20 09:00 68 20 97 02/06/20 08:00 99.2 F 74 19 68 L 02/06/20 07:00 78 26 H 02/06/20 06:00 75 24 02/06/20 05:00 68 24 02/06/20 04:00 100.2 F H 67 25 H 96 02/06/20 03:35 93 L 02/06/20 03:00 64 24 93 L 02/06/20 02:00 62 24 93 L 02/06/20 01:00 60 24 93 L 02/06/20 00:00 99.3 F 56 L 24 93 L 02/05/20 23:00 61 22 93 L 02/05/20 22:00 66 23 93 L 02/05/20 21:00 62 30 H 95 02/05/20 20:00 97.9 F 61 30 H 97 02/05/20 19:00 60 26 H 97 02/05/20 18:00 66 24 97 02/05/20 17:00 89 27 H 97 02/05/20 16:00 97.7 F 70 8 L 97 02/05/20 15:00 70 22 98 02/05/20 14:00 71 22 98 02/05/20 13:00 97 30 H 98 02/05/20 12:00 66 21 98 02/05/20 11:00 69 20 02/05/20 10:59 22 Intake and Output 02/05/20 02/06/20 02/06/20 22:59 06:59 14:59 Intake Total 574.734 4030.544 617.799 Output Total 89 162 95 Balance 159.756 4754.544 522.799 Intake: IV 186.96 458.49 571 0.9 NaCl- 60 120 40 Amiodarone 0.5mg/hr 120 Amiodarone 1 mg/hr 233.19 Amiodarone 360 mg In 99.96 33.3 Dextrose 5% in Water 200 ml @ 0.5 MG/MIN 16.667 mls/hr IV .Q12H RUKHSANA Rx#: [id number] D50 Bolus 50 IABP Pressure bag 9 24 12 Pressure bags (AL & CVP) 18 48 24 Sodium bicarbonate IVP ( 150 bolus) Sodium bicarbonate drip ( 175 150mg in d5w) Intake, IV Titration 249.646 708.054 46.799 Amount Amiodarone 360 mg In 428.887 Dextrose 5% in Water 200 ml @ 0.5 MG/MIN 16.667 mls/hr IV .Q12H RUKHSANA Rx#: [id number] Heparin Sod,Pork in 0.45% 70.077 52.472 NaCl 25,000 unit In 0.45 % NaCl 1 250ml.bag @ 11.6 UNITS/KG/HR 10.011 mls/ hr IV .Q24H RUKHSANA Rx#: [id number] Norepinephrine 32 mg In 131.970 46.799 Sodium Chloride 0.9% 218 ml @ 0.05 MCG/KG/MIN 2. 023 mls/hr IV .Q24H RUKHSANA Rx#:[id number] Propofol 1,000 mg In 179.569 94.725 Empty Bag 1 bag @ Titrate IV .Q0M RUKHSANA Rx#: [id number] Oral 30 15 Output: Gastric Drainage 110 Urine 89 52 95 Other: Voiding Method Indwelling Catheter Indwelling Catheter Indwelling Catheter Weight 84.8 kg 84.8 kg ABP, PAP, CO, CI - Last 8 Hours Arterial Blood Pressure 103/54 Arterial Blood Pressure 104/49 Arterial Blood Pressure 107/55 Arterial Blood Pressure 114/52 Arterial Blood Pressure 115/57 Arterial Blood Pressure 91/48 Arterial Blood Pressure 95/51 Arterial Blood Pressure 106/53 Arterial Blood Pressure 101/48 Results - Lab Results Most recent lab results ABG pH 7.25 (7.35-7.45) L 02/06/20 05:23 ABG pCO2 18 mmHg (35-45) L* 02/06/20 05:23 ABG pO2 79 mmHg (83-108) L 02/06/20 05:23 ABG HCO3 8 mmol/L (21-25) L* 02/06/20 05:23 ABG O2 Saturation 93.1 % (94-97) L 02/06/20 05:23 Calcium 7.9 mg/dL (8.4-10.2) L 02/06/20 04:03 Phosphorus 5.7 mg/dL (2.5-4.5) H 02/05/20 04:10 Magnesium 2.1 mg/dL (1.6-2.3) 02/05/20 11:25 02/06/20 04:03 02/06/20 04:03 Assessment and Plan Plan: Assessment: 1. Oliguric acute kidney injury secondary to ATN secondary to cardiogenic shock as well as contrast-induced acute kidney injury. Creatinine 2.51 today. Baseline creatinine 1. No hydronephrosis noted on CAT scan. 2. Cardiogenic shock maintained on Levophed. Also has an intra-aortic balloon pump in place. Maintained on amiodarone and heparin drip. 3. Hyponatremia secondary to acute kidney injury. 4. Metabolic acidosis secondary to acute kidney injury. 5. Hyperkalemia secondary to acute kidney injury and metabolic acidosis. 6. Shock liver. 7. Acute on chronic systolic CHF ejection fraction of less than 20%. Plan: Patient received 3 A of bicarb IV push and is maintained on bicarb drip at this time. Repeat electrolytes at 1 PM. Discussed with the that patient is currently hemodynamically unstable to tolerate renal replacement therapy. However if potassium continues to rise, he is willing to proceed with renal replacement therapy. Prognosis guarded. Thank you for the consultation. I will continue to follow the patient with you during her hospital stay.
--- NOTE | 2020-02-06 11:40 | P.PN ---
Subjective Progress Note Date: 02/06/20 This is a 79-year-old female patient was multiple medical positive comorbidities including history of coronary artery disease and the patient has undergone multiple coronary stenting of the LAD and RCA in the past last cardiac catheterization was in 2018. The patient came into the emergency department yesterday with progressive worsening shortness of breath. The patient was found to be CHF. The patient also was found to have an acute non-ST segment myocardial infarction. Troponins were quite elevated. The patient apparently had been having worsening shortness of breath for the past 3 days. Subsequently, shortness of breath became constant and she also expressed some chest pain. Her EKG showed T-wave inversions in the lateral precordial leads. The patient had normal troponin and a troponin peaked at 44 and the patient had a elevated proBNP level of 16,500. The patient underwent a CT angiogram that showed no evidence of any pulmonary embolism. There is some market groundglass bilateral opacities in bilateral pleural effusion consistent with CHF. The phan ent also had a CAT scan of the abdomen and pelvis that showed again bilateral pleural effusion without any similar significant abnormalities. The patient was admitted to the ICU and the patient was placed on a combination of aspirin and IV heparin. The patient was also started on Lasix drip at 10 mg an hour. Urine output this morning was quite low and the patient was having diminished pulses in all 4 extremities and extremities were cold and clammy. An echocardiogram at the bedside and the patient was found to have an ejection fraction of less than 20%. There was several segmental wall motion abnormalities including the midanterior LV wall, lateral wall, a few wall, anteroseptal wall, anteroseptal wall, apical and there was evidence of severe mitral regurgitation and moderate tricuspid regurgitation. Overnight, the patient became progressively more short of breath and the patient had to be intubated and placed on a mechanical ventilator. This morning, the patient was sedated with propofol. She was assist-control mode of ventilation with a rate of 20 with tidal volume of 400 a nd FiO2 of 40% with a PEEP of 5. Blood gases showed a pH of 7.37 with a pCO2 of 29 and pO2 127. She was not requiring any pressors. Arterial line was in place. Case discussed with cardiology. The patient was taken to the can labeler and the patient underwent a cardiac catheterization. During the procedure, the patient became hypotensive and the patient developed episodes of V. tach. An intra-aortic balloon pump was inserted as the patient went into cardiogenic shock. Also, the patient was started on amiodarone drip at 1 mg per minute. The patient completed the procedure and she was found to have chronic chronically occluded proximal and mid RCA with collaterals from the left system. There was subtotal occlusion of the mid LAD and distal segment of the stented area. There was mild disease in the circumflex. And depressed and stenting of the LAD was done. Following this, the patient was brought into the intensive care unit I had to see the patient back following her cardiac catheterization and stenting. The patient was an obvious cardiac shock on intra-aortic balloon pump. I establish a triple lumen catheter in the patient is currently on norepinephrine infusion at 0.15 g per KG per minute. The patient is also on intra-aortic balloon pump with one-to-one augmentation and a augmented blood pressure of 113/50. I was able to modify tidal volume to 500 and The PEEP at 5 with an FiO2 of 40% at the rate of 20. The patient was then amiodarone drip and a cardiac rhythm was sinus. Troponin is running at 25 mg per KG per minute. Extremities are still cold and clammy/in lower oximetry is bilaterally. Chest x-ray post-line insertion showed CHF/pulmonary edema. There was adequate positioning of the orotracheal tube and the triple-lumen catheter. Blood gases and rest of the blood work is still pending for now. On 02/06/2020, the patient remains intubated on mechanical ventilator. The patient remains in shock and this essentially cardiogenic shock. The patient has an intra-aortic balloon pump which is still active with one-to-one augmentation. The augmented blood pressure is around 1:30. Unfortunately, the patient has had no major improvement in the urine output and the patient has produced only 70 mL of urine output over the past 8-10 hours. The patient continues to be shock and she has signs of multisystem organ failure including respiratory failure, kidney injury and shock liver. This morning, the patient remains on propofol running at 30 g per KG per minute. The patient is on norepinephrine infusion running at 0.35 mg per KG per minute. The patient is also on amiodarone drip at 0.5 mg an hour. She is still on IV heparin. The patient remains on a mechanical ventilator. This morning she did assist-control mode at the rate of 20 with tidal volume of 450 and FiO2 of 40% with a PEEP of 5. The blood gases showed acidosis with a pH of 7.25 and a pCO2 of 18 and pO2 of 79. While on the mechanical ventilator, the patient double stacking in an assisted ventilator changes were done. Chest x-ray showing early megaly and bilateral pleural effusions consistent with CHF. ET tube is in a good location. The patient is a left IJ triple-lumen catheter in place. The blood work showed significant acidosis which is of anion gap metabolic acidosis. The patient was started on bicarb infusion as there was concern that the patient's potassium level was gradually improving and was given a course cardiac arrhythmias. Potassium level currently is at 5.7. Serum bicarb is at 9. Anion gap is at 17. The patient was given D50 along with insulin and follow potassium levels are still pending for now. INR is at 2.3 with a PT of 22.2 and a PTT of 63.2. Liver functions is a significant elevated consistent with shock liver. The extremities remain cold and clammy with markedly diminished pulses in lower extremities bilaterally. Objective - Vital Signs Vital signs: Vital Signs Temp 99.2 F 02/06/20 08:00 Pulse 69 02/06/20 11:15 Resp 20 02/06/20 11:15 BP 120/54 02/06/20 10:15 Pulse Ox 98 02/06/20 11:15 Intake & Output 02/05/20 02/06/20 02/06/20 18:59 06:59 18:59 Intake Total 672.540 3686.638 809.315 Output Total 254 199 105 Balance 881.839 3701.638 704.315 Weight 84.8 kg 84.8 kg Intake: IV 579 645.45 670 0.9 NaCl- 50 180 50 Amiodarone 0.5mg/hr 150 Amiodarone 1 mg/hr 233.19 Amiodarone 360 mg In 133.26 Dextrose 5% in Water 200 ml @ 0.5 MG/MIN 16.667 mls/hr IV .Q12H RUKHSANA Rx#: [id number] D50 Bolus 50 Furosemide 100 mg In 10 Sodium Chloride 0.9% 90 ml @ 10 MG/HR 10 mls/hr IV .Q10H RUKHSANA Rx#: [id number] IABP Pressure bag 33 15 Pressure bags (AL & CVP) 66 30 Sodium bicarbonate IVP ( 150 bolus) Sodium bicarbonate drip ( 225 150mg in d5w) Intake, IV Titration 178.557 796.188 139.315 Amount Amiodarone 360 mg In 428.887 Dextrose 5% in Water 200 ml @ 0.5 MG/MIN 16.667 mls/hr IV .Q12H RUKHSANA Rx#: [id number] Heparin Sod,Pork in 0.45% 70.077 52.472 NaCl 25,000 unit In 0.45 % NaCl 1 250ml.bag @ 11.6 UNITS/KG/HR 10.011 mls/ hr IV .Q24H RUKHSANA Rx#: [id number] Norepinephrine 32 mg In 0.303 131.970 46.799 Sodium Chloride 0.9% 218 ml @ 0.05 MCG/KG/MIN 2. 023 mls/hr IV .Q24H RUKHSANA Rx#:[id number] Propofol 1,000 mg In 108.177 182.859 92.516 Empty Bag 1 bag @ Titrate IV .Q0M RUKHSANA Rx#: [id number] Oral 45 Output: Gastric Drainage 110 Urine 254 89 105 Other: Voiding Method Indwelling Catheter Indwelling Catheter Indwelling Catheter ABP, PAP, CO, CI - Last Documented Arterial Blood Pressure 115/42 - Exam Gen. appearance the patient is intubated, comfortable likely distress sedated with propofol. Orogastric and orotracheal tube are both in place. Head exam was generally normal. There was no scleral icterus or corneal arcus. Mucous membranes were moist. Neck was supple and with jugular venous distension, thyromegaly, or carotid bruits. Carotids were easily palpable bilaterally. There was no adenopathy. Patient has bilateral JVDs. No goiter or neck masses. Lungs sounds are diminished bilaterally. The breath sounds are equal and symmetrical. No wheezes. No rhonchi. Heart sounds are distant, the patient has an intra-aortic balloon pump with one-to-one augmentation. No significant murmurs could be appreciated. Abdominal exam revealed normal bowel sounds. The abdomen was soft, non-tender, and without masses, organomegaly, or appreciable enlargement of the abdominal aorta. Extremities are cold and clammy and there are diminished pulses no friction especially lower extremities bilaterally. No cyanosis. No clubbing. Examination of the skin revealed no evidence of significant rashes, suspicious appearing nevi or other concerning lesions. Neurologically the patient is sedated and calm and comfortable currently on propofol. The patient has a left IJ triple-lumen catheter which is also in place. The patient has a intra-aortic balloon pump in the femoral artery. - Labs CBC & Chem 7: 02/06/20 04:03 02/06/20 04:03 Labs: Abnormal Lab Results - Last 24 Hours (Table) 02/05/20 02/05/20 02/05/20 Range/Units 11:25 11:25 11:25 WBC 13.0 H (3.8-10.6) k/uL RBC 3.52 L (3.80-5.40) m/uL Hgb 9.9 L (11.4-16.0) gm/dL Hct 30.9 L (34.0-46.0) % Neutrophils # 10.2 H (1.3-7.7) k/uL Monocytes # (0-1.0) k/uL PT 34.4 H (9.0-12.0) sec INR 3.5 H (<1.2) APTT 68.0 H (22.0-30.0) sec ABG pH (7.35-7.45) ABG pCO2 (35-45) mmHg ABG pO2 (83-108) mmHg ABG HCO3 (21-25) mmol/L ABG Total CO2 (19-24) mmol/L ABG O2 Saturation (94-97) % Sodium 131 L (137-145) mmol/L Potassium 5.8 H (3.5-5.1) mmol/L Carbon Dioxide 13 L (22-30) mmol/L BUN 31 H (7-17) mg/dL Creatinine 1.68 H (0.52-1.04) mg/dL Glucose 241 H (74-99) mg/dL POC Glucose (mg/dL) (75-99) mg/dL Calcium 7.9 L (8.4-10.2) mg/dL Total Bilirubin (0.2-1.3) mg/dL AST 581 H (14-36) U/L ALT 319 H (4-34) U/L Alkaline Phosphatase (38-126) U/L Total Protein 5.0 L (6.3-8.2) g/dL Albumin 2.8 L (3.5-5.0) g/dL 02/05/20 02/05/20 02/05/20 Range/Units 13:16 17:56 18:00 WBC (3.8-10.6) k/uL RBC (3.80-5.40) m/uL Hgb (11.4-16.0) gm/dL Hct (34.0-46.0) % Neutrophils # (1.3-7.7) k/uL Monocytes # (0-1.0) k/uL PT (9.0-12.0) sec INR (<1.2) APTT 76.6 H (22.0-30.0) sec ABG pH (7.35-7.45) ABG pCO2 (35-45) mmHg ABG pO2 (83-108) mmHg ABG HCO3 (21-25) mmol/L ABG Total CO2 (19-24) mmol/L ABG O2 Saturation (94-97) % Sodium (137-145) mmol/L Potassium (3.5-5.1) mmol/L Carbon Dioxide (22-30) mmol/L BUN (7-17) mg/dL Creatinine (0.52-1.04) mg/dL Glucose (74-99) mg/dL POC Glucose (mg/dL) 253 H 221 H (75-99) mg/dL Calcium (8.4-10.2) mg/dL Total Bilirubin (0.2-1.3) mg/dL AST (14-36) U/L ALT (4-34) U/L Alkaline Phosphatase (38-126) U/L Total Protein (6.3-8.2) g/dL Albumin (3.5-5.0) g/dL 02/05/20 02/06/20 02/06/20 Range/Units 23:45 00:29 00:29 WBC (3.8-10.6) k/uL RBC (3.80-5.40) m/uL Hgb (11.4-16.0) gm/dL Hct (34.0-46.0) % Neutrophils # (1.3-7.7) k/uL Monocytes # (0-1.0) k/uL PT (9.0-12.0) sec INR (<1.2) APTT 68.9 H (22.0-30.0) sec ABG pH (7.35-7.45) ABG pCO2 (35-45) mmHg ABG pO2 (83-108) mmHg ABG HCO3 (21-25) mmol/L ABG Total CO2 (19-24) mmol/L ABG O2 Saturation (94-97) % Sodium 131 L (137-145) mmol/L Potassium 5.5 H (3.5-5.1) mmol/L Carbon Dioxide 9 L* (22-30) mmol/L BUN 40 H (7-17) mg/dL Creatinine 2.29 H (0.52-1.04) mg/dL Glucose 135 H (74-99) mg/dL POC Glucose (mg/dL) 161 H (75-99) mg/dL Calcium 8.0 L (8.4-10.2) mg/dL Total Bilirubin (0.2-1.3) mg/dL AST (14-36) U/L ALT (4-34) U/L Alkaline Phosphatase (38-126) U/L Total Protein (6.3-8.2) g/dL Albumin (3.5-5.0) g/dL 02/06/20 02/06/20 02/06/20 Range/Units 04:03 04:03 05:23 WBC 22.1 H (3.8-10.6) k/uL RBC (3.80-5.40) m/uL Hgb 10.3 L (11.4-16.0) gm/dL Hct 32.7 L (34.0-46.0) % Neutrophils # 17.0 H (1.3-7.7) k/uL Monocytes # 2.2 H (0-1.0) k/uL PT (9.0-12.0) sec INR (<1.2) APTT (22.0-30.0) sec ABG pH 7.25 L (7.35-7.45) ABG pCO2 18 L* (35-45) mmHg ABG pO2 79 L (83-108) mmHg ABG HCO3 8 L* (21-25) mmol/L ABG Total CO2 8 L (19-24) mmol/L ABG O2 Saturation 93.1 L (94-97) % Sodium 129 L (137-145) mmol/L Potassium 5.7 H (3.5-5.1) mmol/L Carbon Dioxide 9 L* (22-30) mmol/L BUN 41 H (7-17) mg/dL Creatinine 2.51 H (0.52-1.04) mg/dL Glucose 120 H (74-99) mg/dL POC Glucose (mg/dL) (75-99) mg/dL Calcium 7.9 L (8.4-10.2) mg/dL Total Bilirubin 1.5 H (0.2-1.3) mg/dL AST 2957 H (14-36) U/L ALT 2030 H (4-34) U/L Alkaline Phosphatase 130 H (38-126) U/L Total Protein 5.4 L (6.3-8.2) g/dL Albumin 3.1 L (3.5-5.0) g/dL 02/06/20 02/06/20 Range/Units 05:59 06:00 WBC (3.8-10.6) k/uL RBC (3.80-5.40) m/uL Hgb (11.4-16.0) gm/dL Hct (34.0-46.0) % Neutrophils # (1.3-7.7) k/uL Monocytes # (0-1.0) k/uL PT 22.2 H (9.0-12.0) sec INR 2.3 H (<1.2) APTT 63.2 H (22.0-30.0) sec ABG pH (7.35-7.45) ABG pCO2 (35-45) mmHg ABG pO2 (83-108) mmHg ABG HCO3 (21-25) mmol/L ABG Total CO2 (19-24) mmol/L ABG O2 Saturation (94-97) % Sodium (137-145) mmol/L Potassium (3.5-5.1) mmol/L Carbon Dioxide (22-30) mmol/L BUN (7-17) mg/dL Creatinine (0.52-1.04) mg/dL Glucose (74-99) mg/dL POC Glucose (mg/dL) 134 H (75-99) mg/dL Calcium (8.4-10.2) mg/dL Total Bilirubin (0.2-1.3) mg/dL AST (14-36) U/L ALT (4-34) U/L Alkaline Phosphatase (38-126) U/L Total Protein (6.3-8.2) g/dL Albumin (3.5-5.0) g/dL Microbiology - Last 24 Hours (Table) 02/05/20 01:34 Gram Stain - Preliminary Sputum Sputum Culture - Preliminary Assessment and Plan Plan: 1 acute non-STEMI post cardiac catheterization and post stenting of a subtotally occluded mid LAD and distal segment of the stented area. The patient was also found to have chronically occluded proximal and mid RCA with collateral system from the left. 2 cardiogenic shock secondary to above. Patient ejection fraction is less then 20% and the patient has segmental wall motion abnormalities based on echocardiogram. There is also evidence of severe mitral regurgitation. The patient currently has an intra-aortic balloon pump with one-to-one augmentation. The patient is quite hypotensive and the blood pressures augmented for now and the patient is also norepinephrine infusion at a higher dose of 0.35 g per KG per minute. The patient has no urine output. The patient has developed multisystem organ failure. The patient has acute kidney injury/failure. The patient has also developed shock liver. The patient has not shown signs of improvement over the past 24 hours. 3 shock liver secondary to hypotension and multisystem organ failure 4 acute kidney injury secondary to above. There is obvious cardiorenal factors in addition to that the patient had taken significant amount of contrast due to CT angiograms and cardiac catheterizations. The patient's renal function is gradually gotten worse and the patient is not producing any urine output at this point in time. The patient has developed significant metabolic acidosis. The potassium is also on the rise and the patient is currently placed on a bicarb infusion. 5 V. tach during cardiac catheterization and the patient is currently on amiodarone drip. The current cardiac rhythm is sinus. 6 acute hypoxic respiratory failure secondary to above and the patient is currently intubated on a mechanical ventilator , this is secondary to pulmonary edema and cardiogenic shock. The chest exit from today showing bilateral pleural effusions and pulmonary edema. 7 anion gap metabolic acidosis 8 known history of coronary artery disease with multiple coronary stenting in the past 9 diabetes mellitus type 2 10 chronic fibromyalgia 11 hyperlipidemia 12 history of hypertension 13 history of a large chronic hiatal hernia 14 history of colonic diverticulosis and irritable bowel disease 15 history of left renal calculi, symptomatic 16 history of recurrent DVTs and the patient has not been taking Pradaxa on an outpatient basis 17 history of skin cancer 18 history of chronic back pain 19 history of dementia on Namenda 20 history of restless 6 syndrome and tremors Plan Condition is critical, prognosis poor based on presence of cardiogenic shock and multisystem organ failure. Her condition carries a very high mortality. Necessity ventilator changes were done and the patient was quite asynchronous with a mechanical ventilator. I placed the patient on obesity plus mode at a ti arlette volume of 550 with respiratory time of 0.12 ms. This improved her synchrony with the mechanical ventilator. The rest of the settings will be kept unchanged. Keep the intra-aortic balloon pump for 1 additional cardiac output and the blood pressure Continue with pressors IV Lasix will be tried at the higher dose per nephrology. Patient was given D50 and insulin and the patient was also given bicarb infusion. Monitor renal function repeated the blood work and electrolytes Continue aspirin and Brilinta Continue amiodarone maintenance Echocardiogram was noted We'll continue to follow make further recommendations based on her progress. Condition is critical. This evaluation was done and more than 30 hour. Time with Patient: Greater than 30
[2020-02-06 12:52] LABS: Glucose,Whole Blood 309 mg/dL (75-99)
[2020-02-06] MEDS: HEPARIN SOD,PORK IN 0.45% NACL 25,000 UNIT in 0.45% NACL 1 250ML.BAG IV SCH (12:55)
[2020-02-06 14:08] LABS: Albumin 2.8 g/dL (3.5-5.0); Calcium 7.1 mg/dL (8.4-10.2); Potassium 4.5 mmol/L (3.5-5.1); Total Bilirubin 1.6 mg/dL (0.2-1.3); Total Protein 4.9 g/dL (6.3-8.2)
[2020-02-06 17:19] LABS: ABG Base Excess -8.8 mmol/L; ABG HCO3 14 mmol/L (21-25); ABG PH 7.51 (7.35-7.45); ABG PO2 106 mmHg (83-108); ABG TCO2 15 mmol/L (19-24); Allen Test Performed? Yes
[2020-02-06 17:26] LABS: ABG PCO2 18 mmHg (35-45)
[2020-02-06 18:28] LABS: Glucose,Whole Blood 287 mg/dL (75-99)
[2020-02-06 18:28] LABS: Glucose,Whole Blood 339 mg/dL (75-99)
[2020-02-06 20:25] LABS: ABG HCO3 17 mmol/L (21-25); ABG Oxygen Saturation 97.2 % (94-97); ABG PCO2 27 mmHg (35-45); ABG PH 7.42 (7.35-7.45); ABG PO2 101 mmHg (83-108); ABG TCO2 18 mmol/L (19-24); Allen Test Performed? Yes
[2020-02-06] MEDS: ATORVASTATIN 80 MG TAB PO SCH (20:38)
[2020-02-06 20:43] LABS: Calcium 6.9 mg/dL (8.4-10.2); Potassium 4.1 mmol/L (3.5-5.1)
[2020-02-06] MEDS ORDERED: INSULIN DETEMIR (LEVEMIR) 100 UNIT/ML SYR SQ SCH (21:00)
[2020-02-06 21:11] VITALS: BP 122/51
[2020-02-07 00:51] LABS: Glucose,Whole Blood 350 mg/dL (75-99)
[2020-02-07] MEDS: INSULIN ASPART (NovoLOG) 100 UNIT/ML VIAL SQ SCH ×2 (00:53→06:43)
[2020-02-07 04:31] LABS: INR 1.9 (<1.2); Partial Thromboplastin Time 58.4 sec (22.0-30.0); Prothrombin Time 18.5 sec (9.0-12.0)
[2020-02-07 04:36] LABS: Basophils % (A) 0 %; Eosinophils % (A) 0 %; HGB 9.6 gm/dL (11.4-16.0); Hypochromasia Slight; Lymphocytes # (A) 1.2 k/uL (1.0-4.8); Lymphocytes % (A) 8 %; MCH 27.7 pg (25.0-35.0); Mean Platelet Volume 10.1; Monocytes # (A) 0.7 k/uL (0-1.0); Monocytes % (A) 5 %; Neutrophils # (A) 11.9 k/uL (1.3-7.7); Neutrophils % (A) 85 %; Platelet Count 144 k/uL (150-450); RBC 3.46 m/uL (3.80-5.40); RDW 15.1 % (11.5-15.5); WBC 13.9 k/uL (3.8-10.6)
[2020-02-07 04:39] LABS: Albumin 2.6 g/dL (3.5-5.0); Calcium 6.5 mg/dL (8.4-10.2); Total Bilirubin 1.3 mg/dL (0.2-1.3); Total Protein 4.9 g/dL (6.3-8.2)
[2020-02-07 04:51] LABS: ABG Base Excess -4.7 mmol/L; ABG HCO3 20 mmol/L (21-25); ABG PCO2 30 mmHg (35-45); ABG PH 7.43 (7.35-7.45); ABG PO2 86 mmHg (83-108); ABG TCO2 21 mmol/L (19-24); Allen Test Performed? no
[2020-02-07] MEDS: DEXTROSE 5% IN WATER 1,000 ML with SODIUM BICARB (1 MEQ/ML) 150 ML IV SCH (05:14)
[2020-02-07 06:05] LABS: Glucose,Whole Blood 323 mg/dL (75-99)
--- NOTE | 2020-02-07 06:26 | XR ---
EXAMINATION TYPE: XR chest 1V portable DATE OF EXAM: 02/07/2020 HISTORY: Tube placement. REFERENCE: Previous study dated 02/06/2020. FINDINGS: There has been an ACDF of the lower cervical spine. The patient is ET tube, NG tube and left internal jugular catheters remain in place, unchanged in [place]. Heart size upper limits of normal. There is bibasilar airspace disease. There are bilateral effusions . Overall there may been slight worsening in the appearance of the chest. IMPRESSION: SLIGHT WORSENING IN THE APPEARANCE OF THE CHEST.
[2020-02-07] MEDS ORDERED: INSULIN REGULAR BOLUS (FROM DRIP BAG) IV PRN (08:45)
[2020-02-07] MEDS ORDERED: FUROSEMIDE 10 MG/ML 10 ML VIAL IV STA (08:45)
[2020-02-07] MEDS ORDERED: INSULIN REGULAR 100 UNIT in SODIUM CHLORIDE 0.9% 100 ML IV SCH (09:00)
[2020-02-07] MEDS ORDERED: DEXTROSE/WATER 1 250ML.BAG with DOPamine DRIP 800 MG IV SCH (09:15)
[2020-02-07] MEDS ORDERED: AMIODARONE 200 MG TAB PO SCH (09:15)
[2020-02-07 09:23] LABS: Glucose,Whole Blood 321 mg/dL (75-99)
[2020-02-07] MEDS ORDERED: SODIUM CHLORIDE 0.9% 500 ML 500 ML IV SCH (09:30)
[2020-02-07] MEDS: PANTOPRAZOLE 40 MG/10 ML VIAL IVP SCH (09:51)
[2020-02-07] MEDS: ASPIRIN 81 MG PO SCH (09:51)
[2020-02-07] MEDS: METOPROLOL TARTRATE 12.5 MG TAB PO SCH ×2 (09:51→11:36)
[2020-02-07] MEDS: TICAGRELOR 90 MG TAB PO SCH (09:52)
[2020-02-07] MEDS: CHLORHEXIDINE GLUCONATE 15 ML CUP MUCOUS MEM SCH (09:52)
[2020-02-07 10:16] LABS: Glucose,Whole Blood 323 mg/dL (75-99)
[2020-02-07] MEDS: GABAPENTIN 300 MG CAP PO SCH (10:29)
[2020-02-07] MEDS: NOREPINEPHRINE 32 MG in SODIUM CHLORIDE 0.9% 218 ML IV SCH (10:47)
[2020-02-07 11:08] LABS: Glucose,Whole Blood 264 mg/dL (75-99)
[2020-02-07 11:36] LABS: Glucose,Whole Blood 253 mg/dL (75-99)
[2020-02-07 11:53] LABS: ABG HCO3 21 mmol/L (21-25); ABG Oxygen Saturation 84.8 % (94-97); ABG PCO2 42 mmHg (35-45); ABG PH 7.31 (7.35-7.45); ABG TCO2 22 mmol/L (19-24); Allen Test Performed? Yes
[2020-02-07 11:57] LABS: ABG PO2 59 mmHg (83-108)
--- NOTE | 2020-02-07 12:15 | P.PN ---
Subjective Progress Note Date: 02/07/20 Follow-up for acute kidney injury. Urine output of 127 ML's overnight. On a ventilator 100% oxygen. On IABP. Objective - Vital Signs Vital signs: Vital Signs Temp 97.8 F 02/07/20 08:00 Pulse 83 02/07/20 11:30 Resp 21 02/07/20 11:30 BP 122/51 02/06/20 21:00 Pulse Ox 89 L 02/07/20 11:00 Intake & Output 02/06/20 02/07/20 02/07/20 18:59 06:59 18:59 Intake Total 6466.955 9168.511 298.926 Output Total 147 159 127 Balance 7217.801 0557.511 171.926 Weight 84.8 kg 87.6 kg Intake: IV 1363 891.2 184 0.9 NaCl- 120 120 40 Amiodarone 0.5mg/hr 360 63.2 D50 Bolus 50 IABP Pressure bag 36 36 18 Pressure bags (AL & CVP) 72 72 36 Sodium Chloride 0.9% 500 40 ml 500 ml @ 20 mls/hr IV .Q24H [facility] Rx#:[id number] Sodium bicarbonate IVP ( 150 bolus) Sodium bicarbonate drip ( 575 600 50 150mg in d5w) Intake, IV Titration 537.186 294.311 114.926 Amount Amiodarone 360 mg In 121.669 Dextrose 5% in Water 200 ml @ 0.5 MG/MIN 16.667 mls/hr IV .Q12H [facility] Rx#: [id number] Heparin Sod,Pork in 0.45% 78.817 NaCl 25,000 unit In 0.45 % NaCl 1 250ml.bag @ 11.6 UNITS/KG/HR 10.011 mls/ hr IV .Q24H [facility] Rx#: [id number] Insulin Regular 100 unit 17.120 In Sodium Chloride 0.9% 100 ml @ Per Protocol IV .Q0M [facility] Rx#:[id number] Norepinephrine 32 mg In 144.184 105.303 32.072 Sodium Chloride 0.9% 218 ml @ 0.05 MCG/KG/MIN 2. 023 mls/hr IV .Q24H [facility] Rx#:[id number] Propofol 1,000 mg In 192.516 189.008 65.734 Empty Bag 1 bag @ Titrate IV .Q0M [facility] Rx#: [id number] Oral 45 Output: Urine 147 159 127 Other: Voiding Method Indwelling Catheter Indwelling Catheter Indwelling Catheter ABP, PAP, CO, CI - Last Documented Arterial Blood Pressure 84/39 - Exam Oral intubation S1-S2 heard Bilateral decreased breath sounds Lackey catheter Edema - Labs CBC & Chem 7: 02/07/20 04:08 02/07/20 04:08 Labs: Abnormal Lab Results - Last 24 Hours (Table) 02/06/20 02/06/20 02/06/20 Range/Units 12:45 12:51 13:00 WBC (3.8-10.6) k/uL RBC (3.80-5.40) m/uL Hgb (11.4-16.0) gm/dL Hct (34.0-46.0) % Plt Count (150-450) k/uL Neutrophils # (1.3-7.7) k/uL PT (9.0-12.0) sec INR (<1.2) APTT 48.0 H (22.0-30.0) sec ABG pH (7.35-7.45) ABG pCO2 (35-45) mmHg ABG pO2 (83-108) mmHg ABG HCO3 (21-25) mmol/L ABG Total CO2 (19-24) mmol/L ABG O2 Saturation (94-97) % Sodium 132 L (137-145) mmol/L Chloride (98-107) mmol/L Carbon Dioxide 14 L (22-30) mmol/L BUN 49 H (7-17) mg/dL Creatinine 2.85 H (0.52-1.04) mg/dL Glucose 257 H (74-99) mg/dL POC Glucose (mg/dL) 309 H (75-99) mg/dL Calcium 7.1 L (8.4-10.2) mg/dL Total Bilirubin 1.6 H (0.2-1.3) mg/dL AST 6630 H (14-36) U/L ALT 3503 H (4-34) U/L Total Protein 4.9 L (6.3-8.2) g/dL Albumin 2.8 L (3.5-5.0) g/dL 02/06/20 02/06/20 02/06/20 Range/Units 17:11 18:24 18:27 WBC (3.8-10.6) k/uL RBC (3.80-5.40) m/uL Hgb (11.4-16.0) gm/dL Hct (34.0-46.0) % Plt Count (150-450) k/uL Neutrophils # (1.3-7.7) k/uL PT (9.0-12.0) sec INR (<1.2) APTT (22.0-30.0) sec ABG pH 7.51 H (7.35-7.45) ABG pCO2 18 L* (35-45) mmHg ABG pO2 (83-108) mmHg ABG HCO3 14 L (21-25) mmol/L ABG Total CO2 15 L (19-24) mmol/L ABG O2 Saturation 98.0 H (94-97) % Sodium (137-145) mmol/L Chloride (98-107) mmol/L Carbon Dioxide (22-30) mmol/L BUN (7-17) mg/dL Creatinine (0.52-1.04) mg/dL Glucose (74-99) mg/dL POC Glucose (mg/dL) 339 H 287 H (75-99) mg/dL Calcium (8.4-10.2) mg/dL Total Bilirubin (0.2-1.3) mg/dL AST (14-36) U/L ALT (4-34) U/L Total Protein (6.3-8.2) g/dL Albumin (3.5-5.0) g/dL 02/06/20 02/06/20 02/07/20 Range/Units 20:20 20:23 00:49 WBC (3.8-10.6) k/uL RBC (3.80-5.40) m/uL Hgb (11.4-16.0) gm/dL Hct (34.0-46.0) % Plt Count (150-450) k/uL Neutrophils # (1.3-7.7) k/uL PT (9.0-12.0) sec INR (<1.2) APTT (22.0-30.0) sec ABG pH (7.35-7.45) ABG pCO2 27 L (35-45) mmHg ABG pO2 (83-108) mmHg ABG HCO3 17 L (21-25) mmol/L ABG Total CO2 18 L (19-24) mmol/L ABG O2 Saturation 97.2 H (94-97) % Sodium 129 L (137-145) mmol/L Chloride 97 L (98-107) mmol/L Carbon Dioxide 18 L (22-30) mmol/L BUN 55 H (7-17) mg/dL Creatinine 3.15 H (0.52-1.04) mg/dL Glucose 290 H (74-99) mg/dL POC Glucose (mg/dL) 350 H (75-99) mg/dL Calcium 6.9 L (8.4-10.2) mg/dL Total Bilirubin (0.2-1.3) mg/dL AST (14-36) U/L ALT (4-34) U/L Total Protein (6.3-8.2) g/dL Albumin (3.5-5.0) g/dL 02/07/20 02/07/20 02/07/20 Range/Units 04:08 04:08 04:08 WBC 13.9 H (3.8-10.6) k/uL RBC 3.46 L (3.80-5.40) m/uL Hgb 9.6 L (11.4-16.0) gm/dL Hct 29.0 L (34.0-46.0) % Plt Count 144 L (150-450) k/uL Neutrophils # 11.9 H (1.3-7.7) k/uL PT 18.5 H (9.0-12.0) sec INR 1.9 H (<1.2) APTT 58.4 H (22.0-30.0) sec ABG pH (7.35-7.45) ABG pCO2 (35-45) mmHg ABG pO2 (83-108) mmHg ABG HCO3 (21-25) mmol/L ABG Total CO2 (19-24) mmol/L ABG O2 Saturation (94-97) % Sodium 128 L (137-145) mmol/L Chloride 97 L (98-107) mmol/L Carbon Dioxide 20 L (22-30) mmol/L BUN 62 H (7-17) mg/dL Creatinine 3.30 H (0.52-1.04) mg/dL Glucose 286 H (74-99) mg/dL POC Glucose (mg/dL) (75-99) mg/dL Calcium 6.5 L (8.4-10.2) mg/dL Total Bilirubin (0.2-1.3) mg/dL AST 4064 H (14-36) U/L ALT 2704 H (4-34) U/L Total Protein 4.9 L (6.3-8.2) g/dL Albumin 2.6 L (3.5-5.0) g/dL 02/07/20 02/07/20 02/07/20 Range/Units 04:26 06:03 09:21 WBC (3.8-10.6) k/uL RBC (3.80-5.40) m/uL Hgb (11.4-16.0) gm/dL Hct (34.0-46.0) % Plt Count (150-450) k/uL Neutrophils # (1.3-7.7) k/uL PT (9.0-12.0) sec INR (<1.2) APTT (22.0-30.0) sec ABG pH (7.35-7.45) ABG pCO2 30 L (35-45) mmHg ABG pO2 (83-108) mmHg ABG HCO3 20 L (21-25) mmol/L ABG Total CO2 (19-24) mmol/L ABG O2 Saturation (94-97) % Sodium (137-145) mmol/L Chloride (98-107) mmol/L Carbon Dioxide (22-30) mmol/L BUN (7-17) mg/dL Creatinine (0.52-1.04) mg/dL Glucose (74-99) mg/dL POC Glucose (mg/dL) 323 H 321 H (75-99) mg/dL Calcium (8.4-10.2) mg/dL Total Bilirubin (0.2-1.3) mg/dL AST (14-36) U/L ALT (4-34) U/L Total Protein (6.3-8.2) g/dL Albumin (3.5-5.0) g/dL 02/07/20 02/07/20 02/07/20 Range/Units 10:07 11:07 11:34 WBC (3.8-10.6) k/uL RBC (3.80-5.40) m/uL Hgb (11.4-16.0) gm/dL Hct (34.0-46.0) % Plt Count (150-450) k/uL Neutrophils # (1.3-7.7) k/uL PT (9.0-12.0) sec INR (<1.2) APTT (22.0-30.0) sec ABG pH (7.35-7.45) ABG pCO2 (35-45) mmHg ABG pO2 (83-108) mmHg ABG HCO3 (21-25) mmol/L ABG Total CO2 (19-24) mmol/L ABG O2 Saturation (94-97) % Sodium (137-145) mmol/L Chloride (98-107) mmol/L Carbon Dioxide (22-30) mmol/L BUN (7-17) mg/dL Creatinine (0.52-1.04) mg/dL Glucose (74-99) mg/dL POC Glucose (mg/dL) 323 H 264 H 253 H (75-99) mg/dL Calcium (8.4-10.2) mg/dL Total Bilirubin (0.2-1.3) mg/dL AST (14-36) U/L ALT (4-34) U/L Total Protein (6.3-8.2) g/dL Albumin (3.5-5.0) g/dL 02/07/20 Range/Units 11:46 WBC (3.8-10.6) k/uL RBC (3.80-5.40) m/uL Hgb (11.4-16.0) gm/dL Hct (34.0-46.0) % Plt Count (150-450) k/uL Neutrophils # (1.3-7.7) k/uL PT (9.0-12.0) sec INR (<1.2) APTT (22.0-30.0) sec ABG pH 7.31 L (7.35-7.45) ABG pCO2 (35-45) mmHg ABG pO2 59 L* (83-108) mmHg ABG HCO3 (21-25) mmol/L ABG Total CO2 (19-24) mmol/L ABG O2 Saturation 84.8 L (94-97) % Sodium (137-145) mmol/L Chloride (98-107) mmol/L Carbon Dioxide (22-30) mmol/L BUN (7-17) mg/dL Creatinine (0.52-1.04) mg/dL Glucose (74-99) mg/dL POC Glucose (mg/dL) (75-99) mg/dL Calcium (8.4-10.2) mg/dL Total Bilirubin (0.2-1.3) mg/dL AST (14-36) U/L ALT (4-34) U/L Total Protein (6.3-8.2) g/dL Albumin (3.5-5.0) g/dL Microbiology - Last 24 Hours (Table) 02/05/20 01:34 Gram Stain - Final Sputum Sputum Culture - Final Assessment and Plan Assessment: #1 oliguric ELLA secondary to ischemic ATN from hypotension. Baseline creatinine 1.0 MG per DL #2 cardiogenic shock on IABP #3 volume overload #4 ventilator-dependent respiratory failure #5 hyperkalemia, better #6 anion gap metabolic acidosis #7 CHF with systolic dysfunction EF of 20% #8 hypervolemic hyponatremia Plan: #1 renal function stable, potassium within normal range. #2 did not respond to 80 mg IV Lasix in the morning. #3 hemodynamically unstable for INTERVENTIONAL TECH at this time. #4 guarded prognosis, we will follow along. #5 avoid nephrotoxic agents and hypotensive episodes
[2020-02-07 12:33] LABS: Glucose,Whole Blood 222 mg/dL (75-99)
[2020-02-07 13:11] LABS: Glucose,Whole Blood 230 mg/dL (75-99)
--- NOTE | 2020-02-07 13:16 | P.PN ---
Subjective Progress Note Date: 02/07/20 This is a 79-year-old female patient was multiple medical positive comorbidities including history of coronary artery disease and the patient has undergone multiple coronary stenting of the LAD and RCA in the past last cardiac catheterization was in 2018. The patient came into the emergency department yesterday with progressive worsening shortness of breath. The patient was found to be CHF. The patient also was found to have an acute non-ST segment myocardial infarction. Troponins were quite elevated. The patient apparently had been having worsening shortness of breath for the past 3 days. Subsequently, shortness of breath became constant and she also expressed some chest pain. Her EKG showed T-wave inversions in the lateral precordial leads. The patient had normal troponin and a troponin peaked at 44 and the patient had a elevated proBNP level of 16,500. The patient underwent a CT angiogram that showed no evidence of any pulmonary embolism. There is some market groundglass bilateral opacities in bilateral pleural effusion consistent with CHF. The phan ent also had a CAT scan of the abdomen and pelvis that showed again bilateral pleural effusion without any similar significant abnormalities. The patient was admitted to the ICU and the patient was placed on a combination of aspirin and IV heparin. The patient was also started on Lasix drip at 10 mg an hour. Urine output this morning was quite low and the patient was having diminished pulses in all 4 extremities and extremities were cold and clammy. An echocardiogram at the bedside and the patient was found to have an ejection fraction of less than 20%. There was several segmental wall motion abnormalities including the midanterior LV wall, lateral wall, a few wall, anteroseptal wall, anteroseptal wall, apical and there was evidence of severe mitral regurgitation and moderate tricuspid regurgitation. Overnight, the patient became progressively more short of breath and the patient had to be intubated and placed on a mechanical ventilator. This morning, the patient was sedated with propofol. She was assist-control mode of ventilation with a rate of 20 with tidal volume of 400 a nd FiO2 of 40% with a PEEP of 5. Blood gases showed a pH of 7.37 with a pCO2 of 29 and pO2 127. She was not requiring any pressors. Arterial line was in place. Case discussed with cardiology. The patient was taken to the labor contractor and the patient underwent a cardiac catheterization. During the procedure, the patient became hypotensive and the patient developed episodes of V. tach. An intra-aortic balloon pump was inserted as the patient went into cardiogenic shock. Also, the patient was started on amiodarone drip at 1 mg per minute. The patient completed the procedure and she was found to have chronic chronically occluded proximal and mid RCA with collaterals from the left system. There was subtotal occlusion of the mid LAD and distal segment of the stented area. There was mild disease in the circumflex. And depressed and stenting of the LAD was done. Following this, the patient was brought into the intensive care unit I had to see the patient back following her cardiac catheterization and stenting. The patient was an obvious cardiac shock on intra-aortic balloon pump. I establish a triple lumen catheter in the patient is currently on norepinephrine infusion at 0.15 g per KG per minute. The patient is also on intra-aortic balloon pump with one-to-one augmentation and a augmented blood pressure of 113/50. I was able to modify tidal volume to 500 and The PEEP at 5 with an FiO2 of 40% at the rate of 20. The patient was then amiodarone drip and a cardiac rhythm was sinus. Troponin is running at 25 mg per KG per minute. Extremities are still cold and clammy/in lower oximetry is bilaterally. Chest x-ray post-line insertion showed CHF/pulmonary edema. There was adequate positioning of the orotracheal tube and the triple-lumen catheter. Blood gases and rest of the blood work is still pending for now. On 02/06/2020, the patient remains intubated on mechanical ventilator. The patient remains in shock and this essentially cardiogenic shock. The patient has an intra-aortic balloon pump which is still active with one-to-one augmentation. The augmented blood pressure is around 1:30. Unfortunately, the patient has had no major improvement in the urine output and the patient has produced only 70 mL of urine output over the past 8-10 hours. The patient continues to be shock and she has signs of multisystem organ failure including respiratory failure, kidney injury and shock liver. This morning, the patient remains on propofol running at 30 g per KG per minute. The patient is on norepinephrine infusion running at 0.35 mg per KG per minute. The patient is also on amiodarone drip at 0.5 mg an hour. She is still on IV heparin. The patient remains on a mechanical ventilator. This morning she did assist-control mode at the rate of 20 with tidal volume of 450 and FiO2 of 40% with a PEEP of 5. The blood gases showed acidosis with a pH of 7.25 and a pCO2 of 18 and pO2 of 79. While on the mechanical ventilator, the patient double stacking in an assisted ventilator changes were done. Chest x-ray showing early megaly and bilateral pleural effusions consistent with CHF. ET tube is in a good location. The patient is a left IJ triple-lumen catheter in place. The blood work showed significant acidosis which is of anion gap metabolic acidosis. The patient was started on bicarb infusion as there was concern that the patient's potassium level was gradually improving and was given a course cardiac arrhythmias. Potassium level currently is at 5.7. Serum bicarb is at 9. Anion gap is at 17. The patient was given D50 along with insulin and follow potassium levels are still pending for now. INR is at 2.3 with a PT of 22.2 and a PTT of 63.2. Liver functions is a significant elevated consistent with shock liver. The extremities remain cold and clammy with markedly diminished pulses in lower extremities bilaterally. On 02/07/2020, the patient is still critically ill. The patient remains on a mechanical ventilator and she remains in cardiogenic shock. Specifically, the patient remains sedated with propofol at 28 g per KG per minute. Norepinephrine infusion is still running at 0.13 mg per KG per minute. Fluid ba melba is positive approximately 3 L over the past 24 hours. Urine output is low in the order of 10 or 20 mL an hour. The patient remains on a mechanical ventilator. Her blood gases from yesterday showed a component of respiratory alkalosis. The necessity ventilator changes were done and the patient is currently on assist control mode with a VC plus mode at a tidal volume of 450 and FiO2 of 40% with a PEEP of 5 and the rate of 16. Blood gases showed pH of 7.43 with a pCO2 of 30 and pO2 of 86. Intra-aortic balloon pump is in place. There is one-to-one augmentation and the patient's BP is around 107. The patient remains on IV heparin. Amiodarone drip has been discontinued. I gave her another trial of Lasix 80 mg IV push to evaluate her urine output and see if there is going to be any improvement in urine output production. The creatinine is at 3.3. BUN is at 62. Sodium is at 128. Potassium is 4.0. Glucose is 286. The patient is a shock liver. The LFTs are gradually improving with an SGOT of 4064 and SGPT of 2704. Alkaline phosphatase 122. Patient is unresponsive. Arechiga s not follow any commands as the patient is quite sedated at this point in time. Family is at the bedside. Chest x-ray is consistent with pulmonary edema. ET tube is in a good location. The development of bilateral pleural effusions. The serum bicarb is at 20. Objective - Vital Signs Vital signs: Vital Signs Temp 98.1 F 02/07/20 12:00 Pulse 74 02/07/20 13:00 Resp 17 02/07/20 13:00 BP 122/51 02/06/20 21:00 Pulse Ox 91 L 02/07/20 13:00 Intake & Output 02/06/20 02/07/20 02/07/20 18:59 06:59 18:59 Intake Total 1368.754 8882.511 328.710 Output Total 147 159 127 Balance 3468.646 2172.511 201.710 Weight 84.8 kg 87.6 kg Intake: IV 1363 891.2 184 0.9 NaCl- 120 120 40 Amiodarone 0.5mg/hr 360 63.2 D50 Bolus 50 IABP Pressure bag 36 36 18 Pressure bags (AL & CVP) 72 72 36 Sodium Chloride 0.9% 500 40 ml 500 ml @ 20 mls/hr IV .Q24H RUKHSANA Rx#:[id number] Sodium bicarbonate IVP ( 150 bolus) Sodium bicarbonate drip ( 575 600 50 150mg in d5w) Intake, IV Titration 537.186 294.311 144.710 Amount Amiodarone 360 mg In 121.669 Dextrose 5% in Water 200 ml @ 0.5 MG/MIN 16.667 mls/hr IV .Q12H RUKHSANA Rx#: [id number] Heparin Sod,Pork in 0.45% 78.817 NaCl 25,000 unit In 0.45 % NaCl 1 250ml.bag @ 11.6 UNITS/KG/HR 10.011 mls/ hr IV .Q24H RUKHSANA Rx#: [id number] Insulin Regular 100 unit 17.120 In Sodium Chloride 0.9% 100 ml @ Per Protocol IV .Q0M RUKHSANA Rx#:[id number] Norepinephrine 32 mg In 144.184 105.303 32.072 Sodium Chloride 0.9% 218 ml @ 0.05 MCG/KG/MIN 2. 023 mls/hr IV .Q24H RUKHSANA Rx#:[id number] Propofol 1,000 mg In 192.516 189.008 95.518 Empty Bag 1 bag @ Titrate IV .Q0M RUKHSANA Rx#: [id number] Oral 45 Output: Urine 147 159 127 Other: Voiding Method Indwelling Catheter Indwelling Catheter Indwelling Catheter ABP, PAP, CO, CI - Last Documented Arterial Blood Pressure 92/39 - Exam Gen. appearance the patient is intubated, comfortable likely distress sedated with propofol. Orogastric and orotracheal tube are both in place. Head exam was generally normal. There was no scleral icterus or corneal arcus. Mucous membranes were moist. Neck was supple and with jugular venous distension, thyromegaly, or carotid bruits. Carotids were easily palpable bilaterally. There was no adenopathy. Patient has bilateral JVDs. No goiter or neck masses. Lungs sounds are diminished bilaterally. The breath sounds are equal and symmetrical. No wheezes. No rhonchi. Heart sounds are distant, the patient has an intra-aortic balloon pump with one-to-one augmentation. No significant murmurs could be appreciated. Abdominal exam revealed normal bowel sounds. The abdomen was soft, non-tender, and without masses, organomegaly, or appreciable enlargement of the abdominal aorta. Extremities are cold and clammy and there are diminished pulses no friction especially lower extremities bilaterally. No cyanosis. No clubbing. Examination of the skin revealed no evidence of significant rashes, suspicious appearing nevi or other concerning lesions. Neurologically the patient is sedated and calm and comfortable currently on propofol. The patient has a left IJ triple-lumen catheter which is also in place. The patient has a intra-aortic balloon pump in the femoral artery. - Labs CBC & Chem 7: 02/07/20 04:08 02/07/20 04:08 Labs: Abnormal Lab Results - Last 24 Hours (Table) 02/06/20 02/06/20 02/06/20 Range/Units 12:45 13:00 17:11 WBC (3.8-10.6) k/uL RBC (3.80-5.40) m/uL Hgb (11.4-16.0) gm/dL Hct (34.0-46.0) % Plt Count (150-450) k/uL Neutrophils # (1.3-7.7) k/uL PT (9.0-12.0) sec INR (<1.2) APTT 48.0 H (22.0-30.0) sec ABG pH 7.51 H (7.35-7.45) ABG pCO2 18 L* (35-45) mmHg ABG pO2 (83-108) mmHg ABG HCO3 14 L (21-25) mmol/L ABG Total CO2 15 L (19-24) mmol/L ABG O2 Saturation 98.0 H (94-97) % Sodium 132 L (137-145) mmol/L Chloride (98-107) mmol/L Carbon Dioxide 14 L (22-30) mmol/L BUN 49 H (7-17) mg/dL Creatinine 2.85 H (0.52-1.04) mg/dL Glucose 257 H (74-99) mg/dL POC Glucose (mg/dL) (75-99) mg/dL Calcium 7.1 L (8.4-10.2) mg/dL Total Bilirubin 1.6 H (0.2-1.3) mg/dL AST 6630 H (14-36) U/L ALT 3503 H (4-34) U/L Total Protein 4.9 L (6.3-8.2) g/dL Albumin 2.8 L (3.5-5.0) g/dL 02/06/20 02/06/20 02/06/20 Range/Units 18:24 18:27 20:20 WBC (3.8-10.6) k/uL RBC (3.80-5.40) m/uL Hgb (11.4-16.0) gm/dL Hct (34.0-46.0) % Plt Count (150-450) k/uL Neutrophils # (1.3-7.7) k/uL PT (9.0-12.0) sec INR (<1.2) APTT (22.0-30.0) sec ABG pH (7.35-7.45) ABG pCO2 (35-45) mmHg ABG pO2 (83-108) mmHg ABG HCO3 (21-25) mmol/L ABG Total CO2 (19-24) mmol/L ABG O2 Saturation (94-97) % Sodium 129 L (137-145) mmol/L Chloride 97 L (98-107) mmol/L Carbon Dioxide 18 L (22-30) mmol/L BUN 55 H (7-17) mg/dL Creatinine 3.15 H (0.52-1.04) mg/dL Glucose 290 H (74-99) mg/dL POC Glucose (mg/dL) 339 H 287 H (75-99) mg/dL Calcium 6.9 L (8.4-10.2) mg/dL Total Bilirubin (0.2-1.3) mg/dL AST (14-36) U/L ALT (4-34) U/L Total Protein (6.3-8.2) g/dL Albumin (3.5-5.0) g/dL 02/06/20 02/07/20 02/07/20 Range/Units 20:23 00:49 04:08 WBC 13.9 H (3.8-10.6) k/uL RBC 3.46 L (3.80-5.40) m/uL Hgb 9.6 L (11.4-16.0) gm/dL Hct 29.0 L (34.0-46.0) % Plt Count 144 L (150-450) k/uL Neutrophils # 11.9 H (1.3-7.7) k/uL PT (9.0-12.0) sec INR (<1.2) APTT (22.0-30.0) sec ABG pH (7.35-7.45) ABG pCO2 27 L (35-45) mmHg ABG pO2 (83-108) mmHg ABG HCO3 17 L (21-25) mmol/L ABG Total CO2 18 L (19-24) mmol/L ABG O2 Saturation 97.2 H (94-97) % Sodium (137-145) mmol/L Chloride (98-107) mmol/L Carbon Dioxide (22-30) mmol/L BUN (7-17) mg/dL Creatinine (0.52-1.04) mg/dL Glucose (74-99) mg/dL POC Glucose (mg/dL) 350 H (75-99) mg/dL Calcium (8.4-10.2) mg/dL Total Bilirubin (0.2-1.3) mg/dL AST (14-36) U/L ALT (4-34) U/L Total Protein (6.3-8.2) g/dL Albumin (3.5-5.0) g/dL 02/07/20 02/07/20 02/07/20 Range/Units 04:08 04:08 04:26 WBC (3.8-10.6) k/uL RBC (3.80-5.40) m/uL Hgb (11.4-16.0) gm/dL Hct (34.0-46.0) % Plt Count (150-450) k/uL Neutrophils # (1.3-7.7) k/uL PT 18.5 H (9.0-12.0) sec INR 1.9 H (<1.2) APTT 58.4 H (22.0-30.0) sec ABG pH (7.35-7.45) ABG pCO2 30 L (35-45) mmHg ABG pO2 (83-108) mmHg ABG HCO3 20 L (21-25) mmol/L ABG Total CO2 (19-24) mmol/L ABG O2 Saturation (94-97) % Sodium 128 L (137-145) mmol/L Chloride 97 L (98-107) mmol/L Carbon Dioxide 20 L (22-30) mmol/L BUN 62 H (7-17) mg/dL Creatinine 3.30 H (0.52-1.04) mg/dL Glucose 286 H (74-99) mg/dL POC Glucose (mg/dL) (75-99) mg/dL Calcium 6.5 L (8.4-10.2) mg/dL Total Bilirubin (0.2-1.3) mg/dL AST 4064 H (14-36) U/L ALT 2704 H (4-34) U/L Total Protein 4.9 L (6.3-8.2) g/dL Albumin 2.6 L (3.5-5.0) g/dL 02/07/20 02/07/20 02/07/20 Range/Units 06:03 09:21 10:07 WBC (3.8-10.6) k/uL RBC (3.80-5.40) m/uL Hgb (11.4-16.0) gm/dL Hct (34.0-46.0) % Plt Count (150-450) k/uL Neutrophils # (1.3-7.7) k/uL PT (9.0-12.0) sec INR (<1.2) APTT (22.0-30.0) sec ABG pH (7.35-7.45) ABG pCO2 (35-45) mmHg ABG pO2 (83-108) mmHg ABG HCO3 (21-25) mmol/L ABG Total CO2 (19-24) mmol/L ABG O2 Saturation (94-97) % Sodium (137-145) mmol/L Chloride (98-107) mmol/L Carbon Dioxide (22-30) mmol/L BUN (7-17) mg/dL Creatinine (0.52-1.04) mg/dL Glucose (74-99) mg/dL POC Glucose (mg/dL) 323 H 321 H 323 H (75-99) mg/dL Calcium (8.4-10.2) mg/dL Total Bilirubin (0.2-1.3) mg/dL AST (14-36) U/L ALT (4-34) U/L Total Protein (6.3-8.2) g/dL Albumin (3.5-5.0) g/dL 02/07/20 02/07/20 02/07/20 Range/Units 11:07 11:34 11:46 WBC (3.8-10.6) k/uL RBC (3.80-5.40) m/uL Hgb (11.4-16.0) gm/dL Hct (34.0-46.0) % Plt Count (150-450) k/uL Neutrophils # (1.3-7.7) k/uL PT (9.0-12.0) sec INR (<1.2) APTT (22.0-30.0) sec ABG pH 7.31 L (7.35-7.45) ABG pCO2 (35-45) mmHg ABG pO2 59 L* (83-108) mmHg ABG HCO3 (21-25) mmol/L ABG Total CO2 (19-24) mmol/L ABG O2 Saturation 84.8 L (94-97) % Sodium (137-145) mmol/L Chloride (98-107) mmol/L Carbon Dioxide (22-30) mmol/L BUN (7-17) mg/dL Creatinine (0.52-1.04) mg/dL Glucose (74-99) mg/dL POC Glucose (mg/dL) 264 H 253 H (75-99) mg/dL Calcium (8.4-10.2) mg/dL Total Bilirubin (0.2-1.3) mg/dL AST (14-36) U/L ALT (4-34) U/L Total Protein (6.3-8.2) g/dL Albumin (3.5-5.0) g/dL 02/07/20 Range/Units 12:32 WBC (3.8-10.6) k/uL RBC (3.80-5.40) m/uL Hgb (11.4-16.0) gm/dL Hct (34.0-46.0) % Plt Count (150-450) k/uL Neutrophils # (1.3-7.7) k/uL PT (9.0-12.0) sec INR (<1.2) APTT (22.0-30.0) sec ABG pH (7.35-7.45) ABG pCO2 (35-45) mmHg ABG pO2 (83-108) mmHg ABG HCO3 (21-25) mmol/L ABG Total CO2 (19-24) mmol/L ABG O2 Saturation (94-97) % Sodium (137-145) mmol/L Chloride (98-107) mmol/L Carbon Dioxide (22-30) mmol/L BUN (7-17) mg/dL Creatinine (0.52-1.04) mg/dL Glucose (74-99) mg/dL POC Glucose (mg/dL) 222 H (75-99) mg/dL Calcium (8.4-10.2) mg/dL Total Bilirubin (0.2-1.3) mg/dL AST (14-36) U/L ALT (4-34) U/L Total Protein (6.3-8.2) g/dL Albumin (3.5-5.0) g/dL Microbiology - Last 24 Hours (Table) 02/05/20 01:34 Gram Stain - Final Sputum Sputum Culture - Final Assessment and Plan Plan: 1 acute non-STEMI post cardiac catheterization and post stenting of a subtotally occluded mid LAD and distal segment of the stented area. The patient was also found to have chronically occluded proximal and mid RCA with collateral system from the left. 2 cardiogenic shock secondary to above. Patient ejection fraction is less then 20% and the patient has segmental wall motion abnormalities based on echocardiogram. There is also evidence of severe mitral regurgitation. The patient currently has an intra-aortic balloon pump with one-to-one augmentation. The patient has developed multisystem organ failure secondary to cardiogenic shock. Remains dependent on pressors and intra-aortic balloon pump. Urine output is still low and the patient remains oliguric. No major improvement in the condition. The patient remains on a bicarb drip. The patient's acidosis is improved although urine output is still low in the creatinine is on the rise. Patient has shock liver. The patient is also an acute kidney injury. 3 shock liver secondary to hypotension and multisystem organ failure 4 acute kidney injury secondary to above. 5 V. tach during cardiac catheterization and the patient is currently off amiodarone and the rhythm is sinus. 6 acute hypoxic respiratory failure secondary to above and the patient is currently intubated on a mechanical ventilator , this is secondary to pulmonary edema and cardiogenic shock. The chest exit from today showing bilateral pleural effusions and pulmonary edema. 7 anion gap metabolic acidosis, improved on bicarb infusion 8 known history of coronary artery disease with multiple coronary stenting in the past 9 diabetes mellitus type 2 10 chronic fibromyalgia 11 hyperlipidemia 12 history of hypertension 13 history of a large chronic hiatal hernia 14 history of colonic diverticulosis and irritable bowel disease 15 history of left renal calculi, symptomatic 16 history of recurrent DVTs and the patient has not been taking Pradaxa on an outpatient basis 17 history of skin cancer 18 history of chronic back pain 19 history of dementia on Namenda 20 history of restless leg syndrome and tremors Plan Continue ventilator support Repeated the blood gas in few hours and necessity ventilator changes will be done accordingly Lasix 80 mg IV push 2 unstable for any dialysis and this will be discussed with nephrology Discontinue the amiodarone drip Continue IV heparin Continue aspirin and Brilinta Continue norepinephrine infusion for blood pressure control Keep the intra-aortic balloon pump Monitor urine output Condition is obviously critical with poor prognosis. Condition is critical, prognosis poor based on presence of cardiogenic shock and multisystem organ failure. Her condition carries a very high mortality. We'll continue to follow make further recommendations based on her progress. Condition is critical. This evaluation was done and more than 30 hour. I met with the family. Somewhat family members have arrived from out of town from other states. The understand the situation and they're very highly considering withdrawing care and comfort care measures. We'll continue to follow meanwhile. Case was also discussed with cardiology. Time with Patient: Greater than 30
[2020-02-07 14:21] LABS: Glucose,Whole Blood 187 mg/dL (75-99)
[2020-02-07] MEDS: DULoxetine HCL 60 MG CAPSULE.DR PO SCH (14:42)
[2020-02-07 15:04] LABS: Glucose,Whole Blood 169 mg/dL (75-99)
--- NOTE | 2020-02-07 15:27 | PN ---
PROGRESS NOTE This lady has a history of cardiogenic shock with stenting of LAD known, RCA is occluded. She is on a balloon pump. Her creatinine is up to 3.3. Urine output has resumed, has been about 20-30 mL for the last few hours but overall prognosis remains poor. I came back and talked to the patient's and also son and daughter-in- law. I suggested that overall prognosis is poor. Possibility of her returning to a meaningful quality of life is less than 5% and comfort care would be advised. They are thinking about this and they are waiting for two more family members to make the decision. Physical exam reveals S1, S2 heard normally. Short systolic murmur is audible. Lungs reveal diminished air entry. Abdomen is soft. Lower extremities Doppler pulses are palpable. Prognosis remains poor. MMODL / IJN: [id number] /
[2020-02-07] MEDS ORDERED: MORPHINE SULFATE 2 MG/ML SYRINGE IV PRN (16:09)
[2020-02-07] MEDS ORDERED: MORPHINE SULFATE 2 MG/ML SYRINGE IVP ONE (16:09)
[2020-02-07] MEDS ORDERED: ATROPINE OPHTH SOLN 1% 5ML BTL SUBLINGUAL PRN (16:09)
[2020-02-07] MEDS ORDERED: MORPHINE SULFATE (100 MG/2 ML) 100 MG in SODIUM CHLORIDE 0.9% 100 ML IV SCH (16:15)
[2020-02-07 17:01] VITALS: TEMP 97.6
[2020-02-07 18:19] VITALS: PULSE 75; RESP 16
--- NOTE | 2020-02-07 23:15 | P.PN ---
Subjective Progress Note Date: 02/06/20 Principal diagnosis: Cardiogenic shock NTEMI Patient is a 79-year-old female with a known history of coronary artery disease status post stent placement x6 as per patient, history of DVT on Pradaxa, fibromyalgia, hypertension, hyperlipidemia, history of DC, osteoarthritis and rh eumatoid arthritis, ilz-viaxsyk-yljxoevh type 2, diabetic peripheral neuropathy and chronic back pain and other multiple medical problems came to ER with the complaints of chest pain and worsening shortness of breath since yesterday. Patient states that she felt bandlike sensation across the upper chest and to the back. Symptoms are getting worse since yesterday afternoon.Patient has been having ongoing symptoms. Patient has been having symptoms for the past 2 days. No complaints of cough or sputum production. No fever no chills. No nausea vomiting or abdominal pain or diarrhea. Denied any recent illnesses. Patient called EMS today. Was found to be pale and diaphoretic. Patient was given aspirin and 2 nitroglycerin tablets enroute to ER which did drop her blood pressure [address] angiogram of the chest showed findings consistent with congestive heart failure with bilateral pleural effusions. CT of the abdomen pelvis was done showed no acute intra-abdominal adenopathy or abnormality. EKG showed sinus tachycardia. T wave Inversions in the lateral leads. Laboratory data showed WBC 9.3, hemoglobin 9.6 and platelets 286 D-dimer 3.17 Sodium 133, potassium 4.7, BUN 22 and creatinine 0.91, bicarb 15 Blood sugar was 291 on admission AST 98 and ALT 30 Troponin 7.36, 27.1 and 44.3 proBNP 16 500 Lipase 32 02/05/20 Patient is status post cardiac catheterization. During procedure patient came hypotensive and developed episode of V. tach. Patient was intubated. An intra- aortic balloon pump was inserted as the patient went into cardiogenic shock. Patient was started on amiodarone drip. Cardiac catheterization showed chronically occluded proximal and mid RCA with collaterals from the left system. There was subtotal occlusion of the mid LAD and distal segment of the stented area. There is mild disease in the circumflex. Stenting of the LAD was done. Patient is currently being monitored in the MICU. Chest x-ray showed CHF/pulmonary edema. Current laboratory data and medications reviewed. Laboratory data showed WBC 13.0, hemoglobin 9.9 and platelets 327 INR 3.5 Sodium 131, potassium 5.8, chloride 105, bicarbonate 39 BUN 31 creatinine 1.6 Blood sugar is 287 AST 581, ALT 319 and alk phos 96 02/06/2020 Patient remains on mechanical ventilator secondary to cardiogenic shock. Patient is also on intra-aortic balloon pump. Patient is on sedation. Continued on pressor support with norepinephrine and also on amiodarone drip. Patient is on IV heparin drip. Laboratory data this morning showed pH of 7.25, PCO2 18, PO2 79 and bicarb is 8 Sodium 139, potassium 5.7, chloride 103 and bicarb is 9 BUN 41 and creatinine 2.51 Marisa is elevated with AST 2957, ALT 2030 alk phos 130 Bilirubin is 1.5 Patient is been shock liver. Chest x-ray showed mildly decreased pulmonary vascular congestion. Persistent small bilateral pleural effusions right greater than left. Patient has been afebrile. Current medications reviewed. Objective - Vital Signs Vital signs: Vital Signs Temp 98.2 F 02/06/20 20:00 Pulse 58 L 02/06/20 21:00 Resp 17 02/06/20 21:00 BP 122/51 02/06/20 21:00 Pulse Ox 97 02/06/20 21:00 Intake & Output 02/06/20 02/06/20 02/07/20 06:59 18:59 06:59 Intake Total 4206.091 1041.186 300.2 Output Total 199 147 30 Balance 3651.407 0864.186 270.2 Weight 84.8 kg 84.8 kg Intake: IV 645.45 1363 270.2 0.9 NaCl- 180 120 30 Amiodarone 0.5mg/hr 360 63.2 Amiodarone 1 mg/hr 233.19 Amiodarone 360 mg In 133.26 Dextrose 5% in Water 200 ml @ 0.5 MG/MIN 16.667 mls/hr IV .Q12H [facility] Rx#: [id number] D50 Bolus 50 IABP Pressure bag 33 36 9 Pressure bags (AL & CVP) 66 72 18 Sodium bicarbonate IVP ( 150 bolus) Sodium bicarbonate drip ( 575 150 150mg in d5w) Intake, IV Titration 796.188 537.186 Amount Amiodarone 360 mg In 428.887 121.669 Dextrose 5% in Water 200 ml @ 0.5 MG/MIN 16.667 mls/hr IV .Q12H [facility] Rx#: [id number] Heparin Sod,Pork in 0.45% 52.472 78.817 NaCl 25,000 unit In 0.45 % NaCl 1 250ml.bag @ 11.6 UNITS/KG/HR 10.011 mls/ hr IV .Q24H [facility] Rx#: [id number] Norepinephrine 32 mg In 131.970 144.184 Sodium Chloride 0.9% 218 ml @ 0.05 MCG/KG/MIN 2. 023 mls/hr IV .Q24H [facility] Rx#:[id number] Propofol 1,000 mg In 182.859 192.516 Empty Bag 1 bag @ Titrate IV .Q0M [facility] Rx#: [id number] Oral 45 30 Output: Gastric Drainage 110 Urine 89 147 30 Other: Voiding Method Indwelling Catheter Indwelling Catheter ABP, PAP, CO, CI - Last Documented Arterial Blood Pressure 141/39 - Exam PHYSICAL EXAMINATION: Patient is Currently sedated and intubated... HEENT: Normocephalic. Neck is supple. Pupils reactive. Nostrils clear. Oral cavity is moist. Ears reveal no drainage. Neck reveals no JVD, carotid bruits, or thyromegaly. CHEST EXAMINATION: Trachea is central. Symmetrical expansion.Bibasilar diminished air entry and minimal crackles. . CARDIAC: Normal S1, S2 with no gallops. No murmurs ABDOMEN: Soft. Bowel sounds normal. No organomegaly. No abdominal bruits. Extremities: trace edema. No clubbing or cyanosis Neurologically Patient is currently sedated and intubated. No gross focal deficits noted Skin: No rash or skin lesions. Psychiatric: Could not be assessed at this time. Musculoskeletal: No joint swelling or deformity. - Labs CBC & Chem 7: 02/07/20 04:08 02/07/20 04:08 Labs: Abnormal Lab Results - Last 24 Hours (Table) 02/05/20 02/06/20 02/06/20 Range/Units 23:45 00:29 00:29 WBC (3.8-10.6) k/uL Hgb (11.4-16.0) gm/dL Hct (34.0-46.0) % Neutrophils # (1.3-7.7) k/uL Monocytes # (0-1.0) k/uL PT (9.0-12.0) sec INR (<1.2) APTT 68.9 H (22.0-30.0) sec ABG pH (7.35-7.45) ABG pCO2 (35-45) mmHg ABG pO2 (83-108) mmHg ABG HCO3 (21-25) mmol/L ABG Total CO2 (19-24) mmol/L ABG O2 Saturation (94-97) % Sodium 131 L (137-145) mmol/L Potassium 5.5 H (3.5-5.1) mmol/L Chloride (98-107) mmol/L Carbon Dioxide 9 L* (22-30) mmol/L BUN 40 H (7-17) mg/dL Creatinine 2.29 H (0.52-1.04) mg/dL Glucose 135 H (74-99) mg/dL POC Glucose (mg/dL) 161 H (75-99) mg/dL Calcium 8.0 L (8.4-10.2) mg/dL Total Bilirubin (0.2-1.3) mg/dL AST (14-36) U/L ALT (4-34) U/L Alkaline Phosphatase (38-126) U/L Total Protein (6.3-8.2) g/dL Albumin (3.5-5.0) g/dL 02/06/20 02/06/20 02/06/20 Range/Units 04:03 04:03 05:23 WBC 22.1 H (3.8-10.6) k/uL Hgb 10.3 L (11.4-16.0) gm/dL Hct 32.7 L (34.0-46.0) % Neutrophils # 17.0 H (1.3-7.7) k/uL Monocytes # 2.2 H (0-1.0) k/uL PT (9.0-12.0) sec INR (<1.2) APTT (22.0-30.0) sec ABG pH 7.25 L (7.35-7.45) ABG pCO2 18 L* (35-45) mmHg ABG pO2 79 L (83-108) mmHg ABG HCO3 8 L* (21-25) mmol/L ABG Total CO2 8 L (19-24) mmol/L ABG O2 Saturation 93.1 L (94-97) % Sodium 129 L (137-145) mmol/L Potassium 5.7 H (3.5-5.1) mmol/L Chloride (98-107) mmol/L Carbon Dioxide 9 L* (22-30) mmol/L BUN 41 H (7-17) mg/dL Creatinine 2.51 H (0.52-1.04) mg/dL Glucose 120 H (74-99) mg/dL POC Glucose (mg/dL) (75-99) mg/dL Calcium 7.9 L (8.4-10.2) mg/dL Total Bilirubin 1.5 H (0.2-1.3) mg/dL AST 2957 H (14-36) U/L ALT 2030 H (4-34) U/L Alkaline Phosphatase 130 H (38-126) U/L Total Protein 5.4 L (6.3-8.2) g/dL Albumin 3.1 L (3.5-5.0) g/dL 02/06/20 02/06/20 02/06/20 Range/Units 05:59 06:00 12:45 WBC (3.8-10.6) k/uL Hgb (11.4-16.0) gm/dL Hct (34.0-46.0) % Neutrophils # (1.3-7.7) k/uL Monocytes # (0-1.0) k/uL PT 22.2 H (9.0-12.0) sec INR 2.3 H (<1.2) APTT 63.2 H 48.0 H (22.0-30.0) sec ABG pH (7.35-7.45) ABG pCO2 (35-45) mmHg ABG pO2 (83-108) mmHg ABG HCO3 (21-25) mmol/L ABG Total CO2 (19-24) mmol/L ABG O2 Saturation (94-97) % Sodium (137-145) mmol/L Potassium (3.5-5.1) mmol/L Chloride (98-107) mmol/L Carbon Dioxide (22-30) mmol/L BUN (7-17) mg/dL Creatinine (0.52-1.04) mg/dL Glucose (74-99) mg/dL POC Glucose (mg/dL) 134 H (75-99) mg/dL Calcium (8.4-10.2) mg/dL Total Bilirubin (0.2-1.3) mg/dL AST (14-36) U/L ALT (4-34) U/L Alkaline Phosphatase (38-126) U/L Total Protein (6.3-8.2) g/dL Albumin (3.5-5.0) g/dL 02/06/20 02/06/20 02/06/20 Range/Units 12:51 13:00 17:11 WBC (3.8-10.6) k/uL Hgb (11.4-16.0) gm/dL Hct (34.0-46.0) % Neutrophils # (1.3-7.7) k/uL Monocytes # (0-1.0) k/uL PT (9.0-12.0) sec INR (<1.2) APTT (22.0-30.0) sec ABG pH 7.51 H (7.35-7.45) ABG pCO2 18 L* (35-45) mmHg ABG pO2 (83-108) mmHg ABG HCO3 14 L (21-25) mmol/L ABG Total CO2 15 L (19-24) mmol/L ABG O2 Saturation 98.0 H (94-97) % Sodium 132 L (137-145) mmol/L Potassium (3.5-5.1) mmol/L Chloride (98-107) mmol/L Carbon Dioxide 14 L (22-30) mmol/L BUN 49 H (7-17) mg/dL Creatinine 2.85 H (0.52-1.04) mg/dL Glucose 257 H (74-99) mg/dL POC Glucose (mg/dL) 309 H (75-99) mg/dL Calcium 7.1 L (8.4-10.2) mg/dL Total Bilirubin 1.6 H (0.2-1.3) mg/dL AST 6630 H (14-36) U/L ALT 3503 H (4-34) U/L Alkaline Phosphatase (38-126) U/L Total Protein 4.9 L (6.3-8.2) g/dL Albumin 2.8 L (3.5-5.0) g/dL 02/06/20 02/06/20 02/06/20 Range/Units 18:24 18:27 20:20 WBC (3.8-10.6) k/uL Hgb (11.4-16.0) gm/dL Hct (34.0-46.0) % Neutrophils # (1.3-7.7) k/uL Monocytes # (0-1.0) k/uL PT (9.0-12.0) sec INR (<1.2) APTT (22.0-30.0) sec ABG pH (7.35-7.45) ABG pCO2 (35-45) mmHg ABG pO2 (83-108) mmHg ABG HCO3 (21-25) mmol/L ABG Total CO2 (19-24) mmol/L ABG O2 Saturation (94-97) % Sodium 129 L (137-145) mmol/L Potassium (3.5-5.1) mmol/L Chloride 97 L (98-107) mmol/L Carbon Dioxide 18 L (22-30) mmol/L BUN 55 H (7-17) mg/dL Creatinine 3.15 H (0.52-1.04) mg/dL Glucose 290 H (74-99) mg/dL POC Glucose (mg/dL) 339 H 287 H (75-99) mg/dL Calcium 6.9 L (8.4-10.2) mg/dL Total Bilirubin (0.2-1.3) mg/dL AST (14-36) U/L ALT (4-34) U/L Alkaline Phosphatase (38-126) U/L Total Protein (6.3-8.2) g/dL Albumin (3.5-5.0) g/dL 02/06/20 Range/Units 20:23 WBC (3.8-10.6) k/uL Hgb (11.4-16.0) gm/dL Hct (34.0-46.0) % Neutrophils # (1.3-7.7) k/uL Monocytes # (0-1.0) k/uL PT (9.0-12.0) sec INR (<1.2) APTT (22.0-30.0) sec ABG pH (7.35-7.45) ABG pCO2 27 L (35-45) mmHg ABG pO2 (83-108) mmHg ABG HCO3 17 L (21-25) mmol/L ABG Total CO2 18 L (19-24) mmol/L ABG O2 Saturation 97.2 H (94-97) % Sodium (137-145) mmol/L Potassium (3.5-5.1) mmol/L Chloride (98-107) mmol/L Carbon Dioxide (22-30) mmol/L BUN (7-17) mg/dL Creatinine (0.52-1.04) mg/dL Glucose (74-99) mg/dL POC Glucose (mg/dL) (75-99) mg/dL Calcium (8.4-10.2) mg/dL Total Bilirubin (0.2-1.3) mg/dL AST (14-36) U/L ALT (4-34) U/L Alkaline Phosphatase (38-126) U/L Total Protein (6.3-8.2) g/dL Albumin (3.5-5.0) g/dL Assessment and Plan Assessment: Acute non-ST elevated DC with elevated troponin level. Status post cardiac catheterization. Cardiogenic shock. With RCA occlusion and nondominant circumflex LAD was stented With RCA occlusion and nondominant circumflex LAD was stented. 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 Fibromyalgia Hypertension Hyperlipidemia History of DC Rheumatoid arthritis and osteoarthritis Diabetic peripheral neuropathy Chronic back pain Degenerative disc disease Hiatal hernia IBS History of diverticulosis History of skin cancer removal Depression Obesity with BMI 30.1 Plan: Patient is being continued on pressor support and intra-aortic balloon pump. Status post stent placement. Continued on mechanical ventilator. Cardiology and pulmonary is following. Patient is also on amiodarone and Heparin drip. Prognosis is poor. Time with Patient: Greater than 30
--- NOTE | 2020-02-07 23:19 | P.PN ---
Subjective Progress Note Date: 02/07/20 Principal diagnosis: Cardiogenic shock NTEMI Patient is a 79-year-old female with a known history of coronary artery disease status post stent placement x6 as per patient, history of DVT on Pradaxa, fibromyalgia, hypertension, hyperlipidemia, history of NC, osteoarthritis and rh eumatoid arthritis, mmx-vkpkbha-mjmwdxvf type 2, diabetic peripheral neuropathy and chronic back pain and other multiple medical problems came to ER with the complaints of chest pain and worsening shortness of breath since yesterday. Patient states that she felt bandlike sensation across the upper chest and to the back. Symptoms are getting worse since yesterday afternoon.Patient has been having ongoing symptoms. Patient has been having symptoms for the past 2 days. No complaints of cough or sputum production. No fever no chills. No nausea vomiting or abdominal pain or diarrhea. Denied any recent illnesses. Patient called EMS today. Was found to be pale and diaphoretic. Patient was given aspirin and 2 nitroglycerin tablets enroute to ER which did drop her blood pressure [address] angiogram of the chest showed findings consistent with congestive heart failure with bilateral pleural effusions. CT of the abdomen pelvis was done showed no acute intra-abdominal adenopathy or abnormality. EKG showed sinus tachycardia. T wave Inversions in the lateral leads. Laboratory data showed WBC 9.3, hemoglobin 9.6 and platelets 286 D-dimer 3.17 Sodium 133, potassium 4.7, BUN 22 and creatinine 0.91, bicarb 15 Blood sugar was 291 on admission AST 98 and ALT 30 Troponin 7.36, 27.1 and 44.3 proBNP 16 500 Lipase 32 02/05/20 Patient is status post cardiac catheterization. During procedure patient came hypotensive and developed episode of V. tach. Patient was intubated. An intra- aortic balloon pump was inserted as the patient went into cardiogenic shock. Patient was started on amiodarone drip. Cardiac catheterization showed chronically occluded proximal and mid RCA with collaterals from the left system. There was subtotal occlusion of the mid LAD and distal segment of the stented area. There is mild disease in the circumflex. Stenting of the LAD was done. Patient is currently being monitored in the MICU. Chest x-ray showed CHF/pulmonary edema. Current laboratory data and medications reviewed. Laboratory data showed WBC 13.0, hemoglobin 9.9 and platelets 327 INR 3.5 Sodium 131, potassium 5.8, chloride 105, bicarbonate 39 BUN 31 creatinine 1.6 Blood sugar is 287 AST 581, ALT 319 and alk phos 96 02/06/2020 Patient remains on mechanical ventilator secondary to cardiogenic shock. Patient is also on intra-aortic balloon pump. Patient is on sedation. Continued on pressor support with norepinephrine and also on amiodarone drip. Patient is on IV heparin drip. Laboratory data this morning showed pH of 7.25, PCO2 18, PO2 79 and bicarb is 8 Sodium 139, potassium 5.7, chloride 103 and bicarb is 9 BUN 41 and creatinine 2.51 Marisa is elevated with AST 2957, ALT 2030 alk phos 130 Bilirubin is 1.5 Patient is been shock liver. Chest x-ray showed mildly decreased pulmonary vascular congestion. Persistent small bilateral pleural effusions right greater than left. Patient has been afebrile. 02/07/2020 Patient remained mechanical ventilator and is currently sedated. Patient is been cardiogenic shock. Patient also having shock liver with elevated liver enzymes. Intra-aortic balloon pump is in place. Patient was given a dose of IV Lasix. Laboratory data showed WBC 13.9, hemoglobin 9.6 and platelets 144 INR is 1.9 Sodium 128, potassium 4.0, chloride 97, bicarb is 20 BUN 61 creatinine 3.3 Marisa is elevated with AST 4064 and ALT 2704 Cardiology pulmonary and nephrology was following. Chest x-ray showed slight worsening in the appearance of the chest. Due to worsening multiorgan dysfunction and prognosis is poor. After discussion with the family is considering comfort care. Current medications reviewed. Objective - Vital Signs Vital signs: Vital Signs Temp 97.6 F 02/07/20 16:00 Pulse 75 02/07/20 18:00 Resp 16 02/07/20 18:00 BP 122/51 02/06/20 21:00 Pulse Ox 92 L 02/07/20 17:15 Intake & Output 02/07/20 02/07/20 02/08/20 06:59 18:59 06:59 Intake Total 1230.511 492.304 Output Total 159 209 Balance 1071.511 283.304 Weight 87.6 kg Intake: IV 891.2 323 0.9 NaCl- 120 40 Amiodarone 0.5mg/hr 63.2 IABP Pressure bag 36 33 Pressure bags (AL & CVP) 72 60 Sodium Chloride 0.9% 500 140 ml 500 ml @ 20 mls/hr IV .Q24H [facility] Rx#:[id number] Sodium bicarbonate drip ( 600 50 150mg in d5w) Intake, IV Titration 294.311 169.304 Amount Insulin Regular 100 unit 41.714 In Sodium Chloride 0.9% 100 ml @ Per Protocol IV .Q0M [facility] Rx#:[id number] Norepinephrine 32 mg In 105.303 32.072 Sodium Chloride 0.9% 218 ml @ 0.05 MCG/KG/MIN 2. 023 mls/hr IV .Q24H [facility] Rx#:[id number] Propofol 1,000 mg In 189.008 95.518 Empty Bag 1 bag @ Titrate IV .Q0M [facility] Rx#: [id number] Oral 45 Output: Urine 159 209 Other: Voiding Method Indwelling Catheter Indwelling Catheter ABP, PAP, CO, CI - Last Documented Arterial Blood Pressure 88/38 - Exam PHYSICAL EXAMINATION: Patient is Currently sedated and intubated... HEENT: Normocephalic. Neck is supple. Pupils reactive. Nostrils clear. Oral cavity is moist. Ears reveal no drainage. Neck reveals no JVD, carotid bruits, or thyromegaly. CHEST EXAMINATION: Trachea is central. Symmetrical expansion.Bibasilar diminished air entry and minimal crackles. . CARDIAC: Normal S1, S2 with no gallops. No murmurs ABDOMEN: Soft. Bowel sounds normal. No organomegaly. No abdominal bruits. Extremities: trace edema. No clubbing or cyanosis Neurologically Patient is currently sedated and intubated. No gross focal deficits noted Skin: No rash or skin lesions. Psychiatric: Could not be assessed at this time. Musculoskeletal: No joint swelling or deformity. - Labs CBC & Chem 7: 02/07/20 04:08 02/07/20 04:08 Labs: Abnormal Lab Results - Last 24 Hours (Table) 02/07/20 02/07/20 02/07/20 Range/Units 00:49 04:08 04:08 WBC 13.9 H (3.8-10.6) k/uL RBC 3.46 L (3.80-5.40) m/uL Hgb 9.6 L (11.4-16.0) gm/dL Hct 29.0 L (34.0-46.0) % Plt Count 144 L (150-450) k/uL Neutrophils # 11.9 H (1.3-7.7) k/uL PT 18.5 H (9.0-12.0) sec INR 1.9 H (<1.2) APTT 58.4 H (22.0-30.0) sec ABG pH (7.35-7.45) ABG pCO2 (35-45) mmHg ABG pO2 (83-108) mmHg ABG HCO3 (21-25) mmol/L ABG O2 Saturation (94-97) % Sodium (137-145) mmol/L Chloride (98-107) mmol/L Carbon Dioxide (22-30) mmol/L BUN (7-17) mg/dL Creatinine (0.52-1.04) mg/dL Glucose (74-99) mg/dL POC Glucose (mg/dL) 350 H (75-99) mg/dL Calcium (8.4-10.2) mg/dL AST (14-36) U/L ALT (4-34) U/L Total Protein (6.3-8.2) g/dL Albumin (3.5-5.0) g/dL 02/07/20 02/07/20 02/07/20 Range/Units 04:08 04:26 06:03 WBC (3.8-10.6) k/uL RBC (3.80-5.40) m/uL Hgb (11.4-16.0) gm/dL Hct (34.0-46.0) % Plt Count (150-450) k/uL Neutrophils # (1.3-7.7) k/uL PT (9.0-12.0) sec INR (<1.2) APTT (22.0-30.0) sec ABG pH (7.35-7.45) ABG pCO2 30 L (35-45) mmHg ABG pO2 (83-108) mmHg ABG HCO3 20 L (21-25) mmol/L ABG O2 Saturation (94-97) % Sodium 128 L (137-145) mmol/L Chloride 97 L (98-107) mmol/L Carbon Dioxide 20 L (22-30) mmol/L BUN 62 H (7-17) mg/dL Creatinine 3.30 H (0.52-1.04) mg/dL Glucose 286 H (74-99) mg/dL POC Glucose (mg/dL) 323 H (75-99) mg/dL Calcium 6.5 L (8.4-10.2) mg/dL AST 4064 H (14-36) U/L ALT 2704 H (4-34) U/L Total Protein 4.9 L (6.3-8.2) g/dL Albumin 2.6 L (3.5-5.0) g/dL 02/07/20 02/07/20 02/07/20 Range/Units 09:21 10:07 11:07 WBC (3.8-10.6) k/uL RBC (3.80-5.40) m/uL Hgb (11.4-16.0) gm/dL Hct (34.0-46.0) % Plt Count (150-450) k/uL Neutrophils # (1.3-7.7) k/uL PT (9.0-12.0) sec INR (<1.2) APTT (22.0-30.0) sec ABG pH (7.35-7.45) ABG pCO2 (35-45) mmHg ABG pO2 (83-108) mmHg ABG HCO3 (21-25) mmol/L ABG O2 Saturation (94-97) % Sodium (137-145) mmol/L Chloride (98-107) mmol/L Carbon Dioxide (22-30) mmol/L BUN (7-17) mg/dL Creatinine (0.52-1.04) mg/dL Glucose (74-99) mg/dL POC Glucose (mg/dL) 321 H 323 H 264 H (75-99) mg/dL Calcium (8.4-10.2) mg/dL AST (14-36) U/L ALT (4-34) U/L Total Protein (6.3-8.2) g/dL Albumin (3.5-5.0) g/dL 02/07/20 02/07/20 02/07/20 Range/Units 11:34 11:46 12:32 WBC (3.8-10.6) k/uL RBC (3.80-5.40) m/uL Hgb (11.4-16.0) gm/dL Hct (34.0-46.0) % Plt Count (150-450) k/uL Neutrophils # (1.3-7.7) k/uL PT (9.0-12.0) sec INR (<1.2) APTT (22.0-30.0) sec ABG pH 7.31 L (7.35-7.45) ABG pCO2 (35-45) mmHg ABG pO2 59 L* (83-108) mmHg ABG HCO3 (21-25) mmol/L ABG O2 Saturation 84.8 L (94-97) % Sodium (137-145) mmol/L Chloride (98-107) mmol/L Carbon Dioxide (22-30) mmol/L BUN (7-17) mg/dL Creatinine (0.52-1.04) mg/dL Glucose (74-99) mg/dL POC Glucose (mg/dL) 253 H 222 H (75-99) mg/dL Calcium (8.4-10.2) mg/dL AST (14-36) U/L ALT (4-34) U/L Total Protein (6.3-8.2) g/dL Albumin (3.5-5.0) g/dL 02/07/20 02/07/20 02/07/20 Range/Units 13:09 14:19 15:02 WBC (3.8-10.6) k/uL RBC (3.80-5.40) m/uL Hgb (11.4-16.0) gm/dL Hct (34.0-46.0) % Plt Count (150-450) k/uL Neutrophils # (1.3-7.7) k/uL PT (9.0-12.0) sec INR (<1.2) APTT (22.0-30.0) sec ABG pH (7.35-7.45) ABG pCO2 (35-45) mmHg ABG pO2 (83-108) mmHg ABG HCO3 (21-25) mmol/L ABG O2 Saturation (94-97) % Sodium (137-145) mmol/L Chloride (98-107) mmol/L Carbon Dioxide (22-30) mmol/L BUN (7-17) mg/dL Creatinine (0.52-1.04) mg/dL Glucose (74-99) mg/dL POC Glucose (mg/dL) 230 H 187 H 169 H (75-99) mg/dL Calcium (8.4-10.2) mg/dL AST (14-36) U/L ALT (4-34) U/L Total Protein (6.3-8.2) g/dL Albumin (3.5-5.0) g/dL Microbiology - Last 24 Hours (Table) 02/05/20 01:34 Gram Stain - Final Sputum Sputum Culture - Final Assessment and Plan Assessment: Acute non-ST elevated NC with elevated troponin level. Status post cardiac catheterization. Cardiogenic shock. With RCA occlusion and nondominant circumflex LAD was stented With RCA occlusion and nondominant circumflex LAD was stented. 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 Fibromyalgia Hypertension Hyperlipidemia History of NC Rheumatoid arthritis and osteoarthritis Diabetic peripheral neuropathy Chronic back pain Degenerative disc disease Hiatal hernia IBS History of diverticulosis History of skin cancer removal Depression Obesity with BMI 30.1 Plan: Patient is being continued on pressor support and intra-aortic balloon pump. Status post stent placement. Continued on mechanical ventilator. Cardiology and pulmonary is following. Patient is also on amiodarone and Heparin drip. Prognosis is poor. Time with Patient: Greater than 30
--- NOTE | 2020-02-09 16:08 | CDI ---
Documentation Clarification Form Date: 02/09/20 From: Ariella Menchaca CCS Phone: If you have a question about this query, please contact Seema Eric, Claims Manager at [phone] between 8am and 5pm. Admit Date: 02/04/20 Discharge Date: 02/07/20 Patient Name: Marie Zazueta Visit Number: [id number] ATTENTION: The Clinical Documentation Specialists (CDI) and [facility] Coding Staff appreciate your assistance in clarifying documentation. Please respond to the clarification below the line at the bottom and electronically sign. The CDI & [facility] Coding staff will review the response and follow-up if needed. Please note: Queries are made part of the Legal Health Record. If you have any questions, please contact the author of this message via ITS. Dear Dr. Tubbs, Documentation states: Drop in hemoglobin to 9.6, Consult 02/03 History/Risk Factors: CAD, NM, HTN, CHF, Shock liver, Cardiogenic shock Clinical indicators: Significant drop in Hgb/Hct Hgb: 9.6, 10.3, 9.9 Hct: 31.0, 31.7, 30.9 Treatment: Monitor Clinical significance of diagnostic testing and treatment CANNOT be assumed or coded without physician documentation of significance if any. Please clarify what abnormal laboratory signifies: Anemia (please specify etiology) Disease process, please specify Infectious process, please specify Abnormal Lab Value Unable to determine Other, please specify Chronic anemia MTDD
--- NOTE | 2020-02-09 16:18 | P.DS ---
Providers Date of admission: 02/04/20 16:18 Expected date of discharge: 02/07/20 Attending physician: Dayton Tubbs Consults: 02/04/20 16:19 Consult Physician Urgent Consulting Provider: [facility] Consult Reason/Comments: acute chest pain, NSTEMI, AECHF Do you want consulting provider notified?: Already Contacted 02/04/20 17:08 Consult Physician Urgent Consulting Provider: Loretta Bruce Consult Reason/Comments: chest pain, NSTEMI, AECHF Do you want consulting provider notified?: Already Contacted 02/05/20 10:44 Consult Physician Routine Consulting Provider: [facility] Consult Reason/Comments: Post Interventional patient Do you want consulting provider notified?: Already Contacted 02/06/20 05:30 Consult Physician Urgent Consulting Provider: Kit Gaston Consult Reason/Comments: altered labs and low urine output Do you want consulting provider notified?: Yes Primary care physician: Ziyad Layton Hospital Course: diagnosis Acute non-ST elevated HI with elevated troponin level. Status post cardiac catheterization. Cardiogenic shock. With RCA occlusion and nondominant circumflex LAD was stented With RCA occlusion and nondominant circumflex LAD was stented. 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 Fibromyalgia Hypertension Hyperlipidemia History of HI Rheumatoid arthritis and osteoarthritis Diabetic peripheral neuropathy Chronic back pain Degenerative disc disease Hiatal hernia IBS History of diverticulosis History of skin cancer removal Depression Obesity with BMI 30.1 Hospital course Patient is a 79-year-old female with a known history of coronary artery disease status post stent placement x6 as per patient, history of DVT on Pradaxa, fibromyalgia, hypertension, hyperlipidemia, history of HI, osteoarthritis and rheumatoid arthritis, svl-[id number]-zyedhbza type 2, diabetic peripheral neuropathy and chronic back pain and other multiple medical problems came to ER with the complaints of chest pain and worsening shortness of breath since yesterday. Patient states that she felt bandlike sensation across the upper chest and to the back. Symptoms are getting worse since yesterday afternoon.Patient has been having ongoing symptoms. Patient has been having s ymptoms for the past 2 days. No complaints of cough or sputum production. No fever no chills. No nausea vomiting or abdominal pain or diarrhea. Denied any recent illnesses. Patient called EMS today. Was found to be pale and diaphoretic. Patient was given aspirin and 2 nitroglycerin tablets enroute to ER which did drop her blood pressure [address] angiogram of the chest showed findings consistent with congestive heart failure with bilateral pleural effusions. CT of the abdomen pelvis was done showed no acute intra-abdominal adenopathy or abnormality. EKG showed sinus tachycardia. T wave Inversions in the lateral leads. Laboratory data showed WBC 9.3, hemoglobin 9.6 and platelets 286 D-dimer 3.17 Sodium 133, potassium 4.7, BUN 22 and creatinine 0.91, bicarb 15 Blood sugar was 291 on admission AST 98 and ALT 30 Troponin 7.36, 27.1 and 44.3 proBNP 16 500 Lipase 32 02/05/20 Patient is status post cardiac catheterization. During procedure patient came hypotensive and developed episode of V. tach. Patient was intubated. An intra- aortic balloon pump was inserted as the patient went into cardiogenic shock. Patient was started on amiodarone drip. Cardiac catheterization showed chronically occluded proximal and mid RCA with collaterals from the left system. There was subtotal occlusion of the mid LAD and distal segment of the stented area. There is mild disease in the circumflex. Stenting of the LAD was done. Patient is currently being monitored in the MICU. Chest x-ray showed CHF/pulmonary edema. Current laboratory data and medications reviewed. Laboratory data showed WBC 13.0, hemoglobin 9.9 and platelets 327 INR 3.5 Sodium 131, potassium 5.8, chloride 105, bicarbonate 39 BUN 31 creatinine 1.6 Blood sugar is 287 AST 581, ALT 319 and alk phos 96 02/06/2020 Patient remains on mechanical ventilator secondary to cardiogenic shock. Patient is also on intra-aortic balloon pump. Patient is on sedation. Continued on pressor support with norepinephrine and also on amiodarone drip. Patient is on IV heparin drip. Laboratory data this morning showed pH of 7.25, PCO2 18, PO2 79 and bicarb is 8 Sodium 139, potassium 5.7, chloride 103 and bicarb is 9 BUN 41 and creatinine 2.51 Marisa is elevated with AST 2957, ALT 2030 alk phos 130 Bilirubin is 1.5 Patient is been shock liver. Chest x-ray showed mildly decreased pulmonary vascular congestion. Persistent small bilateral pleural effusions right greater than left. Patient has been afebrile. 02/07/2020 Patient remained mechanical ventilator and is currently sedated. Patient is been cardiogenic shock. Patient also having shock liver with elevated liver enzymes. Intra-aortic balloon pump is in place. Patient was given a dose of IV Lasix. Laboratory data showed WBC 13.9, hemoglobin 9.6 and platelets 144 INR is 1.9 Sodium 128, potassium 4.0, chloride 97, bicarb is 20 BUN 61 creatinine 3.3 Marisa is elevated with AST 4064 and ALT 2704 Cardiology pulmonary and nephrology was following. Chest x-ray showed slight worsening in the appearance of the chest. Due to worsening multiorgan dysfunction and prognosis is poor. After discussion with the family is considering comfort care.patient was transferred to hospice care and patient was on 02/07/20 at19:26, family has been notified. Plan - Discharge Summary Discharge Rx Participant: No New Discharge Prescriptions: No Action Cevimeline [Evoxac] 30 mg PO BID valACYclovir [Valtrex] 500 mg PO DAILY Nitroglycerin Sl Tabs [Nitrostat] 0.4 mg SUBLINGUAL Q5M PRN tab PRN Reason: Chest Pain Insulin Glargine,Hum.rec.anlog [Lantus Solostar] 10 unit SQ HS rOPINIRole HCL [Requip] 0.25 mg PO HS Loratadine [Claritin] 10 mg PO DAILY PRN PRN Reason: Allergy Symptoms Memantine [Namenda] 10 mg PO BID Zolpidem [Ambien] 5 mg PO HS PRN tab PRN Reason: Insomnia Dabigatran [Pradaxa] 150 mg PO BID #60 capsule Sennosides [Senokot] 8.6 mg PO DAILY PRN PRN Reason: Constipation Metoprolol Succinate [Toprol XL] 25 mg PO DAILY Primidone [Mysoline] 25 mg PO HS Omeprazole [PriLOSEC] 40 mg PO DAILY Lisinopril [Zestril] 2.5 mg PO DAILY Gabapentin [Neurontin] 300 mg PO TID Furosemide [Lasix] 20 mg PO DAILY Fluticasone Nasal [place] [Flonase Nasal [place]] 2 spr EA NOSTRIL DAILY PRN PRN Reason: Allergy Symptoms DULoxetine HCL [Cymbalta] 60 mg PO DAILY Cromolyn 4% Eye Drops 1 drop BOTH EYES DAILY busPIRone HCL 10 mg PO BID Atorvastatin [Lipitor] 40 mg PO HS Aspirin 81 mg PO DAILY #30 chewable Terazosin [Hytrin] 1 mg PO HS Insulin Lispro [humaLOG Kwikpen] 5 unit SQ AC-TID Insulin Lispro [humaLOG Kwikpen] See Protocol SQ AC-TID fentaNYL 12MCG/HR PATCH [Duragesic 12MCG/HR] 1 patch TRANSDERM Q72H HYDROcodone/APAP 5-325MG [[place] 5-325] 1 tab PO BID hydrOXYzine HCL [Atarax] 25 mg PO TID Ibuprofen [Motrin] 800 mg PO Q8H PRN PRN Reason: Pain Discharge Medication List Cevimeline [Evoxac] 30 mg PO BID 04/29/14 [History] valACYclovir [Valtrex] 500 mg PO DAILY 12/01/17 [History] Nitroglycerin Sl Tabs [Nitrostat] 0.4 mg SUBLINGUAL Q5M PRN tab 01/11/18 [Rx] Insulin Glargine,Hum.rec.anlog [Lantus Solostar] 10 unit SQ HS 07/18/18 [History] rOPINIRole HCL [Requip] 0.25 mg PO HS 07/18/18 [History] Loratadine [Claritin] 10 mg PO DAILY PRN 02/01/19 [History] Memantine [Namenda] 10 mg PO BID 03/25/19 [History] Zolpidem [Ambien] 5 mg PO HS PRN tab 03/27/19 [Rx] Dabigatran [Pradaxa] 150 mg PO BID #60 capsule 05/13/19 [Rx] Atorvastatin [Lipitor] 40 mg PO HS 11/02/19 [History] Cromolyn 4% Eye Drops 1 drop BOTH EYES DAILY 11/02/19 [History] DULoxetine HCL [Cymbalta] 60 mg PO DAILY 11/02/19 [History] Fluticasone Nasal [place] [Flonase Nasal [place]] 2 spr EA NOSTRIL DAILY PRN 11/02/19 [History] Furosemide [Lasix] 20 mg PO DAILY 11/02/19 [History] Gabapentin [Neurontin] 300 mg PO TID 11/02/19 [History] Lisinopril [Zestril] 2.5 mg PO DAILY 11/02/19 [History] Metoprolol Succinate [Toprol XL] 25 mg PO DAILY 11/02/19 [History] Omeprazole [PriLOSEC] 40 mg PO DAILY 11/02/19 [History] Primidone [Mysoline] 25 mg PO HS 11/02/19 [History] Sennosides [Senokot] 8.6 mg PO DAILY PRN 11/02/19 [History] busPIRone HCL 10 mg PO BID 11/02/19 [History] Aspirin 81 mg PO DAILY #30 chewable 11/04/19 [Rx] Insulin Lispro [humaLOG Kwikpen] 5 unit SQ AC-TID 12/14/19 [History] Insulin Lispro [humaLOG Kwikpen] See Protocol SQ AC-TID 12/14/19 [History] Terazosin [Hytrin] 1 mg PO HS 12/14/19 [History] HYDROcodone/APAP 5-325MG [[place] 5-325] 1 tab PO BID 02/04/20 [History] Ibuprofen [Motrin] 800 mg PO Q8H PRN 02/04/20 [History] fentaNYL 12MCG/HR PATCH [Duragesic 12MCG/HR] 1 patch TRANSDERM Q72H 02/04/20 [History] hydrOXYzine HCL [Atarax] 25 mg PO TID 02/04/20 [History] Follow up Appointment(s)/Referral(s): Ziyad Julian DO [Primary Care Provider] - 1-2 days Discharge Disposition: - Preliminary Cause of Preliminary Cause of : Cardiogenic shocksecondary to acute non-ST elevated HI
[2020-02-11 07:53] LABS: ABG PCO2 18 mmHg (35-45)
[2020-02-11 07:54] LABS: ABG HCO3 8 mmol/L (21-25)
== END 2020-02-07 22:30 | disposition expired | DRG 270 ==
LOC: EC 13:54 → 3SCARD 16:18 → 2SICU 17:25
PROVIDERS: ADMIT Internal Medicine; ATTEND Internal Medicine
PROC: B2111ZZ Fluoroscopy of Multiple Coronary Arteries using Low Osmolar Contrast (ICD-10-PCS; principal; 2020-02-05 09:50)
PROC: 4A023N7 Measurement of Cardiac Sampling and Pressure, Left Heart, Percutaneous Approach (ICD-10-PCS; principal; 2020-02-05 09:50)
PROC: 5A02210 Assistance with Cardiac Output using Balloon Pump, Continuous (ICD-10-PCS; principal; 2020-02-05 09:50)
PROC: 027034Z Dilation of Coronary Artery, One Artery with Drug-eluting Intraluminal Device, Percutaneous Approach (ICD-10-PCS; principal; 2020-02-05 09:50)
PROC: 04HY32Z Insertion of Monitoring Device into Lower Artery, Percutaneous Approach (ICD-10-PCS; 2020-02-05 09:50)
PROC: 0D9670Z Drainage of Stomach with Drainage Device, Via Natural or Artificial Opening (ICD-10-PCS; 2020-02-05 09:50)
PROC: 4A133B1 Monitoring of Arterial Pressure, Peripheral, Percutaneous Approach (ICD-10-PCS; 2020-02-05 09:50)
PROC: 3E043XZ Introduction of Vasopressor into Central Vein, Percutaneous Approach (ICD-10-PCS; 2020-02-05 09:50)
PROC: 02HV33Z Insertion of Infusion Device into Superior Vena Cava, Percutaneous Approach (ICD-10-PCS; 2020-02-05 09:50)
PROC: 0BH17EZ Insertion of Endotracheal Airway into Trachea, Via Natural or Artificial Opening (ICD-10-PCS; 2020-02-05 09:50)
PROC: 5A1945Z Respiratory Ventilation, 24-96 Consecutive Hours (ICD-10-PCS; 2020-02-05 09:50)
PROC: 4A133J1 Monitoring of Arterial Pulse, Peripheral, Percutaneous Approach (ICD-10-PCS; 2020-02-05 09:50)
DX: I21.4 Non-ST elevation (NSTEMI) myocardial infarction (principal); I50.23 Acute on chronic systolic (congestive) heart failure; N17.0 Acute kidney failure with tubular necrosis; J96.01 Acute respiratory failure with hypoxia; K72.00 Acute and subacute hepatic failure without coma; I47.2 Ventricular tachycardia; E87.4 Mixed disorder of acid-base balance; E87.1 Hypo-osmolality and hyponatremia; Z11.59 Encounter for screening for other viral diseases; Z66 Do not resuscitate; Z51.5 Encounter for palliative care; R57.0 Cardiogenic shock; I11.0 Hypertensive heart disease with heart failure; E11.42 Type 2 diabetes mellitus with diabetic polyneuropathy; F03.90 Unspecified dementia, unspecified severity, without behavioral disturbance, psychotic disturbance, mood disturbance, and anxiety; E11.65 Type 2 diabetes mellitus with hyperglycemia; Z79.4 Long term (current) use of insulin; M06.9 Rheumatoid arthritis, unspecified; I25.10 Atherosclerotic heart disease of native coronary artery without angina pectoris; I25.5 Ischemic cardiomyopathy; E78.5 Hyperlipidemia, unspecified; M79.7 Fibromyalgia; M19.90 Unspecified osteoarthritis, unspecified site; K58.9 Irritable bowel syndrome, unspecified; G89.29 Other chronic pain; K57.90 Diverticulosis of intestine, part unspecified, without perforation or abscess without bleeding; F32.9 Major depressive disorder, single episode, unspecified; E66.9 Obesity, unspecified; E87.5 Hyperkalemia; B02.9 Zoster without complications; I08.1 Rheumatic disorders of both mitral and tricuspid valves; G25.81 Restless legs syndrome; D64.9 Anemia, unspecified; M51.36 Other intervertebral disc degeneration, lumbar region; K44.9 Diaphragmatic hernia without obstruction or gangrene; K59.00 Constipation, unspecified; G47.00 Insomnia, unspecified; T50.8X5A Adverse effect of diagnostic agents, initial encounter; I25.2 Old myocardial infarction; Z68.33 Body mass index [BMI] 33.0-33.9, adult; Z71.3 Dietary counseling and surveillance; Z79.899 Other long term (current) drug therapy; Z79.82 Long term (current) use of aspirin; Z79.01 Long term (current) use of anticoagulants; Z95.5 Presence of coronary angioplasty implant and graft; Z86.718 Personal history of other venous thrombosis and embolism; Z91.048 Other nonmedicinal substance allergy status; Z98.42 Cataract extraction status, left eye; Z98.41 Cataract extraction status, right eye; Z90.710 Acquired absence of both cervix and uterus; Z90.49 Acquired absence of other specified parts of digestive tract; Z87.442 Personal history of urinary calculi; Z86.73 Personal history of transient ischemic attack (TIA), and cerebral infarction without residual deficits; Z98.890 Other specified postprocedural states; Z85.828 Personal history of other malignant neoplasm of skin; Z91.040 Latex allergy status; Z88.2 Allergy status to sulfonamides; Z82.49 Family history of ischemic heart disease and other diseases of the circulatory system
CPT/HCPCS: 33967; 36415; 51702; 71045; 71275; 74177; 80048; 80053; 82805; 83690; 83735; 83880; 84100; 84484; 85025; 85379; 85610; 85730; 87070; 87205; 93005; 93308; 93454; 94002; 94003; 96361; 96365; 96366; 96375; 96376; 99285